=== PATIENT | female | born 1955 | race Caucasian/White ===

== ENCOUNTER 2022-10-17 10:20 | Outpatient (OUT) | payer MEDICARE, MEDICAID, SELFPAY ==
[2022-10-17 10:58] LABS: Basophils Absolute Auto 0.1 10^3/uL (0.0-0.1); Basophils Percent Auto 0.7 % (0.2-2.0); Eosinophils Absolute Auto 0.1 10^3/uL (0.0-0.7); Eosinophils Percent Auto 0.7 % (0.9-7.0); Hematocrit 41.6 % (36.0-48.0); Hemoglobin 14.1 g/dL (12.0-16.0); Immature Granulocytes Abs Auto 0.26 10^3/uL (0.00-0.03); Immature Granulocytes Pct Auto 1.6 % (0.0-0.5); Lymphocytes Absolute Auto 2.1 10^3/uL (1.2-3.8); Mean Corpuscular HGB Conc 33.9 g/dL (29.9-35.2); Mean Corpuscular Hemoglobin 31.6 pg (26.7-34.0); Mean Corpuscular Volume 93.3 fL (81.0-99.0); Mean Platelet Volume 8.7 fL (9.5-13.5); Monocytes Absolute Auto 1.4 10^3/uL (0.3-0.8); Monocytes Percent Auto 8.3 % (1.7-12.0); Neutrophils Absolute Auto 12.5 10^3/uL (1.4-6.5); Neutrophils Percent Auto 75.7 % (43.0-75.0); Platelet Count 430 10^3/uL (150-450); Red Blood Count 4.46 10^6/uL (4.20-5.40); Red Cell Distribution Width 14.4 % (11.0-15.0); White Blood Count 16.5 10^3/uL (4.0-11.0)
[2022-10-17 11:29] LABS: Partial Thromboplastin Time 25.1 sec (22.3-36.2); Prothrombin Time 9.6 sec (9.0-11.6)
[2022-10-17 11:49] LABS: INR <0.93
== END 2022-10-17 10:21 | disposition home or self-care (01) ==
PROVIDERS: PCP Family Medicine; Visit Provider Family Medicine
DX: R23.8 Other skin changes (principal)
CPT/HCPCS: 36415; 85002; 85025; 85610; 85730

== ENCOUNTER 2022-12-31 14:10 | Outpatient (OUT) | payer MEDICARE, MEDICAID, SELFPAY ==
--- NOTE | 2022-12-31 14:58 | CA_ITS ---
Patient Name: DAVION HUMPHREYS MR#: [id number] : 1955 Exam Date: 12/31/2022 Ordering Doctor: DR Ajith Miller . ECHOCARDIOGRAM REPORT PROCEDURE: CA ECHO DOPPLER COMPLETE INDICATIONS: Localized edema COMPARISON: None. DESCRIPTION: COMPLETE ECHOCARDIOGRAM Real-time transthoracic echocardiography with 2D, M-mode, spectral and color flow Doppler performed. QUALITY: Technical quality was good. LEFT VENTRICLE: Normal chamber size. Moderate concentric left ventricular hypertrophy (septum 1.9 cm, posterior wall 1.5 cm). Global left ventricular systolic function is normal. LV EF: Estimated left ventricular ejection fraction is 65-70% DIASTOLIC: Normal diastolic dysfunction. ATRIAL SEPTUM: LEFT ATRIUM: Normal chamber size. RIGHT ATRIUM: Normal chamber size. RIGHT VENTRICLE: Normal chamber size. Normal right ventricular systolic function. TRICUSPID VALVE: Normal mobility and thickness. No stenosis with trivial regurgitation. No evidence of pulmonary hypertension. Unable to assess right-sided pressures due to lack of measurable tricuspid regurgitation. MITRAL VALVE: Normal mobility and thickness. No evidence of mitral valve stenosis. Mild mitral annular calcification. Trivial mitral regurgitation. AORTIC VALVE: Normal trileaflet appearance. No visible sclerosis. Normal leaflet mobility. No evidence of aortic valve stenosis. No aortic regurgitation. AORTIC ROOT: Normal diameter and appearance. PULMONIC VALVE: Normal thickness and mobility. No stenosis. Trivial regurgitation. PERICARDIUM: No evidence of pericardial effusion. IVC: Collapses with inspirations. Normal size. PLEURA: CONCLUSION: 1. Moderate concentric left ventricular hypertrophy (septum 1.9 cm, posterior wall 1.5 cm) with normal systolic function. LVEF is estimated at 65 to 70%. 2. Normal right ventricular size and systolic function. 3. Normal diastolic function. 4. No significant valvular dysfunction. 5. Unable to assess right-sided pressures due to lack of measurable tricuspid regurgitation. Adult Echocardiography Procedure Report Left Ventricle LVEDD (3.7 - 5.6 cm): 4.60 cm LVESD (2.2 - 4.0 cm): 3.08 cm LVIVS thickness (0.6 - 1.2 cm): 1.88 cm LVPW thickness (0.5 - 1.0 cm): 1.55 cm e': 0.10 m/s E - e': 7.58 LVOT Max Gradient: 4.77 mm[Hg] LVOT Area (cm2): 1.09 m/s Peak Velocity (LVOT): 1.09 m/s Mean Velocity (LVOT): 0.73 m/s LVOT Diameter 2.29 cm Left Ventricular Ejection Fraction: 65-70 % Left Atrium LA Volume Index (2D A2C): 33.04 ml/m2 Left Atrium Systolic Dimension: 3.79 cm Mitral Valve MV E to A Ratio: 0.69, 0.70, 0.70 Mitral Valve A-Wave Peak Velocity: 1.05 m/s Mitral Valve E-Wave Peak Velocity: 0.73 m/s Right Ventricle RV Internal Diastolic Dimension: 3.11 cm Aorta AO Root Diam: 3.34 cm Ascending Ao Diam: 3.41 cm Aortic Valve AoV Area (Peak Rolly): 2.84 cm2, 2.84 cm2 AoV Area (VTI): 3.52 cm2, 3.52 cm2 Peak Velocity(Antegrade Flow): 1.59 m/s Peak Gradient(Antegrade Flow): 10.09 mm[Hg] Mean Velocity(Antegrade Flow): 1.02 m/s Mean Gradient(Antegrade Flow): 4.81 mm[Hg] Velocity Time Integral: 30.02 cm Tricuspid Valve Peak Velocity (Regurgitant Flow): 1.77 m/s, 1.34 m/s Pulmonic Valve Peak Velocity: 0.93 m/s Peak Gradient: 3.30 mm[Hg], 3.64 mm[Hg] Right Atrium Right Atrium Systolic Pressure: 24.12 ml, 24.12 ml Dictated by: Andrey Nguyen M.D. on 12/31/2022 at 16:18 Approved by: Andrey Nguyen M.D. on 12/31/2022 at 16:25
== END 2022-12-31 14:11 | disposition home or self-care (01) ==
LOC: CARD 14:10
PROVIDERS: PCP Family Medicine; Visit Provider Family Medicine
DX: R60.0 Localized edema (principal)
CPT/HCPCS: 93306

== ENCOUNTER 2023-01-16 13:05 | Outpatient (OUT) | payer MEDICARE, MEDICAID, SELFPAY ==
--- NOTE | 2023-01-16 13:07 | VEIN_ITS ---
Patient Name: DAVION HUMPHREYS MR#: [id number] : 1955 Exam Date: 01/16/2023 Ordering Doctor: DR WADE YU M.D. RADIOLOGY REPORT PROCEDURE: VC EXT VENOUS REFLUX BENJAMIN LMTD COMPARISON: None. 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 The study includes evaluation of the great saphenous vein (GSV), anterior accessory saphenous vein (AASV) and small saphenous vein (SSV). Patient scanned in reverse Trendelenburg and standing. FINDINGS: RIGHT LOWER EXTREMITY: Saphenofemoral Junction Reflux: Yes 6.2mm 1.1 sec GSV: Diam (mm) Reflux/ Time (sec) Proximal Thigh 6.7 Yes 1.2 Mid Thigh 5.0 Yes 0.9 Distal Thigh 4.8 Yes 1.3 Prox Calf 2.2 Yes 0.5 Mid Calf 2.3 Saphenopopliteal Junction Reflux: 4.0mm No SSV: Proximal Calf 3.3 Yes 0.7 Mid Calf 2.4 No AASV: Not present Proximal Thigh Mid Thigh Distal Thigh Thrombi: No acute or chronic thrombus visualized Compressibility: Normal Flow: Normal Preforator: Dist/med calf 2.7mm with 0s reflux. Tech Note: Incompetent GSV. Patent varicose vein dist/med calf 3.2mm with 0s reflux. Patent varicose vein prox/med calf 2.6mm with 0.6s reflux. Patent varicose vein mid/med thigh 4.8mm with 1.9s reflux. 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 Tech Note: Incompetent GSV. Patent varicose vein mid/med calf 2.8mm with 1.5s reflux. CONCLUSION: 1. 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 Consider consultation for endovenous ablation. Dictated by: Levi Alvarez M.D. on 01/17/2023 at 14:15 Approved by: Levi Alvarez M.D. on 01/17/2023 at 14:19
== END 2023-01-16 13:06 | disposition home or self-care (01) ==
LOC: VC 13:05
PROVIDERS: PCP Family Medicine; Visit Provider Radiology Diagnostic Radiology
DX: R60.0 Localized edema (principal); I83.813 Varicose veins of bilateral lower extremities with pain
CPT/HCPCS: 93970

== ENCOUNTER 2023-02-08 14:34 | Emergency (ER) | payer MEDICARE, MEDICAID, SELFPAY ==
--- OUTSIDE RECORDS SUMMARY | 2023-02-08 14:40 | XMS_ITS | CCD ---
Author Name Unknown Address [address] [place] [address] Organization [facility] Care Team Providers Care Phlebotomy Manager Name Role Phone Adán Miller Primary Care Physician [phone] Eula Tyler Unavailable Eula Tyler Primary Care Provider [phone] DAI ., DR MCCAIN Primary Care Unavailable HOY ., DR MCCAIN Admitting Unavailable HOY ., DR MCCAIN Attending Unavailable HOY ., DR MCCAIN Consulting Unavailable [facility]ANNA Consulting Unavailable HOY ., DR MCCAIN Primary Care Unavailable HOY ., DR MCCAIN Admitting Unavailable HOY ., DR MCCAIN Attending Unavailable HOY ., DR MCCAIN Consulting Unavailable HOY ., DR MCCAIN Consulting Unavailable HOY ., DR MCCAIN Primary Care Unavailable HOY ., DR MCCAIN Admitting Unavailable HOY ., DR MCCAIN Attending Unavailable HOONAH, DR WADE Lozada Consulting Unavailable HOY ., DR MCCAIN Consulting Unavailable HOY ., DR MCCAIN Primary Care Unavailable HOY ., DR MCCAIN Admitting Unavailable HOY ., DR MCCAIN Attending Unavailable YESENIA, DR SOFIE Shepherd Consulting Unavailable Eula Tyler Unavailable Eula Tyler Primary Care Provider Eula Vital Unavailable [phone] Eula Vital Primary Care Provider Adán Miller MD Primary Care Provider [phone] EULA TYLER Primary Care Unavailable MODEL, JOHN Referring Unavailable EULA TYLER Primary Care Unavailable MODEL, JOHN Referring Unavailable MODEL, JOHN Attending Unavailable EULA TYLER Referring Unavailable EULA TYLER Primary Care Unavailable ADÁN MILLER Primary Care Unavailable MODEL, JOHN Attending Unavailable ADÁN MILLER Primary Care Unavailable MODEL, JOHN Referring Unavailable EULA TYLER Primary Care Unavailable EULA TYLER Primary Care Unavailable MODEL, JOHN Referring Unavailable MODEL, JOHN Attending Unavailable MODEL, JOHN Referring Unavailable EULA TYLER Primary Care Unavailable PAULYANNA Attending Unavailable EULA TYLER Primary Care Unavailable MD Gerald Pham Admitting Unavailable Adán Miller Referring Unavailable LateshaarGerald Attending Unavailable LateshaarFelicery Admitting Unavailable Adán Miller Referring Unavailable Lateshaar, Gerald Attending Unavailable Barry Pickard Attending Unavailable Barry Pickard Referring Unavailable MD Barry Pickard Admitting Unavailable Zumbar, Gerald Referring Unavailable Zumbar, Gerald Admitting Unavailable Zumbar, Gerald Attending Unavailable Zumbar, Gerald Referring Unavailable Zumbar, Gerald Admitting Unavailable Zjesusar, Gerald Attending Unavailable Allergies Allergy Classification Reported Allergen(s) Allergy Type Date of Onset Reaction(s) Facility (2 sources) Codeine; Translations: [CODEINE] Drug Allergy 06-27-2022 [facility] Repository (8 sources) Codeine Drug Allergy 06-27-2022 GI Upset [facility] Medications Current Medications Medication Drug Class(es) Dates Sig (Normalized) Sig (Original) acetaminophen 325 mg / HYDROcodone bitartrate 5 mg oral tablet (17 sources) Opioid Agonist Start: 03-03-2019 take 1 tablet by mouth three times daily acetaminophen-hyd rocodone 325 mg-5 mg oral tablet 1 tab(s), Oral, TID, Refill(s) 0 Start Date: 03/03/19 Status: Ordered take 1 tablet by estehr th every eight hours as needed HYDROcodone-acetaminophen (NORCO) 5-325 mg per tablet Take 1 tablet by mouth every 8 hours as needed for pain. prn 0 Active Comment on above: Take 1 tablet by esther th every 8 hours as needed for pain. prn ascorbic acid 500 mg oral tablet (6 sources) Vitamin C Start: 1 take 500 mg by mouth once daily at bedtime Vitamin C 500 mg, Oral, Once a day (at bedtime), Refills(s) 0 Start Date: 11/30/20 Status: Ordered aspirin 81 mg delayed release oral tablet (6 sources) Platelet Aggregation Inhibitor, Nonsteroidal Anti-inflammatory Drug Start: 1 take 1 tablet by mouth once daily aspirin 81 mg Oral EC Tab 81 mg = 1 tab(s), Oral, Daily, Refills(s) 0 Start Date: 11/30/20 Status: Ordered Centrum Silver (6 sources) Start: 1 take 1 tablet by mouth once daily Centrum Silver 1 tab(s), Oral, Daily, Refill(s) 0 Start Date: 11/30/20 Status: Ordered Cymbalta 60 mg Cap-DR (4 sources) Start: 0 take 2 capsules by mouth once daily at bedtime Cymbalta 60 mg Cap-DR 120 mg, Oral, Once a day (at bedtime) Start Date: 03/03/19 Status: Ordered docusate sodium 100 mg oral capsule (15 sources) Start: 2 take 1 capsule by mouth twice daily as needed for constipation docusate sodium 100 mg Cap 100 mg = 1 cap(s), Oral, BID, PRN for constipation, # 20 cap(s), Refills(s) 0 Start Date: 11/20/21 Status: Ordered End: 01-22-2023 Docusate Sodium 100 mg tab T marvin by mouth. 0 01/22/2023 Discontinued Comment on above: Take by mouth. folic acid 1 mg oral tablet (10 sources) Start: 3 take 1 tablet by mouth once daily folic acid 1 mg Tab TAKE 1 TABLET BY MOUTH EVERY DAY FOR 30 DAYS Start Date: 01/20/23 Status: Ordered Comment on above: Take 1 tablet by [facility] once daily. losartan potassium 100 mg oral tablet (17 sources) Angiotensin 2 Receptor Clif Start: 0 take 1 tablet by mouth once daily losartan 100 mg Tab 100 mg = 1 tab(s), Oral, Daily Start Date: 03/03/19 Status: Ordered Comment on above: Take 100 mg by mouth once daily. methotrexate 2.5 mg oral tablet (12 sources) Folate Analog Metabolic Inhibitor Start: 3 take 4 tablets by mouth every week methotrexate 2.5 mg Tab TAKE 4 TABLETS BY MOUTH ONCE WEEKLY Start Date: 01/20/23 Status: Ordered Start: 09-25-2022 End: 12-12-2022 take 6 tablets by mouth every week methotrexate 2.5 mg tablet TAKE 6 TABLETS BY MOUTH ONE TIME A WEEK 72 tablet 1 12/12/2022 Active Start: 06-26-2022 End: 09-25-2022 take 4 tablets by mouth every week methotrexate 2.5 mg tablet Take 4 tablets by mouth one time a week. 20 tablet 2 06/26/2022 09/25/2022 Discontinued Comment on above: Take 4 tablets by mo uth one time a week. Take 6 tablets by mo uth one time a week. TAKE 6 TABLETS BY MO UTH ONE TIME A WEEK oxybutynin chloride 5 mg oral tablet (20 sources) Cholinergic Muscarinic Antagonist Start: 11-15-2021 take 1 tablet by mouth twice daily Oxytrol 5 mg Tab TAKE 1 TABLET BY MOUTH TWICE A DAY Start Date: 11/15/21 Status: Ordered take 1 tablet by esther once daily oxybutynin ER (DITROPAN XL) 10 mg 24 hr tablet Take 10 mg by mouth once daily. 0 Active End: 01-22-2023 take 1 tablet by mouth once daily oxybutynin (DITROPAN) 5 mg tablet Take 5 mg by mouth once daily. 0 01/22/2023 Discontinued take 1 tablet by esther three times daily oxybutynin (DITROPAN) 5 mg tablet Take 5 mg by mouth three times daily. 0 Active Comment on above: Take 5 mg by mouth t hree times daily. Take 10 mg by mouth once daily. Take 5 mg by mouth o nce daily. predniSONE 10 mg oral tablet (11 sources) Start: 01-20-2023 take 1 tablet by mouth once daily predniSONE 10 mg Tab TAKE 1 TABLET BY MOUTH EVERY DAY Start Date: 01/20/23 Status: Ordered Start: 12-19-2022 take 2 tablets by mo uth once daily predniSONE (DELTASONE) 5 mg tablet Take 2 tablets by mouth once daily. 180 tablet 0 12/19/2022 Active Start: 09-25-2022 take 1 tablet by esther once daily predniSONE (DELTASONE) 5 mg tablet Take 1 tablet by mouth once daily. 90 tablet 0 09/25/2022 Active Start: 09-17-2022 End: 09-25-2022 take 1 tablet by mouth once daily predniSONE (DELTASONE) 10 mg tablet Indications: Connective tissue disease (HCC) TAKE 1 TABLET BY MOUTH EVERY DAY 30 tablet 0 09/17/2022 09/25/2022 Discontinued Start: 06-26-2022 take 1 tablet by esther th once daily predniSONE (DELTASONE) 10 mg tablet Take 1 tablet by mouth once daily. 30 tablet 2 06/26/2022 Active Comment on above: Take 1 tablet by esther th once daily. TAKE 1 TABLET BY ESTHER TH EVERY DAY Take 2 tablets by mo [facility] once daily. tiZANidine 4 mg oral tablet (15 sources) Central alpha-2 Adrenergic Agonist Start: 01-23-2022 take 2 tablets by mouth once daily at bedtime tiZANidine 4 mg Tab TAKE 2 TABLETS BY MOUTH EVERY DAY AT BEDTIME Start Date: 01/23/22 Status: Ordered take 2 capsules by m out every eight hours as needed tiZANidine HCl (ZANAFLEX) 4 mg capsule Take 8 mg by mouth three times daily as needed. 0 Active Comment on above: Take 8 mg by mouth t hree times daily as needed. Vitamin D3 (6 sources) Start: 11-30-2020 take 125 ug by mouth once daily at bedtime Vitamin D3 125 mcg, Oral, Once a day (at bedtime), Refills(s) 0 Start Date: 11/30/20 Status: Ordered Zinc (6 sources) Start: 11-30-2020 take 50 mg by mouth once daily Zinc 50 mg, Oral, Daily, Refills(s) 0 Start Date: 11/30/20 Status: Ordered Completed/Discontinued Medications Medication Drug Class(es) Dates Sig (Normalized) Sig (Original) celecoxib 100 mg oral capsule (10 sources) Nonsteroidal Anti-inflammatory Drug End: 01-22-2023 take 1 capsule by mouth once daily celecoxib (CELEBREX) 100 mg capsule Take 100 mg by mouth once daily. 0 01/22/2023 Discontinued take 1 capsule by mouth twice da joe celecoxib (CELEBREX) 100 mg capsule Take 100 mg by mouth twice daily. 0 Active Comment on above: Take 100 mg by mouth twice daily. Take 100 mg by mouth once daily. DULoxetine 60 mg delayed release oral capsule (10 sources) Serotonin and Norepinephrine Reuptake Inhibitor Start : 03-03 End: 01-22 take 2 capsules by mouth once daily DULoxetine (CYMBALTA) 60 mg capsule 2 capsules Orally Once a day 0 03/03/2019 01/22/2023 Discontinued Comment on above: 2 capsules Orally On ce a day hydroxychloroquine sulfate 200 mg oral tablet (1 source) Antimalarial, Antirheumatic Agent Start : 01-22 take 1 tablet by mouth twice daily hydrOXYchloroQUINE (PLAQUENIL) 200 mg tablet Take 1 tablet by mouth two times a day. 60 tablet 2 01/22/2023 Active Comment on above: Take 1 tablet by esther th two times a day. ketoconazole 20 mg/ml topical cream (9 sources) Azole Antifungal Start : 06-27 End: 11-07 ketoconazole (NIZORAL) 2 % cream APPLY TO AFFECTED AREA TWICE DAILY FOR SKIN FOLDS 60 g 3 11/07/2022 Active Comment on above: Apply to affected ar ea twice daily. For skin folds APPLY TO AFFECTED AR EA TWICE DAILY FOR SKIN FOLDS triamcinolone acetonide 0.92366 mg/mg topical ointment (8 sources) Corticosteroid Start : 06-27 triamcinolone (KENALOG) 0.025 % ointment Apply to affected area twice daily. For psoriasis 80 g 3 06/27/2022 Active Comment on above: Apply to affected ar ea twice daily. For psoriasis Problems Active Problems Problem Classification Problem Date Documented Date Episodic/Chronic Deficiency and other anemia (1 source) Anemia, unspecified; Translations: [ANEMIA UNSPECIFIED] Onset: 04-30-2022 Episodic Diabetes mellitus without complication (1 source) Other abnormal glucose; Translations: [OTHER ABNORMAL GLUCOSE] Onset: 04-30-2022 Episodic Disorders of lipid metabolism (8 sources) Hyperlipidemia; Translations: [Hyperlipidemia, unspecified] Onset: 04-30-2022 03-03-2019 Chronic Essential hypertension (8 sources) Hypertensive disorder; Translations: [Essential (primary) hypertension] Onset: 04-30-2022 03-03-2019 Chronic Genitourinary symptoms and ill-defined conditions (4 sources) Personal history of other diseases of urinary system; Translations: [PERSONAL HX OTH DZ URINARY SYSTEM] Onset: 05-14-2022 Episodic Osteoarthritis (1 source) Arthritis; Translations: [Unspecified osteoarthritis, unspecified site] Chronic Other acquired deformities (1 source) Other forms of scoliosis, thoracolumbar region; Translations: [OTH FORMS SCOLIOSIS THORACOLUMBAR] Onset: 04-04-2022 Chronic Other aftercare (4 sources) Patient encounter status; Translations: [Encounter for therapeutic drug level monitoring] Episodic Other connective tissue disease (7 sources) Ganglion cyst of right wrist 03-03-2019 Episodic Other connective tissue disease (1 source) Swelling of hand; Translations: [Other specified soft tissue disorders] Episodic Other connective tissue disease (1 source) Pain in left arm; Translations: [PAIN IN LEFT ARM] Onset: 06-26-2022 Episodic Other connective tissue disease (1 source) Pain in right arm; Translations: [PAIN IN RIGHT ARM] Onset: 06-26-2022 Episodic Other connective tissue disease (1 source) H/O: osteoarthritis 06-26-2022 Episodic Other inflammatory condition of skin (2 sources) Psoriasis; Translations: [Psoriasis, unspecified] Chronic Other inflammatory condition of skin (1 source) Psoriasis, unspecified; Translations: [Psoriasis] Onset: 06-27-2022 Chronic Other inflammatory condition of skin (1 source) Intertrigo; Translations: [Erythema intertrigo] Episodic Other non-traumatic joint disorders (4 sources) Pain in unspecified joint; Translations: [PAIN IN UNSPECIFIED JOINT] Onset: 03-29-2022 Episodic Other nutritional; endocrine; and metabolic disorders (7 sources) Obesity 11-30-2020 Chronic Other nutritional; endocrine; and metabolic disorders (1 source) Obesity, unspecified; Translations: [OBESITY UNSPECIFIED] Onset: 04-30-2022 Chronic Other screening for suspected conditions (not mental disorders or infectious disease) (1 source) Encounter for screening for malignant neoplasm of rectum; Translations: [ENC SCREEN MALIG NEOPLASM RECTUM] Onset: 04-30-2022 Episodic Residual codes; unclassified (5 sources) Localized edema; Translations: [LOCALIZED EDEMA] Onset: 04-04-2022 Episodic Rheumatoid arthritis and related disease (4 sources) Seropositive rheumatoid arthritis; Translations: [Rheumatoid arthritis with rheumatoid factor, unspecified] Onset: 09-25-2022 09-25-2022 Chronic Substance-related disorders (7 sources) Smoker 11-30-2020 Chronic Past or Other Problems Problem Classification Problem Date Documented Da te Episodic/Chronic Other aftercare (1 source) Encounter for therapeutic drug level monitoring; Translations: [Medication monitoring encounter] Onset: 09-25-2022 Episodic Other connective tissue disease (1 source) Other specified soft tissue disorders; Translations: [Bilateral hand swelling] Onset: 06-24-2022 Episodic Other inflammatory condition of skin (1 source) Erythema intertrigo; Translations: [Intertrigo] Onset: 06-27-2022 Episodic Results Test Name Value Interpretation Reference Range Facility Operative Reporton 3 Operative Report Patient: SHELLY HUMPHREYS Age: 67 years Sex: Female : 1955 Associated Diagnoses: None Author: Barry Pickard MD Procedure Procedure: Transforaminal Epidural Steroid Injections with Fluoroscopic Guidance at Bilateral L5/S1 Diagnosis: Lumbar Foraminal Stenosis Anesthesia: local The patient was identified in the pre-op area. The procedure, including risks benefits and alternatives was discussed with the patient. The patient agreed to proceed. Informed consent was obtained and the site(s) marked. The patient was brought to the procedure room and placed in the prone position with padding under the abdomen to reduce lumbar lordosis. Time out was performed. The back was prepped and draped in sterile fashion with Chloraprep. Skin and subcutaneous tissues were anesthetized with 6 mL of Lidocaine 2% through a 25G needle. 22G spinal needles were advanced under fluoroscopic guidance through the bilateral L5/S1 foramina into the epidural space. Isovue 0.5mL was injected under live fluoroscopy at each level which demonstrated appropriate epidural spread without vascular uptake. After confirmation of negative aspiration, a total of 1mL of 2% PF lidocaine, 1mL of PF normal saline, and 10mg of PF dexamethasone (10mg/1mL) were injected in equally divided doses through the needles. The needles were removed and a bandage applied. The patient was brought to the recovery area in stable condition and then monitored for an appropriate period of time. The patient was discharged home in good condition with post-procedure instructions. No apparent complications. Epidural injection procedure Physical Exam: vital signs Vital Signs 01/20/2023 13:43 EST Heart Rate Monitored 76 bpm Systolic Blood Pressure 159 mmHg HI Diastolic Blood Pressure 94 mmHg HI SpO2 98 % 01/20/2023 13:35 EST Heart Rate Monitored 87 bpm SpO2 98 % 01/20/2023 13:35 EST Systolic Blood Pressure 140 mmHg HI Diastolic Blood Pressure 77 mmHg Mean Arterial Pressure, Monitered 98 mmHg 01/20/2023 13:33 EST Respiratory Rate 14 br/min . 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 Unable to work Under stress because of that F/u RA Mild skin psoriasis Prednisone 10 mg/d MTX 6 tabs/week Folic acid Since MOR: She is off Celebrex and Cymbalta Bruising and brain fog improved 90% better with prednisone and mtx Ready to start prednisone taper-hasn't done it yet, was advised last time Would like HCQ addition Not open to biologics No problems with mtx Still has LE edema Will need vein surgery Still lots of fatigue Am stiffness less than 60 min Saw derm-min psoriasis and intertrigo Component Latest Ref Rng AND Units 06/24/2022 08/06/2022 CCP Antibody IgG Qualitative Negative Strong Positive (A) CCP Antibody, IgG <20 Units 78 (H) WSR 0 - 20 mm/hr 21 (H) 18 CRP <0.9 mg/dL 0.5 Rheumatoid Factor <16 IU/mL <10 BABATUNDE Scr Qual Negative Negative CK 42 - 196 U/L 37 (L) Uric Acid 2.5 - 6.6 mg/dL 4.4 Lab 02/08 Hep panel 08/09 Cxr 08/09 Sed Rate, Westergren Date Value Ref Range Status 01/17/2023 12 0 - 20 mm/hr Final 09/25/2022 15 0 - 20 mm/hr Final 08/06/2022 18 0 - 20 mm/hr Final 06/24/2022 21 (H) 0 - 20 mm/hr Final Previous notes: 2 mo ago she developed left index finger followed by right wrist. She had XR showing osteoarthritis. Dr Miller her PCP from [facility] in [place] prescribed prednisone 40 mg/d x 5. Reduced the swelling. Then she had another attack in B hands and she was put on 60 mg/d of prednisone x 5 d and she is on the last day now. She is ok today She developed psoriasis in the past year. She is concerned about PsA Smoker 1 ppd x 40 years No FH of psoriasis and IA FH-pancreatic cancer, colon ca, CAD, DM Outside record- MRI LS and LS sp xr Left hand xr ok Cbc cmp tsh done Current Outpatient Medications Medication Sig predniSONE (DELTASONE) 5 mg tablet Take 2 tablets by mouth once daily. methotrexate 2.5 mg tablet TAKE 6 TABLETS BY MOUTH ONE TIME A WEEK ketoconazole (NIZORAL) 2 % cream APPLY TO AFFECTED AREA TWICE DAILY FOR SKIN FOLDS triamcinolone (KENALOG) 0.025 % ointment Apply to affected area twice daily. For psoriasis folic acid 1 mg tablet Take 1 tablet by mouth once daily. losartan (COZAAR) 100 mg tablet Take 100 mg by mouth once daily. oxybutynin ER (DITROPAN XL) 10 mg 24 hr tablet Take 10 mg by mouth once daily. tiZANidine HCl (ZANAFLEX) 4 mg capsule Take 8 mg by mouth three times daily as needed. HYDROcodone-acetamino phen (NORCO) 5-325 mg per tablet Take 1 tablet by mouth every 8 hours as needed for pain. prn No current facility-administered medications for this visit. ALLERGIES Allergen Reactions Codeine GI Upset Answers submitted by the patient for this visit: Review of Systems Rheumatology (Submitted on 01/15/2023) Fever : No Recent unintentional weight change: No Eye pain: No Eye redness: No Vision Disturbance: No Eye Dryness: No Nosebleeds: No Sores in your mouth: No Trouble Swallowing: No Dry Mouth: No Chest pain: No Leg Swelling: Yes A cough: No Shortness of breath: No Pain with breathing: No Heartburn: No Abdominal pain: No Diarrhea: No Black tarry stools: No Blood in urine: No Pain or burning with urination: No Joint pain or stiffness: Yes Muscle weakness: Yes Muscle aches: Yes Joint swelling: Yes Morning Stiffness in Joints: Yes A rash: No Skin Color Changes: No Hair Loss: No Nail Changes: No Headaches: No Numbness: No Memory Loss: No Swollen Glands: No RAPID 3: DISEASE ACTIVITY: RAPID-3 Weighed Score 06/23/2022 09/23/2022 01/15/2023 RAPID 3 Weighed Score 4.61 (High Severity (HS)) 4.17 (High Severity (HS)) 4.44 (High Severity (HS)) Weighed Score Levels: 0 - 1: Near Remission 1.3 - 2.0: Low Severity 2.3 - 4.0: Moderate Severity 4.3 - 10.0: High Severity PHYSICAL EXAMINATION: General appearance: cushingoid Skin: many bruises and excoriations improved Neck: supple, FROM Lungs: Lungs clear to auscultation. No wheezing, rhonchi, rales Heart: RRR without murmur, Extremities: 1+ edema Musculoskeletal: no synovitis Impression (M05.9) Seropositive rheumatoid arthritis (HCC) (primary encounter diagnosis) Comment: +CCP, neg RF Improved on mtx/prednisone Plan: Continue MTX to 6 tabs/week Decrease prednisone 5 mg/dx 2 weeks, the 2.5 mg/d x 2 weeks Continue folic acid Add HCQ 200 mg bid Discussed medication dosage, usage, goals of therapy, and side effects. (Worsening psoriasis, skin psoriasis, headaches) (Z51.81) Medication monitoring encounter Comment: MTX HCQ Plan Had labs -- q 3 mo See ophthalmology (more content not included)... Normal [facility] Consent for Procedure/Surger yon 01-20-2023 Consent for Procedure/Surgery [id number]# 1.00TIFF Normal [facility] Consent for Treatmenton Consent for Treatment [id number]#1 .00TIFF [facility] Discharge Instructionson Discharge Instructions [id number]# 1.00TIFF Normal [facility] IntraOperative Documentson 1 03-23-2022 IntraOperative Documents [id number]# 1.00TIFF Normal [facility] Main OR Intraoperative Recor don 01-20-2023 Main OR Intraoperative Record IntraOp Document Type FTPM Summary Primary Physician: Barry Pickard MD Finalized Date/Time: 01/20/23 13:46:44 Pt. Name: SHELLY HUMPHREYS/Sex: 1955 Female Med Rec #: [id number] Physician: Barry Pickard MD Financial #: [id number] Pt. Type: P Room/Bed: / Admit/Disch: 01/20/23 13:21:57 - Institution: Case Times FTPM Entry 1 Patient Times In Room 01/20/23 13:40:00 Out Room 01/20/23 13:46:00 Procedure Times Start 01/20/23 13:43:00 Stop 01/20/23 13:45:00 Anesthesia Times Last Modified By: Padmini Morejon RN 01/20/23 13:46:05 Case Attendance FTPM Entry 1 Entry 2 Entry 3 Case Attendee Neeraj HUDSON, Barry Morejon RN, Padmini Hernandez RN, Addis Ana Role Performed Surgeon - Primary Phlebotomy Coordinator - Primary Scrub - Primary Time In 01/20/23 13:40:00 01/20/23 13:40:00 01/20/23 13:40:00 Time Out 01/20/23 13:46:00 01/20/23 13:46:00 01/20/23 13:46:00 Procedure TRANSFORAMINAL EPIDURAL TRANSFORAMINAL EPIDURAL TRANSFORAMINAL EPIDURAL STEROID STEROID STEROID INJECTIO(Bilateral) INJECTIO(Bilateral) INJECTIO(Bilateral) Comments Last Modified By: Jean-Pierre ROSE, Padmini Morejon RN, Padmini Morejon RN, Padmini Waters 01/20/23 13:46:06 01/20/23 13:46:06 01/20/23 13:46:06 Entry 4 Case Attendee Jessy FIGUEROA(R)Shannon Role Performed Ghost Writer Time In 01/20/23 13:40:00 Time Out 01/20/23 13:46:00 Procedure TRANSFORAMINAL EPIDURAL STEROID INJECTIO(Bilateral) Comments Last Modified By: Padmini Morejon RN 01/20/23 13:46:06 Perioperative Protocols FTPM Pre-Care Text: Implements protective measures prior to operative or invasive procedure, confirms identity before the operative or invasive procedure, verifies operative procedure, surgical site, and laterality Entry 1 Procedure(s) TRANSFORAMINAL EPIDURAL Patient Identity Birthday, ID Band STEROID Verified (select at Check, Patient INJECTIO(Bilateral) least 2): Participation Consents / H and P HandP, Surgery/Procedure Operative Site Present Verified Consent Marking Verified Surgical Site Yes Laterality Verified Yes Verified Procedure Verified Yes Correct Patient Yes Position Verified Availability Equipment, Medication, Prep Dry Yes Verified (If X-ray Applicable) PreOp Antibiotic No Time Out Padmini Morejon RN, Given Participants Mary ROSE, Neeraj Padilla MD, Joshua D, Christman RT(R)Shannon Time Out Complete 01/20/23 13:40:00 Outcomes Met? Yes Last Modified By: Padmini Morejon RN 01/20/23 13:41:45 Post-Care Text: The patient is free from signs and symptoms of injury caused by extraneous objects Allergy Information FTPM Pre-Care Text: Verifies allergies Entry 1 Allergies Reviewed? Yes Allergies Reviewed Self/Patient With Outcomes Met? Yes Last Modified By: Padmini Morejon RN 01/20/23 13:40:13 Post-Care Text: The patient received appropriate medication(s) safely administered during the perioperative period Surgical Procedures FTPM Entry 1 Procedure Description Procedure TRANSFORAMINAL EPIDURAL Modifiers Bilateral STEROID INJECTION Surgeon Description L5 TFESI Primary Procedure Yes Primary Surgeon Barry Pickard MD Start 01/20/23 13:43:00 Stop 01/20/23 13:45:00 Anesthesia Type None Surgical Service Pain Management Wound Class 1 - Clean Last Modified By: Padmini Morejon RN 01/20/23 13:46:08 General Case Data FTPM Pre-Care Text: Classifies surgical wound, implements aseptic technique, initiates traffic control Entry 1 Case Information OR Pain Proc Room Case Level Level 2 Wound Class 1 - Clean Specialty Pain Management Preop Diagnosis M48.07 Postop Same As Preop Yes Postop Diagnosis M48.07 Outcomes Met? Yes Last Modified By: Padmini Morejon RN 01/20/23 13:41:58 Post-Care Text: The patient is free from signs and symptoms of infection Skin Assessment (Pre Procedure) FTPM Pre-Care Text: Implements protective measures to prevent skin/ tissue injury due to thermal or mechanical sources Evaluates for signs and symptoms of physical injury to skin and tissue Entry 1 Skin Integrity Intact, Basco, Warm, and Skin Abnormality No Dry Outcomes Met? Yes Last Modified By: Padmini Morejon RN 01/20/23 13:40:20 Post-Care Text: The patient is free from signs and symptoms of injury caused by extraneous objects Patient Positioning FTPM Pre-Care Text: Identifies physical alterations that require additional precautions for procedure-specific positioning, verifies presence of prosthetics or corrective devices, positions the patient, evaluates the patient for signs and symptoms of injury as a result of positioning Entry 1 Procedure TRANSFORAMINAL EPIDURAL Body Position Prone STEROID INJECTIO(Bilateral) Feet Uncrossed? Yes Left Arm Position Resting at Side Right Arm Position Resting at Side Left Leg Position Extended Right Leg Position Extended Positioning Device Pillow Under Head Large, Safety Strap, (more content not included)... Normal [facility] Main OR Preoperative Recordo n 01-20-2023 Main OR Preoperative Record Holding Area Document Type FTPM Summary Primary Physician: Barry Pickard MD Finalized Date/Time: 01/20/23 13:38:50 Pt. Name: SHELLY HUMPHREYS/Sex: 1955 Female Med Rec #: [id number] Physician: Barry Pickard MD Financial #: [id number] Pt. Type: P Room/Bed: / Admit/Disch: 01/20/23 13:21:57 - Institution: Case Times Holding FTPM Pre-Care Text: Verifies consent for planned procedure, identifies individual values and wishes concerning care, includes family members in perioperative teaching Secures patient's records' belongings, and valuables, maintains patient's dignity and privacy, and maintains patient confidentiality Entry 1 In Holding 01/20/23 13:27:00 Outcomes Met? Yes Last Modified By: Suzette Ferrer RN 01/20/23 13:27:26 Post-Care Text: The patient participates in decisions affecting his or her perioperative plan of care The patient's right to privacy is maintained Surgery Checklist FTPM Entry 1 Patient Birthday, ID Band Procedure History and Physical, Identification: Check, Patient Verification: Surgical Consent, With Participation Patient NPO after Midnight: n/a Date/Time: 01/20/23 10:00:00 Results Reviewed coffee and crackers Personal Items: Dentures, Jewelry Comments: Personal Items 2 necklaces, 2 rings Complaints of Pain: Yes Comment: Pain Comment: 06/26 to lower legs and Operative Site Yes back Marking: Marked By: operative site marked Location: bilateral L5 by Dr. Pickard Availability X-Ray Verified: Does Patient Smoke Yes If Yes to Smoking. 1 PACK DAILY Cigars or Cigarettes. How much per day? Patient states Yes Comment - Adult Josafat -brother postop adult Supervision supervision available Case Cancelled in No Holding Area see comments below for reason Last Modified By: Suzette Ferrer RN 01/20/23 13:29:40 Finalized By: Suzette Ferrer RN Document Signatures Signed By: Suzette Ferrer RN 01/20/23 13:38 Normal [facility] CBC W Auto Differential pane l (Bld)on 01-17-2023 Basophils (Bld) [#/Vol] 0.12 10*3/uL High <0.11 [facility] Comment on above: Order Comment: Speci men Type: BLOOD SPECIMENOrdering Facility: [facility] Address: [address] [place] [address] Performed By: #### 5 7021-8 ####[facility] LABCLIA [id number] [place] [address] Basophils/100 WBC (Bld) 0.8 % Normal [facility] Comment on above: Order Comment: Speci men Type: BLOOD SPECIMENOrdering Facility: [facility] Address: [address] [place] [address] Performed By: #### 5 7021-8 ####[facility] LABCLIA [id number] [place] [address] Differential cell count method Nom (Bld) Auto Normal [facility] Comment on above: Order Comment: Speci men Type: BLOOD SPECIMENOrdering Facility: [facility] Address: [address] [place] [address] Performed By: #### 5 7021-8 ####[facility] LABCLIA [id number] [place] [address] Eosinophils (Bld) [#/Vol] 0.17 10*3/uL Normal <0.46 [facility] Comment on above: Order Comment: Speci men Type: BLOOD SPECIMENOrdering Facility: [facility] Address: [address] [place] [address] Performed By: #### 5 7021-8 ####[facility] LABIA [id number] [place] [address] Eosinophils/100 WBC (Bld) 1.1 % Normal [facility] Comment on above: Order Comment: Speci men Type: BLOOD SPECIMENOrdering Facility: [facility] Address: [address] [place] [address] Performed By: #### 5 7021-8 ####[facility] LABCLIA [id number] [place] [address] Erythrocyte distribution width (RBC) [Ratio] 13.2 % Normal 11.5-15.0 [facility] Comment on above: Order Comment: Speci men Type: BLOOD SPECIMENOrdering Facility: [facility] Address: [address] [place] [address] Performed By: #### 5 7021-8 ####[facility] LABIA [id number] [place] [address] Hematocrit (Bld) [Volume fraction] 44.1 % Normal 36.0-46.0 [facility] Comment on above: Order Comment: Speci men Type: BLOOD SPECIMENOrdering Facility: [facility] Address: [address] [place] [address] Performed By: #### 5 7021-8 ####[facility] LABCLIA [id number] [place] [address] Hemoglobin (Bld) [Mass/Vol] 14.4 g/dL Normal 11.5-15.5 [facility] Comment on above: Order Comment: Speci men Type: BLOOD SPECIMENOrdering Facility: [facility] Address: [address] [place] [address] Performed By: #### 5 7021-8 ####[facility] LABCLIA [id number] [place] [address] Immature granulocytes (Bld) [#/Vol] 0.12 10*3/uL High <0.10 [facility] Comment on above: Order Comment: Speci men Type: BLOOD SPECIMENOrdering Facility: [facility] Address: [address] [place] [address] Performed By: #### 5 7021-8 ####[facility] LABCLIA [id number] [place] [address] Immature granulocytes/100 WBC (Bld) 0.8 % Normal [facility] Comment on above: Order Comment: Speci men Type: BLOOD SPECIMENOrdering Facility: [facility] Address: [address] [place] [address] Performed By: #### 5 7021-8 ####[facility] LABCLIA [id number] [place] [address] Lymphocytes (Bld) [#/Vol] 2.38 10*3/uL Normal 1.00-4.00 [facility] Comment on above: Order Comment: Speci men Type: BLOOD SPECIMENOrdering Facility: [facility] Address: [address] [place] [address] Performed By: #### 5 7021-8 ####[facility] LABCLIA [id number] [place] [address] Lymphocytes/100 WBC (Bld) 15.3 % Normal [facility] Comment on above: Order Comment: Speci men Type: BLOOD SPECIMENOrdering Facility: [facility] Address: [address] [place] [address] Performed By: #### 5 7021-8 ####[facility] LABCLIA [id number] [place] [address] MCH (RBC) [Entitic mass] 31.4 pg Normal 26.0-34.0 [facility] Comment on above: Order Comment: Speci men Type: BLOOD SPECIMENOrdering Facility: [facility] Address: [address] [place] [address] Performed By: #### 5 7021-8 ####[facility] LABCLIA [id number] [place] [address] MCHC (RBC) [Mass/Vol] 32.7 g/dL Normal 30.5-36.0 [facility] Comment on above: Order Comment: Speci men Type: BLOOD SPECIMENOrdering Facility: [facility] Address: [address] [place] [address] Performed By: #### 5 7021-8 ####[facility] LABCLIA [id number] [place] [address] MCV (RBC) [Entitic vol] 96.3 fL Normal 80.0-100.0 [facility] Comment on above: Order Comment: Speci men Type: BLOOD SPECIMENOrdering Facility: [facility] Address: [address] [place] [address] Performed By: #### 5 7021-8 ####[facility] LABCLIA [id number] [place] [address] Monocytes (Bld) [#/Vol] 1.19 10*3/uL High <0.87 [facility] Comment on above: Order Comment: Speci men Type: BLOOD SPECIMENOrdering Facility: [facility] Address: [address] [place] [address] Performed By: #### 5 7021-8 ####[facility] LABCLIA [id number] [place] [address] Monocytes/100 WBC (Bld) 7.7 % Normal [facility] Comment on above: Order Comment: Speci men Type: BLOOD SPECIMENOrdering Facility: [facility] Address: [address] [place] [address] Performed By: #### 5 7021-8 ####[facility] LABCLIA [id number] [place] [address] Neutrophils (Bld) [#/Vol] 11.55 10*3/uL High 1.45-7.50 [facility] Comment on above: Order Comment: Speci men Type: BLOOD SPECIMENOrdering Facility: [facility] Address: [address] [place] [address] Performed By: #### 5 7021-8 ####[facility] LABIA [id number] [place] [address] Neutrophils/100 WBC (Bld) 74.3 % Normal [facility] Comment on above: Order Comment: Speci men Type: BLOOD SPECIMENOrdering Facility: [facility] Address: [address] [place] [address] Performed By: #### 5 7021-8 ####[facility] LABCLIA [id number] [place] [address] Nucleated RBC (Bld) [#/Vol] 10*3/uL Normal <0.01 [facility] Comment on above: Order Comment: Speci men Type: BLOOD SPECIMENOrdering Facility: [facility] Address: [address] [place] [address] Performed By: #### 5 7021-8 ####[facility] LABIA [id number] [place] [address] Nucleated RBC/100 WBC (Bld) [Ratio] 0.0 /100 WBC Normal [facility] Comment on above: Order Comment: Speci men Type: BLOOD SPECIMENOrdering Facility: [facility] Address: [address] [place] [address] Performed By: #### 5 7021-8 ####[facility] LABCLIA [id number] [place] [address] Platelet mean volume (Bld) [Entitic vol] 8.8 fL Low 9.0-12.7 [facility] Comment on above: Order Comment: Speci men Type: BLOOD SPECIMENOrdering Facility: [facility] Address: [address] [place] [address] Performed By: #### 5 7021-8 ####[facility] LABCLIA [id number] [place] [address] Platelets (Bld) [#/Vol] 413 10*3/uL High 150-400 [facility] Comment on above: Order Comment: Speci men Type: BLOOD SPECIMENOrdering Facility: [facility] Address: [address] [place] [address] Performed By: #### 5 7021-8 ####[facility] LABCLIA [id number] [place] [address] RBC (Bld) [#/Vol] 4.58 10*6/uL Normal 3.90-5.20 [facility] Comment on above: Order Comment: Speci men Type: BLOOD SPECIMENOrdering Facility: [facility] Address: [address] [place] [address] Performed By: #### 5 7021-8 ####[facility] LABCLIA [id number] [place] [address] WBC (Bld) [#/Vol] 15.53 10*3/uL High 3.70-11.00 [facility] Comment on above: Order Comment: Speci men Type: BLOOD SPECIMENOrdering Facility: [facility] Address: [address] [place] [address] Performed By: #### 5 7021-8 ####[facility] LABCLIA [id number] [place] [address] Comprehensive metabolic 2000 panelon 01-17-2023 Albumin [Mass/Vol] 4.5 g/dL Normal 3.9-4.9 [facility] Comment on above: Order Comment: Speci men Type: BLOOD SPECIMENOrdering Facility: [facility] Address: [address] [place] [address] Performed By: #### 2 4323-8 ####[facility] LABCLIA [id number] [place] [address] ALP [Catalytic activity/Vol] 75 U/L Normal 34-123 [facility] Comment on above: Order Comment: Speci men Type: BLOOD SPECIMENOrdering Facility: [facility] Address: [address] [place] [address] Performed By: #### 2 4323-8 ####[facility] LABCLIA [id number] [place] [address] ALT [Catalytic activity/Vol] 12 U/L Normal 7-38 [facility] Comment on above: Order Comment: Speci men Type: BLOOD SPECIMENOrdering Facility: [facility] Address: [address] [place] [address] Performed By: #### 2 4323-8 ####[facility] LABCLIA [id number] [place] [address] Anion gap [Moles/Vol] 9 mmol/L Normal 9-18 [facility] Comment on above: Order Comment: Speci men Type: BLOOD SPECIMENOrdering Facility: [facility] Address: [address] [place] [address] Performed By: #### 2 4323-8 ####[facility] LABCLIA [id number] [place] [address] AST [Catalytic activity/Vol] 17 U/L Normal 13-35 [facility] Comment on above: Order Comment: Speci men Type: BLOOD SPECIMENOrdering Facility: [facility] Address: [address] [place] [address] Performed By: #### 2 4323-8 ####[facility] LABCLIA [id number] [place] [address] Bilirubin [Mass/Vol] 0.4 mg/dL Normal 0.2-1.3 [facility] Comment on above: Order Comment: Speci men Type: BLOOD SPECIMENOrdering Facility: [facility] Address: [address] [place] [address] Performed By: #### 2 4323-8 ####[facility] LABCLIA [id number] [place] [address] Calcium [Mass/Vol] 9.6 mg/dL Normal 8.5-10.2 [facility] Comment on above: Order Comment: Speci men Type: BLOOD SPECIMENOrdering Facility: [facility] Address: [address] [place] [address] Performed By: #### 2 4323-8 ####[facility] LABCLIA [id number] [place] [address] Chloride [Moles/Vol] 101 mmol/L Normal 97-105 [facility] Comment on above: Order Comment: Speci men Type: BLOOD SPECIMENOrdering Facility: [facility] Address: [address] [place] [address] Performed By: #### 2 4323-8 ####[facility] LABCLIA [id number] [place] [address] CO2 [Moles/Vol] 28 mmol/L Normal 22-30 [facility] Comment on above: Order Comment: Speci men Type: BLOOD SPECIMENOrdering Facility: [facility] Address: [address] [place] [address] Performed By: #### 2 4323-8 ####[facility] LABCLIA [id number] [place] [address] Creatinine [Mass/Vol] 0.67 mg/dL Normal 0.58-0.96 [facility] Comment on above: Order Comment: Speci men Type: BLOOD SPECIMENOrdering Facility: [facility] Address: [address] [place], [place] [address] Performed By: #### 2 4323-8 ####[facility] LABCLIA [id number] [place] [address] Creatinine and Glomerular filtration rate.predicted panel (S/P/Bld) 96 mL/min/1.73m??? Normal >=60 [facility] Comment on above: Order Comment: Tam purvis Type: BLOOD SPECIMENOrdering Facility: [facility] Address: [address] [place] [address] Result Comment: Carmen mated Glomerular Filtration Rate (eGFR) is calculated using the 2020 CKD-EPI creatinine equation. This equation utilizes serum creatinine, sex, and age as parameters. The creatinine assay has traceable calibration to isotope dilution-mass spectrometry. Refer to KDIGO guidelines for clinical interpretation. In patients with unstable renal function, e.g. those with acute kidney injury, the eGFR may not accurately reflect actual GFR. Performed By: #### 2 4323-8 ####[facility] LABIA [id number] [place] [address] Glucose [Mass/Vol] 104 mg/dL High 74-99 [facility] Comment on above: Order Comment: Tam purvis Type: BLOOD SPECIMENOrdering Facility: [facility] Address: [address] [place] [address] Result Comment: The [place] Diabetes Association (ADA) provides guidance for cutoff values for fasting glucose and random glucose. The ADA defines fasting as no caloric intake for at least 8 hours. Fasting plasma glucose results between 100 to 125 mg/dL indicate increased risk for diabetes (prediabetes). Fasting plasma glucose results greater than or equal to 126 mg/dL meet the criteria for diagnosis of diabetes. In the absence of unequivocal hyperglycemia, results should be confirmed by repeat testing. In a patient with classic symptoms of hyperglycemia or hyperglycemic crisis, random plasma glucose results greater than or equal to 200 mg/dL meet the criteria for diagnosis of diabetes. Reference: Standards of Medical Care in Diabetes 2016, [place] [employer] Association. Diabetes Care. 2016.39(Suppl 1). Performed By: #### 2 4323-8 ####[facility] LABCLIA [id number] [place] [address] Potassium [Moles/Vol] 4.1 mmol/L Normal 3.7-5.1 [facility] Comment on above: Order Comment: Speci men Type: BLOOD SPECIMENOrdering Facility: [facility] Address: [address] [place] [address] Performed By: #### 2 4323-8 ####[facility] LABCLIA [id number] [place] [address] Protein [Mass/Vol] 6.9 g/dL Normal 6.3-8.0 [facility] Comment on above: Order Comment: Speci men Type: BLOOD SPECIMENOrdering Facility: [facility] Address: [address] [place] [address] Performed By: #### 2 4323-8 ####[facility] LABCLIA [id number] [place] [address] Sodium [Moles/Vol] 138 mmol/L Normal 136-144 [facility] Comment on above: Order Comment: Speci men Type: BLOOD SPECIMENOrdering Facility: [facility] Address: [address] [place] [address] Performed By: #### 2 4323-8 ####[facility] LABCLIA [id number] [place] [address] Urea nitrogen [Mass/Vol] 11 mg/dL Normal 7-21 [facility] Comment on above: Order Comment: Speci men Type: BLOOD SPECIMENOrdering Facility: [facility] Address: [address] [place] [address] Performed By: #### 2 4323-8 ####[facility] LABIA [id number] [place] [address] ESR Westergren method (Bld) [Velocity]on 01-17-2023 ESR (Bld) [Velocity] 12 mm/h Normal 0-20 [facility] Comment on above: Order Comment: Speci men Type: BLOOD SPECIMENOrdering Facility: [facility] Address: [address] [place], [place] [address], [place] [address] Performed By: #### 4 537-7 ####[facility] LABCLIA [id number] YESSENIACarol DIAS [id number] [id number] [place] Patient Correspondenceon Patient Correspondence [id number] .00TIFF Normal [facility] Workers' Comp Officeon 01-02 Workers' Comp Office [id number]#5 .00TIFF Normal [facility] CNPNon 11-08-2022 CNPN Telephone (DERMMN) SHELLY WILSON ([id number]) 1955 F Date Time Provider Department 11/08/22 YANNA BRASHER DERMNASH During your visit today, we recorded the following information about you: Hallie Stallings 11/08/2022 11:14 AM Signed Patient called in to let Dr. Brasher that the triamcinolone (KENALOG) 0.025 % ointment does not work. Patient wants to know if she can be prescribed something else. ketoconazole (NIZORAL) 2 % cream is working well for the patient. Yanna Brasher MD 11/10/2022 2:00 PM Signed Virtual visit for psoriasis please. Christina Pereira 11/11/2022 2:43 PM Signed Patient is scheduling a virtual visit with Dr. Brasher. Allergies As of Date: 11/08/2022 Noted Allergy Reaction CODEINE 06/27/2022 8 - GI Upset Date Reviewed: 09/25/2022 Reviewed by: Yasmin Abdul Ma - Fully Assessed Reason for Visit: Patient Question [6907] Prescriptions as of 11/11/2022 - ketoconazole (NIZORAL) 2 % cream APPLY TO AFFECTED AREA TWICE DAILY FOR SKIN FOLDS - methotrexate 2.5 mg tablet Take 6 tablets by mouth one time a week. - predniSONE (DELTASONE) 5 mg tablet Take 1 tablet by mouth once daily. - DULoxetine (CYMBALTA) 60 mg capsule 2 capsules Orally Once a day - triamcinolone (KENALOG) 0.025 % ointment Apply to affected area twice daily. For psoriasis - folic acid 1 mg tablet Take 1 tablet by mouth once daily. - oxybutynin (DITROPAN) 5 mg tablet Take 5 mg by mouth once daily. - losartan (COZAAR) 100 mg tablet Take 100 mg by mouth once daily. - celecoxib (CELEBREX) 100 mg capsule Take 100 mg by mouth once daily. - oxybutynin ER (DITROPAN XL) 10 mg 24 hr tablet Take 10 mg by mouth once daily. - tiZANidine HCl (ZANAFLEX) 4 mg capsule Take 8 mg by mouth three times daily as needed. - Docusate Sodium 100 mg tab Take by mouth. - HYDROcodone-acetamino phen (NORCO) 5-325 mg per tablet Take 1 tablet by mouth every 8 hours as needed for pain. prn Problem List As Of Date: 11/08/2022 (None) Encounter Status:Closed by HALLIE STALLINGS on 11/08/22 [facility] Wilian 10-28-2022 TRACYN Telephone (DARNELL) SHELLY WILSON ([id number]) 1955 F Date Time Provider Department 10/28/22 JOHN LIZ During your visit today, we recorded the following information about you: YasmineNoa 10/28/2022 3:39 PM Signed Last time patient was in the office, there was concern about her bruising. She was told to get blood work done by her PCP and was given some medication to help it. She said it was called Omnicef and it was 600 mg for 10 days. When she picked up her her Celebrex, she was told that Celebrex along with Prednisone and Cymbalta can cause bruising. Patient also wanted to update that her WBC went from 21 to 16. Lucinda Coates RN 10/29/2022 11:55 AM Addendum I tried to call Shelly today to discuss, left her a VM to give us a call back. ROSE Mixon Jeanette, RN 10/29/2022 1:38 PM Signed Patient called back and I spoke with her. She stopped taking the Celebrex last week, (still taking Prednisone and Cymbalta). Bruising is significantly improving since she's been off the Celebrex. Feet are starting to swell again since she's changed the Prednisone dose to 5 mg/day alternating 10/day. Will forward to provider. John Liz MD 10/29/2022 1:49 PM Signed She can try going back tp prednisone 10 mg/d. Glad her bruising is better. MTX higher dose may take longer to wpork MD Aminata Sandoval Jeanette, RN 10/29/2022 2:14 PM Signed I called her back and gave her the information. She verbalized understanding and will try going back to 10 mg/day Prednisone. Allergies As of Date: 10/28/2022 Noted Allergy Reaction CODEINE 06/27/2022 8 - GI Upset Date Reviewed: 09/25/2022 Reviewed by: Yasmin Abdul Ma - Fully Assessed Reason for Visit: Patient Update [1234] Cmt: Bruising Prescriptions as of 10/29/2022 - methotrexate 2.5 mg tablet Take 6 tablets by mouth one time a week. - predniSONE (DELTASONE) 5 mg tablet Take 1 tablet by mouth once daily. - DULoxetine (CYMBALTA) 60 mg capsule 2 capsules Orally Once a day - ketoconazole (NIZORAL) 2 % cream Apply to affected area twice daily. For skin folds - triamcinolone (KENALOG) 0.025 % ointment Apply to affected area twice daily. For psoriasis - folic acid 1 mg tablet Take 1 tablet by mouth once daily. - oxybutynin (DITROPAN) 5 mg tablet Take 5 mg by mouth once daily. - losartan (COZAAR) 100 mg tablet Take 100 mg by mouth once daily. - celecoxib (CELEBREX) 100 mg capsule Take 100 mg by mouth once daily. - oxybutynin ER (DITROPAN XL) 10 mg 24 hr tablet Take 10 mg by mouth once daily. - tiZANidine HCl (ZANAFLEX) 4 mg capsule Take 8 mg by mouth three times daily as needed. - Docusate Sodium 100 mg tab Take by mouth. - HYDROcodone-acetamino phen (NORCO) 5-325 mg per tablet Take 1 tablet by mouth every 8 hours as needed for pain. prn Problem List As Of Date: 10/28/2022 (None) Encounter Status:Closed by LUCINDA COAETS on 10/29/22 [facility] SHELLY WIL[facility] ([id number]) 1955 F Date Time Provider Department 10/01/22 JOHN LIZ During your visit today, we recorded the following information about you: Liana Lynn 10/01/2022 4:14 PM Signed Pt called to let dr. Liz know since she changed how she takes her medications her feet and ankles are swelling Please call pt [phone] John Liz MD 10/02/2022 10:53 AM Signed Is she talking about steroid taper? Is she on 5 mg/d? She can try 5 mg and 10 mg every other day alternating. Higher dose of MTX will take few weeks to kick in. MD Kulwant Sandoval Sarah 10/02/2022 1:24 PM Signed Lmtcb Karyn Koenig 10/02/2022 1:57 PM Signed Left message to call office. Karyn Koenig 10/02/2022 3:26 PM Signed Spoke with patient via phone. She is going to try 5 mg and 10 mg every other day alternating. I did tell her that the higher dose of MTX will take few weeks to kick in. She verbalizes understanding. She will call us back if there is no improvement. Allergies As of Date: 10/01/2022 Noted Allergy Reaction CODEINE 06/27/2022 8 - GI Upset Date Reviewed: 09/25/2022 Reviewed by: Yasmin Abdul Ma - Fully Assessed Reason for Visit: Medication Problem [65] Prescriptions as of 10/02/2022 - methotrexate 2.5 mg tablet Take 6 tablets by mouth one time a week. - predniSONE (DELTASONE) 5 mg tablet Take 1 tablet by mouth once daily. - DULoxetine (CYMBALTA) 60 mg capsule 2 capsules Orally Once a day - ketoconazole (NIZORAL) 2 % cream Apply to affected area twice daily. For skin folds - triamcinolone (KENALOG) 0.025 % ointment Apply to affected area twice daily. For psoriasis - folic acid 1 mg tablet Take 1 tablet by mouth once daily. - oxybutynin (DITROPAN) 5 mg tablet Take 5 mg by mouth once daily. - losartan (COZAAR) 100 mg tablet Take 100 mg by mouth once daily. - celecoxib (CELEBREX) 100 mg capsule Take 100 mg by mouth once daily. - oxybutynin ER (DITROPAN XL) 10 mg 24 hr tablet Take 10 mg by mouth once daily. - tiZANidine HCl (ZANAFLEX) 4 mg capsule Take 8 mg by mouth three times daily as needed. - Docusate Sodium 100 mg tab Take by mouth. - HYDROcodone-acetamino phen (NORCO) 5-325 mg per tablet Take 1 tablet by mouth every 8 hours as needed for pain. prn Problem List As Of Date: 10/01/2022 (None) Encounter Status:Closed by KARYN KOENIG on 10/02/22 Normal [facility] CBC W Auto Differential pane l (Bld)on 09-25-2022 Basophils (Bld) [#/Vol] 0.08 10*3/uL <0.11 k/uL [facility] Basophils/100 WBC (Bld) 0.4 % [facility] Differential cell count method Nom (Bld) Auto [facility] Eosinophils (Bld) [#/Vol] <0.46 k/uL [facility] Eosinophils/100 WBC (Bld) 0.1 % [facility] Erythrocyte distribution width (RBC) [Ratio] 14.6 % 11.5 - 15.0 % [facility] Hematocrit (Bld) [Volume fraction] 46.6 % High 36.0 - 46.0 % [facility] Hemoglobin (Bld) [Mass/Vol] 15.4 g/dL 11.5 - 15.5 g/dL [facility] Immature granulocytes (Bld) [#/Vol] 0.23 10*3/uL High <0.10 k/uL [facility] Immature granulocytes/100 WBC (Bld) 1.2 % [facility] Lymphocytes (Bld) [#/Vol] 1.81 10*3/uL 1.00 - 4.00 k/uL [facility] Lymphocytes/100 WBC (Bld) 9.3 % [facility] MCH (RBC) [Entitic mass] 30.8 pg 26.0 - 34.0 pg [facility] MCHC (RBC) [Mass/Vol] 33.0 g/dL 30.5 - 36.0 g/dL [facility] MCV (RBC) [Entitic vol] 93.2 fL 80.0 - 100.0 fL [facility] Monocytes (Bld) [#/Vol] 1.05 10*3/uL High <0.87 k/uL [facility] Monocytes/100 WBC (Bld) 5.4 % [facility] Neutrophils (Bld) [#/Vol] 16.19 10*3/uL High 1.45 - 7.50 k/uL [facility] Neutrophils/100 WBC (Bld) 83.6 % [facility] Nucleated RBC (Bld) [#/Vol] <0.01 k/uL [facility] Nucleated RBC/100 WBC (Bld) [Ratio] 0.0 /100 WBC [facility] Platelet mean volume (Bld) [Entitic vol] 9.4 fL 9.0 - 12.7 fL [facility] Platelets (Bld) [#/Vol] 454 10*3/uL High 150 - 400 k/uL [facility] RBC (Bld) [#/Vol] 5.00 10*6/uL 3.90 - 5.2 0 m/uL [facility] WBC (Bld) [#/Vol] 19.38 10*3/uL High 3.70 - 11 .00 k/uL [facility] Basophils (Bld) [#/Vol] 0.08 10*3/uL Normal <0.11 [facility] Comment on above: Order Comment: Speci men Type: BLOOD SPECIMENOrdering Facility: [facility] Address: [address] [place] [address] Performed By: #### 5 7021-8, 4536-7 ####[facility] [id number] [place] [address] [place] Basophils/100 WBC (Bld) 0.4 % Normal [facility] Comment on above: Order Comment: Speci men Type: BLOOD SPECIMENOrdering Facility: [facility] Address: [address] [place] [address] Performed By: #### 5 7021-8, 7 ####[facility] [id number] [place] [address] [place] Differential cell count method Nom (Bld) Auto Normal [facility] Comment on above: Order Comment: Speci men Type: BLOOD SPECIMENOrdering Facility: [facility] Address: [address] [place] [address] Performed By: #### 5 7021-8, 4536-7 ####[facility] [id number] [place] [address] [place] Eosinophils (Bld) [#/Vol] 10*3/uL Normal <0.46 [facility] Comment on above: Order Comment: Speci men Type: BLOOD SPECIMENOrdering Facility: [facility] Address: [address] [place], [place] [address] Performed By: #### 5 7021-8, 4536-7 ####[facility] [id number] [place] [address] [place] Eosinophils/100 WBC (Bld) 0.1 % Normal [facility] Comment on above: Order Comment: Speci men Type: BLOOD SPECIMENOrdering Facility: [facility] Address: [address] [place] [address] Performed By: #### 5 7021-8, 4536-7 ####[facility] [id number] [place] [address] [place] Erythrocyte distribution width (RBC) [Ratio] 14.6 % Normal 11.5-15.0 [facility] Comment on above: Order Comment: Speci men Type: BLOOD SPECIMENOrdering Facility: [facility] Address: [address] [place] [address] Performed By: #### 5 7021-8, 4536-7 ####[facility] [id number] [place] [address] [place] Hematocrit (Bld) [Volume fraction] 46.6 % High 36.0-46.0 [facility] Comment on above: Order Comment: Speci men Type: BLOOD SPECIMENOrdering Facility: [facility] Address: [address] [place] [address] Performed By: #### 5 7021-8, 7 ####[facility] [id number] [place] [address] [place] Hemoglobin (Bld) [Mass/Vol] 15.4 g/dL Normal 11.5-15.5 [facility] Comment on above: Order Comment: Speci men Type: BLOOD SPECIMENOrdering Facility: [facility] Address: [address] [place], [place] [address] Performed By: #### 5 7021-8, 4536-7 ####[facility] [id number] [place] [address] [place] Immature granulocytes (Bld) [#/Vol] 0.23 10*3/uL High <0.10 [facility] Comment on above: Order Comment: Speci men Type: BLOOD SPECIMENOrdering Facility: [facility] Address: [address] [address] Performed By: #### 5 7021-8, 4536-7 ####[facility] [id number] [address] [place] [facility] Immature granulocytes/100 WBC (Bld) 1.2 % Normal [facility] Comment on above: Order Comment: Speci men Type: BLOOD SPECIMENOrdering Facility: [facility] Address: [address] [address] Performed By: #### 5 7021-8, 4536-7 ####[facility] [id number] [place] [address] [place] Lymphocytes (Bld) [#/Vol] 1.81 10*3/uL Normal 1.00-4.00 [facility] Comment on above: Order Comment: Speci men Type: BLOOD SPECIMENOrdering Facility: [facility] Address: [address] Performed By: #### 5 7021-8, 7 ####[facility] [id number] [address] [place] Lymphocytes/100 WBC (Bld) 9.3 % Normal [facility] Comment on above: Order Comment: Speci men Type: BLOOD SPECIMENOrdering Facility: [facility] Address: [address] Performed By: #### 5 7021-8, 4536-7 ####[facility] [id number] [place] [address] [place] MCH (RBC) [Entitic mass] 30.8 pg Normal 26.0-34.0 [facility] Comment on above: Order Comment: Speci men Type: BLOOD SPECIMENOrdering Facility: [facility] Address: [address] [place], [place] [address] Performed By: #### 5 7021-8, 7 ####[facility] [id number] [place] [address] [place] MCHC (RBC) [Mass/Vol] 33.0 g/dL Normal 30.5-36.0 [facility] Comment on above: Order Comment: Speci men Type: BLOOD SPECIMENOrdering Facility: [facility] Address: [address] [place] [address] Performed By: #### 5 7021-8, 4536-08 ####[facility] [id number] [place] [address] [place] MCV (RBC) [Entitic vol] 93.2 fL Normal 80.0-100.0 [facility] Comment on above: Order Comment: Speci men Type: BLOOD SPECIMENOrdering Facility: [facility] Address: [address] [place] [address] Performed By: #### 5 7021-8, 4536-08 ####[facility] [id number] [place] [address] [place] Monocytes (Bld) [#/Vol] 1.05 10*3/uL High <0.87 [facility] Comment on above: Order Comment: Speci men Type: BLOOD SPECIMENOrdering Facility: [facility] Address: [address] [place] [address] Performed By: #### 5 7021-8, 4536-08 ####[facility] [id number] [place] [address] [place] Monocytes/100 WBC (Bld) 5.4 % Normal [facility] Comment on above: Order Comment: Speci men Type: BLOOD SPECIMENOrdering Facility: [facility] Address: [address] [place], [place] [address] Performed By: #### 5 7021-8, 4536-08 ####[facility] [id number] [place] [address] [place] Neutrophils (Bld) [#/Vol] 16.19 10*3/uL High 1.45-7.50 [facility] Comment on above: Order Comment: Speci men Type: BLOOD SPECIMENOrdering Facility: [facility] Address: [address] [place] [address] Performed By: #### 5 7021-8, 4536-7 ####[facility] [id number] [place] [address] [place] Neutrophils/100 WBC (Bld) 83.6 % Normal [facility] Comment on above: Order Comment: Speci men Type: BLOOD SPECIMENOrdering Facility: [facility] Address: [address] [place] [address] Performed By: #### 5 7021-8, 4536-7 ####[facility] [id number] [place] [address] [place] Nucleated RBC (Bld) [#/Vol] 10*3/uL Normal <0.01 [facility] Comment on above: Order Comment: Speci men Type: BLOOD SPECIMENOrdering Facility: [facility] Address: [address] [place] [address] Performed By: #### 5 7021-8, 4536-7 ####[facility] [id number] [place] [address] [place] Nucleated RBC/100 WBC (Bld) [Ratio] 0.0 /100 WBC Normal [facility] Comment on above: Order Comment: Speci men Type: BLOOD SPECIMENOrdering Facility: [facility] Address: [address] [place], [place] [address] Performed By: #### 5 7021-8, 4536-7 ####[facility] [id number] [place] [address] [place] Platelet mean volume (Bld) [Entitic vol] 9.4 fL Normal 9.0-12.7 [facility] Comment on above: Order Comment: Speci men Type: BLOOD SPECIMENOrdering Facility: [facility] Address: [address] [place] [address] Performed By: #### 5 7021-8, 7-7 ####[facility] [id number] [place] [address] [place] Platelets (Bld) [#/Vol] 454 10*3/uL High 150-400 [facility] Comment on above: Order Comment: Speci men Type: BLOOD SPECIMENOrdering Facility: [facility] Address: [address] [place], [place] [address] Performed By: #### 5 7021-8, 4536-7 ####[facility] [id number] [place] [address] [place] RBC (Bld) [#/Vol] 5.00 10*6/uL Normal 3.90-5.20 [facility] Comment on above: Order Comment: Speci men Type: BLOOD SPECIMENOrdering Facility: [facility] Address: [address] [place], [place] [address] Performed By: #### 5 7021-8, 4536-7 ####[facility] [id number] [place] [address] [place] WBC (Bld) [#/Vol] 19.38 10*3/uL High 3.70-11.00 [facility] Comment on above: Order Comment: Speci men Type: BLOOD SPECIMENOrdering Facility: [facility] Address: [address] [place] [address] Performed By: #### 5 7021-8, 4536-7 ####[facility] [id number] [place] [id number] [place] CNOVon 09-25-2022 CNOV Office Visit ([facility] ) SHELLY WILSON ([id number]) 1955 F Date Time Provider Department 09/25/22 1:00 PM JOHN LIZ During your visit today, we recorded the following information about you: John Liz MD 09/25/2022 1:19 PM Signed 66 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 Unable to work Under stress because of that F/u RA Mild skin psoriasis Prednisone 10 mg/d MTX 4 tabs/week Folic acid Since MOR: 80% better with prednisone and low dose mtx Swelling is much better Has skin bruises Lots of fatigue Fingers lock Am stiffness less than 30 min No problems with mtx Saw derm-min psoriasis and intertrigo Component Latest Ref Rng AND Units 06/24/2022 08/06/2022 CCP Antibody IgG Qualitative Negative Strong Positive (A) CCP Antibody, IgG <20 Units 78 (H) WSR 0 - 20 mm/hr 21 (H) 18 CRP <0.9 mg/dL 0.5 Rheumatoid Factor <16 IU/mL <10 BABATUNDE Scr Qual Negative Negative CK 42 - 196 U/L 37 (L) Uric Acid 2.5 - 6.6 mg/dL 4.4 Lab 08/09 Hep panel 08/09 Cxr 08/09 Previous notes: 2 mo ago she developed left index finger followed by right wrist. She had XR showing osteoarthritis. Dr Miller her PCP from [facility] in [place] prescribed prednisone 40 mg/d x 5. Reduced the swelling. Then she had another attack in B hands and she was put on 60 mg/d of prednisone x 5 d and she is on the last day now. She is ok today She developed psoriasis in the past year. She is concerned about PsA Smoker 1 ppd x 40 years No FH of psoriasis and IA FH-pancreatic cancer, colon ca, CAD, DM Outside record- MRI LS and LS sp xr Left hand xr ok Cbc cmp tsh done Current Outpatient Medications Medication Sig predniSONE (DELTASONE) 10 mg tablet TAKE 1 TABLET BY MOUTH EVERY DAY DULoxetine (CYMBALTA) 60 mg capsule 2 capsules Orally Once a day ketoconazole (NIZORAL) 2 % cream Apply to affected area twice daily. For skin folds triamcinolone (KENALOG) 0.025 % ointment Apply to affected area twice daily. For psoriasis methotrexate 2.5 mg tablet Take 4 tablets by mouth one time a week. folic acid 1 mg tablet Take 1 tablet by mouth once daily. oxybutynin (DITROPAN) 5 mg tablet Take 5 mg by mouth once daily. losartan (COZAAR) 100 mg tablet Take 100 mg by mouth once daily. celecoxib (CELEBREX) 100 mg capsule Take 100 mg by mouth once daily. oxybutynin ER (DITROPAN XL) 10 mg 24 hr tablet Take 10 mg by mouth once daily. tiZANidine HCl (ZANAFLEX) 4 mg capsule Take 8 mg by mouth three times daily as needed. Docusate Sodium 100 mg tab Take by mouth. HYDROcodone-acetamino phen (NORCO) 5-325 mg per tablet Take 1 tablet by mouth every 8 hours as needed for pain. prn No current facility-administered medications for this visit. ALLERGIES Allergen Reactions Codeine GI Upset Answers submitted by the patient for this visit: Review of Systems Rheumatology (Submitted on 09/23/2022) Fever : No Recent Unintentional Weight Change: No Eye Pain: No Eye Redness: No Vision Disturbance: No Eye Dryness: No Nose Bleeds: No Sores in your Mouth: No Trouble Swallowing: No Dry Mouth: No Chest Pain: No Leg Swelling: No A Cough: No Shortness of Breath: No Pain with Breathing: No Heartburn: No Abdominal Pain: No Diarrhea: No Black Tarry Stools: No Blood in Urine: No Pain or Burning with Urination: No Joint Pain or Stiffness: Yes Muscle Weakness: Yes Muscle Aches: Yes Joint Swelling: No Morning Stiffness in Joints: Yes A Rash: No Skin Color Changes: No Hair Loss: No Nail Changes: No Headaches: No Numbness: Yes Memory Loss: No Swollen Glands: No RAPID 3: DISEASE ACTIVITY: RAPID-3 Weighed Score 06/23/2022 09/23/2022 RAPID 3 Weighed Score 4.61 (High Severity (HS)) 4.17 (High Severity (HS)) Weighed Score Levels: 0 - 1: Near Remission 1.3 - 2.0: Low Severity 2.3 - 4.0: Moderate Severity 4.3 - 10.0: High Severity PHYSICAL EXAMINATION: General appearance: cushingoid Skin: many bruises and excoriations Neck: supple, FROM Lungs: Lungs clear to auscultation. No wheezing, rhonchi, rales Heart: RRR without murmur, Abdomen: Abdomen soft, non-tender. Extremities: no edema Musculoskeletal: no synovitis Impression (M05.9) Seropositive rheumatoid arthritis (HCC) (primary encounter diagnosis) Comment: +CCP, neg RF Improved on mtx/prednisone Plan: CBC + DIFF, COMP METABOLIC PANEL, SED RATE WESTERGREN Labs Increase MTX to 6 tabs/week Decrease prednisone 5 mg/d and taper as tolerated Continue folic acid Refills (Z51.81) Medication monitoring encounter Comment: MTX Plan: CBC + DIFF, COMP METABOLIC PANEL, SED RATE WESTERGREN Rv 3 mo John Liz MD Referring Provider: JOHN LIZ [[id number]] Allergies As of Date: 09/25/2022 Noted Allergy Reaction CODEINE 06/27/2022 8 - GI Upset Date Reviewed: 09/25/2022 Reviewed by: Chantell Minaya (more content not included)... Normal [facility] Comprehensive metabolic 2000 panelon 09-25-2022 Albumin [Mass/Vol] 4.2 g/dL Normal 3.9-4.9 [facility] Comment on above: Order Comment: Speci yaniv Type: BLOOD SPECIMENOrdering Facility: [facility] Address: [address] [place] [address] Performed By: #### 2 4323-8 ####[facility] [id number] [place] [address] [place] ALP [Catalytic activity/Vol] 72 U/L Normal 34-123 [facility] Comment on above: Order Comment: Speci yaniv Type: BLOOD SPECIMENOrdering Facility: [facility] Address: [address] [place] [address] Performed By: #### 2 4323-8 ####[facility] [id number] [place] [address] [place] ALT [Catalytic activity/Vol] 28 U/L Normal 7-38 [facility] Comment on above: Order Comment: Speci men Type: BLOOD SPECIMENOrdering Facility: [facility] Address: [address] [place] [address] Performed By: #### 2 4323-8 ####[facility] [id number] [place] [address] [place] Anion gap [Moles/Vol] 12 mmol/L Normal 9-18 [facility] Comment on above: Order Comment: Speci men Type: BLOOD SPECIMENOrdering Facility: [facility] Address: [address] [place] [address] Performed By: #### 2 4323-8 ####[facility] [id number] [place] [address] [place] AST [Catalytic activity/Vol] 24 U/L Normal 13-35 [facility] Comment on above: Order Comment: Speci men Type: BLOOD SPECIMENOrdering Facility: [facility] Address: [address] [place] [address] Performed By: #### 2 4323-8 ####[facility] [id number] [place] [address] [place] Bilirubin [Mass/Vol] 0.4 mg/dL Normal 0.2-1.3 [facility] Comment on above: Order Comment: Speci men Type: BLOOD SPECIMENOrdering Facility: [facility] Address: [address] [place], [place] [address] Performed By: #### 2 4323-8 ####[facility] [id number] [place] [address] [place] Calcium [Mass/Vol] 9.9 mg/dL Normal 8.5-10.2 [facility] Comment on above: Order Comment: Speci men Type: BLOOD SPECIMENOrdering Facility: [facility] Address: [address] [address] Performed By: #### 2 4323-8 ####[facility] [id number] [place] [address] [place] Chloride [Moles/Vol] 102 mmol/L Normal 97-105 [facility] Comment on above: Order Comment: Speci men Type: BLOOD SPECIMENOrdering Facility: [facility] Address: [address] [place] [address] Performed By: #### 2 4323-8 ####[facility] [id number] [place] [address] [place] CO2 [Moles/Vol] 26 mmol/L Normal 22-30 [facility] Comment on above: Order Comment: Speci men Type: BLOOD SPECIMENOrdering Facility: [facility] Address: [address] [place] [address] Performed By: #### 2 4323-8 ####[facility] [id number] [place] [address] [place] Creatinine [Mass/Vol] 0.62 mg/dL Normal 0.58-0.96 [facility] Comment on above: Order Comment: Speci men Type: BLOOD SPECIMENOrdering Facility: [facility] Address: [address] [place] [address] Performed By: #### 2 4323-8 ####[facility] [id number] [place] [address] [place] ESTIMATED GLOMERULAR FILTRATION RATE 98 mL/min/1.73m??? Normal >=60 [facility] Comment on above: Order Comment: Speci men Type: BLOOD SPECIMENOrdering Facility: [facility] Address: [address] [place] [address] Result Comment: Carmen mated Glomerular Filtration Rate (eGFR) is calculated using the 2020 CKD-EPI creatinine equation. This equation utilizes serum creatinine, sex, and age as parameters. The creatinine assay has traceable calibration to isotope dilution-mass spectrometry. Refer to KDIGO guidelines for clinical interpretation. In patients with unstable renal function, e.g. those with acute kidney injury, the eGFR may not accurately reflect actual GFR. Performed By: #### 2 4323-8 ####[facility] [id number] [place] [address] [place] Glucose [Mass/Vol] 101 mg/dL High 74-99 [facility] Comment on above: Order Comment: Speci men Type: BLOOD SPECIMENOrdering Facility: [facility] Address: [address] [id number] Result Comment: The [place] Diabetes Association (ADA) provides guidance for cutoff values for fasting glucose and random glucose. The ADA defines fasting as no caloric intake for at least 8 hours. Fasting plasma glucose results between 100 to 125 mg/dL indicate increased risk for diabetes (prediabetes). Fasting plasma glucose results greater than or equal to 126 mg/dL meet the criteria for diagnosis of diabetes. In the absence of unequivocal hyperglycemia, results should be confirmed by repeat testing. In a patient with classic symptoms of hyperglycemia or hyperglycemic crisis, random plasma glucose results greater than or equal to 200 mg/dL meet the criteria for diagnosis of diabetes. Reference: Standards of Medical Care in Diabetes 2016, [place] [employer]. Diabetes Care. 2016.39(Suppl 1). Performed By: #### 2 4323-8 ####[facility] [id number] [place] [id number] [place] Potassium [Moles/Vol] 4.6 mmol/L Normal 3.7-5.1 [facility] Comment on above: Order Comment: Speci men Type: BLOOD SPECIMENOrdering Facility: [facility] Address: [address], [place] [id number] Performed By: #### 2 4323-8 ####[facility] LABCLIA [id number] [address] [address] [place] Protein [Mass/Vol] 6.8 g/dL Normal 6.3-8.0 [facility] Comment on above: Order Comment: Speci men Type: BLOOD SPECIMENOrdering Facility: [facility] Address: [address] [address] Performed By: #### 2 4323-8 ####[facility] LABIA [id number] [place] [address] [place] Sodium [Moles/Vol] 140 mmol/L Normal 136-144 [facility] Comment on above: Order Comment: Speci men Type: BLOOD SPECIMENOrdering Facility: [facility] Address: [address] [place] [address] Performed By: #### 2 4323-8 ####[facility] [id number] [address] [place] Urea nitrogen [Mass/Vol] 15 mg/dL Normal 7-21 [facility] Comment on above: Order Comment: Speci men Type: BLOOD SPECIMENOrdering Facility: [facility] Address: [address] [place] [address] Performed By: #### 2 4323-8 ####[facility] [id number] [place] [address] [place] ESR Westergren method (Bld) [Velocity]on 09-25-2022 ESR (Bld) [Velocity] 15 mm/h Normal 0-20 [facility] Comment on above: Order Comment: Speci men Type: BLOOD SPECIMENOrdering Facility: [facility] Address: [address] [place] [address] Performed By: #### 5 7021-8, 4537-7 ####[facility] [id number] [place] [address] [place] CBC W Auto Differential pane l (Bld)on 08-06-2022 Basophils (Bld) [#/Vol] 0.11 10*3/uL High <0.11 [facility] Comment on above: Order Comment: Speci men Type: BLOOD SPECIMENOrdering Facility: [facility] Address: [address] [address] Performed By: #### 5 7021-8 ####[facility] LABCLIA [id number] [place] [address] Basophils/100 WBC (Bld) 0.6 % Normal [facility] Comment on above: Order Comment: Speci men Type: BLOOD SPECIMENOrdering Facility: [facility] Address: [address] [place] [address] Performed By: #### 5 7021-8 ####[facility] LABCLIA [id number] [place] [address] Differential cell count method Nom (Bld) Auto Normal [facility] Comment on above: Order Comment: Speci men Type: BLOOD SPECIMENOrdering Facility: [facility] Address: [address] [place] [address] Performed By: #### 5 7021-8 ####[facility] LABCLIA [id number] [place] [address] Eosinophils (Bld) [#/Vol] 0.09 10*3/uL Normal <0.46 [facility] Comment on above: Order Comment: Speci men Type: BLOOD SPECIMENOrdering Facility: [facility] Address: [address] [place] [address] Performed By: #### 5 7021-8 ####[facility] LABCLIA [id number] [place] [address] Eosinophils/100 WBC (Bld) 0.5 % Normal [facility] Comment on above: Order Comment: Speci men Type: BLOOD SPECIMENOrdering Facility: [facility] Address: [address] [place] [address] Performed By: #### 5 7021-8 ####[facility] LABCLIA [id number] [place] [address] Erythrocyte distribution width (RBC) [Ratio] 13.5 % Normal 11.5-15.0 [facility] Comment on above: Order Comment: Speci men Type: BLOOD SPECIMENOrdering Facility: [facility] Address: [address] [address] Performed By: #### 5 7021-8 ####[facility] LABCLIA [id number] [place] [address] Hematocrit (Bld) [Volume fraction] 43.1 % Normal 36.0-46.0 [facility] Comment on above: Order Comment: Speci men Type: BLOOD SPECIMENOrdering Facility: [facility] Address: [address] [address] Performed By: #### 5 7021-8 ####[facility] LABCLIA [id number] [place] [address] Hemoglobin (Bld) [Mass/Vol] 14.2 g/dL Normal 11.5-15.5 [facility] Comment on above: Order Comment: Speci men Type: BLOOD SPECIMENOrdering Facility: [facility] Address: [address] [address] Performed By: #### 5 7021-8 ####[facility] LABCLIA [id number] [place] [address] Immature granulocytes (Bld) [#/Vol] 0.20 10*3/uL High <0.10 [facility] Comment on above: Order Comment: Speci men Type: BLOOD SPECIMENOrdering Facility: [facility] Address: [address] [address] Performed By: #### 5 7021-8 ####[facility] LABCLIA [id number] [place] [address] Immature granulocytes/100 WBC (Bld) 1.1 % Normal [facility] Comment on above: Order Comment: Speci men Type: BLOOD SPECIMENOrdering Facility: [facility] Address: [address] [address] Performed By: #### 5 7021-8 ####[facility] LABCLIA [id number] [place] [address] Lymphocytes (Bld) [#/Vol] 2.21 10*3/uL Normal 1.00-4.00 [facility] Comment on above: Order Comment: Speci men Type: BLOOD SPECIMENOrdering Facility: [facility] Address: [address] [place] [address] Performed By: #### 5 7021-8 ####[facility] LABCLIA [id number] [place] [address] Lymphocytes/100 WBC (Bld) 12.5 % Normal [facility] Comment on above: Order Comment: Speci men Type: BLOOD SPECIMENOrdering Facility: [facility] Address: [address] [place] [address] Performed By: #### 5 7021-8 ####[facility] LABCLIA [id number] [place] [address] MCH (RBC) [Entitic mass] 29.7 pg Normal 26.0-34.0 [facility] Comment on above: Order Comment: Speci men Type: BLOOD SPECIMENOrdering Facility: [facility] Address: [address] [place] [address] Performed By: #### 5 7021-8 ####[facility] LABCLIA [id number] [place] [address] MCHC (RBC) [Mass/Vol] 32.9 g/dL Normal 30.5-36.0 [facility] Comment on above: Order Comment: Speci men Type: BLOOD SPECIMENOrdering Facility: [facility] Address: [address] [place] [address] Performed By: #### 5 7021-8 ####[facility] LABCLIA [id number] [place] [address] MCV (RBC) [Entitic vol] 90.2 fL Normal 80.0-100.0 [facility] Comment on above: Order Comment: Speci men Type: BLOOD SPECIMENOrdering Facility: [facility] Address: [address] [address] Performed By: #### 5 7021-8 ####[facility] LABCLIA [id number] [place] [address] Monocytes (Bld) [#/Vol] 1.36 10*3/uL High <0.87 [facility] Comment on above: Order Comment: Speci men Type: BLOOD SPECIMENOrdering Facility: [facility] Address: [address] [place] [address] Performed By: #### 5 7021-8 ####[facility] LABCLIA [id number] [place] [address] Monocytes/100 WBC (Bld) 7.7 % Normal [facility] Comment on above: Order Comment: Speci men Type: BLOOD SPECIMENOrdering Facility: [facility] Address: [address] [address] Performed By: #### 5 7021-8 ####[facility] LABCLIA [id number] [place] [address] Neutrophils (Bld) [#/Vol] 13.72 10*3/uL High 1.45-7.50 [facility] Comment on above: Order Comment: Speci men Type: BLOOD SPECIMENOrdering Facility: [facility] Address: [address] [place] [address] Performed By: #### 5 7021-8 ####[facility] LABCLIA [id number] [place] [address] Neutrophils/100 WBC (Bld) 77.6 % Normal [facility] Comment on above: Order Comment: Speci men Type: BLOOD SPECIMENOrdering Facility: [facility] Address: [address] [place] [address] Performed By: #### 5 7021-8 ####[facility] LABCLIA [id number] [place] [address] Nucleated RBC (Bld) [#/Vol] 10*3/uL Normal <0.01 [facility] Comment on above: Order Comment: Speci men Type: BLOOD SPECIMENOrdering Facility: [facility] Address: [address] [place] [address] Performed By: #### 5 7021-8 ####[facility] LABCLIA [id number] [place] [address] Nucleated RBC/100 WBC (Bld) [Ratio] 0.0 /100 WBC Normal [facility] Comment on above: Order Comment: Speci men Type: BLOOD SPECIMENOrdering Facility: [facility] Address: [address] [place] [address] Performed By: #### 5 7021-8 ####[facility] LABIA [id number] [place] [address] Platelet mean volume (Bld) [Entitic vol] 8.3 fL Low 9.0-12.7 [facility] Comment on above: Order Comment: Speci men Type: BLOOD SPECIMENOrdering Facility: [facility] Address: [address] [place] [address] Performed By: #### 5 7021-8 ####[facility] LABIA [id number] [place] [address] Platelets (Bld) [#/Vol] 431 10*3/uL High 150-400 [facility] Comment on above: Order Comment: Speci men Type: BLOOD SPECIMENOrdering Facility: [facility] Address: [address] [place] [address] Performed By: #### 5 7021-8 ####[facility] LABIA [id number] [place] [address] RBC (Bld) [#/Vol] 4.78 10*6/uL Normal 3.90-5.20 [facility] Comment on above: Order Comment: Speci men Type: BLOOD SPECIMENOrdering Facility: [facility] Address: [address] [place] [address] Performed By: #### 5 7021-8 ####[facility] LABCLIA [id number] [place] [address] WBC (Bld) [#/Vol] 17.69 10*3/uL High 3.70-11.00 [facility] Comment on above: Order Comment: Speci men Type: BLOOD SPECIMENOrdering Facility: [facility] Address: [address] [place] [address] Performed By: #### 5 7021-8 ####[facility] LABCLIA [id number] [place] [address] Comprehensive metabolic 2000 panelon 08-06-2022 Albumin [Mass/Vol] 4.0 g/dL Normal 3.9-4.9 [facility] Comment on above: Order Comment: Speci men Type: BLOOD SPECIMENOrdering Facility: [facility] Address: [address] [place] [address] Performed By: #### 2 4323-8 ####[facility] LABCLIA [id number] [place] [address] ALP [Catalytic activity/Vol] 68 U/L Normal 34-123 [facility] Comment on above: Order Comment: Speci men Type: BLOOD SPECIMENOrdering Facility: [facility] Address: [address] [place] [address] Performed By: #### 2 4323-8 ####[facility] LABCLIA [id number] [place] [address] ALT [Catalytic activity/Vol] 16 U/L Normal 7-38 [facility] Comment on above: Order Comment: Speci men Type: BLOOD SPECIMENOrdering Facility: [facility] Address: [address] [place] [address] Performed By: #### 2 4323-8 ####[facility] LABCLIA [id number] [place] [address] Anion gap [Moles/Vol] 7 mmol/L Low 9-18 [facility] Comment on above: Order Comment: Speci men Type: BLOOD SPECIMENOrdering Facility: [facility] Address: [address] [place] [address] Performed By: #### 2 4323-8 ####[facility] LABCLIA [id number] [place] [address] AST [Catalytic activity/Vol] 16 U/L Normal 13-35 [facility] Comment on above: Order Comment: Speci men Type: BLOOD SPECIMENOrdering Facility: [facility] Address: [address] [place] [address] Performed By: #### 2 4323-8 ####[facility] LABCLIA [id number] [place] [address] Bilirubin [Mass/Vol] 0.4 mg/dL Normal 0.2-1.3 [facility] Comment on above: Order Comment: Speci men Type: BLOOD SPECIMENOrdering Facility: [facility] Address: [address] [place] [address] Performed By: #### 2 4323-8 ####[facility] LABCLIA [id number] [place] [address] Calcium [Mass/Vol] 9.8 mg/dL Normal 8.5-10.2 [facility] Comment on above: Order Comment: Speci men Type: BLOOD SPECIMENOrdering Facility: [facility] Address: [address] [place] [address] Performed By: #### 2 4323-8 ####[facility] LABCLIA [id number] [place] [address] Chloride [Moles/Vol] 102 mmol/L Normal 97-105 [facility] Comment on above: Order Comment: Speci men Type: BLOOD SPECIMENOrdering Facility: [facility] Address: [address] [address] Performed By: #### 2 4323-8 ####[facility] LABCLIA [id number] [place] [address] CO2 [Moles/Vol] 28 mmol/L Normal 22-30 [facility] Comment on above: Order Comment: Speci men Type: BLOOD SPECIMENOrdering Facility: [facility] Address: [address] [place] [address] Performed By: #### 2 4323-8 ####[facility] LABCLIA [id number] [place] [address] Creatinine [Mass/Vol] 0.66 mg/dL Normal 0.58-0.96 [facility] Comment on above: Order Comment: Speci men Type: BLOOD SPECIMENOrdering Facility: [facility] Address: [address] [place] [address] Performed By: #### 2 4323-8 ####[facility] LABCLIA [id number] [place] [address] ESTIMATED GLOMERULAR FILTRATION RATE 97 mL/min/1.73m??? Normal >=60 [facility] Comment on above: Order Comment: Speci men Type: BLOOD SPECIMENOrdering Facility: [facility] Address: [address] [place] [address] Result Comment: Carmen mated Glomerular Filtration Rate (eGFR) is calculated using the 2020 CKD-EPI creatinine equation. This equation utilizes serum creatinine, sex, and age as parameters. The creatinine assay has traceable calibration to isotope dilution-mass spectrometry. Refer to KDIGO guidelines for clinical interpretation. In patients with unstable renal function, e.g. those with acute kidney injury, the eGFR may not accurately reflect actual GFR. Performed By: #### 2 4323-8 ####[facility] LABCLIA [id number] [place] [address] Glucose [Mass/Vol] 118 mg/dL High 74-99 [facility] Comment on above: Order Comment: Speci men Type: BLOOD SPECIMENOrdering Facility: [facility] Address: [address] [address] Result Comment: The [place] Diabetes Association (ADA) provides guidance for cutoff values for fasting glucose and random glucose. The ADA defines fasting as no caloric intake for at least 8 hours. Fasting plasma glucose results between 100 to 125 mg/dL indicate increased risk for diabetes (prediabetes). Fasting plasma glucose results greater than or equal to 126 mg/dL meet the criteria for diagnosis of diabetes. In the absence of unequivocal hyperglycemia, results should be confirmed by repeat testing. In a patient with classic symptoms of hyperglycemia or hyperglycemic crisis, random plasma glucose results greater than or equal to 200 mg/dL meet the criteria for diagnosis of diabetes. Reference: Standards of Medical Care in Diabetes 2016, [place] [employer] Association. Diabetes Care. 2016.39(Suppl 1). Performed By: #### 2 4323-8 ####[facility] LABCLIA [id number] [place] [address] Potassium [Moles/Vol] 4.3 mmol/L Normal 3.7-5.1 [facility] Comment on above: Order Comment: Speci [facility] Type: BLOOD SPECIMENOrdering Facility: [facility] Address: [address] [place] [address] Performed By: #### 2 4323-8 ####[facility] LABCLIA [id number] [place] [address] Protein [Mass/Vol] 6.6 g/dL Normal 6.3-8.0 [facility] Comment on above: Order Comment: Speci men Type: BLOOD SPECIMENOrdering Facility: [facility] Address: [address] [address] Performed By: #### 2 4323-8 ####[facility] LABCLIA [id number] [place] [address] Sodium [Moles/Vol] 137 mmol/L Normal 136-144 [facility] Comment on above: Order Comment: Speci men Type: BLOOD SPECIMENOrdering Facility: [facility] Address: [address] [place], [place] [address] Performed By: #### 2 4323-8 ####[facility] LABCLIA [id number] [place] [address] Urea nitrogen [Mass/Vol] 16 mg/dL Normal 7-21 [facility] Comment on above: Order Comment: Speci men Type: BLOOD SPECIMENOrdering Facility: [facility] Address: [address] [place] [address] Performed By: #### 2 4323-8 ####[facility] LABCLIA [id number] [place] [address] ESR Westergren method (Bld) [Velocity]on 08-06-2022 ESR (Bld) [Velocity] 18 mm/h Normal 0-20 [facility] Comment on above: Order Comment: Speci men Type: BLOOD SPECIMENOrdering Facility: [facility] Address: [address] [place] [address] Performed By: #### 4 537-7 ####[facility] LABIA [id number] [place] [address] [place] HBV core Ab Ser Qlon 023 HBV core Ab Ql (S) Negative Normal Negative [facility] Comment on above: Order Comment: Speci men Type: BLOOD SPECIMENOrdering Facility: [facility] Address: [address] [place] [address] Result Comment: No e vidence of current or past infection with Hepatitis B virus. Should recent infection be suspected, repeat testing may be considered 3-4 weeks after this draw. Performed By: #### 1 6933-4, 5195-3, 51984-6 ####[facility] LABIA [id number] [place] [address] [place] HBV surface Ab Ql (S)on 07-19 HBV surface Ab Qn (S) <8.00 Low >=12.00 [facility] Comment on above: Order Comment: Speci men Type: BLOOD SPECIMENOrdering Facility: [facility] Address: [address] [place] [address] Performed By: #### 1 6933-4, 5194-3, 33151-5 ####[facility] LABCLIA [id number] [address] HBV surface Ab Ser Qlon 07-19 HBV surface Ab Ql (S) Negative Abnormal Positive [facility] Comment on above: Order Comment: Speci men Type: BLOOD SPECIMENOrdering Facility: [facility] Address: [address] [place] [address] Result Comment: No e vidence of antibodies to Hepatitis B surface antigen. Performed By: #### 1 6933-4, 5194-3, 27598-8 ####[facility] LABCLIA [id number] [address] HBV surface Ag Ser Qlon 07-19 HBV surface Ag Ql (S) Negative Normal Negative [facility] Comment on above: Order Comment: Speci men Type: BLOOD SPECIMENOrdering Facility: [facility] Address: [address] [place] [address] Performed By: #### 1 6933-4, 3, ####[facility] LABCLIA [id number] [address] HCV Ab Ser Qlon 08-06-2022 HCV Ab Ql (S) Negative Normal Negative [facility] Comment on above: Order Comment: Speci men Type: BLOOD SPECIMENOrdering Facility: [facility] Address: [address] [place] [address] Result Comment: The result suggests no evidence of active infection with Hepatitis C virus. Should recent infection be suspected, repeat testing may be considered 4-6 weeks after this draw. Performed By: #### 1 6128-1 ####[facility] LABCLIA [id number] [address] Workers' Comp Officeon 07-26 Workers' Comp Office [phone] [id number]# 1.00CD:[address] [facility] CNOVon 06-27-2022 CNOV Office Visit (DERMMN ) SHELLY WILSON ([id number]) 1955 F Date Time Provider Department 06/27/22 10:45 AM YANNA BRASHER DERMMN During your visit today, we recorded the following information about you: Yanna Brasher MD 06/27/2022 9:37 PM Signed New patient Consultation requested by Dr. Liz for an opinion regarding psoriasis. My final recommendations will be communicated back to the requesting physician by way of shared Medical record or letter to requesting physician via US mail. CC: rash HPI: Shelly Андрейnicolette 66 year old female here for rash. She had irritation under the breasts and had a biopsy and used a cream that made the skin raw and she stopped. No memory of the name or diagnosis. She uses A and D ointment. She now has round scaly spots on the arms and thighs and buttocks. Modest level of itch. She was just diagnosed with RA on Friday by Dr. Liz. She was given MTX 10mg and prednisone. 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 celecoxib (CELEBREX) 100 mg capsule Take 100 mg by mouth once daily. methotrexate 2.5 mg tablet Take 4 tablets by mouth one time a week. folic acid 1 mg tablet Take 1 tablet by mouth once daily. predniSONE (DELTASONE) 10 mg tablet Take 1 tablet by mouth once daily. losartan (COZAAR) 100 mg tablet Take 100 mg by mouth once daily. oxybutynin ER (DITROPAN XL) 10 mg 24 hr tablet Take 10 mg by mouth once daily. tiZANidine HCl (ZANAFLEX) 4 mg capsule Take 8 mg by mouth three times daily as needed. Docusate Sodium 100 mg tab Take by mouth. HYDROcodone-acetamino phen (NORCO) 5-325 mg per tablet Take 1 tablet by mouth every 8 hours as needed for pain. prn PE: Gen: Well appearing female in NAD Neuro: Alert, pleasant, cooperative Tae skin type: II Examination of scalp, face, neck, chest, abdomen, back, bilateral upper and lower extremities including nails was significant for: -waxy forbes stuck on papules on the chest - blanching red papule on the chest Right hip with a well defined red plaque, gluteal cleft with a well defined red plaque Inframammary folds and abdominal fold with red plaques Normal nails Component Latest Ref Rng AND Units 06/24/2022 WBC 3.70 - 11.00 k/uL 21.36 (H) RBC 3.90 - 5.20 m/uL 4.69 Hemoglobin 11.5 - 15.5 g/dL 14.5 Hematocrit 36.0 - 46.0 % 42.2 MCV 80.0 - 100.0 fL 90.0 MCH 26.0 - 34.0 pg 30.9 MCHC 30.5 - 36.0 g/dL 34.4 RDW-CV 11.5 - 15.0 % 12.4 Platelet Count 150 - 400 k/uL 465 (H) MPV 9.0 - 12.7 fL 8.6 (L) NRBC /100 WBC 0.0 Absolute nRBC <0.01 k/uL <0.01 Neut% % 70.0 Abs Neut (ANC) 1.45 - 7.50 k/uL 14.95 (H) Lymph% % 21.0 Abs Lymph 1.00 - 4.00 k/uL 4.49 (H) Obion% % 7.0 Abs Obion <0.87 k/uL 1.50 (H) Eosin% % 0.0 Abs Eosin <0.46 k/uL 0.00 Baso% % 1.0 Abs Baso <0.11 k/uL 0.21 (H) Myelo% % 1.0 Left Shift Present Platelet Estimate Increased Red Cell Morph Reviewed: unremarkable Polychromasia Slight DTYPE Manual Protein, Total 6.3 - 8.0 g/dL 6.8 Albumin 3.9 - 4.9 g/dL 4.0 Calcium 8.5 - 10.2 mg/dL 9.8 Bilirubin, Total 0.2 - 1.3 mg/dL 0.3 Alkaline Phosphatase 34 - 123 U/L 75 AST 13 - 35 U/L 15 ALT 7 - 38 U/L 21 Glucose 74 - 99 mg/dL 62 (L) BUN 7 - 21 mg/dL 17 Creatinine 0.58 - 0.96 mg/dL 0.71 Sodium 136 - 144 mmol/L 138 Potassium 3.7 - 5.1 mmol/L 4.2 Chloride 97 - 105 mmol/L 100 CO2 22 - 30 mmol/L 25 Anion Gap 9 - 18 mmol/L 13 eGFR >=60 mL/min/1.73mA? 94 Albumin 3.43 - 5.41 g/dL 3.51 Alpha 1 Globulin 0.18 - 0.43 g/dL 0.36 Alpha 2 Globulin 0.42 - 0.98 g/dL 1.04 (H) Beta Globulin 0.61 - 1.17 g/dL 0.88 Gamma Globulin 0.53 - 1.51 g/dL 0.71 Interpretation (Prot Electro) No definitive M protein is identified on protein electrophoresis. No definitive M protein is identified on protein electrophoresis. M-Protein Location M-Protein Concentration <=0.00 g/dL 0.00 SPE Staff Review Reviewed by Dr. Joshua Benitez MD CCP Antibody IgG Qualitative Negative Strong Positive (A) CCP Antibody, IgG <20 Units 78 (H) WSR 0 - 20 mm/hr 21 (H) CRP <0.9 mg/dL 0.5 Rheumatoid Factor <16 IU/mL <10 BABATUNDE by EIA, Qual Negative Negative CK 42 - 196 U/L 37 (L) A/P: Shelly Wilson is a 66 year old female with joint pain who was recently diagnosed with rheumatoid arthritis and started on prednisone and methotrexate. She has a few small, focal skin lesions consistent with psoriasis vulgaris, BSA 1% on the hip and gluteal cleft. I feel the rash in the folds under the breasts and abdominal pannus is more consistent with intertrigo associated with obesity. - start triamcinolone 0.025% cream BID - - start ketoconazole 2% to the skin folds (more content not included)... Normal [facility] Consultation Noteon 06-28-19 Consultation Note Chief complaint: Low back and leg pain History of present illness: This is a 66-year-old female here for a chief complaint of low back and leg pain. The patient rates the pain as a 4 out of 10 sitting but up to an 8-9 out of 10 with standing or walking. She reports the pain will start in the lower back and radiate down both legs to the feet. The right side is worse but both are bothersome. She denies new neurologic symptoms or issues with bladder or bowel control. She got the MRI we had ordered and is here to go over the results. The patient's past medical, surgical, and social history along with medications and allergies were reviewed. Review of systems was done on 10 systems Physical examination: General: Pleasant white female in no acute distress. Patient appears well-nourished. Vital signs stable Head exam: Head is normocephalic and external ears are normal Neck exam: No tenderness Cardiovascular exam: No signs of poor perfusion and no peripheral edema Respiratory exam: Breathing is unlabored and there is no wheezing present Abdomen exam: Abdomen soft and nondistended Back exam: No tenderness Musculoskeletal exam: Strength 5 out of 5. Muscle tone is normal. Positive straight leg raise bilaterally. Neurologic exam: Sensation intact. Reflexes diminished but symmetric. Psych exam: Affect is appropriate. Alert and oriented Skin exam: No lesions Assessment: The patient's diagnosis is lumbosacral stenosis at L5-S1. We reviewed the patient's imaging. Her x-ray and MRI were notable for multilevel degenerative disc disease and spondylosis but most significantly she has a disc herniation at L5-S1 resulting in neuroforaminal stenosis bilaterally Oswestry disability index score was 42% OARRS report was reviewed and was appropriate Plan: I addressed options with her. Her symptoms are in the distribution of the left and right L5 nerve roots which correlates with her MRI. We will proceed with a bilateral L5 transforaminal epidural steroid injection under fluoroscopy at her next visit since she has not benefited from therapy. She has also been evaluated by spine surgery for this previously and surgery was not recommended. We discussed the potential risks and benefits of this plan and the patient was in agreement to proceed. I will see the patient for follow-up 4 weeks after the procedure for repeat evaluation. 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 Please let her know that her labs show RA. Her best rx would be starting methotrexate. Does she want to do a quick virtual visit to discuss SE/risks and benefits. She can read about it as well and we can send her info to decide alternatively. The following side effects are possible immunosuppression and susceptibility to infection, low CBC counts, nausea, mouth sores, alopecia, liver toxicity, pulmonary toxicity, teratogenic potential and need for control, low risk of hematologic malignancy. Patient understands a need to regular blood tests monitoring (q 6 weeks initially and if stable q 3 mo). Patient understands that he or she needs to abstain form drinking alcohol while on MTX. She is off prednisone now. Are her hands swollen? MD Karyn Sandoval 06/26/2022 2:48 PM Signed Spoke with patient via phone. Explained results and methotrexate. Discussed possible SE/risks/benefits with patient. She agrees to try it. I will send her information in the mail. She said please send Rx to [facility] in [place], [place] on [address] [facility] [address]. She also notes that her hands are stiff and swollen again. She stopped prednisone Friday (she is out of pills) and the stiffness and swelling came back this morning. Also - she made an appointment to see Derm at [facility]. Her appointment is tomorrow 06/27. John Liz MD 06/26/2022 3:03 PM Signed I sent MTX 4 tabs/week and folic acid. I sent prednisone 10 mg/d to start as bridge therapy. Can she get labs in 6 weeks? If ok and sje tolerates mtx we may need to increase mtx after. Orders Placed This Encounter CBC + DIFF Standing Status: Future Standing Expiration Date: 06/27/2023 COMP METABOLIC PANEL Standing Status: Future Standing Expiration Date: 06/27/2023 SED RATE WESTERGREN Standing Status: Future Standing Expiration Date: 06/27/2023 Hepatitis Remote Panel Standing Status: Future Standing Expiration Date: 08/26/2022 methotrexate 2.5 mg tablet Sig: Take 4 tablets by mouth one time a week. Dispense: 20 tablet Refill: 2 folic acid 1 mg tablet Sig: Take 1 tablet by mouth once daily. Dispense: 90 tablet Refill: 3 predniSONE (DELTASONE) 10 mg tablet Sig: Take 1 tablet by mouth once daily. Dispense: 30 tablet Refill: 2 MD Karyn Sandoval 06/26/2022 3:36 PM Signed I spoke with the patient and explained the message below from Dr. Liz. She verbalizes understanding of all topics dicussed. Allergies As of Date: 06/26/2022 (Not on File) Date Reviewed: 06/24/2022 Reviewed by: Yasmin Abdul Ma - Fully Assessed Reason for Visit: Results [95] Primary Visit Diagnosis:Inflammator y arthritis [M19.90] Other Visit Diagnosis:Medication monitoring encounter [Z51.81] Order(s):methotrexate 2.5 mg tabletTake 4 tablets by mouth one time a week.Disp: 20 tabletRfl: 2 folic acid 1 mg tabletTake 1 tablet by mouth once daily.Disp: 90 tabletRfl: 3 predniSONE (DELTASONE) 10 mg tabletTake 1 tablet by mouth once daily.Disp: 30 tabletRfl: 2 CBC + DIFF [SQCBCDIF] Order #: [id number] FUTURE COMP METABOLIC PANEL [SQCMP] Order #: [id number] FUTURE SED RATE WESTERGREN [SQWSR] Order #: [id number] FUTURE HEP REMOTE PANEL BL [SQHREMOP] Order #: [id number] FUTURE Prescriptions as of 06/26/2022 - methotrexate 2.5 mg tablet Take 4 tablets by mouth one time a week. - folic acid 1 mg tablet Take 1 tablet by mouth once daily. - predniSONE (DELTASONE) 10 mg tablet Take 1 tablet by mouth once daily. - oxybutynin (DITROPAN) 5 mg tablet Take 5 mg by mouth three times daily. - losartan (COZAAR) 100 mg tablet Take 100 mg by mouth once daily. - celecoxib (CELEBREX) 100 mg capsule Take 100 mg by mouth twice daily. - oxybutynin ER (DITROPAN XL) 10 mg 24 hr tablet Take 10 mg by mouth once daily. - tiZANidine HCl (ZANAFLEX) 4 mg capsule Take 8 mg by mouth three times daily as needed. - Docusate Sodium 100 mg tab Take by mouth. - HYDROcodone-acetamino phen (NORCO) 5-325 mg per tablet Take 1 tablet by mouth every 8 hours as needed for pain. prn Problem List As Of Date: 06/26/2022 (None) Prescriptions ordered this encounter Disp Refills Start End METHOTREXATE SODIUM 2.5 MG TABLET 20 t* 2 06/26/2022 Route: ORAL Sig: Take 4 tablets by mouth one time a week. FOLIC ACID 1 MG TABLET 90 t* 3 06/26/2022 Route: ORAL Sig: Take 1 tablet by mouth once daily. PREDNISONE 10 MG TABLET 30 t* 2 06/26/2022 Route: ORAL Sig: Take 1 tablet by mouth once daily. Encounter Number: [id number] (more content not included)... Normal [facility] Consent for Treatmenton 06-17 Consent for Treatment [id number]# 1.00CD:127 Normal [facility] Office/Clinic Note-Physician on 06-26-2022 Office/Clinic Note-Physician [id number]#1 .00CD:127 Normal [facility] Patient Correspondenceon Patient Correspondence [id number]#1 .00CD:127 Normal [facility] Patient Correspondence [id number]#1 .00CD:127 Normal [facility] Patient History Officeon Patient History Office [id number]#1 .00CD:127 Normal [facility] ESR Westergren method (Bld) [Velocity]on 06-25-2022 ESR (Bld) [Velocity] 21 mm/h High 0 - 20 mm/hr [facility] CBC W Auto Differential pane l (Bld)on 06-24-2022 Basophils (Bld) [#/Vol] 0.21 10*3/uL High <0.11 [facility] Comment on above: Order Comment: Speci men Type: BLOOD SPECIMENOrdering Facility: [facility] Address: [address] [place] [address] Performed By: #### 4 537-7, 88765-5 ####[facility] [id number] [place] [address] [place] Basophils/100 WBC (Bld) 1.0 % Normal [facility] Comment on above: Order Comment: Speci men Type: BLOOD SPECIMENOrdering Facility: [facility] Address: [address] [place] [address] Performed By: #### 4 537-7, 16891-1 ####[facility] [id number] [place] [address] [place] Differential cell count method Nom (Bld) Manual Normal [facility] Comment on above: Order Comment: Speci men Type: BLOOD SPECIMENOrdering Facility: [facility] Address: [address] [place] [address] Performed By: #### 4 537-7, 12545-0 ####[facility] [id number] [place] [address] [place] Eosinophils (Bld) [#/Vol] 0.00 10*3/uL Normal <0.46 [facility] Comment on above: Order Comment: Speci men Type: BLOOD SPECIMENOrdering Facility: [facility] Address: [address] [address] Performed By: #### 4 537-7, 56977-2 ####[facility] [id number] [place] [address] [place] Eosinophils/100 WBC (Bld) 0.0 % Normal [facility] Comment on above: Order Comment: Speci men Type: BLOOD SPECIMENOrdering Facility: [facility] Address: [address] [address] Performed By: #### 4 537-7, 03820-1 ####[facility] [id number] [place] [address] [place] Erythrocyte distribution width (RBC) [Ratio] 12.4 % Normal 11.5-15.0 [facility] Comment on above: Order Comment: Speci men Type: BLOOD SPECIMENOrdering Facility: [facility] Address: [address] [place], [place] [address] Performed By: #### 4 537-7, 51932-4 ####[facility] [id number] [address] [place] Hematocrit (Bld) [Volume fraction] 42.2 % Normal 36.0-46.0 [facility] Comment on above: Order Comment: Speci men Type: BLOOD SPECIMENOrdering Facility: [facility] Address: [address] Performed By: #### 4 537-7, 00395-2 ####[facility] [id number] [place] [address] [place] Hemoglobin (Bld) [Mass/Vol] 14.5 g/dL Normal 11.5-15.5 [facility] Comment on above: Order Comment: Speci men Type: BLOOD SPECIMENOrdering Facility: [facility] Address: [address] [place] [address] Performed By: #### 4 537-7, 27736-5 ####[facility] [id number] [place] [address] [place] Lymphocytes (Bld) [#/Vol] 4.49 10*3/uL High 1.00-4.00 [facility] Comment on above: Order Comment: Speci men Type: BLOOD SPECIMENOrdering Facility: [facility] Address: [address] [place], [place] [address] Performed By: #### 4 537-7, 40352-3 ####[facility] [id number] [address] [place] Lymphocytes/100 WBC (Bld) 21.0 % Normal [facility] Comment on above: Order Comment: Speci men Type: BLOOD SPECIMENOrdering Facility: [facility] Address: [address] [place], [place] [address] Performed By: #### 4 537-7, 56775-4 ####[facility] [id number] [place] [address] [place] MCH (RBC) [Entitic mass] 30.9 pg Normal 26.0-34.0 [facility] Comment on above: Order Comment: Speci men Type: BLOOD SPECIMENOrdering Facility: [facility] Address: [address] [place], [place] [address] Performed By: #### 4 537-7, 87592-5 ####[facility] [id number] [place] [address] [place] MCHC (RBC) [Mass/Vol] 34.4 g/dL Normal 30.5-36.0 [facility] Comment on above: Order Comment: Speci men Type: BLOOD SPECIMENOrdering Facility: [facility] Address: [address] [place], [place] [address] Performed By: #### 4 537-7, 02324-8 ####[facility] [id number] [place] [address] [place] MCV (RBC) [Entitic vol] 90.0 fL Normal 80.0-100.0 [facility] Comment on above: Order Comment: Speci men Type: BLOOD SPECIMENOrdering Facility: [facility] Address: [address] [place] [address] Performed By: #### 4 537-7, 81188-5 ####[facility] [id number] [place] [address] [place] Monocytes (Bld) [#/Vol] 1.50 10*3/uL High <0.87 [facility] Comment on above: Order Comment: Speci men Type: BLOOD SPECIMENOrdering Facility: [facility] Address: [address] [place] [address] Performed By: #### 4 537-7, 84890-5 ####[facility] [id number] [place] [address] [place] Monocytes/100 WBC (Bld) 7.0 % Normal [facility] Comment on above: Order Comment: Speci men Type: BLOOD SPECIMENOrdering Facility: [facility] Address: [address] [place] [address] Performed By: #### 4 537-7, 51252-9 ####[facility] [id number] [place] [address] [place] MYELO% 1.0 % Normal [facility] Comment on above: Order Comment: Speci men Type: BLOOD SPECIMENOrdering Facility: [facility] Address: [address] [place], [place] [address] Performed By: #### 4 537-7, 63470-6 ####[facility] [id number] [place] [address] [place] Neutrophils (Bld) [#/Vol] 14.95 10*3/uL High 1.45-7.50 [facility] Comment on above: Order Comment: Speci men Type: BLOOD SPECIMENOrdering Facility: [facility] Address: [address] [place], [place] [address] Performed By: #### 4 537-7, 05488-6 ####[facility] [id number] [place] [address] [place] Neutrophils/100 WBC (Bld) 70.0 % Normal [facility] Comment on above: Order Comment: Speci men Type: BLOOD SPECIMENOrdering Facility: [facility] Address: [address] [place], [place] [address] Performed By: #### 4 537-7, 44246-3 ####[facility] [id number] [place] [address] [place] Nucleated RBC (Bld) [#/Vol] 10*3/uL Normal <0.01 [facility] Comment on above: Order Comment: Speci men Type: BLOOD SPECIMENOrdering Facility: [facility] Address: [address] [place], [place] [address] Performed By: #### 4 537-7, 64446-6 ####[facility] [id number] [place] [address] [place] Nucleated RBC/100 WBC (Bld) [Ratio] 0.0 /100 WBC Normal [facility] Comment on above: Order Comment: Speci men Type: BLOOD SPECIMENOrdering Facility: [facility] Address: [address] [place], [place] [address] Performed By: #### 4 537-7, 98674-6 ####[facility] [id number] [place] [address] [place] Platelet mean volume (Bld) [Entitic vol] 8.6 fL Low 9.0-12.7 [facility] Comment on above: Order Comment: Speci men Type: BLOOD SPECIMENOrdering Facility: [facility] Address: [address] [address] Performed By: #### 4 537-7, 16098-6 ####[facility] [id number] [place] [address] [place] Platelets (Bld) [#/Vol] 465 10*3/uL High 150-400 [facility] Comment on above: Order Comment: Speci men Type: BLOOD SPECIMENOrdering Facility: [facility] Address: [address] [place] [address] Performed By: #### 4 537-7, 51571-8 ####[facility] [id number] [place] [address] [place] Platelets Estimate (Bld) [#/Vol] Increased Normal [facility] Comment on above: Order Comment: Speci men Type: BLOOD SPECIMENOrdering Facility: [facility] Address: [address] [place], [place] [address] Performed By: #### 4 537-7, 37542-3 ####[facility] [id number] [place] [address] [place] Polychromasia LM Ql (Bld) Slight Normal [facility] Comment on above: Order Comment: Speci men Type: BLOOD SPECIMENOrdering Facility: [facility] Address: [address] [place], [place] [address] Performed By: #### 4 537-7, 50791-3 ####[facility] [id number] [place] [address] [place] RBC (Bld) [#/Vol] 4.69 10*6/uL Normal 3.90-5.20 [facility] Comment on above: Order Comment: Speci men Type: BLOOD SPECIMENOrdering Facility: [facility] Address: [address] [place], [place] [address] Performed By: #### 4 537-7, 34629-2 ####[facility] [id number] [place] [address] [place] RED CELL MORPH Reviewed: unremarkable Normal [facility] Comment on above: Order Comment: Speci men Type: BLOOD SPECIMENOrdering Facility: [facility] Address: [address] [place] [address] Performed By: #### 4 537-7, 99756-8 ####[facility] [id number] [place] [address] [place] WBC (Bld) [#/Vol] 21.36 10*3/uL High 3.70-11.00 [facility] Comment on above: Order Comment: Speci men Type: BLOOD SPECIMENOrdering Facility: [facility] Address: [address] [place] [address] Performed By: #### 4 537-7, 43365-8 ####[facility] [id number] [place] [address] [place] WBC Left Shift Ql (Bld) Present Normal [facility] Comment on above: Order Comment: Speci men Type: BLOOD SPECIMENOrdering Facility: [facility] Address: [address] [place] [address] Performed By: #### 4 537-7, 38644-7 ####[facility] [id number] [place] [address] [place] CK SerPl-cCncon 06-24-2022 CK [Catalytic activity/Vol] 37 U/L Low 42-196 [facility] Comment on above: Order Comment: Speci men Type: BLOOD SPECIMENOrdering Facility: [facility] Address: [address] [place] [address] Performed By: #### 2 4323-8, 88281-7, 3084-1, 2157-6 ####[facility] [id number] [address] [address] [place] CNOVon 06-24-2022 CNOV Office Visit (DARNELL ) SHELLY WILSON ([id number]) 1955 F Date Time Provider Department 06/24/22 2:00 PM JOHN LIZ During your visit today, we recorded the following information about you: Temperature Weight 98.5 degrees 93.4 kg John Liz MD 06/24/2022 2:50 PM Signed Rheumatology CONSULTATION Date of Service: 06/24/2022 Consultation requested by BOYD Bee for an opinion regarding hand swelling. 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 She had XR showing osteoarthritis. Dr Miller her PCP from [facility] in [place] prescribed prednisone 40 mg/d x 5. Reduced the swelling. Then she had another attack in B hands and she was put on 60 mg/d of prednisone x 5 d and she is on the last day now. She is ok today She developed psoriasis in the past year. She is concerned about PsA Smoker 1 ppd x 40 years No FH of psoriasis and IA FH-pancreatic cancer, colon ca, CAD, DM Outside record- MRI LS and LS sp xr Left hand xr ok Cbc cmp tsh done Patient reports No Raynauds, No photosensitivity, No oral sores, No sicca syndrome, No alopecia, No eye inflammation, Yes psoriasis, No inflammatory bowel disease PAST MEDICAL HISTORY Diagnosis Date Back pain Essential hypertension Psoriasis PAST SURGICAL HISTORY Procedure Laterality Date DANDC, DIAG AND/OR THERAPEUTIC REMOVAL GALLBLADDER TONSILLECTOMY AND ADENOIDECTOMY no appendectomy There is no problem list on file for this patient. SH Tobacco 1ppd x 40 yrs Nurse No family history on file. Current Outpatient Medications Medication Sig oxybutynin (DITROPAN) 5 mg tablet Take 5 mg by mouth three times daily. losartan (COZAAR) 100 mg tablet Take 100 mg by mouth once daily. celecoxib (CELEBREX) 100 mg capsule Take 100 mg by mouth twice daily. oxybutynin ER (DITROPAN XL) 10 mg 24 hr tablet Take 10 mg by mouth once daily. tiZANidine HCl (ZANAFLEX) 4 mg capsule Take 8 mg by mouth three times daily as needed. Docusate Sodium 100 mg tab Take by mouth. HYDROcodone-acetamino phen (NORCO) 5-325 mg per tablet Take 1 tablet by mouth every 8 hours as needed for pain. prn No current facility-administered medications for this visit. ALLERGIES Not on File Answers submitted by the patient for this visit: Review of Systems Rheumatology (Submitted on 06/23/2022) Fever : No Recent Unintentional Weight Change: No Eye Pain: No Eye Redness: No Vision Disturbance: No Eye Dryness: No Nose Bleeds: No Sores in your Mouth: No Trouble Swallowing: No Dry Mouth: No Chest Pain: No Leg Swelling: Yes A Cough: No Shortness of Breath: No Pain with Breathing: No Heartburn: No Abdominal Pain: No Diarrhea: No Black Tarry Stools: No Blood in Urine: No Pain or Burning with Urination: No Joint Pain or Stiffness: Yes Muscle Weakness: Yes Muscle Aches: Yes Joint Swelling: Yes Morning Stiffness in Joints: Yes A Rash: Yes Do you have sun sensitive rashes?: No Skin Color Changes: Yes Hair Loss: No Nail Changes: Yes Headaches: No Numbness: Yes Memory Loss: No Swollen Glands: No RAPID 3: DISEASE ACTIVITY: RAPID-3 Weighed Score 06/23/2022 RAPID 3 Weighed Score 4.61 (High Severity (HS)) Weighed Score Levels: 0 - 1: Near Remission 1.3 - 2.0: Low Severity 2.3 - 4.0: Moderate Severity 4.3 - 10.0: High Severity PHYSICAL EXAMINATION: Temp (Src) 98.5 (Left Tympanic) Wt 206 lb (93.4kg) General appearance: Well appearing, alert, in no acute distress Skin: few bruises and excoriations Neck: supple, FROM Back: mild pain to palpation in the LS spine midline. kyphoscoliosis Lungs: Lungs clear to auscultation. No wheezing, rhonchi, rales Heart: RRR without murmur, Abdomen: Abdomen soft, non-tender. No masses, organomegaly Extremities: no edema Musculoskeletal: no synovitis Neuro: Gait normal. Reflexes normal and symmetric. Sensation grossly intact. Impression (M79.89) Bilateral hand swelling (primary encounter diagnosis) Comment: assess for IA-RA, PsA, crystal disease Plan: XR HAND/WRIST SURVEY ARTHRITIS 1V PA BILATERAL, XR FOOT GENERAL 3V AP/LAT/OBL BILATERAL, XR CHEST 2V FRONTAL/LAT, SED RATE WESTERGREN, C-REACTIVE PROTEIN (CRP), RHEUMATOID FACTOR BL, CCP ANTIBODY IGG, BABATUNDE PANEL BLOOD SCRN, CBC + DIFF, COMP METABOLIC PANEL, CK CREATINE KINASE, URIC ACID BLOOD, SPEP Finishing prednisone today Will advise on further rx after labs and xr (L40.9) Psoriasis Comment: exam is not very c/w psoriasis as lesions present more on inverse areas Plan: CONSULT TO DERMATOLOGY Rv 3 (more content not included)... Normal [facility] CRP SerPl-mCncon 06-24-2022 CRP [Mass/Vol] 0.5 mg/dL Normal <0.9 [facility] Comment on above: Order Comment: Speci men Type: BLOOD SPECIMENOrdering Facility: [facility] Address: [address] [place] [address] Performed By: #### 1 988-5, 2885-2 ####[facility] [id number] [place] [address] [place] Comprehensive metabolic 2000 panelon 06-24-2022 Albumin [Mass/Vol] 4.0 g/dL Normal 3.9-4.9 [facility] Comment on above: Order Comment: Speci men Type: BLOOD SPECIMENOrdering Facility: [facility] Address: [address] [place] [address] Performed By: #### 2 4323-8, 31267-8, 3084-1, 2157-6 ####[facility] [id number] [place] [address] [place] ALP [Catalytic activity/Vol] 75 U/L Normal 34-123 [facility] Comment on above: Order Comment: Speci men Type: BLOOD SPECIMENOrdering Facility: [facility] Address: [address] [place] [address] Performed By: #### 2 4323-8, 03410-0, 3084-1, 2156-6 ####[facility] [id number] [address] [place] ALT [Catalytic activity/Vol] 21 U/L Normal 7-38 [facility] Comment on above: Order Comment: Speci men Type: BLOOD SPECIMENOrdering Facility: [facility] Address: [address] [place] [address] Performed By: #### 2 4323-8, 26971-8, 3084-1, 2156-07 ####[facility] [id number] [place] [address] [place] Anion gap [Moles/Vol] 13 mmol/L Normal 9-18 [facility] Comment on above: Order Comment: Speci men Type: BLOOD SPECIMENOrdering Facility: [facility] Address: [address] [place] [address] Performed By: #### 2 4323-8, 04954-1, 3084-1, 2156-07 ####[facility] [id number] [address] [place] AST [Catalytic activity/Vol] 15 U/L Normal 13-35 [facility] Comment on above: Order Comment: Speci men Type: BLOOD SPECIMENOrdering Facility: [facility] Address: [address] [place], [place] [address] Performed By: #### 2 4323-8, 49232-8, 3084-1, 2156-6 ####[facility] [id number] [place] [id number] [place] Bilirubin [Mass/Vol] 0.3 mg/dL Normal 0.2-1.3 [facility] Comment on above: Order Comment: Speci men Type: BLOOD SPECIMENOrdering Facility: [facility] Address: [address] [place] [address] Performed By: #### 2 4323-8, 28841-6, 3084-1, 2156-6 ####[facility] [id number] [place] [address] [place] Calcium [Mass/Vol] 9.8 mg/dL Normal 8.5-10.2 [facility] Comment on above: Order Comment: Speci men Type: BLOOD SPECIMENOrdering Facility: [facility] Address: [address] [place] [address] Performed By: #### 2 4323-8, 22765-6, 308-1, 2156-07 ####[facility] [id number] [place] [address] [place] Chloride [Moles/Vol] 100 mmol/L Normal 97-105 [facility] Comment on above: Order Comment: Speci men Type: BLOOD SPECIMENOrdering Facility: [facility] Address: [address] [place], [place] [address] Performed By: #### 2 4323-8, 99933-2, 308-1, 2156-07 ####[facility] [id number] [place] [address] [place] CO2 [Moles/Vol] 25 mmol/L Normal 22-30 [facility] Comment on above: Order Comment: Speci men Type: BLOOD SPECIMENOrdering Facility: [facility] Address: [address] [place], [place] [address] Performed By: #### 2 4323-8, 63775-6, 3084-1, 2156-6 ####[facility] [id number] OF [facility] Creatinine [Mass/Vol] 0.71 mg/dL Normal 0.58-0.96 [facility] Comment on above: Order Comment: Tam purvis Type: BLOOD SPECIMENOrdering Facility: [facility] Address: [address] [id number] Performed By: #### 2 4323-8, 77379-9, 3084-1, 2156-6 ####[facility] [id number] [address] ESTIMATED GLOMERULAR FILTRATION RATE 94 mL/min/1.73m??? Normal >=60 [facility] Comment on above: Order Comment: Tam purvis Type: BLOOD SPECIMENOrdering Facility: [facility] Address: [address] [address] Result Comment: Carmen mated Glomerular Filtration Rate (eGFR) is calculated using the 2020 CKD-EPI creatinine equation. This equation utilizes serum creatinine, sex, and age as parameters. The creatinine assay has traceable calibration to isotope dilution-mass spectrometry. Refer to KDIGO guidelines for clinical interpretation. In patients with unstable renal function, e.g. those with acute kidney injury, the eGFR may not accurately reflect actual GFR. Performed By: #### 2 4323-8, 58325-6, 3084-1, 6 ####[facility] [id number] [address] [place] Glucose [Mass/Vol] 62 mg/dL Low 74-99 [facility] Comment on above: Order Comment: Tam purvis Type: BLOOD SPECIMENOrdering Facility: [facility] Address: [address] [place] [address] Result Comment: The [place] Diabetes Association (ADA) provides guidance for cutoff values for fasting glucose and random glucose. The ADA defines fasting as no caloric intake for at least 8 hours. Fasting plasma glucose results between 100 to 125 mg/dL indicate increased risk for diabetes (prediabetes). Fasting plasma glucose results greater than or equal to 126 mg/dL meet the criteria for diagnosis of diabetes. In the absence of unequivocal hyperglycemia, results should be confirmed by repeat testing. In a patient with classic symptoms of hyperglycemia or hyperglycemic crisis, random plasma glucose results greater than or equal to 200 mg/dL meet the criteria for diagnosis of diabetes. Reference: Standards of Medical Care in Diabetes 2016, [place] [employer] Association. Diabetes Care. 2016.39(Suppl 1). Performed By: #### 2 4323-8, 31582-6, 3084-1, 2156-6 ####[facility] [id number] [place] [address] [place] Potassium [Moles/Vol] 4.2 mmol/L Normal 3.7-5.1 [facility] Comment on above: Order Comment: Tam purvis Type: BLOOD SPECIMENOrdering Facility: [facility] Address: [address] [place] [address] Performed By: #### 2 4323-8, 50959-2, 3083-, 2156-07 ####[facility] [id number] [place] [address] [place] Protein [Mass/Vol] 6.8 g/dL Normal 6.3-8.0 [facility] Comment on above: Order Comment: Tam purvis Type: BLOOD SPECIMENOrdering Facility: [facility] Address: [address] [place] [address] Performed By: #### 2 4323-8, 37639-0, 3083-, 2156-07 ####[facility] [id number] [place] [address] [place] Sodium [Moles/Vol] 138 mmol/L Normal 136-144 [facility] Comment on above: Order Comment: Tam purvis Type: BLOOD SPECIMENOrdering Facility: [facility] Address: [address] [place] [address] Performed By: #### 2 4323-8, 14809-8, 308-1, 2156-07 ####[facility] [id number] [place] [address] [place] Urea nitrogen [Mass/Vol] 17 mg/dL Normal 7-21 [facility] Comment on above: Order Comment: Speci men Type: BLOOD SPECIMENOrdering Facility: [facility] Address: [address] [place] [address] Performed By: #### 2 4323-8, 26047-8, 3084-1, 2157-6 ####[facility] [id number] [place] [address] [place] Cyclic citrullinated peptide IgG Qnon 06-24-2022 CCP ANTIBODY IGG QUALITATIVE Positive Abnormal Negative [facility] Comment on above: Order Comment: Speci men Type: BLOOD SPECIMENOrdering Facility: [facility] Address: [address] [place] [address] Performed By: #### 4 7383-5, 87960-5 ####[facility] [id number] [place] [address] [place] ESR Westergren method (Bld) [Velocity]on 06-24-2022 ESR (Bld) [Velocity] 21 mm/h High 0-20 [facility] Comment on above: Order Comment: Speci men Type: BLOOD SPECIMENOrdering Facility: [facility] Address: [address] [place] [address] Performed By: #### 4 537-7, 14920-8 ####[facility] [id number] [place] [address] [place] No Panel Informationon 06-24 [facility] Nuclear Ab IA Ql (S)on 06-24 BABATUNDE BY EIA, QUAL Negative Normal Negative [facility] Comment on above: Order Comment: Speci men Type: BLOOD SPECIMENOrdering Facility: [facility] Address: [address] [place] [address] Result Comment: The qualitative antinuclear antibody screen test performed using enzyme immunoassay including the following antigens: dsDNA, histones, SS-A, SS-B, Sm, Sm/ASSOCIATE PROFESSOR OF AUTOMATION, Scl-70, Elham-1, and centromeric antigens. Performed By: #### 4 7383-5, 52384-7 ####[facility] [id number] [place] [address] [place] PROTEIN ELECTROPHORESIS SERU M (P)on 06-24-2022 Albumin [Mass/Vol] 3.51 g/dL Normal 3.43-5.41 [facility] Comment on above: Order Comment: Speci men Type: BLOOD SPECIMENOrdering Facility: [facility] Address: [address] [place] [address] Performed By: #### L [id number] ####[facility] [id number] [place] [address] [place] Alpha 1 globulin Elph [Mass/Vol] 0.36 g/dL Normal 0.18-0.43 [facility] Comment on above: Order Comment: Speci men Type: BLOOD SPECIMENOrdering Facility: [facility] Address: [address] [address] Performed By: #### L [id number] ####[facility] [id number] [address] [place] Alpha 2 globulin Elph [Mass/Vol] 1.04 g/dL High 0.42-0.98 [facility] Comment on above: Order Comment: Speci men Type: BLOOD SPECIMENOrdering Facility: [facility] Address: [address] [place] [address] Performed By: #### L [id number] ####[facility] [id number] [place] [address] [place] Beta globulin Elph [Mass/Vol] 0.88 g/dL Normal 0.61-1.17 [facility] Comment on above: Order Comment: Speci men Type: BLOOD SPECIMENOrdering Facility: [facility] Address: [address] [place] [address] Performed By: #### L [id number] ####[facility] [id number] [address] Gamma globulin Elph [Mass/Vol] 0.71 g/dL Normal 0.53-1.51 [facility] Comment on above: Order Comment: Speci men Type: BLOOD SPECIMENOrdering Facility: [facility] Address: [address] [place] [address] Performed By: #### L [id number] ####[facility] [id number] [address] M-PROTEIN LOCATION Normal [facility] Comment on above: Order Comment: Speci men Type: BLOOD SPECIMENOrdering Facility: [facility] Address: [address] [place] [address] Result Comment: Not Applicable. Performed By: #### L [id number] ####[facility] [id number] [address] Protein Fractions [Interp] No definitive M protein is identified on protein electrophoresis. Normal No definitive M protein is identified on protein electrophoresi s. [facility] Comment on above: Order Comment: Speci men Type: BLOOD SPECIMENOrdering Facility: [facility] Address: [address] [place] [address] Performed By: #### L [id number] ####[facility] [id number] [address] Protein.monoclonal Elph [Mass/Vol] 0.00 g/dL Normal <=0.00 [facility] Comment on above: Order Comment: Speci men Type: BLOOD SPECIMENOrdering Facility: [facility] Address: [address] [place] [address] Performed By: #### L [id number] ####[facility] [id number] [address] OF [facility] SPE STAFF REVIEW Reviewed by Dr. Jacob Benitez MD [facility] Comment on above: Order Comment: Speci men Type: BLOOD SPECIMENOrdering Facility: [facility] Address: [address] [place] [address] Performed By: #### L [id number] ####[facility] [id number] [address] [place] Prot SerPl-mCncon 06-24-2022 Protein [Mass/Vol] 6.5 g/dL Normal 6.3-8.0 [facility] Comment on above: Order Comment: Speci men Type: BLOOD SPECIMENOrdering Facility: [facility] Address: [address] [place] [address] Performed By: #### 1 988-5, 2885-2 ####[facility] [id number] [address] Rheumatoid fact SerPl-aCncon 06-24-2022 Rheumatoid factor Qn [IU]/mL Normal <16 [facility] Comment on above: Order Comment: Speci men Type: BLOOD SPECIMENOrdering Facility: [facility] Address: [address] [place] [address] Performed By: #### 2 4323-8, 73462-3, 3084-1, 2156-6 ####[facility] [id number] [address] [place] Urate SerPl-mCncon Urate [Mass/Vol] 4.4 mg/dL Normal 2.5-6.6 [facility] Comment on above: Order Comment: Speci men Type: BLOOD SPECIMENOrdering Facility: [facility] Address: [address] [place], [place] [address] Performed By: #### 2 4323-8, 06301-8, 3084-1, 2156-6 ####[facility] [id number] [place] [id number] [address] [place] [facility] XR CHEST 2V FRONTAL/LATon XR CHEST 2V FRONTAL/LAT * * *Final Report* * * DATE OF EXAM: Jun 24 2022 3:26PM CCX 5291 - XR CHEST 2V FRONTAL/LAT / PROCEDURE REASON: Bilateral hand swelling * * * * Physician Interpretation * * * * EXAMINATION: CHEST RADIOGRAPH (2 VIEW FRONTAL and LATERAL) CLINICAL HISTORY: Bilateral hand swelling MQ: XC2_6 EXAM DATE/TIME: 06/24/2022 3:26 PM COMPARISON: No relevant prior studies available. RESULT: Lines, tubes, and devices: None. Lungs and pleura: No consolidation. No lung mass. No pleural effusion. No pneumothorax. Cardiomediastinal silhouette: Normal cardiomediastinal silhouette. Bones and soft tissues: Exaggerated thoracic kyphosis with degenerative changes. IMPRESSION: Independent Living Advisor: REAN Transcribe Date/Time: Jun 27 2022 2:09P Dictated by : LEE HIGGINS MD This examination was interpreted and the report reviewed and electronically signed by: LEE HIGGINS MD on Jun 27 2022 2:10PM EST [id number] N Normal [facility] XR FOOT 3V AP/LAT/OBL BILon 06-24-2022 XR FOOT 3V AP/LAT/OBL BENJAMIN * * *Final Report* * * DATE OF EXAM: Jun 24 2022 3:26PM CCX 5555 - XR FOOT 3V AP/LAT/OBL BENJAMIN / PROCEDURE REASON: Bilateral hand swelling * * * * Physician Interpretation * * * * HISTORY: Bilateral hand swelling . TECHNIQUE: XR FOOT 3V AP/LAT/OBL BENJAMIN Laterality: BILATERAL Number of different views (projections): 3 sindy ach COMPARISON: None available. RESULT: There is no acute fracture or dislocation. There is no evidence of erosions. There are bilateral posterior and plantar calcaneal enthesophytes. There is degenerative arthritis throughout the bilateral feet. There is no soft tissue swelling. No other significant abnormality. --- IMPRESSION: Degenerative arthritis. No evidence of erosions. Independent Living Advisor: [facility] Transcribe Date/Time: Jun 24 2022 3:36P Dictated by : REA MILLER MD This examination was interpreted and the report reviewed and electronically signed by: REA MILLER MD on Jun 24 2022 3:37PM EST [id number] Normal [facility] XR HAND/WRIST SURVEY 1V PA B ILon 06-24-2022 XR HAND/WRIST SURVEY 1V PA BENJAMIN * * *Final Report* * * DATE OF EXAM: Jun 24 2022 3:26PM CCX 5349 - XR HAND/WRIST SURVEY 1V PA BENJAMIN / PROCEDURE REASON: Bilateral hand swelling * * * * Physician Interpretation * * * * HISTORY: Bilateral hand swelling . TECHNIQUE: XR HAND/WRIST SURVEY 1V PA BENJAMIN Laterality: BILATERAL Number of different views (projections): 1 of each COMPARISON: None available. RESULT: There is no acute fracture or dislocation. There is no evidence of erosions. There is degenerative arthritis throughout the bilateral wrists and hands. There is no soft tissue swelling. No other significant abnormality. --- IMPRESSION: Degenerative arthritis. No evidence of erosions. Independent Living Advisor: [facility] Transcribe Date/Time: Jun 24 2022 3:34P Dictated by : REA MILLER MD This examination was interpreted and the report reviewed and electronically signed by: REA MILLER MD on Jun 24 2022 3:36PM EST [id number] N Normal [facility] cCP IgG SerPl-aCncon 023 Cyclic citrullinated peptide IgG Qn 78 Units High <20 [facility] Comment on above: Order Comment: Speci men Type: BLOOD SPECIMENOrdering Facility: [facility] Address: [address] [id number] Performed By: #### 4 7383-5, 36317-4 ####[facility] [id number] [address] [place] US VENOUS DOPPLER BENJAMIN Leonard 06-19-2022 US VENOUS DOPPLER BENJAMIN ARM EXAMINATION: US VENOUS DOPPLER BENJAMIN ARM HISTORY: Edema of the upper extremity COMPARISON: No relevant comparison available. TECHNIQUE: Grayscale, color and Doppler ultrasound FINDINGS: Region: Bilateral arms Thrombus: None Flow: Normal Augmentation: Normal Compressibility: Normal IMPRESSION: No deep or superficial vein thrombus identified in the arms *Exam performed in accordance with AIUM practice guidelines- Peripheral venous ultrasound, May 13, 2009. Electronically authenticated by: WADE YU Date: 2022-06-19 20:02 Normal [facility] Coding Summary.on 06-05-2022 Coding Summary. CD:[id number] W w+PGhlYWQ+LW8SWJFtT23 ijPGsdB3iD2ZUJZxOHcuc WNCDUYzMNmKxcyGxKV3cr XNjZXJu IC8+NT2gXIRgKhtieUKru 5L4ySQ4E61cde8uIZtmfY M2UOGdStMnynxkg9bagFj 6IDcuNmluOyBt IXLgqW55MIC2oO71Oy59m ABluSZvc3aumZf2HkZfEU EnTTK3ePdeJJzue7WhIUK eA11fwZFfo3X3 RJTsdAuvgZIyZyYaaTI9z W7rOEetqrpjq9xjkrwxZz s8re09hIAps6H6vUK6Q9B oxvX8UDSdbOUa LnlowDWIlD5gxcfhl7tdt zkvDiSfDTYfQDm6BJl4ZA DquPrtWkWfXA80JXI3QWC lkeFsG2OgNDYi hLbaGzJ1f6G8Iq0CR5WHZ zhjB0YPLZSMTQrotCP+PC 59ml06S4DvUrdqOwx5DAW cMEB8lXA5yR6c FMJmGRlfy2E5dZN3J2Twl dMxti1pi3tiOOFfAUzzM8 7upBCut3R2CHJpgZS7PRM mjKvbKbRnbR35 Oyc+IXOmtKzkj4PpEvexm 8sth8petOy2DkubJLWiwi FfkOcwENO4q1JvWq2zXQG ocZV1yKV0dM6b ChUwFaG7DLdsD553PyWcq IPlQmbuN20aE2HiyIY+PH UwTit0HYEihSkwPD9jV8Z hZGRpbmctbGVm sCneUP0zKYTlbnssTIFrx F1aPXRsI5z0DpTcYjY0WH qnZ4AxQINekyxtAr25dL8 lGaNnRpZ8XZrv L0DcxyC7MJUtfZUdRFiuH XO7C15lo6C9IXQgVVObIV E9sYM3cN0uyPxgtuutvSU mdDsgdmVydGlj WWsvNMsvB395WWPchDifM kNvZGluZyBEYXRlOiAgMD QvMTkvMjAyMzwvdGQ+PHR xSRX2uOluCKPd yQEqCAxySy2pjCyufUhiT K3rZMSmkzzyOCIjoY6eUK OedVJvfRswPK0oJOUwcpw lq090OmFtJCZ8 DZEupPZhU8YieM8mDrBuH KQgEFRhY0FpzHSxPTdrG8 03FAhyGrC7TCZcumMiD9K sLWFsaWduOiB0 r8T8Lz2Rr8ZbmlkrL6Zdy PBdPjRnRhwzEDa4V5HbKg wvdHI+AM03NJEuRD43DTn 9SQC6yZfyDZxc GHXzL7RmvG1sCgGmFIBcD GRkOyc+PHRhYmxlIHdpZH RoPScxMDAlJyBzdHlsZT0 cGk5cWHXnNEXk lMcvxIWtEmPpc1grKGLeM UyvNJ5zkZluR3ItwSZ4NO Mmz5a2Bw36Y02tP4GbwZO +UGUwxGI3mRV0 cV8gGkGdRkP8RLeiT702I nTweWNxKedre9eet7abeN a8IjJ8YMTzhbKjmJjaNIM 0l5UdDi50J80w IHdpZHRoPSIxNSUiIHZhb Jsjcv5snN1wNj0+PGNvbC D2dZL0mV7xXoHfNnV6IPr rK778XfHnqSQt Mbjhu8ghy9mlgEg5LfGeB NTzprWrmTftJTD8k9LoPn 56H1DmaFrxb1ClYqq2mt3 2zYQjn8F5bGX5 Q4HgOUAwhrqloOKjaFxxO I0yEUKkujmjZPCobV8aMG UrA7v3RpOxEiY0GXxuZ6J ojwZ8JYCjhEDq HSDitLZGiA3ygmgtv5enm crbPaUhHISaCQa5KFe3MW KanFbgUkTkAMZ3UqQ9XSI 5wRZguR0ryIgw oxxhvL4xJqv+NAS2hGGgu VPWPD6oVmldnTD+PHRkIH Y6nDsjIKquXVLbtU8dFIN jA1q6LxWbJxH0 DRijJ1EqrpM4YFZspJTtV ZLcgMBOrH0wznany3yitg wrJoYvOFZwSEg2GJh2EFT saWduOiBsZWZ0 EiA3KNL1mGGveJ1lbPkxw bxvjG3pRjj+QmlydGggRG O2EBp7L0VhKic6GEIsjXf fTV0xmKPoBYlx Rr9kbGrkhPolGD4sBNOnr nlfu838TzFdy0enXRHoxK QwERcpDAD1V41lc0G3GSB pWSQwXBB1gGK9 qP7cuMoexbxpeAFczXnmr dJgxCgkSUstKQjcM995FJ YrlZzbUhBxTXl9V5AbPlc 8FPFkmDovTM9m nWUdMIbzIq4owBikaHstT D0cOGOxdukpd407CdHer8 qdHAMrzEAyRRlgHXT4H31 rc3E6KAMtYOZd VJS3xBG7kI5zhHonwyaee GVmdDsgdmVydGljYWwtYW suY455MZSlrJqoCoGvpGe 8E0BoJlg9CSDj eIxbYH0cbQKmNSvgVy0gx AuzzSyfWO7zKVRldfsin8 32WiMcv4qzXSKrdTYgYBb dCAH9C29yh8A7 EBPzOTQeNCV1kUK8sG7wh GlnbjogbGVmdDsgdmVydG zsZDguSBfvJ514WLFwcGd nPlBhdGllbnQg BIdsACx5F7FdTgzigAF+P C27LMGbWP94rCNzwALwt6 mlnCo1BnWcNOLyPJV3gQd mYAsql7VgKGJq A03diLIxd1D8TSCmvVvjt ZSrOkAcdPU4sQ3rRZvevv moa3crejfyEoqdc1axeg1 8hJ39T00rSXff ZHRoPSIzMCUiIHZhbGlnb n9tvV3qMn7+KAEstQX4iG Y1tT8yNVBfHfU5EThqA76 9InRvcCIvPjxj z5rex7bytNf9JwE5LFTrz uTxhPmlYMY0w3IgQk41U1 9sIHdpZHRoPSIyMCUiIHZ xaPexce0eaN1w Ii8+XKApdNX6aPF0fI0cZ pKfEoR5URhwG433NfOxoM WoZwaxT30qA4UrkHU+PHR bRim9ZHNlnAsy WM7igYVvYZxyGs9eMZK5E qShIqPxSQtbW0UpFSLkom smlebbcFB4PZQeXPHivK9 4Lq2voHiwFOWq kOGNmO8burmfu7fxbcrgT kLjMOQvCPe9PCi3JXHthR vbQkQuQTV2AcD8GTP9wGK ikN0ydWzzeoxh tW7sI8EiYFUiicizUa45m O5sGwDjEsC2DVuwSfu+Qk zoC4ZEWarsVx4FQl1xTMc vdGQ+PHRkIHN0 aAwwDVapEHQovI8vVHHvD 1z8MhLaFzC3DIbxF0ByNF IsiywaHe79hX3vMmEoKjR 9VAnwH6AntgX5 OFZkbSAgNGvbKBW7Q00hu 7S6MVWlYZFeQPQ7qQY3jN 1hbGlnbjogbGVmdDsgdmV ydGljYWwtYWxp Z633OURzuPntPoI8NgVqQ gY1BDJ4O6JqWos6PQBrnX bcPB7mpDHoHFplHr9tsNl fdXppOR7yVBMb lhvbLXJfgQ1cHLUwbPCyv BhyKX2tSUHakpbqs372El FzTBF9JAEjyTAbB6XlnI3 yOiAjMDAwMDAw H2WayVMjCVgpU584GFvuF vM4MSEnpoOqG9LcSHSkuT otPvS3u6H0Ha20VyKGXJQ yczwvdGQ+PHRk WEO3uCwrTCruRBKbjV9aL LJpG7t0VeVmPkR0IEabW7 MaSKMljwwlTr27vU2tKdN lYpD2BExqD2Sr ehP7YDOpwDQyLZvkLLG9Y 88un3N0HMPgLIVpTJE2xA N3pI7joQvmwortiSDvmTa gdmVydGljYWwt BQgpN324PHLxdIbhIcXjv WFsZTwvdGQ+HQHpVGU5sQ xfMIplAKKxoN0nMVIiJ2f 3TyMfZyU0LLay S4EtAORbyhlgFo88rD1yR uBnLiU9TEoiC8IdtuA0MZ EvePStGLjdVSR8C95gi1A 6RCBbTYIdMXR4 wHQ1qR2ctRrbkndxcKYlz DsgdmVydGljYWwtYWxpZ2 75ECPdhAktVk47zQLkzCv akjS0O4BpZtry dHI+FG42NILgNH85gCMle KUxj3bhtIj8XjEiQQXdGY X0pNorYCwnx0CwURHmU82 lwGQmr4L7QYCf hOrwtILnMaGxcUC1vN8fI Sgatrmrf8ecrqshHreni9 driy52oF67B29zCZwmRWU oPSIzMCUiIHZh hNcdqp3ntM6aFg0+PGNvb LY5cSS2tZ2zHmJtEtL8SZ vkS212LpWnkJUiMscro5e qw6tyyPc1CuAd JLFttkVbtPzkYIP2h7MhI f34G20fIWhnFFTrVVXkIT GiNALaaArwhn3qlT6jQq5 +WM7dj0kkuq12 lU12qLI+MVLtLVH2yWhhB EtmIMEetB7vJLmyBlV9UY BwClDimA27hHTqYVkdOl2 ciEexgByzHZ1t DYFevuava117SxGta7dvE GIltVUlZDzfIFX2Z11rg4 V3JBZkJYDoHII2kCB9rQ8 hbGlnbjogbGVm dDsgdmVydGljYWwtYWxpZ 968KNGjgKlwDfPytYIyH9 xcdkBUQD3sDhqvuUT+PHR aDSF5cPshFFag LOLtaQ1cLLJaT3j9NlBnR dM9KZubM1DimkV4HIYsgR KfWGGdpZTJtB7ijlsqv8t vcjogIzAwMDAw BCo8KMf1TEMnvWqaTnJkT IO6SdG6VZH4nHHdgE6kkN birwktxV7yUnc+RklOOjw vdGQ+PHRkIHN0 xTsqORgeMKVldG6wUDOfO 8q8JsWoFwU9XFsaC8Erob O5FXAxeVLoOALtzGOEhV5 vmatag7ddiomk ZiGsTTWqBHa9DMd4FLOol IipWbCzUXN5JiI9AMH1nZ EvbS0iuAlquaoffC7lBbd +TVJOOjwvdGQ+ XSGiDAQ1uEyxZEfpEXMqr T6jTZJlS5s9KeNyZjF0KN oeF7MqpqV0AVJtiDLvJGU laZLOqR9unpyu r4ilgqcyMsXtIFYfLOy8W Ny6MXLimUrtVxUaJTT6Jb P5SXM5pIZwuL7irMydcrf gkN0wOuf+UGF5 NME7EZ30AI89E7HiWotpg GFibGU+PHRhYmxlIHdpZH RoPScxMDAlJyBzdHlsZT0 fKz1bLJZwXQDz bGxhcHNl (more content not included)... Normal [facility] MRI Spine Lumbar w/o Contras ton 05-31-2022 MRI Spine Lumbar w/o Contrast Exam Date/Time: 05/30/2022 17:53 EDT Reason for Exam: M48.07 Spinal stenosis, lumbosacral region Report IMPRESSION: Multilevel degenerative changes lumbar spine, similar to prior MRI. EXAMINATION: MRI Spine Lumbar w/o Contrast HISTORY: M48.07 Spinal stenosis, lumbosacral region history of fall/injury 2 years ago. Continued back pain with radiculopathy in the right leg. History of scoliosis. Denies prior lumbar surgery or prior fracture. TECHNIQUE: Routine lumbosacral spine MR protocol without gadolinium. Contrast: None. COMPARISON: MRI 09/13/2020. Radiographs 05/30/2022. RESULT: Counting reference: Lumbosacral junction. For the purposes of this report, L5-S1 is considered the last well-formed disc space. Alignment: Moderate S-shaped scoliosis with convex to the right in the lower lumbar spine, grossly similar to prior. Grade 1 retrolisthesis of L1 on L2. Bone marrow signal/fracture: No evidence for recent fracture. No pathologic marrow infiltration. Endplate degenerative signal. Conus: The conus is within normal limits of signal intensity and morphology. Paraspinal soft tissues: Unremarkable. Lower thoracic spine: Visualized lower thoracic canal and foramina are without significant narrowing. T12-L1: No significant canal or foraminal narrowing. L1-L2: Broad-based disc bulge, asymmetric to the right. Endplate osteophytes. Facet degenerative changes. Moderate to severe right foraminal narrowing without significant canal or left foraminal narrowing. L2-L3: Broad-based disc bulge. Endplate osteophytes. Facet degenerative changes. Ligament hypertrophy. Moderate canal narrowing with moderate bilateral foraminal narrowing. Report L3-L4: Broad-based disc bulge. Endplate osteophytes. Facet degenerative changes. Ligamentous hypertrophy. Moderate canal narrowing. Moderate to severe left foraminal narrowing. Mild right foraminal narrowing. L4-L5: Broad-based disc bulge. Endplate osteophytes. Facet degenerative changes. Ligamentous hypertrophy. Moderate left foraminal narrowing and mild canal narrowing without significant right foraminal narrowing. L5-S1: Disc bulge. Endplate osteophytes. Facet degenerative changes. Moderate to severe right foraminal narrowing, mild left foraminal narrowing without significant canal narrowing. 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 Ordering Provider: Gerald Pham FINAL REPORT Dictated: 05/31/2022 2:25 pm Luis Fernando Lora MD Signed (Electronic Signature): 05/31/2022 2:25 pm Signed by: Luis Fernando Lora MD Transcribed by: HERMINIO Technologist: FAYE Technical Comments None Normal [facility] XR Spine Lumbosacral Minimum 4 Viewson 05-31-2022 XR Spine Lumbosacral Minimum 4 Views Exam Date/Time: 05/30/2022 17:00 EDT Reason for Exam: M48.07 Spinal stenosis, lumbosacral region Report IMPRESSION: SCOLIOSIS AND DEGENERATIVE CHANGES OF THE LUMBAR SPINE. EXAMINATION: XR Spine Lumbosacral Minimum 4 Views TECHNIQUE: AP, lateral, bilateral oblique views of the lumbar spine and AP and lateral coned down view of the lumbosacral junction HISTORY: Spinal stenosis of the lumbosacral region. Low back pain. COMPARISONS: Lumbar spine MRI performed the same date. FINDINGS: S-shaped scoliotic curvature of the lumbar spine. Lumbar vertebral body heights are maintained. Srjt-ln-ptytweye intervertebral disc height loss throughout the lumbar spine. Multilevel degenerative endplate changes with spurring. Facet arthropathy throughout the lumbar spine. No spondylolysis or spondylolisthesis. Mild degenerative changes of the sacroiliac joints. Atherosclerotic ossification of the abdominal aorta. Ordering Provider: Gerald Pham FINAL REPORT Dictated: 05/31/2022 4:24 pm Ganesh Eric DO Signed (Electronic Signature): 05/31/2022 4:24 pm Signed by: Ganesh Eric DO Transcribed by: HERMINIO Technologist: MARIA DEL ROSARIO Technical Comments Radiation Dose: Ka,r in mGy = na DAP = na [facility] Consent for Treatmenton 05-18 Consent for Treatment [id number]#1 .00CD:127 [facility] RAD - MRI Screening Formon 0 05-30-2022 RAD - MRI Screening Form [id number]# 1.00CD:127 [facility] Physician Orderon 05-23-2022 Physician Order [id number]#1 .00CD:127 [facility] Physician Order [id number]# 1.00CD:127 [facility] Physician Order [id number]# 1.00CD:127 [facility] Workers' Comp Officeon 05-23 Workers' Comp Office [id number]# 2.00CD:127 [facility] Coding Summary.on 05-14-2022 Coding Summary. CD:[id number] W w+PGhlYWQ+EL4YSMVjH88 ijBMsxK9oQ9TIQXgDQyaw GNGQVBvKGxJcjnUsXG2ea XNjZXJu IC8+PE5pTGAcMwbwwCDyg 4S3rJA3J34ulz0bCExpyO D1UHQfMyAkrajnv3btbSf 6IDcuNmluOyBt BDZtbG62IBM0gX90Jo16y BTxfPAun4fabIn6GkWoCH RzHBX0qZmoTDmrn5CyCMX bA89sbNQch8F2 GJLywWoefBDxClIhuYZ1m O0qFDgljzjkf0gydxraGu r4oa27zHVsk6L8iSL9A9L wmhX1OQYrnRMe SwzhrHJAwA4jdfklr7ywp bmwNkKdBMYjPWx1NXw0ON HevRpoMrLfAX32EFH3KLT jxaUcI5UgOIKj oTdrDsU0v6E0Ah6PV6WAN egtZ8LQGGHEIJengTD+PC 40fm33B4IyFxawBla3MKZ dCOO0lTF2yX7b VOVuMSyqh4R2kKO0E3Dub jCezr3ll6jeRDNjZAdbX4 9qcFIcm5N7DYUviJT6CTM ipXsxKgQpuS47 Oyc+ZNPimFkqd6DvYsgjs 7grw0qbeOv5TnxdQCMyik BbjGmoGOJ3n3MzWs9qKLD nfFR2sKJ4yC1w QpIwGqE3OQomE955WgCzm HCeFtatW63rN0XdaFA+PH BfSfv9STAcrRunTS0wX0V hZGRpbmctbGVm iJszSD7oLDTtlpseIQZpl P5qSUEyL5c1ViDeBmK6AZ ttB7PySVQtmggiNx56yX0 eHkHuAcS7IVii Q5JtbsK3QJLvnLMfRMikT PO2E68em1G5RSLoSNBnFU Z3iLR7oW2brNnhuurjrQI mdDsgdmVydGlj EXiuYJvvH633DDQscQesN kNvZGluZyBEYXRlOiAgMD MvMjgvMjAyMzwvdGQ+PHR yJVU2hPzpAKJt kGUeQQssRn3otZeynMepO C0uEEXrsqooOPGlzC4gOZ VovRRetCogUG8tKWEpabe fy281IzTqHMM1 DOQvjLJaV7YgeU9nMzXaS MCcQVBfK9RyoEDqQYyrK1 95JMokEcT4SZSdkxNsC7K sLWFsaWduOiB0 d0H2Bc2Fc3BuidjwP7Fkt TCqWgVqRbaoTHq1P2LeOo wvdHI+SP43ZPLdYX47NFb 0AWE9oAckVVxs PBIeG3AdbB9mZtGfEPShP GRkOyc+PHRhYmxlIHdpZH RoPScxMDAlJyBzdHlsZT0 bDe9lSFDwEQTp kBhydVHaGfLvv1zmAUGfJ MzlTY1ayPudK7IrqCQ7RF Hjl3r6Oi84U29jN3XixWF +VDCuyRX7mMX0 uJ3gIlQqUeU7NQrkG424U qTatOHuKeucf2gxd2fwlT q2NuD4MLJhvpZyeZmhYEM 2m1PaKp23U47t IHdpZHRoPSIxNSUiIHZhb Efcvx2bxT2gPt4+PGNvbC M2zXL6aY9gAbFeRqI1DZg qS129OzYgfYWo Dmyer6enr7dfwBd7RgTpF FBsqnJokUrjZLM8f7GrFq 30I4SzgUzej6LmFco3wj5 9wEOtc2O4wWI5 O7FpOGThaedsjFRzmHojP H4sOFRnhnxnTZLheP4hIY NlQ5w7BsShIsC7CDdsF7D qakS5GZQcyREw HUMomTGYkD1diqaxe0zrt tqaKuJyACEhSJf1CBf9HB SdbMioSdKgYOI4MqQ5BNX 5aHAqpC0tvBgs zqqueT4dGgb+ZGO0wDSkt FLUCP4pYwihmRY+PHRkIH X6xAxeSLyjUWKjcO1fKEY oH9j9LjZxGaF5 FYvrF5RnjbB1CKNpxWDiP IXdnLJDxW4potuya5tqyh rtCtLaRAXgIKf4TOo4WSQ saWduOiBsZWZ0 GnL1IZM4jZNhrH6idWdwg gkphE1bBeb+QmlydGggRG B2ONe6E3FfSbr2JFBpoYb yHU9qxLBeCEvc Tr2nrNwrmJixJH3zYIGxh hydb927VvFsx5lxRWSlwO GlQVwuXGJ8X88it6U4MHI mREClFEM7fWX8 dT2aaCmnwcqrxELdxFyox iXfbMpkTTsvJFtjL470AO AwtOtpArSjDSa4Z0RqOxi 7EVIkoOruNV7w rIDuXUnzOi8jlJhqiGvwX A9rUFDqnfoln518OvWcm3 zcVZHrgUMcPXpyPZP2Y76 at0J7LDZdOSOc LPB1eOI0sN0umEpithxpd GVmdDsgdmVydGljYWwtYW ayZ502MIVsePdqZqTffWm 9L7RdRdf4RAMp vAlsNY2zfQKjYRkeLf7wn GrblUlmFH6zRGBguamex0 44LpUzr1meOJUvgSOyWBu rULJ9T19xi6S0 KECjVWXlNQY3yVY5yC8qd GlnbjogbGVmdDsgdmVydG dvOVgiDYtqK811ZMDmrSw nPlBhdGllbnQg GJbwUMr2Z7EnPutuzIJ+P E87CSObOE80gGLgdAYgn1 enmQr6YzIvWAMuSHJ8rFf fQLvss2IdLIYf K71buWDkv2B2PDLybDwve NKjApKlsLH3tP0uQYnsuz pay9utlunaExjxq5mpbp3 7bL10Q27oUBeb ZHRoPSIzMCUiIHZhbGlnb q2waN5jXm5+IBSktLB8oW Z5bP0gEXGrSlJ0JNonC24 9InRvcCIvPjxj e3flw2eplQo2InU6SUIpf xCjcWdkEYE5k8GrYp11O1 9sIHdpZHRoPSIyMCUiIHZ qwCktdn8toN3n Ii8+NQBngSG7tOA7iM0oH uUxSfU5ZDuxI342FdGmcJ AwCmgmQ95fX2GvxQD+PHR iEqv8TLUipRzx MH6szONqERnrTv8tLLH2A lZlBdEeAFxlK3VxVJZvhr ocmuysxZD9ZXNpFBNodG7 8As8ouRtfKIWv jWYUeX8rszudc5aqvxxwG wJfPZPcBZk5ROf9BHQigP ghFcGwJIA4YtV5KAN8yWV wrS9oxEeqmtvz zN3wO7KnSRXvxekpTs93p E3cMxYuYiZ5RQzyLej+Qk zcX9PYLbvpGm0LAz4bCMq vdGQ+PHRkIHN0 vVptUEkyOHGgbD8iKBMaV 4g8MoQyDdS8XCpgH3LqNR JgagmmUh60eU4zYyTcSkD 8HZrbB3PhztI7 UIYziKOfLGrqHCJ5R85xl 4B2ZTVrWVGnWCV0lKF1hE 1hbGlnbjogbGVmdDsgdmV ydGljYWwtYWxp E082HIArmMibTeE3InJcH iK4NRZ9Q9NuNbl7UGLozV xgMV7xoVRjNUvcRf4zyZp nfHpkDZ0gNGOm ehttBAUnvI6bEYZflHNsi AhmAR5jEDAchcxky797Rl NvQGI3WIMlnZFhI3RgpT5 yOiAjMDAwMDAw R5KzwIHtELpsB840XFhaC nE6TVTudbBbT0IoAOJsvH eiCsK0r8O1Jw29BnPWOSH yczwvdGQ+PHRk NUA6gVbyRAbdIYOdsV7aD AAoA8w5JoUrOuO6GFphY4 CuHHQjkubjWq13dP2rYoH vHuN4DCyfT0Sq oiO5HXGhxETnLMdlJTN6N 51nh6C1RBLnAEQfIBI4oB M8wV6rlLengsaoaSOlfUw gdmVydGljYWwt RRvxB549INZypVgpGvIzw WFsZTwvdGQ+GQXpQMR9vM ndIBzmCNCyoK7eBCGjH9p 8MrKqSqW8QOjt D4ShGLYnrcztCe01rN0yW kYuQzP7BIudD6FbjnE5YQ AtfLDiWAtgPIK9H41gd1R 4RCQkIRBcRZF1 jQY3yS4mvMikjuxopAAja DsgdmVydGljYWwtYWxpZ2 09FFIivGkwJwMlnZ8wRBM uYWdlbWVudDwv dGQ+SU67pj47M5GrDuqoJ mm7QKNzSOP6uQR2qT6qVE MhYQwss3E7dWY5O0DchoG vzm4li0icWUCn RPwkP16uhLBla2V2SCMah RZ1UMLkgIezBfAcjJ04Du c+GLBkfAtos7ImKutwd5u nx9limBz9HxPt YGSfkzXwyDafKMS8d2XjN f00A19qPVchFZPlWWQtVA DyNKUjmHmveo2rrF4uTb3 +JUAidBW9gWV7 wS8aGyBuSfM3ZBcfE473C iHkdIDvWwzec1jpx2ybiY t9XsHgTJEpzvKsfWspJWC 3u9IdOp46N6Ey fMslz9JyYyz8vz67cYZly 5O2oLG2S6RkTWZdvttliN XewClhTL2rCBXbetqlTUB sqK6zKGNxJ5z1 SaVkQsQ2TUzdL0HiynN3T ZPrkKJtFIBppYQKkH4vmy hel3zucadgCqWiTYFzLCd 9ALu0CQJjgUbw FnUuZMN4OlM0KNP9fGXub J5arQeltzyptQ7oPcx+UG d6m4gllVHqFS6taZT2YL1 2GZ45eVUcb4I4 fMP5P2FcKOOdtzgfcyubn VM2JQWpJHSowZ72Jy0eiR gaTa1uLZIqQEK7CYVbkJA fQ0AreK6yViGr GHFhLPAhC7ZkqTZjOOajL 184BEuvAzG9JFWzgbSeN8 CeSIXbmZpwRjG0v7P8He4 CYC87ER54HT31 rERyt1K7eBK4B3EbMFTzj lqnvahbqUA3GHHsAZHrzL 47El5ntEcnBz8rGBIkGPM 8FEPbjKPnN9Zd jI9kReTxUIJlVBWpO4Lul BBuBFnoI678KPomIbC3GQ EmacYwD5XfKBHhgIeoHrL 5r7C7Wu2FMq40 MI31KH32qGNdo5H5nTD0X 0OaZZUdfbzturfgjCC4CU InFXIkdH88Um1jaStaIu3 kNIWeZHE4OSEu bXVxY8IdfC6xRuMlMMMfM FLcU9YnnIUiBHamF752OM olQeA3CDQdxkWlR8UxTNA vyLwvNvS1h6B9 Ia9AOIdesvo3R2OnMrsil HI+YR84OYHpTG23gWStqK Tse4nclFy4SuRlGSQkKAR 8lZdlGGwkt8Ji SDHnS03e (more content not included)... Normal [facility] US KIDNEYSon 05-14-2022 US KIDNEYS EXAMINATION: US KIDNEYS HISTORY: H/O: urinary disease ; microscopic hematuria COMPARISON: No relevant comparison available. TECHNIQUE: Ultrasound examination was performed of the kidneys and urinary bladder. FINDINGS: RIGHT KIDNEY: No evidence of pelvocaliectasis, mass, or calculi. Normal renal cortical parenchymal echogenicity. Color Doppler demonstrates blood flow within the kidney. No significant cortical thinning. Kidney: 10.4 x 6.3 x 6.2 cm LEFT KIDNEY: Contains a nonobstructing 4 mm stone within inferior pole. No evidence of pelvocaliectasis or mass. Normal renal cortical parenchymal echogenicity. Color Doppler demonstrates blood flow within the kidney. Mild cortical thickening, 1.1 cm; likely age related. Kidney: 10.1 x 5.4 x 6.4 cm BLADDER: No visible wall thickening, mass, or calculi. IMPRESSION: 1. Nonobstructing left nephrolithiasis. 2. Otherwise unremarkable kidneys. Electronically authenticated by: SOFIE PATTERSON Date: 2022-05-14 14:20 Normal [facility] Consent for Treatmenton 04-18 Consent for Treatment [id number]# 1.00CD:127 Normal [facility] Legal Correspondence Officeo n 05-09-2022 Legal Correspondence Office [id number]# 1.00CD:127 Normal [facility] Office/Clinic Note-Physician on 05-09-2022 Office/Clinic Note-Physician [id number]# 1.00CD:127 Normal [facility] Patient Correspondenceon Patient Correspondence [id number]# 1.00CD:127 Normal [facility] Patient Correspondence [id number]# 1.00CD:127 Normal [facility] Patient Correspondence [id number]# 1.00CD:[address] [facility] Patient History Officeon Patient History Office [id number]# 1.00CD:[address] [facility] INSULINon 04-26-2022 Insulin 25.3 uIU/mL Critically high 2.6-24.[address] [facility] Comment on above: Performed By: #### I NSULIN ####[facility] [address] [address]Dr. Marion Bullard CBC AUTO DIFFon 04-25-2022 BASO # 0.1 103/ul Normal 0.0-0.1 [facility] Comment on above: Performed By: #### C BC #### [facility] [address] [address] [address] Marion Bullard Basophils/100 WBC (Bld) 0.6 % Normal 0.2-2.0 [facility] Comment on above: Performed By: #### C BC #### [facility] [address] [address] [address] Marion Bullard EO # 0.2 103/ul Normal 0.0-0.7 [facility] Comment on above: Performed By: #### C BC #### [facility] [address] [address] [address] Marion Bullard Eosinophils/100 WBC (Bld) 1.1 % Normal 0.9-7.0 [facility] Comment on above: Performed By: #### C BC #### [facility] [address] [address] [address] Marion Bullard Erythrocyte distribution width (RBC) [Ratio] 12.7 % Normal 11.0-15.0 [facility] Comment on above: Performed By: #### C BC #### [facility] [address] [address] [address] Marion Bullard Hematocrit (Bld) [Volume fraction] 43.8 % Normal 36.0-48.0 [facility] Comment on above: Performed By: #### C BC #### [facility] [address] [place] [address] Dr. Marion Bullard Hemoglobin (Bld) [Mass/Vol] 14.6 g/dL Normal 12.0-16.0 [facility] Comment on above: Performed By: #### C BC #### [facility] [address] [place] [address] Dr. Marion Bullard IG # 0.11 10e3/ul Critically high 0.00-0.[address] [facility] Comment on above: Performed By: #### C BC #### [facility] [address] [place] [address] Dr. Marion Bullard IG % 0.7 % Critically high 0.0-0.5 [facility] Comment on above: Performed By: #### C BC #### [facility] [address] [place] [address] Dr. Marion Bullard LYMPH # 3.1 103/ul Normal 1.2-3.8 [facility] Comment on above: Performed By: #### C BC #### [facility] [address] [place] [address] Dr. Marion Bullard Lymphocytes/100 WBC (Bld) 19.4 % Critically low 20.5-60.0 [facility] Comment on above: Performed By: #### C BC #### [facility] [address] [place] [address] Dr. Marion Bullard MANUAL DIFF REQ NO Normal [facility] Comment on above: Performed By: #### C BC #### [facility] [address] [place] [address] Dr. Marion Bullard MCH (RBC) [Entitic mass] 29.9 pg Normal 26.7-34.0 [facility] Comment on above: Performed By: #### C BC #### [facility] [address] [place] [address] Dr. Marion Bullard MCHC (RBC) [Mass/Vol] 33.3 g/dL Normal 29.9-35.2 [facility] Comment on above: Performed By: #### C BC #### [facility] [address] [address] [address] Marion Bullard MCV (RBC) [Entitic vol] 89.8 fL Normal 81.0-99.0 [facility] Comment on above: Performed By: #### C BC #### [facility] [address] [address] [address] Marion Bullard MONO # 1.3 103/ul Critically high 0.3-0.8 [facility] Comment on above: Performed By: #### C BC #### [facility] [address] [address] [address] Marion Bullard Monocytes/100 WBC (Bld) 8.1 % Normal 1.7-12.0 [facility] Comment on above: Performed By: #### C BC #### [facility] [address] [address] [address] Marion Bullard NEUT # 11.3 103/ul Critically high 1.4-6.[address] [facility] Comment on above: Performed By: #### C BC #### [facility] [address] [address] [address] Marion Bullard Neutrophils/100 WBC (Bld) 70.1 % Normal 43.0-75.0 [facility] Comment on above: Performed By: #### C BC #### [facility] [address] [place] [address] Dr. Marion Bullard Platelet mean volume (Bld) [Entitic vol] 8.5 fL Critically low 9.5-13.5 [facility] Comment on above: Performed By: #### C BC #### [facility] [address] [address] [address] Marion Bullard PLT 488 103/ul Critically high 150-450 [facility] Comment on above: Performed By: #### C BC #### [facility] [address] [address] [address] Marion Bullard RBC 4.88 106/ul Normal 4.20-5.40 [facility] Comment on above: Performed By: #### C BC #### [facility] [address] [address] [address] Marion Bullard WBC 16.1 103/ul Critically high 4.0-11.[address] [facility] Comment on above: Performed By: #### C BC #### [facility] [address] [address] [address] Marion Bullard FREE THYROXINE INDEX T7on FTI 2.69 Normal 1.30-4.50 [facility] Comment on above: Performed By: #### L IPID, CMP, T7, TSH ####[facility] [address] [id number]. Marion Bullard T3U 34.0 % Normal 30.0-39.0 [facility] Comment on above: Performed By: #### L IPID, CMP, T7, TSH ####[facility] [address] [id number] Bullard T4 [Mass/Vol] 7.90 ug/dL Normal 4.80-13.90 [facility] Comment on above: Performed By: #### L IPID, CMP, T7, TSH ####[facility] [address] [address]DrSolitario Bullard GLYCOHEMOGLOBIN A1Con 2022 ADA RECOMMENDATION SEE BELOW Normal [facility] Comment on above: Result Comment: ADA RECOMMENDED LIMIT 4.0 - 6.0 ADA THERAPEUTIC TARGET < 7.0 ACTION SUGGESTED > 7.0 Performed By: #### A 1C ####[facility] [address] [address]DrSolitario Bullard Glucose [Mass/Vol] 120 mg/dL Normal [facility] Comment on above: Performed By: #### A 1C ####[facility] [address] [address]DrSolitario Bullard HbA1c (Bld) [Mass fraction] 5.8 % Normal 4.5-6.2 [facility] Comment on above: Performed By: #### A 1C ####[facility] [address] [address]DrSolitario Bullard IRONon 04-25-2022 Iron [Mass/Vol] 94.0 ug/dL Normal 50.0-170.0 [facility] Comment on above: Performed By: #### I NANCY #### [facility] [address] [address] [address] Marion Bullard LIPID PROFILEon 04-25-2022 CHOL-HDL RATIO NORM SEE BELOW Normal [facility] Comment on above: Result Comment: 3.3 - 4.4 LOW RISK 4.4 - 7.1 AVERAGE RISK 7.1 - 11.0 MODERATE RISK >11.0 HIGH RISK Performed By: #### L IPID, CMP, T7, TSH #### [facility] [address] [address] [address] Marion Bullard Cholesterol [Mass/Vol] 193 mg/dL Normal <=200 [facility] Comment on above: Performed By: #### L IPID, CMP, T7, TSH #### [facility] [address] [address] [address] Marion Bullard Cholesterol in HDL [Mass/Vol] 49 mg/dL Normal 40-60 [facility] Comment on above: Performed By: #### L IPID, CMP, T7, TSH #### [facility] [address] [place] [address] Dr. Marion Bullard Cholesterol in LDL [Mass/Vol] 122.4 mg/dL Normal [facility] Comment on above: Performed By: #### L IPID, CMP, T7, TSH #### [facility] [address] [address] [address] Marion Bullard Cholesterol.total/Cho lesterol in HDL [Mass ratio] 3.9 {ratio} Normal [facility] Comment on above: Performed By: #### L IPID, CMP, T7, TSH #### [facility] [address] [place] [address] Dr. Marion Bullard HDL NORMAL > or = 60 mg/dl - LO W CARDIOVASCULAR RISK <40 mg/dl - HIGH CARDIOVASCULAR RISK Normal [facility] Comment on above: Performed By: #### L IPID, CMP, T7, TSH #### [facility] [address] [place] [address] Dr. Marion Bullard LDL CALC NORMAL SEE BELOW Normal [facility] Comment on above: Result Comment: <100 mg/dl OPTIMAL 100 - 129 mg/dl NEAR OR ABOVE OPTIMAL 130 - 159 mg/dl BORDERLINE HIGH 160 - 189 mg/dl HIGH >190 mg/dl VERY HIGH Performed By: #### L IPID, CMP, T7, TSH #### [facility] [address] [address] [address] Marion Bullard Triglyceride [Mass/Vol] 108 mg/dL Normal <=150 [facility] Comment on above: Performed By: #### L IPID, CMP, T7, TSH #### [facility] [address] [address] [address] Marion Bullard VLDL CALC 21.6 mg/dL Normal [facility] Comment on above: Performed By: #### L IPID, CMP, T7, TSH #### [facility] [address] [address] [address] Marion Bullard PROF 14(COMP METB)on 023 Albumin [Mass/Vol] 3.4 g/dL Normal 3.4-5.0 [facility] Comment on above: Performed By: #### L IPID, CMP, T7, TSH #### [facility] [address] [address] [address] Marion Bullard Albumin/Globulin [Mass ratio] 0.9 {ratio} Normal [facility] Comment on above: Performed By: #### L IPID, CMP, T7, TSH #### [facility] [address] [address] [address] Marion Bullard ALP [Catalytic activity/Vol] 93 U/L Normal 46-116 [facility] Comment on above: Performed By: #### L IPID, CMP, T7, TSH #### [facility] [address] [address] [address] Marion Bullard ALT [Catalytic activity/Vol] 26 U/L Normal 14-59 [facility] Comment on above: Performed By: #### L IPID, CMP, T7, TSH #### [facility] [address] [address] [address] Marion Bullard Anion gap [Moles/Vol] 12.7 mmol/L Normal Th [facility] Comment on above: Performed By: #### L IPID, CMP, T7, TSH #### [facility] [address] [address] [address] Marion Bullard AST [Catalytic activity/Vol] 21 U/L Normal 15-37 [facility] Comment on above: Performed By: #### L IPID, CMP, T7, TSH #### [facility] [address] [address] [address] Marion Bullard Bilirubin [Mass/Vol] 0.5 mg/dL Normal 0.2-1.0 [facility] Comment on above: Performed By: #### L IPID, CMP, T7, TSH #### [facility] [address] [address] [address] Marion Bullard Calcium [Mass/Vol] 9.1 mg/dL Normal 8.5-10.1 [facility] Comment on above: Performed By: #### L IPID, CMP, T7, TSH #### [facility] [address] [address] [address] Marion Bullard Chloride [Moles/Vol] 104 mmol/L Normal 98-107 [facility] Comment on above: Performed By: #### L IPID, CMP, T7, TSH #### [facility] [address] [address] [address] Marion Bullard CO2 [Moles/Vol] 29.2 mmol/L Normal 21.0-32.[address] [facility] Comment on above: Performed By: #### L IPID, CMP, T7, TSH #### [facility] [address] [address] [address] Marion Bullard Creatinine [Mass/Vol] 0.68 mg/dL Normal 0.55-1.02 [facility] Comment on above: Performed By: #### L IPID, CMP, T7, TSH #### [facility] [address] [address] [address] Marion Bullard EGFR-AF GEORGIAN >60 Normal >=[address] [facility] Comment on above: Performed By: #### L IPID, CMP, T7, TSH #### [facility] [address] [address] [address] Marion Bullard EGFR-NON AF GEORGIAN >60 Normal >=60 [facility] Comment on above: Performed By: #### L IPID, CMP, T7, TSH #### [facility] [address] [address] [address] Marion Bullard Globulin (S) [Mass/Vol] 3.9 g/dL Normal [facility] Comment on above: Performed By: #### L IPID, CMP, T7, TSH #### [facility] [address] [address] [address] Marion Bullard Glucose [Mass/Vol] 103 mg/dL Normal 74-106 [facility] Comment on above: Performed By: #### L IPID, CMP, T7, TSH #### [facility] [address] [place] [address] Dr. Marion Bullard Potassium [Moles/Vol] 3.9 mmol/L Normal 3.5-5.1 [facility] Comment on above: Performed By: #### L IPID, CMP, T7, TSH #### [facility] [address] [address] [address] Marion Bullard Protein [Mass/Vol] 7.3 g/dL Normal 6.4-8.2 [facility] Comment on above: Performed By: #### L IPID, CMP, T7, TSH #### [facility] [address] [address] [address] Marion Bullard Sodium [Moles/Vol] 142 mmol/L Normal 136-145 [facility] Comment on above: Performed By: #### L IPID, CMP, T7, TSH #### [facility] [address] [address] [address] Marion Bullard Urea nitrogen [Mass/Vol] 13.0 mg/dL Normal 7.0-18.0 [facility] Comment on above: Performed By: #### L IPID, CMP, T7, TSH #### [facility] [address] [place] [address] Dr. Marion Bullard Urea nitrogen/Creatinine [Mass ratio] 19.1 mg/mg Normal [facility] Comment on above: Performed By: #### L IPID, CMP, T7, TSH #### [facility] [address] [place] [address] Dr. Marion Bullard PROTIMEon 04-25-2022 INR Coag (PPP) [Relative time] 0.95 {INR} Normal [facility] Comment on above: Performed By: #### P TT, PT #### [facility] [address] [place] [address] Dr. Marion Bullard INR GUIDELINES SEE BELOW Normal [facility] Comment on above: Result Comment: YARELI RED INR: 2.0 - 3.0 CONDITIONS NOT LISTED BELOW 2.5 - 3.5 FOR PROSTHETIC HEART VALVE REPLACEMENT 2.5 - 3.5 RECURRENT THROMBOSIS Performed By: #### P TT, PT #### [facility] [address] [place] [address] Dr. Marion Bullard PT Coag (PPP) [Time] 10.1 s Normal 9.0-11.6 [facility] Comment on above: Performed By: #### P TT, PT #### [facility] [address] [place] [address] Dr. Marion Bullard PTTon 04-25-2022 aPTT Coag (Bld) [Time] 27.3 s Normal 22.3-36.2 [facility] Comment on above: Performed By: #### P TT, PT #### [facility] [address] [place] [address] Dr. Marion Bullard TSHon 04-25-2022 TSH 3.782 uIU/mL Critically high 0.358-3.740 [facility] Comment on above: Performed By: #### L IPID, CMP, T7, TSH #### [facility] [address] [place] [address] Dr. Marion Bullard XR HAND LT MIN 3Von 03-29-19 23 XR HAND LT MIN 3V EXAM: XR HAND LT MIN 3V HISTORY: Joint pain COMPARISON: None. TECHNIQUE: 3 views of left hand were obtained. FINDINGS: There is no evidence of an acute fracture. There are degenerative changes present with moderate narrowing at the first carpometacarpal joint accompanied by osteophytes. There is also moderate narrowing of the first metacarpophalangeal and interphalangeal joint of the thumb accompanied by osteophytes and soft tissue calcifications at the interphalangeal joint. There is mild narrowing of the proximal interphalangeal joints throughout the hand. There is mild to moderate narrowing of the distal interphalangeal joint accompanied by osteophytes. These degenerative changes are more prominent in the second digit distally. Diffuse osteopenia is noted. Some soft tissue swelling about the second digit proximally is noted. IMPRESSION: No apparent acute fracture or dislocation. Degenerative changes are seen throughout the wrist and hand, as described. Diffuse osteopenia is noted. Soft tissue swelling of the index finger is noted. Direct comparison with a previous study would be helpful in determining the chronicity of these findings. Electronically authenticated by: JANNA SON Date: 2022-03-29 16:06 Normal [facility] Coding Summary.on 03-21-2022 Coding Summary. CD:[id number] G h0bWw+PGhlYWQ+VU0JBFF bT03vzKXsjR1FE6pLDD2T PUVSNGWNQN9HFA4prSE7C NasM0VeszXi HlyzcNWiZA57RSh4JKQ6h XurTXxdyN0mnPInC7z6Ug PfPD25vD00ACeqMITnWeE 3LjZpbjsgbWFy B1zsEsCfwUQsPce+PHRhY mxlIHdpZHRoPScxMDAlJy DgoYhvNU7cCy0xKKXhWJV vbGxhcHNlOiBj o2rtSPJxTZofNS5wzEytJ 6AhlWR2XIBqc8y7Pj52bE I+AWViVGC5kMrfEBmot11 5IhTti4deHPJ2 cYMxYSahDJW9V16rg0Q4X ADdXFLvQPB1pHE5pG5hcF vcdbfzN8JfmLVeGaL6CLP 3gZOkvB4foTfq sydejF3oIwp+C37OCX8RZ RSLKB6QHde0K2PjYfyvcZ I+JW50YRMrFP29aZQpuAE qv6dkzCc0NhZk CXHnTHR9zTexEErms7WdI SCrJ81fiWGfh9P9XJDelW jsoECsVbQdxRI6tP6bRHj oqgfhi7fbzpwa Yurwp3nqoi36yA53M43kX PeyPPBfUSV3BCXaDKFgtE gals6suX1aQt1+CSbdo8u iu2oweBt4FeBb MKSlteVaaNmfYPW8j7GtV f82P7CvrWdnz3PrPkg0dk 85vMUpr5N1pIG9CHemOJD xtY6vAQwtXxS2 KZExRvJveF38lUBhFWpkP l3lgFkjkSzuSS9fAIEedx gxEQRfpN5tNJRgdMEirVp sWC3wWXCjwtjc e165ZsMjABY8EWGbdNIsX 8OigT2uPdCaLASqWNWeC3 XgnVQoKFxdL251CXnhJwA 5PITunzAgL0Ty TJHcaBxqTuV4g6K3Xx0Il 2PdjatfNWI3THkvVUDdTf QcAuQxGbC8H3YtGao3GVI sjTsrGK0aV7Lu TGNjmcbdwjklqXB4LPOqE JUkyU79xJTzVXmpWh6dp6 B5v736OSSkJWYiqE76Lz3 udDogMTBwdCBU uE8ligtyv3ypuorfLkPbA FOwZKc5ESy2LXPmgRkhOw UsOUN2EwE7RVP5xBErgW2 ucLctafhpvX8s Oyc+X86qwS7iJHM2HEO0p jrsRVVnipVeJP90BS96B6 RyPjwvdGFibGU+PGRpdiB jwWwvBC9kRoUv o0iux5FvXVioK6CjVGTvV VerLcq1HMNkJYE1uGM5vM 4aBFIrHJmqk8X5zOH9M5E ovoHkqu0zz4zy DXYzZRgfL55hdYFzp5V8E XBqbUH5MTWbiUglSzZqoY 93Oyc+WSOfgUelu6OsHxq mm2brk0lumAv1 HmSzTVVqzbPloPogGXQ9k 1ArXc51A73jSEvyDHNhVR LoMHExUPEdlSejcv5udM6 wIi8+PGNvbCB3 oCM2gA8sYPKlFyO2WQkrB 408SbIykVGsWvvzt4wjh9 iyvFk8ZgSrQRPkgwHjoHg eYGQ6q4HqDb84 L21uVLuxUBVhKMXsTZMhA KYajPahpr2akD6rVa7+PC 7yt6voms11jR28xZU+PHR lZER8qNtzEHxj SPSazF2sCVdaDbP6YCSmZ wAhkK26dAOfBFrsUq1hbR ffuSacZW0eGITctbwuk01 8FfEss7tzEHBv bPAaTDdkFEL5Z15ay0R7X QNuNBQkATC0gZQ9lE4baM lnbjogbGVmdDsgdmVydGl dJRksWFfyI912 IHRvcDsnPlBhdGllbnQgT kKlDLj7A3LnYdz2OSJozD kqFM9avJUsQMlsHa8kvVn zdFwtIK8oJJEu jqaut993LjHyb3huREJks QCmPZlhGLY4I16py5N9ZU HyULRtLPB0bDF8eM5xtOt nbjogbGVmdDsg yvVpsOdcIMrvLBqeS425E HRvcDsnPkJpcnRoIERhdG U1GQ59FG22cSEyt6N8tLT 3N3BpGEYdyzvy ejnsxAD5ADAcMUHzoU07T d8glNabHd2yANHfRWB5SY EclXEmZ0ViaM2gDcYdGDJ uMYQsX9LzdEAc FDetN262WBnqLoI1MQYzh lEaF0PbVQWevTykCaY5r2 U0He2ZG4S6DL63SA88rUU jh1Z1pUI8T4Al IZZzfkyevxyjvFZ7EHXgP LYqcZ49Cx7lrXlrJt0aRK RnHYI9LTMvlOQrM3LujD1 yOiAjMDAwMDAw Z5YomAAmIMsgQ908BNaeM cB3EBHowbMvV5OgDVCtpL yfBlR0p6O3Jd0CBHc3UF6 3BQ43fVGge1T1 hBX4U2UhCMClschteiehq BX8ZGNwOMCvbC16Qp5wsD fvNe9wHOPzZOR7HIRlaVO kY4BsmW1qHdZn SJCoQCEnE7ThlSPjPIkeK 565JJciQvG1PUMvatYaQ7 DcRRWvpCxuOxZ6q9X6Ye5 SJRMrKG83TQT1 qPU7PK13ZH57D0PxFcwau GFibGU+PHRhYmxlIHdpZH RoPScxMDAlJyBzdHlsZT0 kYu9eRHNbDSUz gUovrZKeQxQml8mnVEMlS EmmAL2unPdzY3OsvIC0DO Pae1o6Ln25O04cT1UudET +PRVdmUO8nCL0 iZ5iVpDlNbC2VMivU188N qOgmXPzYpbph7dai9wflK l9PqS5QCMnblFcqLlaWBF 9o7KyMl79H60t IHdpZHRoPSIxNSUiIHZhb Tcomp8ytS6rSm3+PGNvbC L9tAW9zQ9nVoRuNyL8DQz aN608BgZejAFw Opfba2jxn6euoZv4JqOdQ AMzjlLakTzyUWF2i9OtEp 37R8BaeMlmh1RbQqh7aa8 3yETog0Z6xSM9 B2CpIVLbmihazRAbsMwbI N8sRPPczfwdAYKobI1nSC KvH0q1PpWnKzF3BUhfH2D lzdL1CHDgpXMn MJukLZF6R05ic1G1IJLqR DOfEPU5iIL2wD4gtDcdqr ogbGVmdDsgdmVydGljYWw yJLjiX027WOJt qFarTMLkeI4jJLGvqXNpp ZcaWQ5sHRGhjnyaTeJUBa 2FWSbnNVxMBV7FTV54Q2T pRym8FXHzpAaf FA1laSYzERgpUn2liTgeq SnpTR1qDTAyseohCSLtqS 3fZIXifJJobCzfKR2sHQX nskkeg745HoUa YMU3XOVnrIHtJ7VqzY0pX wSeVYRsUVCfD0DslSUvVU hlD846OSfzSnL1YNVtghW aY3ZbVECjqVnt PrA2o7E2Mn2jZG9rMi5sO NN6CJ02IU81vVUhj3N2nI O0M2GnWQAudnmixbkrpCP 6NHReEXAkcX77 iYLrDJkgOu2ta4J6h907U MBfAAXqlY85Jn3leZnnSR DycQWOkE8foqzbw2dpfwg gIzAwMDAwMDt0 VIk6UUVycPlxLvGaERN8K qZ7CKF7nNPaoI6ocXblal ainI3uBih+NjYgWWVhcnM 7C8IkAbg4UYQf nAqbTI3neAOtYLtyJj2ft ErzxQtfIQ1nXVUbhyijIU GsaF5wOEEldVZjzDonRM0 aNCXnycgys793 SbKfLTJ1EEOtjHSaW4Vdc G8tLmUzDWBsRHMyO0FedQ SrGVbiM106DJprXsL6QKV uoaPuZ8JvNHYk oNouDdS9i8O7Yz9CDE1dg TN1A7WiFtq7LRQarXktTV 1xvMCoPMxlVr1pnAebyTk aRG5nHIIedkrr YPTgeW5wHZJwcGAxrJpqN H2tYVAcrgzhi718NkXiPO U4BAJyeRObK5KjeQ0tRmY lDLEeVJIpR8Pz bKSeHKjuV176PXtdHdT7N YForqIlM3FrATJbbNfiEn L4i3P8Ke7WPXztRG5dezI nIB9sltN7D6Py PjwvdHI+DM79QWLuLU63v UFetXAvz5flqSo0CjLlCV ElRZM7cFvwVSuva0KaHZJ aO47lxDXjy3D7 NCAuvIxntTMlElOvuYF2v K2tVZfcsupki3ljwwooKk mwq3ncyl66tA94L67zUBc pZHRoPSIzMCUi MEWspWsewh0skQ4yJz9+P JXwxDH0mQZ0fH6cXmGgAf W5HLcqD422TnHnmJYxVyx is1aem3oalXr1 TtZrJTOdyxXpyUboMOS7o 0TaPg69Y65zQGkuKPPrKI HePFCjHFMyqQnmrd5mwM6 wIi8+RC3gt5ro jd00iW66tHP+LURgXXJ3v RmjDObrAUJznJ6pKTbnWs D9MTUaTdTjvK82hQClGKi wUb7kpRurcEth LV8bJEIomrslv120KgAqt 0xiPKBpxVHaJMdvBKS0U6 5of5R4BZDeJPDiTGE9iWH 7vJ3bvEabwpsz bGVmdDsgdmVydGljYWwtY LsiP490USJwgAzeRhChhD ZoC9kvquYVFJ7eAataaUU +YFAyMUU6wApl UGxoHYZdiE2wXVEtK8c0J cVbKnC8ZAacT3QeojF5PT NjbXHhXEBykKGLfN9uomr wg8mkmraxYlBc LJHmQMl0SCe7NYOtiDlbZ kFrDAU2RfV4SBR3sCBxfQ 4cxVidhhyerC4wOal+Rkl OOjwvdGQ+PHRk TCS7eLwfBLavUWPedA6qS QDnL1l0OaBrGgM7NFndD9 YrgnM2ODXjvQYeHRKwzCX ClF5uscnuj9iw tsrlMrQwHACfJGr2KQz3P ABptUroSmIiGSK2KbQ1NB Q6uOEtoJ2roWlmxkerxL9 wOyc+TVJOOjwv dGQ+VSToURC8tKitLSulF QNyhQ0tNMMyG8w4VhTtEk F5ADemY4UygnZ5XCYnyTK mBCBdaSGLnD9s mqvcu8ggzmiuDsKbNAMqC Et9UVo5NXAkiHumTcXnDH B2GaF3OGP1xQIccI6tvQm kpotfcG4pKvi+ HHS3EUZ1QF43YY34D4ZiJ jwvdGFibGU+PHRhYmxlIH dpZHRoPScxMDAlJyBzdHl bSY6dBa6xPNAl LWNv (more content not included)... [facility] Consent for Procedure/Surger yon 03-20-2022 Consent for Procedure/Surgery [id number]#1 .00CD:127 [facility] Consent for Treatmenton Consent for Treatment [id number]# 1.00CD:127 [facility] Discharge Instructionson Discharge Instructions [id number]#1 .00CD:127 [facility] IntraOperative Documentson 0 03-20-2022 IntraOperative Documents [id number]#1 .00CD:127 Normal [facility] IntraOperative Documents [id number]#1 .00CD:127 Normal [facility] Main OR Intraoperative Recor don 03-20-2022 Main OR Intraoperative Record IntraOp Document Type FTPM Summary Primary Physician: Gerald Pham MD Finalized Date/Time: 03/20/22 13:43:47 Pt. Name: AKOSUADARÍOSHELLY/Sex: 1955 Female Med Rec #: [id number] Physician: Gerald Pham MD Financial #: [id number] Pt. Type: P Room/Bed: / Admit/Disch: 03/20/22 13:08:39 - Institution: Case Times FTPM Entry 1 Patient Times In Room 03/20/22 13:34:00 Out Room 03/20/22 13:43:00 Procedure Times Start 03/20/22 13:37:00 Stop 03/20/22 13:42:00 Anesthesia Times Last Modified By: Addis Hernandez RN 03/20/22 13:43:40 Case Attendance FTPM Entry 1 Entry 2 Entry 3 Case Attendee Ankit HUDSON, Gerald Meyer RN, Ananya Moore RN Role Performed Surgeon - Primary Phlebotomy Coordinator - Primary Scrub - Primary Time In 03/20/22 13:34:00 03/20/22 13:34:00 03/20/22 13:34:00 Time Out 03/20/22 13:43:00 03/20/22 13:43:00 03/20/22 13:43:00 Procedure LUMBAR EPIDURAL STEROID LUMBAR EPIDURAL STEROID LUMBAR EPIDURAL STEROID INJECTION(.) INJECTION(.) INJECTION(.) Comments Last Modified By: Mary ROSE, Addis Hernandez RN, Addis Malone RN 03/20/22 13:43:41 03/20/22 13:43:41 03/20/22 13:43:41 Entry 4 Entry 5 Case Attendee Mary ROSE, Ronak Rodriguez Role Performed Staff - Other Ghost Writer Time In 03/20/22 13:34:00 03/20/22 13:34:00 Time Out 03/20/22 13:43:00 03/20/22 13:43:00 Procedure LUMBAR EPIDURAL STEROID LUMBAR EPIDURAL STEROID INJECTION(.) INJECTION(.) Comments Last Modified By: Addis Hernandez RN, RN, Madison A 03/20/22 13:43:41 03/20/22 13:43:41 Perioperative Protocols FTPM Pre-Care Text: Implements protective measures prior to operative or invasive procedure, confirms identity before the operative or invasive procedure, verifies operative procedure, surgical site, and laterality Entry 1 Procedure(s) LUMBAR EPIDURAL STEROID Patient Identity Birthday, ID Band INJECTION(.) Verified (select at Check, Patient least 2): Participation Consents / H and P HandP, Surgery/Procedure Operative Site Present Verified Consent Marking Verified Surgical Site Yes Laterality Verified Yes Verified Procedure Verified Yes Correct Patient Yes Position Verified Availability Equipment, Medication, Prep Dry Yes Verified (If X-ray Applicable) PreOp Antibiotic No Time Out Betsy ROSE, Diane Alva, Given Participants Williams ROSE, Ankit Hare MD, Zachary, Pritchard RN, Jason Padilla Bryce Time Out Complete 03/20/22 13:35:00 Outcomes Met? Yes Last Modified By: Addis Hernandez RN 03/20/22 13:35:12 Post-Care Text: The patient is free from signs and symptoms of injury caused by extraneous objects Allergy Information FTPM Pre-Care Text: Verifies allergies Entry 1 Allergies Reviewed? Yes Allergies Reviewed Self/Patient With Outcomes Met? Yes Last Modified By: Addis Hernandez RN 03/20/22 13:31:05 Post-Care Text: The patient received appropriate medication(s) safely administered during the perioperative period Surgical Procedures FTPM Entry 1 Procedure Description Procedure LUMBAR EPIDURAL STEROID Modifiers . INJECTION Surgeon Description L5-S1 SANJAY Primary Procedure Yes Primary Surgeon Gerald Pham MD Start 03/20/22 13:37:00 Stop 03/20/22 13:42:00 Anesthesia Type None Surgical Service Pain Management Wound Class 1 - Clean Last Modified By: Addis Hernandez RN 03/20/22 13:43:44 General Case Data FTPM Pre-Care Text: Classifies surgical wound, implements aseptic technique, initiates traffic control Entry 1 Case Information OR Pain Proc Room Case Level Level 2 Wound Class 1 - Clean Specialty Pain Management Preop Diagnosis M48.07 Postop Same As Preop Yes Postop Diagnosis M48.07 Outcomes Met? Yes Last Modified By: Addis Hernandez RN 03/20/22 13:35:48 Post-Care Text: The patient is free from signs and symptoms of infection Skin Assessment (Pre Procedure) FTPM Pre-Care Text: Implements protective measures to prevent skin/ tissue injury due to thermal or mechanical sources Evaluates for signs and symptoms of physical injury to skin and tissue Entry 1 Skin Integrity Intact, Basco, Warm, and Skin Abnormality No Dry Outcomes Met? Yes Last Modified By: Addis Hernandez RN 03/20/22 13:31:15 Post-Care Text: The patient is free from signs and symptoms of injury caused by extraneous objects Patient Positioning FTPM Pre-Care Text: Identifies physical alterations that require additional precautions for procedure-specific positioning, verifies presence of prosthetics or corrective devices, positions the patient, evaluates the patient for signs and symptoms of injury as a result of positioning Entry 1 Procedure LUMBAR EPIDURAL STEROID Body Position Prone INJECTION(.) Feet Uncrossed? Yes Left Arm Position Resting at Side Right Arm Position Resting at Side Left Leg Position Extended Right Leg Position Extended Posit (more content not included)... Normal [facility] Main OR Preoperative Recordo n 03-20-2022 Main OR Preoperative Record Holding Area Document Type FTPM Summary Primary Physician: Gerald Pham MD Finalized Date/Time: 03/20/22 13:30:04 Pt. Name: SHELLY HUMPHREYS/Sex: 1955 Female Med Rec #: [id number] Physician: Gerald Pham MD Financial #: [id number] Pt. Type: P Room/Bed: / Admit/Disch: 03/20/22 13:08:39 - Institution: Case Times Holding FTPM Pre-Care Text: Verifies consent for planned procedure, identifies individual values and wishes concerning care, includes family members in perioperative teaching Secures patient's records' belongings, and valuables, maintains patient's dignity and privacy, and maintains patient confidentiality Entry 1 In Holding 03/20/22 13:28:00 Outcomes Met? Yes Last Modified By: Brittnee Blackburn RN 03/20/22 13:28:20 Post-Care Text: The patient participates in decisions affecting his or her perioperative plan of care The patient's right to privacy is maintained Surgery Checklist FTPM Entry 1 Patient Birthday, ID Band Procedure History and Physical, Identification: Check, Patient Verification: Surgical Consent, With Participation Patient NPO after Midnight: No Date/Time: 03/20/22 13:28:00 Results Reviewed 1230 cup of coffee Personal Items: Dentures, Jewelry Comments: Personal Items Pt. wearing a necklace Complaints of Pain: Yes Comment: and upper dentures. Pain Comment: 05/27 RLE and LBP Operative Site Yes Marking: Marked By: Dr. Pham Location: L5-S1 Availability Equipment, X-Ray Verified: Does Patient Smoke Yes If Yes to Smoking. 1 PPD cigarettes Cigars or Cigarettes. How much per day? Patient states No Case Cancelled in No postop adult Holding Area see supervision comments below for available reason Last Modified By: Brittnee Blackburn RN 03/20/22 13:30:02 Finalized By: Brittnee Blackburn RN Document Signatures Signed By: Brittnee Blackburn RN 03/20/22 13:30 Normal [facility] Operative Reporton Operative Report SURGERY DATE: 03/20/2022 PREOPERATIVE DIAGNOSIS: Lumbosacral stenosis POSTOPERATIVE DIAGNOSIS: Lumbosacral stenosis OPERATION: Interlaminar lumbar epidural steroid injection under fluoroscopic guidance at the L5-S1 interspace SOLUTION: 2 mL of lidocaine 2%, 5 mL Normal Saline, and 1 mL of Kenalog 40 mg, 8 mL total; contrast was 2 mg Isovue, local anesthetic was 5 mL of lidocaine 1% ANESTHESIA: Local COMPLICATIONS: None PROCEDURE: After informed consent was obtained the patient was brought to the Operating Room and placed in the prone position. The area in question was prepped and draped in sterile fashion. An AP fluoroscopic view of the lumbosacral spine was obtained and after a local anesthetic as administered into the skin a 17 gauge Tuohy needle was inserted perpendicular to the skin and advanced toward the L5-S1 interspace under intermittent fluoroscopic guidance. The epidural space was identified via loss of resistance to air. Proper needle position was confirmed via AP and lateral fluoroscopy. Contrast was administered under live fluoroscopy in both views and demonstrated appropriate epidural uptake and the absence of any intravascular or intrathecal spread. The local anesthetic steroid solution was injected incrementally. The needle was removed. Bleeding was nil. The patient tolerated the procedure well and was transferred to the Recovery Room in good condition. Gerald Pham M.D. lr Dictated: 03/20/2022 [id number] Transcribed: 03/20/2022 [facility] Comment on above: Result Comment: Elec tronically Signed By: Ankit HUDSON, Gerald\.br\Date and Time Signed: 03/20/22 16:39 EST Patient Correspondenceon Patient Correspondence [id number]#1 .00CD:127 Normal [facility] Workers' Comp Officeon 02-21 Workers' Comp Office [id number]# 2.00CD:127 Normal [facility] Vital Signs Date Time Vital Sign Value Performing Clinician Facility 01-20-2023 13:49-0500 Heart rate 81 /min Barry Neeraj [facility] 01-20-2023 13:49-0500 SaO2% (BldA) [Mass fraction] 98 % Barry Neeraj [facility] 01-20-2023 13:49-0500 Diastolic blood pressure 84 mm[Hg] Barry Neeraj [facility] 01-20-2023 13:49-0500 Mean blood pressure 109 mm[Hg] Barry Neeraj [facility] 01-20-2023 13:49-0500 Systolic blood pressure 160 mm[Hg] Barry Neeraj [facility] 01-20-2023 13:49-0500 Respiratory rate 16 /min Barryyayo Lawner [facility] 01-20-2023 13:43-0500 Diastolic blood pressure 94 mm[Hg] Barry Neeraj [facility] 01-20-2023 13:43-0500 Heart rate 76 /min Barry Neeraj [facility] 01-20-2023 13:43-0500 SaO2% (BldA) [Mass fraction] 98 % Barry Neeraj [facility] 01-20-2023 13:43-0500 Systolic blood pressure 159 mm[Hg] Barry Neeraj [facility] 01-20-2023 13:35-0500 Heart rate 87 /min Barry Neeraj [facility] 01-20-2023 13:35-0500 SaO2% (BldA) [Mass fraction] 98 % Barry Neeraj [facility] 01-20-2023 13:35-0500 Diastolic blood pressure 77 mm[Hg] Barry Neeraj [facility] 01-20-2023 13:35-0500 Mean blood pressure 98 mm[Hg] Barry Neeraj [facility] 01-20-2023 13:35-0500 Systolic blood pressure 140 mm[Hg] Barry Neeraj [facility] 01-20-2023 13:33-0500 Respiratory rate 14 /min Barry Neeraj [facility] 06-24-2022 13:44-0400 Body temperature 98.49 [degF] John Liz MD Work Phone: [facility] 06-24-2022 13:44-0400 Body weight 93.44 kg John Liz MD Work Phone: [facility] 05-09-2022 14:51-0400 Diastolic blood pressure 79 mm[Hg] Gerald Zumbar [facility] 05-09-2022 14:51-0400 Heart rate 90 /min Gerald Zumbar [facility] 05-09-2022 14:51-0400 Mean blood pressure 94 mm[Hg] Gerald Zumbar [facility] 05-09-2022 14:51-0400 Respiratory rate 16 /min Gerald Zumbar [facility] 05-09-2022 14:51-0400 Systolic blood pressure 125 mm[Hg] Gerald Zumbar [facility] 03-20-2022 13:46-0500 Diastolic blood pressure 65 mm[Hg] Gerald Zumbar [facility] 03-20-2022 13:46-0500 Heart rate 89 /min Gerald Zumbar [facility] 03-20-2022 13:46-0500 Mean blood pressure 85 mm[Hg] Gerald Zumbar [facility] 03-20-2022 13:46-0500 Systolic blood pressure 124 mm[Hg] Gerald Zumbar [facility] 03-20-2022 13:37-0500 Diastolic blood pressure 107 mm[Hg] Gerald Zumbar [facility] 03-20-2022 13:37-0500 Heart rate 80 /min Gerald Zumbar [facility] 03-20-2022 13:37-0500 Respiratory rate 14 /min Gerald Zumbar [facility] 03-20-2022 13:37-0500 SaO2% (BldA) [Mass fraction] 98 % Gerald Zumbar [facility] 03-20-2022 13:37-0500 Systolic blood pressure 144 mm[Hg] Gerald Zumbar [facility] 03-20-2022 13:23-0500 Heart rate 82 /min Gerald Zumbar [facility] 03-20-2022 13:23-0500 SaO2% (BldA) [Mass fraction] 96 % Gerald Zumbar [facility] 03-20-2022 13:23-0500 Diastolic blood pressure 85 mm[Hg] Gerald Zumbar [facility] 03-20-2022 13:23-0500 Mean blood pressure 107 mm[Hg] Gerald Zumbar [facility] 03-20-2022 13:23-0500 Systolic blood pressure 149 mm[Hg] Gerald Zumbar [facility] 03-20-2022 13:23-0500 Body temperature 98.06 [degF] Gerald Zumbar [facility] 03-20-2022 13:22-0500 Respiratory rate 12 /min Gerald Zumbar [facility] 01-23-2022 09:24-0500 Diastolic blood pressure 81 mm[Hg] Gerald Zumbar [facility] 01-23-2022 09:24-0500 Heart rate 81 /min Gerald Zumbar [facility] 01-23-2022 09:24-0500 Mean blood pressure 100 mm[Hg] Gerald Zumbar [facility] 01-23-2022 09:24-0500 Respiratory rate 12 /min Gerald Zumbar [facility] 01-23-2022 09:24-0500 Systolic blood pressure 137 mm[Hg] Gerald Zumbar [facility] 11-20-2021 07:59-0400 Diastolic blood pressure 94 mm[Hg] Cezar Coe [facility] 11-20-2021 07:59-0400 Heart rate 76 /min Cezar Coe [facility] 11-20-2021 07:59-0400 Mean blood pressure 115 mm[Hg] Cezar Coe [facility] 11-20-2021 07:59-0400 Systolic blood pressure 158 mm[Hg] Cezar Coe [facility] 11-15-2021 14:24-0400 Diastolic blood pressure 89 mm[Hg] Gerald Zumbar [facility] 11-15-2021 14:24-0400 Heart rate 83 /min Gerald Zumbar [facility] 11-15-2021 14:24-0400 Mean blood pressure 108 mm[Hg] Gerald Zumbar [facility] 11-15-2021 14:24-0400 Respiratory rate 12 /min Gerald Zumbar [facility] 11-15-2021 14:24-0400 Systolic blood pressure 145 mm[Hg] Gerald Zumbar [facility] Encounters Encounter Date Encounter Type Care Provider Facility Start: 01-22-2023 End: 01-22-2023 ambulatory [facility] Facility:[facility] Start: 01-22-2023 End: 01-22-2023 Patient encounter procedure John Liz MD Work Phone: Rheumatology Comment on above: Seropositive rheumat oid arthritis (HCC) (Primary Dx); Medication monitoring encounter Start: 01-20-2023 End: 01-21-2023 ambulatory Barry Pickard Facility:[facility] Start: 01-20-2023 End: 01-20-2023 Pain Management Barry Pickard [facility] Start: 01-17-2023 End: 01-17-2023 ambulatory ADÁN MILLER Facility:[facility] Start: 12-12-2022 Refill John Liz MD Work Phone: Rheumatology Comment on above: Refill Request Start: 11-08-2022 Telephone encounter Yanna De Santiago ala, MD Work Phone: Dermatology Comment on above: Patient Question Start: 11-06-2022 Refill Yanna Brasher MD Work Phone: Dermatology Comment on above: Refill Request Start: 10-28-2022 Telephone encounter John Liz MD Work Phone: Rheumatology Comment on above: Patient Update (Brui sing) Start: 10-01-2022 Telephone encounter John Liz MD Work Phone: Rheumatology Comment on above: Medication Problem Start: 09-25-2022 End: 09-25-2022 ambulatory JOHN MODEL Facility:[facility] Start: 09-25-2022 End: 09-25-2022 Patient encounter procedure John Liz MD Work Phone: Rheumatology Comment on above: Seropositive rheumat oid arthritis (HCC) (Primary Dx); Medication monitoring encounter Start: 08-06-2022 End: 08-06-2022 ambulatory JOHN Facility:[facility] Start: 06-27-2022 End: 06-28-2022 ambulatory YANNA BRASHER Facility:[facility] Start: 06-27-2022 End: 06-27-2022 Patient encounter procedure Yanna Brasher MD Work Phone: Dermatology Comment on above: Psoriasis (Primary D x); Intertrigo Start: 06-26-2022 Telephone encounter John Liz MD Work Phone: Rheumatology Comment on above: Results Start: 06-26-2022 End: 06-27-2022 ambulatory MD Gerald Pham Facility:[facility] Start: 06-24-2022 End: 06-24-2022 ambulatory EULA TYLER Facility:[facility] Start: 06-24-2022 End: 06-24-2022 Patient encounter procedure John Liz MD Work Phone: Rheumatology Comment on above: Bilateral hand swell ing (Primary Dx); Psoriasis Start: 06-19-2022 End: 06-20-[address] ADÁN MILLER . Facility: Start: 05-30-2022 End: 05-31-2022 ambulatory Gerald Pham Facility:[facility] Start: 05-30-2022 End: 05-30-2022 Patient encounter procedure Gerald Pham [facility] Start: 05-14-2022 End: 05-15-[address] ADÁN MILLER . Facility: Start: 05-09-2022 End: 05-10-2022 ambulatory Gerald Pham Facility:[facility] Start: 05-09-2022 End: 05-09-2022 Pain Management Gerald Pham [facility] Start: 04-25-2022 End: 04-26-[address] ADÁN MILLER . Facility: Start: 03-29-2022 End: 03-30-[address] ADÁN MILLER . Facility: Start: 03-20-2022 End: 03-21-2022 ambulatory Gerald Pham Facility:[facility] Start: 03-20-2022 End: 03-20-2022 Pain Management Gerald Pham [facility] Start: 01-23-2022 End: 01-23-2022 Pain Management Gerald Zumbcathleen [facility] Start: 11-20-2021 End: 11-20-2021 Patient encounter procedure Cezar Coe [facility] Start: 11-15-2021 End: 11-15-2021 Pain Management Gerald Pham [facility] Procedures Date Procedure Procedure Detail Performing Clinician Start: 05-09-2022 Epidural injection o f thoracic spine using fluoroscopic guidance Gerald Pham Comment on above: L5-S1 SANJAY- no relief Start: 01-17-2021 Injection of nerve r oot of lumbar spine using fluoroscopic guidance Gerald Pham Comment on above: Right L4 & L5 TFESI- 90-100% relief. 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 (disorder) Gerald Pham Dilation and curetta ge of uterus Gerald Pham Plan of Treatment Date Care Activity Detail Author Start: 12-20-2028 Urine microalbumin profile DTaP,Tdap,Td Vaccine (2 - Td or Tdap) [facility] Start: 01-17-2026 Diabetes Screening Diabetes Screenin [facility] Start: 09-25-2025 DIABETES SCREEN DIABETES SCREEN [facility] Start: 09-25-2025 Diabetes Screening Diabetes Screenin g [facility] Start: 08-06-2025 DIABETES SCREEN DIABETES SCREEN [facility] Start: 06-24-2025 DIABETES SCREEN DIABETES SCREEN [facility] Start: 04-23-2023 End: 01-23-2024 CBC W Auto Differential panel - Blood CBC + DIFF Lab Routine Seropositive rheumatoid arthritis (HCC) Medication monitoring encounter Expected: 04/23/2023, Expires: 01/23/2024 [facility] Work Phone: Comment on above: Expected: 04/23/2023 , Expires: 01/23/2024 Start: 04-23-2023 End: 01-23-2024 Comprehensive metabolic 2000 panel - Serum or Plasma COMP METABOLIC PANEL Lab Routine Seropositive rheumatoid arthritis (HCC) Medication monitoring encounter Expected: 04/23/2023, Expires: 01/23/2024 [facility] Work Phone: Comment on above: Expected: 04/23/2023 , Expires: 01/23/2024 Start: 04-23-2023 End: 01-23-2024 Erythrocyte sedimentation rate SED RATE WESTERGREN Lab Routine Seropositive rheumatoid arthritis (HCC) Medication monitoring encounter Expected: 04/23/2023, Expires: 01/23/2024 [facility] Work Phone: Comment on above: Expected: 04/23/2023 , Expires: 01/23/2024 Start: 12-12-2022 End: 12-13-2023 CBC W Auto Differential panel - Blood CBC + DIFF Lab Routine Seropositive rheumatoid arthritis (HCC) Medication monitoring encounter Expected: 12/12/2022, Expires: 12/13/2023 [facility] Work Phone: Comment on above: Expected: 12/12/2022 , Expires: 12/13/2023 Start: 12-12-2022 End: 12-13-2023 Comprehensive metabolic 2000 panel - Serum or Plasma COMP METABOLIC PANEL Lab Routine Seropositive rheumatoid arthritis (HCC) Medication monitoring encounter Expected: 12/12/2022, Expires: 12/13/2023 [facility] Work Phone: Comment on above: Expected: 12/12/2022 , Expires: 12/13/2023 Start: 12-12-2022 End: 12-13-2023 Erythrocyte sedimentation rate SED RATE WESTERGREN Lab Routine Seropositive rheumatoid arthritis (HCC) Medication monitoring encounter Expected: 12/12/2022, Expires: 12/13/2023 [facility] Work Phone: Comment on above: Expected: 12/12/2022 , Expires: 12/13/2023 Start: 10-18-2022 Influenza vaccination [facility] Start: 09-25-2022 End: 09-26-2023 Comprehensive metabolic 2000 panel - Serum or Plasma [facility] Work Phone: Comment on above: Expected: 09/25/2022 , Expires: 09/26/2023 Start: 09-25-2022 End: 09-26-2023 Erythrocyte sedimentation rate [facility] Work Phone: Comment on above: Expected: 09/25/2022 , Expires: 09/26/2023 Start: 06-26-2022 End: 06-27-2023 CBC W Auto Differential panel - Blood CBC + DIFF Lab Routine Inflammatory arthritis Medication monitoring encounter Expected: 06/26/2022, Expires: 06/27/2023 [facility] Work Phone: Comment on above: Expected: 06/26/2022 , Expires: 06/27/2023 Start: 06-26-2022 End: 08-26-2022 Chronic hepatitis differentiation between hepatitis B and C virus panel - Serum or Plasma HEP REMOTE PANEL BL Lab Routine Inflammatory arthritis Medication monitoring encounter Expected: 06/26/2022, Expires: 08/26/2022 [facility] Work Phone: Comment on above: Expected: 06/26/2022 , Expires: 08/26/2022 Start: 06-26-2022 End: 06-27-2023 Comprehensive metabolic 2000 panel - Serum or Plasma COMP METABOLIC PANEL Lab Routine Inflammatory arthritis Medication monitoring encounter Expected: 06/26/2022, Expires: 06/27/2023 [facility] Work Phone: Comment on above: Expected: 06/26/2022 , Expires: 06/27/2023 Start: 06-26-2022 End: 06-27-2023 Erythrocyte sedimentation rate SED RATE WESTERGREN Lab Routine Inflammatory arthritis Medication monitoring encounter Expected: 06/26/2022, Expires: 06/27/2023 [facility] Work Phone: Comment on above: Expected: 06/26/2022 , Expires: 06/27/2023 Start: 06-24-2022 End: 06-25-2023 C reactive protein [Mass/volume] in Serum or Plasma [facility] Work Phone: Comment on above: Expected: 06/24/2022 , Expires: 06/25/2023 Start: 06-24-2022 End: 08-24-2022 Comprehensive metabolic 2000 panel - Serum or Plasma [facility] Work Phone: Comment on above: Expected: 06/24/2022 , Expires: 08/24/2022 Start: 06-24-2022 End: 08-24-2022 Creatine kinase [Enzymatic activity/volume] in Serum or Plasma [facility] Work Phone: Comment on above: Expected: 06/24/2022 , Expires: 08/24/2022 Start: 06-24-2022 End: 06-25-2023 Cyclic citrullinated peptide IgG Ab [Units/volume] in Serum or Plasma [facility] Work Phone: Comment on above: Expected: 06/24/2022 , Expires: 06/25/2023 Start: 06-24-2022 End: 06-25-2023 Nuclear Ab [Presence] in Serum by Immunoassay [facility] Work Phone: Comment on above: Expected: 06/24/2022 , Expires: 06/25/2023 Start: 06-24-2022 End: 08-24-2022 PROTEIN ELECTROPHORESIS SERUM W/INTERP [facility] Work Phone: Comment on above: Expected: 06/24/2022 , Expires: 08/24/2022 Start: 06-24-2022 End: 06-25-2023 Rheumatoid factor [Units/volume] in Serum or Plasma [facility] Work Phone: Comment on above: Expected: 06/24/2022 , Expires: 06/25/2023 Start: 06-24-2022 End: 08-24-2022 Urate [Mass/volume] in Serum or Plasma [facility] Work Phone: Comment on above: Expected: 06/24/2022 , Expires: 08/24/2022 Start: 02-17-2022 ADVANCE DIRECTIVE DISCUSSION ADVANCE DIRECTIVE DISCUSSION [facility] Start: 02-17-2022 DEPRESSION ASSESSMENT DEPRESSION ASS ESSMENT [facility] Start: 09-28-2020 BONE DENSITY BONE DENSITY [facility] Start: 09-28-2020 Bone Density Screening Bone Density Screening [facility] Start: 09-28-2020 PNEUMOCOCCAL: 65+ (1 - PCV) PNEUMOCOCCAL: 65+ (1 - PCV) [facility] Start: 02-28-2017 Pneumococcal Vaccine : 65+ (2 - PCV) Pneumococcal Vaccine: 65+ (2 - PCV) [facility] Start: 2015 RSV Vaccine (1 - 1-d ose 60+ series) RSV Vaccine (1 - 1-dose 60+ series) [facility] Start: 09-28-2005 SHINGRIX VACCINE (1 of 2) BA GRIX VACCINE (1 of 2) [facility] Start: 09-28-2000 COLOGUARD (FIT-DNA) COLOGUARD (FIT-D NA) [facility] Start: 09-28-2000 Colonoscopy COLONOSCOPY [facility] Start: 09-28-2000 COLORECTAL CANCER SCREENING COLORECTAL CANCER SCREENING [facility] Start: 09-28-[address] COLONOGRAPHY [facility] Start: 09-28-2000 DIABETES SCREEN DIABETES SCREEN [facility] Start: 09-28-2000 FECAL OCCULT BLOOD FECAL OCCULT BLOO D [facility] Start: 09-28-2000 Lipid 1996 panel - S west or Plasma Lipid Screening [facility] Start: 09-28-2000 LIPID SCREEN LIPID SCREEN [facility] Start: 09-28-2000 SIGMOIDOSCOPY SIGMOIDOSCOPY [facility] Start: 1995 Mammography [facility] Start: 09-28-1974 SHINGRIX VACCINE (1 of 2) BA GRIX VACCINE (1 of 2) [facility] Start: 09-28-1974 Urine microalbumin profile [facility] Start: 09-28-1973 HEPATITIS C SCREENING HEPATITIS C SC REENING [facility] Start: 09-28-1961 Pneumococcal Vaccine : 65+ (1 - PCV) Pneumococcal Vaccine: 65+ (1 - PCV) [facility] Start: 09-28-1961 PNEUMOCOCCAL: 65+ (1 - PCV) PNEUMOCOCCAL: 65+ (1 - PCV) [facility] Start: 09-28-1960 COVID-19 VACCINE (#1) COVID-19 VACCI NE (#1) [facility] Start: 03-31-1956 COVID-19 VACCINE (#1) COVID-19 VACCI NE (#1) [facility] CBC W Auto Different ial panel - Blood CBC + DIFF Lab Routine Bilateral hand swelling 06/24/2022 3:03 PM EDT [facility] Work Phone: End: 07-24-2023 Radiologic exam chest 2 views XR CHEST 2V FRONTAL/LAT Radiology Routine Bilateral hand swelling 1 Occurrences starting 06/24/2022 until 07/24/2023 [facility] Work Phone: Comment on above: 1 Occurrences starti ng 06/24/2022 until 07/24/2023 Radiologic exam ches t 2 views XR CHEST 2V FRONTAL/LAT Radiology Routine Bilateral hand swelling 06/24/2022 3:26 PM EDT [facility] Work Phone: [facility] [place] Immunizations Immunization Date Immunization Notes Care Provider Froeign sampson 12-20-2018 influenza virus vaccine, unspecified formulation John Liz MD Work Phone: [facility] 12-18-2018 influenza virus vaccine, live, attenuated, for intranasal use Gerald Zallie [facility] [place] Payers Date Payer Category Payer Worker's Compensation [id number] 2022 Worker's Compensation [id number] 2021 [place] [id number] 2021-Present [phone] [address] [place] [address] Medicaid [id number] 1959 Medicaid [id number] 1959 Medicare [id number] 1955 Unknown [id number] 3 1955 Unknown [id number] 3 1955 Unknown [id number] 3 1955 Unknown [id number] 3 1955 Unknown [id number] 7 1955 Unknown [id number] 7 1955 Unknown [id number] 7 1955 Unknown [id number] 7 1955 Unknown [id number] 7 Social History Date Type Detail Facility Start: 02-15-2021 Tobacco smoking status Heavy t obacco smoker (finding) [facility] Start: 06-23-2022 End: 06-24-2022 Sex Assigned At Female [facility] Tobacco smoking stat [facility] Tobacco smoking consumption unknown [facility] Work Phone: Start: 1955 Sex Assigned At Female [facility] Start: 06-23-2022 End: 06-24-2022 History of Social function [facility] Adult Depression Screening Assessment 2 [facility] Start: 06-23-2022 Gender identity Identifies as female gender (finding) [facility] Start: 06-23-2022 Sexual orientation Heterosexual (criselda rascon) [facility] Functional Status Date Assessment Result Facility 01-20-2023 Functional Status N/A [facility] 05-09-2022 Functional Status N/A [facility] 03-20-2022 Functional Status N/A [facility] 01-23-2022 Functional Status N/A [facility] 11-20-2021 Functional Status N/A [facility] 11-15-2021 Functional Status N/A [facility] Clinical Notes 03-20-2022 to 01-22-2023 John Liz MD - 01/22/2023 2:11 PM ESTTelephone Encounter - John Liz MD - 12/12/2022 9:17 AM EDTTelephone Encounter - Katy Blum - 12/12/2022 8:42 AM Pam Liz MD - 06/24/2022 2:06 PM EDT Note Date & Type Note Facility 01-22-2023 Note HNO ID: [id number] Author: John Liz MD Service: ? 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 work Under stress because of that F/u RA Mild skin psoriasis Prednisone 10 mg/d MTX 6 tabs/week Folic acid Since MOR: She is off Celebrex and Cymbalta Bruising and brain fog improved 90% better with prednisone and mtx Ready to start prednisone taper-hasn't done it yet, was advised last time Would like HCQ addition Not open to biologics No problems with mtx Still has LE edema Will need vein surgery Still lots of fatigue Am stiffness less than 60 min Saw derm-min psoriasis and intertrigo Component Latest Ref Rng AND Units 06/24/2022 08/06/2022 CCP Antibody IgG Qualitative Negative Strong Positive (A) CCP Antibody, IgG <20 Units 78 (H) WSR 0 - 20 mm/hr 21 (H) 18 CRP <0.9 mg/dL 0.5 Rheumatoid Factor <16 IU/mL <10 BABATUNDE Scr Qual Negative Negative CK 42 - 196 U/L 37 (L) Uric Acid 2.5 - 6.6 mg/dL 4.4 Lab 02/08 Hep panel 08/09 Cxr 08/09 Sed Rate, Westergren Date Value Ref Range Status 01/17/2023 12 0 - 20 mm/hr Final 09/25/2022 15 0 - 20 mm/hr Final 08/06/2022 18 0 - 20 mm/hr Final 06/24/2022 21 (H) 0 - 20 mm/hr Final Previous notes: 2 mo ago she developed left index finger followed by right wrist. She had XR showing osteoarthritis. Dr Miller her PCP from [facility] in [place] prescribed prednisone 40 mg/d x 5. Reduced the swelling. Then she had another attack in B hands and she was put on 60 mg/d of prednisone x 5 d and she is on the last day now. She is ok today She developed psoriasis in the past year. She is concerned about PsA Smoker 1 ppd x 40 years No FH of psoriasis and IA FH-pancreatic cancer, colon ca, CAD, DM Outside record- MRI LS and LS sp xr Left hand xr ok Cbc cmp tsh done Current Outpatient Medications Medication Sig predniSONE (DELTASONE) 5 mg tablet Take 2 tablets by mouth once daily. methotrexate 2.5 mg tablet TAKE 6 TABLETS BY MOUTH ONE TIME A WEEK ketoconazole (NIZORAL) 2 % cream APPLY TO AFFECTED AREA TWICE DAILY FOR SKIN FOLDS triamcinolone (KENALOG) 0.025 % ointment Apply to affected area twice daily. For psoriasis folic acid 1 mg tablet Take 1 tablet by mouth once daily. losartan (COZAAR) 100 mg tablet Take 100 mg by mouth once daily. oxybutynin ER (DITROPAN XL) 10 mg 24 hr tablet Take 10 mg by mouth once daily. tiZANidine HCl (ZANAFLEX) 4 mg capsule Take 8 mg by mouth three times daily as needed. HYDROcodone-acetaminophen (NORCO) 5-325 mg per tablet Take 1 tablet by mouth every 8 hours as needed for pain. prn No current facility-administered medications for this visit. ALLERGIES Allergen Reactions Codeine GI Upset Answers submitted by the patient for this visit: Review of Systems Rheumatology (Submitted on 01/15/2023) Fever : No Recent unintentional weight change: No Eye pain: No Eye redness: No Vision Disturbance: No Eye Dryness: No Nosebleeds: No Sores in your mouth: No Trouble Swallowing: No Dry Mouth: No Chest pain: No Leg Swelling: Yes A cough: No Shortness of breath: No Pain with breathing: No Heartburn: No Abdominal pain: No Diarrhea: No Black tarry stools: No Blood in urine: No Pain or burning with urination: No Joint pain or stiffness: Yes Muscle weakness: Yes Muscle aches: Yes Joint swelling: Yes Morning Stiffness in Joints: Yes A rash: No Skin Color Changes: No Hair Loss: No Nail Changes: No Headaches: No Numbness: No Memory Loss: No Swollen Glands: No RAPID 3: DISEASE ACTIVITY: RAPID-3 Weighed Score 06/23/2022 09/23/2022 01/15/2023 RAPID 3 Weighed Score 4.61 (High Severity (HS)) 4.17 (High Severity (HS)) 4.44 (High Severity (HS)) Weighed Score Levels: 0 - 1: Near Remission 1.3 - 2.0: Low Severity 2.3 - 4.0: Moderate Severity 4.3 - 10.0: High Severity PHYSICAL EXAMINATION: General appearance: cushingoid Skin: many bruises and excoriations improved Neck: supple, FROM Lungs: Lungs clear to auscultation. No wheezing, rhonchi, rales Heart: RRR without murmur, Extremities: 1+ edema Musculoskeletal: no synovitis Impression (M05.9) Seropositive rheumatoid arthritis (HCC) (primary encounter diagnosis) Comment: +CCP, neg RF Improved on mtx/prednisone Plan: Continue MTX to 6 tabs/week Decrease prednisone 5 mg/dx 2 weeks, the 2.5 mg/d x 2 weeks Continue folic acid Add HCQ 200 mg bid Discussed medication dosage, usage, goals of therapy, and side effects. (Worsening psoriasis, skin psoriasis, headaches) (Z51.81) Medication monitoring encounter Comment: MTX HCQ Plan Had labs -- q 3 mo See ophthalmology Orders Placed This Encounter CBC + DIFF Standing Status: Future Standing Expiration Date: 01/23/2024 COMP METABOLIC PANEL Standing Status: Future Standing Expiration Da (more content not included)... 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 Under stress because of that F/u RA Mild skin psoriasis Prednisone 10 mg/d MTX 6 tabs/week Folic acid Since MOR: She is off Celebrex and Cymbalta Bruising and brain fog improved 90% better with prednisone and mtx Ready to start prednisone taper-hasn't done it yet, was advised last time Would like HCQ addition Not open to biologics No problems with mtx Still has LE edema Will need vein surgery Still lots of fatigue Am stiffness less than 60 min Saw derm-min psoriasis and intertrigo Component Latest Ref Rng & Units 06/24/2022 08/06/2022 CCP Antibody IgG Qualitative Negative Strong Positive (A) CCP Antibody, IgG <20 Units 78 (H) WSR 0 - 20 mm/hr 21 (H) 18 CRP <0.9 mg/dL 0.5 Rheumatoid Factor <16 IU/mL <10 BABATUNDE Scr Qual Negative Negative CK 42 - 196 U/L 37 (L) Uric Acid 2.5 - 6.6 mg/dL 4.4 Lab 02/08 Hep panel 08/09 Cxr 08/09 Sed Rate, Westergren Date Value Ref Range Status 01/17/2023 12 0 - 20 mm/hr Final 09/25/2022 15 0 - 20 mm/hr Final 08/06/2022 18 0 - 20 mm/hr Final 06/24/2022 21 (H) 0 - 20 mm/hr Final Previous notes: 2 mo ago she developed left index finger followed by right wrist. She had XR showing osteoarthritis. Dr Miller her PCP from [facility] in [place] prescribed prednisone 40 mg/d x 5. Reduced the swelling. Then she had another attack in B hands and she was put on 60 mg/d of prednisone x 5 d and she is on the last day now. She is ok today She developed psoriasis in the past year. She is concerned about PsA Smoker 1 ppd x 40 years No FH of psoriasis and IA FH-pancreatic cancer, colon ca, CAD, DM Outside record- MRI LS and LS sp xr Left hand xr ok Cbc cmp tsh done Current Outpatient Medications Medication Sig predniSONE (DELTASONE) 5 mg tablet Take 2 tablets by mouth once daily. methotrexate 2.5 mg tablet TAKE 6 TABLETS BY MOUTH ONE TIME A WEEK ketoconazole (NIZORAL) 2 % cream APPLY TO AFFECTED AREA TWICE DAILY FOR SKIN FOLDS triamcinolone (KENALOG) 0.025 % ointment Apply to affected area twice daily. For psoriasis folic acid 1 mg tablet Take 1 tablet by mouth once daily. losartan (COZAAR) 100 mg tablet Take 100 mg by mouth once daily. oxybutynin ER (DITROPAN XL) 10 mg 24 hr tablet Take 10 mg by mouth once daily. tiZANidine HCl (ZANAFLEX) 4 mg capsule Take 8 mg by mouth three times daily as needed. HYDROcodone-acetaminophen (NORCO) 5-325 mg per tablet Take 1 tablet by mouth every 8 hours as needed for pain. prn No current facility-administered medications for this visit. ALLERGIES Allergen Reactions Codeine GI Upset Answers submitted by the patient for this visit: Review of Systems Rheumatology (Submitted on 01/15/2023) Fever : No Recent unintentional weight change: No Eye pain: No Eye redness: No Vision Disturbance: No Eye Dryness: No Nosebleeds: No Sores in your mouth: No Trouble Swallowing: No Dry Mouth: No Chest pain: No Leg Swelling: Yes A cough: No Shortness of breath: No Pain with breathing: No Heartburn: No Abdominal pain: No Diarrhea: No Black tarry stools: No Blood in urine: No Pain or burning with urination: No Joint pain or stiffness: Yes Muscle weakness: Yes Muscle aches: Yes Joint swelling: Yes Morning Stiffness in Joints: Yes A rash: No Skin Color Changes: No Hair Loss: No Nail Changes: No Headaches: No Numbness: No Memory Loss: No Swollen Glands: No RAPID 3: DISEASE ACTIVITY: RAPID-3 Weighed Score 06/23/2022 09/23/2022 01/15/2023 RAPID 3 Weighed Score 4.61 (High Severity (HS)) 4.17 (High Severity (HS)) 4.44 (High Severity (HS)) Weighed Score Levels: 0 - 1: Near Remission 1.3 - 2.0: Low Severity 2.3 - 4.0: Moderate Severity 4.3 - 10.0: High Severity PHYSICAL EXAMINATION: General appearance: cushingoid Skin: many bruises and excoriations improved Neck: supple, FROM Lungs: Lungs clear to auscultation. No wheezing, rhonchi, rales Heart: RRR without murmur, Extremities: 1+ edema Musculoskeletal: no synovitis Impression (M05.9) Seropositive rheumatoid arthritis (HCC) (primary encounter diagnosis) Comment: +CCP, neg RF Improved on mtx/prednisone Plan: Continue MTX to 6 tabs/week Decrease prednisone 5 mg/dx 2 weeks, the 2.5 mg/d x 2 weeks Continue folic acid Add HCQ 200 mg bid Discussed medication dosage, usage, goals of therapy, and side effects. (Worsening psoriasis, skin psoriasis, headaches) (Z51.81) Medication monitoring encounter Comment: MTX HCQ Plan Had labs -- q 3 mo See ophthalmology Orders Placed This Encounter CBC + DIFF Standing Status: Future Standing Expiration Date: 01/23/2024 COMP METABOLIC PANEL Standing Status: Future Standing Expiration Date: 01/23/2024 SED RATE WESTERGREN Standing Status: Future Standing Expiration Date: 01/23/2024 Rv 3 mo John Liz MD documented in this encounter [facility] 01-20-2023 Note [id number] [facility] 12-12-2022 Miscellaneous Notes Orders Placed This Encounter CBC + DIFF Standing Status: Future Standing Expiration Date: 12/13/2023 COMP METABOLIC PANEL Standing Status: Future Standing Expiration Date: 12/13/2023 SED RATE WESTERGREN Standing Status: Future Standing Expiration Date: 12/13/2023 methotrexate 2.5 mg tablet Sig: TAKE 6 TABLETS BY MOUTH ONE TIME A WEEK Dispense: 72 tablet Refill: 1 Most recent Rheumatology visit: 09/25/2022 (with John Liz) May need labs Appt 01/22/2023 Recent Office Visits - This Specialty 09/25/2022 Seropositive rheumatoid arthritis (HCC) Rheumatology John Liz MD 06/24/2022 Bilateral hand swelling Rheumatology John Liz MD Upcoming Rheumatology Appointments - Next 365 Days Visit Type Date Time Department [facility] 01/22/2023 1:40 PM [facility] CBC: CBC Latest Ref Rng & Units 08/06/2022 09/25/2022 WBC 3.70 - 11.00 k/uL 17.69(H) 19.38(H) HEMOGLOBIN 11.5 - 15.5 g/dL 14.2 15.4 HEMATOCRIT 36.0 - 46.0 % 43.1 46.6(H) PLATELETS 150 - 400 k/uL 431(H) 454(H) ABS NEUT (ANC) 1.45 - 7.50 k/uL 13.72(H) 16.19(H) ABS LYMPH 1.00 - 4.00 k/uL 2.21 1.81 Vitamin D: None on file in the last 6 months LFT: CMP Latest Ref Rng & Units 08/06/2022 09/25/2022 SODIUM 136 - 144 mmol/L 137 140 POTASSIUM 3.7 - 5.1 mmol/L 4.3 4.6 CHLORIDE 97 - 105 mmol/L 102 102 CO2 22 - 30 mmol/L 28 26 GLUCOSE 74 - 99 mg/dL 118(H) 101(H) BUN 7 - 21 mg/dL 16 15 CREATININE 0.58 - 0.96 mg/dL 0.66 0.62 CALCIUM, TOTAL 8.5 - 10.2 mg/dL 9.8 9.9 AST 13 - 35 U/L 16 24 ALT 7 - 38 U/L 16 28 ALKALINE PHOSPHATASE 34 - 123 U/L 68 72 Hepatic Function: Creatinine: Creatinine Latest Ref Rng & Units 08/06/2022 09/25/2022 CREAT 0.58 - 0.96 mg/dL 0.66 0.62 ESR/CRP: ESR, WSR Latest Ref Rng & Units 08/06/2022 09/25/2022 WSR 0 - 20 mm/hr 18 15 CRP Latest Ref Rng & Units 06/24/2022 CRP <0.9 mg/dL 0.5 Uric Acid: Uric Acid Latest Ref Rng & Units 06/24/2022 URIC ACID 2.5 - 6.6 mg/dL 4.4 Open Standing (Multiple Instance) Lab Orders None Open Future (Single Instance) Lab Orders None documented in this encounter [facility] 11-08-2022 Miscellaneous Notes Patient called in to let Dr. Brasher that the triamcinolone (KENALOG) 0.025 % ointment does not work. Patient wants to know if she can be prescribed something else. ketoconazole (NIZORAL) 2 % cream is working well for the patient. documented in this encounter [facility] 11-07-2022 Miscellaneous Notes Patient last seen 06/2022 RX Ketoconazole Please approve prescription and any additional refills and e-script to designated pharmacy. Thank you, Doreen William documented in this encounter [facility] 10-29-2022 Miscellaneous Notes I called her back and gave her the information. She verbalized understanding and will try going back to 10 mg/day Prednisone. She can try going back tp prednisone 10 mg/d. Glad her bruising is better. MTX higher dose may take longer to wpork John Liz MD Patient called back and I spoke with her. She stopped taking the Celebrex last week, (still taking Prednisone and Cymbalta). Bruising is significantly improving since she's been off the Celebrex. Feet are starting to swell again since she's changed the Prednisone dose to 5 mg/day alternating 10/day. Will forward to provider. I tried to call Shelly today to discuss, left her a VM to give us a call back. Lucinda MONGE, ROSE Last time patient was in the office, there was concern about her bruising. She was told to get blood work done by her PCP and was given some medication to help it. She said it was called Omnicef and it was 600 mg for 10 days. When she picked up her her Celebrex, she was told that Celebrex along with Prednisone and Cymbalta can cause bruising. Patient also wanted to update that her WBC went from 21 to 16. documented in this encounter [facility] 10-02-2022 Miscellaneous Notes Spoke with patient via phone. She is going to try 5 mg and 10 mg every other day alternating. I did tell her that the higher dose of MTX will take few weeks to kick in. She verbalizes understanding. She will call us back if there is no improvement. Left message to call office. Lmtcb Is she talking about steroid taper? Is she on 5 mg/d? She can try 5 mg and 10 mg every other day alternating. Higher dose of MTX will take few weeks to kick in. John Liz MD Pt called to let dr. Liz know since she changed how she takes her medications her feet and ankles are swelling Please call pt [phone] documented in this encounter [facility] 09-25-2022 Note HNO ID: [id number] Author: Jhon Liz MD Service: ? 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 Under stress because of that F/u RA Mild skin psoriasis Prednisone 10 mg/d MTX 4 tabs/week Folic acid Since MOR: 80% better with prednisone and low dose mtx Swelling is much better Has skin bruises Lots of fatigue Fingers lock Am stiffness less than 30 min No problems with mtx Saw derm-min psoriasis and intertrigo Component Latest Ref Rng AND Units 06/24/2022 08/06/2022 CCP Antibody IgG Qualitative Negative Strong Positive (A) CCP Antibody, IgG <20 Units 78 (H) WSR 0 - 20 mm/hr 21 (H) 18 CRP <0.9 mg/dL 0.5 Rheumatoid Factor <16 IU/mL <10 BABATUNDE Scr Qual Negative Negative CK 42 - 196 U/L 37 (L) Uric Acid 2.5 - 6.6 mg/dL 4.4 Lab 08/09 Hep panel 08/09 Cxr 08/09 Previous notes: 2 mo ago she developed left index finger followed by right wrist. She had XR showing osteoarthritis. Dr Miller her PCP from [facility] in [place] prescribed prednisone 40 mg/d x 5. Reduced the swelling. Then she had another attack in B hands and she was put on 60 mg/d of prednisone x 5 d and she is on the last day now. She is ok today She developed psoriasis in the past year. She is concerned about PsA Smoker 1 ppd x 40 years No FH of psoriasis and IA FH-pancreatic cancer, colon ca, CAD, DM Outside record- MRI LS and LS sp xr Left hand xr ok Cbc cmp tsh done Current Outpatient Medications Medication Sig predniSONE (DELTASONE) 10 mg tablet TAKE 1 TABLET BY MOUTH EVERY DAY DULoxetine (CYMBALTA) 60 mg capsule 2 capsules Orally Once a day ketoconazole (NIZORAL) 2 % cream Apply to affected area twice daily. For skin folds triamcinolone (KENALOG) 0.025 % ointment Apply to affected area twice daily. For psoriasis methotrexate 2.5 mg tablet Take 4 tablets by mouth one time a week. folic acid 1 mg tablet Take 1 tablet by mouth once daily. oxybutynin (DITROPAN) 5 mg tablet Take 5 mg by mouth once daily. losartan (COZAAR) 100 mg tablet Take 100 mg by mouth once daily. celecoxib (CELEBREX) 100 mg capsule Take 100 mg by mouth once daily. oxybutynin ER (DITROPAN XL) 10 mg 24 hr tablet Take 10 mg by mouth once daily. tiZANidine HCl (ZANAFLEX) 4 mg capsule Take 8 mg by mouth three times daily as needed. Docusate Sodium 100 mg tab Take by mouth. HYDROcodone-acetaminophen (NORCO) 5-325 mg per tablet Take 1 tablet by mouth every 8 hours as needed for pain. prn No current facility-administered medications for this visit. ALLERGIES Allergen Reactions Codeine GI Upset Answers submitted by the patient for this visit: Review of Systems Rheumatology (Submitted on 09/23/2022) Fever : No Recent Unintentional Weight Change: No Eye Pain: No Eye Redness: No Vision Disturbance: No Eye Dryness: No Nose Bleeds: No Sores in your Mouth: No Trouble Swallowing: No Dry Mouth: No Chest Pain: No Leg Swelling: No A Cough: No Shortness of Breath: No Pain with Breathing: No Heartburn: No Abdominal Pain: No Diarrhea: No Black Tarry Stools: No Blood in Urine: No Pain or Burning with Urination: No Joint Pain or Stiffness: Yes Muscle Weakness: Yes Muscle Aches: Yes Joint Swelling: No Morning Stiffness in Joints: Yes A Rash: No Skin Color Changes: No Hair Loss: No Nail Changes: No Headaches: No Numbness: Yes Memory Loss: No Swollen Glands: No RAPID 3: DISEASE ACTIVITY: RAPID-3 Weighed Score 06/23/2022 09/23/2022 RAPID 3 Weighed Score 4.61 (High Severity (HS)) 4.17 (High Severity (HS)) Weighed Score Levels: 0 - 1: Near Remission 1.3 - 2.0: Low Severity 2.3 - 4.0: Moderate Severity 4.3 - 10.0: High Severity PHYSICAL EXAMINATION: General appearance: cushingoid Skin: many bruises and excoriations Neck: supple, FROM Lungs: Lungs clear to auscultation. No wheezing, rhonchi, rales Heart: RRR without murmur, Abdomen: Abdomen soft, non-tender. 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 Under stress because of that F/u RA Mild skin psoriasis Prednisone 10 mg/d MTX 4 tabs/week Folic acid Since MOR: 80% better with prednisone and low dose mtx Swelling is much better Has skin bruises Lots of fatigue Fingers lock Am stiffness less than 30 min No problems with mtx Saw derm-min psoriasis and intertrigo Component Latest Ref Rng & Units 06/24/2022 08/06/2022 CCP Antibody IgG Qualitative Negative Strong Positive (A) CCP Antibody, IgG <20 Units 78 (H) WSR 0 - 20 mm/hr 21 (H) 18 CRP <0.9 mg/dL 0.5 Rheumatoid Factor <16 IU/mL <10 BABATUNDE Scr Qual Negative Negative CK 42 - 196 U/L 37 (L) Uric Acid 2.5 - 6.6 mg/dL 4.4 Lab 08/09 Hep panel 08/09 Cxr 08/09 Previous notes: 2 mo ago she developed left index finger followed by right wrist. She had XR showing osteoarthritis. Dr Miller her PCP from [facility] in [place] prescribed prednisone 40 mg/d x 5. Reduced the swelling. Then she had another attack in B hands and she was put on 60 mg/d of prednisone x 5 d and she is on the last day now. She is ok today She developed psoriasis in the past year. She is concerned about PsA Smoker 1 ppd x 40 years No FH of psoriasis and IA FH-pancreatic cancer, colon ca, CAD, DM Outside record- MRI LS and LS sp xr Left hand xr ok Cbc cmp tsh done Current Outpatient Medications Medication Sig predniSONE (DELTASONE) 10 mg tablet TAKE 1 TABLET BY MOUTH EVERY DAY DULoxetine (CYMBALTA) 60 mg capsule 2 capsules Orally Once a day ketoconazole (NIZORAL) 2 % cream Apply to affected area twice daily. For skin folds triamcinolone (KENALOG) 0.025 % ointment Apply to affected area twice daily. For psoriasis methotrexate 2.5 mg tablet Take 4 tablets by mouth one time a week. folic acid 1 mg tablet Take 1 tablet by mouth once daily. oxybutynin (DITROPAN) 5 mg tablet Take 5 mg by mouth once daily. losartan (COZAAR) 100 mg tablet Take 100 mg by mouth once daily. celecoxib (CELEBREX) 100 mg capsule Take 100 mg by mouth once daily. oxybutynin ER (DITROPAN XL) 10 mg 24 hr tablet Take 10 mg by mouth once daily. tiZANidine HCl (ZANAFLEX) 4 mg capsule Take 8 mg by mouth three times daily as needed. Docusate Sodium 100 mg tab Take by mouth. HYDROcodone-acetaminophen (NORCO) 5-325 mg per tablet Take 1 tablet by mouth every 8 hours as needed for pain. prn No current facility-administered medications for this visit. ALLERGIES Allergen Reactions Codeine GI Upset Answers submitted by the patient for this visit: Review of Systems Rheumatology (Submitted on 09/23/2022) Fever : No Recent Unintentional Weight Change: No Eye Pain: No Eye Redness: No Vision Disturbance: No Eye Dryness: No Nose Bleeds: No Sores in your Mouth: No Trouble Swallowing: No Dry Mouth: No Chest Pain: No Leg Swelling: No A Cough: No Shortness of Breath: No Pain with Breathing: No Heartburn: No Abdominal Pain: No Diarrhea: No Black Tarry Stools: No Blood in Urine: No Pain or Burning with Urination: No Joint Pain or Stiffness: Yes Muscle Weakness: Yes Muscle Aches: Yes Joint Swelling: No Morning Stiffness in Joints: Yes A Rash: No Skin Color Changes: No Hair Loss: No Nail Changes: No Headaches: No Numbness: Yes Memory Loss: No Swollen Glands: No RAPID 3: DISEASE ACTIVITY: RAPID-3 Weighed Score 06/23/2022 09/23/2022 RAPID 3 Weighed Score 4.61 (High Severity (HS)) 4.17 (High Severity (HS)) Weighed Score Levels: 0 - 1: Near Remission 1.3 - 2.0: Low Severity 2.3 - 4.0: Moderate Severity 4.3 - 10.0: High Severity PHYSICAL EXAMINATION: General appearance: cushingoid Skin: many bruises and excoriations Neck: supple, FROM Lungs: Lungs clear to auscultation. No wheezing, rhonchi, rales Heart: RRR without murmur, Abdomen: Abdomen soft, non-tender. Extremities: no edema Musculoskeletal: no synovitis Impression (M05.9) Seropositive rheumatoid arthritis (HCC) (primary encounter diagnosis) Comment: +CCP, neg RF Improved on mtx/prednisone Plan: CBC + DIFF, COMP METABOLIC PANEL, SED RATE WESTERGREN Labs Increase MTX to 6 tabs/week Decrease prednisone 5 mg/d and taper as tolerated Continue folic acid Refills (Z51.81) Medication monitoring encounter Comment: MTX Plan: CBC + DIFF, COMP METABOLIC PANEL, SED RATE WESTERGREN Rv 3 mo John Liz MD documented in this encounter [facility] 06-27-2022 Note HNO ID: [id number] Author: Yanna Brasher MD Service: ? Author Type: Physician Type: Progress Notes Filed: 06/27/2022 9:37 PM Note Text: New patient Consultation requested by Dr. Liz for an opinion regarding psoriasis. My final recommendations will be communicated back to the requesting physician by way of shared Medical record or letter to requesting physician via [place] mail. CC: rash HPI: Shelly Wilson 66 year old female here for rash. She had irritation under the breasts and had a biopsy and used a cream that made the skin raw and she stopped. No memory of the name or diagnosis. She uses A and D ointment. She now has round scaly spots on the arms and thighs and buttocks. Modest level of itch. She was just diagnosed with RA on Friday by Dr. Liz. She was given MTX 10mg and prednisone. 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 celecoxib (CELEBREX) 100 mg capsule Take 100 mg by mouth once daily. methotrexate 2.5 mg tablet Take 4 tablets by mouth one time a week. folic acid 1 mg tablet Take 1 tablet by mouth once daily. predniSONE (DELTASONE) 10 mg tablet Take 1 tablet by mouth once daily. losartan (COZAAR) 100 mg tablet Take 100 mg by mouth once daily. oxybutynin ER (DITROPAN XL) 10 mg 24 hr tablet Take 10 mg by mouth once daily. tiZANidine HCl (ZANAFLEX) 4 mg capsule Take 8 mg by mouth three times daily as needed. Docusate Sodium 100 mg tab Take by mouth. HYDROcodone-acetaminophen (NORCO) 5-325 mg per tablet Take 1 tablet by mouth every 8 hours as needed for pain. prn PE: Gen: Well appearing female in NAD Neuro: Alert, pleasant, cooperative Tae skin type: II Examination of scalp, face, neck, chest, abdomen, back, bilateral upper and lower extremities including nails was significant for: -waxy forbes stuck on papules on the chest - blanching red papule on the chest Right hip with a well defined red plaque, gluteal cleft with a well defined red plaque Inframammary folds and abdominal fold with red plaques Normal nails Component Latest Ref Rng AND Units 06/24/2022 WBC 3.70 - 11.00 k/uL 21.36 (H) RBC 3.90 - 5.20 m/uL 4.69 Hemoglobin 11.5 - 15.5 g/dL 14.5 Hematocrit 36.0 - 46.0 % 42.2 MCV 80.0 - 100.0 fL 90.0 MCH 26.0 - 34.0 pg 30.9 MCHC 30.5 - 36.0 g/dL 34.4 RDW-CV 11.5 - 15.0 % 12.4 Platelet Count 150 - 400 k/uL 465 (H) MPV 9.0 - 12.7 fL 8.6 (L) NRBC /100 WBC 0.0 Absolute nRBC <0.01 k/uL <0.01 Neut% % 70.0 Abs Neut (ANC) 1.45 - 7.50 k/uL 14.95 (H) Lymph% % 21.0 Abs Lymph 1.00 - 4.00 k/uL 4.49 (H) Obion% % 7.0 Abs Obion <0.87 k/uL 1.50 (H) Eosin% % 0.0 Abs Eosin <0.46 k/uL 0.00 Baso% % 1.0 Abs Baso <0.11 k/uL 0.21 (H) Myelo% % 1.0 Left Shift Present Platelet Estimate Increased Red Cell Morph Reviewed: unremarkable Polychromasia Slight DTYPE Manual Protein, Total 6.3 - 8.0 g/dL 6.8 Albumin 3.9 - 4.9 g/dL 4.0 Calcium 8.5 - 10.2 mg/dL 9.8 Bilirubin, Total 0.2 - 1.3 mg/dL 0.3 Alkaline Phosphatase 34 - 123 U/L 75 AST 13 - 35 U/L 15 ALT 7 - 38 U/L 21 Glucose 74 - 99 mg/dL 62 (L) BUN 7 - 21 mg/dL 17 Creatinine 0.58 - 0.96 mg/dL 0.71 Sodium 136 - 144 mmol/L 138 Potassium 3.7 - 5.1 mmol/L 4.2 Chloride 97 - 105 mmol/L 100 CO2 22 - 30 mmol/L 25 Anion Gap 9 - 18 mmol/L 13 eGFR >=60 mL/min/1.73mA? 94 Albumin 3.43 - 5.41 g/dL 3.51 Alpha 1 Globulin 0.18 - 0.43 g/dL 0.36 Alpha 2 Globulin 0.42 - 0.98 g/dL 1.04 (H) Beta Globulin 0.61 - 1.17 g/dL 0.88 Gamma Globulin 0.53 - 1.51 g/dL 0.71 Interpretation (Prot Electro) No definitive M protein is identified on protein electrophoresis. No definitive M protein is identified on protein electrophoresis. M-Protein Location M-Protein Concentration <=0.00 g/dL 0.00 SPE Staff Review Reviewed by Dr. Joshua Benitez MD CCP Antibody IgG Qualitative Negative Strong Positive (A) CCP Antibody, IgG <20 Units 78 (H) WSR 0 - 20 mm/hr 21 (H) CRP <0.9 mg/dL 0.5 Rheumatoid Factor <16 IU/mL <10 BABATUNDE by EIA, Qual Negative Negative CK 42 - 196 U/L 37 (L) A/P: Shelly Wilson is a 66 year old female with joint pain who was recently diagnosed with rheumatoid arthritis and started on prednisone and methotrexate. She has a few small, focal skin lesions consistent with psoriasis vulgaris, BSA 1% on the hip and gluteal cleft. I feel the rash in the folds under the breasts and abdominal pannus is more consistent with intertrigo associated with obesity. - start triamcinolone 0.025% cream BID M-F - start ketoconazole 2% to the skin folds BID and keep area clean and dry avoid chafing with use of OTC miconazole powder. Will inform Dr. Liz of these impressions, no changes to systemic rheumatologic management sugges (more content not included)... [facility] 06-27-2022 History of Presen t illness Narrative New patient Consultation requested by Dr. Liz for an opinion regarding psoriasis. My final recommendations will be communicated back to the requesting physician by way of shared Medical record or letter to requesting physician via [place] mail. CC: rash HPI: Shelly Wilson 66 year old female here for rash. She had irritation under the breasts and had a biopsy and used a cream that made the skin raw and she stopped. No memory of the name or diagnosis. She uses A and D ointment. She now has round scaly spots on the arms and thighs and buttocks. Modest level of itch. She was just diagnosed with RA on Friday by Dr. Liz. She was given MTX 10mg and prednisone. 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 celecoxib (CELEBREX) 100 mg capsule Take 100 mg by mouth once daily. methotrexate 2.5 mg tablet Take 4 tablets by mouth one time a week. folic acid 1 mg tablet Take 1 tablet by mouth once daily. predniSONE (DELTASONE) 10 mg tablet Take 1 tablet by mouth once daily. losartan (COZAAR) 100 mg tablet Take 100 mg by mouth once daily. oxybutynin ER (DITROPAN XL) 10 mg 24 hr tablet Take 10 mg by mouth once daily. tiZANidine HCl (ZANAFLEX) 4 mg capsule Take 8 mg by mouth three times daily as needed. Docusate Sodium 100 mg tab Take by mouth. HYDROcodone-acetaminophen (NORCO) 5-325 mg per tablet Take 1 tablet by mouth every 8 hours as needed for pain. prn PE: Gen: Well appearing female in NAD Neuro: Alert, pleasant, cooperative Tae skin type: II Examination of scalp, face, neck, chest, abdomen, back, bilateral upper and lower extremities including nails was significant for: -waxy forbes stuck on papules on the chest - blanching red papule on the chest Right hip with a well defined red plaque, gluteal cleft with a well defined red plaque Inframammary folds and abdominal fold with red plaques Normal nails Component Latest Ref Rng & Units 06/24/2022 WBC 3.70 - 11.00 k/uL 21.36 (H) RBC 3.90 - 5.20 m/uL 4.69 Hemoglobin 11.5 - 15.5 g/dL 14.5 Hematocrit 36.0 - 46.0 % 42.2 MCV 80.0 - 100.0 fL 90.0 MCH 26.0 - 34.0 pg 30.9 MCHC 30.5 - 36.0 g/dL 34.4 RDW-CV 11.5 - 15.0 % 12.4 Platelet Count 150 - 400 k/uL 465 (H) MPV 9.0 - 12.7 fL 8.6 (L) NRBC /100 WBC 0.0 Absolute nRBC <0.01 k/uL <0.01 Neut% % 70.0 Abs Neut (ANC) 1.45 - 7.50 k/uL 14.95 (H) Lymph% % 21.0 Abs Lymph 1.00 - 4.00 k/uL 4.49 (H) Obion% % 7.0 Abs Obion <0.87 k/uL 1.50 (H) Eosin% % 0.0 Abs Eosin <0.46 k/uL 0.00 Baso% % 1.0 Abs Baso <0.11 k/uL 0.21 (H) Myelo% % 1.0 Left Shift Present Platelet Estimate Increased Red Cell Morph Reviewed: unremarkable Polychromasia Slight DTYPE Manual Protein, Total 6.3 - 8.0 g/dL 6.8 Albumin 3.9 - 4.9 g/dL 4.0 Calcium 8.5 - 10.2 mg/dL 9.8 Bilirubin, Total 0.2 - 1.3 mg/dL 0.3 Alkaline Phosphatase 34 - 123 U/L 75 AST 13 - 35 U/L 15 ALT 7 - 38 U/L 21 Glucose 74 - 99 mg/dL 62 (L) BUN 7 - 21 mg/dL 17 Creatinine 0.58 - 0.96 mg/dL 0.71 Sodium 136 - 144 mmol/L 138 Potassium 3.7 - 5.1 mmol/L 4.2 Chloride 97 - 105 mmol/L 100 CO2 22 - 30 mmol/L 25 Anion Gap 9 - 18 mmol/L 13 eGFR >=60 mL/min/1.73m 94 Albumin 3.43 - 5.41 g/dL 3.51 Alpha 1 Globulin 0.18 - 0.43 g/dL 0.36 Alpha 2 Globulin 0.42 - 0.98 g/dL 1.04 (H) Beta Globulin 0.61 - 1.17 g/dL 0.88 Gamma Globulin 0.53 - 1.51 g/dL 0.71 Interpretation (Prot Electro) No definitive M protein is identified on protein electrophoresis. No definitive M protein is identified on protein electrophoresis. M-Protein Location M-Protein Concentration <=0.00 g/dL 0.00 SPE Staff Review Reviewed by Dr. Joshua Benitez MD CCP Antibody IgG Qualitative Negative Strong Positive (A) CCP Antibody, IgG <20 Units 78 (H) WSR 0 - 20 mm/hr 21 (H) CRP <0.9 mg/dL 0.5 Rheumatoid Factor <16 IU/mL <10 BABATUNDE by EIA, Qual Negative Negative CK 42 - 196 U/L 37 (L) A/P: Shelly Wilson is a 66 year old female with joint pain who was recently diagnosed with rheumatoid arthritis and started on prednisone and methotrexate. She has a few small, focal skin lesions consistent with psoriasis vulgaris, BSA 1% on the hip and gluteal cleft. I feel the rash in the folds under the breasts and abdominal pannus is more consistent with intertrigo associated with obesity. - start triamcinolone 0.025% cream BID M-F - start ketoconazole 2% to the skin folds BID and keep area clean and dry avoid chafing with use of OTC miconazole powder. Will inform Dr. Liz of these impressions, no changes to systemic rheumatologic management suggested Patient deferred skin biopsy today. She was encouraged to have the outside records sent in for review, especially the skin biopsy 2. Multiple benign lesions, skin cancer screening exam, family history of BCC - reassurance that seborrheic keratoses and venous franklin are benign - sun protection encouraged RTC prn or sooner if something concerning arises. Yanna Brasher MD documented in this encounter [facility] 06-26-2022 Miscellaneous Notes I spoke with the patient and explained the message below from Dr. Liz. She verbalizes understanding of all topics dicussed. I sent MTX 4 tabs/week and folic acid. I sent prednisone 10 mg/d to start as bridge therapy. Can she get labs in 6 weeks? If ok and sje tolerates mtx we may need to increase mtx after. Orders Placed This Encounter CBC + DIFF Standing Status: Future Standing Expiration Date: 06/27/2023 COMP METABOLIC PANEL Standing Status: Future Standing Expiration Date: 06/27/2023 SED RATE WESTERGREN Standing Status: Future Standing Expiration Date: 06/27/2023 Hepatitis Remote Panel Standing Status: Future Standing Expiration Date: 08/26/2022 methotrexate 2.5 mg tablet Sig: Take 4 tablets by mouth one time a week. Dispense: 20 tablet Refill: 2 folic acid 1 mg tablet Sig: Take 1 tablet by mouth once daily. Dispense: 90 tablet Refill: 3 predniSONE (DELTASONE) 10 mg tablet Sig: Take 1 tablet by mouth once daily. Dispense: 30 tablet Refill: 2 John Liz MD Spoke with patient via phone. Explained results and methotrexate. Discussed possible SE/risks/benefits with patient. She agrees to try it. I will send her information in the mail. She said please send Rx to [facility] pharmacy in [place], [place] on [address]. She also notes that her hands are stiff and swollen again. She stopped prednisone Friday (she is out of pills) and the stiffness and swelling came back this morning. Also - she made an appointment to see Derm at [facility]. Her appointment is tomorrow 06/27. 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 Please let her know that her labs show RA. Her best rx would be starting methotrexate. Does she want to do a quick virtual visit to discuss SE/risks and benefits. She can read about it as well and we can send her info to decide alternatively. The following side effects are possible immunosuppression and susceptibility to infection, low CBC counts, nausea, mouth sores, alopecia, liver toxicity, pulmonary toxicity, teratogenic potential and need for control, low risk of hematologic malignancy. Patient understands a need to regular blood tests monitoring (q 6 weeks initially and if stable q 3 mo). Patient understands that he or she needs to abstain form drinking alcohol while on MTX. She is off prednisone now. Are her hands swollen? John Liz MD documented in this encounter [facility] 06-24-2022 Note HNO ID: [id number] Author: John Liz MD Service: ? Author Type: Physician Type: Progress Notes Filed: 06/24/2022 2:50 PM Note Text: Rheumatology CONSULTATION Date of Service: 06/24/2022 Consultation requested by BOYD Bee for an opinion regarding hand swelling. 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 She had XR showing osteoarthritis. Dr Miller her PCP from [facility] in [place] prescribed prednisone 40 mg/d x 5. Reduced the swelling. Then she had another attack in B hands and she was put on 60 mg/d of prednisone x 5 d and she is on the last day now. She is ok today She developed psoriasis in the past year. She is concerned about PsA Smoker 1 ppd x 40 years No FH of psoriasis and IA FH-pancreatic cancer, colon ca, CAD, DM Outside record- MRI LS and LS sp xr Left hand xr ok Cbc cmp tsh done Patient reports No Raynauds, No photosensitivity, No oral sores, No sicca syndrome, No alopecia, No eye inflammation, Yes psoriasis, No inflammatory bowel disease PAST MEDICAL HISTORY Diagnosis Date Back pain Essential hypertension Psoriasis PAST SURGICAL HISTORY Procedure Laterality Date DANDC, DIAG AND/OR THERAPEUTIC REMOVAL GALLBLADDER TONSILLECTOMY AND ADENOIDECTOMY no appendectomy There is no problem list on file for this patient. SH Tobacco 1ppd x 40 yrs Nurse No family history on file. Current Outpatient Medications Medication Sig oxybutynin (DITROPAN) 5 mg tablet Take 5 mg by mouth three times daily. losartan (COZAAR) 100 mg tablet Take 100 mg by mouth once daily. celecoxib (CELEBREX) 100 mg capsule Take 100 mg by mouth twice daily. oxybutynin ER (DITROPAN XL) 10 mg 24 hr tablet Take 10 mg by mouth once daily. tiZANidine HCl (ZANAFLEX) 4 mg capsule Take 8 mg by mouth three times daily as needed. Docusate Sodium 100 mg tab Take by mouth. HYDROcodone-acetaminophen (NORCO) 5-325 mg per tablet Take 1 tablet by mouth every 8 hours as needed for pain. prn No current facility-administered medications for this visit. ALLERGIES Not on File Answers submitted by the patient for this visit: Review of Systems Rheumatology (Submitted on 06/23/2022) Fever : No Recent Unintentional Weight Change: No Eye Pain: No Eye Redness: No Vision Disturbance: No Eye Dryness: No Nose Bleeds: No Sores in your Mouth: No Trouble Swallowing: No Dry Mouth: No Chest Pain: No Leg Swelling: Yes A Cough: No Shortness of Breath: No Pain with Breathing: No Heartburn: No Abdominal Pain: No Diarrhea: No Black Tarry Stools: No Blood in Urine: No Pain or Burning with Urination: No Joint Pain or Stiffness: Yes Muscle Weakness: Yes Muscle Aches: Yes Joint Swelling: Yes Morning Stiffness in Joints: Yes A Rash: Yes Do you have sun sensitive rashes?: No Skin Color Changes: Yes Hair Loss: No Nail Changes: Yes Headaches: No Numbness: Yes Memory Loss: No Swollen Glands: No RAPID 3: DISEASE ACTIVITY: RAPID-3 Weighed Score 06/23/2022 RAPID 3 Weighed Score 4.61 (High Severity (HS)) Weighed Score Levels: 0 - 1: Near Remission 1.3 - 2.0: Low Severity 2.3 - 4.0: Moderate Severity 4.3 - 10.0: High Severity PHYSICAL EXAMINATION: Temp (Src) 98.5 (Left Tympanic) Wt 206 lb (93.4kg) General appearance: Well appearing, alert, in no acute distress Skin: few bruises and excoriations Neck: supple, FROM Back: mild pain to palpation in the LS spine midline. kyphoscoliosis Lungs: Lungs clear to auscultation. No wheezing, rhonchi, rales Heart: RRR without murmur, Abdomen: Abdomen soft, non-tender. No masses, organomegaly Extremities: no edema Musculoskeletal: no synovitis Neuro: Gait normal. Reflexes normal and symmetric. Sensation grossly intact. Impression (M79.89) Bilateral hand swelling (primary encounter diagnosis) Comment: assess for IA-RA, PsA, crystal disease Plan: XR HAND/WRIST SURVEY ARTHRITIS 1V PA BILATERAL, XR FOOT GENERAL 3V AP/LAT/OBL BILATERAL, XR CHEST 2V FRONTAL/LAT, SED RATE WESTERGREN, C-REACTIVE PROTEIN (CRP), RHEUMATOID FACTOR BL, CCP ANTIBODY IGG, BABATUNDE PANEL BLOOD SCRN, CBC + DIFF, COMP METABOLIC PANEL, CK CREATINE KINASE, URIC ACID BLOOD, SPEP Finishing prednisone today Will advise on further rx after labs and xr (L40.9) Psoriasis Comment: exam is not very c/w psoriasis as lesions present more on inverse areas Plan: CONSULT TO DERMATOLOGY Rv 3 mo I spent a total of 55 minutes on the date of the service which included preparing to see the patient, [id number] patient care, completing clinical documentation, obtaining and/or reviewing separately obtained (more content not included)... [facility] 06-24-2022 History of Presen t illness Narrative Images from the original note were not included. Rheumatology CONSULTATION Date of Service: 06/24/2022 Consultation requested by BOYD Bee for an opinion regarding hand swelling. 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 She had XR showing osteoarthritis. Dr Miller her PCP from [facility] in [place] prescribed prednisone 40 mg/d x 5. Reduced the swelling. Then she had another attack in B hands and she was put on 60 mg/d of prednisone x 5 d and she is on the last day now. She is ok today She developed psoriasis in the past year. She is concerned about PsA Smoker 1 ppd x 40 years No FH of psoriasis and IA FH-pancreatic cancer, colon ca, CAD, DM Outside record- MRI LS and LS sp xr Left hand xr ok Cbc cmp tsh done Patient reports No Raynauds, No photosensitivity, No oral sores, No sicca syndrome, No alopecia, No eye inflammation, Yes psoriasis, No inflammatory bowel disease PAST MEDICAL HISTORY Diagnosis Date Back pain Essential hypertension Psoriasis PAST SURGICAL HISTORY Procedure Laterality Date D&C, DIAG AND/OR THERAPEUTIC REMOVAL GALLBLADDER TONSILLECTOMY & ADENOIDECTOMY <AGE 12 no appendectomy There is no problem list on file for this patient. SH Tobacco 1ppd x 40 yrs Nurse No family history on file. Current Outpatient Medications Medication Sig oxybutynin (DITROPAN) 5 mg tablet Take 5 mg by mouth three times daily. losartan (COZAAR) 100 mg tablet Take 100 mg by mouth once daily. celecoxib (CELEBREX) 100 mg capsule Take 100 mg by mouth twice daily. oxybutynin ER (DITROPAN XL) 10 mg 24 hr tablet Take 10 mg by mouth once daily. tiZANidine HCl (ZANAFLEX) 4 mg capsule Take 8 mg by mouth three times daily as needed. Docusate Sodium 100 mg tab Take by mouth. HYDROcodone-acetaminophen (NORCO) 5-325 mg per tablet Take 1 tablet by mouth every 8 hours as needed for pain. prn No current facility-administered medications for this visit. ALLERGIES Not on File Answers submitted by the patient for this visit: Review of Systems Rheumatology (Submitted on 06/23/2022) Fever : No Recent Unintentional Weight Change: No Eye Pain: No Eye Redness: No Vision Disturbance: No Eye Dryness: No Nose Bleeds: No Sores in your Mouth: No Trouble Swallowing: No Dry Mouth: No Chest Pain: No Leg Swelling: Yes A Cough: No Shortness of Breath: No Pain with Breathing: No Heartburn: No Abdominal Pain: No Diarrhea: No Black Tarry Stools: No Blood in Urine: No Pain or Burning with Urination: No Joint Pain or Stiffness: Yes Muscle Weakness: Yes Muscle Aches: Yes Joint Swelling: Yes Morning Stiffness in Joints: Yes A Rash: Yes Do you have sun sensitive rashes?: No Skin Color Changes: Yes Hair Loss: No Nail Changes: Yes Headaches: No Numbness: Yes Memory Loss: No Swollen Glands: No RAPID 3: DISEASE ACTIVITY: RAPID-3 Weighed Score 06/23/2022 RAPID 3 Weighed Score 4.61 (High Severity (HS)) Weighed Score Levels: 0 - 1: Near Remission 1.3 - 2.0: Low Severity 2.3 - 4.0: Moderate Severity 4.3 - 10.0: High Severity PHYSICAL EXAMINATION: Temp (Src) 98.5 (Left Tympanic) Wt 206 lb (93.4kg) General appearance: Well appearing, alert, in no acute distress Skin: few bruises and excoriations Neck: supple, FROM Back: mild pain to palpation in the LS spine midline. kyphoscoliosis Lungs: Lungs clear to auscultation. No wheezing, rhonchi, rales Heart: RRR without murmur, Abdomen: Abdomen soft, non-tender. No masses, organomegaly Extremities: no edema Musculoskeletal: no synovitis Neuro: Gait normal. Reflexes normal and symmetric. Sensation grossly intact. Impression (M79.89) Bilateral hand swelling (primary encounter diagnosis) Comment: assess for IA-RA, PsA, crystal disease Plan: XR HAND/WRIST SURVEY ARTHRITIS 1V PA BILATERAL, XR FOOT GENERAL 3V AP/LAT/OBL BILATERAL, XR CHEST 2V FRONTAL/LAT, SED RATE WESTERGREN, C-REACTIVE PROTEIN (CRP), RHEUMATOID FACTOR BL, CCP ANTIBODY IGG, BABATUNDE PANEL BLOOD SCRN, CBC + DIFF, COMP METABOLIC PANEL, CK CREATINE KINASE, URIC ACID BLOOD, SPEP Finishing prednisone today Will advise on further rx after labs and xr (L40.9) Psoriasis Comment: exam is not very c/w psoriasis as lesions present more on inverse areas Plan: CONSULT TO DERMATOLOGY Rv 3 mo I spent a total of 55 minutes on the date of the service which included preparing to see the patient, [id number] patient care, completing clinical documentation, obtaining and/or reviewing separately obtained history, performing a medically appropriate examination, counseling and educating the patient/family/caregiver, and ordering medications, tests, or procedures. documented in this encounter [facility] 05-11-2022 Note HOSPITAL REGULATIONS : All Positive and Important Negative Findings Shall Be Recorded Date of Consultation: 05/09/2022 Attending Physician: Adán Miller M.D. Consulting Physician: Gerald Pham M.D. CHIEF COMPLAINT: Low back and leg pain. HISTORY OF PRESENT ILLNESS: This is a 66 year old female seen for a chief complaint of low back and leg pain. She rates her symptoms as a 5/10 and describes it as a sharp sensation. She states it goes down both legs into the tops of both feet. The right is the worst but the left has become more bothersome recently. At her last visit she underwent a L5-S1 epidural steroid injection. She reports some relief but not as much as after the first injection. She reports that the pain is severe and limits her function. She would still like to hold off on back surgery if she can help it. She denies new neurologic symptoms or issues with bladder or bowel control. PAST MEDICAL, PSYCHOSOCIAL, FAMILY HISTORY, ALONG WITH MEDICATIONS AND ALLERGIES is available and was reviewed. PHYSICAL EXAMINATION: General: She is a pleasant white female. Vital signs: Vital signs including blood pressure, heart rate and respirations are stable. Head: Head is normocephalic and external ears are normal. Neck: Neck is supple with no lesions. Cardiovascular: No signs of poor perfusion. No peripheral edema. Lungs: Breathing is unlabored. There is no wheezing present. Abdomen: Abdomen is soft and non-distended. Back: There is no lumbar tenderness. Musculoskeletal: Strength is 5/5. Muscle tone is normal. She has a positive straight leg raise bilaterally. Neurologic: Sensation is intact throughout. Her reflexes are diminished but symmetric. Psychiatric: Affect is appropriate and she is alert and oriented. ASSESSMENT:This is a 66 year old female seen for a chief complaint of low back and bilateral leg pain. Her diagnosis is spinal stenosis of the lumbosacral region. I reviewed her magnetic resonance imaging from two years ago which showed severe right-sided stenosis at the L4-5 foramen. I reviewed an [place] [employer] [facility] report on her which was benign. Her COLLETTE was 30. PLAN: I addressed options with her and since she is now having left-sided symptoms which are also attributable to the L5 nerve root and she has not had imaging in 2 years we will obtain a new lumbar magnetic resonance imaging to evaluate for worsening stenosis at the L5-S1 level. Since she did not get nearly as much benefit from an interlaminar injection we could consider a bilateral L5 transforaminal injection, however, before we decide on that I think the new imaging is necessary and if it has gotten a lot more severe we may need to have her re-consult with Spine Surgery. I went over the pros and cons of this plan and she was in agreement with it. She will continue with the exercises as well as her pain medications in the interim and I will see her for follow up after the magnetic resonance imaging for a repeat evaluation. Over 30 minutes was spent caring for the patient in total. Gerald Pham M.D. lr Dictated: 05/09/2022 [id number] Transcribed: 05/10/2022 cc:Adán Miller M.D. [facility] Comment on above: Result Comment: Elec tronically Signed By: Ankit HUDSON, Gerald\.br\Date and Time Signed: 05/11/22 18:51 EDT 03-20-2022 Note [id number]:127 [facility] Evaluation + Plan note Future Appointments Appointment Date:11/20/2021 08:00:00 AM Scheduled Provider:Cezar Coe MD Location:[facility] Appointment Type:Spine - Worker's Comp New (FT) [facility] Evaluation + Plan note Future Appointments Appointment Date:05/09/2022 02:30:00 PM Scheduled Provider:Gerald Pham MD Location:[facility] [place] Appointment Type:Pain Management - Follow Up (FT) [facility] Evaluation + Plan note Future Appointments Appointment Date:06/26/2022 11:15:00 AM Scheduled Provider:Gerald Pham MD Location:[facility] [place] Appointment Type:Pain Management - Workmans Comp Follow U [facility] Evaluation + Plan note Future Appointments Appointment Date:02/21/2023 03:15:00 PM Scheduled Provider:Nyasia Helton PA-C Location:[facility] [place] Appointment Type:Pain Management - Follow Up () [facility] Evaluation note Diagnosis Bilateral hand swelling- Primary Psoriasis Other psoriasis documented in this encounter [facility] note* Diagnosis 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 Medication monitoring encounter Encounter for therapeutic drug monitoring documented in this encounter [facility] note* Diagnosis Psoriasis- Primary Other psoriasis Intertrigo Other specified erythematous condition documented in this encounter [facility] note* Diagnosis Seropositive rheumatoid arthritis (HCC)- Primary Rheumatoid arthritis Medication monitoring encounter Encounter for therapeutic drug monitoring documented in this encounter [facility] note* Diagnosis Seropositive rheumatoid arthritis (HCC)- Primary Rheumatoid arthritis Medication monitoring encounter Encounter for therapeutic drug monitoring [facility] N[facility] No data available for this section [facility] No data available for this section [facility] No data available for this section [facility] Reason for Referral Specialty Diagnoses / Procedures Referred By Contac t Referred To Contact Dermatology Diagnoses Psoriasis Procedures CONSULT TO DERMATOLOGY OFFICE/OUTPATIENT NEW HIGH MDM 60-74 MINUTES John Liz MD [address] [place] [address] Referral ID Status Reason Start Date Expiration Date Visits Requested Visits Authorized [id number] Authorized PCP Requested Referral 06/24/2022 06/24/2023 1 1 Specialty Diagnoses / Procedures Referred By Contac t Referred To Contact XR IMAGING Diagnoses Bilateral hand swelling Procedures XR FOOT GENERAL 3V AP/LAT/OBL BILATERAL RADEX FOOT COMPLETE MINIMUM 3 VIEWS John Liz MD [address] [place] [address] Xr Imaging Referral ID Status Reason Start Date Expiration Date V isits Requested Visits Authorized [id number] Closed Auto-Generate d Referral 06/24/2022 07/24/2023 1 1 Specialty Diagnoses / Procedures Referred By Contac t Referred To Contact XR IMAGING Diagnoses Bilateral hand swelling Procedures XR HAND/WRIST SURVEY ARTHRITIS 1V PA BILATERAL JOINT SURVEY SINGLE VIEW 2 OR MORE JOINTS John Liz MD [address] [place] [address] Xr Imaging Referral ID Status Reason Start Date Expiration Date V isits Requested Visits Authorized [id number] Closed Auto-Generate d Referral 06/24/2022 07/24/2023 1 1 Summary Purpose Family History No Family History Records Found No data available for this section No Family History Records FoundNo Family History Records Found Advance Directives No Advanced Directives Records FoundNo Advanced Directives Records FoundNo Advanced Directives Records Found Additional Source Comments Care Team (unrecognized sect ion and content) Phlebotomy Manager Relationship Specialty Start Date End Date Eula Tyler [address] [facility] [address] [place] [address] PCP - General Family Medicine 06/21/22 Eula Tyler [address] [place] [address] Referring Family Medicine 06/21/22 Phlebotomy Manager Relationship Specialty Start Date End Date Eula Tyler [address] [place] [address] PCP - General Family Medicine 06/21/22 Eula Tyler [address] [place] [address] Referring Family Medicine 06/21/22 Phlebotomy Manager Relationship Specialty Start Date End Date Eula Tyler [address] [place] [address] PCP - General Family Medicine 06/21/22 Eula Tyler [address] [place] [address] Referring Family Medicine 06/21/22 Phlebotomy Manager Relationship Specialty Start Date End Date Eula Tyler [address] [place] [address] PCP - General Family Medicine 06/21/22 Eula Tyler [address] [place] [address] Referring Family Medicine 06/21/22 Phlebotomy Manager Relationship Specialty Start Date End Date Eula Tyler [address] [place] [address] PCP - General Family Medicine 06/21/22 Eula Tyler [address] [place] [address] Referring Family Medicine 06/21/22 Phlebotomy Manager Relationship Specialty Start Date End Date Eula Tyler PA [address] [place] [address] PCP - General Family Medicine 06/21/22 Eula Tyler PA [address] [place] [address] Referring Family Medicine 06/21/22 Phlebotomy Manager Relationship Specialty Start Date End Date Eula Tyler PA [address] [place] [address] PCP - General Family Medicine 06/21/22 Eula Tyler PA [address] [place] [address] Referring Family Medicine 06/21/22 Phlebotomy Manager Relationship Specialty Start Date End Date Eula Tyler PA [address] [place] [address] PCP - General Family Medicine 06/21/22 Eula Tyler PA [address] [place] [address] Referring Family Medicine 06/21/22 Phlebotomy Manager Relationship Specialty Start Date End Date Eula Tyler PA [address] [place] [address] PCP - General Family Medicine 06/21/22 Eula Tyler PA [address] [place] [address] Referring Family Medicine 06/21/22 Phlebotomy Manager Relationship Specialty Start Date End Date Adán Miller MD [address] [place] [address] PCP - General Family Medicine 01/17/23 Eula Tyler PA [address] [address] [place] [address] Referring Family Medicine 06/21/22 Source Comments (unrecognize d section and content) In the event this informatio n is protected by the Federal Confidentiality of Alcohol and Drug Abuse Patient Records regulations: The Federal rules restrict any use of the information to criminally investigate or prosecute any alcohol or drug abuse patient.[facility] the event this information is protected by the Federal Confidentiality of Alcohol and Drug Abuse Patient Records regulations: The Federal rules restrict any use of the information to criminally investigate or prosecute any alcohol or drug abuse patient.[facility] the event this information is protected by the Federal Confidentiality of Alcohol and Drug Abuse Patient Records regulations: The Federal rules restrict any use of the information to criminally investigate or prosecute any alcohol or drug abuse patient.[facility] the event this information is protected by the Federal Confidentiality of Alcohol and Drug Abuse Patient Records regulations: The Federal rules restrict any use of the information to criminally investigate or prosecute any alcohol or drug abuse patient.[facility] the event this information is protected by the Federal Confidentiality of Alcohol and Drug Abuse Patient Records regulations: The Federal rules restrict any use of the information to criminally investigate or prosecute any alcohol or drug abuse patient.[facility] the event this information is protected by the Federal Confidentiality of Alcohol and Drug Abuse Patient Records regulations: The Federal rules restrict any use of the information to criminally investigate or prosecute any alcohol or drug abuse patient.[facility] the event this information is protected by the Federal Confidentiality of Alcohol and Drug Abuse Patient Records regulations: The Federal rules restrict any use of the information to criminally investigate or prosecute any alcohol or drug abuse patient.[facility] the event this information is protected by the Federal Confidentiality of Alcohol and Drug Abuse Patient Records regulations: The Federal rules restrict any use of the information to criminally investigate or prosecute any alcohol or drug abuse patient.[facility] the event this information is protected by the Federal Confidentiality of Alcohol and Drug Abuse Patient Records regulations: The Federal rules restrict any use of the information to criminally investigate or prosecute any alcohol or drug abuse patient.[facility] the event this information is protected by the Federal Confidentiality of Alcohol and Drug Abuse Patient Records regulations: The Federal rules restrict any use of the information to criminally investigate or prosecute any alcohol or drug abuse patient.[facility] Reason for Visit (unrecogniz ed section and content) Reason Comments New Patient Reason Comments Results Reason Comments Full Body Skin Check Psoriasis/ blisters sparatic on the body Reason Comments Established Patient Reason Comments Medication Problem Reason Comments Patient Update Bruising Reason Comments Refill Request Reason Comments Patient Question INFORMATION SOURCE (unrecogn ized section and content) DATE CREATED AUTHOR 06/27/2022 Yue Ch[facility] DATE CREATED AUTHOR AUTHOR'S ORGANIZ ATION 01/25/2023 [facility] DATE CREATED AUTHOR AUTHOR'S ORGANIZ ATION 01/30/2023 [facility] FOR RECORDS PERTAINING TO PATIENTS WHO ARE OR HAVE BEEN ENROLLED IN A CHEMICAL DEPENDENCY/SUBSTANCEABUSE PROGRAM, SOME INFORMATION MAY BE OMITTED. This clinical summary was aggregated from multiple sources. Caution should be exercised in using it in the provision of clinical care. This summary normalizes information from multiple sources, and as a consequence, information in this document may materially change the coding, format and clinical context of patient data. In addition, data may be omitted in some cases. CLINICAL DECISIONS SHOULD BE BASED ON THE PRIMARY CLINICAL RECORDS. [facility]. provides no warranty or guarantee of the accuracy or completeness of information in this document.
[2023-02-08 14:43] VITALS: BP 138/84; PULSE 95; RESP 22; TEMP 36.7; O2SAT 97; BMI 39.3
[2023-02-08 14:52] VITALS: O2SAT 97
--- NOTE | 2023-02-08 14:59 | ED.URI1 ---
HPI - URI/Sore Throat General Chief Complaint: Upper Respiratory Infection Stated Complaint: urti Time Seen by Provider: 02/08/23 14:45 Source: patient Limitations: no limitations History of Present Illness HPI Narrative: 76-year-old female presents for upper respiratory infection symptoms. She's had a cough but no fever and she wants to get on an antibiotic because she is going to be around family members and they want her seen. They also want her treated. No hemoptysis or vomiting or complaints of chest pain. Related Data Home Medications Medication Instructions Recorded Confirmed hydrocodone 5 mg-acetaminophen 325 1 tab PO Q8H PRN pain 02/08/23 02/08/23 mg tablet hydroxychloroquine 200 mg tablet 200 mg PO BID 02/08/23 02/08/23 losartan 100 mg tablet 100 mg PO DAILY 02/08/23 02/08/23 methotrexate sodium 2.5 mg tablet 15 mg PO .weekly 02/08/23 02/08/23 oxybutynin chloride 5 mg tablet 5 mg PO Q12H 02/08/23 02/08/23 prednisone 5 mg tablet 5 mg PO DAILY 02/08/23 02/08/23 tizanidine 4 mg tablet 8 mg PO .qhs 02/08/23 02/08/23 Previous Rx's Medication Instructions Recorded doxycycline hyclate 100 mg capsule 100 mg PO BID 10 days #20 caps 02/08/23 Allergies Allergy/AdvReac Type Severity Reaction Status Date / Time No Known Drug Allergies Allergy Verified 02/08/23 14:43 Review of Systems ROS Narrative A ten point review of systems is negative except as noted above. PFSH PFSH Social History Smoking status: Current every day smoker Exam Narrative Exam Narrative: Nurses note and vital signs reviewed and patient is not hypoxic. General: The patient appears well and in no apparent distress. Patient is resting comfortably on cart. Skin: Warm, dry, no pallor noted. There is no rash noted. Head: Normocephalic, atraumatic Eye: Normal conjunctiva, no drainage Ears, Nose, Mouth, and Throat: oral mucosa is moist. Nares patent. Cardiovascular: Regular Rate and Rhythm Respiratory: Patient is in no distress, no accessory muscle use, lungs are clear to auscultation, no wheezing, rales or rhonchi Back: non-tender GI: soft and nontender Musculoskeletal: The patient has no evidence of calf tenderness, no pitting edema, symmetrical pulses noted bilaterally Neurological: A&O, normal speech Psychiatric: Cooperative Constitutional Vital Signs, click to edit/add: Last Vital Signs Temp 98.1 F 02/08/23 14:43 Pulse 95 H 02/08/23 14:43 Resp 22 02/08/23 14:43 BP 138/84 02/08/23 14:43 Pulse Ox 97 02/08/23 14:52 O2 Del Method Room Air 02/08/23 14:52 Course Vital Signs Vital signs: Vital Signs Temperature 98.1 F 02/08/23 14:43 Pulse Rate 95 H 02/08/23 14:43 Respiratory Rate 22 02/08/23 14:43 Blood Pressure 138/84 02/08/23 14:43 Pulse Oximetry 97 02/08/23 14:43 Oxygen Delivery Method Room Air 02/08/23 14:43 Temperature 98.1 F 02/08/23 14:43 Pulse Rate 95 H 02/08/23 14:43 Respiratory Rate 22 02/08/23 14:43 Blood Pressure 138/84 02/08/23 14:43 Pulse Oximetry 97 02/08/23 14:52 Oxygen Delivery Method Room Air 02/08/23 14:52 MDM - URI/Sore Throat MDM Narrative Medical decision making narrative: she was offered a Covid test but refuses because she doesn't believe and Covid. She was offered an influenza test but doesn't want one. She just wants an antibiotic. advised that she could still be contagious to her family members. Differential Diagnosis Differential diagnosis: Likely upper respiratory infection, influenza and other (Covid) Discharge Plan Discharge Chief Complaint: Upper Respiratory Infection Clinical Impression: Upper respiratory infection Patient Disposition: Home, Self-Care Time of Disposition Decision: 14:58 Condition: Good Mode of Transportation: Private Vehicle Prescriptions / Home Meds: New doxycycline hyclate 100 mg capsule 100 mg PO BID 10 Days Qty: 20 0RF No Action hydrocodone-acetaminophen 5-325 mg tablet 1 tab PO Q8H PRN (Reason: pain) hydroxychloroquine 200 mg tablet 200 mg PO BID losartan 100 mg tablet 100 mg PO DAILY methotrexate sodium 2.5 mg tablet 15 mg PO .weekly oxybutynin chloride 5 mg tablet 5 mg PO Q12H tizanidine 4 mg tablet 8 mg PO .qhs prednisone 5 mg tablet 5 mg PO DAILY Instructions: Upper Respiratory Infection (ED) Stand Alone Forms: Portal Instructions Referrals: Ajith Miller MD [Primary Care Provider] - 1 week
== END 2023-02-08 15:06 | disposition home or self-care (01) ==
PROVIDERS: Emergency Provider Emergency Medicine; PCP Family Medicine
DX: J06.9 Acute upper respiratory infection, unspecified (principal); Z79.899 Other long term (current) drug therapy; F17.210 Nicotine dependence, cigarettes, uncomplicated
CPT/HCPCS: 99283

== ENCOUNTER 2023-02-13 14:29 | Outpatient (OUT) | payer MEDICARE, MEDICAID, SELFPAY ==
--- NOTE | 2023-02-13 14:31 | VEIN_ITS ---
Patient Name: DAVION HUMPHREYS MR#: [id number] : 1955 Exam Date: 02/13/2023 Ordering Doctor: DR Ajith Miller . RADIOLOGY REPORT PROCEDURE: [facility] - OFFICE VISIT INITIAL COMPARISON: None. PROGRESS NOTES: [age] year old female who presents with a 1 year history of bilateral lower extremity pain, swelling, muscle cramping, aching. The patient's lower extremity symptoms are symmetric bilaterally. There has been a progression of symptoms over past year. This increases with prolonged leg dependency. The patient describes an improvement with rest, elevation, support stockings, and [id number] medication. The patient denies any signs and symptoms to suggest arterial ischemia. The patient describes a family history diabetes, hypertension, varicose veins. The patient has drinking and smoking history of current smoker; no alcohol consumption. Patient has a past medical history significant for varicose veins, hypertension, rheumatoid arthritis. The patient denies a history of deep venous thrombus or pulmonary embolus. See separate history and physical for medication list. No prior treatment for varicose or spider veins. Current long-term use of compression stockings. After review of nurse notes, history and physical exam I discussed at length the pathophysiology of venous hypertension and possible treatments, therapies and strategies available. We discussed at length the importance of elevating the lower extremities above the level of the heart, increased physical activity and compression stocking use. Ultrasound venous reflux study performed on January 16, 2023 was discussed at length with the patient. The report demonstrates abnormal reflux within the right and left great saphenous veins with only mild abnormal dilation of the proximal segment bilaterally. Abnormal reflux is seen within the small saphenous vein bilaterally and the left anterior accessory saphenous vein but vein diameters remain within normal limits. PHYSICAL EXAM: The right leg demonstrates a few varicosities, several spider veins, no ulceration, moderate edema, no significant skin discoloration. The left leg demonstrates a few varicosities, several spider veins, no ulceration, moderate edema, no significant skin discoloration. Both thighs, legs and feet were symmetrically warm to the touch. Good posterior tibial and dorsalis pedis pulses were present bilaterally. VEIN/[facility] IMPRESSION: 1. Bilateral lower extremity venous insufficiency but only mild abnormal dilation 2. Bilateral lower extremity varicose veins 3. Moderate bilateral lower extremity subcutaneous edema 4. No flow significant arterial disease 5. CEAP: C3, EC, , [place] PLAN: 1. Continued use of compression stockings 2. Elevated legs and increased physical activity symptomatic relief 3. Endovenous laser ablation of proximal segments of the right and left great saphenous veins followed by microfoam chemical ablation of remainder of right and left great saphenous veins and incompetent branch saphenous varicosities. This may help with patient's ongoing pain and edema, but given the patient's mild vein disease this is not urgent. Patient will follow-up with the vein center when she is ready for treatment. Nurse notes, history and physical were reviewed and confirmed, see attached forms. The nurse was present throughout the physical exam and consultation Dictated by: Levi Alvarez M.D. on 02/13/2023 at 15:18 Approved by: Levi Alvarez M.D. on 02/13/2023 at 15:28
--- OUTSIDE RECORDS SUMMARY | 2023-02-13 14:32 | XMS_ITS | CCD ---
Author Name Unknown Address [address] [place] [address] Organization [facility] Care Team Providers Care 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 Name Role Phone Adán Miller Primary Care Physician [phone] Eula Tyler Unavailable Eula Tyler Primary Care Provider DAI ., DR MCCAIN Primary Care Unavailable HOY ., DR MCCAIN Admitting Unavailable HOY ., DR MCCAIN Attending Unavailable HOY ., DR MCCAIN Consulting Unavailable [facility] JANNA Consulting Unavailable HOY ., DR MCCAIN Primary Care Unavailable HOY ., DR MCCAIN Admitting Unavailable HOY ., DR MCCAIN Attending Unavailable HOY ., DR MCCAIN Consulting Unavailable HOY ., DR MCCAIN Consulting Unavailable HOY ., DR MCCAIN Primary Care Unavailable HOY ., DR MCCAIN Admitting Unavailable HOY ., DR MCCAIN Attending Unavailable PINEY VIEW, DR WADE Lozada Consulting Unavailable HOY ., DR MCCAIN Consulting Unavailable HOY ., DR MCCAIN Primary Care Unavailable HOY ., DR MCCAIN Admitting Unavailable HOY ., DR MCCAIN Attending Unavailable YESENIA, DR SOFIE Shepherd Consulting Unavailable Eula Tyler Unavailable Eula Tyler Primary Care Provider Eula Vital Unavailable Eula Vital Primary Care Provider Adán Miller MD Primary Care Provider [phone] EULA TYLER Primary Care Unavailable MODEL, JOHN Referring Unavailable EULA TYLER Primary Care Unavailable MODEL, JOHN Referring Unavailable MODEL, JOHN Attending Unavailable EULA TYLER Referring Unavailable EULA TYLER Primary Care Unavailable ADÁN MILLER Primary Care Unavailable MODEL, JONH Attending Unavailable ADÁN MILLER Primary Care Unavailable [...] Codeine; Translations: [CODEINE] Drug Allergy 06-27-2022 [facility] Repository (8 sources) Codeine Drug Allergy 06-27-2022 GI Upset [facility] Medications Current Medications Medication Drug Class(es) Dates Sig (Normalized) Sig (Original) acetaminophen 325 mg / HYDROcodone bitartrate 5 mg oral tablet (17 sources) Opioid Agonist Start: 03-03-2019 take 1 tablet by mouth three times daily acetaminophen-hyd rocodone 325 mg-5 mg oral tablet 1 tab(s), Oral, TID, Refill(s) 0 Start Date: 03/03/19 Status: Ordered take 1 tablet by esther th every eight hours as needed HYDROcodone-acetaminophen [...] Comment on above: Take [address] [facility] once daily. losartan potassium 100 mg oral [...] EVERY DAY Take 2 tablets by [facility] once daily. tiZANidine 4 mg oral tablet [...] take 1 capsule by mouth twice da jeo celecoxib (CELEBREX) 100 mg capsule Take 100 [...] TWICE DAILY FOR SKIN FOLDS triamcinolone acetonide 0.86134 mg/mg topical ointment (8 sources) Corticosteroid Start [...] Correction: Diagnosis: spinal stenosis, lumbosacral region Normal [facility] Comment on above: Result Comment: Elec tronically Signed By: Neeraj HUDSON, Barry Means.br\Date and Time Signed: 01/28/23 12:16 EST CNOVon 01-22-2023 CNOV Office Visit (DARNELL ) SHELLY WILSON ([id number]) 1955 F Date Time Provider Department 01/22/23 [...] showing osteoarthritis. Dr Miller her PCP from [facility] in [place] prescribed prednisone 40 mg/d x 5. Reduced [...] See ophthalmology (more content not included)... Normal [facility] Consent for Procedure/Surger yon 01-20-2023 Consent for Procedure/Surgery [id number]# 1.00TIFF Normal [facility] Consent for Treatmenton Consent for Treatment [id number]#1 .00TIFF [facility] Discharge Instructionson Discharge Instructions [id number]# 1.00TIFF Normal [facility] IntraOperative Documentson 1 03-23-2022 IntraOperative Documents [id number]# 1.00TIFF Normal [facility] Main OR Intraoperative Recor don 01-20-2023 Main OR Intraoperative Record IntraOp Document Type FTPM Summary Primary Physician: Barry Pickard MD Finalized Date/Time: 01/20/23 13:46:44 Pt. Name: SHELLY HUMPHREYS/Sex: 1955 Female Med Rec #: [id number] Physician: Barry Pickard MD Financial #: [id number] Pt. Type: P Room/Bed: / Admit/Disch: 01/20/23 [...] Addis Ana Role Performed Surgeon - Primary Bicycle I Assembler - Primary Scrub - Primary Time In 01/20/23 13:40:00 01/20/23 13:40:00 01/20/23 13:40:00 Time Out 01/20/23 13:46:00 01/20/23 13:46:00 01/20/23 13:46:00 Procedure TRANSFORAMINAL EPIDURAL TRANSFORAMINAL EPIDURAL TRANSFORAMINAL EPIDURAL STEROID STEROID STEROID INJECTIO(Bilateral) INJECTIO(Bilateral) INJECTIO(Bilateral) Comments Last Modified By: Jean-Pierre ROSE, Padmini Morejon RN, Padmini Morejon RN, Padmini Waters 01/20/23 13:46:06 01/20/23 13:46:06 01/20/23 13:46:06 Entry 4 Case Attendee Jessy FIGUEROA(R)Shannon Role Performed X Ray Equipment Mechanic Time In 01/20/23 13:40:00 Time Out 01/20/23 [...] and tissue Entry 1 Skin Integrity Intact, [place], Warm, and Skin Abnormality No Dry Outcomes [...] Safety Strap, (more content not included)... Normal [facility] Main OR Preoperative Recordo n 01-20-2023 Main OR Preoperative Record Holding Area Document Type FTPM Summary Primary Physician: Barry Pickard MD Finalized Date/Time: 01/20/23 13:38:50 Pt. Name: SHELLY HUMPHREYS/Sex: 1955 Female Med Rec #: [id number] Physician: Barry Pickard MD Financial #: [id number] Pt. Type: P Room/Bed: / Admit/Disch: 01/20/23 [...] By: Suzette Ferrer RN 01/20/23 13:38 Normal [facility] CBC W Auto Differential pane l (Bld)on 01-17-2023 Basophils (Bld) [#/Vol] 0.12 10*3/uL High <0.11 [facility] Comment on above: Order Comment: Speci men Type: BLOOD SPECIMENOrdering Facility: [facility] Address: [address] [place] [address] Performed By: #### 5 7021-8 ####[facility] LABCLIA [id number] [place] [address] Basophils/100 WBC (Bld) 0.8 % Normal [facility] Comment on above: Order Comment: Speci men Type: BLOOD SPECIMENOrdering Facility: [facility] Address: [address] [place] [address] Performed By: #### 5 7021-8 ####[facility] LABCLIA [id number] [place] [address] Differential cell count method Nom (Bld) Auto Normal [facility] Comment on above: Order Comment: Speci men Type: BLOOD SPECIMENOrdering Facility: [facility] Address: [address] [place] [address] Performed By: #### 5 7021-8 ####[facility] LABCLIA [id number] [place] [address] Eosinophils (Bld) [#/Vol] 0.17 10*3/uL Normal <0.46 [facility] Comment on above: Order Comment: Speci men Type: BLOOD SPECIMENOrdering Facility: [facility] Address: [address] [place] [address] Performed By: #### 5 7021-8 ####[facility] LABIA [id number] [place] [address] Eosinophils/100 WBC (Bld) 1.1 % Normal [facility] Comment on above: Order Comment: Speci men Type: BLOOD SPECIMENOrdering Facility: [facility] Address: [address] [place] [address] Performed By: #### 5 7021-8 ####[facility] LABCLIA [id number] [place] [address] Erythrocyte distribution width (RBC) [Ratio] 13.2 % Normal 11.5-15.0 [facility] Comment on above: Order Comment: Speci men Type: BLOOD SPECIMENOrdering Facility: [facility] Address: [address] [place] [address] Performed By: #### 5 7021-8 ####[facility] LABIA [id number] [place] [address] Hematocrit (Bld) [Volume fraction] 44.1 % Normal 36.0-46.0 [facility] Comment on above: Order Comment: Speci men Type: BLOOD SPECIMENOrdering Facility: [facility] Address: [address] [place] [address] Performed By: #### 5 7021-8 ####[facility] LABCLIA [id number] [place] [address] Hemoglobin (Bld) [Mass/Vol] 14.4 g/dL Normal 11.5-15.5 [facility] Comment on above: Order Comment: Speci men Type: BLOOD SPECIMENOrdering Facility: [facility] Address: [address] [place] [address] Performed By: #### 5 7021-8 ####[facility] LABCLIA [id number] [place] [address] Immature granulocytes (Bld) [#/Vol] 0.12 10*3/uL High <0.10 [facility] Comment on above: Order Comment: Speci men Type: BLOOD SPECIMENOrdering Facility: [facility] Address: [address] [place] [address] Performed By: #### 5 7021-8 ####[facility] LABCLIA [id number] [place] [address] Immature granulocytes/100 WBC (Bld) 0.8 % Normal [facility] Comment on above: Order Comment: Speci men Type: BLOOD SPECIMENOrdering Facility: [facility] Address: [address] [place] [address] Performed By: #### 5 7021-8 ####[facility] LABCLIA [id number] [place] [address] Lymphocytes (Bld) [#/Vol] 2.38 10*3/uL Normal 1.00-4.00 [facility] Comment on above: Order Comment: Speci men Type: BLOOD SPECIMENOrdering Facility: [facility] Address: [address] [place] [address] Performed By: #### 5 7021-8 ####[facility] LABCLIA [id number] [place] [address] Lymphocytes/100 WBC (Bld) 15.3 % Normal [facility] Comment on above: Order Comment: Speci men Type: BLOOD SPECIMENOrdering Facility: [facility] Address: [address] [place] [address] Performed By: #### 5 7021-8 ####[facility] LABCLIA [id number] [place] [address] MCH (RBC) [Entitic mass] 31.4 pg Normal 26.0-34.0 [facility] Comment on above: Order Comment: Speci men Type: BLOOD SPECIMENOrdering Facility: [facility] Address: [address] [place] [address] Performed By: #### 5 7021-8 ####[facility] LABCLIA [id number] [place] [address] MCHC (RBC) [Mass/Vol] 32.7 g/dL Normal 30.5-36.0 [facility] Comment on above: Order Comment: Speci men Type: BLOOD SPECIMENOrdering Facility: [facility] Address: [address] [place] [address] Performed By: #### 5 7021-8 ####[facility] LABCLIA [id number] [place] [address] MCV (RBC) [Entitic vol] 96.3 fL Normal 80.0-100.0 [facility] Comment on above: Order Comment: Speci men Type: BLOOD SPECIMENOrdering Facility: [facility] Address: [address] [place] [address] Performed By: #### 5 7021-8 ####[facility] LABCLIA [id number] [place] [address] Monocytes (Bld) [#/Vol] 1.19 10*3/uL High <0.87 [facility] Comment on above: Order Comment: Speci men Type: BLOOD SPECIMENOrdering Facility: [facility] Address: [address] [place] [address] Performed By: #### 5 7021-8 ####[facility] LABCLIA [id number] [place] [address] Monocytes/100 WBC (Bld) 7.7 % Normal [facility] Comment on above: Order Comment: Speci men Type: BLOOD SPECIMENOrdering Facility: [facility] Address: [address] [place] [address] Performed By: #### 5 7021-8 ####[facility] LABCLIA [id number] [place] [address] Neutrophils (Bld) [#/Vol] 11.55 10*3/uL High 1.45-7.50 [facility] Comment on above: Order Comment: Speci men Type: BLOOD SPECIMENOrdering Facility: [facility] Address: [address] [place] [address] Performed By: #### 5 7021-8 ####[facility] LABIA [id number] [place] [address] Neutrophils/100 WBC (Bld) 74.3 % Normal [facility] Comment on above: Order Comment: Speci men Type: BLOOD SPECIMENOrdering Facility: [facility] Address: [address] [place] [address] Performed By: #### 5 7021-8 ####[facility] LABCLIA [id number] [place] [address] Nucleated RBC (Bld) [#/Vol] 10*3/uL Normal <0.01 [facility] Comment on above: Order Comment: Speci men Type: BLOOD SPECIMENOrdering Facility: [facility] Address: [address] [place] [address] Performed By: #### 5 7021-8 ####[facility] LABIA [id number] [place] [address] Nucleated RBC/100 WBC (Bld) [Ratio] 0.0 /100 WBC Normal [facility] Comment on above: Order Comment: Speci men Type: BLOOD SPECIMENOrdering Facility: [facility] Address: [address] [place] [address] Performed By: #### 5 7021-8 ####[facility] LABCLIA [id number] [place] [address] Platelet mean volume (Bld) [Entitic vol] 8.8 fL Low 9.0-12.7 [facility] Comment on above: Order Comment: Speci men Type: BLOOD SPECIMENOrdering Facility: [facility] Address: [address] [place] [address] Performed By: #### 5 7021-8 ####[facility] LABCLIA [id number] [place] [address] Platelets (Bld) [#/Vol] 413 10*3/uL High 150-400 [facility] Comment on above: Order Comment: Speci men Type: BLOOD SPECIMENOrdering Facility: [facility] Address: [address] [place] [address] Performed By: #### 5 7021-8 ####[facility] LABCLIA [id number] [place] [address] RBC (Bld) [#/Vol] 4.58 10*6/uL Normal 3.90-5.20 [facility] Comment on above: Order Comment: Speci men Type: BLOOD SPECIMENOrdering Facility: [facility] Address: [address] [place] [address] Performed By: #### 5 7021-8 ####[facility] LABCLIA [id number] [place] [address] WBC (Bld) [#/Vol] 15.53 10*3/uL High 3.70-11.00 [facility] Comment on above: Order Comment: Speci men Type: BLOOD SPECIMENOrdering Facility: [facility] Address: [address] [place] [address] Performed By: #### 5 7021-8 ####[facility] LABCLIA [id number] [place] [address] Comprehensive metabolic 2000 panelon 01-17-2023 Albumin [Mass/Vol] 4.5 g/dL Normal 3.9-4.9 [facility] Comment on above: Order Comment: Speci men Type: BLOOD SPECIMENOrdering Facility: [facility] Address: [address] [place] [address] Performed By: #### 2 4323-8 ####[facility] LABCLIA [id number] [place] [address] ALP [Catalytic activity/Vol] 75 U/L Normal 34-123 [facility] Comment on above: Order Comment: Speci men Type: BLOOD SPECIMENOrdering Facility: [facility] Address: [address] [place] [address] Performed By: #### 2 4323-8 ####[facility] LABCLIA [id number] [place] [address] ALT [Catalytic activity/Vol] 12 U/L Normal 7-38 [facility] Comment on above: Order Comment: Speci men Type: BLOOD SPECIMENOrdering Facility: [facility] Address: [address] [place] [address] Performed By: #### 2 4323-8 ####[facility] LABCLIA [id number] [place] [address] Anion gap [Moles/Vol] 9 mmol/L Normal 9-18 [facility] Comment on above: Order Comment: Speci men Type: BLOOD SPECIMENOrdering Facility: [facility] Address: [address] [place] [address] Performed By: #### 2 4323-8 ####[facility] LABCLIA [id number] [place] [address] AST [Catalytic activity/Vol] 17 U/L Normal 13-35 [facility] Comment on above: Order Comment: Speci men Type: BLOOD SPECIMENOrdering Facility: [facility] Address: [address] [place] [address] Performed By: #### 2 4323-8 ####[facility] LABCLIA [id number] [place] [address] Bilirubin [Mass/Vol] 0.4 mg/dL Normal 0.2-1.3 [facility] Comment on above: Order Comment: Speci men Type: BLOOD SPECIMENOrdering Facility: [facility] Address: [address] [place] [address] Performed By: #### 2 4323-8 ####[facility] LABCLIA [id number] [place] [address] Calcium [Mass/Vol] 9.6 mg/dL Normal 8.5-10.2 [facility] Comment on above: Order Comment: Speci men Type: BLOOD SPECIMENOrdering Facility: [facility] Address: [address] [place] [address] Performed By: #### 2 4323-8 ####[facility] LABCLIA [id number] [place] [address] Chloride [Moles/Vol] 101 mmol/L Normal 97-105 [facility] Comment on above: Order Comment: Speci men Type: BLOOD SPECIMENOrdering Facility: [facility] Address: [address] [place] [address] Performed By: #### 2 4323-8 ####[facility] LABCLIA [id number] [place] [address] CO2 [Moles/Vol] 28 mmol/L Normal 22-30 [facility] Comment on above: Order Comment: Speci men Type: BLOOD SPECIMENOrdering Facility: [facility] Address: [address] [place] [address] Performed By: #### 2 4323-8 ####[facility] LABCLIA [id number] [place] [address] Creatinine [Mass/Vol] 0.67 mg/dL Normal 0.58-0.96 [facility] Comment on above: Order Comment: Speci men Type: BLOOD SPECIMENOrdering Facility: [facility] Address: [address] [place], [place] [address] Performed By: #### 2 4323-8 ####[facility] LABCLIA [id number] [place] [address] Creatinine and Glomerular filtration rate.predicted panel (S/P/Bld) 96 mL/min/1.73m??? Normal >=60 [facility] Comment on above: Order Comment: Tam purvis Type: BLOOD SPECIMENOrdering Facility: [facility] Address: [address] [place] [address] Result Comment: Carmen mated Glomerular Filtration Rate [...] actual GFR. Performed By: #### 2 4323-8 ####[facility] LABIA [id number] [place] [address] Glucose [Mass/Vol] 104 mg/dL High 74-99 [facility] Comment on above: Order Comment: Tam purvis Type: BLOOD SPECIMENOrdering Facility: [facility] Address: [address] [place] [address] Result Comment: The [place] [employer] (ADA) provides guidance for cutoff [...] Standards of Medical Care in Diabetes 2016, [place] [employer]. Diabetes Care. 2016.39(Suppl 1). Performed By: #### 2 4323-8 ####[facility] LABCLIA [id number] [place] [address] Potassium [Moles/Vol] 4.1 mmol/L Normal 3.7-5.1 [facility] Comment on above: Order Comment: Speci men Type: BLOOD SPECIMENOrdering Facility: [facility] Address: [address] [place] [address] Performed By: #### 2 4323-8 ####[facility] LABCLIA [id number] [place] [address] Protein [Mass/Vol] 6.9 g/dL Normal 6.3-8.0 [facility] Comment on above: Order Comment: Speci men Type: BLOOD SPECIMENOrdering Facility: [facility] Address: [address] [place] [address] Performed By: #### 2 4323-8 ####[facility] LABCLIA [id number] [place] [address] Sodium [Moles/Vol] 138 mmol/L Normal 136-144 [facility] Comment on above: Order Comment: Speci men Type: BLOOD SPECIMENOrdering Facility: [facility] Address: [address] [place] [address] Performed By: #### 2 4323-8 ####[facility] LABCLIA [id number] [place] [address] Urea nitrogen [Mass/Vol] 11 mg/dL Normal 7-21 [facility] Comment on above: Order Comment: Speci men Type: BLOOD SPECIMENOrdering Facility: [facility] Address: [address] [place] [address] Performed By: #### 2 4323-8 ####[facility] LABIA [id number] [place] [address] ESR Westergren method (Bld) [Velocity]on 01-17-2023 ESR (Bld) [Velocity] 12 mm/h Normal 0-20 [facility] Comment on above: Order Comment: Speci men Type: BLOOD SPECIMENOrdering Facility: [facility] Address: [address] [place], [place] [address] [address] Performed By: #### 4 537-7 ####[facility] LABCLIA [id number] YESSENIACarol DIAS [id number] [id number] [place] Patient Correspondenceon Patient Correspondence [id number] .00TIFF Normal [facility] Workers' Comp Officeon 01-02 Workers' Comp Office [id number]#5 .00TIFF Normal [facility] CNPNon 11-08-2022 CNPN Telephone (DERMMN) SHELLY WILSON ([id number]) 1955 F Date Time Provider Department 11/08/22 [...] Fully Assessed Reason for Visit: Patient Question [1417] Prescriptions as of 11/11/2022 - ketoconazole (NIZORAL) [...] Encounter Status:Closed by HALLIE STALLINGS on 11/08/22 [facility] 10-28-2022 [facility]AC[facility] Telephone (DARNELL) SHELLY WILSON ([id number]) 1955 F Date Time Provider Department 10/28/22 [...] Date: 10/28/2022 (None) Encounter Status:Closed by LUCINDA COATES on 10/29/22 [facility] SHE[facility] WIL[facility] ([id number]) 1955 F Date Time Provider Department 10/01/22 JOHN LIZ During your visit today, we recorded the following information about you: Liana Lynn 10/01/2022 4:14 PM Signed Pt called to let dr. Liz know since she changed how she takes her medications her feet and ankles are swelling Please call pt [phone] John Liz MD 10/02/2022 10:53 AM Signed [...] Status:Closed by KARYN KOENIG on 10/02/22 Normal [facility] CBC W Auto Differential pane l (Bld)on 09-25-2022 Basophils (Bld) [#/Vol] 0.08 10*3/uL <0.11 k/uL [facility] Basophils/100 WBC (Bld) 0.4 % [facility] Differential cell count method Nom (Bld) Auto [facility] Eosinophils (Bld) [#/Vol] <0.46 k/uL [facility] Eosinophils/100 WBC (Bld) 0.1 % [facility] Erythrocyte distribution width (RBC) [Ratio] 14.6 % 11.5 - 15.0 % [facility] Hematocrit (Bld) [Volume fraction] 46.6 % High 36.0 - 46.0 % [facility] Hemoglobin (Bld) [Mass/Vol] 15.4 g/dL 11.5 - 15.5 g/dL [facility] Immature granulocytes (Bld) [#/Vol] 0.23 10*3/uL High <0.10 k/uL [facility] Immature granulocytes/100 WBC (Bld) 1.2 % [facility] Lymphocytes (Bld) [#/Vol] 1.81 10*3/uL 1.00 - 4.00 k/uL [facility] Lymphocytes/100 WBC (Bld) 9.3 % [facility] MCH (RBC) [Entitic mass] 30.8 pg 26.0 - 34.0 pg [facility] MCHC (RBC) [Mass/Vol] 33.0 g/dL 30.5 - 36.0 g/dL [facility] MCV (RBC) [Entitic vol] 93.2 fL 80.0 - 100.0 fL [facility] Monocytes (Bld) [#/Vol] 1.05 10*3/uL High <0.87 k/uL [facility] Monocytes/100 WBC (Bld) 5.4 % [facility] Neutrophils (Bld) [#/Vol] 16.19 10*3/uL High 1.45 - 7.50 k/uL [facility] Neutrophils/100 WBC (Bld) 83.6 % [facility] Nucleated RBC (Bld) [#/Vol] <0.01 k/uL [facility] Nucleated RBC/100 WBC (Bld) [Ratio] 0.0 /100 WBC [facility] [facility] Platelet mean volume (Bld) [Entitic vol] 9.4 fL 9.0 - 12.7 fL [facility] Platelets (Bld) [#/Vol] 454 10*3/uL High 150 - 400 k/uL [facility] RBC (Bld) [#/Vol] 5.00 10*6/uL 3.90 - 5.2 0 m/uL [facility] WBC (Bld) [#/Vol] 19.38 10*3/uL High 3.70 - 11 .00 k/uL [facility] Basophils (Bld) [#/Vol] 0.08 10*3/uL Normal <0.11 [facility] Comment on above: Order Comment: Speci men Type: BLOOD SPECIMENOrdering Facility: [facility] Address: [address] [place] [address] Performed By: #### 5 7021-8, 4536-7 ####[facility] LABCLIA [id number] [place] [address] [place] Basophils/100 WBC (Bld) 0.4 % Normal [facility] Comment on above: Order Comment: Speci men Type: BLOOD SPECIMENOrdering Facility: [facility] Address: [address] [place] [address] Performed By: #### 5 7021-8, 7 ####[facility] LABCLIA [id number] [place] [address] [place] Differential cell count method Nom (Bld) Auto Normal [facility] Comment on above: Order Comment: Speci men Type: BLOOD SPECIMENOrdering Facility: [facility] Address: [address] [place] [address] Performed By: #### 5 7021-8, 4536-7 ####[facility] LABCLIA [id number] [place] [address] [place] Eosinophils (Bld) [#/Vol] 10*3/uL Normal <0.46 [facility] Comment on above: Order Comment: Speci men Type: BLOOD SPECIMENOrdering Facility: [facility] Address: [address] [place], [place] [address] Performed By: #### 5 7021-8, 4536-7 ####[facility] LABCLIA [id number] [place] [address] [place] Eosinophils/100 WBC (Bld) 0.1 % Normal [facility] Comment on above: Order Comment: Speci men Type: BLOOD SPECIMENOrdering Facility: [facility] Address: [address] [place] [address] Performed By: #### 5 7021-8, 4536-7 ####[facility] LABCLIA [id number] [place] [address] [place] Erythrocyte distribution width (RBC) [Ratio] 14.6 % Normal 11.5-15.0 [facility] Comment on above: Order Comment: Speci men Type: BLOOD SPECIMENOrdering Facility: [facility] Address: [address] [place] [address] Performed By: #### 5 7021-8, 4536-7 ####[facility] LABCLIA [id number] [place] [address] [place] Hematocrit (Bld) [Volume fraction] 46.6 % High 36.0-46.0 [facility] Comment on above: Order Comment: Speci men Type: BLOOD SPECIMENOrdering Facility: [facility] Address: [address] [place] [address] Performed By: #### 5 7021-8, 7 ####[facility] LABIA [id number] [place] [address] [place] Hemoglobin (Bld) [Mass/Vol] 15.4 g/dL Normal 11.5-15.5 [facility] Comment on above: Order Comment: Speci men Type: BLOOD SPECIMENOrdering Facility: [facility] Address: [address] [place], [place] [address] Performed By: #### 5 7021-8, 4536-7 ####[facility] LABCLIA [id number] [place] [address] [place] Immature granulocytes (Bld) [#/Vol] 0.23 10*3/uL High <0.10 [facility] Comment on above: Order Comment: Speci men Type: BLOOD SPECIMENOrdering Facility: [facility] Address: [address] [address] Performed By: #### 5 7021-8, 4536-7 ####[facility] LABCLIA [id number] [address] [place] [facility] Immature granulocytes/100 WBC (Bld) 1.2 % Normal [facility] Comment on above: Order Comment: Speci men Type: BLOOD SPECIMENOrdering Facility: [facility] Address: [address] [address] Performed By: #### 5 7021-8, 4536-7 ####[facility] LABCLIA [id number] [place] [address] [place] Lymphocytes (Bld) [#/Vol] 1.81 10*3/uL Normal 1.00-4.00 [facility] Comment on above: Order Comment: Speci men Type: BLOOD SPECIMENOrdering Facility: [facility] Address: [address] Performed By: #### 5 7021-8, 7 ####[facility] LABCLIA [id number] [address] [place] Lymphocytes/100 WBC (Bld) 9.3 % Normal [facility] Comment on above: Order Comment: Speci men Type: BLOOD SPECIMENOrdering Facility: [facility] Address: [address] Performed By: #### 5 7021-8, 4536-7 ####[facility] LABCLIA [id number] [place] [address] [place] MCH (RBC) [Entitic mass] 30.8 pg Normal 26.0-34.0 [facility] Comment on above: Order Comment: Speci men Type: BLOOD SPECIMENOrdering Facility: [facility] Address: [address] [place] [address] Performed By: #### 5 7021-8, 7 ####[facility] LABCLIA [id number] [place] [address] [place] MCHC (RBC) [Mass/Vol] 33.0 g/dL Normal 30.5-36.0 [facility] Comment on above: Order Comment: Speci men Type: BLOOD SPECIMENOrdering Facility: [facility] Address: [address] [place] [address] Performed By: #### 5 7021-8, 4536-08 ####[facility] LABCLIA [id number] [place] [address] [place] MCV (RBC) [Entitic vol] 93.2 fL Normal 80.0-100.0 [facility] Comment on above: Order Comment: Speci men Type: BLOOD SPECIMENOrdering Facility: [facility] Address: [address] [place] [address] Performed By: #### 5 7021-8, 4536-08 ####[facility] LABCLIA [id number] [place] [address] [place] Monocytes (Bld) [#/Vol] 1.05 10*3/uL High <0.87 [facility] Comment on above: Order Comment: Speci men Type: BLOOD SPECIMENOrdering Facility: [facility] Address: [address] [place] [address] Performed By: #### 5 7021-8, 4536-08 ####[facility] LABCLIA [id number] [place] [address] [place] Monocytes/100 WBC (Bld) 5.4 % Normal [facility] Comment on above: Order Comment: Speci men Type: BLOOD SPECIMENOrdering Facility: [facility] Address: [address] [place], [place] [address] Performed By: #### 5 7021-8, 4536-08 ####[facility] LABCLIA [id number] [place] [address] [place] Neutrophils (Bld) [#/Vol] 16.19 10*3/uL High 1.45-7.50 [facility] Comment on above: Order Comment: Speci men Type: BLOOD SPECIMENOrdering Facility: [facility] Address: [address] [place] [address] Performed By: #### 5 7021-8, 4536-7 ####[facility] LABIA [id number] [place] [address] [place] Neutrophils/100 WBC (Bld) 83.6 % Normal [facility] Comment on above: Order Comment: Speci men Type: BLOOD SPECIMENOrdering Facility: [facility] Address: [address] [place] [address] Performed By: #### 5 7021-8, 4536-7 ####[facility] LABIA [id number] [place] [address] [place] Nucleated RBC (Bld) [#/Vol] 10*3/uL Normal <0.01 [facility] Comment on above: Order Comment: Speci men Type: BLOOD SPECIMENOrdering Facility: [facility] Address: [address] [place] [address] Performed By: #### 5 7021-8, 4536-7 ####[facility] LABIA [id number] [place] [address] [place] Nucleated RBC/100 WBC (Bld) [Ratio] 0.0 /100 WBC Normal [facility] Comment on above: Order Comment: Speci men Type: BLOOD SPECIMENOrdering Facility: [facility] Address: [address] [place], [place] [address] Performed By: #### 5 7021-8, 4536-7 ####[facility] LABIA [id number] [place] [address] [place] Platelet mean volume (Bld) [Entitic vol] 9.4 fL Normal 9.0-12.7 [facility] Comment on above: Order Comment: Speci men Type: BLOOD SPECIMENOrdering Facility: [facility] Address: [address] [place] [address] Performed By: #### 5 7021-8, 7-7 ####[facility] LABCLIA [id number] [place] [address] [place] Platelets (Bld) [#/Vol] 454 10*3/uL High 150-400 [facility] Comment on above: Order Comment: Speci men Type: BLOOD SPECIMENOrdering Facility: [facility] Address: [address] [place], [place] [address] Performed By: #### 5 7021-8, 4536-7 ####[facility] LABCLIA [id number] [place] [address] [place] RBC (Bld) [#/Vol] 5.00 10*6/uL Normal 3.90-5.20 [facility] Comment on above: Order Comment: Speci men Type: BLOOD SPECIMENOrdering Facility: [facility] Address: [address] [place], [place] [address] Performed By: #### 5 7021-8, 4536-7 ####[facility] LABCLIA [id number] [place] [address] [place] WBC (Bld) [#/Vol] 19.38 10*3/uL High 3.70-11.00 [facility] Comment on above: Order Comment: Speci men Type: BLOOD SPECIMENOrdering Facility: [facility] Address: [address] [place] [address] Performed By: #### 5 7021-8, 4536-7 ####[facility] LABCLIA [id number] [place] [id number] [place] CNOVon 09-25-2022 CNOV Office Visit ([facility] ) SHELLY WILSON ([id number]) 1955 F Date Time Provider Department 09/25/22 [...] showing osteoarthritis. Dr Miller her PCP from [facility] in [place] prescribed prednisone 40 mg/d x 5. Reduced [...] John Liz MD Referring Provider: JOHN LIZ [[id number]] Allergies As of Date: 09/25/2022 Noted Allergy Reaction CODEINE 06/27/2022 8 - GI Upset Date Reviewed: 09/25/2022 Reviewed by: Chantell Minaya (more content not included)... Normal [facility] Comprehensive metabolic 2000 panelon 09-25-2022 Albumin [Mass/Vol] 4.2 g/dL Normal 3.9-4.9 [facility] Comment on above: Order Comment: Speci yaniv Type: BLOOD SPECIMENOrdering Facility: [facility] Address: [address] [place] [address] Performed By: #### 2 4323-8 ####[facility] LABCLIA [id number] [place] [address] [place] ALP [Catalytic activity/Vol] 72 U/L Normal 34-123 [facility] Comment on above: Order Comment: Speci yaniv Type: BLOOD SPECIMENOrdering Facility: [facility] Address: [address] [place] [address] Performed By: #### 2 4323-8 ####[facility] LABCLIA [id number] [place] [address] [place] ALT [Catalytic activity/Vol] 28 U/L Normal 7-38 [facility] Comment on above: Order Comment: Speci men Type: BLOOD SPECIMENOrdering Facility: [facility] Address: [address] [place] [address] Performed By: #### 2 4323-8 ####[facility] LABCLIA [id number] [place] [address] [place] Anion gap [Moles/Vol] 12 mmol/L Normal 9-18 [facility] Comment on above: Order Comment: Speci men Type: BLOOD SPECIMENOrdering Facility: [facility] Address: [address] [place] [address] Performed By: #### 2 4323-8 ####[facility] LABCLIA [id number] [place] [address] [place] AST [Catalytic activity/Vol] 24 U/L Normal 13-35 [facility] Comment on above: Order Comment: Speci men Type: BLOOD SPECIMENOrdering Facility: [facility] Address: [address] [place] [address] Performed By: #### 2 4323-8 ####[facility] LABCLIA [id number] [place] [address] [place] Bilirubin [Mass/Vol] 0.4 mg/dL Normal 0.2-1.3 [facility] Comment on above: Order Comment: Speci men Type: BLOOD SPECIMENOrdering Facility: [facility] Address: [address] [place] [address] Performed By: #### 2 4323-8 ####[facility] LABCLIA [id number] [place] [address] [place] Calcium [Mass/Vol] 9.9 mg/dL Normal 8.5-10.2 [facility] Comment on above: Order Comment: Speci men Type: BLOOD SPECIMENOrdering Facility: [facility] Address: [address] [address] Performed By: #### 2 4323-8 ####[facility] LABCLIA [id number] [place] [address] [place] Chloride [Moles/Vol] 102 mmol/L Normal 97-105 [facility] Comment on above: Order Comment: Speci men Type: BLOOD SPECIMENOrdering Facility: [facility] Address: [address] [place] [address] Performed By: #### 2 4323-8 ####[facility] LABCLIA [id number] [place] [address] [place] CO2 [Moles/Vol] 26 mmol/L Normal 22-30 [facility] Comment on above: Order Comment: Speci men Type: BLOOD SPECIMENOrdering Facility: [facility] Address: [address] [place] [address] Performed By: #### 2 4323-8 ####[facility] LABCLIA [id number] [place] [address] [place] Creatinine [Mass/Vol] 0.62 mg/dL Normal 0.58-0.96 [facility] Comment on above: Order Comment: Speci men Type: BLOOD SPECIMENOrdering Facility: [facility] Address: [address] [place] [address] Performed By: #### 2 4323-8 ####[facility] LABCLIA [id number] [place] [address] [place] ESTIMATED GLOMERULAR FILTRATION RATE 98 mL/min/1.73m??? Normal >=60 [facility] Comment on above: Order Comment: Speci men Type: BLOOD SPECIMENOrdering Facility: [facility] Address: [address] [place] [address] Result Comment: Carmen mated Glomerular Filtration Rate [...] actual GFR. Performed By: #### 2 4323-8 ####[facility] LABCLIA [id number] [place] [address] [place] Glucose [Mass/Vol] 101 mg/dL High 74-99 [facility] Comment on above: Order Comment: Speci men Type: BLOOD SPECIMENOrdering Facility: [facility] Address: [address] [id number] Result Comment: The [place] [employer] (ADA) provides guidance for cutoff [...] Standards of Medical Care in Diabetes 2016, [place] [employer]. Diabetes Care. 2016.39(Suppl 1). Performed By: #### 2 4323-8 ####[facility] LABCLIA [id number] [place] [id number] [place] Potassium [Moles/Vol] 4.6 mmol/L Normal 3.7-5.1 [facility] Comment on above: Order Comment: Speci men Type: BLOOD SPECIMENOrdering Facility: [facility] Address: [address] [place] [address] Performed By: #### 2 4323-8 ####[facility] LABCLIA [id number] [address] [address] [place] Protein [Mass/Vol] 6.8 g/dL Normal 6.3-8.0 [facility] Comment on above: Order Comment: Speci men Type: BLOOD SPECIMENOrdering Facility: [facility] Address: [address] [address] Performed By: #### 2 4323-8 ####[facility] LABIA [id number] [place] [address] [place] Sodium [Moles/Vol] 140 mmol/L Normal 136-144 [facility] Comment on above: Order Comment: Speci men Type: BLOOD SPECIMENOrdering Facility: [facility] Address: [address] [place] [address] Performed By: #### 2 4323-8 ####[facility] [id number] [address] [place] Urea nitrogen [Mass/Vol] 15 mg/dL Normal 7-21 [facility] Comment on above: Order Comment: Speci men Type: BLOOD SPECIMENOrdering Facility: [facility] Address: [address] [place] [address] Performed By: #### 2 4323-8 ####[facility] [id number] [place] [address] [place] ESR Westergren method (Bld) [Velocity]on 09-25-2022 ESR (Bld) [Velocity] 15 mm/h Normal 0-20 [facility] Comment on above: Order Comment: Speci men Type: BLOOD SPECIMENOrdering Facility: [facility] Address: [address] [place] [address] Performed By: #### 5 7021-8, 4537-7 ####[facility] [id number] [place] [address] [place] CBC W Auto Differential pane l (Bld)on 08-06-2022 Basophils (Bld) [#/Vol] 0.11 10*3/uL High <0.11 [facility] Comment on above: Order Comment: Speci men Type: BLOOD SPECIMENOrdering Facility: [facility] Address: [address] [address] Performed By: #### 5 7021-8 ####[facility] LABCLIA [id number] [place] [address] Basophils/100 WBC (Bld) 0.6 % Normal [facility] Comment on above: Order Comment: Speci men Type: BLOOD SPECIMENOrdering Facility: [facility] Address: [address] [place] [address] Performed By: #### 5 7021-8 ####[facility] LABCLIA [id number] [place] [address] Differential cell count method Nom (Bld) Auto Normal [facility] Comment on above: Order Comment: Speci men Type: BLOOD SPECIMENOrdering Facility: [facility] Address: [address] [place] [address] Performed By: #### 5 7021-8 ####[facility] LABCLIA [id number] [place] [address] Eosinophils (Bld) [#/Vol] 0.09 10*3/uL Normal <0.46 [facility] Comment on above: Order Comment: Speci men Type: BLOOD SPECIMENOrdering Facility: [facility] Address: [address] [place] [address] Performed By: #### 5 7021-8 ####[facility] LABCLIA [id number] [place] [address] Eosinophils/100 WBC (Bld) 0.5 % Normal [facility] Comment on above: Order Comment: Speci men Type: BLOOD SPECIMENOrdering Facility: [facility] Address: [address] [place] [address] Performed By: #### 5 7021-8 ####[facility] LABCLIA [id number] [place] [address] Erythrocyte distribution width (RBC) [Ratio] 13.5 % Normal 11.5-15.0 [facility] Comment on above: Order Comment: Speci men Type: BLOOD SPECIMENOrdering Facility: [facility] Address: [address] [address] Performed By: #### 5 7021-8 ####[facility] LABCLIA [id number] [place] [address] Hematocrit (Bld) [Volume fraction] 43.1 % Normal 36.0-46.0 [facility] Comment on above: Order Comment: Speci men Type: BLOOD SPECIMENOrdering Facility: [facility] Address: [address] [address] Performed By: #### 5 7021-8 ####[facility] LABCLIA [id number] [place] [address] Hemoglobin (Bld) [Mass/Vol] 14.2 g/dL Normal 11.5-15.5 [facility] Comment on above: Order Comment: Speci men Type: BLOOD SPECIMENOrdering Facility: [facility] Address: [address] [address] Performed By: #### 5 7021-8 ####[facility] LABCLIA [id number] [place] [address] Immature granulocytes (Bld) [#/Vol] 0.20 10*3/uL High <0.10 [facility] Comment on above: Order Comment: Speci men Type: BLOOD SPECIMENOrdering Facility: [facility] Address: [address] [address] Performed By: #### 5 7021-8 ####[facility] LABCLIA [id number] [place] [address] Immature granulocytes/100 WBC (Bld) 1.1 % Normal [facility] Comment on above: Order Comment: Speci men Type: BLOOD SPECIMENOrdering Facility: [facility] Address: [address] [address] Performed By: #### 5 7021-8 ####[facility] LABCLIA [id number] [place] [address] Lymphocytes (Bld) [#/Vol] 2.21 10*3/uL Normal 1.00-4.00 [facility] Comment on above: Order Comment: Speci men Type: BLOOD SPECIMENOrdering Facility: [facility] Address: [address] [place] [address] Performed By: #### 5 7021-8 ####[facility] LABCLIA [id number] [place] [address] Lymphocytes/100 WBC (Bld) 12.5 % Normal [facility] Comment on above: Order Comment: Speci men Type: BLOOD SPECIMENOrdering Facility: [facility] Address: [address] [place] [address] Performed By: #### 5 7021-8 ####[facility] LABCLIA [id number] [place] [address] MCH (RBC) [Entitic mass] 29.7 pg Normal 26.0-34.0 [facility] Comment on above: Order Comment: Speci men Type: BLOOD SPECIMENOrdering Facility: [facility] Address: [address] [place] [address] Performed By: #### 5 7021-8 ####[facility] LABCLIA [id number] [place] [address] MCHC (RBC) [Mass/Vol] 32.9 g/dL Normal 30.5-36.0 [facility] Comment on above: Order Comment: Speci men Type: BLOOD SPECIMENOrdering Facility: [facility] Address: [address] [place] [address] Performed By: #### 5 7021-8 ####[facility] LABCLIA [id number] [place] [address] MCV (RBC) [Entitic vol] 90.2 fL Normal 80.0-100.0 [facility] Comment on above: Order Comment: Speci men Type: BLOOD SPECIMENOrdering Facility: [facility] Address: [address] [address] Performed By: #### 5 7021-8 ####[facility] LABCLIA [id number] [place] [address] Monocytes (Bld) [#/Vol] 1.36 10*3/uL High <0.87 [facility] Comment on above: Order Comment: Speci men Type: BLOOD SPECIMENOrdering Facility: [facility] Address: [address] [place] [address] Performed By: #### 5 7021-8 ####[facility] LABCLIA [id number] [place] [address] Monocytes/100 WBC (Bld) 7.7 % Normal [facility] Comment on above: Order Comment: Speci men Type: BLOOD SPECIMENOrdering Facility: [facility] Address: [address] [address] Performed By: #### 5 7021-8 ####[facility] LABCLIA [id number] [place] [address] Neutrophils (Bld) [#/Vol] 13.72 10*3/uL High 1.45-7.50 [facility] Comment on above: Order Comment: Speci men Type: BLOOD SPECIMENOrdering Facility: [facility] Address: [address] [place] [address] Performed By: #### 5 7021-8 ####[facility] LABCLIA [id number] [place] [address] Neutrophils/100 WBC (Bld) 77.6 % Normal [facility] Comment on above: Order Comment: Speci men Type: BLOOD SPECIMENOrdering Facility: [facility] Address: [address] [place] [address] Performed By: #### 5 7021-8 ####[facility] LABCLIA [id number] [place] [address] Nucleated RBC (Bld) [#/Vol] 10*3/uL Normal <0.01 [facility] Comment on above: Order Comment: Speci men Type: BLOOD SPECIMENOrdering Facility: [facility] Address: [address] [place] [address] Performed By: #### 5 7021-8 ####[facility] LABCLIA [id number] [place] [address] Nucleated RBC/100 WBC (Bld) [Ratio] 0.0 /100 WBC Normal [facility] Comment on above: Order Comment: Speci men Type: BLOOD SPECIMENOrdering Facility: [facility] Address: [address] [place] [address] Performed By: #### 5 7021-8 ####[facility] LABIA [id number] [place] [address] Platelet mean volume (Bld) [Entitic vol] 8.3 fL Low 9.0-12.7 [facility] Comment on above: Order Comment: Speci men Type: BLOOD SPECIMENOrdering Facility: [facility] Address: [address] [place] [address] Performed By: #### 5 7021-8 ####[facility] LABIA [id number] [place] [address] Platelets (Bld) [#/Vol] 431 10*3/uL High 150-400 [facility] Comment on above: Order Comment: Speci men Type: BLOOD SPECIMENOrdering Facility: [facility] Address: [address] [place] [address] Performed By: #### 5 7021-8 ####[facility] LABIA [id number] [place] [address] RBC (Bld) [#/Vol] 4.78 10*6/uL Normal 3.90-5.20 [facility] Comment on above: Order Comment: Speci men Type: BLOOD SPECIMENOrdering Facility: [facility] Address: [address] [place] [address] Performed By: #### 5 7021-8 ####[facility] LABCLIA [id number] [place] [address] WBC (Bld) [#/Vol] 17.69 10*3/uL High 3.70-11.00 [facility] Comment on above: Order Comment: Speci men Type: BLOOD SPECIMENOrdering Facility: [facility] Address: [address] [place] [address] Performed By: #### 5 7021-8 ####[facility] LABCLIA [id number] [place] [address] Comprehensive metabolic 2000 panelon 08-06-2022 Albumin [Mass/Vol] 4.0 g/dL Normal 3.9-4.9 [facility] Comment on above: Order Comment: Speci men Type: BLOOD SPECIMENOrdering Facility: [facility] Address: [address] [place] [address] Performed By: #### 2 4323-8 ####[facility] LABCLIA [id number] [place] [address] ALP [Catalytic activity/Vol] 68 U/L Normal 34-123 [facility] Comment on above: Order Comment: Speci men Type: BLOOD SPECIMENOrdering Facility: [facility] Address: [address] [place] [address] Performed By: #### 2 4323-8 ####[facility] LABCLIA [id number] [place] [address] ALT [Catalytic activity/Vol] 16 U/L Normal 7-38 [facility] Comment on above: Order Comment: Speci men Type: BLOOD SPECIMENOrdering Facility: [facility] Address: [address] [place] [address] Performed By: #### 2 4323-8 ####[facility] LABCLIA [id number] [place] [address] Anion gap [Moles/Vol] 7 mmol/L Low 9-18 [facility] Comment on above: Order Comment: Speci men Type: BLOOD SPECIMENOrdering Facility: [facility] Address: [address] [place] [address] Performed By: #### 2 4323-8 ####[facility] LABCLIA [id number] [place] [address] AST [Catalytic activity/Vol] 16 U/L Normal 13-35 [facility] Comment on above: Order Comment: Speci men Type: BLOOD SPECIMENOrdering Facility: [facility] Address: [address] [place] [address] Performed By: #### 2 4323-8 ####[facility] LABCLIA [id number] [place] [address] Bilirubin [Mass/Vol] 0.4 mg/dL Normal 0.2-1.3 [facility] Comment on above: Order Comment: Speci men Type: BLOOD SPECIMENOrdering Facility: [facility] Address: [address] [place] [address] Performed By: #### 2 4323-8 ####[facility] LABCLIA [id number] [place] [address] Calcium [Mass/Vol] 9.8 mg/dL Normal 8.5-10.2 [facility] Comment on above: Order Comment: Speci men Type: BLOOD SPECIMENOrdering Facility: [facility] Address: [address] [place] [address] Performed By: #### 2 4323-8 ####[facility] LABCLIA [id number] [place] [address] Chloride [Moles/Vol] 102 mmol/L Normal 97-105 [facility] Comment on above: Order Comment: Speci men Type: BLOOD SPECIMENOrdering Facility: [facility] Address: [address] [address] Performed By: #### 2 4323-8 ####[facility] LABCLIA [id number] [place] [address] CO2 [Moles/Vol] 28 mmol/L Normal 22-30 [facility] Comment on above: Order Comment: Speci men Type: BLOOD SPECIMENOrdering Facility: [facility] Address: [address] [place] [address] Performed By: #### 2 4323-8 ####[facility] LABCLIA [id number] [place] [address] Creatinine [Mass/Vol] 0.66 mg/dL Normal 0.58-0.96 [facility] Comment on above: Order Comment: Speci men Type: BLOOD SPECIMENOrdering Facility: [facility] Address: [address] [place] [address] Performed By: #### 2 4323-8 ####[facility] LABCLIA [id number] [place] [address] ESTIMATED GLOMERULAR FILTRATION RATE 97 mL/min/1.73m??? Normal >=60 [facility] Comment on above: Order Comment: Speci men Type: BLOOD SPECIMENOrdering Facility: [facility] Address: [address] [place] [address] Result Comment: Carmen mated Glomerular Filtration Rate [...] actual GFR. Performed By: #### 2 4323-8 ####[facility] LABCLIA [id number] [place] [address] Glucose [Mass/Vol] 118 mg/dL High 74-99 [facility] Comment on above: Order Comment: Speci men Type: BLOOD SPECIMENOrdering Facility: [facility] Address: [address] [address] Result Comment: The [place] [employer] (ADA) provides guidance for cutoff [...] Standards of Medical Care in Diabetes 2016, [place] [employer]. Diabetes Care. 2016.39(Suppl 1). Performed By: #### 2 4323-8 ####[facility] LABCLIA [id number] [place] [address] Potassium [Moles/Vol] 4.3 mmol/L Normal 3.7-5.1 [facility] Comment on above: Order Comment: Speci [facility] Type: BLOOD SPECIMENOrdering Facility: [facility] Address: [address] [place] [address] Performed By: #### 2 4323-8 ####[facility] LABCLIA [id number] [place] [address] Protein [Mass/Vol] 6.6 g/dL Normal 6.3-8.0 [facility] Comment on above: Order Comment: Speci men Type: BLOOD SPECIMENOrdering Facility: [facility] Address: [address] [address] Performed By: #### 2 4323-8 ####[facility] LABCLIA [id number] [place] [address] Sodium [Moles/Vol] 137 mmol/L Normal 136-144 [facility] Comment on above: Order Comment: Speci men Type: BLOOD SPECIMENOrdering Facility: [facility] Address: [address] [place], [place] [address] Performed By: #### 2 4323-8 ####[facility] LABCLIA [id number] [place] [address] Urea nitrogen [Mass/Vol] 16 mg/dL Normal 7-21 [facility] Comment on above: Order Comment: Speci men Type: BLOOD SPECIMENOrdering Facility: [facility] Address: [address] [place] [address] Performed By: #### 2 4323-8 ####[facility] LABCLIA [id number] [place] [address] ESR Westergren method (Bld) [Velocity]on 08-06-2022 ESR (Bld) [Velocity] 18 mm/h Normal 0-20 [facility] Comment on above: Order Comment: Speci men Type: BLOOD SPECIMENOrdering Facility: [facility] Address: [address] [place] [address] Performed By: #### 4 537-7 ####[facility] LABIA [id number] [place] [address] [place] HBV core Ab Ser Qlon 023 HBV core Ab Ql (S) Negative Normal Negative [facility] Comment on above: Order Comment: Speci men Type: BLOOD SPECIMENOrdering Facility: [facility] Address: [address] [place] [address] Result Comment: No e vidence of current or past infection with Hepatitis B virus. Should recent infection be suspected, repeat testing may be considered 3-4 weeks after this draw. Performed By: #### 1 6933-4, 5195-3, 37857-7 ####[facility] LABIA [id number] [place] [address] [place] HBV surface Ab Ql (S)on 07-19 HBV surface Ab Qn (S) <8.00 Low >=12.00 [facility] Comment on above: Order Comment: Speci men Type: BLOOD SPECIMENOrdering Facility: [facility] Address: [address] [place] [address] Performed By: #### 1 6933-4, 5194-3, 97448-2 ####[facility] LABCLIA [id number] [address] HBV surface Ab Ser Qlon 07-19 HBV surface Ab Ql (S) Negative Abnormal Positive [facility] Comment on above: Order Comment: Speci men Type: BLOOD SPECIMENOrdering Facility: [facility] Address: [address] [place] [address] Result Comment: No e vidence of antibodies to Hepatitis B surface antigen. Performed By: #### 1 6933-4, 5194-3, 99982-3 ####[facility] LABCLIA [id number] [address] HBV surface Ag Ser Qlon 07-19 HBV surface Ag Ql (S) Negative Normal Negative [facility] Comment on above: Order Comment: Speci men Type: BLOOD SPECIMENOrdering Facility: [facility] Address: [address] [place] [address] Performed By: #### 1 6933-4, 3, ####[facility] LABCLIA [id number] [address] HCV Ab Ser Qlon 08-06-2022 HCV Ab Ql (S) Negative Normal Negative [facility] Comment on above: Order Comment: Speci men Type: BLOOD SPECIMENOrdering Facility: [facility] Address: [address] [place] [address] Result Comment: The result suggests no evidence of active infection with Hepatitis C virus. Should recent infection be suspected, repeat testing may be considered 4-6 weeks after this draw. Performed By: #### 1 6128-1 ####[facility] LABCLIA [id number] [address] Workers' Comp Officeon 07-26 Workers' Comp Office [id number]# 1.00CD:127 [facility] CNOVon 06-27-2022 CNOV Office Visit (DERMMN ) SHELLY WILSON ([id number]) 1955 F Date Time Provider Department 06/27/22 [...] Lymph 1.00 - 4.00 k/uL 4.49 (H) Pettis% % 7.0 Abs Pettis <0.87 k/uL 1.50 (H) Eosin% % 0.0 [...] skin folds (more content not included)... Normal [facility] Consultation Noteon 06-28-19 Consultation Note Chief complaint: [...] after the procedure for repeat evaluation. 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 She said please send Rx to [facility] in [place], [place] on [address] [facility]. She also notes that her hands are stiff and swollen again. She stopped prednisone Friday (she is out of pills) and the stiffness and swelling came back this morning. Also - she made an appointment to see Derm at [facility]. Her appointment is tomorrow 06/27. John [...] 2 CBC + DIFF [SQCBCDIF] Order #: [id number] FUTURE COMP METABOLIC PANEL [SQCMP] Order #: [id number] FUTURE SED RATE WESTERGREN [SQWSR] Order #: [id number] FUTURE HEP REMOTE PANEL BL [SQHREMOP] Order #: [id number] FUTURE Prescriptions as of 06/26/2022 - methotrexate [...] Number: 76 (more content not included)... Normal [facility] Consent for Treatmenton 06-17 Consent for Treatment [id number]# 1.00CD:127 Normal [facility] Office/Clinic Note-Physician on 06-26-2022 Office/Clinic Note-Physician [id number]#1 .00CD:127 Normal [facility] Patient Correspondenceon Patient Correspondence [id number]#1 .00CD:127 Normal [facility] Patient Correspondence [id number]#1 .00CD:127 Normal [facility] Patient History Officeon Patient History Office [id number]#1 .00CD:127 Normal [facility] ESR Westergren method (Bld) [Velocity]on 06-25-2022 ESR (Bld) [Velocity] 21 mm/h High 0 - 20 mm/hr [facility] CBC W Auto Differential pane l (Bld)on 06-24-2022 Basophils (Bld) [#/Vol] 0.21 10*3/uL High <0.11 [facility] Comment on above: Order Comment: Speci men Type: BLOOD SPECIMENOrdering Facility: [facility] Address: [address] [place] [address] Performed By: #### 4 537-7, 39091-4 ####[facility] LABCLIA [id number] [place] [address] [place] Basophils/100 WBC (Bld) 1.0 % Normal [facility] Comment on above: Order Comment: Speci men Type: BLOOD SPECIMENOrdering Facility: [facility] Address: [address] [place] [address] Performed By: #### 4 537-7, 54814-5 ####[facility] LABCLIA [id number] [place] [address] [place] Differential cell count method Nom (Bld) Manual Normal [facility] Comment on above: Order Comment: Speci men Type: BLOOD SPECIMENOrdering Facility: [facility] Address: [address] [place] [address] Performed By: #### 4 537-7, 30237-6 ####[facility] LABCLIA [id number] [place] [address] [place] Eosinophils (Bld) [#/Vol] 0.00 10*3/uL Normal <0.46 [facility] Comment on above: Order Comment: Speci men Type: BLOOD SPECIMENOrdering Facility: [facility] Address: [address] [address] Performed By: #### 4 537-7, 97998-7 ####[facility] LABCLIA [id number] [place] [address] [place] Eosinophils/100 WBC (Bld) 0.0 % Normal [facility] Comment on above: Order Comment: Speci men Type: BLOOD SPECIMENOrdering Facility: [facility] Address: [address] [address] Performed By: #### 4 537-7, 50289-1 ####[facility] LABIA [id number] [place] [address] [place] Erythrocyte distribution width (RBC) [Ratio] 12.4 % Normal 11.5-15.0 [facility] Comment on above: Order Comment: Speci men Type: BLOOD SPECIMENOrdering Facility: [facility] Address: [address] [place], [place] [address] Performed By: #### 4 537-7, 22499-1 ####[facility] LABIA [id number] [address] [place] Hematocrit (Bld) [Volume fraction] 42.2 % Normal 36.0-46.0 [facility] Comment on above: Order Comment: Speci men Type: BLOOD SPECIMENOrdering Facility: [facility] Address: [address] Performed By: #### 4 537-7, 99450-6 ####[facility] LABIA [id number] [place] [address] [place] Hemoglobin (Bld) [Mass/Vol] 14.5 g/dL Normal 11.5-15.5 [facility] Comment on above: Order Comment: Speci men Type: BLOOD SPECIMENOrdering Facility: [facility] Address: [address] [place] [address] Performed By: #### 4 537-7, 82515-7 ####[facility] LABCLIA [id number] [place] [address] [place] Lymphocytes (Bld) [#/Vol] 4.49 10*3/uL High 1.00-4.00 [facility] Comment on above: Order Comment: Speci men Type: BLOOD SPECIMENOrdering Facility: [facility] Address: [address] [place], [place] [address] Performed By: #### 4 537-7, 23697-5 ####[facility] LABCLIA [id number] [address] [place] Lymphocytes/100 WBC (Bld) 21.0 % Normal [facility] Comment on above: Order Comment: Speci men Type: BLOOD SPECIMENOrdering Facility: [facility] Address: [address] [place], [place] [address] Performed By: #### 4 537-7, 05664-2 ####[facility] LABCLIA [id number] [place] [address] [place] MCH (RBC) [Entitic mass] 30.9 pg Normal 26.0-34.0 [facility] Comment on above: Order Comment: Speci men Type: BLOOD SPECIMENOrdering Facility: [facility] Address: [address] [place], [place] [address] Performed By: #### 4 537-7, 35116-3 ####[facility] LABCLIA [id number] [place] [address] [place] MCHC (RBC) [Mass/Vol] 34.4 g/dL Normal 30.5-36.0 [facility] Comment on above: Order Comment: Speci men Type: BLOOD SPECIMENOrdering Facility: [facility] Address: [address] [place] [address] Performed By: #### 4 537-7, 69705-9 ####[facility] LABCLIA [id number] [place] [address] [place] MCV (RBC) [Entitic vol] 90.0 fL Normal 80.0-100.0 [facility] Comment on above: Order Comment: Speci men Type: BLOOD SPECIMENOrdering Facility: [facility] Address: [address] [place] [address] Performed By: #### 4 537-7, 91500-0 ####[facility] LABIA [id number] [place] [address] [place] Monocytes (Bld) [#/Vol] 1.50 10*3/uL High <0.87 [facility] Comment on above: Order Comment: Speci men Type: BLOOD SPECIMENOrdering Facility: [facility] Address: [address] [place] [address] Performed By: #### 4 537-7, 57629-7 ####[facility] LABIA [id number] [place] [address] [place] Monocytes/100 WBC (Bld) 7.0 % Normal [facility] Comment on above: Order Comment: Speci men Type: BLOOD SPECIMENOrdering Facility: [facility] Address: [address] [place] [address] Performed By: #### 4 537-7, 32119-1 ####[facility] LABIA [id number] [place] [address] [place] MYELO% 1.0 % Normal [facility] Comment on above: Order Comment: Speci men Type: BLOOD SPECIMENOrdering Facility: [facility] Address: [address] [place] [address] Performed By: #### 4 537-7, 28436-1 ####[facility] LABIA [id number] [place] [address] [place] Neutrophils (Bld) [#/Vol] 14.95 10*3/uL High 1.45-7.50 [facility] Comment on above: Order Comment: Speci men Type: BLOOD SPECIMENOrdering Facility: [facility] Address: [address] [place] [address] Performed By: #### 4 537-7, 02803-5 ####[facility] LABCLIA [id number] [place] [address] [place] Neutrophils/100 WBC (Bld) 70.0 % Normal [facility] Comment on above: Order Comment: Speci men Type: BLOOD SPECIMENOrdering Facility: [facility] Address: [address] [place] [address] Performed By: #### 4 537-7, 21789-6 ####[facility] LABCLIA [id number] [place] [address] [place] Nucleated RBC (Bld) [#/Vol] 10*3/uL Normal <0.01 [facility] Comment on above: Order Comment: Speci men Type: BLOOD SPECIMENOrdering Facility: [facility] Address: [address] [place] [address] Performed By: #### 4 537-7, 16252-6 ####[facility] LABIA [id number] [place] [address] [place] Nucleated RBC/100 WBC (Bld) [Ratio] 0.0 /100 WBC Normal [facility] Comment on above: Order Comment: Speci men Type: BLOOD SPECIMENOrdering Facility: [facility] Address: [address] [place] [address] Performed By: #### 4 537-7, 04068-9 ####[facility] LABCLIA [id number] [place] [address] [place] Platelet mean volume (Bld) [Entitic vol] 8.6 fL Low 9.0-12.7 [facility] Comment on above: Order Comment: Speci men Type: BLOOD SPECIMENOrdering Facility: [facility] Address: [address] [address] Performed By: #### 4 537-7, 70296-9 ####[facility] LABCLIA [id number] [place] [address] [place] Platelets (Bld) [#/Vol] 465 10*3/uL High 150-400 [facility] Comment on above: Order Comment: Speci men Type: BLOOD SPECIMENOrdering Facility: [facility] Address: [address] [place] [address] Performed By: #### 4 537-7, 07251-6 ####[facility] LABCLIA [id number] [place] [address] [place] Platelets Estimate (Bld) [#/Vol] Increased Normal [facility] Comment on above: Order Comment: Speci men Type: BLOOD SPECIMENOrdering Facility: [facility] Address: [address] [place] [address] Performed By: #### 4 537-7, 31834-8 ####[facility] LABCLIA [id number] [place] [address] [place] Polychromasia LM Ql (Bld) Slight Normal [facility] Comment on above: Order Comment: Speci men Type: BLOOD SPECIMENOrdering Facility: [facility] Address: [address] [place], [place] [address] Performed By: #### 4 537-7, 22225-9 ####[facility] LABCLIA [id number] [place] [address] [place] RBC (Bld) [#/Vol] 4.69 10*6/uL Normal 3.90-5.20 [facility] Comment on above: Order Comment: Speci men Type: BLOOD SPECIMENOrdering Facility: [facility] Address: [address] [place], [place] [address] Performed By: #### 4 537-7, 45946-1 ####[facility] LABCLIA [id number] [place] [address] [place] RED CELL MORPH Reviewed: unremarkable Normal [facility] Comment on above: Order Comment: Speci men Type: BLOOD SPECIMENOrdering Facility: [facility] Address: [address] [place] [place] [address] Performed By: #### 4 537-7, 43582-2 ####[facility] LABCLIA [id number] [place] [address] [place] WBC (Bld) [#/Vol] 21.36 10*3/uL High 3.70-11.00 [facility] Comment on above: Order Comment: Speci men Type: BLOOD SPECIMENOrdering Facility: [facility] Address: [address] [place] [address] Performed By: #### 4 537-7, 28776-2 ####[facility] LABCLIA [id number] [place] [address] [place] WBC Left Shift Ql (Bld) Present Normal [facility] Comment on above: Order Comment: Speci men Type: BLOOD SPECIMENOrdering Facility: [facility] Address: [address] [place] [address] Performed By: #### 4 537-7, 27114-2 ####[facility] LABCLIA [id number] [place] [address] [place] CK SerPl-cCncon 06-24-2022 CK [Catalytic activity/Vol] 37 U/L Low 42-196 [facility] Comment on above: Order Comment: Speci men Type: BLOOD SPECIMENOrdering Facility: [facility] Address: [address] [place] [address] Performed By: #### 2 4323-8, 94576-2, 3084-1, 2157-6 ####[facility] LABCLIA [id number] [address] [address] [place] CNOVon 06-24-2022 CNOV Office Visit (DARNELL ) SHELLY WILSON ([id number]) 1955 F Date Time Provider Department 06/24/22 [...] showing osteoarthritis. Dr Miller her PCP from [facility] in [place] prescribed prednisone 40 mg/d x 5. Reduced [...] Rv 3 (more content not included)... Normal [facility] CRP SerPl-mCncon 06-24-2022 CRP [Mass/Vol] 0.5 mg/dL Normal <0.9 [facility] Comment on above: Order Comment: Speci men Type: BLOOD SPECIMENOrdering Facility: [facility] Address: [address] [place] [address] Performed By: #### 1 988-5, 2885-2 ####[facility] LABCLIA [id number] [place] [address] [place] Comprehensive metabolic 2000 panelon 06-24-2022 Albumin [Mass/Vol] 4.0 g/dL Normal 3.9-4.9 [facility] Comment on above: Order Comment: Speci men Type: BLOOD SPECIMENOrdering Facility: [facility] Address: [address] [place] [address] Performed By: #### 2 4323-8, 85972-6, 3084-1, 2157-6 ####[facility] LABCLIA [id number] [place] [address] [place] ALP [Catalytic activity/Vol] 75 U/L Normal 34-123 [facility] Comment on above: Order Comment: Speci men Type: BLOOD SPECIMENOrdering Facility: [facility] Address: [address] [place] [address] Performed By: #### 2 4323-8, 22808-6, 3084-1, 2156-6 ####[facility] LABCLIA [id number] [address] [place] ALT [Catalytic activity/Vol] 21 U/L Normal 7-38 [facility] Comment on above: Order Comment: Speci men Type: BLOOD SPECIMENOrdering Facility: [facility] Address: [address] [place] [address] Performed By: #### 2 4323-8, 68138-0, 3084-1, 2156-07 ####[facility] LABCLIA [id number] [place] [address] [place] Anion gap [Moles/Vol] 13 mmol/L Normal 9-18 [facility] Comment on above: Order Comment: Speci men Type: BLOOD SPECIMENOrdering Facility: [facility] Address: [address] [place] [address] Performed By: #### 2 4323-8, 78149-6, 3084-1, 2156-07 ####[facility] LABCLIA [id number] [address] [place] AST [Catalytic activity/Vol] 15 U/L Normal 13-35 [facility] Comment on above: Order Comment: Speci men Type: BLOOD SPECIMENOrdering Facility: [facility] Address: [address] [place], [place] [address] Performed By: #### 2 4323-8, 12397-1, 3084-1, 2156-6 ####[facility] LABCLIA [id number] [place] [id number] [place] Bilirubin [Mass/Vol] 0.3 mg/dL Normal 0.2-1.3 [facility] Comment on above: Order Comment: Speci men Type: BLOOD SPECIMENOrdering Facility: [facility] Address: [address] [place] [address] Performed By: #### 2 4323-8, 48499-2, 3084-1, 2156-6 ####[facility] LABCLIA [id number] [place] [address] [place] Calcium [Mass/Vol] 9.8 mg/dL Normal 8.5-10.2 [facility] Comment on above: Order Comment: Speci men Type: BLOOD SPECIMENOrdering Facility: [facility] Address: [address] [place] [address] Performed By: #### 2 4323-8, 58394-2, 308-1, 2156-07 ####[facility] LABCLIA [id number] [place] [address] [place] Chloride [Moles/Vol] 100 mmol/L Normal 97-105 [facility] Comment on above: Order Comment: Speci men Type: BLOOD SPECIMENOrdering Facility: [facility] Address: [address] [place], [place] [address] Performed By: #### 2 4323-8, 64894-2, 308-1, 2156-07 ####[facility] LABCLIA [id number] [place] [address] [place] CO2 [Moles/Vol] 25 mmol/L Normal 22-30 [facility] Comment on above: Order Comment: Speci men Type: BLOOD SPECIMENOrdering Facility: [facility] Address: [address] [place], [place] [address] Performed By: #### 2 4323-8, 86062-6, 3084-1, 2156-6 ####[facility] LABCLIA [id number] [address] OF [facility] Creatinine [Mass/Vol] 0.71 mg/dL Normal 0.58-0.96 [facility] Comment on above: Order Comment: Tam purvis Type: BLOOD SPECIMENOrdering Facility: [facility] Address: [address] [id number] Performed By: #### 2 4323-8, 13677-9, 3084-1, 2156-6 ####[facility] LABIA [id number] [address] ESTIMATED GLOMERULAR FILTRATION RATE 94 mL/min/1.73m??? Normal >=60 [facility] Comment on above: Order Comment: Tam purvis Type: BLOOD SPECIMENOrdering Facility: [facility] Address: [address] [address] Result Comment: Carmen mated Glomerular Filtration Rate [...] actual GFR. Performed By: #### 2 4323-8, 78165-8, 3084-1, 6 ####[facility] LABIA [id number] [address] [place] Glucose [Mass/Vol] 62 mg/dL Low 74-99 [facility] Comment on above: Order Comment: Tam purvis Type: BLOOD SPECIMENOrdering Facility: [facility] Address: [address] [address] Result Comment: The [place] [employer] (ADA) provides guidance for cutoff [...] Standards of Medical Care in Diabetes 2016, [place] [employer]. Diabetes Care. 2016.39(Suppl 1). Performed By: #### 2 4323-8, 92366-2, 3084-1, 2156-6 ####[facility] LABCLIA [id number] [place] [address] [place] Potassium [Moles/Vol] 4.2 mmol/L Normal 3.7-5.1 [facility] Comment on above: Order Comment: Tam purvis Type: BLOOD SPECIMENOrdering Facility: [facility] Address: [address] [place] [address] Performed By: #### 2 4323-8, 87303-5, 3083-, 2156-07 ####[facility] LABIA [id number] [place] [address] [place] Protein [Mass/Vol] 6.8 g/dL Normal 6.3-8.0 [facility] Comment on above: Order Comment: Tam purvis Type: BLOOD SPECIMENOrdering Facility: [facility] Address: [address] [place] [address] Performed By: #### 2 4323-8, 24783-6, 3083-, 2156-07 ####[facility] LABCLIA [id number] [place] [address] [place] Sodium [Moles/Vol] 138 mmol/L Normal 136-144 [facility] Comment on above: Order Comment: Tam purvis Type: BLOOD SPECIMENOrdering Facility: [facility] Address: [address] [place] [address] Performed By: #### 2 4323-8, 81066-6, 308-1, 2156-07 ####[facility] LABCLIA [id number] [place] [address] [place] Urea nitrogen [Mass/Vol] 17 mg/dL Normal 7-21 [facility] Comment on above: Order Comment: Speci men Type: BLOOD SPECIMENOrdering Facility: [facility] Address: [address] [place] [address] Performed By: #### 2 4323-8, 09849-0, 3084-1, 2157-6 ####[facility] LABIA [id number] [place] [address] [place] Cyclic citrullinated peptide IgG Qnon 06-24-2022 CCP ANTIBODY IGG QUALITATIVE Positive Abnormal Negative [facility] Comment on above: Order Comment: Speci men Type: BLOOD SPECIMENOrdering Facility: [facility] Address: [address] [place] [address] Performed By: #### 4 7383-5, 07911-7 ####[facility] LABIA [id number] [place] [address] [place] ESR Westergren method (Bld) [Velocity]on 06-24-2022 ESR (Bld) [Velocity] 21 mm/h High 0-20 [facility] Comment on above: Order Comment: Speci men Type: BLOOD SPECIMENOrdering Facility: [facility] Address: [address] [place] [address] Performed By: #### 4 537-7, 51104-6 ####[facility] [id number] [place] [address] [place] No Panel Informationon 06-24 [facility] Nuclear Ab IA Ql (S)on 06-24 BABATUNDE BY EIA, QUAL Negative Normal Negative [facility] Comment on above: Order Comment: Speci men Type: BLOOD SPECIMENOrdering Facility: [facility] Address: [address] [place] [address] Result Comment: The qualitative antinuclear antibody screen test performed using enzyme immunoassay including the following antigens: dsDNA, histones, SS-A, SS-B, Sm, Sm/SAUSAGE MAKER, Scl-70, Elham-1, and centromeric antigens. Performed By: #### 4 7383-5, 20560-5 ####[facility] LABIA [id number] [place] [address] [place] PROTEIN ELECTROPHORESIS SERU M (P)on 06-24-2022 Albumin [Mass/Vol] 3.51 g/dL Normal 3.43-5.41 [facility] Comment on above: Order Comment: Speci men Type: BLOOD SPECIMENOrdering Facility: [facility] Address: [address] [place] [address] Performed By: #### L [id number] ####[facility] [id number] [place] [address] [place] Alpha 1 globulin Elph [Mass/Vol] 0.36 g/dL Normal 0.18-0.43 [facility] Comment on above: Order Comment: Speci men Type: BLOOD SPECIMENOrdering Facility: [facility] Address: [address] [address] Performed By: #### L [id number] ####[facility] [id number] [address] [place] Alpha 2 globulin Elph [Mass/Vol] 1.04 g/dL High 0.42-0.98 [facility] Comment on above: Order Comment: Speci men Type: BLOOD SPECIMENOrdering Facility: [facility] Address: [address] [address] Performed By: #### L [id number] ####[facility] LABIA [id number] [place] [address] [place] Beta globulin Elph [Mass/Vol] 0.88 g/dL Normal 0.61-1.17 [facility] Comment on above: Order Comment: Speci men Type: BLOOD SPECIMENOrdering Facility: [facility] Address: [address] [address] Performed By: #### L [id number] ####[facility] LABCLIA [id number] [address] Gamma globulin Elph [Mass/Vol] 0.71 g/dL Normal 0.53-1.51 [facility] Comment on above: Order Comment: Speci men Type: BLOOD SPECIMENOrdering Facility: [facility] Address: [address] [place] [address] Performed By: #### L [id number] ####[facility] LABCLIA [id number] [address] M-PROTEIN LOCATION Normal [facility] Comment on above: Order Comment: Speci men Type: BLOOD SPECIMENOrdering Facility: [facility] Address: [address] [place] [address] Result Comment: Not Applicable. Performed By: #### L [id number] ####[facility] LABIA [id number] [address] Protein Fractions [Interp] No definitive M protein is identified on protein electrophoresis. Normal No definitive M protein is identified on protein electrophoresi s. [facility] Comment on above: Order Comment: Speci men Type: BLOOD SPECIMENOrdering Facility: [facility] Address: [address] [place] [address] Performed By: #### L [id number] ####[facility] LABIA [id number] [address] Protein.monoclonal Elph [Mass/Vol] 0.00 g/dL Normal <=0.00 [facility] Comment on above: Order Comment: Speci men Type: BLOOD SPECIMENOrdering Facility: [facility] Address: [address] [place] [address] Performed By: #### L [id number] ####[facility] LABIA [id number] [address] OF [facility] SPE STAFF REVIEW Reviewed by Dr. Jacob Benitez MD [facility] Comment on above: Order Comment: Speci men Type: BLOOD SPECIMENOrdering Facility: [facility] Address: [address] [place] [address] Performed By: #### L [id number] ####[facility] LABCLIA [id number] [address] [place] Prot SerPl-mCncon 06-24-2022 Protein [Mass/Vol] 6.5 g/dL Normal 6.3-8.0 [facility] Comment on above: Order Comment: Speci men Type: BLOOD SPECIMENOrdering Facility: [facility] Address: [address] [place] [address] Performed By: #### 1 988-5, 2885-2 ####[facility] LABCLIA [id number] [address] Rheumatoid fact SerPl-aCncon 06-24-2022 Rheumatoid factor Qn [IU]/mL Normal <16 [facility] Comment on above: Order Comment: Speci men Type: BLOOD SPECIMENOrdering Facility: [facility] Address: [address] [place] [address] Performed By: #### 2 4323-8, 45959-6, 3084-1, 2156-6 ####[facility] LABCLIA [id number] [address] [place] Urate SerPl-mCncon Urate [Mass/Vol] 4.4 mg/dL Normal 2.5-6.6 [facility] Comment on above: Order Comment: Speci men Type: BLOOD SPECIMENOrdering Facility: [facility] Address: [address] [place], [place] [address] Performed By: #### 2 4323-8, 90567-5, 3084-1, 2156-6 ####[facility] LABCLIA [id number] [address] [address], [place] [address] [place] [facility] XR CHEST 2V FRONTAL/LATon XR CHEST 2V [...] Exaggerated thoracic kyphosis with degenerative changes. IMPRESSION: Legal Analyst: RENA Transcribe Date/Time: Jun 27 2022 2:09P Dictated by : LEE HIGGINS MD This examination was interpreted and the report reviewed and electronically signed by: LEE HIGGINS MD on Jun 27 2022 2:10PM EST [id number] N Normal [facility] XR FOOT 3V AP/LAT/OBL BILon 06-24-2022 XR [...] IMPRESSION: Degenerative arthritis. No evidence of erosions. Legal Analyst: [facility] Transcribe Date/Time: Jun 24 2022 3:36P Dictated by : REA MILLER MD This examination was interpreted and the report reviewed and electronically signed by: REA MILLER MD on Jun 24 2022 3:37PM EST [id number] N Normal [facility] XR HAND/WRIST SURVEY 1V PA B ILon [...] IMPRESSION: Degenerative arthritis. No evidence of erosions. Legal Analyst: [facility] Transcribe Date/Time: Jun 24 2022 3:34P Dictated by : REA MILLER MD This examination was interpreted and the report reviewed and electronically signed by: REA MILLER MD on Jun 24 2022 3:36PM EST [id number] N Normal [facility] cCP IgG SerPl-aCncon 023 Cyclic citrullinated peptide IgG Qn 78 Units High <20 [facility] Comment on above: Order Comment: Speci men Type: BLOOD SPECIMENOrdering Facility: [facility] Address: [address] [id number] Performed By: #### 4 7383-5, 94593-9 ####[facility] LABCLIA [id number] [address] [place] VEN[employer] DOPPLER BENJAMIN Leonard [...] by: WADE YU Date: 2022-06-19 20:02 Normal [facility] Coding Summary.on 06-05-2022 Coding Summary. CD:[id number] W w+PGhlYWQ+ZZ7DWXPoZ94 agAEyzP4rY3ZNPJyPZmcr WUHFRGvKElUvqwWaVA4sx XNjZXJu IC8+SK4tTERxTsxolRWqa 5A3bOB1T04ujx1xVZlrpM L9COGwAxRwjgduj0byzAi 6IDcuNmluOyBt DSZusU64NVC8vW85Zz00c BDjrQBun8coiAc3MfOgUA DnGEN1vEuyHXior8AtZEN hA24skYXac0M7 GOZceLgtoDIyFjCggOO2l C6tXBloegonn6oriyerTd p5va37tHXmb1Z5aCB2H3Y txbU4RJIckGGb ZkbfrKIScL2nmfybv7gzu aieTwDqCJRcMTo3JPr5VS BhwCluGqHlQW78OQR4MPW qolPqV0QvWHEs lRhvFdX7q0Q2Ra1EJ3CNT vcqF5UFUHJWTKafxXF+PC 06ok78S6AsYqslEeq2EHL aGPU0vBM1kE6s AYZnBUuza6E0jCM8U1Wtq xHtad3ti2aaTPQdUNltQ0 5kpOBsn2Y4KNIjaSU9HLR hqFgjFbWiaY48 Oyc+WAOzrBoir5NpOmojn 9vkl8otiEh3VnqnXETtee HngBohWYJ0b4UmNn5fFDW wpNT4hLN0dX6k SrRiRkD6XWnsI871NgEwo BUyArwhR93nY4IymAY+PH AxCfq8TLRobJyjSZ6bI0T hZGRpbmctbGVm rUvrXG1uIGWslvauRNBkt M0bMILlL9l2EdBoJxJ0IT upX5YjINRargvhJq37qG3 mNdZaAzN0RUaq C6LhbsN1GGCisZNtNCnkW TZ1E17ac6J0VCBlXYOeAK U4mGC6qH2khQtobalrfIM mdDsgdmVydGlj FTbiRGntG843IVEuoZjdS kNvZGluZyBEYXRlOiAgMD QvMTkvMjAyMzwvdGQ+PHR kSBQ9hVrrEJXh aXLeTPxuHr3kkMvqaNksS U9sWCIsvdctOOIqpJ2xLJ CkrGQajCkeOW4yADSavfq ku949FnQhITF5 EBNunJEhC2BllT0sVsBlN VVdRAHgG2ApjDNaWJqdG2 81RTpuFzX4WMHiufRuE1A sLWFsaWduOiB0 s5T9Sv8Lo2UpdxhiN7Mzr OWoJmEbVzkjBZo7D3YpEn wvdHI+TK01TYTaUC93ZNq 0GLY5tPkcMRli RGVwE1MjnO0vOoOkOGXzE GRkOyc+PHRhYmxlIHdpZH RoPScxMDAlJyBzdHlsZT0 kQq4cVYIrYDUn iRwqjYKwCdPyx7xkVEIkX SeuFT6kpRnqR4PcpKL9CF Gmd9h9Ii94K25iC9ZakYK +FTAqpAO2tAU3 mW7rUvWzCrL1MEllN392T oKehBRdEmluy2afg9fwcB s5SyB0GPBwmbXvlQkdDZV 8s3WtDs09W03t IHdpZHRoPSIxNSUiIHZhb Wgpzp5nyM9vSr3+PGNvbC O1aRX5xI1pMjBuKiQ4HLg bX934PpXfcXNr Jrlst3qqj9fdgNj7JnYxJ ILxpeRszInfBAE3u0AbGy 97A1UvnRcmt1DdHnc3us1 1uLWwm9I6jKV2 D1FuCPWfrmqyiALjsEbmE X7kRUZceqofGGZlkH6jYW UoV3p6YlDdJbK5ZOwkR9T iznB4BUEqqIVq LHAbkATLzH9eilxae9zod vgsFrKsLZVaFWx8LWz8TP JhwXguKpByCLH5TyA2XRJ 5nXTwkG8ufWcy rynxnI7xMuq+PXI9bQJvh WEKCX1yIbyliPP+PHRkIH N2yTubOMijEFDwjZ3yJHV pD4q9QrZqVjH6 VUysU8IrjhW3NKKucSWwI MFnfNNUbB1vikgsj2bqli htTbWlDSBsSKt5EWt8KIN saWduOiBsZWZ0 ToH3QSA6aENwxM0klGoov atjyR3bFsm+QmlydGggRG V9OYo4D8VcBjd7SPAlcTd rZG9diVIjUTeu Vl3jlWkzlZfrWA2lMCOev ixsg771QkNvp9wgZTXoeL NsSBkoPZF5Q96ac9O4NPW iZMEvAON2mYP5 bD4doReyurxugANniRpwn zKgsQbvZAghVTntB897AQ BaiOmhNfKcKYl7U6NhQia 4KXBacKlcII5y hACcGWdrKg2bmMgovPwaF N5iZNKdgkiyj418GkJfb6 zxDTVhcNXfXUtwNDT3I18 fa9B9NONsWWWe ICO3nHD7xL8lrUovhxbiz GVmdDsgdmVydGljYWwtYW uhK429PKEmzChpUaDjbMa 7I6YjBxk6GJRx xTxnEX0xgMMxRUxkQn8yi BasnWytPN8dGCMgzckyp5 17QqZca5woARKziIYxYHy dLJZ0B44bd6K3 KCNwAUXoHXH1eVY0oK7sd GlnbjogbGVmdDsgdmVydG xoHNoiEJdtG665BOMibXq nPlBhdGllbnQg GLlmXSo7S4XqXcmebAW+P N45QBZuYM49fCVjrXZha3 dxlRl2OzAqHDQxKBB7vGt kATrcs0CrQBZl O90etGStu1A1XUZulGueo JFeYjZvvWL4fZ1pFCkkti kzm4ffzplqPndpk8aqsq9 3rR07W03eVEop ZHRoPSIzMCUiIHZhbGlnb d1kvU1fWc4+IYVmsGW2fS M1kW8tAEJfRaL9RGydV62 9InRvcCIvPjxj w5nal8mesMf1MfX1RUPss tLcpScgBPM7b5RbBa88G8 9sIHdpZHRoPSIyMCUiIHZ xkSjcdb3hdA9f Ii8+JOBxwJL7tJZ4qC9xA dFpCcF6YDhjG654YtTzmA LuGraqF62xK7UjqNL+PHR jXog4DDSlxDcf ZZ9yiKEePYhcWp2fFDK8H rKnPuEaTJsyW7VrEZAnrv hzorqyzQU8UJCyFSEbmW2 2Gi2nnDhqFGDt hURYjW7hoxick4ezmehzV nDwUMYcQHq4JEu5LOCenG kqQlPlMOJ2OnR6UVW2oHO fwB2jxKoxrtuu wX1vY8OtYJZmxgfsSx47w Y4kJgUkRxR2ZSgiUgt+Qk qcM4CRDiagFy4SFo9sYSr vdGQ+PHRkIHN0 rOmqLVupPTIhyU1fOUEjP 7a4LtRuKaR3TQweC7TqHM AajhbsJd74mI0fTwLkDsF 5SPnwO9EbkvT4 BNDtwESgVGrlXUL5S82dq 0C3KIXyLAVxLTH2pAP3gN 1hbGlnbjogbGVmdDsgdmV ydGljYWwtYWxp L446CCMnaWvhPsA0PsXpY rS1XYC8Y0JjCgb4SGJulI svQP1puPGtCQveJo3vcXn fcJseNH8nZJAn tebqVTYtfP7eOCOcaQKsx UjvTK9mTXNmrxtss519Qu DrXFJ7ZLWxxRTsF7UboF3 yOiAjMDAwMDAw Y1XdfPVaWGofR743QXlmJ tV2WCUfswTlT1KrOILjxN jkHkY8a1L9Jy66IxDXVIR yczwvdGQ+PHRk LRE1gTacBSawUZVytF2mT LKlG8k7PxShTmF6ASczA7 VfNWEkqcbhQq26qJ0cLnH wIuX4HMzcT7Ut mrE4GFGkvGLaVJsuGEX1G 64zr9I8QVBeGTYgYMM5tK Q1cA3ixTiaysestTThbKs gdmVydGljYWwt NEkxF403WNJiwIcuXoQwa WFsZTwvdGQ+KXMrMFB0aX yrIWfgJDCnzU9eTOQtZ0x 1HgAsHdX6ZHux E3QpGFTdztssRi58bZ4lQ vYmUsR9QAujJ6JqaaE2SG ZtuARjQTxmIJQ9M50zp7G 7TUSdMQNeJZP4 sRJ4cK9agRcnayhecFOgr DsgdmVydGljYWwtYWxpZ2 12WSWgyNsuCt27pXGutZc pjdV6U0PcQqhf dHI+IN58IQTdGD86sCOqt ZTap7fvzVu7NwKfQZLjUN Y2vRxdJHunp3NwWLPdK86 coMVuo7U7GGPd iRmauSVwInAtfKC7bA8yP Umhoxpgm1dvgpchKrznx5 nzjr46kI86W14oFDpqIYR oPSIzMCUiIHZh mVkfrr8ikB4lXb7+PGNvb UN4vOT7wX6rUdAhTqT5TK jrW521FbSitUMfHudju4z mj5gtnGi9WmKk EPEnuyHsbWmbBEB6n8OmG u65V51hCIgrTDApCTEkLJ VnJKZeeFitfo5rpQ9nYr2 +XK1vw6falk75 xO79yXI+QXCsMRG9sNjpZ PxuERWciJ5lTZvsDrZ0YR PmPoIvyE46mXFoSLdqUr7 buKjbdCifKX0y RBZbtkubw885LhNej9yyK ATyvGEmUFgzWPF6M48fe5 F0BNPbCUBmXDO0nHI6tP2 hbGlnbjogbGVm dDsgdmVydGljYWwtYWxpZ 221ODAfhAwdYyVywBQzD5 nfgwCXST3pVhslyBB+PHR pZYM3oJueJSsu GELgoE2aVHYiV6e8PsTtD tQ8UQbqQ2BlziF0HXOknQ GzVTBvdJOHsY0wjwkhe4l vcjogIzAwMDAw WFj7IRy7HLDtbUpfRdPgC CQ0EmC5OLB6fYKykC4mqB fgicitaR2jExo+RklOOjw vdGQ+PHRkIHN0 qAirZKloRNOznH0uHYSmL 5t5CzXpHhV2CYhrS7Dusn V5EUVhfYGfOCPunAIRbE9 ujqeta4scxjzt YmYmNTDbWDp0JMo6DEMyn AgsZpJkSRA4AbG1IHI7dU SagX0mrIrsddtwhR6vYxr +TVJOOjwvdGQ+ VQBlQZL8mTafRCitHAYmh A8uEWMhU4k2UcFxBhX4HF vdT6MkbfB2FCDhbMXdSCL yjBUBzP3qkpbh g0yjczhhVhOrHXEzOZg4J Nc7AEZvoLbiJoUdDYD6Ng W4QPF9cJGppU6ilWaaamz doG9dQbx+UGF5 IWC3FR05ID50J1CtCtjwa GFibGU+PHRhYmxlIHdpZH RoPScxMDAlJyBzdHlsZT0 yYw9rSHNwUBKl bGxhcHNl (more content not included)... Normal [facility] MRI Spine Lumbar w/o Contras ton [...] HERMINIO Technologist: FAYE Technical Comments None Normal [facility] XR Spine Lumbosacral Minimum 4 Viewson [...] spine. Lumbar vertebral body heights are maintained. Dbto-el-hodgwngo intervertebral disc height loss throughout the lumbar [...] in mGy = na DAP = na [facility] Consent for Treatmenton 05-18 Consent for Treatment [id number]#1 .00CD:127 [facility] RAD - MRI Screening Formon 0 05-30-2022 RAD - MRI Screening Form [id number]# 1.00CD:127 [facility] Physician Orderon 05-23-2022 Physician Order [id number]#1 .00CD:127 [facility] Physician Order [id number]# 1.00CD:127 [facility] Physician Order [id number]# 1.00CD:127 [facility] Workers' Comp Officeon 05-23 Workers' Comp Office [id number]# 2.00CD:127 [facility] Coding Summary.on 05-14-2022 Coding Summary. CD:[id number] W w+PGhlYWQ+QC9ZTPOpX18 wsLBjrN5nI2DAQRjSJonf YQPXHMsITaTetjOyET6lq XNjZXJu IC8+NC8tGQPiVbzumFYhj 1D5pWU9B55ujm1hRMnbtR Q7KXSxNfJjnayyv1zmsUj 6IDcuNmluOyBt PGCbgE94AUX8eI60Jy43q EMxlCYgg1ldiLh1LxQwIX RvROL3sQfcOCwkl2VhLTW eI49tiGKzr5A7 TBJyxVmlsSPnXwWiqHD6w T5yIJyhxujfw3ehuhzxXv l4hn31nCIxg9O1qJM0E7T vnjF8NBFcuRAk AoeduDJItK9rwjoqw1dcf yylQaHoLIWcHUi2LIq6EC GikRjeBxWgQZ73BJC9EFJ fjcDoX1FtLDRk pUqcFvT0e7J1Mr6VU0RKD wzgR5ICINRSQZlkhPO+PC 09fg54N3NoFvalYyr1QTB nIZG2iLA3yP2j JWEsZReds2M1kXR9W6Cgj iGdmk1bo2hnAYHzKNbxW0 4vgHMie3M0HXReuGV9ELN afNmmQlEgjW61 Oyc+WKEiuNscn2XaSijlm 9jgq8uojUq9TzdeYXXcey AkxTkvFKJ0g2EaAr5gZGY ubHX9pDH9qG8g VgOsNqE4MYmtB703LdAbv SUjKhprP67tK8HpxEC+PH GlChc6MIVvvNtfBE0wM9V hZGRpbmctbGVm cNwpLY3oNJFaettzMVGug M9gLOCmC8f4DjQwZfY0AB oqB6TlKAVejhcvAh30mV6 yKrMfUsX5EZjt P5EkbnH1OSKqmSTvQAbqT ME2A37ji6G8QGDrUFJuHN R8aTZ3qP0zbRhhqmkzkTG mdDsgdmVydGlj OVpkXKrtZ118OYArbGepJ kNvZGluZyBEYXRlOiAgMD MvMjgvMjAyMzwvdGQ+PHR mRNB0yTshZXJl jMFpFHalXm8qsUofzPynH Q7pBSOclxldSTJkrB4wYA XydDCebRblHV0bHCQqptk hu048VnCbOUQ2 DXTimLBnT9NigK6eKuRlE MRgESLrL9GdyUMzUNprA3 16VAavElU5FANhriPqD8N sLWFsaWduOiB0 k6T0Sl2Da3PvknqgB0Baa PHdNeUiXwyhGLf2A4JlIt wvdHI+KE35UXRjJE82SBf 1WSY0fQtuLAyh UDArJ6HgtJ7cLxKdKORsD GRkOyc+PHRhYmxlIHdpZH RoPScxMDAlJyBzdHlsZT0 oDk1fSKSoERGy eGlzsUUzDyBiy1utFDBcT ZepSR4eaCtnL0AetCB9KL Xxx0e4Sc74W78dP8CziEZ +EPIvwYM3dAT6 zO0bTiEbXmZ4HUacU941C nEdhNPuQychz4jsu0ngoO c9PrS0GRPiigRwnUucLUR 9j2HkZf50H76u IHdpZHRoPSIxNSUiIHZhb Fdwzg9xjM5lIn0+PGNvbC Z4tOB1lZ5rWjClGvN6GTq iR927DxUohVHh Ridwl5unc4qxwCw0QsReK QHmzpYwbMlvLYQ1m5WvDl 64K9TgdCedv2RvWwk3eg0 6lLNdt3V5dUT0 K9AjXBWttfdrdJJdrZxlJ W4yXKTbmdjgSTSapI1zKB IqF5e3RlMfKfU7MKjzN6R kswC4WUTvuJUl NTYtsJLDgX1mycile0iyg tuxKcYfWQEpXFo9RQv4IG DixIrpGnSaOVJ0VsY4PTT 8qXQusJ8qqFux ggitoQ5nEro+QKA1dJFvi GEOHU4kFythjYM+PHRkIH E7rDurJZinQBUthR9yGHE cB8s1NmMuHvL2 TVlbH5YijeR2NZMenXEuL MWxjWYLlU1xevflu2plgv ktOeNlOWNtMJz8NLk4PXR saWduOiBsZWZ0 HdG3JUU2vEDooH9idIfwu vghiA1aAer+QmlydGggRG V4AZr4P4EmQsu7ZBZgfCr fXA8hpQVoYZoa Yv8skTtzcIpqQD9pMFQup bbor995SeTul8kfMHZksB CqXQibPQG7R50zo1A6ZKZ nLXOzWAM7jSM1 mC6gmRxvlslrqZRotGtex vArzImnOPmeDIjlZ977PB FxvXbdRdOfLVe1W3DsOhy 5BARibMhsMG9s pNCyXTcfPg7bjKzcgZoaU N4aKYReiyiei052JbOwo1 oqDGLghHEjGCyxRDV4J26 qj1I4MHShOINr VBH9fWV4bH4krMakjaawz GVmdDsgdmVydGljYWwtYW osA743WWOizCfhVfInuTp 8Y9ItUgc7OAZw eSwwCW6mqCJhJVeoSy3ge SkxkPluAD6kTJSdezsmh7 69HzYxs3jaMMMakKMnSLz fBXQ5Q31fe9A4 YHAnBLSsYJJ8oIZ7wW7ho GlnbjogbGVmdDsgdmVydG wwBAnlVVthQ093EJHfqGf nPlBhdGllbnQg MPcvBPm1K8IaRfpfjZF+P D43DUIuOD42jKCksWSre1 npcDt7ScUsSSTnTQZ8bGd lZUspl8LwEBFg N09zkKNht0S3RGTjkWgcq KEjSvDivTY5xB5yIOrqjk ykq2gyhtbaNcrkk9wmqz2 9wB12S66nFXhm ZHRoPSIzMCUiIHZhbGlnb x2ehR7oUk4+TSSpaDJ7oH D1wS2nLWAfUvO8JZfyW42 9InRvcCIvPjxj t9nkw1cclMc9FeW0ZPSai cOihVqnGAS3m0JsYv79X0 9sIHdpZHRoPSIyMCUiIHZ cfEpzku9epK7v Ii8+XZTdgGV2qOJ5lI6tA eZjXtR8ELncQ723PbTfaD DwCteaB63oU2MiiPJ+PHR uDvo5BFAcwIri WT9wrHNxLAyfVz6nMAM9A tIrJeKlWTadI8WfXBHxnp cpvcmkkFT1AFYjWYKokE3 5De9esQpmTRXx lNIPtH4zuliwq1msbmuvZ pDpOZEdUEz8QEe5YTTumB qrHvWvFBC2UiU3XAZ2mPP dhS1szAsyzimk sV9nC7OvGDQzmgtiGl97r W5kRdXzViG6KMweLev+Qk pxV4UKJpnhTj4QZn2kFJg vdGQ+PHRkIHN0 dLcpBRqtZEGorO7sZWIfC 5d3OqRoIkC0LSskY3GxTJ GmkdgpLb52bD6cJyMsYyU 5BCzgO1KditX7 IYYeuFFtUNmeIUO0G05zh 6F6UBEnKAGiEYW1iPX3aB 1hbGlnbjogbGVmdDsgdmV ydGljYWwtYWxp R623ZPReiMrkRrD8JgYoI cQ8FKL4Q0NzPnk0SDCnsB tfPQ0pbVGeWDevXr1vvNg pmPttJQ3oWRPr qsylFLPbqP7nSNUoeAIhf MnjWY8bGDMbvcoud035Pm WsVUT3BZYcnDBwL4CljN1 yOiAjMDAwMDAw X5QxqWVpYClsF415EMjgJ eP3KYFpxcDcC0ZgFJBnlJ wiRyP1g0Q9Nj91DuZBDUL yczwvdGQ+PHRk HRZ9sVigOCagEULouD3nL CKxG5e8DbLgPkX4MInyK1 EmCFZsafkfTg08uW6uEfU hWgP0MDzfW3Um yhJ1RWJnmILzDIbzGNF5P 56ks9U4RNHiHVBrUSK7kV P5nO1osWqtutoplGUjwCy gdmVydGljYWwt TGndK999IMRxhAlxKvAqf WFsZTwvdGQ+WHToEAW0pW thJIddNOFjcV4fCWKjP6j 1UuPfDwU9SNuc J8RdQMDudpdvIk34lH0rP iZkAqY6HQivK1SlrnN0ED BvfKKpNOlwQAD2I61rq4L 0RJOeCRShTHA0 hJE1cW2bzZeybhcupOXem DsgdmVydGljYWwtYWxpZ2 17QCJyfSinLzByeH9tFPS uYWdlbWVudDwv dGQ+WM91dt26P4PdLrzaU ys3LBNuXCN2tQN7uA0hTC GwOEldm3K8cGG9H3QqyeA dwr6pw8vvGEMf UFcxH46dpGGsb0S1PTMrr UB9FVOggPpoRpQkvT54Wh c+BIQucBfua8RsXeyvy2u yh0bjtVv8FmRy JRXrvsAtkFwbGEC9b2RpD n26H30mOHvlYJVvNCSaCJ JdOURteGwgih8txX5mZc3 +VEHefSD7mFK0 cP5uGuAqWqE4NJniY813P lOwdFEhVnmbt8lzv3pfxX p9WxQpZRCntuQwvMbdFZC 8t8XpPn92I8Sd pIpoo5RnGsx7iw91tTVzz 1V0pUU8K4VcAMZbtgjanW DqfKthQI7mKFBckwxrWHX ocE6rVJIaW6x4 RaAwHuD9KVzuI4CvyeN6K KQgkLCxCQOsuPEUwR1zkt qos7qxgxeyChGsUBBySGp 0QRs7TRRwfPzr RqNjONR0TpS4IZB0kGZrq T7hjEayaglsoU2eJwe+UG d1r5qrnIUpOW7rzHA8NF7 8ZR95cVQle6Q3 fJB4Z8RsMSUadqwrscrfk NB9UAMgCPExzH88At8sdQ liIq1nIOClPJV2YSUukQW qG3NpwL9lVaCo DYWpVAYnR0HzoPLqWLlnD 401QTupBwA5GTGfwcStW9 PzHWJgoVfbKxM6j6U8Lt3 JOF87VN90IN34 zYKkr6R6tVV1G5GcMTNfq nftrplstKI2BWBtVNRfeA 76Ha0wxFdtFn8kIPQvIJP 1PNJnxVHvN7Nt uO6zPxViJNUqJYZwX1Ejb ZGdXAymK535QIgtWcK3TR SjntBqZ3BvHDBqaFhwQjN 2f0L6Pi9QLg61 HT13EA96aSOqc5X1uVA8C 5ZiXSNtziumxetswCD6XV OkSFAykF96Ax7goLukRd9 lQBNsLBD4RYUg zOQdR3VdrA0dZoOxDGCiV BOzO6AulWMpFCkvI029UE mjWhJ8EAKeglArQ5QdKLU kaRtlZtM4g0H7 Rw8PXHvxrxo5H6OaRbgou HI+UB37TXDvEQ52yPMkuL Rjs7nzrLc2UpOxSKScJPB 4lDanJAwpl8Eg EBRrU46a (more content not included)... Normal [facility] US KIDNEYSon 05-14-2022 US KIDNEYS EXAMINATION: [...] by: SOFIE PATTERSON Date: 2022-05-14 14:20 Normal [facility] Consent for Treatmenton 04-18 Consent for Treatment [id number]# 1.00CD:127 Normal [facility] Legal Correspondence Officeo n 05-09-2022 Legal Correspondence Office [id number]# 1.00CD:127 Normal [facility] Office/Clinic Note-Physician on 05-09-2022 Office/Clinic Note-Physician [id number]# 1.00CD:127 Normal [facility] Patient Correspondenceon Patient Correspondence [id number]# 1.00CD:127 Normal [facility] Patient Correspondence [id number]# 1.00CD:127 Normal [facility] Patient Correspondence [id number]# 1.00CD:127 Normal [facility] Patient History Officeon Patient History Office [id number]# 1.00CD:127 Normal [facility] INSULINon 04-26-2022 Insulin 25.3 uIU/mL Critically high 2.6-24.[address] [facility] Comment on above: Performed By: #### I NSULIN ####[facility] [address] [place] [address]Dr. Marion Bullard CBC AUTO DIFFon 04-25-2022 BASO # 0.1 103/ul Normal 0.0-0.1 [facility] Comment on above: Performed By: #### C BC #### [facility] [address] [address] [address] Marion Bullard Basophils/100 WBC (Bld) 0.6 % Normal 0.2-2.0 [facility] Comment on above: Performed By: #### C BC #### [facility] [address] [address] [address] Marion Bullard EO # 0.2 103/ul Normal 0.0-0.7 [facility] Comment on above: Performed By: #### C BC #### [facility] [address] [address] [address] Marion Bullard Eosinophils/100 WBC (Bld) 1.1 % Normal 0.9-7.0 [facility] Comment on above: Performed By: #### C BC #### [facility] [address] [address] [address] Marion Bullard Erythrocyte distribution width (RBC) [Ratio] 12.7 % Normal 11.0-15.0 [facility] Comment on above: Performed By: #### C BC #### [facility] [address] [address] [address] Marion Bullard Hematocrit (Bld) [Volume fraction] 43.8 % Normal 36.0-48.0 [facility] Comment on above: Performed By: #### C BC #### [facility] [address] [place] [address] Dr. Marion Bullard Hemoglobin (Bld) [Mass/Vol] 14.6 g/dL Normal 12.0-16.0 [facility] Comment on above: Performed By: #### C BC #### [facility] [address] [place] [address] Dr. Marion Bullard IG # 0.11 10e3/ul Critically high 0.00-0.03 [facility] Comment on above: Performed By: #### C BC #### [facility] [address] [place] [address] Dr. Marion Bullard IG % 0.7 % Critically high 0.0-0.5 [facility] Comment on above: Performed By: #### C BC #### [facility] [address] [place] [address] Dr. Marion Bullard LYMPH # 3.1 103/ul Normal 1.2-3.8 [facility] Comment on above: Performed By: #### C BC #### [facility] [address] [place] [address] Dr. Marion Bullard Lymphocytes/100 WBC (Bld) 19.4 % Critically low 20.5-60.0 [facility] Comment on above: Performed By: #### C BC #### [facility] [address] [place] [address] Dr. Marion Bullard MANUAL DIFF REQ NO Normal [facility] Comment on above: Performed By: #### C BC #### [facility] [address] [place] [address] Dr. Marion Bullard MCH (RBC) [Entitic mass] 29.9 pg Normal 26.7-34.0 [facility] Comment on above: Performed By: #### C BC #### [facility] [address] [place] [address] Dr. Marion Bullard MCHC (RBC) [Mass/Vol] 33.3 g/dL Normal 29.9-35.2 [facility] Comment on above: Performed By: #### C BC #### [facility] [address] [address] [address] Marion Bullard MCV (RBC) [Entitic vol] 89.8 fL Normal 81.0-99.0 [facility] Comment on above: Performed By: #### C BC #### [facility] [address] [address] [address] Marion Bullard MONO # 1.3 103/ul Critically high 0.3-0.8 [facility] Comment on above: Performed By: #### C BC #### [facility] [address] [address] [address] Marion Bullard Monocytes/100 WBC (Bld) 8.1 % Normal 1.7-12.0 [facility] Comment on above: Performed By: #### C BC #### [facility] [address] [address] [address] Marion Bullard NEUT # 11.3 103/ul Critically high 1.4-6.[address] [facility] Comment on above: Performed By: #### C BC #### [facility] [address] [address] [address] Marion Bullard Neutrophils/100 WBC (Bld) 70.1 % Normal 43.0-75.0 [facility] Comment on above: Performed By: #### C BC #### [facility] [address] [place] [address] Dr. Marion Bullard Platelet mean volume (Bld) [Entitic vol] 8.5 fL Critically low 9.5-13.5 [facility] Comment on above: Performed By: #### C BC #### [facility] [address] [address] [address] Marion Bullard PLT 488 103/ul Critically high 150-450 [facility] Comment on above: Performed By: #### C BC #### [facility] [address] [address] [address] Marion Bullard RBC 4.88 106/ul Normal 4.20-5.40 [facility] Comment on above: Performed By: #### C BC #### [facility] [address] [address] [address] Marion Bullard WBC 16.1 103/ul Critically high 4.0-11.0 [facility] Comment on above: Performed By: #### C BC #### [facility] [address] [address] [address] Marion Bullard FREE THYROXINE INDEX T7on FTI 2.69 Normal 1.30-4.50 [facility] Comment on above: Performed By: #### L IPID, CMP, T7, TSH ####[facility] [address] [place] [id number]. Marion Bullard T3U 34.0 % Normal 30.0-39.0 [facility] Comment on above: Performed By: #### L IPID, CMP, T7, TSH ####[facility] [address] [place] [id number] Bullard T4 [Mass/Vol] 7.90 ug/dL Normal 4.80-13.90 [facility] Comment on above: Performed By: #### L IPID, CMP, T7, TSH ####[facility] [address] [place] [address]DrSolitario Bullard GLYCOHEMOGLOBIN A1Con 2022 ADA RECOMMENDATION SEE BELOW Normal [facility] Comment on above: Result Comment: ADA RECOMMENDED LIMIT 4.0 - 6.0 ADA THERAPEUTIC TARGET < 7.0 ACTION SUGGESTED > 7.0 Performed By: #### A 1C ####[facility] [address] [place] [address]DrSolitario Bullard Glucose [Mass/Vol] 120 mg/dL Normal [facility] Comment on above: Performed By: #### A 1C ####[facility] [address] [place] [address]DrSolitario Bullard HbA1c (Bld) [Mass fraction] 5.8 % Normal 4.5-6.2 [facility] Comment on above: Performed By: #### A 1C ####[facility] [address] [place] [address]DrSolitario Bullard IRONon 04-25-2022 Iron [Mass/Vol] 94.0 ug/dL Normal 50.0-170.0 [facility] Comment on above: Performed By: #### I NANCY #### [facility] [address] [address] [address] Marion Bullard LIPID PROFILEon 04-25-2022 CHOL-HDL RATIO NORM SEE BELOW Normal [facility] Comment on above: Result Comment: 3.3 - 4.4 LOW RISK 4.4 - 7.1 AVERAGE RISK 7.1 - 11.0 MODERATE RISK >11.0 HIGH RISK Performed By: #### L IPID, CMP, T7, TSH #### [facility] [address] [address] [address] Marion Bullard Cholesterol [Mass/Vol] 193 mg/dL Normal <=200 [facility] Comment on above: Performed By: #### L IPID, CMP, T7, TSH #### [facility] [address] [address] [address] Marion Bullard Cholesterol in HDL [Mass/Vol] 49 mg/dL Normal 40-60 [facility] Comment on above: Performed By: #### L IPID, CMP, T7, TSH #### [facility] [address] [place] [address] Dr. Marion Bullard Cholesterol in LDL [Mass/Vol] 122.4 mg/dL Normal [facility] Comment on above: Performed By: #### L IPID, CMP, T7, TSH #### [facility] [address] [address] [address] Marion Bullard Cholesterol.total/Cho lesterol in HDL [Mass ratio] 3.9 {ratio} Normal [facility] Comment on above: Performed By: #### L IPID, CMP, T7, TSH #### [facility] [address] [place] [address] Dr. Marion Bullard HDL NORMAL > or = 60 mg/dl - LO W CARDIOVASCULAR RISK <40 mg/dl - HIGH CARDIOVASCULAR RISK Normal [facility] Comment on above: Performed By: #### L IPID, CMP, T7, TSH #### [facility] [address] [place] [address] Dr. Marion Bullard LDL CALC NORMAL SEE BELOW Normal [facility] Comment on above: Result Comment: <100 mg/dl OPTIMAL 100 - 129 mg/dl NEAR OR ABOVE OPTIMAL 130 - 159 mg/dl BORDERLINE HIGH 160 - 189 mg/dl HIGH >190 mg/dl VERY HIGH Performed By: #### L IPID, CMP, T7, TSH #### [facility] [address] [address] [address] Marion Bullard Triglyceride [Mass/Vol] 108 mg/dL Normal <=150 [facility] Comment on above: Performed By: #### L IPID, CMP, T7, TSH #### [facility] [address] [address] [address] Marion Bullard VLDL CALC 21.6 mg/dL Normal [facility] Comment on above: Performed By: #### L IPID, CMP, T7, TSH #### [facility] [address] [address] [address] Marion Bullard PROF 14(COMP METB)on 023 Albumin [Mass/Vol] 3.4 g/dL Normal 3.4-5.0 [facility] Comment on above: Performed By: #### L IPID, CMP, T7, TSH #### [facility] [address] [address] [address] Marion Bullard Albumin/Globulin [Mass ratio] 0.9 {ratio} Normal [facility] Comment on above: Performed By: #### L IPID, CMP, T7, TSH #### [facility] [address] [address] [address] Marion Bullard ALP [Catalytic activity/Vol] 93 U/L Normal 46-116 [facility] Comment on above: Performed By: #### L IPID, CMP, T7, TSH #### [facility] [address] [address] [address] Marion Bullard ALT [Catalytic activity/Vol] 26 U/L Normal 14-59 [facility] Comment on above: Performed By: #### L IPID, CMP, T7, TSH #### [facility] [address] [address] [address] Marion Bullard Anion gap [Moles/Vol] 12.7 mmol/L Normal [facility] Comment on above: Performed By: #### L IPID, CMP, T7, TSH #### [facility] [address] [address] [address] Marion Bullard AST [Catalytic activity/Vol] 21 U/L Normal 15-37 [facility] Comment on above: Performed By: #### L IPID, CMP, T7, TSH #### [facility] [address] [address] [address] Marion Bullard Bilirubin [Mass/Vol] 0.5 mg/dL Normal 0.2-1.0 [facility] Comment on above: Performed By: #### L IPID, CMP, T7, TSH #### [facility] [address] [address] [address] Marion Bullard Calcium [Mass/Vol] 9.1 mg/dL Normal 8.5-10.1 [facility] Comment on above: Performed By: #### L IPID, CMP, T7, TSH #### [facility] [address] [address] [address] Marion Bullard Chloride [Moles/Vol] 104 mmol/L Normal 98-107 [facility] Comment on above: Performed By: #### L IPID, CMP, T7, TSH #### [facility] [address] [address] [address] Marion Bullard CO2 [Moles/Vol] 29.2 mmol/L Normal 21.0-32.[address] [facility] Comment on above: Performed By: #### L IPID, CMP, T7, TSH #### [facility] [address] [address] [address] Marion Bullard Creatinine [Mass/Vol] 0.68 mg/dL Normal 0.55-1.02 [facility] Comment on above: Performed By: #### L IPID, CMP, T7, TSH #### [facility] [address] [address] [address] Marion Bullard EGFR-AF PRYDEINIG >60 Normal >=60 [facility] Comment on above: Performed By: #### L IPID, CMP, T7, TSH #### [facility] [address] [address] [address] Marion Bullard EGFR-NON AF PRYDEINIG >60 Normal >=60 [facility] Comment on above: Performed By: #### L IPID, CMP, T7, TSH #### [facility] [address] [address] [address] Marion Bullard Globulin (S) [Mass/Vol] 3.9 g/dL Normal [facility] Comment on above: Performed By: #### L IPID, CMP, T7, TSH #### [facility] [address] [address] [address] Marion Bullard Glucose [Mass/Vol] 103 mg/dL Normal 74-106 [facility] Comment on above: Performed By: #### L IPID, CMP, T7, TSH #### [facility] [address] [place] [address] Dr. Marion Bullard Potassium [Moles/Vol] 3.9 mmol/L Normal 3.5-5.1 [facility] Comment on above: Performed By: #### L IPID, CMP, T7, TSH #### [facility] [address] [address] [address] Marion Bullard Protein [Mass/Vol] 7.3 g/dL Normal 6.4-8.2 [facility] Comment on above: Performed By: #### L IPID, CMP, T7, TSH #### [facility] [address] [address] [address] Marion Bullard Sodium [Moles/Vol] 142 mmol/L Normal 136-145 [facility] Comment on above: Performed By: #### L IPID, CMP, T7, TSH #### [facility] [address] [address] [address] Marion Bullard Urea nitrogen [Mass/Vol] 13.0 mg/dL Normal 7.0-18.0 [facility] Comment on above: Performed By: #### L IPID, CMP, T7, TSH #### [facility] [address] [place] [address] Dr. Marion Bullard Urea nitrogen/Creatinine [Mass ratio] 19.1 mg/mg Normal [facility] Comment on above: Performed By: #### L IPID, CMP, T7, TSH #### [facility] [address] [place] [address] Dr. Marion Bullard PROTIMEon 04-25-2022 INR Coag (PPP) [Relative time] 0.95 {INR} Normal [facility] Comment on above: Performed By: #### P TT, PT #### [facility] [address] [place] [address] Dr. Marion Bullard INR GUIDELINES SEE BELOW Normal [facility] Comment on above: Result Comment: YARELI RED INR: 2.0 - 3.0 CONDITIONS NOT LISTED BELOW 2.5 - 3.5 FOR PROSTHETIC HEART VALVE REPLACEMENT 2.5 - 3.5 RECURRENT THROMBOSIS Performed By: #### P TT, PT #### [facility] [address] [place] [address] Dr. Marion Bullard PT Coag (PPP) [Time] 10.1 s Normal 9.0-11.6 [facility] Comment on above: Performed By: #### P TT, PT #### [facility] [address] [place] [address] Dr. Marion Bullard PTTon 04-25-2022 aPTT Coag (Bld) [Time] 27.3 s Normal 22.3-36.2 [facility] Comment on above: Performed By: #### P TT, PT #### [facility] [address] [place] [address] Dr. Marion Bullard TSHon 04-25-2022 TSH 3.782 uIU/mL Critically high 0.358-3.740 [facility] Comment on above: Performed By: #### L IPID, CMP, T7, TSH #### [facility] [address] [place] [address] Dr. Marion Bullard XR HAND LT MIN [...] JANNA SON Date: 2022-03-29 16:06 Normal [facility] Coding Summary.on 03-21-2022 Coding Summary. CD:[id number] G h0bWw+PGhlYWQ+QI8TBIU zP66xfYOgfS6JC7sVVG5R TAYQGRGMBF5OHI5tdBT9A LxeP7VosnRh GqeahXVfCA02KCm7GDJ1n BcdKAtdeA7atSFuM8m0Mu GkGI52hG33OIsqRFRtGqR 3LjZpbjsgbWFy U1syOsSeqCWrYem+PHRhY mxlIHdpZHRoPScxMDAlJy DewUgnMC1mLc6qVACbODO vbGxhcHNlOiBj v9edDZMhHNmxIP5axQwmA 0FklSS4FGHtb0p7Cq64vS I+BJZhTDI6qBymDIfan31 4DjRmo7xbEDF1 aRAzYGpiLCU4M57pn2O6K SYnDAAaADD4mHY9hM9vzL ggirbdQ7AkgHTaWjL5BZQ 5gESnzE6xjApr jfqfoW4uQnj+U36XZZ1VA GVWTK8QOde3A8FxMhqbrZ I+UA14GJRtXU72sJUzwGT ka1uabPn7IhNv FTCqGIJ3bMmoQNdyf7EfB BBhW53dxRYjl9Y1KBZytB ivmYBaLsDliIS9kS8nWJv meuglj9cdekrp Gcsqs9spaq16xR83Q35iR ThaPZOdDIW7VDIgSXFluI frru0jaF7pKb3+USwdd5r zg5hawDy1JdLb HZSwqwAjqGmeAAO3l1ZzG q66C3NwbLjhs7SfNky3er 26wFTev7W8lKT6TGraWIF oqF9xYBskByE8 CMVmJuEtcA29zLLrRVvtB i9szZvjeNltNN4xJCSwvk odKMYcyJ1lSAGijGSnpKz wTY2nTCVgotyr t318SkAbHGC2CILfuAUyO 8JjcA3jGhHzVQNpMWVgB9 FlzGXrAYzaJ217NFmlYqO 1MWLcwqMxU1Wu WPEqyFlbWbP0q5U5Wj3Yy 2FduxvvZSQ4UFkjQDClKl IlTvAtTcJ5A0XnLlt2WRS weBtdKO8dJ6Ng HOXttzcbgvbchWC7CYPlM TAcsG09tWTlUFlcYs3ne1 G1c539NDEhBUJhbJ92Ow1 udDogMTBwdCBU qS9mpuwyl2gwqaruSiGiE TAaVXs7UYa2HYBzbEudZl KlDBI6WkY2CBN8sWLlyV2 bvHbxjyfdpC9h Oyc+W53rwW0iUQJ0MOQ3z aiuODObypWeLQ67RU96F6 RyPjwvdGFibGU+PGRpdiB ngHbvKI8iRyQl j9gub3GpEBzzS7NiINUjN QfyAls6MOZaAJL3mGF2rU 3zABBwQNrcu0G6jSF2J6Q xluRqnk9xi2xb SGSjQTztA67ypXIez0Z1A VGmhUQ1NRArgGthJdVwdW 93Oyc+WEGuaOssv7AzYik ep1zid7fiqHh0 WbIkBBHblkKpiGesPNI9k 3XxEv48S35tOZnwEIAvDN VpSGByZEHvpPcuxs8oiP6 wIi8+PGNvbCB3 tNS4vE0lMRPhVcY2XRtoG 581SlEbtCCkBkelg6xyx1 dsiVh1QpPfGOFaefTyrLt zYGX8p6PnZv05 C88gIEmuATNvEFXeFYOdB QBumJazaw2fgA5sCu2+PC 7aj9nfxi88mH96qXE+PHR aIMS9qSddGQia EEVnsT3oUOapHsW6SGBmS fFcrM45qEZlAYmoYl4lbZ fvlKapQA0kQXEoltgxs46 3SaCra8wiYUNo vJRiGNnpRQH3K33gy5M0R XHkMXIeECE9cBE2iE7tjJ lnbjogbGVmdDsgdmVydGl oEIhbMRgwR418 IHRvcDsnPlBhdGllbnQgT hCtKVa2E6HsSnh4NDEcpV muVN0rzOGpEGydDw6jbLn fcIbuJA0xFZNb nqdel912LgGat9hyBKJsf ENnPHjnENK4E95sy6J4DF DdKJXiAGQ8cYM6iQ7qcJr nbjogbGVmdDsg dtXevIrkZGikOZrwA476Y HRvcDsnPkJpcnRoIERhdG P5ZO60BO23pKHdp2T6nJJ 8T9LzTOHeobrd jehftBU8CRBlAHKtwG98M m0dpEgmKi8iTGEdHLL4YF DwhIHsG6BqkK7aQoAkKKI yCYOiW2XprSWr ISjdC526MRmtGvT2XIXvl gRlP4FmZLVpvIzaYaU2y5 A3Zh6ED3Q3AQ11GA62jSH xq0N1sDO2E0Ew LVNbeddgenhpgIF3DZLoG PXyrU68Jk2arLdzMs3lOT OaOZT6PTTibGUsH0WmtS6 yOiAjMDAwMDAw T7KitSZmPAjbY267ZJyrZ uX6CKFkwaKuK1UpGGPpaF inYoU0c1Q6Fm4PWMv5FR5 5WK33tYIxh6I7 wZT2X6XoVTZzcuyspoqzl SU4LCWhONUbuO33Wd8ytI avDm6eDXXyAZZ2HDLdsFI qC1TnmD2uVqNp XNAlASRxU0OyvCSbBGeuS 595NCxdQgZ5BXMwnsNsG7 NvFPWlgDbxKiA4w6M4Qj2 RPXYmDM96MBZ2 pFL5WJ88IN35N3DhZizyr GFibGU+PHRhYmxlIHdpZH RoPScxMDAlJyBzdHlsZT0 vPn9cBGQlJCBu eRtvmDJhRhQgt7cjCMNnV MpgEX3sbZobC6KqlPA1RU Orc2c7Dt89O95xD1XzvTW +OSGcfSB9tJX7 mJ1gClTwAeV9ZDirS599G iEzaLSbPbibf2uir7rslO v7WkX3YHDqylAftRepMJY 4y7BaIr12R37l IHdpZHRoPSIxNSUiIHZhb Gjerw9pvO7lYc7+PGNvbC D0zGY1lP7uJwXrOwE7NMs fX409RsUnkORd Qqzgs4war8einMc8MyDfJ DCqldUriHmyHLZ9w1LzTk 61L7VfbDcti8UgDtr7sr7 3yFWoi4M8mTI9 R4AaVNKznorvjMNeyNwrI W9jAMReohpyIZGlsC0uUB TaV6w6SlUrIxS1YZirI9B nmgD3YWIyqFUg XTdjAFZ2I70lt4L9PZHlC VCiLWZ0dQK8yJ1osBbyex ogbGVmdDsgdmVydGljYWw fPOzrG175DXYw dDkuAWUryP8aYZOxsONya QjcTT7gUKOadydoInMLHi 3VOBjoFAwUTL5TML90R0N lInj3QSSvzJbz JN4rdBYiYWodZz8ovBllw KtyNO9rKTQyxrbmVUWcpE 7aPAPdqZZejQpaMW9sPPY ixkihl713KuYq RJI9MZWouZWxV2VwrW7qW mIjRLKvVYIqC8WqtEOvUD egQ031CEqfLjV7YDNqeuW jB6YrRLKyeQmh BmC4e4H8Sa2jQQ5aTb4qH KR3OS49LM99fXTbf4K8cD R9Q2ReIOGludcdkmthkZL 8WFMtCOCjjV30 iOOsDNtcUv6uy0Z5h431E TUcFETweR61Zy3wcCkcNL LvfVDDkA9bhrpdm5onosy gIzAwMDAwMDt0 NPi5ANYmdUqmNoGsKWT9W rA6DGY4zKXxlA8shIeyhk gmxB3bYpi+NjYgWWVhcnM 9Z4RvUzb2HNLu iHghBH1yjJQsDZyvRx6at BpmwFxfRB1wQTIifxvmID OunM3aJXBqyPKgwQpdWT8 yMJOcteqxm632 McEfILA4CFMdmHXlF0Iev U2vNiDzTTLyPSPoY2VskZ RsBBzqO405ETvqOwN5UNO rgiLdD6YfQNMp aKnvQoW7o1V0Eo3HVB1mv PC9A3WwBon8EMXoiSaaHM 0xjZEbQUfaYi2ahSrdbWr nWK3hMQTxklnp JHWwbW4dDHFttBTwoGniV Q8yTIKitxabq644DvKtEX Y1APKlmRChI6WghM2fUtX ePYQpPTXjW2Ds bMVfYVllP546LRvmDaQ4W PPonkJjU5EyAMBavNdhDu V9m2K8Qg8PPSamZN9nyzH uCL3wxrM9L9Qz PjwvdHI+XX97SZHpFK32j YWtqBUsp8ofxSb5DrKhXB WeQZA5gIevTSwhh0FlZMD nE38ujDUia9P0 CQIzuRtqdKGpIhOukYZ9h D5uUDevbydez9bsxetfRj vdv2lmlm56mL47Q32rLDd pZHRoPSIzMCUi PUEefIsxno6qxZ8tTr2+P TDdvUI3tQJ6nB6zKqCyPk E9KVmwG544CmMtpQJnBuu fk2fzn0ettYm2 UhEgKUHzfoJivHrhPXQ0c 3SmVx32P62zISglYWQoAN NkYTArSDWrsEskpl3dmM8 wIi8+AE7zn2zk kc37zG94wAN+YNYeTBH9v BapBTnjDHGcgB3tQRfnNc Z6NBMvRqPtjZ57lMBqIJt kIa0hfLwriJpk XS0rDKHwnzrex238YyYor 9goVEAllQUkPSzgBRG6B9 3gj6F5VUBfADOpJJN6yFH 7hC9mvMorkgye bGVmdDsgdmVydGljYWwtY BvqZ399WWGhkIcjPeZaeQ WsC0bfgvYMPO7kUmdnwJR +MDBoGRK6yLpk EZpbFQZmhS1zHNMgL7p9A rVxVhG6HXbiQ7JytdB2HR LgxINnVWXbzSPAaO5ekxj ek0bhhwerKdJg ZHUrBBi5UDd8EIPdhWghO qCgFEY7VhJ5UBY0vAQnpD 4zwOiercjskS3mCys+Rkl OOjwvdGQ+PHRk CIR4yNlbYIqiUJPucV2jM OTlB9e5PeAxCqS1AIcxK1 BxhrW7SEOdkOTrPQWulZV TwE0dhgsuj9dm mlbtNrTvMDGuQNm1XVo5E SQtnSygUcDrXJP4AaT5RV X4pZGydB1ycJykynnktW6 wOyc+TVJOOjwv dGQ+BFIrAON7cPhzIRbjZ BHwxX5cAJMvB4y7XoNaIt D3GIdnF1VupnP5MMGmwJA rDTYrvFCPpU8a gctsq7rqhqvdFbJaTJGoV Cu5NRn9QTHrxNiyEjQpNC F5XaD2KBF7eHYyaX0dlPi guqxruS2uNxz+ IMW6BSQ1QW54HO16D6ClM jwvdGFibGU+PHRhYmxlIH dpZHRoPScxMDAlJyBzdHl kCJ4sEz0zAMDt LWNv (more content not included)... [facility] Consent for Procedure/Surger yon 03-20-2022 Consent for Procedure/Surgery [id number]#1 .00CD:127 [facility] Consent for Treatmenton Consent for Treatment [id number]# 1.00CD:127 [facility] Discharge Instructionson Discharge Instructions [id number]#1 .00CD:127 [facility] IntraOperative Documentson 0 03-20-2022 IntraOperative Documents [id number]#1 .00CD:127 Normal [facility] IntraOperative Documents [id number] .00CD:127 Normal [facility] Main OR Intraoperative Recor don 03-20-2022 Main OR Intraoperative Record IntraOp Document Type FTPM Summary Primary Physician: Gerald Pham MD Finalized Date/Time: 03/20/22 13:43:47 Pt. Name: AKOSUADARÍOSHELYL/Sex: 1955 Female Med Rec #: [id number] Physician: Gerald Pham MD Financial #: [id number] Pt. Type: P Room/Bed: / Admit/Disch: 03/20/22 [...] Moore RN Role Performed Surgeon - Primary Bicycle I Assembler - Primary Scrub - Primary Time In [...] Ronak Rodriguez Role Performed Staff - Other X Ray Equipment Mechanic Time In 03/20/22 13:34:00 03/20/22 13:34:00 Time [...] Outcomes Met? Yes Last Modified By: Addis Hrenandez RN 03/20/22 13:31:05 Post-Care Text: The patient [...] and tissue Entry 1 Skin Integrity Intact, [place], Warm, and Skin Abnormality No Dry Outcomes [...] Extended Posit (more content not included)... [facility] Main OR Preoperative Recordo n 03-20-2022 Main OR Preoperative Record Holding Area Document Type FTPM Summary Primary Physician: Gerald Pham MD Finalized Date/Time: 03/20/22 13:30:04 Pt. Name: SHELLY HUMPHREYS/Sex: 1955 Female Med Rec #: [id number] Physician: Gerald Pham MD Financial #: [id number] Pt. Type: P Room/Bed: / Admit/Disch: 03/20/22 [...] By: Brittnee Blackburn RN 03/20/22 13:30 Normal [facility] Operative Reporton Operative Report SURGERY DATE: [...] condition. Gerald Pham M.D. lr Dictated: 03/20/2022 [id number] Transcribed: 03/20/2022 [facility] Comment on above: Result Comment: Elec tronically Signed By: Ankit HUDSON, Gerald\.br\Date and Time Signed: 03/20/22 16:39 EST Patient Correspondenceon Patient Correspondence [id number] .00CD:127 [facility] Workers' Comp Officeon 02-21 Workers' Comp Office [id number]# 2.00CD:127 Normal [facility] Vital Signs Date Time Vital Sign Value Performing Clinician Facility 01-20-2023 13:49-0500 Heart rate 81 /min Barry Neeraj [facility] 01-20-2023 13:49-0500 SaO2% (BldA) [Mass fraction] 98 % Barry Neeraj [facility] 01-20-2023 13:49-0500 Diastolic blood pressure 84 mm[Hg] Barry Neeraj [facility] 01-20-2023 13:49-0500 Mean blood pressure 109 mm[Hg] Barry Neeraj [facility] 01-20-2023 13:49-0500 Systolic blood pressure 160 mm[Hg] Barry Neeraj [facility] 01-20-2023 13:49-0500 Respiratory rate 16 /min Barryyayo Lawner [facility] 01-20-2023 13:43-0500 Diastolic blood pressure 94 mm[Hg] Barry Neeraj [facility] 01-20-2023 13:43-0500 Heart rate 76 /min Barry Neeraj [facility] 01-20-2023 13:43-0500 SaO2% (BldA) [Mass fraction] 98 % Barry Neeraj [facility] 01-20-2023 13:43-0500 Systolic blood pressure 159 mm[Hg] Barry Neeraj [facility] 01-20-2023 13:35-0500 Heart rate 87 /min Barry Neeraj [facility] 01-20-2023 13:35-0500 SaO2% (BldA) [Mass fraction] 98 % Barry Neeraj [facility] 01-20-2023 13:35-0500 Diastolic blood pressure 77 mm[Hg] Barry Neeraj [facility] 01-20-2023 13:35-0500 Mean blood pressure 98 mm[Hg] Barry Neeraj [facility] 01-20-2023 13:35-0500 Systolic blood pressure 140 mm[Hg] Barry Neeraj [facility] 01-20-2023 13:33-0500 Respiratory rate 14 /min Barry Neeraj [facility] 06-24-2022 13:44-0400 Body temperature 98.49 [degF] John Liz MD Work Phone: [facility] 06-24-2022 13:44-0400 Body weight 93.44 kg John Liz MD Work Phone: [facility] 05-09-2022 14:51-0400 Diastolic blood pressure 79 mm[Hg] Gerald Zumbar [facility] 05-09-2022 14:51-0400 Heart rate 90 /min Gerald Zumbar [facility] 05-09-2022 14:51-0400 Mean blood pressure 94 mm[Hg] Gerald Zumbar [facility] 05-09-2022 14:51-0400 Respiratory rate 16 /min Gerald Zumbar [facility] 05-09-2022 14:51-0400 Systolic blood pressure 125 mm[Hg] Gerald Zumbar [facility] 03-20-2022 13:46-0500 Diastolic blood pressure 65 mm[Hg] Gerald Zumbar [facility] 03-20-2022 13:46-0500 Heart rate 89 /min Gerald Zumbar [facility] 03-20-2022 13:46-0500 Mean blood pressure 85 mm[Hg] Gerald Zumbar [facility] 03-20-2022 13:46-0500 Systolic blood pressure 124 mm[Hg] Gerald Zumbar [facility] 03-20-2022 13:37-0500 Diastolic blood pressure 107 mm[Hg] Gerald Zumbar [facility] 03-20-2022 13:37-0500 Heart rate 80 /min Gerald Zumbar [facility] 03-20-2022 13:37-0500 Respiratory rate 14 /min Gerald Zumbar [facility] 03-20-2022 13:37-0500 SaO2% (BldA) [Mass fraction] 98 % Gerald Zumbar [facility] 03-20-2022 13:37-0500 Systolic blood pressure 144 mm[Hg] Gerald Zumbar [facility] 03-20-2022 13:23-0500 Heart rate 82 /min Gerald Zumbar [facility] 03-20-2022 13:23-0500 SaO2% (BldA) [Mass fraction] 96 % Gerald Zumbar [facility] 03-20-2022 13:23-0500 Diastolic blood pressure 85 mm[Hg] Gerald Zumbar [facility] 03-20-2022 13:23-0500 Mean blood pressure 107 mm[Hg] Gerald Zumbar [facility] 03-20-2022 13:23-0500 Systolic blood pressure 149 mm[Hg] Gerald Zumbar [facility] 03-20-2022 13:23-0500 Body temperature 98.06 [degF] Gerald Zumbar [facility] 03-20-2022 13:22-0500 Respiratory rate 12 /min Gerald Zumbar [facility] 01-23-2022 09:24-0500 Diastolic blood pressure 81 mm[Hg] Gerald Zumbar [facility] 01-23-2022 09:24-0500 Heart rate 81 /min Gerald Zumbar [facility] 01-23-2022 09:24-0500 Mean blood pressure 100 mm[Hg] Gerald Zumbar [facility] 01-23-2022 09:24-0500 Respiratory rate 12 /min Gerald Zumbar [facility] 01-23-2022 09:24-0500 Systolic blood pressure 137 mm[Hg] Gerald Zumbar [facility] 11-20-2021 07:59-0400 Diastolic blood pressure 94 mm[Hg] Cezar Coe [facility] 11-20-2021 07:59-0400 Heart rate 76 /min Cezar Coe [facility] 11-20-2021 07:59-0400 Mean blood pressure 115 mm[Hg] Cezar Coe [facility] 11-20-2021 07:59-0400 Systolic blood pressure 158 mm[Hg] Cezar Coe [facility] 11-15-2021 14:24-0400 Diastolic blood pressure 89 mm[Hg] Gerald Zumbar [facility] 11-15-2021 14:24-0400 Heart rate 83 /min Gerald Zumbar [facility] 11-15-2021 14:24-0400 Mean blood pressure 108 mm[Hg] Gerald Zumbar [facility] 11-15-2021 14:24-0400 Respiratory rate 12 /min Gerald Zumbar [facility] 11-15-2021 14:24-0400 Systolic blood pressure 145 mm[Hg] Gerald Zumbar [facility] Encounters Encounter Date Encounter Type Care Provider Facility Start: 01-22-2023 End: 01-22-[address] [facility] Facility:[facility] Start: 01-22-2023 End: 01-22-2023 Patient encounter procedure John Liz MD Work Phone: Rheumatology Comment on above: Seropositive rheumat oid arthritis (HCC) (Primary Dx); Medication monitoring encounter Start: 01-20-2023 End: 01-21-2023 ambulatory Barry Pickard Facility:[facility] Start: 01-20-2023 End: 01-20-2023 Pain Management Barry Pickard [facility] Start: 01-17-2023 End: 01-17-2023 ambulatory ADÁN MILLER Facility:[facility] Start: 12-12-2022 Refill John Liz MD [...] Start: 09-25-2022 End: 09-25-2022 ambulatory JOHN MODEL Facility:[facility] Start: 09-25-2022 End: 09-25-2022 Patient encounter procedure John Liz MD Work Phone: Rheumatology Comment on above: Seropositive rheumat oid arthritis (HCC) (Primary Dx); Medication monitoring encounter Start: 08-06-2022 End: 08-06-2022 ambulatory JOHN Facility:[facility] Start: 06-27-2022 End: 06-28-2022 ambulatory YANNA BRASHER Facility:[facility] Start: 06-27-2022 End: 06-27-2022 Patient encounter procedure Yanna Brasher MD Work Phone: Dermatology Comment on above: Psoriasis (Primary D x); Intertrigo Start: 06-26-2022 Telephone encounter John Liz MD Work Phone: Rheumatology Comment on above: Results Start: 06-26-2022 End: 06-27-2022 ambulatory MD Gerald Pham Facility:[facility] Start: 06-24-2022 End: 06-24-2022 ambulatory EULA TYLER Facility:[facility] Start: 06-24-2022 End: 06-24-2022 Patient encounter procedure John Liz MD Work Phone: Rheumatology Comment on above: Bilateral hand swell ing (Primary Dx); Psoriasis Start: 06-19-2022 End: 06-20-[address] ADÁN MILLER . Facility: Start: 05-30-2022 End: 05-31-2022 ambulatory Gerald Pham Facility:[facility] Start: 05-30-2022 End: 05-30-2022 Patient encounter procedure Gerald Pham [facility] Start: 05-14-2022 End: 05-15-[address] ADÁN MILLER . Facility: Start: 05-09-2022 End: 05-10-2022 ambulatory Gerald Pham Facility:[facility] Start: 05-09-2022 End: 05-09-2022 Pain Management Gerald Pham [facility] Start: 04-25-2022 End: 04-26-[address] ADÁN MILLER . Facility: Start: 03-29-2022 End: 03-30-[address] ADÁN MILLER . Facility: Start: 03-20-2022 End: 03-21-2022 ambulatory Gerald Pham Facility:[facility] Start: 03-20-2022 End: 03-20-2022 Pain Management Gerald Pham [facility] Start: 01-23-2022 End: 01-23-2022 Pain Management Gerald Zumbcathleen [facility] Start: 11-20-2021 End: 11-20-2021 Patient encounter procedure Cezar Coe [facility] Start: 11-15-2021 End: 11-15-2021 Pain Management Gerald Pham [facility] Procedures Date Procedure Procedure Detail Performing [...] DTaP,Tdap,Td Vaccine (2 - Td or Tdap) [facility] Start: 01-17-2026 Diabetes Screening Diabetes Screenin [facility] Start: 09-25-2025 DIABETES SCREEN DIABETES SCREEN [facility] Start: 09-25-2025 Diabetes Screening Diabetes Screenin g [facility] Start: 08-06-2025 DIABETES SCREEN DIABETES SCREEN [facility] Start: 06-24-2025 DIABETES SCREEN DIABETES SCREEN [facility] Start: 04-23-2023 End: 01-23-2024 CBC W Auto Differential panel - Blood CBC + DIFF Lab Routine Seropositive rheumatoid arthritis (HCC) Medication monitoring encounter Expected: 04/23/2023, Expires: 01/23/2024 [facility] Work Phone: Comment on above: Expected: 04/23/2023 , Expires: 01/23/2024 Start: 04-23-2023 End: 01-23-2024 Comprehensive metabolic 2000 panel - Serum or Plasma COMP METABOLIC PANEL Lab Routine Seropositive rheumatoid arthritis (HCC) Medication monitoring encounter Expected: 04/23/2023, Expires: 01/23/2024 [facility] Work Phone: Comment on above: Expected: 04/23/2023 , Expires: 01/23/2024 Start: 04-23-2023 End: 01-23-2024 Erythrocyte sedimentation rate SED RATE WESTERGREN Lab Routine Seropositive rheumatoid arthritis (HCC) Medication monitoring encounter Expected: 04/23/2023, Expires: 01/23/2024 [facility] Work Phone: Comment on above: Expected: 04/23/2023 , Expires: 01/23/2024 Start: 12-12-2022 End: 12-13-2023 CBC W Auto Differential panel - Blood CBC + DIFF Lab Routine Seropositive rheumatoid arthritis (HCC) Medication monitoring encounter Expected: 12/12/2022, Expires: 12/13/2023 [facility] Work Phone: Comment on above: Expected: 12/12/2022 , Expires: 12/13/2023 Start: 12-12-2022 End: 12-13-2023 Comprehensive metabolic 2000 panel - Serum or Plasma COMP METABOLIC PANEL Lab Routine Seropositive rheumatoid arthritis (HCC) Medication monitoring encounter Expected: 12/12/2022, Expires: 12/13/2023 [facility] Work Phone: Comment on above: Expected: 12/12/2022 , Expires: 12/13/2023 Start: 12-12-2022 End: 12-13-2023 Erythrocyte sedimentation rate SED RATE WESTERGREN Lab Routine Seropositive rheumatoid arthritis (HCC) Medication monitoring encounter Expected: 12/12/2022, Expires: 12/13/2023 [facility] Work Phone: Comment on above: Expected: 12/12/2022 , Expires: 12/13/2023 Start: 10-18-2022 Influenza vaccination [facility] Start: 09-25-2022 End: 09-26-2023 Comprehensive metabolic 2000 panel - Serum or Plasma [facility] Work Phone: Comment on above: Expected: 09/25/2022 , Expires: 09/26/2023 Start: 09-25-2022 End: 09-26-2023 Erythrocyte sedimentation rate [facility] Work Phone: Comment on above: Expected: 09/25/2022 , Expires: 09/26/2023 Start: 06-26-2022 End: 06-27-2023 CBC W Auto Differential panel - Blood CBC + DIFF Lab Routine Inflammatory arthritis Medication monitoring encounter Expected: 06/26/2022, Expires: 06/27/2023 [facility] Work Phone: Comment on above: Expected: 06/26/2022 , Expires: 06/27/2023 Start: 06-26-2022 End: 08-26-2022 Chronic hepatitis differentiation between hepatitis B and C virus panel - Serum or Plasma HEP REMOTE PANEL BL Lab Routine Inflammatory arthritis Medication monitoring encounter Expected: 06/26/2022, Expires: 08/26/2022 [facility] Work Phone: Comment on above: Expected: 06/26/2022 , Expires: 08/26/2022 Start: 06-26-2022 End: 06-27-2023 Comprehensive metabolic 2000 panel - Serum or Plasma COMP METABOLIC PANEL Lab Routine Inflammatory arthritis Medication monitoring encounter Expected: 06/26/2022, Expires: 06/27/2023 [facility] Work Phone: Comment on above: Expected: 06/26/2022 , Expires: 06/27/2023 Start: 06-26-2022 End: 06-27-2023 Erythrocyte sedimentation rate SED RATE WESTERGREN Lab Routine Inflammatory arthritis Medication monitoring encounter Expected: 06/26/2022, Expires: 06/27/2023 [facility] Work Phone: Comment on above: Expected: 06/26/2022 , Expires: 06/27/2023 Start: 06-24-2022 End: 06-25-2023 C reactive protein [Mass/volume] in Serum or Plasma [facility] Work Phone: Comment on above: Expected: 06/24/2022 , Expires: 06/25/2023 Start: 06-24-2022 End: 08-24-2022 Comprehensive metabolic 2000 panel - Serum or Plasma [facility] Work Phone: Comment on above: Expected: 06/24/2022 , Expires: 08/24/2022 Start: 06-24-2022 End: 08-24-2022 Creatine kinase [Enzymatic activity/volume] in Serum or Plasma [facility] Work Phone: Comment on above: Expected: 06/24/2022 , Expires: 08/24/2022 Start: 06-24-2022 End: 06-25-2023 Cyclic citrullinated peptide IgG Ab [Units/volume] in Serum or Plasma [facility] Work Phone: Comment on above: Expected: 06/24/2022 , Expires: 06/25/2023 Start: 06-24-2022 End: 06-25-2023 Nuclear Ab [Presence] in Serum by Immunoassay [facility] Work Phone: Comment on above: Expected: 06/24/2022 , Expires: 06/25/2023 Start: 06-24-2022 End: 08-24-2022 PROTEIN ELECTROPHORESIS SERUM W/INTERP [facility] Work Phone: Comment on above: Expected: 06/24/2022 , Expires: 08/24/2022 Start: 06-24-2022 End: 06-25-2023 Rheumatoid factor [Units/volume] in Serum or Plasma [facility] Work Phone: Comment on above: Expected: 06/24/2022 , Expires: 06/25/2023 Start: 06-24-2022 End: 08-24-2022 Urate [Mass/volume] in Serum or Plasma [facility] Work Phone: Comment on above: Expected: 06/24/2022 , Expires: 08/24/2022 Start: 02-17-2022 ADVANCE DIRECTIVE DISCUSSION ADVANCE DIRECTIVE DISCUSSION [facility] Start: 02-17-2022 DEPRESSION ASSESSMENT DEPRESSION ASS ESSMENT [facility] Start: 09-28-2020 BONE DENSITY BONE DENSITY [facility] Start: 09-28-2020 Bone Density Screening Bone Density Screening [facility] Start: 09-28-2020 PNEUMOCOCCAL: 65+ (1 - PCV) PNEUMOCOCCAL: 65+ (1 - PCV) [facility] Start: 02-28-2017 Pneumococcal Vaccine : 65+ (2 - PCV) Pneumococcal Vaccine: 65+ (2 - PCV) [facility] Start: 2015 RSV Vaccine (1 - 1-d ose 60+ series) RSV Vaccine (1 - 1-dose 60+ series) [facility] Start: 09-28-2005 SHINGRIX VACCINE (1 of 2) BA GRIX VACCINE (1 of 2) [facility] Start: 09-28-2000 COLOGUARD (FIT-DNA) COLOGUARD (FIT-D NA) [facility] Start: 09-28-2000 Colonoscopy COLONOSCOPY [facility] Start: 09-28-2000 COLORECTAL CANCER SCREENING COLORECTAL CANCER SCREENING [facility] Start: 09-28-[address] COLONOGRAPHY [facility] Start: 09-28-2000 DIABETES SCREEN DIABETES SCREEN [facility] Start: 09-28-2000 FECAL OCCULT BLOOD FECAL OCCULT BLOO D [facility] Start: 09-28-2000 Lipid 1996 panel - S west or Plasma Lipid Screening [facility] Start: 09-28-2000 LIPID SCREEN LIPID SCREEN [facility] Start: 09-28-2000 SIGMOIDOSCOPY SIGMOIDOSCOPY [facility] Start: 1995 Mammography [facility] Start: 09-28-1974 SHINGRIX VACCINE (1 of 2) BA GRIX VACCINE (1 of 2) [facility] Start: 09-28-1974 Urine microalbumin profile [facility] Start: 09-28-1973 HEPATITIS C SCREENING HEPATITIS C SC REENING [facility] Start: 09-28-1961 Pneumococcal Vaccine : 65+ (1 - PCV) Pneumococcal Vaccine: 65+ (1 - PCV) [facility] Start: 09-28-1961 PNEUMOCOCCAL: 65+ (1 - PCV) PNEUMOCOCCAL: 65+ (1 - PCV) [facility] Start: 09-28-1960 COVID-19 VACCINE (#1) COVID-19 VACCI NE (#1) [facility] Start: 03-31-1956 COVID-19 VACCINE (#1) COVID-19 VACCI NE (#1) [facility] CBC W Auto Different ial panel - Blood CBC + DIFF Lab Routine Bilateral hand swelling 06/24/2022 3:03 PM EDT [facility] Work Phone: End: 07-24-2023 Radiologic exam chest 2 views XR CHEST 2V FRONTAL/LAT Radiology Routine Bilateral hand swelling 1 Occurrences starting 06/24/2022 until 07/24/2023 [facility] Work Phone: Comment on above: 1 Occurrences starti ng 06/24/2022 until 07/24/2023 Radiologic exam ches t 2 views XR CHEST 2V FRONTAL/LAT Radiology Routine Bilateral hand swelling 06/24/2022 3:26 PM EDT [facility] Work Phone: [facility] Immunizations Immunization Date Immunization Notes Care Provider Foreign sampson 12-20-2018 influenza virus vaccine, unspecified formulation John Liz MD Work Phone: [facility] 12-18-2018 influenza virus vaccine, live, attenuated, for intranasal use Gerald Zallie [facility] [place] Payers Date Payer Category Payer Worker's Compensation [id number] 2022 Worker's Compensation [id number] 2021 Medicaid [place] [id number] 2021-Present [phone] [address] [place] [address] Medicaid [id number] 1959 Medicaid [id number] 1959 Medicare [id number] 1955 Unknown [id number] 3 1955 Unknown [id number] 3 1955 Unknown [id number] 3 1955 Unknown [id number] 3 1955 Unknown [id number] 7 1955 Unknown [id number] 7 1955 Unknown [id number] 7 1955 Unknown [id number] 7 1955 Unknown [id number] 7 Social History Date Type Detail Facility Start: 02-15-2021 Tobacco smoking status Heavy t obacco smoker (finding) [facility] Start: 06-23-2022 End: 06-24-2022 Sex Assigned At Female [facility] Tobacco smoking stat [facility] Tobacco smoking consumption unknown [facility] Work Phone: Start: 1955 Sex Assigned At Female [facility] Start: 06-23-2022 End: 06-24-2022 History of Social function [facility] Adult Depression Screening Assessment 2 [facility] Start: 06-23-2022 Gender identity Identifies as female gender (finding) [facility] Start: 06-23-2022 Sexual orientation Heterosexual (criselda rascon) [facility] Functional Status Date Assessment Result Facility 01-20-2023 Functional Status N/A [facility] 05-09-2022 Functional Status N/A [facility] 03-20-2022 Functional Status N/A [facility] 01-23-2022 Functional Status N/A [facility] 11-20-2021 Functional Status N/A [facility] 11-15-2021 Functional Status N/A [facility] Clinical Notes 03-20-2022 to 01-22-2023 John Liz MD - 01/22/2023 2:11 PM ESTTelephone Encounter - John Liz MD - 12/12/2022 9:17 AM EDTTelephone Encounter - Katy Blum - 12/12/2022 8:42 AM Pam Liz MD - 06/24/2022 2:06 PM EDT Note Date & Type Note Facility 01-22-2023 Note HNO ID: [id number] Author: John Liz MD Service: ? Author [...] showing osteoarthritis. Dr Miller her PCP from [facility] in [place] prescribed prednisone 40 mg/d x 5. Reduced [...] Standing Expiration Da (more content not included)... [facility] 01-22-2023 History of Presen t illness Narrative [...] showing osteoarthritis. Dr Miller her PCP from [facility] in [place] prescribed prednisone 40 mg/d x 5. Reduced [...] John Liz MD documented in this encounter [facility] 01-20-2023 Note [id number] [facility] 12-12-2022 Miscellaneous Notes Orders Placed This [...] Days Visit Type Date Time Department [facility] 01/22/2023 1:40 PM [facility] CBC: CBC Latest Ref Rng & [...] Lab Orders None documented in this encounter [facility] 11-08-2022 Miscellaneous Notes Patient called in to let Dr. Brasher that the triamcinolone (KENALOG) 0.025 % ointment does not work. Patient wants to know if she can be prescribed something else. ketoconazole (NIZORAL) 2 % cream is working well for the patient. documented in this encounter [facility] 11-07-2022 Miscellaneous Notes Patient last seen 06/2022 RX Ketoconazole Please approve prescription and any additional refills and e-script to designated pharmacy. Thank you, Doreen William documented in this encounter [facility] 10-29-2022 Miscellaneous Notes I called her [...] 21 to 16. documented in this encounter [facility] 10-02-2022 Miscellaneous Notes Spoke with patient [...] and ankles are swelling Please call pt [phone] documented in this encounter [facility] 09-25-2022 Note HNO ID: [id number] Author: John Liz MD Service: ? Author [...] showing osteoarthritis. Dr Miller her PCP from [facility] in [place] prescribed prednisone 40 mg/d x 5. Reduced [...] WESTERGREN Rv 3 mo John Liz MD [facility] 09-25-2022 History of Presen t illness Narrative [...] showing osteoarthritis. Dr Miller her PCP from [facility] in [place] prescribed prednisone 40 mg/d x 5. Reduced [...] John Liz MD documented in this encounter [facility] 06-27-2022 Note HNO ID: [id number] Author: Yanna Brasher MD Service: ? Author [...] Lymph 1.00 - 4.00 k/uL 4.49 (H) Pettis% % 7.0 Abs Pettis <0.87 k/uL 1.50 (H) Eosin% % 0.0 [...] rheumatologic management sugges (more content not included)... [facility] 06-27-2022 History of Presen t illness Narrative [...] Lymph 1.00 - 4.00 k/uL 4.49 (H) Pettis% % 7.0 Abs Pettis <0.87 k/uL 1.50 (H) Eosin% % 0.0 [...] Yanna Brasher MD documented in this encounter [facility] 06-26-2022 Miscellaneous Notes I spoke with [...] mail. She said please send Rx to [facility] pharmacy in [place], [place] on [address]. She also notes that her hands are stiff and swollen again. She stopped prednisone Friday (she is out of pills) and the stiffness and swelling came back this morning. Also - she made an appointment to see Derm at [facility]. Her appointment is tomorrow 06/27. 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 Author [...] showing osteoarthritis. Dr Miller her PCP from [facility] in [place] prescribed prednisone 40 mg/d x 5. Reduced [...] which included preparing to see the patient, [id number] patient care, completing clinical documentation, obtaining and/or reviewing separately obtained (more content not included)... [facility] 06-24-2022 History of Presen t illness Narrative [...] showing osteoarthritis. Dr Miller her PCP from [facility] in [place] prescribed prednisone 40 mg/d x 5. Reduced [...] which included preparing to see the patient, [id number] patient care, completing clinical documentation, obtaining and/or reviewing separately obtained history, performing a medically appropriate examination, counseling and educating the patient/family/caregiver, and ordering medications, tests, or procedures. documented in this encounter [facility] 05-11-2022 Note HOSPITAL REGULATIONS : All [...] at the L4-5 foramen. I reviewed an [place] [employer] report on her which [...] total. Gerald Pham M.D. lr Dictated: 05/09/2022 [id number] Transcribed: 05/10/2022 cc:Adán Miller M.D. [facility] Comment on above: Result Comment: Elec tronically Signed By: Ankit HUDSON, Gerald\.br\Date and Time Signed: 05/11/22 18:51 EDT 03-20-2022 Note [id number]:127 [facility] Evaluation + Plan note Future Appointments Appointment Date:11/20/2021 08:00:00 AM Scheduled Provider:Cezar Coe MD Location:[facility] Appointment Type:Spine - Worker's Comp New ([facility]) [facility] Evaluation + Plan note Future Appointments Appointment Date:05/09/2022 02:30:00 PM Scheduled Provider:Gerald Pham MD Location:[facility] [place] Appointment Type:Pain Management - Follow Up ([facility]) [facility] Evaluation + Plan note Future Appointments Appointment Date:06/26/2022 11:15:00 AM Scheduled Provider:Gerald Pham MD Location:[facility] [place] Appointment Type:Pain Management - Workmans Comp Follow U [facility] Evaluation + Plan note Future Appointments Appointment Date:02/21/2023 03:15:00 PM Scheduled Provider:Nyasia Helton PA-C Location:[facility] [place] Appointment Type:Pain Management - Follow Up () [facility] Evaluation note Diagnosis Bilateral hand swelling- Primary Psoriasis Other psoriasis documented in this encounter [facility] note* Diagnosis 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 Medication monitoring encounter Encounter for therapeutic drug monitoring documented in this encounter [facility] note* Diagnosis Psoriasis- Primary Other psoriasis Intertrigo Other specified erythematous condition documented in this encounter [facility] note* Diagnosis Seropositive rheumatoid arthritis (HCC)- Primary Rheumatoid arthritis Medication monitoring encounter Encounter for therapeutic drug monitoring documented in this encounter [facility] note* Diagnosis Seropositive rheumatoid arthritis (HCC)- Primary Rheumatoid arthritis Medication monitoring encounter Encounter for therapeutic drug monitoring [facility] No data available for this [facility] No data available for this section [facility] No data available for this section [facility] Reason for Referral Specialty Diagnoses / Procedures Referred By Contac t Referred To Contact Dermatology Diagnoses Psoriasis Procedures CONSULT TO DERMATOLOGY OFFICE/OUTPATIENT NEW HIGH MDM 60-74 MINUTES John Liz MD [address] [place] [address] Referral ID Status Reason Start Date Expiration Date Visits Requested Visits Authorized [id number] Authorized PCP Requested Referral 06/24/2022 06/24/2023 1 1 Specialty Diagnoses / Procedures Referred By Contac t Referred To Contact XR IMAGING Diagnoses Bilateral hand swelling Procedures XR FOOT GENERAL 3V AP/LAT/OBL BILATERAL RADEX FOOT COMPLETE MINIMUM 3 VIEWS John Liz MD [address] [place] [address] Xr Imaging Referral ID Status Reason Start Date Expiration Date V isits Requested Visits Authorized [id number] Closed Auto-Generate d Referral 06/24/2022 07/24/2023 1 1 Specialty Diagnoses / Procedures Referred By Contac t Referred To Contact XR IMAGING Diagnoses Bilateral hand swelling Procedures XR HAND/WRIST SURVEY ARTHRITIS 1V PA BILATERAL JOINT SURVEY SINGLE VIEW 2 OR MORE JOINTS John Liz MD [address] [place] [address] Xr Imaging Referral ID Status Reason Start Date Expiration Date V isits Requested Visits Authorized [id number] Closed Auto-Generate d Referral 06/24/2022 07/24/2023 1 1 Summary Purpose Family History No Family History Records Found No data available for this section No Family History Records FoundNo Family History Records Found Advance Directives No Advanced Directives Records FoundNo Advanced Directives Records FoundNo Advanced Directives Records Found Additional Source Comments Care Team (unrecognized sect ion and content) 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 Relationship Specialty Start Date End Date Eula Tyler [address] [facility] [address] [place] [address] PCP - General Family Medicine 06/21/22 Eula Tyler [address] [place] [address] Referring Family Medicine 06/21/22 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 Relationship Specialty Start Date End Date Eula Tyler [address] [place] [address] PCP - General Family Medicine 06/21/22 Eula Tyler [address] [place] [address] Referring Family Medicine 06/21/22 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 Relationship Specialty Start Date End Date Eula Tyler [address] [place] [address] PCP - General Family Medicine 06/21/22 Eula Tyler [address] [place] [address] Referring Family Medicine 06/21/22 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 Relationship Specialty Start Date End Date Eula Tyler [address] [place] [address] PCP - General Family Medicine 06/21/22 Eula Tyler [address] [place] [address] Referring Family Medicine 06/21/22 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 Relationship Specialty Start Date End Date Eula Tyler [address] [place] [address] PCP - General Family Medicine 06/21/22 Eula Tyler [address] [place] [address] Referring Family Medicine 06/21/22 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 Relationship Specialty Start Date End Date Eula Tyler PA [address] [place] [address] PCP - General Family Medicine 06/21/22 Eula Tyler PA [address] [place] [address] Referring Family Medicine 06/21/22 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 Relationship Specialty Start Date End Date Eula Tyler PA [address] [place] [address] PCP - General Family Medicine 06/21/22 Eula Tyler PA [address] [place] [address] Referring Family Medicine 06/21/22 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 Relationship Specialty Start Date End Date Eula Tyler PA [address] [place] [address] PCP - General Family Medicine 06/21/22 Eula Tyler PA [address] [place] [address] Referring Family Medicine 06/21/22 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 Relationship Specialty Start Date End Date Eula Tyler PA [address] [place] [address] PCP - General Family Medicine 06/21/22 Eula Tyler PA [address] [place] [address] Referring Family Medicine 06/21/22 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 Relationship Specialty Start Date End Date Adán Miller MD [address] [place] [address] PCP - General Family Medicine 01/17/23 Eula Tyler PA [address] [address] [place] [address] Referring Family Medicine 06/21/22 Source Comments (unrecognize d section and content) In the event this informatio n is protected by the Federal Confidentiality of Alcohol and Drug Abuse Patient Records regulations: The Federal rules restrict any use of the information to criminally investigate or prosecute any alcohol or drug abuse patient.[facility] the event this information is protected by the Federal Confidentiality of Alcohol and Drug Abuse Patient Records regulations: The Federal rules restrict any use of the information to criminally investigate or prosecute any alcohol or drug abuse patient.[facility] the event this information is protected by the Federal Confidentiality of Alcohol and Drug Abuse Patient Records regulations: The Federal rules restrict any use of the information to criminally investigate or prosecute any alcohol or drug abuse patient.[facility] the event this information is protected by the Federal Confidentiality of Alcohol and Drug Abuse Patient Records regulations: The Federal rules restrict any use of the information to criminally investigate or prosecute any alcohol or drug abuse patient.[facility] the event this information is protected by the Federal Confidentiality of Alcohol and Drug Abuse Patient Records regulations: The Federal rules restrict any use of the information to criminally investigate or prosecute any alcohol or drug abuse patient.[facility] the event this information is protected by the Federal Confidentiality of Alcohol and Drug Abuse Patient Records regulations: The Federal rules restrict any use of the information to criminally investigate or prosecute any alcohol or drug abuse patient.[facility] the event this information is protected by the Federal Confidentiality of Alcohol and Drug Abuse Patient Records regulations: The Federal rules restrict any use of the information to criminally investigate or prosecute any alcohol or drug abuse patient.[facility] the event this information is protected by the Federal Confidentiality of Alcohol and Drug Abuse Patient Records regulations: The Federal rules restrict any use of the information to criminally investigate or prosecute any alcohol or drug abuse patient.[facility] the event this information is protected by the Federal Confidentiality of Alcohol and Drug Abuse Patient Records regulations: The Federal rules restrict any use of the information to criminally investigate or prosecute any alcohol or drug abuse patient.[facility] the event this information is protected by the Federal Confidentiality of Alcohol and Drug Abuse Patient Records regulations: The Federal rules restrict any use of the information to criminally investigate or prosecute any alcohol or drug abuse patient.[facility] Reason for Visit (unrecogniz ed section and content) Reason Comments New Patient Reason Comments Results Reason Comments Full Body Skin Check Psoriasis/ blisters sparatic on the body Reason Comments Established Patient Reason Comments Medication Problem Reason Comments Patient Update Bruising Reason Comments Refill Request Reason Comments Patient Question INFORMATION SOURCE (unrecogn ized section and content) DATE CREATED AUTHOR 06/27/2022 Yue Chung [facility] DATE CREATED AUTHOR AUTHOR'S ORGANIZ ATION 01/25/2023 [facility] DATE CREATED AUTHOR AUTHOR'S ORGANIZ ATION 01/30/2023 [facility] FOR RECORDS PERTAINING TO PATIENTS WHO ARE [...] BE BASED ON THE PRIMARY CLINICAL RECORDS. [facility]. provides no warranty or guarantee of the accuracy or completeness of information in this document.
== END 2023-02-13 14:30 | disposition home or self-care (01) ==
LOC: VC 14:29
PROVIDERS: PCP Family Medicine; Visit Provider Family Medicine
DX: I83.813 Varicose veins of bilateral lower extremities with pain (principal)
CPT/HCPCS: G0463

== ENCOUNTER 2023-03-12 10:09 | Outpatient (OUT) | payer MEDICARE, MEDICAID, SELFPAY ==
--- NOTE | 2023-03-12 10:13 | VEIN_ITS ---
[address] [address] Patient Name: DAVION HUMPHREYS MRN: [id number] date: 1955 Sex: F Assigned Patient Location: Current Patient Location: Accession/Order Number: [id number] Exam Date: 03/12/2023 10:15 Report Date: 03/12/2023 11:22 At the request of: WADE YU Procedure: VC Endovenous Ablation 1VeinRT EXAMINATION: VC Endovenous Ablation 1Vein right great saphenous vein HISTORY: Pain due to varicose veins of bilateral legs I83.813 COMPARISON: No relevant comparison available. TECHNIQUE: The risks and benefits of the procedure had been previously discussed, and were rediscussed at length. Informed written consent was obtained. Shelley Hein and Itz Cheng assisted. Time out procedure was performed. The right lower extremity was prepared and draped in the usual sterile fashion to allow knee flexion in the sterile field. Duplex ultrasound probe was draped in a sterile cover, sterile transmission gel was used. Venous mapping was performed with the areas of dilation and large tributaries marked. The total length was 36 cm from the entry upper calf to 3 cm below the saphenofemoral junction. The vein beneath the entry point was not amenable to laser ablation. The diameter of the greater saphenous vein ranged from 5-7 mm. A 30 gauge needle and 1% buffered lidocaine was used to anesthetize the entry site. A 4 mm incision was made with a scalpel and the saphenous vein was entered percutaneously under direct ultrasound guidance with a micropuncture set, a single stick was successful in gaining access. A micro-guide wire was inserted and the needle removed. A micro-set including a dilator was inserted over the microwire and the needle and dilator were removed. A 0.018 guide wire was inserted through the micro-set and threaded through the saphenous vein to the saphenofemoral junction. The dilator was removed and an introducer sheath was inserted over the wire until the end of the sheath entered the saphenofemoral junction. The dilator and wire were removed and the 600 micron fiber was introduced and placed and positioned so that it extended beyond the sheath and was 3 cm peripheral to the saphenofemoral femoral junction. Final position of the fiber was determined by ultrasound guidance and duplex imaging. Tumescent anesthetic was delivered by ultrasound guidance. 225 cc of fluid was delivered along the entire course of the saphenous vein. The solution consisted of 1000 cc of normal saline with 40 mL of 1% lidocaine and 20 mL of sodium bicarbonate. A final positioning check was made. The energy source was turned on by means of the foot pedal and the fiber and sheath were withdrawn. The total number of Joules delivered was 1727. The laser was active for 216 seconds under continuous pulse, average laser use of 8 J. Laser start time 11:04 AM 03/12/2023 . Laser stop time 11:08 AM 03/12/2023 . A duplex ultrasound revealed compressibility and flow at the saphenofemoral junction immediately after the procedure. Hemostasis at the access site was achieved. The skin incision of the saphenous vein was closed with a 4 x 4. A compression stocking was applied. Postop instructions were given. A follow up appointment was recommended and scheduled. The patient tolerated the procedure well and was discharged in good condition . VEIN/VC Endovenous Ablation 1VeinRT IMPRESSION: Technically successful endovenous laser ablation of the right great saphenous vein Electronically authenticated by: WADE YU Date: 03/12/2023 11:22
--- OUTSIDE RECORDS SUMMARY | 2023-03-12 10:13 | XMS_ITS | CCD ---
Author Name Unknown Address [address] [place] [address] Organization [facility] Care Team Providers Care [facility]z Miner Name Role Phone Adán Lala Primary Care Physician [phone] Eula Tyler Unavailable Eula Tyler Primary Care Provider [phone] DAI Jerez, DR MCCAIN Primary Care Unavailable HOY ., DR MCCAIN Admitting Unavailable HOY ., DR MCCAIN Attending Unavailable HOY ., DR MCCAIN Consulting Unavailable JANNA SON Consulting Unavailable HOY ., DR MCCAIN Primary Care Unavailable HOY ., DR MCCAIN Admitting Unavailable HOY ., DR MCCAIN Attending Unavailable HOY ., DR MCCAIN Consulting Unavailable HOY ., DR MCCAIN Consulting Unavailable HOY ., DR MCCAIN Primary Care Unavailable HOY ., DR MCCAIN Admitting Unavailable HOY ., DR MCCAIN Attending Unavailable BOWLER, DR WADE Lozada Consulting Unavailable HOY ., DR MCCAIN Consulting Unavailable HOY ., DR MCCAIN Primary Care Unavailable HOY ., DR MCCAIN Admitting Unavailable HOY ., DR MCCAIN Attending Unavailable YESENIA, DR SOFIE Shepherd Consulting Unavailable Eula Tyler Unavailable Eula Tyler Primary Care Provider [phone] Eula Vital Unavailable Eula Vital Primary Care Provider Adán Lala MD Primary Care Provider [phone] Felice Phamry Admitting Unavailable Zumbar Gerald Attending Unavailable Ankit Gerald Referring Unavailable Gerald Pham Admitting Unavailable Adán Lala Referring Unavailable Conchitaumbar, Gerald Attending Unavailable Zumbar, MD Gerald Admitting Unavailable Dai Adán Referring Unavailable Gerald Pham Attending Unavailable Nyasia Helton Attending Unavailable JOSE ANTONIO Helton Admitting Unavailabl e Dai Adán Referring Unavailable Barry Pickard Attending Unavailable Barry Pickard Referring Unavailable MD Barry Pickard Admitting Unavailable ZumbGerald connolly Admitting Unavailable Gerald Pham Attending Unavailable Gerald Pham Referring Unavailable MODEL, JOHN Referring Unavailable TYLER, EULA J Primary Care Unavailable UNWALA, YANNA Attending Unavailable TYLER, EULA J Primary Care Unavailable MODEL, JOHN Referring Unavailable TYLER, EULA J Primary Care Unavailable MODEL, JOHN Referring Unavailable TYLER, EULA J Primary Care Unavailable MODEL, JOHN Attending Unavailable TYLER, EULA J Referring Unavailable TYLER, EULA J Primary Care Unavailable HODana, ADÁN M Primary Care Unavailable UNWALA, YANNA Attending Unavailable HODana, ADÁN M Primary Care Unavailable MODEL, JOHN Attending Unavailable HOANNETTE CortezLAS M Primary Care Unavailable MODEL, JOHN Referring Unavailable TYLER, EULA J Primary Care Unavailable MODEL, JOHN Referring Unavailable MODEL, JOHN Attending Unavailable TYLER, EULA J Primary Care Unavailable Allergies Allergy Classification Reported Allergen(s) Allergy Type Date of Onset Reaction(s) Facility (2 sources) Codeine; Translations: [CODEINE] Drug Allergy 06-27-2022 [facility] Repository (8 sources) Codeine Drug Allergy 06-27-2022 GI Upset [facility] Medications Current Medications Medication Drug Class(es) Dates Sig (Normalized) Sig (Original) acetaminophen 325 mg / HYDROcodone bitartrate 5 mg oral tablet (18 sources) Opioid Agonist Start: 03-03-2019 take 1 [...] mouth. folic acid 1 mg oral tablet (11 sources) Start: 2022 take 1 tablet by mouth once daily folic acid 1 mg Tab TAKE 1 TABLET BY MOUTH EVERY DAY FOR 30 DAYS Start Date: 01/20/23 Status: Ordered Comment on above: Take 1 tablet by esther th once daily. hydroxychloroquine sulfate 200 mg oral tablet (2 sources) Antimalarial, Antirheumatic Agent Start: 2023 take 1 tablet by mouth twice daily hydroxychloroquine 200 mg Tab TAKE 1 TABLET BY MOUTH TWICE A DAY Start Date: 02/21/23 Status: Ordered Start: 01-22-2023 take 1 tablet by esther th twice daily hydrOXYchloroQUINE (PLAQUENIL) 200 mg tablet Take 1 tablet by mouth two times a day. 60 tablet 2 01/22/2023 Active Comment on above: Take 1 tablet by esther two times a day. losartan potassium 100 mg oral tablet (18 sources) Angiotensin 2 Receptor Clif Start: 02-21-2023 take 1 tablet by mouth once daily losartan 100 mg Tab TAKE 1 TABLET BY MOUTH EVERY DAY Start Date: 02/21/23 Status: Ordered Start: 03-03-2019 take 1 tablet by mouth once da joe losartan 100 mg Tab 100 mg = 1 tab(s), Oral, Daily Start Date: 03/03/19 Status: Ordered Comment on above: Take 100 mg by mouth once daily. methotrexate 2.5 mg oral tablet (13 sources) Folate Analog Metabolic Inhibitor Start: take 6 tablets by mouth every week methotrexate 2.5 mg Tab TAKE 6 TABLETS BY MOUTH ONE TIME A WEEK Start Date: 02/21/23 Status: Ordered Start: 01-20-2023 take 4 tablets by mo ut every week methotrexate 2.5 mg Tab TAKE [...] 01/22/2023 Discontinued take 1 tablet by esther th three times daily oxybutynin (DITROPAN) 5 mg tablet Take 5 mg by mouth three times daily. 0 Active Comment on above: Take 5 mg by mouth t hree times daily. Take 10 mg by mouth once daily. Take 5 mg by mouth o nce daily. predniSONE 10 mg oral tablet (12 sources) Start: 01-20-2023 take 1 tablet by mouth once daily predniSONE 10 mg Tab TAKE 1 TABLET BY MOUTH EVERY DAY Start Date: 01/20/23 Status: Ordered Start: 12-19-2022 take 2 tablets by mo [facility] once daily predniSONE (DELTASONE) 5 mg tablet [...] Start: 06-26-2022 take 1 tablet by esther once daily predniSONE (DELTASONE) 10 mg tablet Take 1 tablet by mouth once daily. 30 tablet 2 06/26/2022 Active Comment on above: Take 1 tablet by esther once daily. TAKE 1 TABLET BY ESTHER EVERY DAY Take 2 tablets by [facility] once daily. pregabalin 50 mg oral capsule (1 source) Start: 02-21-2023 End: 03-23-2023 take 1 capsule by mouth twice daily pregabalin 50 mg Cap 50 mg = 1 cap(s), Oral, BID, X 30 day(s), # 60 cap(s), Refills(s) 0, Pharmacy: [facility]/pharmacy #[id number], 158, cm, 02/21/23 15:08:00 EST, Height/Length Dosing, 99.3, kg, 02/21/23 15:08:00 EST, Weight Dosing Start Date: 02/21/23 Stop Date: 03/23/23 Status: Ordered tiZANidine 4 mg oral tablet (16 sources) Central alpha-2 Adrenergic Agonist Start: 01-23-2022 take 2 tablets by mouth once daily at bedtime tiZANidine 4 mg Tab TAKE 2 TABLETS BY MOUTH EVERY DAY AT BEDTIME Start Date: 01/23/22 Status: Ordered take 2 capsules by m outh every eight hours as needed tiZANidine HCl [...] (10 sources) Serotonin and Norepinephrine Reuptake Inhibitor Start: 020 End: 023 take 2 capsules by mouth once daily DULoxetine (CYMBALTA) 60 mg capsule 2 capsules Orally Once a day 0 03/03/2019 01/22/2023 Discontinued Comment on above: 2 capsules Orally On ce a day ketoconazole 20 mg/ml topical cream (9 sources) Azole Antifungal Start: 023 End: 023 ketoconazole (NIZORAL) 2 % cream APPLY TO AFFECTED AREA TWICE DAILY FOR SKIN FOLDS 60 g 3 11/07/2022 Active Comment on above: Apply to affected ar ea twice daily. For skin folds APPLY TO AFFECTED AR EA TWICE DAILY FOR SKIN FOLDS triamcinolone acetonide 0.84628 mg/mg topical ointment (8 sources) Corticosteroid Start: 023 triamcinolone (KENALOG) 0.025 % ointment Apply to [...] Onset: 04-30-2022 Episodic Disorders of lipid metabolism (9 sources) Hyperlipidemia; Translations: [Hyperlipidemia, unspecified] Onset: 04-30-2022 03-03-2019 Chronic Essential hypertension (9 sources) Hypertensive disorder; Translations: [Essential (primary) hypertension] [...] level monitoring] Episodic Other connective tissue disease (8 sources) Ganglion cyst of right wrist 03-03-2019 [...] Onset: 06-26-2022 Episodic Other connective tissue disease (2 sources) H/O: osteoarthritis 06-26-2022 Episodic Other inflammatory condition [...] Episodic Other nutritional; endocrine; and metabolic disorders (8 sources) Obesity 11-30-2020 Chronic Other nutritional; endocrine; [...] unspecified] Onset: 09-25-2022 09-25-2022 Chronic Substance-related disorders (8 sources) Smoker 11-30-2020 Chronic Past or Other [...] Test Name Value Interpretation Reference Range Facility [facility] 03-10-2023 CNOV Office Visit (DERMMN ) SHELLY WILSON ([id number]) 1955 F Date Time Provider Department 03/10/23 11:00 AM YANNA MILLER DERMMN During your visit today, we recorded the following information about you: Yanna Miller MD 03/10/2023 1:55 PM Signed Established patient Last Seen: Sameera 07/09 CC: psoriasis HPI: Shelly Wilson 67 year old female here for follow up. Prior treatment of intertrigo with triamcinolone, ketoconazole, A AND D ointment Flares : continuous Location : posterior legs, buttocks, facial skin is dry, scalp is starting to flare as well Symptoms : dry, flaky, itchy, at times painful Current treatment : triamcinolone, ketoconazole - trying to use often but tube runs out quickly Prior treatment : Triamcinolone 2) Intertrigo- improved Joint pain in the wrist, hands. Recently tapered off prednisone. Relevant past medical history : Rheumatoid Arthritis on plaquenil, MTX (6 pills per week) hydrOXYchloroQUINE (PLAQUENIL) 200 mg tablet Take 1 tablet by mouth two times a day. predniSONE (DELTASONE) 5 mg tablet Take 2 [...] by mouth three times daily as needed. HYDROcodone-acetaminop hen (NORCO) 5-325 mg per tablet Take 1 tablet by mouth every 8 hours as needed for pain. prn PE: Gen: Well appearing female in NAD Neuro: Alert, pleasant, cooperative Tae skin type: II Erythematous plaques with micaceous scale on the intergluteal cleft, buttocks, dorsal hands [place] macerated plaques on the abdominal pannus A/P: Shelly Wilson is a 66 year old female with rheumatoid arthritis on HCQ AND methotrexate. Psoriasis vulgaris , BSA2% Some evidence of skin thinning and ecchymoses today. Recommend steroid-sparing topical. - start vtama cream to be applied to affected areas once daily. Okay to apply to the face and buttocks - noted that Plaquenil may worsen psoriasis In reserve: Otezla, discussed risks including GI upset, weight loss, depression (denies history of psychiatric disease/suicide attempt) 2. Intertrigo, improved - associated with obesity - continue ketoconazole 2% to the skin folds BID and keep area clean and dry avoid chafing with use of OTC miconazole powder. Risks/benefits/alterna tives to all procedures and treatments were discussed RTC 2-3 months or sooner if something concerning arises. Resident: Papito Arango MD Dermatology, PGY- 2 I was physically present during the critical/sims portions of this encounter and during all procedures, and agree with the above evaluation, assessment, and treatment plan. I reviewed the patient's chart and discussed care with the patient, Resident, and the other physicians involved. There were no procedures performed during this patient's visit. The resident's note was annotated by me as needed to reflect my direct input. Yanna Miller MD Dermatology Staff Papito Arango MD 03/10/2023 11:54 AM Addendum Psoriasis vulgaris , BSA2% Some evidence of skin thinning and ecchymoses today. Recommend steroid-sparing topical. - start vtama cream to be applied to affected areas once daily. Okay to apply to the face and buttocks 2. Intertrigo, improved - continue ketoconazole 2% to the skin folds BID and keep area clean and dry avoid chafing with use of OTC miconazole powder. Follow up in 2 months virtually Allergies As of Date: 03/10/2023 Noted Allergy Reaction CODEINE 06/27/2022 8 - GI Upset Date Reviewed: 03/10/2023 Reviewed by: Mariah Rebolledo RN - Fully Assessed Reason for Visit: Psoriasis [591] Primary Visit Diagnosis:Psoriasis [L40.9] Other Visit Diagnosis:Intertrigo [L30.4] Order(s):tapinarof (VTAMA) 1 % creamApply to affected area once daily.Disp: 60 gRfl: 4 Prescriptions as of 03/10/2023 - tapinarof (VTAMA) 1 % cream Apply to affected area once daily. - hydrOXYchloroQUINE (PLAQUENIL) 200 mg tablet Take 1 tablet by mouth two times a day. - methotrexate 2.5 mg tablet TAKE 6 TABLETS BY MOUTH ONE TIME A WEEK - ketoconazole (NIZORAL) 2 % cream APPLY TO AFFECTED AREA TWICE DAILY FOR SKIN FOLDS - triamcinolone (KENALOG) 0.025 % ointment Apply to affected area twice daily. For psoriasis - folic acid 1 mg tablet Take 1 tablet by mouth once daily. - losartan (COZAAR) 100 mg tablet Take 100 mg by mouth once daily. - oxybutynin ER (DITROPAN XL) 10 mg 24 hr tablet Take 10 mg by mouth once (more content not included)... Normal [facility] Consent for Treatmenton Consent for Treatment [id number]#1. 00TIFF Normal [facility] Consultation Noteon 02-21-19 Consultation Note Patient: SHELLY HUMPHREYS Age: 67 years Sex: Female : 1955 Associated Diagnoses: None Author: Nyasia Helton PA-C Subjective Chief complaint 02/21/2023 15:11 EST low back pain (Modified) 02/21/2023 15:06 EST Date\Time Correction . Patient is a 67-year-old female. She presents today for follow-up after undergoing a bilateral L5-S1 transforaminal epidural steroid injection. This was done on 01/20/2023 and gave her 85% relief but only for 2 weeks. She states that the 3 injection she has had have either not worked or not work long-term and at this time, she does not want to do any other injections. She just does not feel that it is worth it. She has the lower back pain with bilateral leg pain that she rates a 4/10. She has Ayr given to her by her PCP. She wonders if there is anything else that she can use or do to try to get relief. She is difficulty performing certain maneuvers or doing certain things because the pain. It affects her ambulatory status or her quality of life. Health Status Allergies: Allergic Reactions (Selected) No Known Allergies, Allergies (1) Active Reaction No Known Allergies None Documented Current medications: (Selected) Prescriptions Prescribed pregabalin 50 mg Cap: 50 mg = 1 cap(s), Oral, BID, X 30 day(s), # 60 cap(s), Refills(s) 0, Pharmacy: [facility]/pharmacy #[id number], 158, cm, 02/21/23 15:08:00 EST, Height/Length Dosing, 99.3, kg, 02/21/23 15:08:00 EST, Weight Dosing Documented Medications Documented Oxytrol 5 mg Tab: TAKE 1 TABLET BY MOUTH TWICE A DAY acetaminophen-hydrocod one 325 mg-5 mg oral tablet: 1 tab(s), Oral, TID, Refill(s) 0 folic acid 1 mg Tab: TAKE 1 TABLET BY MOUTH EVERY DAY FOR 30 DAYS hydroxychloroquine 200 mg Tab: TAKE 1 TABLET BY MOUTH TWICE A DAY losartan 100 mg Tab: TAKE 1 TABLET BY MOUTH EVERY DAY methotrexate 2.5 mg Tab: TAKE 6 TABLETS BY MOUTH ONE TIME A WEEK predniSONE 10 mg Tab: TAKE 1 TABLET BY MOUTH EVERY DAY tiZANidine 4 mg Tab: TAKE 2 TABLETS BY MOUTH EVERY DAY AT BEDTIME Problem list: All Problems Hyperlipidemia / SNOMED CT 21388672 / Confirmed Hypertension / SNOMED CT 4842011740 / Confirmed Obesity / SNOMED CT 6538026951 / Confirmed Smoker / SNOMED CT 909476777 / Confirmed History of osteoarthritis / SNOMED CT 884879644 / Confirmed Resolved: Ganglion cyst of right wrist / SNOMED CT 567096579180265 Objective Measurements from flowsheet : Measurements 02/21/2023 15:11 EST Height/Length Measured 158 cm (Modified) BSA Measured 2.09 m2 (Modified) Body Mass Index Measured 39.78 kg/m2 (Modified) Weight Measured 99.3 kg (Modified) 02/21/2023 15:06 EST Height/Length Measured Date\Time Correction Height/Length Dosing 158.0 cm Weight Dosing 99.3 kg BSA Measured Date\Time Correction Body Mass Index Measured Date\Time Correction Weight Measured Date\Time Correction Vital Signs (last 24 hrs) Last Charted Weight 99.3 kg (FEB 21 15:11) BMI 39.78 (FEB 21 15:11) General: Alert and oriented, No acute distress. Overweight Eye: Normal conjunctiva. HENT: Normocephalic, Normal hearing. Cardiovascular: No edema. Musculoskeletal Normal range of motion. Normal strength. 5/5 lower extremity strength Integumentary: Warm, Dry, [place]. Injection site well-healed Neurologic: Alert, Oriented. Psychiatric: Cooperative, Appropriate mood & affect. Impression and Plan Patient is a 67-year-old female with a past medical history significant for a [facility] claim. The approved diagnosis codes are lumbosacral spinal stenosis?M48.07 And strain of unspecified muscles in the right thigh?S76.911A. She is lower back pain with bilateral leg pain that she rates a 4/10 that unfortunate, has not been improved with previous injections and her most recent transforaminal epidural steroid injection also did not give her any long-term relief. We once again reviewed her MRI and discussed options. At this time, patient does not want to have any more injections. She is going to continue on Ayr given to her by her PCP. She is going to start Lyrica 50 mg twice daily. Potential side effects were discussed. How to use the medication was discussed. OARRS was reviewed. COLLETTE score: 46%. Follow-up in 1 month. [facility] Comment on above: Result Comment: Elec tronically Signed By: Sunitha BRADY, Nyasia\.br\Date and Time Signed: 02/21/23 15:28 EST Legal Correspondence Officeo n 02-21-2023 Legal Correspondence Office [id number]#1.0 0TIFF [facility] Office/Clinic Note-Physician on 02-21-2023 Office/Clinic Note-Physician [id number]#1.0 0TIFF [facility] Patient Correspondenceon Patient Correspondence [id number]#1.0 0TIFF [facility] Patient Correspondence [id number]#1.0 0TIFF [facility] Patient Correspondence [id number]#1.0 0TIFF Normal [facility] Patient Correspondence [id number]#1.0 0TIFF Normal [facility] Patient History Officeon Patient History Office [id number]#1.0 0TIFF Normal [facility] Operative Reporton 3 Operative Report Patient: SHELLY HUMPHREYS Age: 67 years Sex: Female : 1955 Associated Diagnoses: None Author: Neeraj HUDSON, Barry Medina Procedure Procedure: Transforaminal Epidural Steroid Injections with [...] Correction: Diagnosis: spinal stenosis, lumbosacral region Normal [facility] Comment on above: Result Comment: Elec tronically Signed By: Neeraj HUDSON, Barry Medina\.br\Date and Time Signed: 01/28/23 12:16 EST CNOVon 01-22-2023 CNOV Office Visit (EDLIAUIN ) SHELLY WILSON ([id number]) 1955 F Date Time Provider Department 01/22/23 [...] Hep panel 08/09 Cxr 08/09 Sed Rate, Jose Date Value Ref Range Status 01/17/2023 12 0 - 20 mm/hr Final 09/25/2022 15 0 - 20 mm/hr Final 08/06/2022 18 0 - 20 mm/hr Final 06/24/2022 21 (H) 0 - 20 mm/hr Final Previous notes: 2 mo ago she developed left index finger followed by right wrist. She had XR showing osteoarthritis. Dr Lala her PCP from [facility] in [place] prescribed prednisone 40 mg/d x 5. Reduced [...] by mouth three times daily as needed. HYDROcodone-acetaminop hen (NORCO) 5-325 mg per tablet Take 1 [...] See ophthalmology (more content not included)... Normal [facility] Consent for Procedure/Surger yon 01-20-2023 Consent for Procedure/Surgery [id number]#1. 00TIFF Normal [facility] Consent for Treatmenton Consent for Treatment [id number]#1.0 0TIFF Normal [facility] Discharge Instructionson Discharge Instructions [id number]#1. 00TIFF Normal [facility] IntraOperative Documentson 1 03-23-2022 IntraOperative Documents [id number]#1. 00TIFF Normal [facility] Main OR Intraoperative Recor don 01-20-2023 Main OR Intraoperative Record IntraOp Document Type FTPM Summary Primary Physician: Barry Pickard MD Finalized Date/Time: 01/20/23 13:46:44 Pt. Name: SHELLY HUMPHREYS/Sex: 1955 Female Med Rec #: [id number] Physician: Barry Pickard MD Financial #: [id number] Pt. Type: P Room/Bed: / Admit/Disch: 01/20/23 13:21:57 - Institution: Case Times FTPM Entry 1 Patient Times In Room 01/20/23 13:40:00 Out Room 01/20/23 13:46:00 Procedure Times Start 01/20/23 13:43:00 Stop 01/20/23 13:45:00 Anesthesia Times Last Modified By: Jean-Pierre ROSE, Padmini Waters 01/20/23 13:46:05 Case Attendance FTPM Entry 1 Entry 2 Entry 3 Case Attendee Barry Pickard MD, RN, Padmini Hernandez RN, [facility] Role Performed Surgeon - Primary Inside Sales Lead - Primary Scrub - Primary Time In 01/20/23 13:40:00 01/20/23 13:40:00 01/20/23 13:40:00 Time Out 01/20/23 13:46:00 01/20/23 13:46:00 01/20/23 13:46:00 Procedure TRANSFORAMINAL EPIDURAL TRANSFORAMINAL EPIDURAL TRANSFORAMINAL EPIDURAL STEROID STEROID STEROID INJECTIO(Bilateral) INJECTIO(Bilateral) INJECTIO(Bilateral) Comments Last Modified By: Jean-Pierre ROSE, Padmini Morejon RN, Padmini Morejon RN, Padmini Waters 01/20/23 13:46:06 01/20/23 13:46:06 01/20/23 13:46:06 Entry 4 Case Attendee Shannon Christian (R) Role Performed Aerial Installer Time In 01/20/23 13:40:00 Time Out 01/20/23 [...] Given Participants Mary ROSE, Neeraj Padilla MD, Jessy Aaron(Shannon Mccann Time Out Complete 01/20/23 13:40:00 Outcomes Met? [...] and tissue Entry 1 Skin Integrity Intact, [place], Warm, and Skin Abnormality No Dry Outcomes [...] Safety Strap, (more content not included)... Normal [facility] Main OR Preoperative Recordo n 01-20-2023 Main OR Preoperative Record Holding Area Document Type FTPM Summary Primary Physician: Barry Pickard MD Finalized Date/Time: 01/20/23 13:38:50 Pt. Name: SHELLY HUMPHREYS/Sex: 1955 Female Med Rec #: [id number] Physician: Barry Pickard MD Financial #: [id number] Pt. Type: P Room/Bed: / Admit/Disch: 01/20/23 [...] By: Suzette Ferrer RN 01/20/23 13:38 Normal [facility] CBC W Auto Differential pane l (Bld)on 01-17-2023 Basophils (Bld) [#/Vol] 0.12 10*3/uL High <0.11 [facility] Comment on above: Order Comment: Speci men Type: BLOOD SPECIMENOrdering Facility: [facility] Address: [address] [place] [address] Performed By: #### 5 7021-8 ####[facility] LABCLIA [id number] [place] [address] Basophils/100 WBC (Bld) 0.8 % Normal [facility] Comment on above: Order Comment: Speci men Type: BLOOD SPECIMENOrdering Facility: [facility] Address: [address] [place] [address] Performed By: #### 5 7021-8 ####[facility] LABCLIA [id number] [place] [address] Differential cell count method Nom (Bld) Auto Normal [facility] Comment on above: Order Comment: Speci men Type: BLOOD SPECIMENOrdering Facility: [facility] Address: [address] [place] [address] Performed By: #### 5 7021-8 ####[facility] LABCLIA [id number] [place] [address] Eosinophils (Bld) [#/Vol] 0.17 10*3/uL Normal <0.46 [facility] Comment on above: Order Comment: Speci men Type: BLOOD SPECIMENOrdering Facility: [facility] Address: [address] [place] [address] Performed By: #### 5 7021-8 ####[facility] LABCLIA [id number] [place] [address] Eosinophils/100 WBC (Bld) 1.1 % Normal [facility] Comment on above: Order Comment: Speci men Type: BLOOD SPECIMENOrdering Facility: [facility] Address: [address] [place] [address] Performed By: #### 5 7021-8 ####[facility] LABCLIA [id number] [place] [address] Erythrocyte distribution width (RBC) [Ratio] 13.2 % Normal 11.5-15.0 [facility] Comment on above: Order Comment: Speci men Type: BLOOD SPECIMENOrdering Facility: [facility] Address: [address] [place] [address] Performed By: #### 5 7021-8 ####[facility] LABCLIA [id number] [place] [address] Hematocrit (Bld) [Volume fraction] 44.1 % Normal 36.0-46.0 [facility] [facility] Comment on above: Order Comment: Speci men Type: BLOOD SPECIMENOrdering Facility: [facility] [place] Address: [address] [place] [address] Performed By: #### 5 7021-8 ####[facility] LABCLIA [id number] [place] [address] Hemoglobin (Bld) [Mass/Vol] 14.4 g/dL Normal 11.5-15.5 [facility] Comment on above: Order Comment: Speci men Type: BLOOD SPECIMENOrdering Facility: [facility] [place] Address: [address] [place] [address] Performed By: #### 5 7021-8 ####[facility] LABCLIA [id number] [place] [address] Immature granulocytes (Bld) [#/Vol] 0.12 10*3/uL High <0.10 [facility] Comment on above: Order Comment: Speci men Type: BLOOD SPECIMENOrdering Facility: [facility] [place] Address: [address] [place] [address] Performed By: #### 5 7021-8 ####[facility] LABCLIA [id number] [place] [address] Immature granulocytes/100 WBC (Bld) 0.8 % Normal [facility] Comment on above: Order Comment: Speci men Type: BLOOD SPECIMENOrdering Facility: [facility] [place] Address: [address] [place] [address] Performed By: #### 5 7021-8 ####[facility] LABCLIA [id number] [place] [address] Lymphocytes (Bld) [#/Vol] 2.38 10*3/uL Normal 1.00-4.00 [facility] Comment on above: Order Comment: Speci men Type: BLOOD SPECIMENOrdering Facility: [facility] [place] Address: [address] [place] [address] Performed By: #### 5 7021-8 ####[facility] LABCLIA [id number] [place] [address] Lymphocytes/100 WBC (Bld) 15.3 % Normal [facility] Comment on above: Order Comment: Speci men Type: BLOOD SPECIMENOrdering Facility: [facility] [place] Address: [address] [place] [address] Performed By: #### 5 7021-8 ####[facility] LABCLIA [id number] [place] [address] MCH (RBC) [Entitic mass] 31.4 pg Normal 26.0-34.0 [facility] Comment on above: Order Comment: Speci men Type: BLOOD SPECIMENOrdering Facility: [facility] [place] Address: [address] [place] [address] Performed By: #### 5 7021-8 ####[facility] LABCLIA [id number] [place] [address] MCHC (RBC) [Mass/Vol] 32.7 g/dL Normal 30.5-36.0 [facility] Comment on above: Order Comment: Speci men Type: BLOOD SPECIMENOrdering Facility: [facility] [place] Address: [address] [place] [address] Performed By: #### 5 7021-8 ####[facility] LABCLIA [id number] [place] [address] MCV (RBC) [Entitic vol] 96.3 fL Normal 80.0-100.0 [facility] Comment on above: Order Comment: Speci men Type: BLOOD SPECIMENOrdering Facility: [facility] [place] Address: [address] [place] [address] Performed By: #### 5 7021-8 ####[facility] LABCLIA [id number] [place] [address] Monocytes (Bld) [#/Vol] 1.19 10*3/uL High <0.87 [facility] Comment on above: Order Comment: Speci men Type: BLOOD SPECIMENOrdering Facility: [facility] [place] Address: [address] [place] [address] Performed By: #### 5 7021-8 ####[facility] LABCLIA [id number] [place] [address] Monocytes/100 WBC (Bld) 7.7 % Normal [facility] Comment on above: Order Comment: Speci men Type: BLOOD SPECIMENOrdering Facility: [facility] [place] Address: [address] [place] [address] Performed By: #### 5 7021-8 ####[facility] LABCLIA [id number] [place] [address] Neutrophils (Bld) [#/Vol] 11.55 10*3/uL High 1.45-7.50 [facility] Comment on above: Order Comment: Speci men Type: BLOOD SPECIMENOrdering Facility: [facility] [place] Address: [address] [place] [address] Performed By: #### 5 7021-8 ####[facility] LABCLIA [id number] [place] [address] Neutrophils/100 WBC (Bld) 74.3 % Normal [facility] Comment on above: Order Comment: Speci men Type: BLOOD SPECIMENOrdering Facility: [facility] [place] Address: [address] [place] [address] Performed By: #### 5 7021-8 ####[facility] LABCLIA [id number] [place] [address] Nucleated RBC (Bld) [#/Vol] 10*3/uL Normal <0.01 [facility] Comment on above: Order Comment: Speci men Type: BLOOD SPECIMENOrdering Facility: [facility] [place] Address: [address] [place] [address] Performed By: #### 5 7021-8 ####[facility] LABCLIA [id number] [place] [address] Nucleated RBC/100 WBC (Bld) [Ratio] 0.0 /100 WBC Normal [facility] Comment on above: Order Comment: Speci men Type: BLOOD SPECIMENOrdering Facility: [facility] [place] Address: [address] [place] [address] Performed By: #### 5 7021-8 ####[facility] LABCLIA [id number] [place] [address] Platelet mean volume (Bld) [Entitic vol] 8.8 fL Low 9.0-12.7 [facility] Comment on above: Order Comment: Speci men Type: BLOOD SPECIMENOrdering Facility: [facility] [place] Address: [address] [place] [address] Performed By: #### 5 7021-8 ####[facility] LABCLIA [id number] [place] [address] Platelets (Bld) [#/Vol] 413 10*3/uL High 150-400 [facility] Comment on above: Order Comment: Speci men Type: BLOOD SPECIMENOrdering Facility: [facility] [place] Address: [address] [place] [address] Performed By: #### 5 7021-8 ####[facility] LABCLIA [id number] [place] [address] RBC (Bld) [#/Vol] 4.58 10*6/uL Normal 3.90-5.20 [facility] Comment on above: Order Comment: Speci men Type: BLOOD SPECIMENOrdering Facility: [facility] [place] Address: [address] [place] [address] Performed By: #### 5 7021-8 ####[facility] LABCLIA [id number] [place] [address] WBC (Bld) [#/Vol] 15.53 10*3/uL High 3.70-11.00 [facility] Comment on above: Order Comment: Speci men Type: BLOOD SPECIMENOrdering Facility: [facility] [place] Address: [address] [place] [address] Performed By: #### 5 7021-8 ####[facility] LABCLIA [id number] [place] [address] Comprehensive metabolic 2000 panelon 01-17-2023 Albumin [Mass/Vol] 4.5 g/dL Normal 3.9-4.9 [facility] Comment on above: Order Comment: Speci men Type: BLOOD SPECIMENOrdering Facility: [facility] [place] Address: [address] [place] [address] Performed By: #### 2 4323-8 ####[facility] LABCLIA [id number] [place] [address] ALP [Catalytic activity/Vol] 75 U/L Normal 34-123 [facility] Comment on above: Order Comment: Speci men Type: BLOOD SPECIMENOrdering Facility: [facility] [place] Address: [address] [place] [address] Performed By: #### 2 4323-8 ####[facility] LABCLIA [id number] [place] [address] ALT [Catalytic activity/Vol] 12 U/L Normal 7-38 [facility] Comment on above: Order Comment: Speci men Type: BLOOD SPECIMENOrdering Facility: [facility] [place] Address: [address] [place] [address] Performed By: #### 2 4323-8 ####[facility] LABCLIA [id number] [place] [address] Anion gap [Moles/Vol] 9 mmol/L Normal 9-18 [facility] Comment on above: Order Comment: Speci men Type: BLOOD SPECIMENOrdering Facility: [facility] [place] Address: [address] [place] [address] Performed By: #### 2 4323-8 ####[facility] LABCLIA [id number] [place] [address] AST [Catalytic activity/Vol] 17 U/L Normal 13-35 [facility] Comment on above: Order Comment: Speci men Type: BLOOD SPECIMENOrdering Facility: [facility] [place] Address: [address] [place] [address] Performed By: #### 2 4323-8 ####[facility] LABCLIA [id number] [place] [address] Bilirubin [Mass/Vol] 0.4 mg/dL Normal 0.2-1.3 [facility] Comment on above: Order Comment: Speci men Type: BLOOD SPECIMENOrdering Facility: [facility] [place] Address: [address] [place] [address] Performed By: #### 2 4323-8 ####[facility] LABCLIA [id number] [place] [address] Calcium [Mass/Vol] 9.6 mg/dL Normal 8.5-10.2 [facility] Comment on above: Order Comment: Speci men Type: BLOOD SPECIMENOrdering Facility: [facility] [place] Address: [address] [place] [address] Performed By: #### 2 4323-8 ####[facility] LABCLIA [id number] [place] [address] Chloride [Moles/Vol] 101 mmol/L Normal 97-105 [facility] Comment on above: Order Comment: Speci men Type: BLOOD SPECIMENOrdering Facility: [facility] [place] Address: [address] [place] [address] Performed By: #### 2 4323-8 ####[facility] LABCLIA [id number] [place] [address] CO2 [Moles/Vol] 28 mmol/L Normal 22-30 [facility] Comment on above: Order Comment: Speci men Type: BLOOD SPECIMENOrdering Facility: [facility] [place] Address: [address] [place] [address] Performed By: #### 2 4323-8 ####[facility] LABCLIA [id number] [place] [address] Creatinine [Mass/Vol] 0.67 mg/dL Normal 0.58-0.96 [facility] Comment on above: Order Comment: Tam purvis Type: BLOOD SPECIMENOrdering Facility: [facility] [place] Address: [address] [place] [address] Performed By: #### 2 4323-8 ####[facility] LABCLIA [id number] [place] [address] Creatinine and Glomerular filtration rate.predicted panel (S/P/Bld) 96 mL/min/1.73m??? Normal >=60 [facility] Comment on above: Order Comment: Speci men Type: BLOOD SPECIMENOrdering Facility: [facility] [place] Address: [address] [place] [address] Result Comment: Carmen mated Glomerular Filtration Rate [...] actual GFR. Performed By: #### 2 4323-8 ####[facility] LABCLIA [id number] [place] [address] Glucose [Mass/Vol] 104 mg/dL High 74-99 [facility] Comment on above: Order Comment: Tam yaniv Type: BLOOD SPECIMENOrdering Facility: [facility] [place] Address: [address] [place] [address] Result Comment: The [place] Diabetes Association (ADA) provides guidance for cutoff [...] Standards of Medical Care in Diabetes 2016, [place] [employer]. Diabetes Care. 2016.39(Suppl 1). Performed By: #### 2 4323-8 ####[facility] LABCLIA [id number] [place] [address] Potassium [Moles/Vol] 4.1 mmol/L Normal 3.7-5.1 [facility] Comment on above: Order Comment: Speci men Type: BLOOD SPECIMENOrdering Facility: [facility] [place] Address: [address] [place] [address] Performed By: #### 2 4323-8 ####[facility] LABCLIA [id number] [place] [address] Protein [Mass/Vol] 6.9 g/dL Normal 6.3-8.0 [facility] Comment on above: Order Comment: Speci men Type: BLOOD SPECIMENOrdering Facility: [facility] [place] Address: [address] [place] [address] Performed By: #### 2 4323-8 ####[facility] LABCLIA [id number] [place] [address] Sodium [Moles/Vol] 138 mmol/L Normal 136-144 [facility] Comment on above: Order Comment: Speci men Type: BLOOD SPECIMENOrdering Facility: [facility] [place] Address: [address] [place] [address] Performed By: #### 2 4323-8 ####[facility] LABCLIA [id number] [place] [address] Urea nitrogen [Mass/Vol] 11 mg/dL Normal 7-21 [facility] Comment on above: Order Comment: Speci men Type: BLOOD SPECIMENOrdering Facility: [facility] [place] Address: [address] [place] [address] Performed By: #### 2 4323-8 ####[facility] LABCLIA [id number] [place] [address] ESR Westergren method (Bld) [Velocity]on 01-17-2023 ESR (Bld) [Velocity] 12 mm/h Normal 0-20 [facility] Comment on above: Order Comment: Speci men Type: BLOOD SPECIMENOrdering Facility: [facility] [place] Address: [address] [place] [address] Performed By: #### 4 537-7 ####[facility] LABCLIA [id number] [address] [id number] [address] [place] Patient Correspondenceon Patient Correspondence [id number]#1.0 0TIFF Normal [facility] Workers' Comp Officeon 01-02 Workers' Comp Office [id number]#5.0 0TIFF Normal [facility] CNPNon 11-08-2022 CNPN Telephone (DERMMN) SHELLY WILSON ([id number]) 1955 F Date Time Provider Department 11/08/22 YANNA MILLER DERMNASH During your visit today, we recorded the following information about you: Hallie Stallings 11/08/2022 11:14 AM Signed Patient called in to let Dr. Miller that the triamcinolone (KENALOG) 0.025 % ointment does not work. Patient wants to know if she can be prescribed something else. ketoconazole (NIZORAL) 2 % cream is working well for the patient. Yanna Miller MD 11/10/2022 2:00 PM Signed Virtual visit for psoriasis please. Christina Pereira 11/11/2022 2:43 PM Signed Patient is scheduling a virtual visit with Dr. Miller. Allergies As of Date: 11/08/2022 Noted Allergy Reaction CODEINE 06/27/2022 8 - GI Upset Date Reviewed: 09/25/2022 Reviewed by: Yasmin Abdul Ma - Fully Assessed Reason for Visit: Patient Question [1477] Prescriptions as of 11/11/2022 - ketoconazole (NIZORAL) [...] 100 mg tab Take by mouth. - HYDROcodone-acetaminop hen (NORCO) 5-325 mg per tablet Take 1 tablet by mouth every 8 hours as needed for pain. prn Problem List As Of Date: 11/08/2022 (None) Encounter Status:Closed by HALLIE STALLINGS on 11/08/22 [facility] Wilian 10-28-2022 TRACYN Telephone (DARNELL) SHELLY WILSON ([id number]) 1955 F Date Time Provider Department 10/28/22 JOHN LIZ During your visit today, we recorded the following information about you: Noa Underwood 10/28/2022 3:39 PM Signed Last time patient [...] WBC went from 21 to 16. Lucinda Agarwal RN 10/29/2022 11:55 AM Addendum I tried to call Shelly today to discuss, left her a VM to give us a call back. Lucinda MONGE, Lucinda Forbes RN 10/29/2022 1:38 PM Signed Patient called [...] 100 mg tab Take by mouth. - HYDROcodone-acetaminop hen (NORCO) 5-325 mg per tablet Take 1 tablet by mouth every 8 hours as needed for pain. prn Problem List As Of Date: 10/28/2022 (None) Encounter Status:Closed by LUCINDA AGARWAL [facility]/29/22 [facility] SHELLY WIL[facility] ([id number]) 1955 F Date Time Provider Department 10/01/22 JOHN LIZ During your visit today, we recorded the following information about you: Liana Lynn 10/01/2022 4:14 PM Signed Pt called to let dr. Liz know since she changed how she takes her medications her feet and ankles are swelling Please call pt [phone] John Liz MD 10/02/2022 10:53 AM Signed Is she talking about steroid taper? Is she on 5 mg/d? She can try 5 mg and 10 mg every other day alternating. Higher dose of MTX will take few weeks to kick in. MD Kulwant Sandoval Sarah 10/02/2022 1:24 PM [facility] 10/02/2022 1:57 PM Signed Left message to [...] 100 mg tab Take by mouth. - HYDROcodone-acetaminop hen (NORCO) 5-325 mg per tablet Take 1 tablet by mouth every 8 hours as needed for pain. prn Problem List As Of Date: 10/01/2022 (None) Encounter Status:Closed by KARYN KOENIG on 10/02/22 Normal [facility] CBC W Auto Differential pane l (Bld)on 09-25-2022 Basophils (Bld) [#/Vol] 0.08 10*3/uL <0.11 k/uL [facility] Basophils/100 WBC (Bld) 0.4 % [facility] Differential cell count method Nom (Bld) Auto [facility] Eosinophils (Bld) [#/Vol] <0.46 k/uL [facility] Eosinophils/100 WBC (Bld) 0.1 % [facility] Erythrocyte distribution width (RBC) [Ratio] 14.6 % 11.5 - 15.0 % [facility] Hematocrit (Bld) [Volume fraction] 46.6 % High 36.0 - 46.0 % [facility] Hemoglobin (Bld) [Mass/Vol] 15.4 g/dL 11.5 - 15.5 g/dL [facility] Immature granulocytes (Bld) [#/Vol] 0.23 10*3/uL High <0.10 k/uL [facility] Immature granulocytes/100 WBC (Bld) 1.2 % [facility] Lymphocytes (Bld) [#/Vol] 1.81 10*3/uL 1.00 - 4.00 k/uL [facility] Lymphocytes/100 WBC (Bld) 9.3 % [facility] MCH (RBC) [Entitic mass] 30.8 pg 26.0 - 34.0 pg [facility] MCHC (RBC) [Mass/Vol] 33.0 g/dL 30.5 - 36.0 g/dL [facility] MCV (RBC) [Entitic vol] 93.2 fL 80.0 - 100.0 fL [facility] Monocytes (Bld) [#/Vol] 1.05 10*3/uL High <0.87 k/uL [facility] Monocytes/100 WBC (Bld) 5.4 % [facility] Neutrophils (Bld) [#/Vol] 16.19 10*3/uL High 1.45 - 7.50 k/uL [facility] Neutrophils/100 WBC (Bld) 83.6 % [facility] Nucleated RBC (Bld) [#/Vol] <0.01 k/uL [facility] Nucleated RBC/100 WBC (Bld) [Ratio] 0.0 /100 WBC [facility] Platelet mean volume (Bld) [Entitic vol] 9.4 fL 9.0 - 12.7 fL [facility] Platelets (Bld) [#/Vol] 454 10*3/uL High 150 - 400 k/uL [facility] RBC (Bld) [#/Vol] 5.00 10*6/uL 3.90 - 5.2 0 m/uL [facility] WBC (Bld) [#/Vol] 19.38 10*3/uL High 3.70 - 11 .00 k/uL [facility] Basophils (Bld) [#/Vol] 0.08 10*3/uL Normal <0.11 [facility] Comment on above: Order Comment: Speci men Type: BLOOD SPECIMENOrdering Facility: [facility] [place] Address: [address] [place] [address] Performed By: #### 5 7021-8, 4537-7 ####[facility] LABCLIA [id number] [place] [address] [place] Basophils/100 WBC (Bld) 0.4 % Normal [facility] Comment on above: Order Comment: Speci men Type: BLOOD SPECIMENOrdering Facility: [facility] [place] Address: [address] [place] [address] Performed By: #### 5 7021-8, 4537-7 ####[facility] LABCLIA [id number] [place] [address] [place] Differential cell count method Nom (Bld) Auto Normal [facility] Comment on above: Order Comment: Speci men Type: BLOOD SPECIMENOrdering Facility: [facility] [place] Address: [address] [place], [place] [address] Performed By: #### 5 7021-8, 4537-7 ####[facility] LABCLIA [id number] [place] [address] [place] Eosinophils (Bld) [#/Vol] 10*3/uL Normal <0.46 [facility] Comment on above: Order Comment: Speci men Type: BLOOD SPECIMENOrdering Facility: [facility] [place] Address: [address] [place] [address] Performed By: #### 5 7021-8, 4537-7 ####[facility] LABCLIA [id number] [place] [address] [place] Eosinophils/100 WBC (Bld) 0.1 % Normal [facility] Comment on above: Order Comment: Speci men Type: BLOOD SPECIMENOrdering Facility: [facility] [place] Address: [address] [place] [address] Performed By: #### 5 7021-8, 7-7 ####[facility] LABCLIA [id number] [place] [address] [place] Erythrocyte distribution width (RBC) [Ratio] 14.6 % Normal 11.5-15.0 [facility] Comment on above: Order Comment: Speci men Type: BLOOD SPECIMENOrdering Facility: [facility] [place] Address: [address] [place] [address] Performed By: #### 5 7021-8, 4536-7 ####[facility] LABIA [id number] [place] [address] [place] Hematocrit (Bld) [Volume fraction] 46.6 % High 36.0-46.0 [facility] Comment on above: Order Comment: Speci men Type: BLOOD SPECIMENOrdering Facility: [facility] [place] Address: [address] [place] [address] Performed By: #### 5 7021-8, 7-7 ####[facility] LABIA [id number] [place] [address] [place] Hemoglobin (Bld) [Mass/Vol] 15.4 g/dL Normal 11.5-15.5 [facility] Comment on above: Order Comment: Speci men Type: BLOOD SPECIMENOrdering Facility: [facility] [place] Address: [address] [place], [place] [address] Performed By: #### 5 7021-8, 7-7 ####[facility] LABIA [id number] [place] [address] [place] Immature granulocytes (Bld) [#/Vol] 0.23 10*3/uL High <0.10 [facility] Comment on above: Order Comment: Speci men Type: BLOOD SPECIMENOrdering Facility: [facility] [place] Address: [address] [place], [place] [address] Performed By: #### 5 7021-8, 4536-7 ####[facility] LABCLIA [id number] [place] [address] [place] Immature granulocytes/100 WBC (Bld) 1.2 % Normal [facility] Comment on above: Order Comment: Speci men Type: BLOOD SPECIMENOrdering Facility: [facility] [place] Address: [address] [place], [place] [address] Performed By: #### 5 7021-8, 4536-7 ####[facility] LABCLIA [id number] [place] [address] [place] Lymphocytes (Bld) [#/Vol] 1.81 10*3/uL Normal 1.00-4.00 [facility] Comment on above: Order Comment: Speci men Type: BLOOD SPECIMENOrdering Facility: [facility] [place] Address: [address] [place], [place] [address] Performed By: #### 5 7021-8, 4536-7 ####[facility] LABCLIA [id number] [place] [address] [place] Lymphocytes/100 WBC (Bld) 9.3 % Normal [facility] Comment on above: Order Comment: Speci men Type: BLOOD SPECIMENOrdering Facility: [facility] Address: [address] [place], [place] [address] Performed By: #### 5 7021-8, 4536-7 ####[facility] LABCLIA [id number] [place] [address] [place] MCH (RBC) [Entitic mass] 30.8 pg Normal 26.0-34.0 [facility] Comment on above: Order Comment: Speci men Type: BLOOD SPECIMENOrdering Facility: [facility] [place] Address: [address] [address] Performed By: #### 5 7021-8, 453-7 ####[facility] LABCLIA [id number] [place] [address] [place] MCHC (RBC) [Mass/Vol] 33.0 g/dL Normal 30.5-36.0 [facility] Comment on above: Order Comment: Speci men Type: BLOOD SPECIMENOrdering Facility: [facility] [place] Address: [address] [place] [address] Performed By: #### 5 7021-8, 453-7 ####[facility] LABCLIA [id number] [place] [address] [place] MCV (RBC) [Entitic vol] 93.2 fL Normal 80.0-100.0 [facility] Comment on above: Order Comment: Speci men Type: BLOOD SPECIMENOrdering Facility: [facility] [place] Address: [address] [place] [address] Performed By: #### 5 7021-8, 4536-7 ####[facility] LABIA [id number] [place] [address] [place] Monocytes (Bld) [#/Vol] 1.05 10*3/uL High <0.87 [facility] Comment on above: Order Comment: Speci men Type: BLOOD SPECIMENOrdering Facility: [facility] [place] Address: [address] [place], [place] [address] Performed By: #### 5 7021-8, 7-7 ####[facility] LABCLIA [id number] [address] [place] Monocytes/100 WBC (Bld) 5.4 % Normal [facility] Comment on above: Order Comment: Speci men Type: BLOOD SPECIMENOrdering Facility: [facility] [place] Address: [address] [place], [place] [address] Performed By: #### 5 7021-8, 4536-7 ####[facility] LABCLIA [id number] [place] [address] [place] Neutrophils (Bld) [#/Vol] 16.19 10*3/uL High 1.45-7.50 [facility] Comment on above: Order Comment: Speci men Type: BLOOD SPECIMENOrdering Facility: [facility] [place] Address: [address] Performed By: #### 5 7021-8, 4536-7 ####[facility] LABCLIA [id number] [place] [address] [place] Neutrophils/100 WBC (Bld) 83.6 % Normal [facility] Comment on above: Order Comment: Speci men Type: BLOOD SPECIMENOrdering Facility: [facility] [place] Address: [address] [place], [place] [address] Performed By: #### 5 7021-8, 7 ####[facility] LABCLIA [id number] [place] [address] [place] Nucleated RBC (Bld) [#/Vol] 10*3/uL Normal <0.01 [facility] Comment on above: Order Comment: Speci men Type: BLOOD SPECIMENOrdering Facility: [facility] [place] Address: [address] [place] [address] Performed By: #### 5 7021-8, 7 ####[facility] LABCLIA [id number] [place] [address] [place] Nucleated RBC/100 WBC (Bld) [Ratio] 0.0 /100 WBC Normal [facility] Comment on above: Order Comment: Speci men Type: BLOOD SPECIMENOrdering Facility: [facility] [place] Address: [address] [place], [place] [address] Performed By: #### 5 7021-8, 4536-7 ####[facility] LABCLIA [id number] [place] [address] [place] Platelet mean volume (Bld) [Entitic vol] 9.4 fL Normal 9.0-12.7 [facility] Comment on above: Order Comment: Speci men Type: BLOOD SPECIMENOrdering Facility: [facility] [place] Address: [address] [place] [address] Performed By: #### 5 7021-8, 4537-7 ####[facility] LABCLIA [id number] [place] [address] [place] Platelets (Bld) [#/Vol] 454 10*3/uL High 150-400 [facility] Comment on above: Order Comment: Speci men Type: BLOOD SPECIMENOrdering Facility: [facility] [place] Address: [address] [place] [address] Performed By: #### 5 7021-8, 4537-7 ####[facility] LABCLIA [id number] [place] [address] [place] RBC (Bld) [#/Vol] 5.00 10*6/uL Normal 3.90-5.20 [facility] Comment on above: Order Comment: Speci men Type: BLOOD SPECIMENOrdering Facility: [facility] [place] Address: [address] [place], [place] [address] Performed By: #### 5 7021-8, 4537-7 ####[facility] LABCLIA [id number] [place] [address] [place] WBC (Bld) [#/Vol] 19.38 10*3/uL High 3.70-11.00 [facility] Comment on above: Order Comment: Speci men Type: BLOOD SPECIMENOrdering Facility: [facility] [place] Address: [address] [place], [place] [address] Performed By: #### 5 7021-8, 4537-7 ####[facility] LABCLIA [id number] [facility] [id number] [address] [place] [facility] CNOVon 09-25-2022 CNOV Office Visit (DARNELL ) SHELLY WILSON ([id number]) 1955 F Date Time Provider Department 09/25/22 [...] wrist. She had XR showing osteoarthritis. Dr Lala her PCP from [facility] in [place] prescribed prednisone 40 mg/d x 5. Reduced [...] Sodium 100 mg tab Take by mouth. HYDROcodone-acetaminop hen (NORCO) 5-325 mg per tablet Take 1 [...] John Liz MD Referring Provider: JOHN LIZ [[id number]] Allergies As of Date: 09/25/2022 Noted Allergy Reaction CODEINE 06/27/2022 8 - GI Upset Date Reviewed: 09/25/2022 Reviewed by: Chantell Minaya (more content not included)... Normal [facility] Comprehensive metabolic 2000 panelon 09-25-2022 Albumin [Mass/Vol] 4.2 g/dL Normal 3.9-4.9 [facility] Comment on above: Order Comment: Tam purvis Type: BLOOD SPECIMENOrdering Facility: [facility] Address: [address] [address] Performed By: #### 2 4323-8 ####[facility] LABCLIA [id number] [address] [place] ALP [Catalytic activity/Vol] 72 U/L Normal 34-123 [facility] Comment on above: Order Comment: Tam purvis Type: BLOOD SPECIMENOrdering Facility: [facility] Address: [address] [address] Performed By: #### 2 4323-8 ####[facility] LABCLIA [id number] [place] [address] [place] ALT [Catalytic activity/Vol] 28 U/L Normal 7-38 [facility] Comment on above: Order Comment: Speci men Type: BLOOD SPECIMENOrdering Facility: [facility] Address: [address] [place], [place] [address] Performed By: #### 2 4323-8 ####[facility] LABCLIA [id number] [place] [address] [place] Anion gap [Moles/Vol] 12 mmol/L Normal 9-18 [facility] Comment on above: Order Comment: Speci men Type: BLOOD SPECIMENOrdering Facility: [facility] Address: [address] [place] [address] Performed By: #### 2 4323-8 ####[facility] LABCLIA [id number] [place] [address] [place] AST [Catalytic activity/Vol] 24 U/L Normal 13-35 [facility] Comment on above: Order Comment: Speci men Type: BLOOD SPECIMENOrdering Facility: [facility] Address: [address] [place], [place] [address] Performed By: #### 2 4323-8 ####[facility] LABCLIA [id number] [place] [address] [place] Bilirubin [Mass/Vol] 0.4 mg/dL Normal 0.2-1.3 [facility] Comment on above: Order Comment: Speci men Type: BLOOD SPECIMENOrdering Facility: [facility] Address: [address] Performed By: #### 2 4323-8 ####[facility] LABCLIA [id number] [place] [address] [place] Calcium [Mass/Vol] 9.9 mg/dL Normal 8.5-10.2 [facility] Comment on above: Order Comment: Speci men Type: BLOOD SPECIMENOrdering Facility: [facility] [place] Address: [address] Performed By: #### 2 4323-8 ####[facility] LABCLIA [id number] [place] [address] [place] Chloride [Moles/Vol] 102 mmol/L Normal 97-105 [facility] Comment on above: Order Comment: Speci men Type: BLOOD SPECIMENOrdering Facility: [facility] [place] Address: [address] Performed By: #### 2 4323-8 ####[facility] LABCLIA [id number] [place] [address] [place] CO2 [Moles/Vol] 26 mmol/L Normal 22-30 [facility] Comment on above: Order Comment: Speci men Type: BLOOD SPECIMENOrdering Facility: [facility] Address: [address] Performed By: #### 2 4323-8 ####[facility] LABCLIA [id number] [place] [address] [place] Creatinine [Mass/Vol] 0.62 mg/dL Normal 0.58-0.96 [facility] Comment on above: Order Comment: Speci men Type: BLOOD SPECIMENOrdering Facility: [facility] [place] Address: [address] Performed By: #### 2 4323-8 ####[facility] LABCLIA [id number] [place] [address] [place] ESTIMATED GLOMERULAR FILTRATION RATE 98 mL/min/1.73m??? Normal >=60 [facility] Comment on above: Order Comment: Speci men Type: BLOOD SPECIMENOrdering Facility: [facility] [place] Address: [address] Result Comment: Carmen mated Glomerular Filtration Rate [...] actual GFR. Performed By: #### 2 4323-8 ####[facility] LABIA [id number] [place] [address] [place] Glucose [Mass/Vol] 101 mg/dL High 74-99 [facility] Comment on above: Order Comment: Tam purvis Type: BLOOD SPECIMENOrdering Facility: [facility] [place] Address: [address] [id number] Result Comment: The [place] Diabetes Association (ADA) provides guidance for cutoff [...] Standards of Medical Care in Diabetes 2016, [place] [employer]. Diabetes Care. 2016.39(Suppl 1). Performed By: #### 2 4323-8 ####[facility] LABIA [id number] [place] [id number] [place] Potassium [Moles/Vol] 4.6 mmol/L Normal 3.7-5.1 [facility] Comment on above: Order Comment: Tam purvis Type: BLOOD SPECIMENOrdering Facility: [facility] Address: [address] [place] [address] Performed By: #### 2 4323-8 ####[facility] LABIA [id number] [address] [address] [place] Protein [Mass/Vol] 6.8 g/dL Normal 6.3-8.0 [facility] Comment on above: Order Comment: Speci men Type: BLOOD SPECIMENOrdering Facility: [facility] Address: [address] [address] Performed By: #### 2 4323-8 ####[facility] LABCLIA [id number] [place] [address] [place] Sodium [Moles/Vol] 140 mmol/L Normal 136-144 [facility] Comment on above: Order Comment: Speci men Type: BLOOD SPECIMENOrdering Facility: [facility] [place] Address: [address] [place] [address] Performed By: #### 2 4323-8 ####[facility] LABCLIA [id number] [place] [address] [place] Urea nitrogen [Mass/Vol] 15 mg/dL Normal 7-21 [facility] Comment on above: Order Comment: Speci men Type: BLOOD SPECIMENOrdering Facility: [facility] [place] Address: [address] [place] [address] Performed By: #### 2 4323-8 ####[facility] LABCLIA [id number] [place] [address] [place] ESR Westergren method (Bld) [Velocity]on 09-25-2022 ESR (Bld) [Velocity] 15 mm/h Normal 0-20 [facility] Comment on above: Order Comment: Speci men Type: BLOOD SPECIMENOrdering Facility: [facility] Address: [address] [place] [address] Performed By: #### 5 7021-8, 4537-7 ####[facility] LABCLIA [id number] [place] [address] [place] CBC W Auto Differential pane l (Bld)on 08-06-2022 Basophils (Bld) [#/Vol] 0.11 10*3/uL High <0.11 [facility] Comment on above: Order Comment: Speci men Type: BLOOD SPECIMENOrdering Facility: [facility] [place] Address: [address] [address] Performed By: #### 5 7021-8 ####[facility] LABCLIA [id number] [place] [address] Basophils/100 WBC (Bld) 0.6 % Normal [facility] Comment on above: Order Comment: Speci men Type: BLOOD SPECIMENOrdering Facility: [facility] [place] Address: [address] [address] Performed By: #### 5 7021-8 ####[facility] LABCLIA [id number] [place] [address] Differential cell count method Nom (Bld) Auto Normal [facility] Comment on above: Order Comment: Speci men Type: BLOOD SPECIMENOrdering Facility: [facility] [place] Address: [address] [address] Performed By: #### 5 7021-8 ####[facility] LABCLIA [id number] [place] [address] Eosinophils (Bld) [#/Vol] 0.09 10*3/uL Normal <0.46 [facility] Comment on above: Order Comment: Speci men Type: BLOOD SPECIMENOrdering Facility: [facility] [place] Address: [address] [address] Performed By: #### 5 7021-8 ####[facility] LABCLIA [id number] [place] [address] Eosinophils/100 WBC (Bld) 0.5 % Normal [facility] Comment on above: Order Comment: Speci men Type: BLOOD SPECIMENOrdering Facility: [facility] Address: [address] [address] Performed By: #### 5 7021-8 ####[facility] LABCLIA [id number] [place] [address] Erythrocyte distribution width (RBC) [Ratio] 13.5 % Normal 11.5-15.0 [facility] Comment on above: Order Comment: Speci men Type: BLOOD SPECIMENOrdering Facility: [facility] Address: [address] [place] [address] Performed By: #### 5 7021-8 ####[facility] LABIA [id number] [place] [address] Hematocrit (Bld) [Volume fraction] 43.1 % Normal 36.0-46.0 [facility] Comment on above: Order Comment: Speci men Type: BLOOD SPECIMENOrdering Facility: [facility] Address: [address] [place] [address] Performed By: #### 5 7021-8 ####[facility] LABIA [id number] [place] [address] Hemoglobin (Bld) [Mass/Vol] 14.2 g/dL Normal 11.5-15.5 [facility] Comment on above: Order Comment: Speci men Type: BLOOD SPECIMENOrdering Facility: [facility] Address: [address] [place] [address] Performed By: #### 5 7021-8 ####[facility] LABIA [id number] [place] [address] Immature granulocytes (Bld) [#/Vol] 0.20 10*3/uL High <0.10 [facility] Comment on above: Order Comment: Speci men Type: BLOOD SPECIMENOrdering Facility: [facility] Address: [address] [place] [address] Performed By: #### 5 7021-8 ####[facility] LABIA [id number] [place] [address] Immature granulocytes/100 WBC (Bld) 1.1 % Normal [facility] Comment on above: Order Comment: Speci men Type: BLOOD SPECIMENOrdering Facility: [facility] Address: [address] [address] Performed By: #### 5 7021-8 ####[facility] LABCLIA [id number] [place] [address] Lymphocytes (Bld) [#/Vol] 2.21 10*3/uL Normal 1.00-4.00 [facility] Comment on above: Order Comment: Speci men Type: BLOOD SPECIMENOrdering Facility: [facility] Address: [address] [address] Performed By: #### 5 7021-8 ####[facility] LABCLIA [id number] [place] [address] Lymphocytes/100 WBC (Bld) 12.5 % Normal [facility] Comment on above: Order Comment: Speci men Type: BLOOD SPECIMENOrdering Facility: [facility] Address: [address] [place] [address] Performed By: #### 5 7021-8 ####[facility] LABCLIA [id number] [place] [address] MCH (RBC) [Entitic mass] 29.7 pg Normal 26.0-34.0 [facility] Comment on above: Order Comment: Speci men Type: BLOOD SPECIMENOrdering Facility: [facility] Address: [address] [place] [address] Performed By: #### 5 7021-8 ####[facility] LABCLIA [id number] [place] [address] MCHC (RBC) [Mass/Vol] 32.9 g/dL Normal 30.5-36.0 [facility] Comment on above: Order Comment: Speci men Type: BLOOD SPECIMENOrdering Facility: [facility] Address: [address] [place] [address] Performed By: #### 5 7021-8 ####[facility] LABCLIA [id number] [place] [address] MCV (RBC) [Entitic vol] 90.2 fL Normal 80.0-100.0 [facility] Comment on above: Order Comment: Speci men Type: BLOOD SPECIMENOrdering Facility: [facility] Address: [address] [place] [address] Performed By: #### 5 7021-8 ####[facility] LABCLIA [id number] [place] [address] Monocytes (Bld) [#/Vol] 1.36 10*3/uL High <0.87 [facility] Comment on above: Order Comment: Speci men Type: BLOOD SPECIMENOrdering Facility: [facility] Address: [address] [place] [address] Performed By: #### 5 7021-8 ####[facility] LABCLIA [id number] [place] [address] Monocytes/100 WBC (Bld) 7.7 % Normal [facility] Comment on above: Order Comment: Speci men Type: BLOOD SPECIMENOrdering Facility: [facility] [place] Address: [address] [place] [address] Performed By: #### 5 7021-8 ####[facility] LABCLIA [id number] [place] [address] Neutrophils (Bld) [#/Vol] 13.72 10*3/uL High 1.45-7.50 [facility] Comment on above: Order Comment: Speci men Type: BLOOD SPECIMENOrdering Facility: [facility] Address: [address] [place] [address] Performed By: #### 5 7021-8 ####[facility] LABCLIA [id number] [place] [address] Neutrophils/100 WBC (Bld) 77.6 % Normal [facility] Comment on above: Order Comment: Speci men Type: BLOOD SPECIMENOrdering Facility: [facility] Address: [address] [place] [address] Performed By: #### 5 7021-8 ####[facility] LABCLIA [id number] [place] [address] Nucleated RBC (Bld) [#/Vol] 10*3/uL Normal <0.01 [facility] Comment on above: Order Comment: Speci men Type: BLOOD SPECIMENOrdering Facility: [facility] Address: [address] [place] [address] Performed By: #### 5 7021-8 ####[facility] LABCLIA [id number] [place] [address] Nucleated RBC/100 WBC (Bld) [Ratio] 0.0 /100 WBC Normal [facility] Comment on above: Order Comment: Speci men Type: BLOOD SPECIMENOrdering Facility: [facility] Address: [address] [place] [address] Performed By: #### 5 7021-8 ####[facility] LABIA [id number] [place] [address] Platelet mean volume (Bld) [Entitic vol] 8.3 fL Low 9.0-12.7 [facility] Comment on above: Order Comment: Speci men Type: BLOOD SPECIMENOrdering Facility: [facility] Address: [address] [place] [address] Performed By: #### 5 7021-8 ####[facility] LABIA [id number] [place] [address] Platelets (Bld) [#/Vol] 431 10*3/uL High 150-400 [facility] Comment on above: Order Comment: Speci men Type: BLOOD SPECIMENOrdering Facility: [facility] Address: [address] [place] [address] Performed By: #### 5 7021-8 ####[facility] LABIA [id number] [place] [address] RBC (Bld) [#/Vol] 4.78 10*6/uL Normal 3.90-5.20 [facility] Comment on above: Order Comment: Speci men Type: BLOOD SPECIMENOrdering Facility: [facility] Address: [address] [place] [address] Performed By: #### 5 7021-8 ####[facility] LABCLIA [id number] [place] [address] WBC (Bld) [#/Vol] 17.69 10*3/uL High 3.70-11.00 [facility] Comment on above: Order Comment: Speci men Type: BLOOD SPECIMENOrdering Facility: [facility] Address: [address] [place] [address] Performed By: #### 5 7021-8 ####[facility] LABCLIA [id number] [place] [address] Comprehensive metabolic 2000 panelon 08-06-2022 Albumin [Mass/Vol] 4.0 g/dL Normal 3.9-4.9 [facility] Comment on above: Order Comment: Speci men Type: BLOOD SPECIMENOrdering Facility: [facility] Address: [address] [place] [address] Performed By: #### 2 4323-8 ####[facility] LABCLIA [id number] [place] [address] ALP [Catalytic activity/Vol] 68 U/L Normal 34-123 [facility] Comment on above: Order Comment: Speci men Type: BLOOD SPECIMENOrdering Facility: [facility] [place] Address: [address] [place] [address] Performed By: #### 2 4323-8 ####[facility] LABCLIA [id number] [place] [address] ALT [Catalytic activity/Vol] 16 U/L Normal 7-38 [facility] Comment on above: Order Comment: Speci men Type: BLOOD SPECIMENOrdering Facility: [facility] [place] Address: [address] [address] Performed By: #### 2 4323-8 ####[facility] LABCLIA [id number] [place] [address] Anion gap [Moles/Vol] 7 mmol/L Low 9-18 [facility] Comment on above: Order Comment: Speci men Type: BLOOD SPECIMENOrdering Facility: [facility] [place] Address: [address] [place] [address] Performed By: #### 2 4323-8 ####[facility] LABCLIA [id number] [place] [address] AST [Catalytic activity/Vol] 16 U/L Normal 13-35 [facility] Comment on above: Order Comment: Speci men Type: BLOOD SPECIMENOrdering Facility: [facility] [place] Address: [address] [place] [address] Performed By: #### 2 4323-8 ####[facility] LABCLIA [id number] [place] [address] Bilirubin [Mass/Vol] 0.4 mg/dL Normal 0.2-1.3 [facility] Comment on above: Order Comment: Speci men Type: BLOOD SPECIMENOrdering Facility: [facility] [place] Address: [address] [place] [address] Performed By: #### 2 4323-8 ####[facility] LABCLIA [id number] [place] [address] Calcium [Mass/Vol] 9.8 mg/dL Normal 8.5-10.2 [facility] Comment on above: Order Comment: Speci men Type: BLOOD SPECIMENOrdering Facility: [facility] [place] Address: [address] [place] [address] Performed By: #### 2 4323-8 ####[facility] LABCLIA [id number] [place] [address] Chloride [Moles/Vol] 102 mmol/L Normal 97-105 [facility] Comment on above: Order Comment: Speci men Type: BLOOD SPECIMENOrdering Facility: [facility] [place] Address: [address] [place] [address] Performed By: #### 2 4323-8 ####[facility] LABCLIA [id number] [place] [address] CO2 [Moles/Vol] 28 mmol/L Normal 22-30 [facility] Comment on above: Order Comment: Speci men Type: BLOOD SPECIMENOrdering Facility: [facility] [place] Address: [address] [place] [address] Performed By: #### 2 4323-8 ####[facility] LABCLIA [id number] [place] [address] Creatinine [Mass/Vol] 0.66 mg/dL Normal 0.58-0.96 [facility] Comment on above: Order Comment: Speci men Type: BLOOD SPECIMENOrdering Facility: [facility] [place] Address: [address] [place] [address] Performed By: #### 2 4323-8 ####[facility] LABCLIA [id number] [place] [address] ESTIMATED GLOMERULAR FILTRATION RATE 97 mL/min/1.73m??? Normal >=60 [facility] Comment on above: Order Comment: Speci men Type: BLOOD SPECIMENOrdering Facility: [facility] [place] Address: [address] [place] [address] Result Comment: Carmen mated Glomerular Filtration Rate [...] actual GFR. Performed By: #### 2 4323-8 ####[facility] LABCLIA [id number] [place] [address] Glucose [Mass/Vol] 118 mg/dL High 74-99 [facility] Comment on above: Order Comment: Speci men Type: BLOOD SPECIMENOrdering Facility: [facility] [place] Address: [address] [place] [address] Result Comment: The [place] Diabetes Association (ADA) provides guidance for cutoff [...] Standards of Medical Care in Diabetes 2016, [place] [employer]. Diabetes Care. 2016.39(Suppl 1). Performed By: #### 2 4323-8 ####[facility] LABCLIA [id number] [place] [address] Potassium [Moles/Vol] 4.3 mmol/L Normal 3.7-5.1 [facility] Comment on above: Order Comment: Speci men Type: BLOOD SPECIMENOrdering Facility: [facility] [place] Address: [address] [place] [address] Performed By: #### 2 4323-8 ####[facility] LABCLIA [id number] [place] [address] Protein [Mass/Vol] 6.6 g/dL Normal 6.3-8.0 [facility] Comment on above: Order Comment: Speci men Type: BLOOD SPECIMENOrdering Facility: [facility] [place] Address: [address] [place] [address] Performed By: #### 2 4323-8 ####[facility] LABCLIA [id number] [place] [address] Sodium [Moles/Vol] 137 mmol/L Normal 136-144 [facility] Comment on above: Order Comment: Speci men Type: BLOOD SPECIMENOrdering Facility: [facility] [place] Address: [address] [place] [address] Performed By: #### 2 4323-8 ####[facility] LABCLIA [id number] [place] [address] Urea nitrogen [Mass/Vol] 16 mg/dL Normal 7-21 [facility] Comment on above: Order Comment: Speci men Type: BLOOD SPECIMENOrdering Facility: [facility] [place] Address: [address] [place] [address] Performed By: #### 2 4323-8 ####[facility] LABCLIA [id number] [place] [address] ESR Westergren method (Bld) [Velocity]on 08-06-2022 ESR (Bld) [Velocity] 18 mm/h Normal 0-20 [facility] Comment on above: Order Comment: Speci men Type: BLOOD SPECIMENOrdering Facility: [facility] [place] Address: [address] [place] [address] Performed By: #### 4 537-7 ####[facility] LABIA [id number] [place] [address] [place] HBV core Ab Ser Qlon 023 HBV core Ab Ql (S) Negative Normal Negative [facility] Comment on above: Order Comment: Speci men Type: BLOOD SPECIMENOrdering Facility: [facility] [place] Address: [address] [place] [address] Result Comment: No e vidence of current or past infection with Hepatitis B virus. Should recent infection be suspected, repeat testing may be considered 3-4 weeks after this draw. Performed By: #### 1 6933-4, 5195-3, 17250-5 ####[facility] LABCLIA [id number] [place] [address] [place] HBV surface Ab Ql (S)on 07-19 HBV surface Ab Qn (S) <8.00 Low >=12.00 [facility] Comment on above: Order Comment: Speci men Type: BLOOD SPECIMENOrdering Facility: [facility] [place] Address: [address] [place] [address] Performed By: #### 1 6933-4, 5195-3, 25413-4 ####[facility] LABCLIA [id number] [address] [place] HBV surface Ab Ser Qlon 07-19 HBV surface Ab Ql (S) Negative Abnormal Positive [facility] Comment on above: Order Comment: Speci men Type: BLOOD SPECIMENOrdering Facility: [facility] [place] Address: [address] [place] [address] Result Comment: No e vidence of antibodies to Hepatitis B surface antigen. Performed By: #### 1 6933-4, 5-3, 14801-7 ####[facility] LABCLIA [id number] [address] [place] HBV surface Ag Ser Qlon 07-19 HBV surface Ag Ql (S) Negative Normal Negative [facility] Comment on above: Order Comment: Speci men Type: BLOOD SPECIMENOrdering Facility: [facility] [place] Address: [address] [place] [address] Performed By: #### 1 6933-4, 5-3, 67945-0 ####[facility] LABCLIA [id number] [address] HCV Ab Ser Qlon 08-06-2022 HCV Ab Ql (S) Negative Normal Negative [facility] Comment on above: Order Comment: Speci men Type: BLOOD SPECIMENOrdering Facility: [facility] [place] Address: [address] [place] [address] Result Comment: The result suggests no evidence of active infection with Hepatitis C virus. Should recent infection be suspected, repeat testing may be considered 4-6 weeks after this draw. Performed By: #### 1 6128-1 ####[facility] LABCLIA [id number] [address] [address] [place] Workers' Comp Officeon 07-26 Workers' Comp Office [id number]#1. 00CD:127 [facility] CNOVon 06-27-2022 CNOV Office Visit (DERMMN ) SHAHLAELHAM MyersSHELLY ([id number]) 1955 F Date Time Provider Department 06/27/22 10:45 AM YANNA MILLER DERMMN During your visit today, we recorded the following information about you: Yanna Miller MD 06/27/2022 9:37 PM Signed New patient Consultation requested by Dr. Liz for an opinion regarding psoriasis. My final recommendations will be communicated back to the requesting physician by way of shared Medical record or letter to requesting physician via [place] mail. CC: rash HPI: Shelly Shahlanita 66 year old female here for rash. [...] Sodium 100 mg tab Take by mouth. HYDROcodone-acetaminop hen (NORCO) 5-325 mg per tablet Take 1 [...] Lymph 1.00 - 4.00 k/uL 4.49 (H) [place]% % 7.0 Abs [place] <0.87 k/uL 1.50 (H) Eosin% % 0.0 [...] skin folds (more content not included)... Normal [facility] Consultation Noteon 06-28-19 Consultation Note Chief complaint: [...] after the procedure for repeat evaluation. 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 She said please send Rx to [facility] pharmacy in [place], [place] on [facility]. She also notes that her hands are stiff and swollen again. She stopped prednisone Friday (she is out of pills) and the stiffness and swelling came back this morning. Also - she made an appointment to see Derm at [facility]. Her appointment is tomorrow 06/27. John Liz [...] Reason for Visit: Results [95] Primary Visit Diagnosis:Inflammatory arthritis [M19.90] Other Visit Diagnosis:Medication monitoring encounter [Z51.81] Order(s):methotrexate 2.5 mg tabletTake 4 tablets by mouth one time a week.Disp: 20 tabletRfl: 2 folic acid 1 mg tabletTake 1 tablet by mouth once daily.Disp: 90 tabletRfl: 3 predniSONE (DELTASONE) 10 mg tabletTake 1 tablet by mouth once daily.Disp: 30 tabletRfl: 2 CBC + DIFF [SQCBCDIF] Order #: [id number] FUTURE COMP METABOLIC PANEL [SQCMP] Order #: [id number] FUTURE SED RATE WESTERGREN [SQWSR] Order #: [id number] FUTURE HEP REMOTE PANEL BL [SQHREMOP] Order #: [id number] FUTURE Prescriptions as of 06/26/2022 - methotrexate [...] 100 mg tab Take by mouth. - HYDROcodone-acetaminop hen (NORCO) 5-325 mg per tablet Take 1 [...] Number: 76 (more content not included)... Normal [facility] Consent for Treatmenton 06-17 Consent for Treatment [id number]#1. 00CD:127 Normal [facility] Office/Clinic Note-Physician on 06-26-2022 Office/Clinic Note-Physician [id number]#1.0 0CD:127 Normal [facility] Patient Correspondenceon Patient Correspondence [id number]#1.0 0CD:127 Normal [facility] Patient Correspondence [id number]#1.0 0CD:127 Normal [facility] Patient History Officeon Patient History Office [id number]#1.0 0CD:127 Normal [facility] ESR Westergren method (Bld) [Velocity]on 06-25-2022 ESR (Bld) [Velocity] 21 mm/h High 0 - 20 mm/hr [facility] CBC W Auto Differential pane l (Bld)on 06-24-2022 Basophils (Bld) [#/Vol] 0.21 10*3/uL High <0.11 [facility] Comment on above: Order Comment: Speci men Type: BLOOD SPECIMENOrdering Facility: [facility] [place] Address: [address] [place] [address] Performed By: #### 5 7021-8, 4537-7 ####[facility] LABIA [id number] [address] STATES OF [facility] Basophils/100 WBC (Bld) 1.0 % Normal [facility] Comment on above: Order Comment: Speci men Type: BLOOD SPECIMENOrdering Facility: [facility] [place] Address: [address] [place] [address] Performed By: #### 5 7021-8, 4537-7 ####[facility] LABCLIA [id number] [place] [address] [place] Differential cell count method Nom (Bld) Manual Normal [facility] Comment on above: Order Comment: Speci men Type: BLOOD SPECIMENOrdering Facility: [facility] [place] Address: [address] [place] [address] Performed By: #### 5 7021-8, 4537-7 ####[facility] LABCLIA [id number] [address] [place] Eosinophils (Bld) [#/Vol] 0.00 10*3/uL Normal <0.46 [facility] Comment on above: Order Comment: Speci men Type: BLOOD SPECIMENOrdering Facility: [facility] [place] Address: [address] [place], [place] [address] Performed By: #### 5 7021-8, 4536-7 ####[facility] LABCLIA [id number] [place] [address] [place] Eosinophils/100 WBC (Bld) 0.0 % Normal [facility] Comment on above: Order Comment: Speci men Type: BLOOD SPECIMENOrdering Facility: [facility] [place] Address: [address] [place], [place] [address] Performed By: #### 5 7021-8, 4536-7 ####[facility] LABCLIA [id number] [place] [address] [place] Erythrocyte distribution width (RBC) [Ratio] 12.4 % Normal 11.5-15.0 [facility] Comment on above: Order Comment: Speci men Type: BLOOD SPECIMENOrdering Facility: [facility] [place] Address: [address] [place], [place] [address] Performed By: #### 5 7021-8, 7 ####[facility] LABIA [id number] [address] [place] Hematocrit (Bld) [Volume fraction] 42.2 % Normal 36.0-46.0 [facility] Comment on above: Order Comment: Speci men Type: BLOOD SPECIMENOrdering Facility: [facility] [place] Address: [address] [place], [place] [address] Performed By: #### 5 7021-8, 7 ####[facility] LABCLIA [id number] [place] [address] [place] Hemoglobin (Bld) [Mass/Vol] 14.5 g/dL Normal 11.5-15.5 [facility] Comment on above: Order Comment: Speci men Type: BLOOD SPECIMENOrdering Facility: [facility] [place] Address: [address] [place] [address] Performed By: #### 5 7021-8, 4536-7 ####[facility] LABCLIA [id number] [place] [address] [place] Lymphocytes (Bld) [#/Vol] 4.49 10*3/uL High 1.00-4.00 [facility] Comment on above: Order Comment: Speci men Type: BLOOD SPECIMENOrdering Facility: [facility] [place] Address: [address] [place] [address] Performed By: #### 5 7021-8, 7 ####[facility] LABCLIA [id number] [address] [place] Lymphocytes/100 WBC (Bld) 21.0 % Normal [facility] Comment on above: Order Comment: Speci men Type: BLOOD SPECIMENOrdering Facility: [facility] [place] Address: [address] [place] [address] Performed By: #### 5 7021-8, 7 ####[facility] LABCLIA [id number] [place] [address] [place] MCH (RBC) [Entitic mass] 30.9 pg Normal 26.0-34.0 [facility] Comment on above: Order Comment: Speci men Type: BLOOD SPECIMENOrdering Facility: [facility] [place] Address: [address] [place], [place] [address] Performed By: #### 5 7021-8, 4536-7 ####[facility] LABCLIA [id number] [address] [place] MCHC (RBC) [Mass/Vol] 34.4 g/dL Normal 30.5-36.0 [facility] Comment on above: Order Comment: Speci men Type: BLOOD SPECIMENOrdering Facility: [facility] [place] Address: [address] [place] [address] Performed By: #### 5 7021-8, 7 ####[facility] LABCLIA [id number] [place] [address] [place] MCV (RBC) [Entitic vol] 90.0 fL Normal 80.0-100.0 [facility] Comment on above: Order Comment: Speci men Type: BLOOD SPECIMENOrdering Facility: [facility] [place] Address: [address] Performed By: #### 5 7021-8, 7 ####[facility] LABCLIA [id number] [place] [address] [place] Monocytes (Bld) [#/Vol] 1.50 10*3/uL High <0.87 [facility] Comment on above: Order Comment: Speci men Type: BLOOD SPECIMENOrdering Facility: [facility] [place] Address: [address] [place], [place] [address] Performed By: #### 5 7021-8, 4536-08 ####[facility] LABCLIA [id number] [address] [place] Monocytes/100 WBC (Bld) 7.0 % Normal [facility] Comment on above: Order Comment: Speci men Type: BLOOD SPECIMENOrdering Facility: [facility] Address: [address] [place] [address] Performed By: #### 5 7021-8, 4536-08 ####[facility] LABCLIA [id number] [place] [address] [place] MYELO% 1.0 % Normal [facility] Comment on above: Order Comment: Speci men Type: BLOOD SPECIMENOrdering Facility: [facility] [place] Address: [address] Performed By: #### 5 7021-8, 4536-08 ####[facility] LABCLIA [id number] [place] [address] [place] Neutrophils (Bld) [#/Vol] 14.95 10*3/uL High 1.45-7.50 [facility] Comment on above: Order Comment: Speci men Type: BLOOD SPECIMENOrdering Facility: [facility] [place] Address: [address] [place] [address] Performed By: #### 5 7021-8, 7-7 ####[facility] LABCLIA [id number] [place] [address] [place] Neutrophils/100 WBC (Bld) 70.0 % Normal [facility] Comment on above: Order Comment: Speci men Type: BLOOD SPECIMENOrdering Facility: [facility] [place] Address: [address] [place] [address] Performed By: #### 5 7021-8, 4536-7 ####[facility] LABCLIA [id number] [place] [address] [place] Nucleated RBC (Bld) [#/Vol] 10*3/uL Normal <0.01 [facility] Comment on above: Order Comment: Speci men Type: BLOOD SPECIMENOrdering Facility: [facility] [place] Address: [address] [place], [place] [address] Performed By: #### 5 7021-8, 7-7 ####[facility] LABIA [id number] [place] [address] [place] Nucleated RBC/100 WBC (Bld) [Ratio] 0.0 /100 WBC Normal [facility] Comment on above: Order Comment: Speci men Type: BLOOD SPECIMENOrdering Facility: [facility] [place] Address: [address] [place], [place] [address] Performed By: #### 5 7021-8, 7-7 ####[facility] LABIA [id number] [place] [address] [place] Platelet mean volume (Bld) [Entitic vol] 8.6 fL Low 9.0-12.7 [facility] Comment on above: Order Comment: Speci men Type: BLOOD SPECIMENOrdering Facility: [facility] [place] Address: [address] [place], [place] [address] Performed By: #### 5 7021-8, 4536-7 ####[facility] LABCLIA [id number] [place] [address] [place] Platelets (Bld) [#/Vol] 465 10*3/uL High 150-400 [facility] Comment on above: Order Comment: Speci men Type: BLOOD SPECIMENOrdering Facility: [facility] [place] Address: [address] [place] [address] Performed By: #### 5 7021-8, 4536-7 ####[facility] LABCLIA [id number] [place] [address] [place] Platelets Estimate (Bld) [#/Vol] Increased Normal [facility] Comment on above: Order Comment: Speci men Type: BLOOD SPECIMENOrdering Facility: [facility] Address: [address] [place], [place] [address] Performed By: #### 5 7021-8, 7 ####[facility] LABCLIA [id number] [place] [address] [place] Polychromasia LM Ql (Bld) Slight Normal [facility] Comment on above: Order Comment: Speci men Type: BLOOD SPECIMENOrdering Facility: [facility] Address: [address] [place], [place] [address] Performed By: #### 5 7021-8, 4536-7 ####[facility] LABCLIA [id number] [place] [address] [place] RBC (Bld) [#/Vol] 4.69 10*6/uL Normal 3.90-5.20 [facility] Comment on above: Order Comment: Speci men Type: BLOOD SPECIMENOrdering Facility: [facility] Address: [address] [place] [address] Performed By: #### 5 7021-8, 4537-7 ####[facility] LABCLIA [id number] [place] [address] [place] RED CELL MORPH Reviewed: unremarkable Normal [facility] Comment on above: Order Comment: Speci men Type: BLOOD SPECIMENOrdering Facility: [facility] Address: [address] [place] [address] Performed By: #### 5 7021-8, 7-7 ####[facility] LABIA [id number] [place] [address] [place] WBC (Bld) [#/Vol] 21.36 10*3/uL High 3.70-11.00 [facility] Comment on above: Order Comment: Speci men Type: BLOOD SPECIMENOrdering Facility: [facility] [place] Address: [address] [place] [address] Performed By: #### 5 7021-8, 7-7 ####[facility] LABCLIA [id number] [place] [address] [place] WBC Left Shift Ql (Bld) Present Normal [facility] Comment on above: Order Comment: Speci men Type: BLOOD SPECIMENOrdering Facility: [facility] [place] Address: [address] [place], [place] [address] Performed By: #### 5 7021-8, 4537-7 ####[facility] LABCLIA [id number] [place] [address] [place] CK SerPl-cCncon 06-24-2022 CK [Catalytic activity/Vol] 37 U/L Low 42-196 [facility] Comment on above: Order Comment: Speci men Type: BLOOD SPECIMENOrdering Facility: [facility] [place] Address: [address] [place], [place] [address] Performed By: #### 2 157-6, 18509-0, 58610-6, 3084-1 ####[facility] LABGOGO [id number] [address] [place] CNOVon 06-24-2022 CNOV Office Visit (RHEUIN ) SHELLY WILSON ([id number]) 1955 F Date Time Provider Department 06/24/22 [...] wrist. She had XR showing osteoarthritis. Dr Lala her PCP from [facility] in [place] prescribed prednisone 40 mg/d x 5. Reduced [...] Sodium 100 mg tab Take by mouth. HYDROcodone-acetaminop hen (NORCO) 5-325 mg per tablet Take 1 [...] Rv 3 (more content not included)... Normal [facility] CRP SerPl-mCncon 06-24-2022 CRP [Mass/Vol] 0.5 mg/dL Normal <0.9 [facility] Comment on above: Order Comment: Speci men Type: BLOOD SPECIMENOrdering Facility: [facility] [place] Address: [address] [place] [address] Performed By: #### 1 988-5, 2885-2 ####[facility] LABCLIA [id number] [place] [address] [place] Comprehensive metabolic 2000 panelon 06-24-2022 Albumin [Mass/Vol] 4.0 g/dL Normal 3.9-4.9 [facility] Comment on above: Order Comment: Speci men Type: BLOOD SPECIMENOrdering Facility: [facility] [place] Address: [address] [place] [address] Performed By: #### 2 157-6, 85061-9, 28475-4, 5642- ####[facility] LABCLIA [id number] [place] [address] [place] ALP [Catalytic activity/Vol] 75 U/L Normal 34-123 [facility] Comment on above: Order Comment: Speci men Type: BLOOD SPECIMENOrdering Facility: [facility] [place] Address: [address] [address] Performed By: #### 2 157-6, 43394-7, 84094-9, 3083- ####[facility] LABCLIA [id number] [place] [address] [place] ALT [Catalytic activity/Vol] 21 U/L Normal 7-38 [facility] Comment on above: Order Comment: Speci men Type: BLOOD SPECIMENOrdering Facility: [facility] [place] Address: [address] [place] [address] Performed By: #### 2 157-6, 81369-6, 27754-9, 3083- ####[facility] LABIA [id number] [place] [address] [place] Anion gap [Moles/Vol] 13 mmol/L Normal 9-18 [facility] Comment on above: Order Comment: Speci men Type: BLOOD SPECIMENOrdering Facility: [facility] [place] Address: [address] [address] Performed By: #### 2 157-6, 89170-8, 71271-4, 308- ####[facility] LABCLIA [id number] [place] [address] [place] AST [Catalytic activity/Vol] 15 U/L Normal 13-35 [facility] Comment on above: Order Comment: Speci men Type: BLOOD SPECIMENOrdering Facility: [facility] [place] Address: [address] [place] [address] Performed By: #### 2 157-6, 64786-0, 91393-5, 3084-1 ####[facility] LABCLIA [id number] [place] [id number] [place] Bilirubin [Mass/Vol] 0.3 mg/dL Normal 0.2-1.3 [facility] Comment on above: Order Comment: Speci men Type: BLOOD SPECIMENOrdering Facility: [facility] [place] Address: [address] [place] [address] Performed By: #### 2 157-6, 58435-5, 06299-2, 3084-1 ####[facility] LABCLIA [id number] [place] [address] [place] Calcium [Mass/Vol] 9.8 mg/dL Normal 8.5-10.2 [facility] Comment on above: Order Comment: Speci men Type: BLOOD SPECIMENOrdering Facility: [facility] [place] Address: [address] [place] [address] Performed By: #### 2 157-6, 71699-2, 13743-4, 3084-1 ####[facility] LABIA [id number] [place] [address] [place] Chloride [Moles/Vol] 100 mmol/L Normal 97-105 [facility] Comment on above: Order Comment: Speci men Type: BLOOD SPECIMENOrdering Facility: [facility] [place] Address: [address] [place], [place] [address] Performed By: #### 2 157-6, 27743-1, 22694-8, 3084-1 ####[facility] LABCLIA [id number] [place] [address] [place] CO2 [Moles/Vol] 25 mmol/L Normal 22-30 [facility] Comment on above: Order Comment: Speci men Type: BLOOD SPECIMENOrdering Facility: [facility] [place] Address: [address] [place] [address] Performed By: #### 2 157-6, 78831-5, 75783-8, 3084-1 ####[facility] LABCLIA [id number] [address] [place] Creatinine [Mass/Vol] 0.71 mg/dL Normal 0.58-0.96 [facility] Comment on above: Order Comment: Speci men Type: BLOOD SPECIMENOrdering Facility: [facility] [place] Address: [address] [address] Performed By: #### 2 157-6, 96421-7, 66061-0, 308- ####[facility] LABIA [id number] [place] [address] [place] ESTIMATED GLOMERULAR FILTRATION RATE 94 mL/min/1.73m??? Normal >=60 [facility] Comment on above: Order Comment: Speci men Type: BLOOD SPECIMENOrdering Facility: [facility] [place] Address: [address] [place] [address] Result Comment: Carmen mated Glomerular Filtration Rate [...] reflect actual GFR. Performed By: #### 2 157-6, 83634-1, 53772-9, 3084-1 ####[facility] LABIA [id number] [place] [id number] [place] Glucose [Mass/Vol] 62 mg/dL Low 74-99 [facility] Comment on above: Order Comment: Speci men Type: BLOOD SPECIMENOrdering Facility: [facility] [place] Address: [address] [address] Result Comment: The [place] Diabetes Association (ADA) provides guidance for cutoff [...] Standards of Medical Care in Diabetes 2016, [place] [employer]. Diabetes Care. 2016.39(Suppl 1). Performed By: #### 2 157-6, 15424-1, 55568-6, 3084-1 ####[facility] LABCLIA [id number] [place] [address] [place] Potassium [Moles/Vol] 4.2 mmol/L Normal 3.7-5.1 [facility] Comment on above: Order Comment: Speci men Type: BLOOD SPECIMENOrdering Facility: [facility] [place] Address: [address] [place] [address] Performed By: #### 2 157-6, 44337-8, 53572-6, 308-1 ####[facility] LABIA [id number] [place] [address] [place] Protein [Mass/Vol] 6.8 g/dL Normal 6.3-8.0 [facility] Comment on above: Order Comment: Roberti yaniv Type: BLOOD SPECIMENOrdering Facility: [facility] [place] Address: [address] [place] [address] Performed By: #### 2 157-6, 53238-3, 30278-7, 308-1 ####[facility] LABIA [id number] [place] [address] [place] Sodium [Moles/Vol] 138 mmol/L Normal 136-144 [facility] Comment on above: Order Comment: Speci men Type: BLOOD SPECIMENOrdering Facility: [facility] [place] Address: [address] [place] [address] Performed By: #### 2 157-6, 39309-0, 14429-5, 3084-1 ####[facility] LABCLIA [id number] [place] [address] [place] Urea nitrogen [Mass/Vol] 17 mg/dL Normal 7-21 [facility] Comment on above: Order Comment: Speci men Type: BLOOD SPECIMENOrdering Facility: [facility] [place] Address: [address] [place] [address] Performed By: #### 2 157-6, 74924-8, 82791-7, 3084-1 ####[facility] [id number] [place] [address] [place] Cyclic citrullinated peptide IgG Qnon 06-24-2022 CCP ANTIBODY IGG QUALITATIVE Positive Abnormal Negative [facility] Comment on above: Order Comment: Speci men Type: BLOOD SPECIMENOrdering Facility: [facility] [place] Address: [address] [place] [address] Performed By: #### 4 7383-5, 75691-3 ####[facility] [id number] [place] [address] [place] ESR Westergren method (Bld) [Velocity]on 06-24-2022 ESR (Bld) [Velocity] 21 mm/h High 0-20 [facility] Comment on above: Order Comment: Speci men Type: BLOOD SPECIMENOrdering Facility: [facility] [place] Address: [address] [place] [address] Performed By: #### 5 7021-8, 4537-7 ####[facility] [id number] [place] [address] [place] No Panel Informationon 06-24 [facility] Nuclear Ab IA Ql (S)on 06-24 BABATUNDE BY EIA, QUAL Negative Normal Negative [facility] Comment on above: Order Comment: Speci men Type: BLOOD SPECIMENOrdering Facility: [facility] [place] Address: [address] [place] [address] Result Comment: The qualitative antinuclear antibody screen test performed using enzyme immunoassay including the following antigens: dsDNA, histones, SS-A, SS-B, Sm, Sm/[employer]ENDER [employer]ER, Scl-70, Elham-1, and centromeric antigens. Performed By: #### 4 7383-5, 48295-9 ####[facility] LABIA [id number] [address] [place] PROTEIN ELECTROPHORESIS SERU M (P)on 06-24-2022 Albumin [Mass/Vol] 3.51 g/dL Normal 3.43-5.41 [facility] Comment on above: Order Comment: Speci men Type: BLOOD SPECIMENOrdering Facility: [facility] [place] Address: [address] [place] [address] Performed By: #### L [id number] ####[facility] [id number] [address] [place] Alpha 1 globulin Elph [Mass/Vol] 0.36 g/dL Normal 0.18-0.43 [facility] Comment on above: Order Comment: Speci men Type: BLOOD SPECIMENOrdering Facility: [facility] [place] Address: [address] [place] [address] Performed By: #### L [id number] ####[facility] [id number] [address] [place] Alpha 2 globulin Elph [Mass/Vol] 1.04 g/dL High 0.42-0.98 [facility] Comment on above: Order Comment: Speci men Type: BLOOD SPECIMENOrdering Facility: [facility] [place] Address: [address] [place] [address] Performed By: #### L [id number] ####[facility] LABIA [id number] [place] [address] [place] Beta globulin Elph [Mass/Vol] 0.88 g/dL Normal 0.61-1.17 [facility] Comment on above: Order Comment: Speci men Type: BLOOD SPECIMENOrdering Facility: [facility] [place] Address: [address] [address] Performed By: #### L [id number] ####[facility] LABIA [id number] [place] [address] [place] Gamma globulin Elph [Mass/Vol] 0.71 g/dL Normal 0.53-1.51 [facility] Comment on above: Order Comment: Speci men Type: BLOOD SPECIMENOrdering Facility: [facility] [place] Address: [address] [place] [address] Performed By: #### L [id number] ####[facility] LABIA [id number] [address] [place] M-PROTEIN LOCATION Normal [facility] Comment on above: Order Comment: Speci men Type: BLOOD SPECIMENOrdering Facility: [facility] [place] Address: [address] [place] [address] Result Comment: Not Applicable. Performed By: #### L [id number] ####[facility] LABIA [id number] [place] [address] [place] Protein Fractions [Interp] No definitive M protein is identified on protein electrophoresis. Normal No definitive M protein is identified on protein electrophoresi s. [facility] Comment on above: Order Comment: Speci men Type: BLOOD SPECIMENOrdering Facility: [facility] [place] Address: [address] [place] [address] Performed By: #### L [id number] ####[facility] LABIA [id number] [address] [place] Protein.monoclonal Elph [Mass/Vol] 0.00 g/dL Normal <=0.00 [facility] Comment on above: Order Comment: Speci men Type: BLOOD SPECIMENOrdering Facility: [facility] [place] Address: [address] [place] [address] Performed By: #### L [id number] ####[facility] LABCLIA [id number] [place] [address] [place] SPE STAFF REVIEW Reviewed by Dr. Jacob Benitez MD [facility] Comment on above: Order Comment: Speci men Type: BLOOD SPECIMENOrdering Facility: [facility] [place] Address: [address] [place] [address] Performed By: #### L [id number] ####[facility] LABCLIA [id number] [place] [address] [place] Prot SerPl-mCncon 06-24-2022 Protein [Mass/Vol] 6.5 g/dL Normal 6.3-8.0 [facility] Comment on above: Order Comment: Speci men Type: BLOOD SPECIMENOrdering Facility: [facility] [place] Address: [address] [place] [address] Performed By: #### 1 988-5, 2885-2 ####[facility] LABCLIA [id number] [address] [place] Rheumatoid fact SerPl-aCncon 06-24-2022 Rheumatoid factor Qn [IU]/mL Normal <16 [facility] Comment on above: Order Comment: Speci men Type: BLOOD SPECIMENOrdering Facility: [facility] [place] Address: [address] [place] [address] Performed By: #### 2 157-6, 14925-7, 15869-5, 3084-1 ####[facility] LABCLIA [id number] [place] [address] [place] Urate SerPl-mCncon Urate [Mass/Vol] 4.4 mg/dL Normal 2.5-6.6 [facility] Comment on above: Order Comment: Speci men Type: BLOOD SPECIMENOrdering Facility: [facility] [place] Address: [address] [place] [address] Performed By: #### 2 157-6, 07825-7, 90010-6, 3084-1 ####[facility] LABCLIA [id number] [place] [id number] [place] XR CHEST 2V FRONTAL/LATon XR CHEST 2V [...] Exaggerated thoracic kyphosis with degenerative changes. IMPRESSION: Manager Decision Support: RENA Transcribe Date/Time: Jun 27 2022 2:09P Dictated by : LEE HIGGINS MD This examination was interpreted and the report reviewed and electronically signed by: LEE IHGGINS MD on Jun 27 2022 2:10PM EST [id number] Normal [facility] XR FOOT 3V AP/LAT/OBL BILon 06-24-2022 XR [...] soft tissue swelling. No other significant abnormality. - IMPRESSION: Degenerative arthritis. No evidence of erosions. Manager Decision Support: RENA Transcribe Date/Time: Jun 24 2022 3:36P Dictated by : REA MILLER MD This examination was interpreted and the report reviewed and electronically signed by: REA MILLER MD on Jun 24 2022 3:37PM EST [id number] Normal [facility] XR HAND/WRIST SURVEY 1V PA B ILon [...] soft tissue swelling. No other significant abnormality. - IMPRESSION: Degenerative arthritis. No evidence of erosions. Manager Decision Support: [facility] Transcribe Date/Time: Jun 24 2022 3:34P Dictated by : REA MILLER MD This examination was interpreted and the report reviewed and electronically signed by: REA MILLER MD on Jun 24 2022 3:36PM EST [id number] Normal [facility] cCP IgG SerPl-aCncon 023 Cyclic citrullinated peptide IgG Qn 78 Units High <20 [facility] Comment on above: Order Comment: Speci men Type: BLOOD SPECIMENOrdering Facility: [facility] [place] Address: [address] [place] [id number] Performed By: #### 4 7383-5, 71598-0 ####[facility] LABCLIA [id number] [place] [id number] [place] US VENOUS DOPPLER BENJAMIN Leonard 06-19-2022 [...] by: WADE YU Date: 2022-06-19 20:02 Normal [facility] Coding Summary.on 06-05-2022 Coding Summary. CD:[id number] Ww +PGhlYWQ+QY6OSVWxD83kp BQisG0xJ7GLSUzGYulxOUF MINlJObCgmqXbFW8izFGeL XJu IC8+AL0oYZYiJhmhyKBac3 N9aPL9X59zxg6fUNmeiPP5 DIMzPrVkncods4ibnNa2MA cuNmluOyBt GAViaV70LWI8iA07Na79eL IbsMZnb1kzsJt8MtOeCMPs KDT1xUotTRniw0GzPQAtR0 9hnVGyt8G6 HQDihNhmmYJhMzXqeYL6oP 9oGKocvhouf2tymxbiNak5 gx55qFTzo1H5zEL4D3Mnyp L1ZFWgbKZr DrmduTRFhH1xvqrpm5kqzb yyEeUeUQQuPAl3VXy3HQHb qTbsQuAoDM41TLM1MINoty IjN4TfUWRn nOskUhJ3f1Y2Rj5GK6LUFt crH0OZGQRBDLrbnTD+PC90 ft53F3QdKyvrNfp6KSPjDC J7kBT2zC8l USQxSPszf7Q3xKB4U6Sntu Vath6oe5oiIJTbWKgjM01v oROdy8F9KCSroRG6HELjhQ jpYqDeiI23 Oyc+SGFmuJoxx8VeLfhlw8 rrc5snzQv4KkkxZUGwcmVz vZgvNVR1q9DzTu9dNTWiiC H1aGI4aZ4s HsNwHlZ1GBrhI346RkRhsL JvRdnzG77uC6QjsXI+PHRy Vgw1XEYilFcePN0zG2AiEN RpbmctbGVm fRduOE9qQLWbygscHTZlwS 4vZJWvS8f3VnRoJtI0MYwk V9HrHISeyxhbDi03oM1gGj VdMeP3AEnr P5BpvrW9EIRbdPWeTBwmHX D2B55zu6R7IDLrVLZnLST2 oAL1iE4dgWfrpooecSOdrA sgdmVydGlj BQynPVvoC177WYBiwMqoAe NvZGluZyBEYXRlOiAgMDQv MTkvMjAyMzwvdGQ+PHRkIH U2yXytGXAg zNKpANtwFi0ygHkyjUadQU 2fJPJzbnrmTJKtdW6aIMZo xSQoaRqqHM8cJZTyjhyya4 38EtWcXTE4 WLPlcSMqT3JlbW6nOcJmJA WfJGYkI1XvcIAvDJlfI682 LQkmOwU3YBQvbsPaH6UzID FsaWduOiB0 j1X6Ke9Uw7WfcjubX7IqgI ZgTqEsEzydJDl5I1QqIrhw dHI+YT23CUIoMT37LSp9YN G9fOouACfe UZEyQ4MwtR1vAhWuZCJaVU RkOyc+PHRhYmxlIHdpZHRo WIhpRAPfEkVysMucOK2aXf 9yZGVyLWNv nCggdTJmMnTmj6afNNCsNB blCQ6bnAknN4OrnXK0MEEa d0u1Iq50F70kV8MmqAN+PG SkvND5aZM7 zI5wOhRuVtG6UAozS703Ec EgjJAvNzgqy0uqw1zeoVu0 FfR7PSJhinMiiWanZWK1o5 JkDw29O28a IHdpZHRoPSIxNSUiIHZhbG wqqk6isS8rJs8+PGNvbCB3 mLF0tD6bOqIzRsF1HJtpK3 49InRvcCIv Dyjny6njh0xolDy7XmPkDF NbnqUquOldUEB0e4NrVu34 N8KfsWnaq3YnXeb2wy28vD Ebn1T7oEX0 P5LnTQFdxwhpwCMzyBucRF 3zGXTdcsyoSPHggB5cGERz H6q9OqFbEzU4APccA1Ipwa A4QRScmZFy BEJuzJTTkG7szszhb7lllj aoSuUeETMwGIl7CRp5VNJw lKjvUiAnODN8UyB4KPE4qR CskO8awMlh ikldsN2bTnk+KRX5fDJfpQ WJOF8rBgbutMA+PHRkIHN0 uKmlYBiqBHYyrS1jECFzH9 x8EiFzOxM9 TQpvD8CyxuS3XBUlgLVsXH HauTKHsT6tkabal2zpwnnt LpRhDAQsCYv0RXq0MRFdzF duOiBsZWZ0 OhD1NHT9cARboF3fdIfhlh fgbX4qOfs+QmlydGggRGF0 TJx1E0CsFsk4CGDilJroGB 0ncGFkZGlu Jj1ugSeeiHskVI6cOYCxvf pvn632VtZyr2ukZARkxKFu BDvfHAR8Q56xz5V6TEYxGD StWXI2aGB5 tU8kvDdtlbxoqRVlpDajiu GjkQgpTHkzIRgtD465IAQd cQouKuFoLXz7V6KoXmf6ES BrbSllZH8i lLMaYUmmQm9acHaqpKfkCH 2lTJVjguldx663AfIax4wd PITkpPDgNWujDFH7G40zg3 G4QNOmGZAy SFI7jLI4hN9gvIngeswexL VmdDsgdmVydGljYWwtYWxp B097VYQrwJveJjWtjJm8Z2 WaEkp6PTMt vNarSO2gvVOdGYwbJj8whO svbNzqZX1pQFFxduirs391 XjMct6rzHJRsgZXgNWkwIR R9Y60lt8U8 EKAwQVRlSKI0hNS1cH1iqP lnbjogbGVmdDsgdmVydGlj YDkeIBriJ518XVUskTmgQq BhdGllbnQg YIrnXMf6P5LmCcdpgNA+PC 62NAImAX89dIFddQKed8mh gYf0WkQbWNNuBWG1sGccDM pwb7SrJDLe B98wcAKek6C2TPOqwRrovN GgYyXriGX1eS1yDDglvecp k6wgvwmsUppde6wsli52hD 81J30dZLmj ZHRoPSIzMCUiIHZhbGlnbj 5gpO5cFj9+KTHizZV2dVB0 nC1lTLIfSrZ5MErkM753Co RvcCIvPjxj x8auc0tmuAq6PcM5OROkmd PxtRwoRKW1l0EbDm75H81h IHdpZHRoPSIyMCUiIHZhbG ldfz4vvN3q Ii8+JTKqoNX1nZN8vX5nYj MpEkS1RQgyD222CdRtcKYw TqbbW57zT8PcfSF+PHRyPj u6ECYxcQpu HP0wfGGzRXjyPt9pKHM4Ax SnUsKeMKdhX4XnCJGwiuhf hrpmlZL2VJWuEICroE83Sg 9udDogMTBw hYDUtM9mttkhj8aygtwoCw IgWMWeYKy5RCb8GOYwoXot YnSmUYH3QkH7YOV1gTUloE 1hbGlnbjog yA1wD9KbEFScexkrQe56eD 5nJvZkNiT4JKzoWbq+Qkla L0GZSdnuNt2AEc8yCQfdbA Q+PHRkIHN0 rSiyACuzFTJixE3pOSKpH8 y5LtOaFxL9VNppU7XtHPLv psncTt41cW1wGnEsKfW9FA swU4TwfeU7 YXLbhZPbIAglCYQ6R17av8 G5TRTxGOIxZQI0oVG1yT1m bGlnbjogbGVmdDsgdmVydG ljYWwtYWxp C354GZVxwBrcQxQ5RaIzGs O3WDY0W5MqFcw8YSIawIkr ZZ8naYOaMEfnZr4ulYqieU dzJT4hSAIa hurfARJgkY2bWAZvdSYhoH qbSG3dAXIvonltj017NfLv LDW3LNEqeMWmD0DpfG0xFe AjMDAwMDAw E6EhcHRdBUadY963IAgzSm W8ZBYlcdQvO8HcXATyoHpu AuG6c6U8Sh73HhGDSLToqu wvdGQ+PHRk ZIG3cOgkTItgOLFjgP2vPT DhQ6a1QvZsTfN3TGikL8Wa DDBuuxqeXr94dX2uTdEbXq T9ZVxfY5Zw xyH3URClpHCySNuaUQO2N6 8rn0N7VYZjJRWlGDR3rUU8 dW9zgKcohnexcAUhlKesda VydGljYWwt ADqqZ452IXAdeKarUuEhqD FsZTwvdGQ+XTPjQAG5lUtt TUjwFWCnmM0jZDZbD6h4El MeHtK1ISot H0QeLKIhuvycEb63wK1iGu YaNrU4HWirV5YlccB5TOWh aCFnYBogQTB7X08sv9U1TZ MwMDAwMDA7 pLK1lK7vpOqklihseMQjpF pwjkHodBnmXTpgINvcK383 FPIrkIzbRx86sVQgtLqypj U2Z1FyHgyr dHI+BF84DDUsSB76vMLfkQ Obc4vrjZf4EmQxVWPbWTV5 lQsvYLldq0AzZBDuX39syR Yeq0P3HVOl vTbvuWYjQzNiaQO1eV4pCB yircaih1epanqhXetsf5vg jc46wI67I51sBIvwOKBkIV IzMCUiIHZh qYrune2ieJ9lOv0+PGNvbC Q4uVI1cH5mPqEcZnE3ERjs W061DmRwvCJaSwczf5xhr3 wceEw8VmZb PRSxjrNoySueMVA6n4UaNn 75R49uPGsgOFCuHSIvOUYh GXXfkVzlil3ocT3tIn9+PC 6tb3nvxg41 lP95gLN+QGEnIBD1rPkeBB ohDJCziW8wJMoxGxU7SJHf VmWqlT16jXTsLSueBo5wnX osvIgxTG1o MEWwpclgy897OmGgi8keUF UmqOWvFPjjRMM7I70xg2R8 HREtGBOlSRF6hTQ2aO7vuL lnbjogbGVm dDsgdmVydGljYWwtYWxpZ2 61KGUcwUzkXxSvlUNkZ1kv twWHNU3tKdzxmGG+PHRkIH P6jLzrNSbs BRKafU0sAVMpE0b1SwGuHe X9LVcvH1QpblU8NRIszYIp XURifILTlE1swwxai3oyll ogIzAwMDAw THu8IKo8UDRowExtQvHpIJ K0EdU9WFY4gJLprI9peNfd ygwtuZ9gMdn+RklOOjwvdG Q+PHRkIHN0 sYoiOBzlDSVmyG0zZXDoS5 e6GrLlSvZ8WDeuM2ZtqvM1 ADPgcLMlYUJpeLCBoC2xtm vav7jgupfq PuHfWLWzBHj1CIi8JRYvpB vtIyWeUUQ8JgB0XJA8oIVs zY6ynFtqxxhpyR5lLhb+TV JOOjwvdGQ+ NOIaXYH1uWekDAzuPRTalR 8wIYPyU2r5PxUcPcS7ZNdm I6LnwjB3FMNbqBMuUKZzpS RPpI1abalu r0tkvsjdHsTmZWNqVSc8EA x1BSPgxHkvNfNnZLZ1TlF4 LRR1gUThxP6nhHfyofxexY 9wOyc+UGF5 VDY7YI20CD66M7EoApqcdY FibGU+PHRhYmxlIHdpZHRo XQhuEVDkEnQceXhuHQ4dVo 9yZGVyLWNv bGxhcHNl (more content not included)... Normal [facility] MRI Spine Lumbar w/o Contras ton [...] HERMINIO Technologist: FAYE Technical Comments None Normal [facility] XR Spine Lumbosacral Minimum 4 Viewson [...] spine. Lumbar vertebral body heights are maintained. Kgat-qj-gtllssno intervertebral disc height loss throughout the lumbar [...] MARIA DEL ROSARIO Technical Comments Radiation Dose: Kar in mGy = na DAP = na [facility] Consent for Treatmenton 05-18 Consent for Treatment [id number] [facility] RAD - MRI Screening Formon 0 05-30-2022 RAD - MRI Screening Form [id number]#1. 00CD:127 [facility] Physician Orderon 05-23-2022 Physician Order [id number]#1.0 0CD:127 [facility] Physician Order [id number]#1. 00CD:127 [facility] Physician Order [id number]#1. 00CD:127 [facility] Workers' Comp Officeon 05-23 Workers' Comp Office [id number] [facility] [id number]#2. 00CD:127 [facility] Coding Summary.on 05-14-2022 Coding Summary. CD:[id number] Ww +PGhlYWQ+LF6WMCElB78rq BFmkM2nT4LAVPuBAfaaEYH VNSzMWpHsdiJpDL9jbVWwG XJu IC8+VI3xKRIcFmvfwJDdk5 C9yUY8G41lrs1oPFnbzBZ6 FXHbElQfvrbdk0mjeTg8VD cuNmluOyBt NGHgjC96BKC5lR92Fp86nH LckBOjm8aecAl7PqQoUXCx CYN3tLsjJFxto0LvNCZlO4 2ldXCox9C3 AKWovItmeKNaTlEotOQ5vX 6vYQjxfbsxg2woralhNmo3 fk69yVRkk1O2lXF0P9Hvnm U6JSSjcTSo RcoujNUIcP1aocjnh7ewnf rqWmZeUPZuVBb2GUl3EEYv iLoqVoIqBZ04RYQ5NGAryr ReQ5KqKMFk yRgpCaI9v5V5Ci5MH7WJPt dmE3RUDLQGCXtabGH+PC90 eq16H4YrJxawTpl0JCOiCK W6lUQ7hK4n RODaTXgrs7S8mJU8F2Bdtq Acib0hn7svPWTgMNtqD80v gPKmq8J4FLRnbQM9REJyaE wsMiCvkT75 Oyc+XLQxjQyje2JjVghaw6 wsi7xogZv4ZqygDKIxlwZc fLakUZJ0n2TxBq1aHNYhaT F3fBS6dP1t YwYoEhY2ZGbvV126VjHbgR ZnMldnL28kX9HygLB+PHRy Asc1ZWEpdHrxJT5oK2XxGI RpbmctbGVm xUavAZ9xRTPaqwzqEPBdlC 8dMJMuX4q0VpHsXnC6SPfg R1WvQCPqrezjDn68jM5sAn YqVqW4OYyu B9ZfgwA1WYHevXGpODmwGA I6W35ft4N5IVSyUZGiDRG3 pRP6sI5syKsncbygoJTajM sgdmVydGlj IQhfEAsnD262HBYkvWziVz NvZGluZyBEYXRlOiAgMDMv MjgvMjAyMzwvdGQ+PHRkIH C7qNofGUFe aQRfMKqiPm0phIghoKegHA 8hAJIbwzxoETEouM0dGMRw nCDwbNhxGA6pDNUzzzdce9 15IqFaCXM1 FLTpxFAuJ7TrjH1dZaTpJL ZtLTXbT7ZewYQjWKfjP838 QYrvCmZ9UOAfdnNeN7IwPB FsaWduOiB0 j9T1Np3Er4XnfcuuA5NpwW UwAdSsOtvvHPj8I9WeYpwo dHI+RS20APMfZU29CMe2XZ U9jFlbPUxc SBBgC4HepH7dYuRhOMJwNE RkOyc+PHRhYmxlIHdpZHRo WZlpATPpZbTqiLdrYK8kXu 9yZGVyLWNv yAjewTJvXdRzk6nzTSFxSK uoWV3vdUviW1NnmOL9ONWj i9b6Cw95J12iW9TaxJN+PG FejPP9dUA7 lT3hZrIrAiV3NOojD449Ba DirXIiZslne3zuo5kmvIz5 UpA5QKVrugUnxDsdWSH3j1 OcZm65J60t IHdpZHRoPSIxNSUiIHZhbG sujr3zuF9aFd5+PGNvbCB3 fZO1xW4sBsByRxK2EXxcF9 49InRvcCIv Rgxjm2rsq6rtdPb9PsAzUH XolnCvwGrfGOR6x0YvIy93 R5UxaWoaz3HkZkl8xk94lF Hhf6M6vPE6 L0OzKUAgnajnyTSxhMhnFY 8gJZDdbdonTVTrkX0aUJLc B9e4ErGvJpR7XMhgV4Ljpj Y1LVPfwGGx TWKjwAHGaC2xkhmfe8nwsf zwLoEgCYFpKKm9MHi0PJDp bHarZwGoQXZ5ChX3TAS8yS FahH5cnYbw ymijvA0mQvl+PCJ3hAAyaU VFXE5iLeodsXK+PHRkIHN0 qNehHNljZPJllP9bZRMzL8 l9NkIxJqL0 SNjgD2TyrnW3KFCggMOeBN DrdXOUmO6cqalea8escfmp CcPjIBGaRXk1VZi1LIWcvA duOiBsZWZ0 XcE0GWL2oURglJ6tnVoyig csqS6qJav+QmlydGggRGF0 TGd6H2VwGic3VZGloTlsBC 0ncGFkZGlu Rw7jhGzohMcbQR5vQPLgzw kja720NeFsa2neDEJwoCHz NXqgXKX9J14gb0F7OQIiPD JbGGY2pMG3 fW7clGdqcwmwhKOdeFmmos FfrKnpLOekLLvxE098NUIw iVoeMaUtTLb2O8LfZuc8SC WzsDphWN0q vAQpDPudZi5ciUscnCzgLU 2yAUZnhcywi419HlExq9ea LDRevXTkFFptVLL2R50am4 S0ITUpPPPt WWM4lUM8gV7mdNkypizeuJ VmdDsgdmVydGljYWwtYWxp V324LJMhnYblFrYjbSa0D4 JxIfm9PJRr vWskBN5otVSqVNcjPv5pcN aitTfpFY4sTLRtkjjzy107 UwMkh2nkYYGpgYTfLXxeKR J6L41vi0T4 JNAyEALrDLZ1lIQ6dG8meV lnbjogbGVmdDsgdmVydGlj XUlaFIbmO944COYjdZmcJh BhdGllbnQg MTquSAw0C7BrZtzfcKV+PC 25EGQvJC64aJZiuHTps7nq sJf5HwFtGRPmJST4oVptKB bcm3TnECHm H33ozRInn3I3SFPboJqvjJ WaFhBwtOM5zN1bBWorffaf z6dmhvmeSbmoe3hcki45sY 44C56rXPjs ZHRoPSIzMCUiIHZhbGlnbj 9elL6jNv5+ZZBrrZS9bHT0 kO8gDVAfJqX3JWieK142Da RvcCIvPjxj y8sot5lykLk9IrA9ZONlfq ZmaGyqYRO9c4LdQr45W20k IHdpZHRoPSIyMCUiIHZhbG crmh5fmT0t Ii8+LXOcxCZ1hQS7yD3zKp PbWuT1IMpsL880PgOaaMYf KpkzS56kL6NzbSZ+PHRyPj h2MMEfrQkh ZM3yvEUaQOixCg4cMBV9El HjUqSrMGumW8GnQDWawnaz oowhqKF1PPQwUPCxpT78Ir 9udDogMTBw aIFNwC5arpfgv8wwxtlcMq TwUNPlMOv1HHg8IUAfwOuj UzFdJTB7MwH2XJJ2hEYtrX 1hbGlnbjog yM0vW2WbSTQvjfjnIm10yU 7kKfEbOvR9IXcwTyi+Qkla W8YYLlcpGt9GPw3hIFibbV Q+PHRkIHN0 qLbjQMozNCEmdM1fBWCuF9 z5GfLvXsZ1WLqfM5XdVQGl xxddLi47rG2pAdJnSzJ7VL itV9PhybM3 RQOfkYSfFJscGIX6G99na5 A5YIExPZDuQEV8hXQ7sN1f bGlnbjogbGVmdDsgdmVydG ljYWwtYWxp T128DPTdgKxhRcT3GjAgOl V1BAV4P8BwKkg6PJFlcPfo GU2ngCQkPHflNd6taJwqlL ghIT2vQQCv syczUDKppX4dCEEtsXQsvV gcXT2ySYHotbkzm390OyOt DOY4QBUakCZzT2AciX8tNu AjMDAwMDAw A0YvwZVvBLhaX350THmaEc U4HDAqbgTlW0RaAGCukYmr OrO0y2B2Fi54VoXHCNIdtz wvdGQ+PHRk TWF7yVayRVlgYJVooN6wLB GmF4e5FlHxYfP4NIfxL5Da JFNorbjtMv64mK0cZtCpOs S6JQngY7Gz iiS3KWSyjXVqVAomTNA9C6 2xq2X2EIMaIRDuTMV5rZH9 kY0obNvsfafsjCNftNjmav VydGljYWwt WJqpM778KXJjtKznZhSilW FsZTwvdGQ+SBXeUJA5lXsp WJemHJOkrM1vIYMaX9w8Ii KmVwB6IPhu Q0HwOKSensmgAw12mP3sZe BrEkY6MYeeJ8TentW6QRWy vIXsYUpuPMM7Z28oq6H5SD MwMDAwMDA7 wFH7yT7xyVhjtrvuoSFlwX qzbyHnjCyhEAuoKMygG943 YHIuoIbeAeRfvT0hOTBySQ dlbWVudDwv dGQ+BW96sw65I0DnOcglYf j5VNAkEPF7lLS2xE7eAFYn VSytn9M9iDV2Y3PpdsQbnz 8bf1poOJXy OBkbA89ssRYet2G7VFZtoK S1UCIgrRroCuIzzO61Lxp+ PNVerWevb1MyWuezz3myt3 oqnLs2LdZi POWtjgZmeYyuSIU5g4NaHs 63Y95jTZyvYQHcRMNbPHNx IUYfrAgfxi3qjH4uVn1+PG JuqKX0tEP5 uY0fXiYiDfV7TZqwF724Mk AdzTQuUdtiu9jel8vxeWf7 ZsExMOGqoxMybMbzEBA8j3 IiVf49B6Ex lVckk4TdCbf5zo06hYVus9 X3wSD3S8AaSUWyntdsyMJy qYecLE0qBEPvzrnkTSYzzD 2pPCBsV2o7 PxKpEeV2EYwcB8HddjO3WD DnxEEwKMSmsQWAmS6rkbnv m5tsycyzSiLrNOAgWAf0SH j1UBKjkUwd QqDnVCS7IeU8OVE7wDUuxI 6ioLqbqglkwJ2nTqy+UGh5 o9xpfQUgJZ5svLN0DE64TO 72hUBrt8L6 rKP3P8DpAKEbfelezxkmfP M6QQHsHNYxiO85Xg1awHpi Gg0jTEWuRYP5SIWplGDuF4 RlqV1vIpIj EEKgOXHxL7XkcMPsIWsiC9 73XZofDwD4KWMkoiQlS5Ye BQRqdBmxJsQ4q8M1Pt8IQM 60CJ13RJ02 cVNxh8W1vYM8I5QoUGNjur wjntzpsBJ5QSSuWJBteQ16 If2kwZvpDd0kFWWyCPX2LZ LflNQlW5Ov bC5vOgKrGFYaJNXwC4ZmeV VbHPpxW926KHwpLxT1OANg xiXxP0VvHHQyaEblOqU7u2 R1Le5SEk65 NX48EP25jFFka8K1kGG0O7 IrFWQoahocqcbwpNT1OUDw FBGanB42Yd6myCriQh7aEC EhJER1UEXu sEYuF4PtpL4aLuOzXSQqAY FrY4KmhQHlBUxfK617FEyf NwH4PZRjxtBgT2SnYGFrpU ecDhH7k0T5 Pc8ZOWphbpa2T8TkHzkveW I+AO11ZRAsGH44xCMqtFJc r7nnfJo1YySzWJBvWLU6rJ pgYLfsp4Mp XFHsC57x (more content not included)... Normal [facility] US KIDNEYSon 05-14-2022 US KIDNEYS EXAMINATION: [...] by: SOFIE PATTERSON Date: 2022-05-14 14:20 Normal [facility] Consent for Treatmenton 04-18 Consent for Treatment [id number]#1. 00CD:127 Normal [facility] Legal Correspondence Officeo n 05-09-2022 Legal Correspondence Office [id number]#1. 00CD:127 Normal [facility] Office/Clinic Note-Physician on 05-09-2022 Office/Clinic Note-Physician [id number]#1. 00CD:127 Normal [facility] Patient Correspondenceon Patient Correspondence [id number]#1. 00CD:127 Normal [facility] Patient Correspondence [id number]#1. 00CD:127 Normal [facility] Patient Correspondence [id number]#1. 00CD:127 Normal [facility] Patient History Officeon Patient History Office [id number]#1. 00CD:127 Normal [facility] INSULINon 04-26-2022 Insulin 25.3 uIU/mL Critically high 2.6-24.9 [facility] Comment on above: Performed By: #### I NSULIN ####[facility] [address] [address]Dr[address] Marion Bullard CBC AUTO DIFFon 04-25-2022 BASO # 0.1 103/ul Normal 0.0-0.1 [facility] Comment on above: Performed By: #### C BC #### [facility] Laboratory [address] [address] [address] Marion Bullard Basophils/100 WBC (Bld) 0.6 % Normal 0.2-2.0 [facility] Comment on above: Performed By: #### C BC #### [facility] Laboratory [address] [address] [address] Marion Bullard EO # 0.2 103/ul Normal 0.0-0.7 [facility] Comment on above: Performed By: #### C BC #### [facility] Laboratory [address] [address] [address] Marion Bullard Eosinophils/100 WBC (Bld) 1.1 % Normal 0.9-7.0 [facility] Comment on above: Performed By: #### C BC #### [facility] Laboratory [address] [address] [address] Marion Bullard Erythrocyte distribution width (RBC) [Ratio] 12.7 % Normal 11.0-15.0 [facility] Comment on above: Performed By: #### C BC #### [facility] Laboratory [address] [address] [address] Marion Bullard Hematocrit (Bld) [Volume fraction] 43.8 % Normal 36.0-48.0 [facility] Comment on above: Performed By: #### C BC #### [facility] Laboratory [address] [place] [address] Dr. Marion Bullard Hemoglobin (Bld) [Mass/Vol] 14.6 g/dL Normal 12.0-16.0 [facility] Comment on above: Performed By: #### C BC #### [facility] Laboratory [address] [place] [address] Dr. Marion Bullard IG # 0.11 10e3/ul Critically high 0.00-0.03 [facility] Comment on above: Performed By: #### C BC #### [facility] Laboratory [address] [place] [address] Dr. Marion Bullard IG % 0.7 % Critically high 0.0-0.5 [facility] Comment on above: Performed By: #### C BC #### [facility] Laboratory [address] [place] [address] Dr. Marion Bullard LYMPH # 3.1 103/ul Normal 1.2-3.8 [facility] Comment on above: Performed By: #### C BC #### [facility] Laboratory [address] [place] [address] Dr. Marion Bullard Lymphocytes/100 WBC (Bld) 19.4 % Critically low 20.5-60.0 [facility] Comment on above: Performed By: #### C BC #### [facility] Laboratory [address] [place] [address] Dr. Marion Bullard MANUAL DIFF REQ NO Normal [facility] Comment on above: Performed By: #### C BC #### [facility] Laboratory [address] [place] [address] Dr. Marion Bullard MCH (RBC) [Entitic mass] 29.9 pg Normal 26.7-34.0 [facility] Comment on above: Performed By: #### C BC #### [facility] Laboratory [address] [place] [address] Dr. Marion Bullard MCHC (RBC) [Mass/Vol] 33.3 g/dL Normal 29.9-35.2 [facility] Comment on above: Performed By: #### C BC #### [facility] Laboratory [address] [address] [address] Marion Bullard MCV (RBC) [Entitic vol] 89.8 fL Normal 81.0-99.0 [facility] Comment on above: Performed By: #### C BC #### [facility] Laboratory [address] [address] [address] Marion Bullard MONO # 1.3 103/ul Critically high 0.3-0.8 [facility] Comment on above: Performed By: #### C BC #### [facility] Laboratory [address] [address] [address] Marion Bullard Monocytes/100 WBC (Bld) 8.1 % Normal 1.7-12.0 [facility] Comment on above: Performed By: #### C BC #### [facility] Laboratory [address] [address] [address] Marion Bullard NEUT # 11.3 103/ul Critically high 1.4-6.5 [facility] Comment on above: Performed By: #### C BC #### [facility] Laboratory [address] [address] [address] Marion Bullard Neutrophils/100 WBC (Bld) 70.1 % Normal 43.0-75.0 [facility] Comment on above: Performed By: #### C BC #### [facility] Laboratory [address] [place] [address] Dr. Marion Bullard Platelet mean volume (Bld) [Entitic vol] 8.5 fL Critically low 9.5-13.5 [facility] Comment on above: Performed By: #### C BC #### [facility] Laboratory [address] [address] [address] Marion Bullard PLT 488 103/ul Critically high 150-450 [facility] Comment on above: Performed By: #### C BC #### [facility] Laboratory [address] [address] [address] Marion Bullard RBC 4.88 106/ul Normal 4.20-5.40 [facility] Comment on above: Performed By: #### C BC #### [facility] Laboratory [address] [address] [address] Marion Bullard WBC 16.1 103/ul Critically high 4.0-11.0 [facility] Comment on above: Performed By: #### C BC #### [facility] Laboratory [address] [address] [address] Marion Bullard FREE THYROXINE INDEX T7on FTI 2.69 Normal 1.30-4.50 [facility] Comment on above: Performed By: #### L IPID, CMP, T7, TSH ####[facility] [address] [id number] Marion Bullard T3U 34.0 % Normal 30.0-39.0 [facility] Comment on above: Performed By: #### L IPID, CMP, T7, TSH ####[facility] [address] [id number] Bullard T4 [Mass/Vol] 7.90 ug/dL Normal 4.80-13.[address] [facility] Comment on above: Performed By: #### L IPID, CMP, T7, TSH ####[facility] [address] [place] [address]DrSolitario Bullard GLYCOHEMOGLOBIN A1Con 2022 ADA RECOMMENDATION SEE BELOW Normal [facility] Comment on above: Result Comment: ADA RECOMMENDED LIMIT 4.0 - 6.0 ADA THERAPEUTIC TARGET < 7.0 ACTION SUGGESTED > 7.0 Performed By: #### A 1C ####[facility] [address] [place] [address]DrSolitario Bullard Glucose [Mass/Vol] 120 mg/dL Normal [facility] Comment on above: Performed By: #### A 1C ####[facility] [address] [address]DrSolitario Bullard HbA1c (Bld) [Mass fraction] 5.8 % Normal 4.5-6.2 [facility] Comment on above: Performed By: #### A 1C ####[facility] [address] [place] [address]DrSolitario Bullard IRONon 04-25-2022 Iron [Mass/Vol] 94.0 ug/dL Normal 50.0-170.0 [facility] Comment on above: Performed By: #### I NANCY #### [facility] Laboratory [address] [place] [address] Dr. Marion Bullard LIPID PROFILEon 04-25-2022 CHOL-HDL RATIO NORM SEE BELOW Normal [facility] Comment on above: Result Comment: 3.3 - 4.4 LOW RISK 4.4 - 7.1 AVERAGE RISK 7.1 - 11.0 MODERATE RISK >11.0 HIGH RISK Performed By: #### L IPID, CMP, T7, TSH #### [facility] Laboratory [address] [address] [address] Marion Bullard Cholesterol [Mass/Vol] 193 mg/dL Normal <=200 [facility] Comment on above: Performed By: #### L IPID, CMP, T7, TSH #### [facility] Laboratory [address] [address] [address] Marion Bullard Cholesterol in HDL [Mass/Vol] 49 mg/dL Normal 40-60 [facility] Comment on above: Performed By: #### L IPID, CMP, T7, TSH #### [facility] Laboratory [address] [place] [address] Dr. Marion Bullard Cholesterol in LDL [Mass/Vol] 122.4 mg/dL Normal [facility] Comment on above: Performed By: #### L IPID, CMP, T7, TSH #### [facility] Laboratory [address] [place] [address] Dr. Marion Bullard Cholesterol.total/Ch olesterol in HDL [Mass ratio] 3.9 {ratio} Normal [facility] Comment on above: Performed By: #### L IPID, CMP, T7, TSH #### [facility] Laboratory [address] [place] [address] Dr. Marion Bullard HDL NORMAL > or = 60 mg/dl - LO W CARDIOVASCULAR RISK <40 mg/dl - HIGH CARDIOVASCULAR RISK Normal [facility] Comment on above: Performed By: #### L IPID, CMP, T7, TSH #### [facility] Laboratory [address] [address] [address] Marion Bullard LDL CALC NORMAL SEE BELOW Normal [facility] Comment on above: Result Comment: <100 mg/dl OPTIMAL 100 - 129 mg/dl NEAR OR ABOVE OPTIMAL 130 - 159 mg/dl BORDERLINE HIGH 160 - 189 mg/dl HIGH >190 mg/dl VERY HIGH Performed By: #### L IPID, CMP, T7, TSH #### [facility] Laboratory [address] [address] [address] Marion Bullard Triglyceride [Mass/Vol] 108 mg/dL Normal <=150 [facility] Comment on above: Performed By: #### L IPID, CMP, T7, TSH #### [facility] Laboratory [address] [address] [address] Marion Bullard VLDL CALC 21.6 mg/dL Normal [facility] Comment on above: Performed By: #### L IPID, CMP, T7, TSH #### [facility] Laboratory [address] [address] [address] Marion Bullard PROF 14(COMP METB)on 023 Albumin [Mass/Vol] 3.4 g/dL Normal 3.4-5.0 [facility] Comment on above: Performed By: #### L IPID, CMP, T7, TSH #### [facility] Laboratory [address] [address] [address] Marion Bullard Albumin/Globulin [Mass ratio] 0.9 {ratio} Normal [facility] Comment on above: Performed By: #### L IPID, CMP, T7, TSH #### [facility] Laboratory [address] [address] [address] Marion Bullard ALP [Catalytic activity/Vol] 93 U/L Normal 46-116 [facility] Comment on above: Performed By: #### L IPID, CMP, T7, TSH #### [facility] Laboratory [address] [address] [address] Marion Bullard ALT [Catalytic activity/Vol] 26 U/L Normal 14-59 [facility] Comment on above: Performed By: #### L IPID, CMP, T7, TSH #### [facility] Laboratory [address] [address] [address] Marion Bullard Anion gap [Moles/Vol] 12.7 mmol/L Normal [facility] Comment on above: Performed By: #### L IPID, CMP, T7, TSH #### [facility] Laboratory [address] [address] [address] Marion Bullard AST [Catalytic activity/Vol] 21 U/L Normal 15-37 [facility] Comment on above: Performed By: #### L IPID, CMP, T7, TSH #### [facility] Laboratory [address] [address] [address] Marion Bullard Bilirubin [Mass/Vol] 0.5 mg/dL Normal 0.2-1.0 [facility] Comment on above: Performed By: #### L IPID, CMP, T7, TSH #### [facility] Laboratory [address] [address] [address] Marion Bullard Calcium [Mass/Vol] 9.1 mg/dL Normal 8.5-10.1 [facility] Comment on above: Performed By: #### L IPID, CMP, T7, TSH #### [facility] Laboratory [address] [address] [address] Marion Bullard Chloride [Moles/Vol] 104 mmol/L Normal 98-107 [facility] Comment on above: Performed By: #### L IPID, CMP, T7, TSH #### [facility] Laboratory [address] [address] [address] Marion Bullard CO2 [Moles/Vol] 29.2 mmol/L Normal 21.0-32.0 [facility] Comment on above: Performed By: #### L IPID, CMP, T7, TSH #### [facility] Laboratory [address] [address] [address] Marion Bullard Creatinine [Mass/Vol] 0.68 mg/dL Normal 0.55-1.02 [facility] Comment on above: Performed By: #### L IPID, CMP, T7, TSH #### [facility] Laboratory [address] [address] [address] Marion Bullard EGFR-AF [place]THER[place]ISH >60 Normal >=60 [facility] Comment on above: Performed By: #### L IPID, CMP, T7, TSH #### [facility] Laboratory [address] [address] [address] Marion Bullard EGFR-NON AF [place] >60 Normal >=60 [facility] Comment on above: Performed By: #### L IPID, CMP, T7, TSH #### [facility] Laboratory [address] [address] [address] Marion Bullard Globulin (S) [Mass/Vol] 3.9 g/dL Normal [facility] Comment on above: Performed By: #### L IPID, CMP, T7, TSH #### [facility] Laboratory [address] [address] [address] Marion Bullard Glucose [Mass/Vol] 103 mg/dL Normal 74-106 [facility] Comment on above: Performed By: #### L IPID, CMP, T7, TSH #### [facility] Laboratory [address] [address] [address] Marion Bullard Potassium [Moles/Vol] 3.9 mmol/L Normal 3.5-5.1 [facility] Comment on above: Performed By: #### L IPID, CMP, T7, TSH #### [facility] Laboratory [address] [address] [address] Marion Bullard Protein [Mass/Vol] 7.3 g/dL Normal 6.4-8.2 [facility] Comment on above: Performed By: #### L IPID, CMP, T7, TSH #### [facility] [place] [address] [address] [address] Marion Bullard Sodium [Moles/Vol] 142 mmol/L Normal 136-145 [facility] Comment on above: Performed By: #### L IPID, CMP, T7, TSH #### [facility] [address] [address] [address] Marion Bullard Urea nitrogen [Mass/Vol] 13.0 mg/dL Normal 7.0-18.0 [facility] Comment on above: Performed By: #### L IPID, CMP, T7, TSH #### [facility] [address] [place] [address] Dr. Marion Bullard Urea nitrogen/Creatinine [Mass ratio] 19.1 mg/mg Normal [facility] [place] Comment on above: Performed By: #### L IPID, CMP, T7, TSH #### [facility] [address] [place] [address] Dr. Marion Bullard PROTIMEon 04-25-2022 INR Coag (PPP) [Relative time] 0.95 {INR} Normal [facility] Comment on above: Performed By: #### P TT, PT #### [facility] [address] [place] [address] Dr. Marion Bullard INR GUIDELINES SEE BELOW Normal [facility] Comment on above: Result Comment: YARELI RED INR: 2.0 - 3.0 CONDITIONS NOT LISTED BELOW 2.5 - 3.5 FOR PROSTHETIC HEART VALVE REPLACEMENT 2.5 - 3.5 RECURRENT THROMBOSIS Performed By: #### P TT, PT #### [facility] [address] [place] [address] Dr. Marion Bullard PT Coag (PPP) [Time] 10.1 s Normal 9.0-11.6 [facility] Comment on above: Performed By: #### P TT, PT #### [facility] [address] [place] [address] Dr. Marion Bullard PTTon 04-25-2022 aPTT Coag (Bld) [Time] 27.3 s Normal 22.3-36.2 [facility] Comment on above: Performed By: #### P TT, PT #### [facility] [address] [place] [address] Dr. Marion Bullard TSHon 04-25-2022 TSH 3.782 uIU/mL Critically high 0.358-3.740 [facility] Comment on above: Performed By: #### L IPID, CMP, T7, TSH #### [facility] [address] [place] [address] Dr. Marion Bullard XR HAND LT MIN [...] JANNA SON Date: 2022-03-29 16:06 Normal [facility] Coding Summary.on 03-21-2022 Coding Summary. CD:[id number] Gh 0bWw+PGhlYWQ+EW1XWEAjY 53pdWGntT2TB5jYMK3AHVP BBGSQOS9HCH8cgZW4SGujT 2VybiAv ZtrepPFmBJ68CJu3WVE8tF wmXRlbnX2gcJJhV7p3KbYx LL63mB53FXbsSWJlAhW0Ei ZpbjsgbWFy E7rpRuMllDKvBzi+PHRhYm xlIHdpZHRoPScxMDAlJyBz uJqsMQ8lYt4vSPCiWPTmhG xhcHNlOiBj b2nmKMVnBKlxVF6vsRknA0 IafYE6YAHdp2m2Uv86dNM+ WMPeTND6lOoiWPmio544Iq Trc0tnYRA5 jXGrOKagJAQ7D16ns6B2OT VuRYZuOZU8rNJ5xD2cvFju mttnW1ShgIEzHlQ1CAH4xF FbzV1gcLjf pfxtjU0mOmc+S35BYY7YVD HSPP2JEfi3L5PhHsetwKF+ WH84CPIgZK39lULdhZMaw7 nawEe9FtSs ABDsZCV8bAraWAamn2AgCQ KtE69hfTEte9Q3VLUtrIkh dUCsAuYwmGT3fE5eBTlpxm viy2lbqjgn Nbhwc1quie53mH74Z54oBY buWEOjLTN4VGKhWENueZwn lp7ndX4lYz0+GWpfo6vux7 tmtQd0PzOm BQLgfrWxjAapYOT4h4AtCu 40S0DmqOncj5JrTlc2xi74 gWSor9A6iMK9WXwwVDFjtV 3pTUboKuE7 RLRgToGrxJ01qWYmEMyjAj 7vcHznqChvZO9aLWQjhmli AORglH4yXMNchFWfcWnsQA 4wNTBpbjtm f942OzLuOUV1GWWbwTQpE5 AtxM1xWpElTSOhELWcP2Ct zGQjKFbiL921PTxoWhY9JF KofyCoX0Hg AQDgjXyrUmO9y0P3Gp7Kr3 MpbtnzHPZ8XYtbYMXrNvSr DbEvHjW5M6MpOgh1TKDshY ddRK4jE6Da ATDphfgboecznMK5MSElUE DjdB33cJEbPFukJo3nj9I7 q762PKOrWYJjqV19Zo6ltA ogMTBwdCBU nZ7kgykig2ksjkgdDiDvGR YaPXi4YXu7KYSnvUusHdTv BPL8ZjQ8CJC6rKNlmX4lcD vkehpdaF5c Oyc+H92duE7kLQI7VEJ4vb tkAMIrseXxNU95BL67B2Kp PjwvdGFibGU+PGRpdiBzdH zxHS6rSfBq k1oeo4TwWVodF4LkHUVmBG hgGhd3NLCfSRH0bLV3oY1b VOUfWZkaz8Q2uDL4K0Dkmn Nlps5tl8aw QINhPMdcD57egJTyl1F8ZT VayKT5LUJgmLwjCsNtrE22 Oyc+ZDZqzHkoy2HnCirdn1 nkf1mgvAa3 OkWyMNAgvfJwqDydNUP8t1 IvSa31W84xDJunCPKeLAIn ZXOvOWTtvUxegv8neX0cDs 8+PGNvbCB3 mEP4eP2zMTYrLdH1MEfcU6 95NyZxpLGmNsrph7rmv2nt fEt6CxQqWXQhmpSjsWcmWF A9y2SgUl27 M83pJZtdXJOoMYDuLEIiNR FypMdzic7lhD8kDs3+PC9j w6vras92eI64cDE+PHRkIH E2qGipWUow CRQolF8rPBmxZiG3BXCiUt DxsX72iNSrCThcJd3gwGud gDorEN5bMGQraqego403Eo Ggw8ytWKTr fXMwSYjfDAM0P72yn8C2HJ KgNLMaEGI2tCU7xQ1cxAvo bjogbGVmdDsgdmVydGljYW mcBYvmS997 IHRvcDsnPlBhdGllbnQgTm XfDSd5H3WzOpt5HSGbnRyt GA7zgANcQFoiHt0ehGwvgN umCE0lXLZv mnswo792ZnRwv9gtNPKdxC EvPVezYHL5T50ts9Q7NUGw CHIbZDK1vHS8cQ7exMsxab ogbGVmdDsg ygNaqXeoSJamSXznS635EE RvcDsnPkJpcnRoIERhdGU6 DZ35RI40qOYza1H9lGK6Z3 BhZGRpbmct kqvsiJO6HSAoJULthX84Gb 6pfVocPu4tFIFnUII0JXYy hJXxI2AnyR7bQaUqZBDtTZ WnY8YrzPRs RCpeS319GTucIhX0HFGxej TiV1ZrWBAyjPuuOcP6u2S5 Ld9IW2J6OV61GH11kTWxh4 R7kTB5Z0Iq BALxcgcbgyorfAR6RTQoRL OcoG95Qb7akSmqYb7dOCQk QJP2CLWmyDCfV6ElvE2yKq AjMDAwMDAw T0PrmDBeWIxwU972ZCxwJw I4MCJhnvGvP8LgIUYcqRqr SjK6s2U9Ji8JSSy5WP14UI 07kQCym0L8 hJE1U0RcCSPkgaohewnjoR Z0QJHpDQRiqC38Ae8ydTwu Dw2aTYWsMGB2LORokUCjZ6 RhbE4fZnOx NGZnGFQwV0VesWXsQDbuY4 67DCudWtS9LWVaqnAaQ3Ww QQOneDgkCeI9x8Q1Kz0TVU XqSW37GNP6 qVK8HS39WC38K8AdQcxzaT FibGU+PHRhYmxlIHdpZHRo UCueZVCcWjNyiLtiCG6rRd 9yZGVyLWNv uJlpaZXhMjHob2wwZZGsZZ mtPB8xmRmvV2ArwYR0MTWd v9c5Uj43L31hO6WjaON+PG OtpGF5bCW3 zJ6oEdCbSgW2UFpzG053Ci GbzBQgIyoqu2qaq8yqoKn2 XsN9ACQtqyCipMsoYTW4f0 BpLz80P92j IHdpZHRoPSIxNSUiIHZhbG wskl0vsQ4xDp8+PGNvbCB3 hTB4dQ5xFtXpEoK6DDsxO3 49InRvcCIv Pbred5hyk0khmAm1MbXxSH MzgxIqlOfmLLH4t7NbLt96 W3EqiYdti1DbYsf3nn78mJ Kaq3O0bXE1 L9XbQVCtcerqpNGmuTczBD 3sCPKafpqvTVWxzJ6fYCTt O0s9PmLyZtG9VAmmJ4Parq T7BURhrXWy BYtxGZT4M45md8A9FHDbUA ItSQT3jZW1nN6fqYbbdwtt bGVmdDsgdmVydGljYWwtYW zkI931LGMv xDumANHsjJ6fXPAezYOrwP miYH5fXMWsxpvcHcIJKy1H XJmjLGgIBV2ARI04U0PiJe o2ARYnrTfj ZF0urAVgQGysAj9xkYiklR qeYQ5cYCGhyztjGJWedK7w IGFujMZvcAitSD8wJKBtdq rbn478OnMe CRR7RVJxzXDjX4QxmE7cCj YrUZCuQAVgP0FkfNCmFYch Z654RCyrAlP6GWIqvdVhT4 FsLWFsaWdu LuM1u4A5Ci0yZZ4fEr1lNP N1AL57QT16jZLdw8A8lVS7 E2DgKYHwrndtmpsjaLO3QG RiZWKrsZ89 cZYaJEnmWu5zr9Z3v044BV InXFOtwC07Nf0ldAsrZHAc kUFZhM8vgxapx4oxllbhLk AwMDAwMDt0 IMp7PVSnmVdiMdHdZYC0Ld Y9PPI3vPOpjG5wqQlcfbay oX6zVtm+YgZxSCXhowP5O3 ZqIix2YFYq qJkmZM4wuUBbIWpoWi8qbS dnpTpdBY6zYDWqbpvvXYNg gM6tFQRdeWTzsIomVR8mSD Uuuwzac445 ZxQlJWY5GMMplQDkK4EhcE 0hXzCpNIAtJEWsI5MreSPd JEjlQ908UUcbBsL1RIJrpv DeL7BjMZMo uJczTfV6b7C0Ij0ALW5saT R4W5UxBtr4UXRucRogCE0q nWRnRAvzHu4hyApetXjsRJ 4wNTBpbjtw TGMlrH5tIEVisBApxCijOU 0iUMRegtvjq978EiVyAZA1 BWPbhPIiT2NfbC0iXvKcTR GlFEYeQ6Te pPTcQEnwH828SLpnKiO5CZ XcrcXtR9RuMSOejRnzTnM6 t2Q4Ik5JFTeaFQ0cpjQkXQ 6zlcU4K3Yf PjwvdHI+KN79YYDzEE46wW UizZWyy2ahgVc3ZeMkOSNk QXX4rEomRPnlj4OuVNUpF2 1bbONvx2Q5 GGXcaXumeYVgZuXywJQ0iM 3aPWhjzsxxj2qafbsfAioj z1vkkd87eV08S35jIMtjXM RoPSIzMCUi JIVaeQadze2dyO0aBm3+PG OzcQJ5eDK8eX0lGpAjMqV7 FRhrD375DsNrnXOrIgkdr6 ecr9ssdBe1 GqUfLWSwhrVcaCjfEZG6z6 MiCd64A13bBEsrHGKgBCFt DEUgTCSgcMzkhh7jfI2qGi 8+GK8pm2lw ai35dC43yVN+KAOcUKL2xV xgGEmqYDYyaF9sDPwjWbC2 EFCkRoQodL94hGOqTVnjRb 1yaWdodDog XM9pDVRhfoqnh788LfLlb1 wvTSXqiJHuCVbrOGI1I63n d0C8BQIwVBRoIVZ4jUP5wT 1hbGlnbjog bGVmdDsgdmVydGljYWwtYW uxN675PYVxnAlcDgCktYNf I8xxmePICW2uJxgpjYA+PH OuBJY2yAax QXpsVQOdoI4dDQYgZ2x6Uw ZpBhM7FTtvH0JjwsI8DOPm vJLkBEAbyFMDdS6rghvhp8 xvcjogIzAw FCFpPYb1YMv0HGYezVwxIx PwRIA7CmQ5ERY5bCQlaI0k mDgovjljwX0yMmp+RklOOj wvdGQ+PHRk URU3lUyzFCxnSKUimM2dMP MtH2m0XdPqHqF4JOctJ8Cw wfH9NVTazIJwLMClbBRLxZ 3nbiakt6ni ugznAqRbPZPbPXl7LXz9DJ TwrOxcOlFiUZJ2YsP5NQD2 iMTjxG8wwWeleranrA9gZy c+TVJOOjwv dGQ+WHDbPAK1uLkwMMfmXM RckE4jCKTtF1t6OfMvFtK3 JXcjE6TglgM8WUUkeFFdVX HapWDLlI0r wyxwk0bortjtHjErCNXjZI m5WPx9RBDcsDfvJmJaPIJ0 FkH9TAX8sVYlzX9zeTxisl hwkW4dTrf+ BMY6HQH0YX99RP68P2GpJi wvdGFibGU+PHRhYmxlIHdp ZHRoPScxMDAlJyBzdHlsZT 3rIn3gIAKa LWNv (more content not included)... Normal [facility] Consent for Procedure/Surger yon 03-20-2022 Consent for Procedure/Surgery [id number] 0CD:127 [facility] Consent for Treatmenton Consent for Treatment [id number]#1. 00CD:127 [facility] Discharge Instructionson Discharge Instructions [id number]#1.0 0CD:127 [facility] IntraOperative Documentson 0 03-20-2022 IntraOperative Documents [id number]#1.0 0CD:127 Normal [facility] IntraOperative Documents [id number]#1.0 0CD:127 Normal [facility] Main OR Intraoperative Recor don 03-20-2022 Main OR Intraoperative Record IntraOp Document Type FTPM Summary Primary Physician: Gerald Pham MD Finalized Date/Time: 03/20/22 13:43:47 Pt. Name: SHELLY HUMPHREYS Rei Gamboa/Sex: 1955 Female Med Rec #: [id number] Physician: Gerald Pham MD Financial #: [id number] Pt. Type: P Room/Bed: / Admit/Disch: 03/20/22 [...] Moore RN Role Performed Surgeon - Primary Inside Sales Lead - Primary Scrub - Primary Time In [...] Ronak Rodriguez Role Performed Staff - Other Aerial Installer Time In 03/20/22 13:34:00 03/20/22 13:34:00 Time [...] Time Out Betsy ROSE, Diane Alva, Given Desi Kramer RN, Ankit Hare MD, Mary Duarte RN, Jason Padilla Bryce Time Out Complete [...] and tissue Entry 1 Skin Integrity Intact, [place], Warm, and Skin Abnormality No Dry Outcomes [...] Extended Posit (more content not included)... Normal [facility] Main OR Preoperative Recordo n 03-20-2022 Main OR Preoperative Record Holding Area Document Type FTPM Summary Primary Physician: Gerald Pham MD Finalized Date/Time: 03/20/22 13:30:04 Pt. Name: SHELLY HUMPHREYS/Sex: 1955 Female Med Rec #: [id number] Physician: Gerald Pham MD Financial #: [id number] Pt. Type: P Room/Bed: / Admit/Disch: 03/20/22 [...] By: Brittnee Blackburn RN 03/20/22 13:30 Normal [facility] Operative Reporton 3 Operative Report SURGERY DATE: 03/20/2022 PREOPERATIVE DIAGNOSIS: [...] condition. Gerald Pham M.D. lr Dictated: 03/20/2022 [id number] Transcribed: 03/20/2022 [facility] Comment on above: Result Comment: Elec tronically Signed By: Ankit HUDSON, Gerald\.br\Date and Time Signed: 03/20/22 16:39 EST Patient Correspondenceon Patient Correspondence [id number] 0CD:127 [facility] Vital Signs Date Time Vital Sign Value Performing Clinician Facility 02-21-2023 15:11-0500 Diastolic blood pressure 101 mm[Hg] Ny[facility] 02-21-2023 15:11-0500 Heart rate 74 /min [place] [employer] 02-21-2023 15:11-0500 Mean blood pressure 116 mm[Hg] Nyasia [employer] 02-21-2023 15:11-0500 Respiratory rate 18 /min Ny[facility] [employer] [facility] 02-21-2023 15:11-0500 Systolic blood pressure 147 mm[Hg] Nyasia [employer] [facility] 01-20-2023 13:49-0500 Heart rate 81 /min Barry Pickard [facility] 01-20-2023 13:49-0500 SaO2% (BldA) [Mass fraction] 98 % Barry Pickard [facility] 01-20-2023 13:49-0500 Diastolic blood pressure 84 mm[Hg] Barry Pickard [facility] 01-20-2023 13:49-0500 Mean blood pressure 109 mm[Hg] Barry Neeraj [facility] 01-20-2023 13:49-0500 Systolic blood pressure 160 mm[Hg] Barry Neeraj [facility] 01-20-2023 13:49-0500 Respiratory rate 16 /min Barry Neeraj [facility] 01-20-2023 13:43-0500 Diastolic blood pressure 94 mm[Hg] Barry Neeraj [facility] 01-20-2023 13:43-0500 Heart rate 76 /min Barry Neeraj [facility] 01-20-2023 13:43-0500 SaO2% (BldA) [Mass fraction] 98 % Barry Neeraj [facility] 01-20-2023 13:43-0500 Systolic blood pressure 159 mm[Hg] Barry Neeraj [facility] 01-20-2023 13:35-0500 Heart rate 87 /min Barry Neeraj [facility] 01-20-2023 13:35-0500 SaO2% (BldA) [Mass fraction] 98 % Barry Neeraj [facility] 01-20-2023 13:35-0500 Diastolic blood pressure 77 mm[Hg] Barry Neeraj [facility] 01-20-2023 13:35-0500 Mean blood pressure 98 mm[Hg] Barry Neeraj [facility] 01-20-2023 13:35-0500 Systolic blood pressure 140 mm[Hg] Barry Neeraj [facility] 01-20-2023 13:33-0500 Respiratory rate 14 /min Barry Pickard [facility] 06-24-2022 13:44-0400 Body temperature 98.49 [degF] John Liz MD Work Phone: [facility] 06-24-2022 13:44-0400 Body weight 93.44 kg John Liz MD Work Phone: [facility] 05-09-2022 14:51-0400 Diastolic blood pressure 79 mm[Hg] Gerald Zumbar [facility] 05-09-2022 14:51-0400 Heart rate 90 /min Gerald Zumbar [facility] 05-09-2022 14:51-0400 Mean blood pressure 94 mm[Hg] Gerald Zumbar [facility] 05-09-2022 14:51-0400 Respiratory rate 16 /min Gerald Zumbar [facility] 05-09-2022 14:51-0400 Systolic blood pressure 125 mm[Hg] Gerald Zumbar [facility] 03-20-2022 13:46-0500 Diastolic blood pressure 65 mm[Hg] Gerald Zumbar [facility] 03-20-2022 13:46-0500 Heart rate 89 /min Gerald Zumbar [facility] 03-20-2022 13:46-0500 Mean blood pressure 85 mm[Hg] Gerald Zumbar [facility] 03-20-2022 13:46-0500 Systolic blood pressure 124 mm[Hg] Gerald Zumbar [facility] 03-20-2022 13:37-0500 Diastolic blood pressure 107 mm[Hg] Gerald Zumbar [facility] 03-20-2022 13:37-0500 Heart rate 80 /min Gerald Zumbar [facility] 03-20-2022 13:37-0500 Respiratory rate 14 /min Gerald Zumbar [facility] 03-20-2022 13:37-0500 SaO2% (BldA) [Mass fraction] 98 % Gerald Zumbar [facility] 03-20-2022 13:37-0500 Systolic blood pressure 144 mm[Hg] Gerald Zumbar [facility] 03-20-2022 13:23-0500 Heart rate 82 /min Gerald Zumbar [facility] 03-20-2022 13:23-0500 SaO2% (BldA) [Mass fraction] 96 % Gerald Zumbar [facility] 03-20-2022 13:23-0500 Diastolic blood pressure 85 mm[Hg] Gerald Zumbar [facility] 03-20-2022 13:23-0500 Mean blood pressure 107 mm[Hg] Gerald Zumbar [facility] 03-20-2022 13:23-0500 Systolic blood pressure 149 mm[Hg] Gerald Zumbar [facility] 03-20-2022 13:23-0500 Body temperature 98.06 [degF] Gerald Zumbar [facility] 03-20-2022 13:22-0500 Respiratory rate 12 /min Gerald Zumbar [facility] 01-23-2022 09:24-0500 Diastolic blood pressure 81 mm[Hg] Gerald Zumbar [facility] 01-23-2022 09:24-0500 Heart rate 81 /min Gerald Zumbar [facility] 01-23-2022 09:24-0500 Mean blood pressure 100 mm[Hg] Gerald Zumbar [facility] 01-23-2022 09:24-0500 Respiratory rate 12 /min Gerald Zumbar [facility] 01-23-2022 09:24-0500 Systolic blood pressure 137 mm[Hg] Gerald Zumbar [facility] 11-20-2021 07:59-0400 Diastolic blood pressure 94 mm[Hg] Cezar Coe [facility] 11-20-2021 07:59-0400 Heart rate 76 /min Cezar Coe [facility] 11-20-2021 07:59-0400 Mean blood pressure 115 mm[Hg] Cezar Coe [facility] 11-20-2021 07:59-0400 Systolic blood pressure 158 mm[Hg] Cezar Coe [facility] 11-15-2021 14:24-0400 Diastolic blood pressure 89 mm[Hg] Gerald Zumbar [facility] 11-15-2021 14:24-0400 Heart rate 83 /min Gerald Zumbar [facility] 11-15-2021 14:24-0400 Mean blood pressure 108 mm[Hg] Gerald Zumbar [facility] 11-15-2021 14:24-0400 Respiratory rate 12 /min Gerald Zumbar [facility] 11-15-2021 14:24-0400 Systolic blood pressure 145 mm[Hg] Gerald Pham [facility] Encounters Encounter Date Encounter Type Care Provider Facility Start: 03-10-2023 End: 03-10-2023 ambulatory ADÁN Rei Dana Facility:[facility] Start: 02-21-2023 End: 02-22-2023 ambulatory Nyasia Helton Facility:[facility] Start: 02-21-2023 End: 02-21-2023 Pain Management Nyasiataras Helton [facility] Start: 01-22-2023 End: 01-22-2023 ambulatory [facility] Facility:[facility] Start: 01-22-2023 End: 01-22-2023 Patient encounter procedure John Liz MD Work Phone: Rheumatology Comment on above: Seropositive rheumat oid arthritis (HCC) (Primary Dx); Medication monitoring encounter Start: 01-20-2023 End: 01-21-2023 ambulatory Barry Pickard Facility:[facility] Start: 01-20-2023 End: 01-20-2023 Pain Management Barry Pickard [facility] Start: 01-17-2023 End: 01-17-2023 ambulatory [facility] Facility:[facility] Start: 12-12-2022 Refill John Liz MD Work Phone: Rheumatology Comment on above: Refill Request Start: 11-08-2022 Telephone encounter Yanna De Santiago ala, MD Work Phone: Dermatology Comment on above: Patient Question Start: 11-06-2022 Refill Yanna Miller MD Work Phone: Dermatology Comment on above: Refill Request Start: 10-28-2022 Telephone encounter John Liz MD Work Phone: Rheumatology Comment on above: Patient Update (Brui sing) Start: 10-01-2022 Telephone encounter John Liz MD Work Phone: Rheumatology Comment on above: Medication Problem Start: 09-25-2022 End: 09-25-2022 ambulatory JOHN MODEL Facility:[facility] Start: 09-25-2022 End: 09-25-2022 Patient encounter procedure John Liz MD Work Phone: Rheumatology Comment on above: Seropositive rheumat oid arthritis (HCC) (Primary Dx); Medication monitoring encounter Start: 08-06-2022 End: 08-06-2022 ambulatory JOHN LIZ Facility:[facility] Start: 06-27-2022 End: 06-28-2022 ambulatory YANNA MILLER Facility:[facility] Start: 06-27-2022 End: 06-27-2022 Patient encounter procedure Yanna Miller MD Work Phone: Dermatology Comment on above: Psoriasis (Primary D x); Intertrigo Start: 06-26-2022 Telephone encounter John Liz MD Work Phone: Rheumatology Comment on above: Results Start: 06-26-2022 End: 06-27-2022 ambulatory MD Gerald Pham Facility:[facility] Start: 06-24-2022 End: 06-24-2022 ambulatory JOHN [place] Facility:[facility] Start: 06-24-2022 End: 06-24-2022 Patient encounter procedure John Liz MD Work Phone: Rheumatology Comment on above: Bilateral hand swell ing (Primary Dx); Psoriasis Start: 06-19-2022 End: 06-20-[address] ADÁN LALA . Facility: Start: 05-30-2022 End: 05-31-2022 ambulatory Gerald Pham Facility:[facility] Start: 05-30-2022 End: 05-30-2022 Patient encounter procedure Gerald Pham [facility] Start: 05-14-2022 End: 05-15-[address] ADÁN LALA . Facility:[facility] Start: 05-09-2022 End: 05-10-2022 ambulatory Gerald Pham Facility:[facility] Start: 05-09-2022 End: 05-09-2022 Pain Management Gerald Zumbar [facility] Start: 04-25-2022 End: 04-26-[address] ADÁN LALA . Facility: Start: 03-29-2022 End: 03-30-[address] ADÁN LALA . Facility: Start: 03-20-2022 End: 03-21-2022 ambulatory Gerald Zumbar Facility:[facility] Start: 03-20-2022 End: 03-20-2022 Pain Management Gerald Zumbar [facility] Start: 01-23-2022 End: 01-23-2022 Pain Management Gerald Charltonar [facility] Start: 11-20-2021 End: 11-20-2021 Patient encounter procedure Cezar Coe [facility] Start: 11-15-2021 End: 11-15-2021 Pain Management Gerald Pham [facility] Procedures Date Procedure Procedure Detail Performing Clinician Start: 01-20-2023 Injection of nerve r oot of lumbar spine using fluoroscopic guidance Nyasia Helton Comment on above: 02/21/2023 15:13 SHARMIN Fisher RN, Janay Minaya 85% x2 weeks, now 0% Start: 05-09-2022 Epidural injection o f thoracic [...] Vaccine (2 - Td or Tdap) [facility] Start: 01-17-2026 [facility] Start: 09-25-2025 DIABETES SCREEN DIABETES SCREEN [facility] Start: 09-25-2025 [facility] Start: 08-06-2025 DIABETES SCREEN DIABETES SCREEN [facility] Start: 06-24-2025 DIABETES SCREEN DIABETES SCREEN [facility] Start: 04-23-2023 End: 01-23-2024 CBC W Auto Differential panel - Blood CBC + DIFF Lab Routine Seropositive rheumatoid arthritis (HCC) Medication monitoring encounter Expected: 04/23/2023, Expires: 01/23/2024 [facility] Work Phone: Comment on above: Expected: 04/23/2023 , Expires: 01/23/2024 Start: 04-23-2023 End: 01-23-2024 Comprehensive metabolic 2000 panel - Serum or Plasma COMP METABOLIC PANEL Lab Routine Seropositive rheumatoid arthritis (HCC) Medication monitoring encounter Expected: 04/23/2023, Expires: 01/23/2024 [facility] Work Phone: Comment on above: Expected: 04/23/2023 , Expires: 01/23/2024 Start: 04-23-2023 End: 01-23-2024 Erythrocyte sedimentation rate SED RATE WESTERGREN Lab Routine Seropositive rheumatoid arthritis (HCC) Medication monitoring encounter Expected: 04/23/2023, Expires: 01/23/2024 [facility] Work Phone: Comment on above: Expected: 04/23/2023 , Expires: 01/23/2024 Start: 12-12-2022 End: 12-13-2023 CBC W Auto Differential panel - Blood CBC + DIFF Lab Routine Seropositive rheumatoid arthritis (HCC) Medication monitoring encounter Expected: 12/12/2022, Expires: 12/13/2023 [facility] Work Phone: Comment on above: Expected: 12/12/2022 , Expires: 12/13/2023 Start: 12-12-2022 End: 12-13-2023 Comprehensive metabolic 2000 panel - Serum or Plasma COMP METABOLIC PANEL Lab Routine Seropositive rheumatoid arthritis (HCC) Medication monitoring encounter Expected: 12/12/2022, Expires: 12/13/2023 [facility] Work Phone: Comment on above: Expected: 12/12/2022 , Expires: 12/13/2023 Start: 12-12-2022 End: 12-13-2023 Erythrocyte sedimentation rate SED RATE WESTERGREN Lab Routine Seropositive rheumatoid arthritis (HCC) Medication monitoring encounter Expected: 12/12/2022, Expires: 12/13/2023 [facility] Work Phone: Comment on above: Expected: 12/12/2022 , Expires: 12/13/2023 Start: 10-18-2022 Influenza vaccination [facility] Start: 09-25-2022 End: 09-26-2023 Comprehensive metabolic 2000 panel - Serum or Plasma [facility] Work Phone: Comment on above: Expected: 09/25/2022 , Expires: 09/26/2023 Start: 09-25-2022 End: 09-26-2023 Erythrocyte sedimentation rate [facility] Work Phone: Comment on above: Expected: 09/25/2022 , Expires: 09/26/2023 Start: 06-26-2022 End: 06-27-2023 CBC W Auto Differential panel - Blood CBC + DIFF Lab Routine Inflammatory arthritis Medication monitoring encounter Expected: 06/26/2022, Expires: 06/27/2023 [facility] Work Phone: Comment on above: Expected: 06/26/2022 , Expires: 06/27/2023 Start: 06-26-2022 End: 08-26-2022 Chronic hepatitis differentiation between hepatitis B and C virus panel - Serum or Plasma HEP REMOTE PANEL BL Lab Routine Inflammatory arthritis Medication monitoring encounter Expected: 06/26/2022, Expires: 08/26/2022 [facility] Work Phone: Comment on above: Expected: 06/26/2022 , Expires: 08/26/2022 Start: 06-26-2022 End: 06-27-2023 Comprehensive metabolic 2000 panel - Serum or Plasma COMP METABOLIC PANEL Lab Routine Inflammatory arthritis Medication monitoring encounter Expected: 06/26/2022, Expires: 06/27/2023 [facility] Work Phone: Comment on above: Expected: 06/26/2022 , Expires: 06/27/2023 Start: 06-26-2022 End: 06-27-2023 Erythrocyte sedimentation rate SED RATE WESTERGREN Lab Routine Inflammatory arthritis Medication monitoring encounter Expected: 06/26/2022, Expires: 06/27/2023 [facility] Work Phone: Comment on above: Expected: 06/26/2022 , Expires: 06/27/2023 Start: 06-24-2022 End: 06-25-2023 C reactive protein [Mass/volume] in Serum or Plasma [facility] Work Phone: Comment on above: Expected: 06/24/2022 , Expires: 06/25/2023 Start: 06-24-2022 End: 08-24-2022 Comprehensive metabolic 2000 panel - Serum or Plasma [facility] Work Phone: Comment on above: Expected: 06/24/2022 , Expires: 08/24/2022 Start: 06-24-2022 End: 08-24-2022 Creatine kinase [Enzymatic activity/volume] in Serum or Plasma [facility] Work Phone: Comment on above: Expected: 06/24/2022 , Expires: 08/24/2022 Start: 06-24-2022 End: 06-25-2023 Cyclic citrullinated peptide IgG Ab [Units/volume] in Serum or Plasma [facility] Work Phone: Comment on above: Expected: 06/24/2022 , Expires: 06/25/2023 Start: 06-24-2022 End: 06-25-2023 Nuclear Ab [Presence] in Serum by Immunoassay [facility] Work Phone: Comment on above: Expected: 06/24/2022 , Expires: 06/25/2023 Start: 06-24-2022 End: 08-24-2022 PROTEIN ELECTROPHORESIS SERUM W/INTERP [facility] Work Phone: Comment on above: Expected: 06/24/2022 , Expires: 08/24/2022 Start: 06-24-2022 End: 06-25-2023 Rheumatoid factor [Units/volume] in Serum or Plasma [facility] Work Phone: Comment on above: Expected: 06/24/2022 , Expires: 06/25/2023 Start: 06-24-2022 End: 08-24-2022 Urate [Mass/volume] in Serum or Plasma [facility] Work Phone: Comment on above: Expected: 06/24/2022 , Expires: 08/24/2022 Start: 02-17-2022 ADVANCE DIRECTIVE DISCUSSION ADVANCE DIRECTIVE DISCUSSION [facility] Start: 02-17-2022 DEPRESSION ASSESSMENT DEPRESSION ASS ESSMENT [facility] Start: 09-28-2020 BONE DENSITY BONE DENSITY [facility] Start: 09-28-2020 Bone Density Screening Bone Density Screening [facility] Start: 09-28-2020 PNEUMOCOCCAL: 65+ (1 - PCV) PNEUMOCOCCAL: 65+ (1 - PCV) [facility] Start: 02-28-2017 Pneumococcal Vaccine : 65+ (2 - PCV) Pneumococcal Vaccine: 65+ (2 - PCV) [facility] Start: 2015 RSV Vaccine (1 - 1-d ose 60+ series) RSV Vaccine (1 - 1-dose 60+ series) [facility] Start: 09-28-2005 SHINGRIX VACCINE (1 of 2) BA GRIX VACCINE (1 of 2) [facility] Start: 09-28-2000 COLOGUARD (FIT-DNA) COLOGUARD (FIT-D NA) [facility] Start: 09-28-2000 Colonoscopy COLONOSCOPY [facility] Start: 09-28-2000 COLORECTAL CANCER SCREENING COLORECTAL CANCER SCREENING [facility] Start: 09-28-[address] COLONOGRAPHY [facility] Start: 09-28-2000 DIABETES SCREEN DIABETES SCREEN [facility] Start: 09-28-2000 FECAL OCCULT BLOOD FECAL OCCULT BLOO D [facility] Start: 09-28-2000 Lipid 1996 panel - S west or Plasma Lipid Screening [facility] Start: 09-28-2000 LIPID SCREEN LIPID SCREEN [facility] Start: 09-28-2000 SIGMOIDOSCOPY SIGMOIDOSCOPY [facility] Start: 1995 Mammography [facility] Start: 09-28-1974 SHINGRIX VACCINE (1 of 2) BA GRIX VACCINE (1 of 2) [facility] Start: 09-28-1974 Urine microalbumin profile [facility] Start: 09-28-1973 HEPATITIS C SCREENING HEPATITIS C SC REENING [facility] Start: 09-28-1961 Pneumococcal Vaccine : 65+ (1 - PCV) Pneumococcal Vaccine: 65+ (1 - PCV) [facility] Start: 09-28-1961 PNEUMOCOCCAL: 65+ (1 - PCV) PNEUMOCOCCAL: 65+ (1 - PCV) [facility] Start: 09-28-1960 COVID-19 VACCINE (#1) COVID-19 VACCI NE (#1) [facility] Start: 03-31-1956 COVID-19 VACCINE (#1) COVID-19 VACCI NE (#1) [facility] CBC W Auto Different ial panel - Blood CBC + DIFF Lab Routine Bilateral hand swelling 06/24/2022 3:03 PM EDT [facility] Work Phone: End: 07-24-2023 Radiologic exam chest 2 views XR CHEST 2V FRONTAL/LAT Radiology Routine Bilateral hand swelling 1 Occurrences starting 06/24/2022 until 07/24/2023 [facility] Work Phone: Comment on above: 1 Occurrences starti ng 06/24/2022 until 07/24/2023 Radiologic exam ches t 2 views XR CHEST 2V FRONTAL/LAT Radiology Routine Bilateral hand swelling 06/24/2022 3:26 PM EDT [facility] Work Phone: [facility] Immunizations Immunization Date Immunization Notes Care Provider Foreign caputo 12-20-2018 influenza virus vaccine, unspecified formulation John Liz MD Work Phone: [facility] 12-18-2018 influenza virus vaccine, live, attenuated, for intranasal use Gerald Pham [facility] [place] Payers Date Payer Category Payer Worker's Compensation 04 2022 Worker's Compensation 04 2021 Medicaid MEDICAID [facility] MEDICAID [id number] 2021-Present [phone] [address] [place] [address] Medicaid [id number] 1959 Medicaid [id number] 1959 Medicare [id number] 1955 Unknown [id number] 3 1955 Unknown [id number] 3 1955 Unknown [id number] 3 1955 Unknown [id number] 3 1955 Unknown [id number] 7 1955 Unknown [id number] 7 1955 Unknown [id number] 7 1955 Unknown [id number] 7 1955 Unknown [id number] 7 1955 Unknown [id number] 7 Social History Date Type Detail Facility Start: 02-15-2021 Tobacco smoking status Heavy t obacco smoker (finding) [facility] Start: 06-23-2022 End: 06-24-2022 Sex Assigned At Female [facility] Tobacco smoking stat [facility] Tobacco smoking consumption unknown [facility] Work Phone: Start: 1955 Sex Assigned At Female [facility] Start: 06-23-2022 End: 06-24-2022 History of Social function [facility] Adult Depression Screening Assessment 2 [facility] Start: 06-23-2022 Gender identity Identifies as female gender (finding) [facility] Start: 06-23-2022 Sexual orientation Heterosexual (fin ding) [facility] Functional Status Date Assessment Result Facility 02-21-2023 Functional Status N/A [facility] 01-20-2023 Functional Status N/A [facility] 05-09-2022 Functional Status N/A [facility] 03-20-2022 Functional Status N/A [facility] 01-23-2022 Functional Status N/A [facility] 11-20-2021 Functional Status N/A [facility] 11-15-2021 Functional Status N/A [facility] Clinical Notes 03-20-2022 to 03-10-2023 Note Date & Type Note Facility 03-10-2023 Note HNO ID: [id number] Author: YANNA MILLER MD Service: ? Author Type: Physician Type: Progress Notes Filed: 03/10/2023 13:55 Note Text: Established patient Last Seen: Sameera 07/09 CC: psoriasis HPI: Shelly Wilson 67 year old female here for follow up. Prior treatment of intertrigo with triamcinolone, ketoconazole, A AND D ointment Flares : continuous Location : posterior legs, buttocks, facial skin is dry, scalp is starting to flare as well Symptoms : dry, flaky, itchy, at times painful Current treatment : triamcinolone, ketoconazole - trying to use often but tube runs out quickly Prior treatment : Triamcinolone 2) Intertrigo- improved Joint pain in the wrist, hands. Recently tapered off prednisone. Relevant past medical history : Rheumatoid Arthritis on plaquenil, MTX (6 pills per week) hydrOXYchloroQUINE (PLAQUENIL) 200 mg tablet Take 1 tablet by mouth two times a day. predniSONE (DELTASONE) 5 mg tablet Take 2 [...] Alert, pleasant, cooperative Tae skin type: II Erythematous plaques with micaceous scale on the intergluteal cleft, buttocks, dorsal hands [place] macerated plaques on the abdominal pannus A/P: Shelly Wilson is a 66 year old female with rheumatoid arthritis on HCQ AND methotrexate. Psoriasis vulgaris , BSA2% Some evidence of skin thinning and ecchymoses today. Recommend steroid-sparing topical. - start vtama cream to be applied to affected areas once daily. Okay to apply to the face and buttocks - noted that Plaquenil may worsen psoriasis In reserve: Miranda, discussed risks including GI upset, weight loss, depression (denies history of psychiatric disease/suicide attempt) 2. Intertrigo, improved - associated with obesity - continue ketoconazole 2% to the skin folds BID and keep area clean and dry avoid chafing with use of OTC miconazole powder. Risks/benefits/alternatives to all procedures and treatments were discussed RTC 2-3 months or sooner if something concerning arises. Resident: Papito Arango MD Dermatology, PGY- 2 I was physically present during the critical/sims portions of this encounter and during all procedures, and agree with the above evaluation, assessment, and treatment plan. I reviewed the patient's chart and discussed care with the patient, Resident, and the other physicians involved. There were no procedures performed during this patient's visit. The resident's note was annotated by me as needed to reflect my direct input. Yanna Miller MD Dermatology Staff [facility] 02-21-2023 Evaluation + Plan note Extrac joshua from: Title:Pain Managment Follow up Author:Nyasia Miller Date:02/21/23 Impression and Plan Patient is a 67-year-old female with a past medical history significant for a [facility] claim. The approved diagnosis codes are lumbosacral spinal stenosis M48.07 And strain of unspecified muscles in the right thigh S76.911A. She is lower back pain with bilateral leg pain that she rates a 4/10 that unfortunate, has not been improved with previous injections and her most recent transforaminal epidural steroid injection also did not give her any long-term relief. We once again reviewed her MRI and discussed options. At this time, patient does not want to have any more injections. She is going to continue on Ayr given to her by her PCP. She is going to start Lyrica 50 mg twice daily. Potential side effects were discussed. How to use the medication was discussed. OARRS was reviewed. COLLETTE score: 46%. Follow-up in 1 month. Future Appointments Appointment Date:03/28/2023 02:15:00 PM Scheduled Provider:Nyasia Helton PA-C Location:[facility] Appointment Type:Pain Management - Workmans Comp Follow U [facility]12-06-2023 NoteHNO ID: [id number] Author: John Liz MD Service: ? Author [...] wrist. She had XR showing osteoarthritis. Dr Lala her PCP from [facility] in [place] prescribed prednisone 40 mg/d x 5. 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 She had XR showing osteoarthritis. Dr Lala her PCP from [facility] in [place] prescribed prednisone 40 mg/d x 5. Reduced the swelling. Then she had another attack in B hands and she was put on 60 mg/d of prednisone x 5 d and she is onthe last day now. She is ok today [...] mo John Liz MD documented in this encounterTri[facility]12-04-2023 Note [id number] [facility] 12-12-2022 Miscellaneous Notes* Telephone Encounter - John Liz MD - 12/12/2022 9:17 AM EDT Orders Placed This Encounter CBC + DIFF Standing Status: Future Standing Expiration Date: 12/13/2023 COMP METABOLIC PANEL Standing Status: Future Standing Expiration Date: 12/13/2023 SED RATE WESTERGREN Standing Status: Future Standing Expiration Date: 12/13/2023 methotrexate 2.5 mg tablet Sig: TAKE 6 TABLETS BY MOUTH ONE TIME A WEEK Dispense: 72 tablet Refill: 1 * Telephone Encounter - Katy Blum - 12/12/2022 8:42 AM EDT Most recent Rheumatology visit: 09/25/2022 (with John Liz) May need labs Appt 01/22/2023 Recent Office Visits - This Specialty 09/25/2022 Seropositive rheumatoid arthritis (HCC) Rheumatology John Liz MD 06/24/2022 Bilateral hand swelling Rheumatology John Liz MD Upcoming Rheumatology Appointments - Next 365 Days Visit Type Date Time Department FLAVIO EST [facility] 01/22/2023 1:40 PM [facility] CBC: CBC Latest Ref Rng & [...] Instance) Lab Orders None documented in this encounterTrihealth [facility]09-22-2023 Miscellaneous Notes* Telephone Encounter - Hallie Stallings - 11/08/2022 11:07 AM EDT Patient called in to let Dr. Miller that the triamcinolone (KENALOG) 0.025 % ointment does not work. Patient wants to know if she can be prescribed something else. ketoconazole (NIZORAL) 2 % cream is working well for the patient. documented in this encounterTrihealth [facility]09-21-2023 Miscellaneous Notes* Telephone Encounter - Doreen William - 11/07/2022 8:54 AM EDT Patient last seen 06/2022 RX Ketoconazole Please approve prescription and any additional refills and e-script to designated pharmacy. Thank you, Doreen William documented in this encounterTrihealth [facility]09-12-2023 Miscellaneous Notes* Telephone Encounter - Lucinda Agarwal RN - 10/29/2022 2:13 PM EDT I called her back and gave her the information. She verbalized understanding and will try going back to 10 mg/day Prednisone. * Telephone Encounter - John Liz MD - 10/29/2022 1:47 PM EDT She can try going back tp prednisone 10 mg/d. Glad her bruising is better. MTX higher dose may takelonger to wpork John Liz MD * Telephone Encounter - Lucinda Agarwal RN - 10/29/2022 1:33 PM EDT Patient called back and I spoke with her. She stopped taking the Celebrex last week, (still taking Prednisone and Cymbalta). Bruising is significantly improving since she's been off the Celebrex. Feet are starting to swell again since she's changed the Prednisone dose to 5 mg/day alternating 10/day. Will forward to provider. * Telephone Encounter - Lucinda Agarwal RN - 10/29/2022 11:53 AM EDT I tried to call Shelly today to discuss, left her a VM to give us a call back. Lucinda MONGE RN * Telephone Encounter - Noa Underwood - 10/28/2022 3:34 PM EDT Last time patient was in the office, [...] from 21 to 16. documented in this encounterTrihealth [facility]08-16-2023 Miscellaneous Notes* Telephone Encounter - Karyn Koenig - 10/02/2022 3:24 PM EDT Spoke with patient via phone. She is going to try 5 mg and 10 mg every other day alternating. I did tell her that the higher dose of MTX will take few weeks to kick in. She verbalizes understanding. She will call us back if there is no improvement. * Telephone Encounter - Karyn Koenig - 10/02/2022 1:57 PM EDT Left message to call office. * Telephone Encounter - Katy Blum - 10/02/2022 1:24 PM EDT Lmtcb * Telephone Encounter - John Liz MD - 10/02/2022 10:52 AM EDT Is she talking about steroid taper? Is she on 5 mg/d? She can try 5 mg and 10 mg every other day alternating. Higher dose of MTX will take few weeks to kick in. John Liz MD * Telephone Encounter - Liana Lynn - 10/01/2022 4:12 PM EDT Pt called to let dr. Liz know since she changed how she takes her medications her feet and anklesare swelling Please call pt [phone] documented in this encounterTrihealth [facility]08-09-2023 NoteHNO ID: [id number] Author: John Liz MD Service: ? Author [...] wrist. She had XR showing osteoarthritis. Dr Lala her PCP from [facility] in [place] prescribed prednisone 40 mg/d x 5. 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 She had XR showing osteoarthritis. Dr Lala her PCP from [facility] in [place] prescribed prednisone 40 mg/d x 5. Reduced the swelling. Then she had another attack in B hands and she was put on 60 mg/d of prednisone x 5 d and she is onthe last day now. She is ok today [...] mo John Liz MD documented in this encounterTrihealth [facility]05-11-2023 NoteHNO ID: [id number] Author: Yanna Miller MD Service: ? Author Type: Physician Type: [...] Lymph 1.00 - 4.00 k/uL 4.49 (H) Chariton% % 7.0 Abs Chariton <0.87 k/uL 1.50 (H) Eosin% % 0.0 [...] systemic rheumatologic management sugges (more content not included)...[facility]05-11-2023 History of Present illness Narrative* Yanna Miller MD - 06/27/2022 11:07 AM EDT New patient Consultation requested by Dr. Liz [...] Lymph 1.00 - 4.00 k/uL 4.49 (H) Chariton% % 7.0 Abs Char[place] <0.87 k/uL 1.50 (H) Eosin% % 0.0 [...] clean and dry avoid chafing with use ofOTC miconazole powder. Will inform Dr. Model of these impressions, no changes to systemic [...] or sooner if something concerning arises. Yanna Miller MD documented in this encounterTrihealth Good [facility]05-10-2023 Miscellaneous Notes* Telephone Encounter - Karyn Koenig - 06/26/2022 3:35 PM EDT I spoke with the patient and explained the message below from Dr. Liz. She verbalizes understanding of all topics dicussed. * Telephone Encounter - John Liz MD - 06/26/2022 3:02 PM EDT I sent MTX 4 tabs/week and folic [...] 30 tablet Refill: 2 John Liz MD * Telephone Encounter - Karyn Koenig - 06/26/2022 2:38 PM EDT Spoke with patient via phone. Explained results and methotrexate. Discussed possible SE/risks/benefits with patient. She agrees to try it. I will send her information in the mail. She said please send Rx to [facility] pharmacy in [place], [place] on [address]. She also notes that her hands are stiff and swollen again. She stopped prednisone Friday (she is out of pills) and the stiffness and swelling came back this morning. Also - she made an appointment to see Derm at [facility]. Her appointment is tomorrow 06/27. 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 Patient understands a need to regular blood tests monitoring (q 6 weeks initially and if stable q 3 mo). Patient understands that he or sheneeds to abstain form drinking alcohol while on MTX. She is off prednisone now. Are her hands swollen? John Liz MD documented in this encounterTrihealth Good [facility]05-08-2023 NoteHNO ID: [id number] Author: John Liz MD Service: ? Author [...] wrist. She had XR showing osteoarthritis. Dr Lala her PCP from [facility] in [place] prescribed prednisone 40 mg/d x 5. Reduced [...] which included preparing to see the patient, [id number] patient care, completing clinical documentation, obtaining and/or reviewing separately obtained (more content not included)...[facility]05-08-2023 History of Present illness Narrative* John Liz MD - 06/24/2022 2:06 PM EDT Images from the original note were not included. Rheumatology CONSULTATION Date of Service: 06/24/2022 Consultation requested by BOYD Bee for an opinion regarding hand swelling. 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 She had XR showing osteoarthritis. Dr Lala her PCP from [facility] in [place] prescribed prednisone 40 mg/d x 5. Reduced the swelling. Then she had another attack in B hands and she was put on 60 mg/d of prednisone x 5 d and she is onthe last day now. She is ok today [...] oral sores, No sicca syndrome, No alopecia, Noeye inflammation, Yes psoriasis, No inflammatory bowel disease [...] which included preparing to see the patient, [id number] patient care, completing clinical documentation, obtaining and/or reviewing separately obtained history, performing a medically appropriate examination, counseling and educating the pat ient/family/caregiver, and ordering medications, tests, or procedures. documented in this encounterTrihealth Good Samaritan Hospital03-25-2023 NoteHOSPITAL REGULATIONS: All Positive and Important Negative Findings Shall Be Recorded Date of Consultation: 05/09/2022 Attending Physician: Adán Lala M.D. Consulting Physician: Gerald Pham M.D. CHIEF COMPLAINT: Low back and leg pain. HISTORY OF PRESENT ILLNESS: This is a 66 year old female seen for a chief complaint of low back andleg pain. She rates her symptoms as a 5/10 and describes it as a sharp sensation. She states it goes down both legs into the tops of both feet. The right is the worst but the left has become more both ersome recently. At her last visit she underwent a L5-S1 epidural steroid injection. She reports some relief but not as much as after the first injection. She reports that the pain is severe and limits her function. She would still like to hold off on back surgery if she can help it. She denies newneurologic symptoms or issues with bladder or bowel [...] stenosis at the L4-5 foramen. I reviewed [employer] Automated Prescription Reporting System report on her which [...] the patient in total. Gerald Pham M.D. Dictated: 05/09/2022 [id number] Transcribed: 05/10/2022 cc:Adán Lala M.D.[facility] HospitalComment on above:Result Comment: Electronically Signed By: Ankit HUDSON, Gerald\.br\Date and Time Signed: 05/11/22 18:51 [id number] Note [id number]:127[facility] Evaluation + Plan note Future Appointments Appointment Date:11/20/2021 08:00:00 AM Scheduled Provider:Cezar Coe MD [facility] Type[facility] - Worker's Comp [facility] Future App[facility]ments Appointment Date:05/09/2022 02:30:00 PM Scheduled Provider:Gerald Pham MD Location:[facility] [place] Appointment Type:[facility] - [facility] Future Appointments Appointment Date:06/26/2022 11:15:00 AM Scheduled Provider:Gerald Pham MD Location:[facility] [place] Appointment Type:Pain Management - Workmans Comp [facility] Future Appointments Appointment Date:02/21/2023 03:15:00 PM Scheduled Provider:Nyasia Helton PA-C Location:[facility] [place] Appointment Type:Pain Management - Follow Up ([place]) [facility] note* Diagnosis Bilateral hand swelling- Primary Psoriasis Other psoriasis documented in this encounter [facility] note* Diagnosis 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 Medication monitoring encounter Encounter for therapeutic drug monitoring documented in this encounter [facility] note* Diagnosis Psoriasis- Primary Other psoriasis Intertrigo Other specified erythematous condition documented in this encounter [facility] note* Diagnosis Seropositive rheumatoid arthritis (HCC)- Primary Rheumatoid arthritis Medication monitoring encounter Encounter for therapeutic drug monitoring documented in this encounter [facility] note* Diagnosis Seropositive rheumatoid arthritis (HCC)- Primary Rheumatoid arthritis Medication monitoring encounter Encounter for therapeutic drug monitoring documented in this encounter [facility] course Narrative No data available for this section [facility] Dis[facility] instructions No data available for this section [facility] No data available for this section [facility] Reason for Referral Specialty Diagnoses / Procedures Referred By Juan Antonio black Referred To Contact Dermatology Diagnoses Psoriasis Procedures CONSULT TO DERMATOLOGY OFFICE/OUTPATIENT [facility] 60-74 MINUTES John Liz MD [address] [place] [address] Referral ID Status Reason Start Date Expiration Date Visits Requested Visits Authorized [id number] Authorized PCP Requested Referral 06/24/2022 06/24/2023 1 1 Specialty Diagnoses / Procedures Referred By Contac t Referred To Contact XR IMAGING Diagnoses Bilateral hand swelling Procedures XR FOOT GENERAL 3V AP/LAT/OBL BILATERAL RADEX FOOT COMPLETE MINIMUM 3 [place] [address] Xr Imaging Referral ID Status Reason Start Date Expiration Date V isits Requested Visits Authorized [id number] Closed Auto-Generate d Referral 06/24/2022 07/24/2023 1 1 Specialty Diagnoses / Procedures Referred By Contac t Referred To Contact XR IMAGING Diagnoses Bilateral hand swelling Procedures XR HAND/WRIST SURVEY ARTHRITIS 1V PA BILATERAL JOINT SURVEY SINGLE VIEW 2 OR MORE JOINTS John Liz MD [address] [id number] Xr Imaging Referral ID Status Reason Start Date Expiration Date V isits Requested Visits Authorized [id number] Closed Auto-Generate d Referral 06/24/2022 07/24/2023 1 1 Summary Purpose Family History No Family History Records Found No data available for this section No data available for this section No Family History Records FoundNo Family History Records Found Advance Directives No Advanced Directives Records FoundNo Advanced Directives Records FoundNo Advanced Directives Records Found Additional Source Comments Care Team (unrecognized sect ion and content) [employer] Relationship Specialty Start Date End Date Eula Tyler [address] [facility] [address] [place] [address] PCP - General Family Medicine 06/21/22 Eula Tyler [address] [facility] [address] [place] [address] Referring Family Medicine 06/21/22 [employer]z [employer]er Relationship Specialty Start Date End Date Eula Tyler [address] [facility] [address] [place] [address] PCP - General Family Medicine 06/21/22 Eula Tyler [address] [facility] [address] [place] [address] Referring Family Medicine 06/21/22 [employer]z [employer]er Relationship Specialty Start Date End Date Eula Tyler [address] [place] [address] [place] [address] PCP - General Family Medicine 06/21/22 Eula Tyler [address] [place] [address] [place] [address] Referring Family Medicine 06/21/22 [employer]z [employer]er Relationship Specialty Start Date End Date Eula Tyler [address] [place] [address] [place] [address] PCP - General Family Medicine 06/21/22 Eula Tyler [address] [facility] [address] [place] [address] Referring Family Medicine 06/21/22 [employer]er Relationship Specialty Start Date End Date Eula Tyler [address] [place] [address] [place] [address] PCP - General Family Medicine 06/21/22 Eula Tyler [address] [place] [address] [place] [address] Referring Family Medicine 06/21/22 [employer]er Relationship Specialty Start Date End Date Eula Tyler PA [address] [address] [place] [address] PCP - General Family Medicine 06/21/22 Eula Tyler PA [address] [place] [address] [place] [address] Referring Family Medicine 06/21/22 [employer]z [employer]er Relationship Specialty Start Date End Date Eula Tyler PA [address] [place] [address] [place] [address] PCP - General Family Medicine 06/21/22 Eula Tyler PA [address] [place] [address] [place] [address] Referring Family Medicine 06/21/22 [employer]z [employer]er Relationship Specialty Start Date End Date Eula Tyler PA [address] [address] [place] [address] PCP - General Family Medicine 06/21/22 Eula Tyler PA [address] [address] [place] [address] Referring Family Medicine 06/21/22 [employer]z [employer]er Relationship Specialty Start Date End Date Eula Tyler PA [address] [address] [place] [address] PCP - General Family Medicine 06/21/22 Eula Tyler PA [address] [place] [address] [place] [address] Referring Family Medicine 06/21/22 [employer]z [employer]er Relationship Specialty Start Date End Date Adán Lala MD [address] [place] [phone] PCP - General Family Medicine 01/17/23 Eula Tyler PA [address] [facility] [address] [place] [address] Referring Family Medicine 06/21/22 Source Comments (unrecognize d section and content) In the event this informatio n is protected by the Federal Confidentiality of Alcohol and Drug Abuse Patient Records regulations: The Federal rules restrict any use of the information to criminally investigate or prosecute any alcohol or drug abuse patient.[facility] the event this information is protected by the Federal Confidentiality of Alcohol and Drug Abuse Patient Records regulations: The Federal rules restrict any use of the information to criminally investigate or prosecute any alcohol or drug abuse patient.[facility] the event this information is protected by the Federal Confidentiality of Alcohol and Drug Abuse Patient Records regulations: The Federal rules restrict any use of the information to criminally investigate or prosecute any alcohol or drug abuse patient.[facility] the event this information is protected by the Federal Confidentiality of Alcohol and Drug Abuse Patient Records regulations: The Federal rules restrict any use of the information to criminally investigate or prosecute any alcohol or drug abuse patient.[facility] the event this information is protected by the Federal Confidentiality of Alcohol and Drug Abuse Patient Records regulations: The Federal rules restrict any use of the information to criminally investigate or prosecute any alcohol or drug abuse patient.[facility] the event this information is protected by the Federal Confidentiality of Alcohol and Drug Abuse Patient Records regulations: The Federal rules restrict any use of the information to criminally investigate or prosecute any alcohol or drug abuse patient.[facility] the event this information is protected by the Federal Confidentiality of Alcohol and Drug Abuse Patient Records regulations: The Federal rules restrict any use of the information to criminally investigate or prosecute any alcohol or drug abuse patient.[facility] the event this information is protected by the Federal Confidentiality of Alcohol and Drug Abuse Patient Records regulations: The Federal rules restrict any use of the information to criminally investigate or prosecute any alcohol or drug abuse patient.[facility] Hospital[facility] the event this information is protected by the Federal Confidentiality of Alcohol and Drug Abuse Patient Records regulations: The Federal rules restrict any use of the information to criminally investigate or prosecute any alcohol or drug abuse patient.[facility] Hospital[facility] the event this information is protected by the Federal Confidentiality of Alcohol and Drug Abuse Patient Records regulations: The Federal rules restrict any use of the information to criminally investigate or prosecute any alcohol or drug abuse patient.[facility] Reason for Visit (unrecogniz ed section and content) Reason Comments New Patient Reason Comments Results Reason Comments Full Body Skin Check Psoriasis/ blisters sparatic on the body Reason Comments Established Patient Reason Comments Medication Problem Reason Comments Patient Update Bruising Reason Comments Refill Request Reason Comments Patient Question INFORMATION SOURCE (unrecogn ized section and content) DATE CREATED AUTHOR 06/27/2022 [facility] DATE CREATED AUTHOR AUTHOR'S ORGANIZ ATION 02/22/2023 [facility] DATE CREATED AUTHOR AUTHOR'S ORGANIZ ATION 03/11/2023 [facility] FOR RECORDS PERTAINING TO PATIENTS WHO ARE [...] BE BASED ON THE PRIMARY CLINICAL RECORDS. [facility]. provides no warranty or guarantee of the accuracy or completeness of information in this document.
[2023-03-12] MEDS: 0.9 % SODIUM CHLORIDE 500 ML, LIDOCAINE HCL 20 ML, SODIUM BICARBONATE 10 MEQ INJ (10:46)
[2023-03-12] MEDS: LIDOCAINE HCL 1% 100 MG/10 ML MDV INJ (10:48)
== END 2023-03-12 10:10 | disposition home or self-care (01) ==
LOC: VC 10:09
PROVIDERS: PCP Radiology Diagnostic Radiology; Visit Provider Radiology Diagnostic Radiology
DX: I83.813 Varicose veins of bilateral lower extremities with pain (principal)
CPT/HCPCS: 36478

== ENCOUNTER 2023-03-17 13:37 | Outpatient (OUT) | payer MEDICARE, MEDICAID, SELFPAY ==
--- NOTE | 2023-03-17 13:41 | VEIN_ITS ---
Patient Name: DAVION HUMPHREYS MR#: [id number] : 1955 Exam Date: 03/17/2023 Ordering Doctor: DR JAMIR SPRAGUE M.D. RADIOLOGY REPORT PROCEDURE: [facility] FACILITY EST LMTD VEIN CENTER - OFFICE VISIT FOLLOW UP COMPARISON: None. PROGRESS NOTES: The patient reports no significant problems following intravenous laser ablation of the right great saphenous vein. The patient has worn her compression stocking. The patient did not require oral analgesics. The patient has tried exercise some. Physical exam demonstrates no bruising. The incision is sealed. No erythema or warmth. The thrombosed right great saphenous vein can be partially palpated. No active ulceration Review of the ultrasound performed the same day demonstrates occlusive thrombus extending throughout the treated right great saphenous vein with heat induced thrombus 1.8 cm from the saphenofemoral junction. No deep vein thrombus. The patient expressed a desire to proceed with treatment of incompetent left great saphenous vein. VEIN/ Facility EST LMTD IMPRESSION: 1. Successful ablation of the right great saphenous vein 2. Persistent incompetent left great saphenous vein. PLAN: Intravenous laser ablation left great saphenous vein Nurse notes, history and physical were reviewed and confirmed, see attached forms. The nurse was present throughout the physical exam and consultation Dictated by: Jamir Sprague MD on 03/17/2023 at 14:14 Approved by: Jamir Sprague MD on 03/17/2023 at 14:15
--- NOTE | 2023-03-17 13:41 | VEIN_ITS ---
Patient Name: DAVION HUMPHREYS MR#: [id number] : 1955 Exam Date: 03/17/2023 Ordering Doctor: DR JAMIR SPRAGUE M.D. RADIOLOGY REPORT PROCEDURE: VC EXT VENOUS RT LMTD COMPARISON: None. INDICATIONS: Phlebitis of superficial veins of right lower extremity I80.01 TECHNIQUE: Lower extremity gardner scale and Duplex Doppler evaluation of the deep venous system from the inguinal ligament through the calf veins. FINDINGS: REGION: Right lower extremity. THROMBI: Negative for DVT. Heat induced thrombus in right GSV 1.8 cm from SFJ and extends to medial knee. COMPRESSIBILITY: Non-compressible segments corresponding to thrombus FLOW: Areas of no flow corresponding to thrombus CONCLUSION: Post ablation occlusion of the right great saphenous vein with heat induced thrombus 1.8 cm from the saphenofemoral junction Dictated by: Jamir Sprague MD on 03/17/2023 at 14:02 Approved by: Jamir Sprague MD on 03/17/2023 at 14:04
--- OUTSIDE RECORDS SUMMARY | 2023-03-17 13:48 | XMS_ITS | CCD ---
Author Name Unknown Address [address] [place] [address] Organization [facility] Care Team Providers Care Hearing Health Technician Name Role Phone Adán Lala Primary Care Physician [phone] Eula Tyler Unavailable Eula Tyler Primary Care Provider DAI Jerez, DR MCCAIN Primary Care Unavailable [...] Unavailable HOY ., DR MCCAIN Attending Unavailable [place], DR WADE Lozada Consulting Unavailable HOY ., DR MCCAIN Consulting Unavailable HOY ., DR MCCAIN Primary Care Unavailable HOY ., DR MCCAIN Admitting Unavailable HOY ., DR MCCAIN Attending Unavailable YESENIA, DR SOFIE Shepherd Consulting Unavailable Eula Tyler Unavailable Eula Tyler Primary Care Provider [phone] Eula Vital Unavailable [phone] Eula Vital Primary Care Provider Adán Lala MD Primary Care Provider [phone] Felice Phamry Admitting Unavailable Zumbar Gerald Attending [...] Codeine; Translations: [CODEINE] Drug Allergy 06-27-2022 [facility] Repository (8 sources) Codeine Drug Allergy 06-27-2022 GI Upset [facility] Medications Current Medications Medication Drug Class(es) Dates [...] Start: 12-19-2022 take 2 tablets by mo [facility] once daily predniSONE (DELTASONE) 5 mg tablet [...] ESTHER EVERY DAY Take 2 tablets by [facility] once daily. pregabalin 50 mg oral capsule (1 source) Start: 02-21-2023 End: 03-23-2023 take 1 capsule by mouth twice daily pregabalin 50 mg Cap 50 mg = 1 cap(s), Oral, BID, X 30 day(s), # 60 cap(s), Refills(s) 0, Pharmacy: [facility]/pharmacy #[id number], 158, cm, 02/21/23 15:08:00 EST, Height/Length [...] TWICE DAILY FOR SKIN FOLDS triamcinolone acetonide 0.00448 mg/mg topical ointment (8 sources) Corticosteroid Start: [...] Test Name Value Interpretation Reference Range Facility [facility] 03-10-2023 CNOV Office Visit (DERMMN ) SHELLY WILSON ([id number]) 1955 F Date Time Provider Department 03/10/23 11:00 AM YANNA MILLER DERMMN During your visit today, we recorded the following information about you: Yanna Millre MD 03/10/2023 1:55 PM Signed Established patient [...] on the intergluteal cleft, buttocks, dorsal hands [place] macerated plaques on the abdominal pannus A/P: [...] mouth once (more content not included)... [facility] 03-10-2023 CNPN Telephone (DERMMN) SHELLY WILSON ([id number]) 1955 F Date Time Provider Department 03/10/23 YANNA MILLER During your visit today, we recorded the following information about you: Richi Blanc 03/10/2023 2:14 PM Signed I have sent PA form to [facility] for patients VTAMA. Sent electronically through [employer] DX used L40.9 Sims: [id number] Richi Blanc 03/10/2023 4:27 PM Signed Received DENIAL from insurance provider for coverage of patient's VTAMA prescription. Uploading document to chart. Reasoning: Patient would require one more medication trial from this list to qualify. Yanna Miller MD 03/11/2023 8:55 AM Signed Please write a letter of medical necessity explaining that the patient has intertriginous psoriasis and topical steroids would not be appropriate due to the risk of atrophy and tazarotene would not be appropriate due to the risk of irritation Hallie Alvarez 03/11/2023 10:59 AM Signed Patient called to see why her Vtama was not sent to the pharmacy. Advised patient, it needed a prior authorization and we are working on the appeal right now. Hallie Stallings 03/11/2023 1:46 PM Signed Faxed appeal with letter of necessity to [facility] @ [phone] Richi Blanc 03/13/2023 8:46 AM Signed Received APPROVAL for patient's VTAMA Document uploaded to chart. Dates reflect: 03/10/2023 until further notice Informing patient of approval through [employer]. Allergies As of Date: 03/10/2023 Noted Allergy Reaction CODEINE 06/27/2022 8 - GI Upset Date Reviewed: 03/10/2023 Reviewed by: Mariah Rebolledo RN - Fully Assessed Reason for Visit: Insurance Authorization [[id number]] Prescriptions as of 03/13/2023 - tapinarof (VTAMA) 1 % cream Apply [...] mouth three times daily as needed. - HYDROcodone-acetaminop hen (NORCO) 5-325 mg per tablet Take 1 tablet by mouth every 8 hours as needed for pain. prn Problem List As Of Date: 03/10/2023 (None) Encounter Status:Closed by HALLIE STALLINGS on 03/11/23 [facility] Consent for Treatmenton Consent for Treatment [id number]#1. 00TIFF Normal [facility] Consultation Noteon 01-05-20 24 Consultation Note Patient: SHELLY HUMPHREYS Age: 67 [...] that she rates a 4/10. She has [place] given to her by her PCP. She [...] day(s), # 60 cap(s), Refills(s) 0, Pharmacy: [facility]/pharmacy #[id number], 158, cm, 02/21/23 15:08:00 EST, Height/Length Dosing, [...] list: All Problems Hyperlipidemia / SNOMED CT 47684050 / Confirmed Hypertension / SNOMED CT 4227429023 / Confirmed Obesity / SNOMED CT 7946238964 / Confirmed Smoker / SNOMED CT 745100160 / Confirmed History of osteoarthritis / SNOMED CT 398466568 / Confirmed Resolved: Ganglion cyst of right wrist / SNOMED CT 645868599665351 Objective Measurements from flowsheet : Measurements 02/21/2023 [...] 5/5 lower extremity strength Integumentary: Warm, Dry, [place]. Injection site well-healed Neurologic: Alert, Oriented. Psychiatric: Cooperative, Appropriate mood & affect. Impression and Plan Patient is a 67-year-old female with a past medical history significant for a [employer] claim. The approved diagnosis codes are lumbosacral [...] injections. She is going to continue on [place] given to her by her PCP. She is going to start Lyrica 50 mg twice daily. Potential side effects were discussed. How to use the medication was discussed. OARRS was reviewed. COLLETTE score: 46%. Follow-up in 1 month. [facility] Comment on above: Result Comment: Elec tronically Signed By: Nyasia Helton PA-C\.br\Date and Time Signed: 02/21/23 15:28 EST Legal Correspondence Officeo n 02-21-2023 Legal Correspondence Office [id number]#1.0 0TIFF Normal [facility] Office/Clinic Note-Physician on 02-21-2023 Office/Clinic Note-Physician [id number]#1.0 0TIFF [facility] Patient Correspondenceon Patient Correspondence [id number]#1.0 0TIFF [facility] Patient Correspondence [id number]#1.0 0TIFF [facility] Patient Correspondence [id number]#1.0 0TIFF [facility] Patient Correspondence [id number]#1.0 0TIFF [facility] Patient History Officeon Patient History Office [id number]#1.0 0TIFF [facility] Operative Reporton 3 Operative Report Patient: [...] Correction: Diagnosis: spinal stenosis, lumbosacral region Normal [facility] Comment on above: Result Comment: Elec tronically Signed By: Neeraj HUDSON, Barry Means.br\Date and Time Signed: 01/28/23 12:16 EST QUIQUEOVon 01-22-2023 CNOV Office Visit (DARNELL ) SHELLY WILSON ([id number]) 1955 F Date Time Provider Department 01/22/23 [...] showing osteoarthritis. Dr Lala her PCP from [facility] in [place] prescribed prednisone 40 mg/d x 5. Reduced [...] See ophthalmology (more content not included)... [facility] Consent for Procedure/Surger yon 01-20-2023 Consent for Procedure/Surgery [id number]#1. 00TIFF [facility] Consent for Treatmenton - Consent for Treatment [id number]#1.0 0TIFF [facility] Discharge Instructionson Discharge Instructions [id number]#1. 00TIFF [facility] IntraOperative Documentson 1 03-23-2022 IntraOperative Documents [id number]#1. 00TIFF [facility] Main OR Intraoperative Recor don 01-20-2023 Main OR Intraoperative Record IntraOp Document Type FTPM Summary Primary Physician: Barry Pickard MD Finalized Date/Time: 01/20/23 13:46:44 Pt. Name: SHELLY HUMPHREYS/Sex: 1955 Female Med Rec #: [id number] Physician: Barry Pickard MD Financial #: [id number] Pt. Type: P Room/Bed: / Admit/Disch: 12/04/23 13:21:57 - Institution: Case Times FTPM Entry 1 Patient Times In Room 01/20/23 13:40:00 Out Room 01/20/23 13:46:00 Procedure Times Start 01/20/23 13:43:00 Stop 01/20/23 13:45:00 Anesthesia Times Last Modified By: Padmini Morejon RN 01/20/23 13:46:05 Case Attendance FTPM Entry 1 Entry 2 Entry 3 Case Attendee Neeraj HUDSON, Barry Morejon RN, Padmini Hernandez RN, Addis Perez Role Performed Surgeon - Primary Regional Owner Operator Truck Driver - Primary Scrub - Primary Time In 01/20/23 13:40:00 01/20/23 13:40:00 01/20/23 13:40:00 Time Out 01/20/23 13:46:00 01/20/23 13:46:00 01/20/23 13:46:00 Procedure TRANSFORAMINAL EPIDURAL TRANSFORAMINAL EPIDURAL TRANSFORAMINAL EPIDURAL STEROID STEROID STEROID INJECTIO(Bilateral) INJECTIO(Bilateral) INJECTIO(Bilateral) Comments Last Modified By: Jean-Pierre ROSE, Padmini Morejon RN, Padmini Jimenez RN 01/20/23 13:46:06 01/20/23 13:46:06 01/20/23 13:46:06 Entry 4 Case Attendee Shannon Christian (R) Role Performed Company Marker Time In 01/20/23 13:40:00 Time Out 01/20/23 [...] Padmini Morejon RN, Given Participants Mary ROSE, Addis Perez, Neeraj HUDSON, Jessy Aaron(R), Shannon Time Out Complete 01/20/23 13:40:00 Outcomes Met? [...] L5 TFESI Primary Procedure Yes Primary Surgeon Neeraj HUDSON, Barry Medina Start 01/20/23 13:43:00 Stop 01/20/23 13:45:00 Anesthesia [...] and tissue Entry 1 Skin Integrity Intact, [place], Warm, and Skin Abnormality No Dry Outcomes [...] Safety Strap, (more content not included)... Normal [facility] Main OR Preoperative Recordo n 01-20-2023 Main OR Preoperative Record Holding Area Document Type FTPM Summary Primary Physician: Barry Pickard MD Finalized Date/Time: 01/20/23 13:38:50 Pt. Name: SHELLIELouisSHELLY./Sex: 1955 Female Med Rec #: [id number] Physician: Barry Pickard MD Financial #: [id number] Pt. Type: P Room/Bed: / Admit/Disch: 01/20/23 [...] Complaints of Pain: Yes Comment: Pain Comment: 5/10 to lower legs and Operative Site Yes [...] By: Suzette Ferrer RN 01/20/23 13:38 Normal [facility] CBC W Auto Differential pane l (Bld)on 01-17-2023 Basophils (Bld) [#/Vol] 0.12 10*3/uL High <0.11 [facility] Comment on above: Order Comment: Speci men Type: BLOOD SPECIMENOrdering Facility: [facility] Address: [address] [place] [address] Performed By: #### 5 7021-8 ####[facility] LABCLIA [id number] [place] [address] Basophils/100 WBC (Bld) 0.8 % [facility] Comment on above: Order Comment: Speci men Type: BLOOD SPECIMENOrdering Facility: [facility] Address: [address] [place] [address] Performed By: #### 5 7021-8 ####[facility] LABCLIA [id number] [place] [address] Differential cell count method Nom (Bld) Auto [facility] Comment on above: Order Comment: Speci men Type: BLOOD SPECIMENOrdering Facility: [facility] Address: [address] [place] [address] Performed By: #### 5 7021-8 ####[facility] LABCLIA [id number] [place] [address] Eosinophils (Bld) [#/Vol] 0.17 10*3/uL Normal <0.46 [facility] Comment on above: Order Comment: Speci men Type: BLOOD SPECIMENOrdering Facility: [facility] Address: [address] [place] [address] Performed By: #### 5 7021-8 ####[facility] LABCLIA [id number] [place] [address] Eosinophils/100 WBC (Bld) 1.1 % [facility] Comment on above: Order Comment: Speci men Type: BLOOD SPECIMENOrdering Facility: [facility] Address: [address] [place] [address] Performed By: #### 5 7021-8 ####[facility] LABCLIA [id number] [place] [address] Erythrocyte distribution width (RBC) [Ratio] 13.2 % Normal 11.5-15.0 [facility] Comment on above: Order Comment: Speci men Type: BLOOD SPECIMENOrdering Facility: [facility] Address: [address] [place] [address] Performed By: #### 5 7021-8 ####[facility] LABCLIA [id number] [place] [address] Hematocrit (Bld) [Volume fraction] 44.1 % Normal 36.0-46.0 [facility] Comment on above: Order Comment: Speci men Type: BLOOD SPECIMENOrdering Facility: [facility] Address: [address] [place] [address] Performed By: #### 5 7021-8 ####[facility] LABCLIA [id number] [place] [address] Hemoglobin (Bld) [Mass/Vol] 14.4 g/dL Normal 11.5-15.5 [facility] Comment on above: Order Comment: Speci men Type: BLOOD SPECIMENOrdering Facility: [facility] Address: [address] [place] [address] Performed By: #### 5 7021-8 ####[facility] LABCLIA [id number] [place] [address] Immature granulocytes (Bld) [#/Vol] 0.12 10*3/uL High <0.10 [facility] Comment on above: Order Comment: Speci men Type: BLOOD SPECIMENOrdering Facility: [facility] Address: [address] [place] [address] Performed By: #### 5 7021-8 ####[facility] LABCLIA [id number] [place] [address] Immature granulocytes/100 WBC (Bld) 0.8 % [facility] Comment on above: Order Comment: Speci men Type: BLOOD SPECIMENOrdering Facility: [facility] Address: [address] [place] [address] Performed By: #### 5 7021-8 ####[facility] LABCLIA [id number] [place] [address] Lymphocytes (Bld) [#/Vol] 2.38 10*3/uL Normal 1.00-4.00 [facility] Comment on above: Order Comment: Speci men Type: BLOOD SPECIMENOrdering Facility: [facility] Address: [address] [place] [address] Performed By: #### 5 7021-8 ####[facility] LABCLIA [id number] [place] [address] Lymphocytes/100 WBC (Bld) 15.3 % Normal [facility] Comment on above: Order Comment: Speci men Type: BLOOD SPECIMENOrdering Facility: [facility] Address: [address] [place] [address] Performed By: #### 5 7021-8 ####[facility] LABCLIA [id number] [place] [address] MCH (RBC) [Entitic mass] 31.4 pg Normal 26.0-34.0 [facility] Comment on above: Order Comment: Speci men Type: BLOOD SPECIMENOrdering Facility: [facility] Address: [address] [place] [address] Performed By: #### 5 7021-8 ####[facility] LABCLIA [id number] [place] [address] MCHC (RBC) [Mass/Vol] 32.7 g/dL Normal 30.5-36.0 [facility] Comment on above: Order Comment: Speci men Type: BLOOD SPECIMENOrdering Facility: [facility] Address: [address] [place] [address] Performed By: #### 5 7021-8 ####[facility] LABCLIA [id number] [place] [address] MCV (RBC) [Entitic vol] 96.3 fL Normal 80.0-100.0 [facility] Comment on above: Order Comment: Speci men Type: BLOOD SPECIMENOrdering Facility: [facility] Address: [address] [place] [address] Performed By: #### 5 7021-8 ####[facility] LABCLIA [id number] [place] [address] Monocytes (Bld) [#/Vol] 1.19 10*3/uL High <0.87 [facility] Comment on above: Order Comment: Speci men Type: BLOOD SPECIMENOrdering Facility: [facility] Address: [address] [place] [address] Performed By: #### 5 7021-8 ####[facility] LABCLIA [id number] [place] [address] Monocytes/100 WBC (Bld) 7.7 % Normal [facility] Comment on above: Order Comment: Speci men Type: BLOOD SPECIMENOrdering Facility: [facility] Address: [address] [place] [address] Performed By: #### 5 7021-8 ####[facility] LABCLIA [id number] [place] [address] Neutrophils (Bld) [#/Vol] 11.55 10*3/uL High 1.45-7.50 [facility] Comment on above: Order Comment: Speci men Type: BLOOD SPECIMENOrdering Facility: [facility] Address: [address] [place] [address] Performed By: #### 5 7021-8 ####[facility] LABCLIA [id number] [place] [address] Neutrophils/100 WBC (Bld) 74.3 % Normal [facility] Comment on above: Order Comment: Speci men Type: BLOOD SPECIMENOrdering Facility: [facility] Address: [address] [place] [address] Performed By: #### 5 7021-8 ####[facility] LABCLIA [id number] [place] [address] Nucleated RBC (Bld) [#/Vol] 10*3/uL Normal <0.01 [facility] Comment on above: Order Comment: Speci men Type: BLOOD SPECIMENOrdering Facility: [facility] Address: [address] [place] [address] Performed By: #### 5 7021-8 ####[facility] LABCLIA [id number] [place] [address] Nucleated RBC/100 WBC (Bld) [Ratio] 0.0 /100 WBC Normal [facility] Comment on above: Order Comment: Speci men Type: BLOOD SPECIMENOrdering Facility: [facility] Address: [address] [place] [address] Performed By: #### 5 7021-8 ####[facility] LABCLIA [id number] [place] [address] Platelet mean volume (Bld) [Entitic vol] 8.8 fL Low 9.0-12.7 [facility] Comment on above: Order Comment: Speci men Type: BLOOD SPECIMENOrdering Facility: [facility] Address: [address] [place] [address] Performed By: #### 5 7021-8 ####[facility] LABCLIA [id number] [place] [address] Platelets (Bld) [#/Vol] 413 10*3/uL High 150-400 [facility] Comment on above: Order Comment: Speci men Type: BLOOD SPECIMENOrdering Facility: [facility] Address: [address] [place] [address] Performed By: #### 5 7021-8 ####[facility] LABCLIA [id number] [place] [address] RBC (Bld) [#/Vol] 4.58 10*6/uL Normal 3.90-5.20 [facility] Comment on above: Order Comment: Speci men Type: BLOOD SPECIMENOrdering Facility: [facility] Address: [address] [place] [address] Performed By: #### 5 7021-8 ####[facility] LABIA [id number] [place] [address] WBC (Bld) [#/Vol] 15.53 10*3/uL High 3.70-11.00 [facility] Comment on above: Order Comment: Speci men Type: BLOOD SPECIMENOrdering Facility: [facility] Address: [address] [place] [address] Performed By: #### 5 7021-8 ####[facility] LABIA [id number] [place] [address] Comprehensive metabolic 2000 panelon 01-17-2023 Albumin [Mass/Vol] 4.5 g/dL Normal 3.9-4.9 [facility] Comment on above: Order Comment: Speci men Type: BLOOD SPECIMENOrdering Facility: [facility] Address: [address] [place] [address] Performed By: #### 2 4323-8 ####[facility] LABCLIA [id number] [place] [address] ALP [Catalytic activity/Vol] 75 U/L Normal 34-123 [facility] Comment on above: Order Comment: Speci men Type: BLOOD SPECIMENOrdering Facility: [facility] Address: [address] [place] [address] Performed By: #### 2 4323-8 ####[facility] LABCLIA [id number] [place] [address] ALT [Catalytic activity/Vol] 12 U/L Normal 7-38 [facility] Comment on above: Order Comment: Speci men Type: BLOOD SPECIMENOrdering Facility: [facility] Address: [address] [place] [address] Performed By: #### 2 4323-8 ####[facility] LABCLIA [id number] [place] [address] Anion gap [Moles/Vol] 9 mmol/L Normal 9-18 [facility] Comment on above: Order Comment: Speci men Type: BLOOD SPECIMENOrdering Facility: [facility] Address: [address] [place] [address] Performed By: #### 2 4323-8 ####[facility] LABCLIA [id number] [place] [address] AST [Catalytic activity/Vol] 17 U/L Normal 13-35 [facility] Comment on above: Order Comment: Speci men Type: BLOOD SPECIMENOrdering Facility: [facility] Address: [address] [place] [address] Performed By: #### 2 4323-8 ####[facility] LABCLIA [id number] [place] [address] Bilirubin [Mass/Vol] 0.4 mg/dL Normal 0.2-1.3 [facility] Comment on above: Order Comment: Speci men Type: BLOOD SPECIMENOrdering Facility: [facility] Address: [address] [place] [address] Performed By: #### 2 4323-8 ####[facility] LABCLIA [id number] [place] [address] Calcium [Mass/Vol] 9.6 mg/dL Normal 8.5-10.2 [facility] Comment on above: Order Comment: Speci men Type: BLOOD SPECIMENOrdering Facility: [facility] Address: [address] [place] [address] Performed By: #### 2 4323-8 ####[facility] LABCLIA [id number] [place] [address] Chloride [Moles/Vol] 101 mmol/L Normal 97-105 [facility] Comment on above: Order Comment: Speci men Type: BLOOD SPECIMENOrdering Facility: [facility] Address: [address] [place] [address] Performed By: #### 2 4323-8 ####[facility] LABCLIA [id number] [place] [address] CO2 [Moles/Vol] 28 mmol/L Normal 22-30 [facility] Comment on above: Order Comment: Speci men Type: BLOOD SPECIMENOrdering Facility: [facility] Address: [address] [place] [address] Performed By: #### 2 4323-8 ####[facility] LABCLIA [id number] [place] [address] Creatinine [Mass/Vol] 0.67 mg/dL Normal 0.58-0.96 [facility] Comment on above: Order Comment: Speci men Type: BLOOD SPECIMENOrdering Facility: [facility] Address: [address] [place] [address] Performed By: #### 2 4323-8 ####[facility] LABCLIA [id number] [place] [address] Creatinine and Glomerular filtration rate.predicted panel (S/P/Bld) 96 mL/min/1.73m??? Normal >=60 [facility] Comment on above: Order Comment: Speci men Type: BLOOD SPECIMENOrdering Facility: [facility] Address: [address] [place] [address] Result Comment: Carmen mated Glomerular Filtration Rate [...] actual GFR. Performed By: #### 2 4323-8 ####[facility] LABCLIA [id number] [place] [address] Glucose [Mass/Vol] 104 mg/dL High 74-99 [facility] Comment on above: Order Comment: Speci men Type: BLOOD SPECIMENOrdering Facility: [facility] Address: [address] [place] [id number] Result Comment: The [place] [employer] (ADA) provides guidance for cutoff [...] Standards of Medical Care in Diabetes 2016, [place] [employer]. Diabetes Care. 2016.39(Suppl 1). Performed By: #### 2 4323-8 ####[facility] LABCLIA [id number] [place] [address] Potassium [Moles/Vol] 4.1 mmol/L Normal 3.7-5.1 [facility] Comment on above: Order Comment: Speci men Type: BLOOD SPECIMENOrdering Facility: [facility] Address: [address] [place] [address] Performed By: #### 2 4323-8 ####[facility] LABCLIA [id number] [place] [address] Protein [Mass/Vol] 6.9 g/dL Normal 6.3-8.0 [facility] Comment on above: Order Comment: Speci men Type: BLOOD SPECIMENOrdering Facility: [facility] Address: [address] [place] [address] Performed By: #### 2 4323-8 ####[facility] LABCLIA [id number] [place] [address] Sodium [Moles/Vol] 138 mmol/L Normal 136-144 [facility] Comment on above: Order Comment: Speci men Type: BLOOD SPECIMENOrdering Facility: [facility] Address: [address] [place] [address] Performed By: #### 2 4323-8 ####[facility] LABCLIA [id number] [place] [address] Urea nitrogen [Mass/Vol] 11 mg/dL Normal 7-21 [facility] Comment on above: Order Comment: Speci men Type: BLOOD SPECIMENOrdering Facility: [facility] Address: [address] [place] [address] Performed By: #### 2 4323-8 ####[facility] LABCLIA [id number] [place] [address] ESR Westergren method (Bld) [Velocity]on 01-17-2023 ESR (Bld) [Velocity] 12 mm/h Normal 0-20 [facility] Comment on above: Order Comment: Speci men Type: BLOOD SPECIMENOrdering Facility: [facility] Address: [address] [place] [address] Performed By: #### 4 537-7 ####[facility] LABCLIA [id number] [place] [address] [place] Patient Correspondenceon Patient Correspondence [id number]#1.0 0TIFF Normal [facility] Workers' Comp Officeon 01-02 Workers' Comp Office [id number]#5.0 0TIFF Normal [facility] CNPSammi 11-08-2022 CNPN Telephone (DERMMN) SHAHLASHELLY Myers ([id number]) 1955 F Date Time Provider Department 11/08/22 YANNA MILLER DERMMN During your visit today, [...] Fully Assessed Reason for Visit: Patient Question [3787] Prescriptions as of 11/11/2022 - ketoconazole (NIZORAL) [...] Encounter Status:Closed by HALLIE STALLINGS [facility] 11/08/22 [facility]N Tele[facility] (DARNELL) SHELLY WILSON ([id number]) 1955 F Date Time Provider Department 10/28/22 [...] Encounter Status:Closed by LUCINDA AGARWAL on 10/29/22 [facility] 10-01-2022 CNPN Telephone (DARNELL) SHAHLASHELLY Myers ([id number]) 1955 F Date Time Provider Department 10/01/22 JOHN LIZ During your visit today, we recorded the following information about you: Liana Lynn 10/01/2022 4:14 PM Signed Pt called to let dr. Liz know since she changed how she takes her medications her feet and ankles are swelling Please call pt [phone] John Liz MD 10/02/2022 10:53 AM Signed Is she talking about steroid taper? Is she on 5 mg/d? She can try 5 mg and 10 mg every other day alternating. Higher dose of MTX will take few weeks to kick in. MD Kulwant Sandoval [place] 10/02/2022 1:24 PM Signed Lmtcb Karyn Koenig [...] Status:Closed by KARYN KOENIG on 10/02/22 Normal [facility] CBC W Auto Differential pane l (Bld)on 09-25-2022 Basophils (Bld) [#/Vol] 0.08 10*3/uL <0.11 k/uL [facility] Basophils/100 WBC (Bld) 0.4 % [facility] Differential cell count method Nom (Bld) Auto [facility] Eosinophils (Bld) [#/Vol] <0.46 k/uL [facility] Eosinophils/100 WBC (Bld) 0.1 % [facility] Erythrocyte distribution width (RBC) [Ratio] 14.6 % 11.5 - 15.0 % [facility] Hematocrit (Bld) [Volume fraction] 46.6 % High 36.0 - 46.0 % [facility] Hemoglobin (Bld) [Mass/Vol] 15.4 g/dL 11.5 - 15.5 g/dL [facility] Immature granulocytes (Bld) [#/Vol] 0.23 10*3/uL High <0.10 k/uL [facility] Immature granulocytes/100 WBC (Bld) 1.2 % [facility] Lymphocytes (Bld) [#/Vol] 1.81 10*3/uL 1.00 - 4.00 k/uL [facility] Lymphocytes/100 WBC (Bld) 9.3 % [facility] MCH (RBC) [Entitic mass] 30.8 pg 26.0 - 34.0 pg [facility] MCHC (RBC) [Mass/Vol] 33.0 g/dL 30.5 - 36.0 g/dL [facility] MCV (RBC) [Entitic vol] 93.2 fL 80.0 - 100.0 fL [facility] Monocytes (Bld) [#/Vol] 1.05 10*3/uL High <0.87 k/uL [facility] Monocytes/100 WBC (Bld) 5.4 % [facility] Neutrophils (Bld) [#/Vol] 16.19 10*3/uL High 1.45 - 7.50 k/uL [facility] Neutrophils/100 WBC (Bld) 83.6 % [facility] Nucleated RBC (Bld) [#/Vol] <0.01 k/uL [facility] Nucleated RBC/100 WBC (Bld) [Ratio] 0.0 /100 WBC [facility] Platelet mean volume (Bld) [Entitic vol] 9.4 fL 9.0 - 12.7 fL [facility] Platelets (Bld) [#/Vol] 454 10*3/uL High 150 - 400 k/uL [facility] RBC (Bld) [#/Vol] 5.00 10*6/uL 3.90 - 5.2 0 m/uL [facility] WBC (Bld) [#/Vol] 19.38 10*3/uL High 3.70 - 11 .00 k/uL [facility] Basophils (Bld) [#/Vol] 0.08 10*3/uL Normal <0.11 [facility] Comment on above: Order Comment: Speci men Type: BLOOD SPECIMENOrdering Facility: [facility] Address: [address] [place], [place] [address] Performed By: #### 5 7021-8, 4537-7 ####[facility] LABCLIA [id number] [address] [place] Basophils/100 WBC (Bld) 0.4 % Normal [facility] Comment on above: Order Comment: Speci men Type: BLOOD SPECIMENOrdering Facility: [facility] Address: [address] Performed By: #### 5 7021-8, 4536-7 ####[facility] LABCLIA [id number] [place] [address] [place] Differential cell count method Nom (Bld) Auto Normal [facility] Comment on above: Order Comment: Speci men Type: BLOOD SPECIMENOrdering Facility: [facility] Address: [address] [address] Performed By: #### 5 7021-8, 7 ####[facility] LABCLIA [id number] [place] [address] [place] Eosinophils (Bld) [#/Vol] 10*3/uL Normal <0.46 [facility] Comment on above: Order Comment: Speci men Type: BLOOD SPECIMENOrdering Facility: [facility] Address: [address] Performed By: #### 5 7021-8, 7 ####[facility] LABCLIA [id number] [address] [place] Eosinophils/100 WBC (Bld) 0.1 % Normal [facility] Comment on above: Order Comment: Speci men Type: BLOOD SPECIMENOrdering Facility: [facility] Address: [address] Performed By: #### 5 7021-8, 7 ####[facility] LABCLIA [id number] [place] [address] [place] Erythrocyte distribution width (RBC) [Ratio] 14.6 % Normal 11.5-15.0 [facility] Comment on above: Order Comment: Speci men Type: BLOOD SPECIMENOrdering Facility: [facility] Address: [address] Performed By: #### 5 7021-8, 7 ####[facility] LABIA [id number] [place] [address] [place] Hematocrit (Bld) [Volume fraction] 46.6 % High 36.0-46.0 [facility] Comment on above: Order Comment: Speci men Type: BLOOD SPECIMENOrdering Facility: [facility] Address: [address] [place] [address] Performed By: #### 5 7021-8, 453-7 ####[facility] LABIA [id number] [place] [address] [place] Hemoglobin (Bld) [Mass/Vol] 15.4 g/dL Normal 11.5-15.5 [facility] Comment on above: Order Comment: Speci men Type: BLOOD SPECIMENOrdering Facility: [facility] Address: [address] [place] [address] Performed By: #### 5 7021-8, 453-7 ####[facility] LABIA [id number] [place] [address] [place] Immature granulocytes (Bld) [#/Vol] 0.23 10*3/uL High <0.10 [facility] Comment on above: Order Comment: Speci men Type: BLOOD SPECIMENOrdering Facility: [facility] Address: [address] [place], [place] [address] Performed By: #### 5 7021-8, 7 ####[facility] LABIA [id number] [place] [address] [place] Immature granulocytes/100 WBC (Bld) 1.2 % Normal [facility] Comment on above: Order Comment: Speci men Type: BLOOD SPECIMENOrdering Facility: [facility] Address: [address] [place], [place] [address] Performed By: #### 5 7021-8, 7-7 ####[facility] LABIA [id number] [place] [address] [place] Lymphocytes (Bld) [#/Vol] 1.81 10*3/uL Normal 1.00-4.00 [facility] Comment on above: Order Comment: Speci men Type: BLOOD SPECIMENOrdering Facility: [facility] Address: [address] [place] [address] Performed By: #### 5 7021-8, 4537-7 ####[facility] LABCLIA [id number] [address] [facility] Lymphocytes/100 WBC (Bld) 9.3 % Normal [facility] Comment on above: Order Comment: Speci men Type: BLOOD SPECIMENOrdering Facility: [facility] Address: [address] [place] [address] Performed By: #### 5 7021-8, 4537-7 ####[facility] LABCLIA [id number] [address] STATES OF [facility] MCH (RBC) [Entitic mass] 30.8 pg Normal 26.0-34.0 [facility] Comment on above: Order Comment: Speci men Type: BLOOD SPECIMENOrdering Facility: [facility] Address: [address] [place], [place] [address] Performed By: #### 5 7021-8, 4537-7 ####[facility] LABIA [id number] [place] [address] [place] MCHC (RBC) [Mass/Vol] 33.0 g/dL Normal 30.5-36.0 [facility] Comment on above: Order Comment: Speci men Type: BLOOD SPECIMENOrdering Facility: [facility] Address: [address] [place], [place] [address] Performed By: #### 5 7021-8, 4537-7 ####[facility] LABCLIA [id number] [address] [place] MCV (RBC) [Entitic vol] 93.2 fL Normal 80.0-100.0 [facility] Comment on above: Order Comment: Speci men Type: BLOOD SPECIMENOrdering Facility: [facility] Address: [address] [place], [place] [address] Performed By: #### 5 7021-8, 4536-7 ####[facility] LABCLIA [id number] [place] [address] [place] Monocytes (Bld) [#/Vol] 1.05 10*3/uL High <0.87 [facility] Comment on above: Order Comment: Speci men Type: BLOOD SPECIMENOrdering Facility: [facility] Address: [address] [place] [address] Performed By: #### 5 7021-8, 4536-7 ####[facility] LABCLIA [id number] [place] [address] [place] Monocytes/100 WBC (Bld) 5.4 % Normal [facility] Comment on above: Order Comment: Speci men Type: BLOOD SPECIMENOrdering Facility: [facility] Address: [address] [place], [place] [address] Performed By: #### 5 7021-8, 7 ####[facility] LABCLIA [id number] [place] [address] [place] Neutrophils (Bld) [#/Vol] 16.19 10*3/uL High 1.45-7.50 [facility] Comment on above: Order Comment: Speci men Type: BLOOD SPECIMENOrdering Facility: [facility] Address: [address] [place], [place] [address] Performed By: #### 5 7021-8, 4536-7 ####[facility] LABCLIA [id number] [place] [address] [place] Neutrophils/100 WBC (Bld) 83.6 % Normal [facility] Comment on above: Order Comment: Speci men Type: BLOOD SPECIMENOrdering Facility: [facility] Address: [address] Performed By: #### 5 7021-8, 4536-7 ####[facility] LABIA [id number] [place] [address] [place] Nucleated RBC (Bld) [#/Vol] 10*3/uL Normal <0.01 [facility] Comment on above: Order Comment: Speci men Type: BLOOD SPECIMENOrdering Facility: [facility] Address: [address] Performed By: #### 5 7021-8, 4536-7 ####[facility] LABIA [id number] [place] [address] [place] Nucleated RBC/100 WBC (Bld) [Ratio] 0.0 /100 WBC Normal [facility] Comment on above: Order Comment: Speci men Type: BLOOD SPECIMENOrdering Facility: [facility] Address: [address] [place], [place] [address] Performed By: #### 5 7021-8, 7 ####[facility] LABIA [id number] [place] [address] [place] Platelet mean volume (Bld) [Entitic vol] 9.4 fL Normal 9.0-12.7 [facility] Comment on above: Order Comment: Speci men Type: BLOOD SPECIMENOrdering Facility: [facility] Address: [address] [place] [address] Performed By: #### 5 7021-8, 7 ####[facility] LABIA [id number] [place] [address] [place] Platelets (Bld) [#/Vol] 454 10*3/uL High 150-400 [facility] Comment on above: Order Comment: Speci men Type: BLOOD SPECIMENOrdering Facility: [facility] Address: [address] [place], [place] [address] Performed By: #### 5 7021-8, 4537-7 ####[facility] LABCLIA [id number] [place] [address] [place] RBC (Bld) [#/Vol] 5.00 10*6/uL Normal 3.90-5.20 [facility] Comment on above: Order Comment: Speci men Type: BLOOD SPECIMENOrdering Facility: [facility] Address: [address] [place] [address] Performed By: #### 5 7021-8, 4537-7 ####[facility] LABCLIA [id number] [place] [address] [place] WBC (Bld) [#/Vol] 19.38 10*3/uL High 3.70-11.00 [facility] Comment on above: Order Comment: Speci men Type: BLOOD SPECIMENOrdering Facility: [facility] Address: [address] [place] [address] Performed By: #### 5 7021-8, 4537-7 ####[facility] LABCLIA [id number] [address] [place] CNOVon 09-25-2022 CNOV Office Visit (DARNELL ) SHELLY WILSON ([id number]) 1955 F Date Time Provider Department 09/25/22 [...] showing osteoarthritis. Dr Lala her PCP from [facility] in [place] prescribed prednisone 40 mg/d x 5. Reduced [...] John Liz MD Referring Provider: JOHN LIZ [[id number]] Allergies As of Date: 09/25/2022 Noted Allergy Reaction CODEINE 06/27/2022 8 - GI Upset Date Reviewed: 09/25/2022 Reviewed by: Chantell Minaya (more content not included)... Normal [facility] Comprehensive metabolic 2000 panelon 09-25-2022 Albumin [Mass/Vol] 4.2 g/dL Normal 3.9-4.9 [facility] Comment on above: Order Comment: Speci men Type: BLOOD SPECIMENOrdering Facility: [facility] Address: [address] [place] [address] Performed By: #### 2 4323-8 ####[facility] LABCLIA [id number] [place] [address] [place] ALP [Catalytic activity/Vol] 72 U/L Normal 34-123 [facility] Comment on above: Order Comment: Speci men Type: BLOOD SPECIMENOrdering Facility: [facility] Address: [address] [address] Performed By: #### 2 4323-8 ####[facility] LABCLIA [id number] [place] [address] [place] ALT [Catalytic activity/Vol] 28 U/L Normal 7-38 [facility] Comment on above: Order Comment: Speci men Type: BLOOD SPECIMENOrdering Facility: [facility] Address: [address] Performed By: #### 2 4323-8 ####[facility] LABCLIA [id number] [place] [address] [place] Anion gap [Moles/Vol] 12 mmol/L Normal 9-18 [facility] Comment on above: Order Comment: Speci men Type: BLOOD SPECIMENOrdering Facility: [facility] Address: [address] [address] Performed By: #### 2 4323-8 ####[facility] LABCLIA [id number] [place] [address] [place] AST [Catalytic activity/Vol] 24 U/L Normal 13-35 [facility] Comment on above: Order Comment: Speci men Type: BLOOD SPECIMENOrdering Facility: [facility] Address: [address] [place] [address] Performed By: #### 2 4323-8 ####[facility] LABCLIA [id number] [place] [address] [place] Bilirubin [Mass/Vol] 0.4 mg/dL Normal 0.2-1.3 [facility] Comment on above: Order Comment: Speci men Type: BLOOD SPECIMENOrdering Facility: [facility] Address: [address] [place] [address] Performed By: #### 2 4323-8 ####[facility] LABCLIA [id number] [place] [address] [place] Calcium [Mass/Vol] 9.9 mg/dL Normal 8.5-10.2 [facility] Comment on above: Order Comment: Speci men Type: BLOOD SPECIMENOrdering Facility: [facility] Address: [address] [place] [address] Performed By: #### 2 4323-8 ####[facility] LABCLIA [id number] [place] [address] [place] Chloride [Moles/Vol] 102 mmol/L Normal 97-105 [facility] Comment on above: Order Comment: Speci men Type: BLOOD SPECIMENOrdering Facility: [facility] Address: [address] [place], [place] [address] Performed By: #### 2 4323-8 ####[facility] LABCLIA [id number] [place] [address] [place] CO2 [Moles/Vol] 26 mmol/L Normal 22-30 [facility] Comment on above: Order Comment: Speci men Type: BLOOD SPECIMENOrdering Facility: [facility] Address: [address] [address] Performed By: #### 2 4323-8 ####[facility] LABCLIA [id number] [place] [address] [place] Creatinine [Mass/Vol] 0.62 mg/dL Normal 0.58-0.96 [facility] Comment on above: Order Comment: Speci men Type: BLOOD SPECIMENOrdering Facility: [facility] Address: [address] [address] Performed By: #### 2 4323-8 ####[facility] LABIA [id number] [place] [address] [place] ESTIMATED GLOMERULAR FILTRATION RATE 98 mL/min/1.73m??? Normal >=60 [facility] Comment on above: Order Comment: Speci men Type: BLOOD SPECIMENOrdering Facility: [facility] Address: [address] [place] [address] Result Comment: Carmen mated Glomerular Filtration Rate [...] actual GFR. Performed By: #### 2 4323-8 ####[facility] LABIA [id number] [place] [address] [place] Glucose [Mass/Vol] 101 mg/dL High 74-99 [facility] Comment on above: Order Comment: Speci men Type: BLOOD SPECIMENOrdering Facility: [facility] Address: [address] [place] [address] Result Comment: The [place] [employer] (ADA) provides guidance for cutoff [...] Standards of Medical Care in Diabetes 2016, [place] [employer]. Diabetes Care. 2016.39(Suppl 1). Performed By: #### 2 4323-8 ####[facility] LABCLIA [id number] [place] [address] [place] Potassium [Moles/Vol] 4.6 mmol/L Normal 3.7-5.1 [facility] Comment on above: Order Comment: Speci men Type: BLOOD SPECIMENOrdering Facility: [facility] Address: [address] [address] Performed By: #### 2 4323-8 ####[facility] LABIA [id number] [place] [address] [place] Protein [Mass/Vol] 6.8 g/dL Normal 6.3-8.0 [facility] Comment on above: Order Comment: Speci men Type: BLOOD SPECIMENOrdering Facility: [facility] Address: [address] [address] Performed By: #### 2 4323-8 ####[facility] LABCLIA [id number] [place] [address] [place] Sodium [Moles/Vol] 140 mmol/L Normal 136-144 [facility] Comment on above: Order Comment: Speci men Type: BLOOD SPECIMENOrdering Facility: [facility] Address: [address] Performed By: #### 2 4323-8 ####[facility] LABCLIA [id number] [address] Urea nitrogen [Mass/Vol] 15 mg/dL Normal 7-21 [facility] Comment on above: Order Comment: Speci men Type: BLOOD SPECIMENOrdering Facility: [facility] Address: [address] [place] [address] Performed By: #### 2 4323-8 ####[facility] LABCLIA [id number] [address] [place] ESR Westergren method (Bld) [Velocity]on 09-25-2022 ESR (Bld) [Velocity] 15 mm/h Normal 0-20 [facility] Comment on above: Order Comment: Speci men Type: BLOOD SPECIMENOrdering Facility: [facility] Address: [address] [place] [address] Performed By: #### 5 7021-8, 4537-7 ####[facility] LABCLIA [id number] [address] CBC W Auto Differential pane l (Bld)on 08-06-2022 Basophils (Bld) [#/Vol] 0.11 10*3/uL High <0.11 [facility] Comment on above: Order Comment: Speci men Type: BLOOD SPECIMENOrdering Facility: [facility] Address: [address] [place] [address] Performed By: #### 5 7021-8 ####[facility] LABCLIA [id number] [place] [address] Basophils/100 WBC (Bld) 0.6 % Normal [facility] Comment on above: Order Comment: Speci men Type: BLOOD SPECIMENOrdering Facility: [facility] Address: [address] [place] [address] Performed By: #### 5 7021-8 ####[facility] LABCLIA [id number] [place] [address] Differential cell count method Nom (Bld) Auto Normal [facility] Comment on above: Order Comment: Speci men Type: BLOOD SPECIMENOrdering Facility: [facility] Address: [address] [address] Performed By: #### 5 7021-8 ####[facility] LABCLIA [id number] [place] [address] Eosinophils (Bld) [#/Vol] 0.09 10*3/uL Normal <0.46 [facility] Comment on above: Order Comment: Speci men Type: BLOOD SPECIMENOrdering Facility: [facility] Address: [address] [address] Performed By: #### 5 7021-8 ####[facility] LABCLIA [id number] [place] [address] Eosinophils/100 WBC (Bld) 0.5 % Normal [facility] Comment on above: Order Comment: Speci men Type: BLOOD SPECIMENOrdering Facility: [facility] Address: [address] [place] [address] Performed By: #### 5 7021-8 ####[facility] LABCLIA [id number] [place] [address] Erythrocyte distribution width (RBC) [Ratio] 13.5 % Normal 11.5-15.0 [facility] Comment on above: Order Comment: Speci men Type: BLOOD SPECIMENOrdering Facility: [facility] Address: [address] [place] [address] Performed By: #### 5 7021-8 ####[facility] LABCLIA [id number] [place] [address] Hematocrit (Bld) [Volume fraction] 43.1 % Normal 36.0-46.0 [facility] Comment on above: Order Comment: Speci men Type: BLOOD SPECIMENOrdering Facility: [facility] Address: [address] [place] [address] Performed By: #### 5 7021-8 ####[facility] LABCLIA [id number] [place] [address] Hemoglobin (Bld) [Mass/Vol] 14.2 g/dL Normal 11.5-15.5 [facility] Comment on above: Order Comment: Speci men Type: BLOOD SPECIMENOrdering Facility: [facility] Address: [address] [place] [address] Performed By: #### 5 7021-8 ####[facility] LABCLIA [id number] [place] [address] Immature granulocytes (Bld) [#/Vol] 0.20 10*3/uL High <0.10 [facility] Comment on above: Order Comment: Speci men Type: BLOOD SPECIMENOrdering Facility: [facility] Address: [address] [place] [address] Performed By: #### 5 7021-8 ####[facility] LABIA [id number] [place] [address] Immature granulocytes/100 WBC (Bld) 1.1 % Normal [facility] Comment on above: Order Comment: Speci men Type: BLOOD SPECIMENOrdering Facility: [facility] Address: [address] [place] [address] Performed By: #### 5 7021-8 ####[facility] LABCLIA [id number] [place] [address] Lymphocytes (Bld) [#/Vol] 2.21 10*3/uL Normal 1.00-4.00 [facility] Comment on above: Order Comment: Speci men Type: BLOOD SPECIMENOrdering Facility: [facility] Address: [address] [place] [address] Performed By: #### 5 7021-8 ####[facility] LABCLIA [id number] [place] [address] Lymphocytes/100 WBC (Bld) 12.5 % Normal [facility] Comment on above: Order Comment: Speci men Type: BLOOD SPECIMENOrdering Facility: [facility] Address: [address] [address] Performed By: #### 5 7021-8 ####[facility] LABCLIA [id number] [place] [address] MCH (RBC) [Entitic mass] 29.7 pg Normal 26.0-34.0 [facility] Comment on above: Order Comment: Speci men Type: BLOOD SPECIMENOrdering Facility: [facility] Address: [address] [place] [address] Performed By: #### 5 7021-8 ####[facility] LABIA [id number] [place] [address] MCHC (RBC) [Mass/Vol] 32.9 g/dL Normal 30.5-36.0 [facility] Comment on above: Order Comment: Speci men Type: BLOOD SPECIMENOrdering Facility: [facility] Address: [address] [place] [address] Performed By: #### 5 7021-8 ####[facility] LABIA [id number] [place] [address] MCV (RBC) [Entitic vol] 90.2 fL Normal 80.0-100.0 [facility] Comment on above: Order Comment: Speci men Type: BLOOD SPECIMENOrdering Facility: [facility] Address: [address] [place] [address] Performed By: #### 5 7021-8 ####[facility] LABCLIA [id number] [place] [address] Monocytes (Bld) [#/Vol] 1.36 10*3/uL High <0.87 [facility] Comment on above: Order Comment: Speci men Type: BLOOD SPECIMENOrdering Facility: [facility] Address: [address] [place] [address] Performed By: #### 5 7021-8 ####[facility] LABCLIA [id number] [place] [address] Monocytes/100 WBC (Bld) 7.7 % Normal [facility] Comment on above: Order Comment: Speci men Type: BLOOD SPECIMENOrdering Facility: [facility] Address: [address] [place] [address] Performed By: #### 5 7021-8 ####[facility] LABCLIA [id number] [place] [address] Neutrophils (Bld) [#/Vol] 13.72 10*3/uL High 1.45-7.50 [facility] Comment on above: Order Comment: Speci men Type: BLOOD SPECIMENOrdering Facility: [facility] Address: [address] [place] [address] Performed By: #### 5 7021-8 ####[facility] LABCLIA [id number] [place] [address] Neutrophils/100 WBC (Bld) 77.6 % Normal [facility] Comment on above: Order Comment: Speci men Type: BLOOD SPECIMENOrdering Facility: [facility] Address: [address] [place] [address] Performed By: #### 5 7021-8 ####[facility] LABCLIA [id number] [place] [address] Nucleated RBC (Bld) [#/Vol] 10*3/uL Normal <0.01 [facility] Comment on above: Order Comment: Speci men Type: BLOOD SPECIMENOrdering Facility: [facility] Address: [address] [place] [address] Performed By: #### 5 7021-8 ####[facility] LABCLIA [id number] [place] [address] Nucleated RBC/100 WBC (Bld) [Ratio] 0.0 /100 WBC Normal [facility] Comment on above: Order Comment: Speci men Type: BLOOD SPECIMENOrdering Facility: [facility] Address: [address] [place] [address] Performed By: #### 5 7021-8 ####[facility] LABCLIA [id number] [place] [address] Platelet mean volume (Bld) [Entitic vol] 8.3 fL Low 9.0-12.7 [facility] Comment on above: Order Comment: Speci men Type: BLOOD SPECIMENOrdering Facility: [facility] Address: [address] [place] [address] Performed By: #### 5 7021-8 ####[facility] LABCLIA [id number] [place] [address] Platelets (Bld) [#/Vol] 431 10*3/uL High 150-400 [facility] Comment on above: Order Comment: Speci men Type: BLOOD SPECIMENOrdering Facility: [facility] Address: [address] [place] [address] Performed By: #### 5 7021-8 ####[facility] LABCLIA [id number] [place] [address] RBC (Bld) [#/Vol] 4.78 10*6/uL Normal 3.90-5.20 [facility] Comment on above: Order Comment: Speci men Type: BLOOD SPECIMENOrdering Facility: [facility] Address: [address] [place] [address] Performed By: #### 5 7021-8 ####[facility] LABCLIA [id number] [place] [address] WBC (Bld) [#/Vol] 17.69 10*3/uL High 3.70-11.00 [facility] Comment on above: Order Comment: Speci men Type: BLOOD SPECIMENOrdering Facility: [facility] Address: [address] [place] [address] Performed By: #### 5 7021-8 ####[facility] LABCLIA [id number] [place] [address] Comprehensive metabolic 2000 panelon 08-06-2022 Albumin [Mass/Vol] 4.0 g/dL Normal 3.9-4.9 [facility] Comment on above: Order Comment: Speci men Type: BLOOD SPECIMENOrdering Facility: [facility] Address: [address] [address] Performed By: #### 2 4323-8 ####[facility] LABCLIA [id number] [place] [address] ALP [Catalytic activity/Vol] 68 U/L Normal 34-123 [facility] Comment on above: Order Comment: Speci men Type: BLOOD SPECIMENOrdering Facility: [facility] Address: [address] [address] Performed By: #### 2 4323-8 ####[facility] LABCLIA [id number] [place] [address] ALT [Catalytic activity/Vol] 16 U/L Normal 7-38 [facility] Comment on above: Order Comment: Speci men Type: BLOOD SPECIMENOrdering Facility: [facility] Address: [address] [address] Performed By: #### 2 4323-8 ####[facility] LABCLIA [id number] [place] [address] Anion gap [Moles/Vol] 7 mmol/L Low 9-18 [facility] Comment on above: Order Comment: Speci men Type: BLOOD SPECIMENOrdering Facility: [facility] Address: [address] [address] Performed By: #### 2 4323-8 ####[facility] LABCLIA [id number] [place] [address] AST [Catalytic activity/Vol] 16 U/L Normal 13-35 [facility] Comment on above: Order Comment: Speci men Type: BLOOD SPECIMENOrdering Facility: [facility] Address: [address] [address] Performed By: #### 2 4323-8 ####[facility] LABCLIA [id number] [place] [address] Bilirubin [Mass/Vol] 0.4 mg/dL Normal 0.2-1.3 [facility] Comment on above: Order Comment: Speci men Type: BLOOD SPECIMENOrdering Facility: [facility] Address: [address] [address] Performed By: #### 2 4323-8 ####[facility] LABCLIA [id number] [place] [address] Calcium [Mass/Vol] 9.8 mg/dL Normal 8.5-10.2 [facility] Comment on above: Order Comment: Speci men Type: BLOOD SPECIMENOrdering Facility: [facility] Address: [address] [place] [address] Performed By: #### 2 4323-8 ####[facility] LABCLIA [id number] [place] [address] Chloride [Moles/Vol] 102 mmol/L Normal 97-105 [facility] Comment on above: Order Comment: Speci men Type: BLOOD SPECIMENOrdering Facility: [facility] Address: [address] [place] [address] Performed By: #### 2 4323-8 ####[facility] LABCLIA [id number] [place] [address] CO2 [Moles/Vol] 28 mmol/L Normal 22-30 [facility] Comment on above: Order Comment: Speci men Type: BLOOD SPECIMENOrdering Facility: [facility] Address: [address] [place] [address] Performed By: #### 2 4323-8 ####[facility] LABCLIA [id number] [place] [address] Creatinine [Mass/Vol] 0.66 mg/dL Normal 0.58-0.96 [facility] Comment on above: Order Comment: Speci men Type: BLOOD SPECIMENOrdering Facility: [facility] Address: [address] [place] [address] Performed By: #### 2 4323-8 ####[facility] LABCLIA [id number] [place] [address] ESTIMATED GLOMERULAR FILTRATION RATE 97 mL/min/1.73m??? Normal >=60 [facility] Comment on above: Order Comment: Robertsho purvis Type: BLOOD SPECIMENOrdering Facility: [facility] Address: [address] [place] [address] Result Comment: Carmen mated Glomerular Filtration Rate [...] actual GFR. Performed By: #### 2 4323-8 ####[facility] LABCLIA [id number] [place] [address] Glucose [Mass/Vol] 118 mg/dL High 74-99 [facility] Comment on above: Order Comment: Tam purvis Type: BLOOD SPECIMENOrdering Facility: [facility] Address: [address] [place] [address] Result Comment: The [place] [employer] (ADA) provides guidance for cutoff [...] Standards of Medical Care in Diabetes 2016, [place] [employer]. Diabetes Care. 2016.39(Suppl 1). Performed By: #### 2 4323-8 ####[facility] LABCLIA [id number] [place] [address] Potassium [Moles/Vol] 4.3 mmol/L Normal 3.7-5.1 [facility] Comment on above: Order Comment: Speci men Type: BLOOD SPECIMENOrdering Facility: [facility] Address: [address] [place] [address] Performed By: #### 2 4323-8 ####[facility] LABCLIA [id number] [place] [address] Protein [Mass/Vol] 6.6 g/dL Normal 6.3-8.0 [facility] Comment on above: Order Comment: Speci men Type: BLOOD SPECIMENOrdering Facility: [facility] Address: [address] [place] [address] Performed By: #### 2 4323-8 ####[facility] LABIA [id number] [place] [address] Sodium [Moles/Vol] 137 mmol/L Normal 136-144 [facility] Comment on above: Order Comment: Speci men Type: BLOOD SPECIMENOrdering Facility: [facility] Address: [address] [place] [address] Performed By: #### 2 4323-8 ####[facility] LABIA [id number] [place] [address] Urea nitrogen [Mass/Vol] 16 mg/dL Normal 7-21 [facility] Comment on above: Order Comment: Speci men Type: BLOOD SPECIMENOrdering Facility: [facility] Address: [address] [place] [address] Performed By: #### 2 4323-8 ####[facility] LABIA [id number] [place] [address] ESR Westergren method (Bld) [Velocity]on 08-06-2022 ESR (Bld) [Velocity] 18 mm/h Normal 0-20 [facility] Comment on above: Order Comment: Speci men Type: BLOOD SPECIMENOrdering Facility: [facility] Address: [address] [place] [address] Performed By: #### 4 537-7 ####[facility] LABCLIA [id number] [place] [address] [place] HBV core Ab Ser Qlon 023 HBV core Ab Ql (S) Negative Normal Negative [facility] Comment on above: Order Comment: Speci men Type: BLOOD SPECIMENOrdering Facility: [facility] Address: [address] [place] [address] Result Comment: No e vidence of current or past infection with Hepatitis B virus. Should recent infection be suspected, repeat testing may be considered 3-4 weeks after this draw. Performed By: #### 1 6933-4, 5195-3, 27302-9 ####[facility] LABCLIA [id number] [address] [facility] HBV surface Ab Ql (S)on 07-19 HBV surface Ab Qn (S) <8.00 Low >=12.00 [facility] Comment on above: Order Comment: Speci men Type: BLOOD SPECIMENOrdering Facility: [facility] Address: [address] [place] [address] Performed By: #### 1 6933-4, 5195-3, 32187-4 ####[facility] LABCLIA [id number] [address] [place] HBV surface Ab Ser Qlon 07-19 HBV surface Ab Ql (S) Negative Abnormal Positive [facility] Comment on above: Order Comment: Speci men Type: BLOOD SPECIMENOrdering Facility: [facility] Address: [address] [place] [address] Result Comment: No e vidence of antibodies to Hepatitis B surface antigen. Performed By: #### 1 6933-4, 5195-3, 26174-0 ####[facility] LABCLIA [id number] [address] [place] HBV surface Ag Ser Qlon 07-19 HBV surface Ag Ql (S) Negative Normal Negative [facility] Comment on above: Order Comment: Speci men Type: BLOOD SPECIMENOrdering Facility: [facility] Address: [address] [place] [address] Performed By: #### 1 6933-4, 5195-3, 48654-4 ####[facility] LABIA [id number] [address] [place] HCV Ab Ser Qlon 08-06-2022 HCV Ab Ql (S) Negative Normal Negative [facility] Comment on above: Order Comment: Speci men Type: BLOOD SPECIMENOrdering Facility: [facility] Address: [address] [place] [address] Result Comment: The result suggests no evidence of active infection with Hepatitis C virus. Should recent infection be suspected, repeat testing may be considered 4-6 weeks after this draw. Performed By: #### 1 6128-1 ####[facility] LABIA [id number] [address] [place] Workers' Comp Officeon 07-26 Workers' Comp Office [id number]#1. 00CD:127 Normal [facility] CNOVon 06-27-2022 CNOV Office Visit (DERMMN ) SHELLY WILSON ([id number]) 1955 F Date Time Provider Department 06/27/22 10:45 AM YANNA MILLER During your visit today, we recorded the [...] Lymph 1.00 - 4.00 k/uL 4.49 (H) [place]% % 7.0 Abs [place] <0.87 k/uL 1.50 (H) Eosin% % 0.0 [...] skin folds (more content not included)... Normal [facility] Consultation Noteon 06-28-19 Consultation Note Chief [...] after the procedure for repeat evaluation. 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 Are her hands swollen? MD Karyn Sandovali 06/26/2022 2:48 PM Signed Spoke with patient via phone. Explained results and methotrexate. Discussed possible SE/risks/benefits with patient. She agrees to try it. I will send her information in the mail. She said please send Rx to [facility] pharmacy in [place], [place] on [address] [facility]. She also notes that her hands are stiff and swollen again. She stopped prednisone Friday (she is out of pills) and the stiffness and swelling came back this morning. Also - she made an appointment to see Derm at [facility]. Her appointment is tomorrow 06/27. John [...] 2 CBC + DIFF [SQCBCDIF] Order #: [id number] FUTURE COMP METABOLIC PANEL [SQCMP] Order #: [id number] FUTURE SED RATE WESTERGREN [SQWSR] Order #: [id number] FUTURE HEP REMOTE PANEL BL [SQHREMOP] Order #: [id number] FUTURE Prescriptions as of 06/26/2022 - methotrexate [...] Number: 76 (more content not included)... Normal [facility] Consent for Treatmenton 06-17 Consent for Treatment [id number]#1. 00CD:127 Normal [facility] Office/Clinic Note-Physician on 06-26-2022 Office/Clinic Note-Physician [id number]#1.0 0CD:127 Normal [facility] Patient Correspondenceon Patient Correspondence [id number]#1.0 0CD:127 Normal [facility] Patient Correspondence [id number]#1.0 0CD:127 Normal [facility] Patient History Officeon Patient History Office [id number]#1.0 0CD:127 Normal [facility] ESR Westergren method (Bld) [Velocity]on 06-25-2022 ESR (Bld) [Velocity] 21 mm/h High 0 - 20 mm/hr [facility] CBC W Auto Differential pane l (Bld)on 06-24-2022 Basophils (Bld) [#/Vol] 0.21 10*3/uL High <0.11 [facility] Comment on above: Order Comment: Speci men Type: BLOOD SPECIMENOrdering Facility: [facility] Address: [address] [place], [place] [address] Performed By: #### 5 7021-8, 4536-7 ####[facility] LABCLIA [id number] [place] [address] [place] Basophils/100 WBC (Bld) 1.0 % Normal [facility] Comment on above: Order Comment: Speci men Type: BLOOD SPECIMENOrdering Facility: [facility] Address: [address] Performed By: #### 5 7021-8, 7 ####[facility] LABCLIA [id number] [place] [address] [place] Differential cell count method Nom (Bld) Manual Normal [facility] Comment on above: Order Comment: Speci men Type: BLOOD SPECIMENOrdering Facility: [facility] Address: [address] Performed By: #### 5 7021-8, 7 ####[facility] LABCLIA [id number] [place] [address] [place] Eosinophils (Bld) [#/Vol] 0.00 10*3/uL Normal <0.46 [facility] Comment on above: Order Comment: Speci men Type: BLOOD SPECIMENOrdering Facility: [facility] Address: [address] Performed By: #### 5 7021-8, 7 ####[facility] LABCLIA [id number] [place] [address] [place] Eosinophils/100 WBC (Bld) 0.0 % Normal [facility] Comment on above: Order Comment: Speci men Type: BLOOD SPECIMENOrdering Facility: [facility] Address: [address] Performed By: #### 5 7021-8, 4536-7 ####[facility] LABCLIA [id number] [place] [address] [place] Erythrocyte distribution width (RBC) [Ratio] 12.4 % Normal 11.5-15.0 [facility] Comment on above: Order Comment: Speci men Type: BLOOD SPECIMENOrdering Facility: [facility] Address: [address] [place] [address] Performed By: #### 5 7021-8, 4537-7 ####[facility] LABCLIA [id number] [place] [address] [place] Hematocrit (Bld) [Volume fraction] 42.2 % Normal 36.0-46.0 [facility] Comment on above: Order Comment: Speci men Type: BLOOD SPECIMENOrdering Facility: [facility] Address: [address] [place] [address] Performed By: #### 5 7021-8, 4537-7 ####[facility] LABCLIA [id number] [place] [address] [place] Hemoglobin (Bld) [Mass/Vol] 14.5 g/dL Normal 11.5-15.5 [facility] Comment on above: Order Comment: Speci men Type: BLOOD SPECIMENOrdering Facility: [facility] Address: [address] [place] [address] Performed By: #### 5 7021-8, 4537-7 ####[facility] LABCLIA [id number] [place] [address] [place] Lymphocytes (Bld) [#/Vol] 4.49 10*3/uL High 1.00-4.00 [facility] Comment on above: Order Comment: Speci men Type: BLOOD SPECIMENOrdering Facility: [facility] Address: [address] [place], [place] [address] Performed By: #### 5 7021-8, 4537-7 ####[facility] LABCLIA [id number] [place] [address] [place] Lymphocytes/100 WBC (Bld) 21.0 % Normal [facility] Comment on above: Order Comment: Speci men Type: BLOOD SPECIMENOrdering Facility: [facility] Address: [address] [place], [place] [address] Performed By: #### 5 7021-8, 4536-7 ####[facility] LABCLIA [id number] [place] [address] [place] MCH (RBC) [Entitic mass] 30.9 pg Normal 26.0-34.0 [facility] Comment on above: Order Comment: Speci men Type: BLOOD SPECIMENOrdering Facility: [facility] Address: [address] [place], [place] [address] Performed By: #### 5 7021-8, 4536-7 ####[facility] LABCLIA [id number] [place] [address] [place] MCHC (RBC) [Mass/Vol] 34.4 g/dL Normal 30.5-36.0 [facility] Comment on above: Order Comment: Speci men Type: BLOOD SPECIMENOrdering Facility: [facility] Address: [address] [place], [place] [address] Performed By: #### 5 7021-8, 4536-7 ####[facility] LABCLIA [id number] [place] [address] [place] MCV (RBC) [Entitic vol] 90.0 fL Normal 80.0-100.0 [facility] Comment on above: Order Comment: Speci men Type: BLOOD SPECIMENOrdering Facility: [facility] Address: [address] [place], [place] [address] Performed By: #### 5 7021-8, 4536-7 ####[facility] LABCLIA [id number] [place] [address] [place] Monocytes (Bld) [#/Vol] 1.50 10*3/uL High <0.87 [facility] Comment on above: Order Comment: Speci men Type: BLOOD SPECIMENOrdering Facility: [facility] Address: [address] [address] Performed By: #### 5 7021-8, 7 ####[facility] LABCLIA [id number] [place] [address] [place] Monocytes/100 WBC (Bld) 7.0 % Normal [facility] Comment on above: Order Comment: Speci men Type: BLOOD SPECIMENOrdering Facility: [facility] Address: [address] [address] Performed By: #### 5 7021-8, 7 ####[facility] LABCLIA [id number] [place] [address] [place] MYELO% 1.0 % Normal [facility] Comment on above: Order Comment: Speci men Type: BLOOD SPECIMENOrdering Facility: [facility] Address: [address] [address] Performed By: #### 5 7021-8, 7 ####[facility] LABCLIA [id number] [place] [address] [place] Neutrophils (Bld) [#/Vol] 14.95 10*3/uL High 1.45-7.50 [facility] Comment on above: Order Comment: Speci men Type: BLOOD SPECIMENOrdering Facility: [facility] Address: [address] Performed By: #### 5 7021-8, 4536-08 ####[facility] LABCLIA [id number] [place] [address] [place] Neutrophils/100 WBC (Bld) 70.0 % Normal [facility] Comment on above: Order Comment: Speci men Type: BLOOD SPECIMENOrdering Facility: [facility] Address: [address] [place], [place] [address] Performed By: #### 5 7021-8, 7 ####[facility] LABCLIA [id number] [facility] [address] [place] Nucleated RBC (Bld) [#/Vol] 10*3/uL Normal <0.01 [facility] Comment on above: Order Comment: Speci men Type: BLOOD SPECIMENOrdering Facility: [facility] Address: [address] [place], [place] [address] Performed By: #### 5 7021-8, 7 ####[facility] LABIA [id number] [place] [address] [place] Nucleated RBC/100 WBC (Bld) [Ratio] 0.0 /100 WBC Normal [facility] Comment on above: Order Comment: Speci men Type: BLOOD SPECIMENOrdering Facility: [facility] Address: [address] [place], [place] [address] Performed By: #### 5 7021-8, 7 ####[facility] LABIA [id number] [place] [address] [place] Platelet mean volume (Bld) [Entitic vol] 8.6 fL Low 9.0-12.7 [facility] Comment on above: Order Comment: Speci men Type: BLOOD SPECIMENOrdering Facility: [facility] Address: [address] [place], [place] [address] Performed By: #### 5 7021-8, 7 ####[facility] LABIA [id number] [place] [address] [place] Platelets (Bld) [#/Vol] 465 10*3/uL High 150-400 [facility] Comment on above: Order Comment: Speci men Type: BLOOD SPECIMENOrdering Facility: [facility] Address: [address] [address] Performed By: #### 5 7021-8, 4536-7 ####[facility] LABIA [id number] [place] [address] [place] Platelets Estimate (Bld) [#/Vol] Increased Normal [facility] Comment on above: Order Comment: Speci men Type: BLOOD SPECIMENOrdering Facility: [facility] Address: [address] [place] [address] Performed By: #### 5 7021-8, 7-7 ####[facility] LABCLIA [id number] [place] [address] [place] Polychromasia LM Ql (Bld) Slight Normal [facility] Comment on above: Order Comment: Speci men Type: BLOOD SPECIMENOrdering Facility: [facility] Address: [address] [place], [place] [address] Performed By: #### 5 7021-8, 4536-7 ####[facility] LABCLIA [id number] [place] [address] [place] RBC (Bld) [#/Vol] 4.69 10*6/uL Normal 3.90-5.20 [facility] Comment on above: Order Comment: Speci men Type: BLOOD SPECIMENOrdering Facility: [facility] Address: [address] [place], [place] [address] Performed By: #### 5 7021-8, 4536-7 ####[facility] LABCLIA [id number] [place] [address] [place] RED CELL MORPH Reviewed: unremarkable Normal [facility] Comment on above: Order Comment: Speci men Type: BLOOD SPECIMENOrdering Facility: [facility] Address: [address] [place], [place] [address] Performed By: #### 5 7021-8, 4536-7 ####[facility] LABCLIA [id number] [place] [address] [place] WBC (Bld) [#/Vol] 21.36 10*3/uL High 3.70-11.00 [facility] Comment on above: Order Comment: Speci men Type: BLOOD SPECIMENOrdering Facility: [facility] Address: [address] [address] Performed By: #### 5 7021-8, 4537-7 ####[facility] LABCLIA [id number] [address] [place] WBC Left Shift Ql (Bld) Present Normal [facility] Comment on above: Order Comment: Speci men Type: BLOOD SPECIMENOrdering Facility: [facility] Address: [address] [place] [address] Performed By: #### 5 7021-8, 4537-7 ####[facility] LABIA [id number] [address] [place] CK SerPl-cCncon 06-24-2022 CK [Catalytic activity/Vol] 37 U/L Low 42-196 [facility] Comment on above: Order Comment: Speci men Type: BLOOD SPECIMENOrdering Facility: [facility] Address: [address] [place] [address] Performed By: #### 2 157-6, 13731-7, 48249-8, 3084-1 ####[facility] LABCLIA [id number] [address] [place] CNOVon 06-24-2022 CNOV Office Visit (DARNELL ) SHELLY WILSON ([id number]) 1955 F Date Time Provider Department 06/24/22 2:00 PM JONH LIZ During your visit today, we recorded [...] showing osteoarthritis. Dr Lala her PCP from [facility] in [place] prescribed prednisone 40 mg/d x 5. Reduced [...] Rv 3 (more content not included)... Normal [facility] CRP SerPl-mCncon 06-24-2022 CRP [Mass/Vol] 0.5 mg/dL Normal <0.9 [facility] Comment on above: Order Comment: Speci men Type: BLOOD SPECIMENOrdering Facility: [facility] Address: [address] [place] [address] Performed By: #### 1 988-5, 2885-2 ####[facility] LABCLIA [id number] [place] [address] [place] [facility] Comprehensive metabolic 2000 panelon 06-24-2022 Albumin [Mass/Vol] 4.0 g/dL Normal 3.9-4.9 [facility] Comment on above: Order Comment: Roberti yaniv Type: BLOOD SPECIMENOrdering Facility: [facility] Address: [address] [place] [address] Performed By: #### 2 157-6, 26167-1, 63124-0, 3084-1 ####[facility] LABCLIA [id number] [address] [place] ALP [Catalytic activity/Vol] 75 U/L Normal 34-123 [facility] Comment on above: Order Comment: Speci men Type: BLOOD SPECIMENOrdering Facility: [facility] Address: [address] [place], [place] [address] Performed By: #### 2 157-6, 49560-5, 38041-9, 3084-1 ####[facility] LABCLIA [id number] [address] ALT [Catalytic activity/Vol] 21 U/L Normal 7-38 [facility] Comment on above: Order Comment: Speci men Type: BLOOD SPECIMENOrdering Facility: [facility] Address: [address] [place] [address] Performed By: #### 2 157-6, 17884-9, 03786-8, 3084-1 ####[facility] LABCLIA [id number] [place] [address] [place] Anion gap [Moles/Vol] 13 mmol/L Normal 9-18 [facility] Comment on above: Order Comment: Speci men Type: BLOOD SPECIMENOrdering Facility: [facility] Address: [address] [place], [place] [address] Performed By: #### 2 157-6, 05992-7, 48160-5, 3084-1 ####[facility] LABCLIA [id number] [place] [address] [place] AST [Catalytic activity/Vol] 15 U/L Normal 13-35 [facility] Comment on above: Order Comment: Speci men Type: BLOOD SPECIMENOrdering Facility: [facility] Address: [address] [place] [address] Performed By: #### 2 157-6, 70189-0, 17183-9, 3084-1 ####[facility] LABCLIA [id number] [place] [address] [place] Bilirubin [Mass/Vol] 0.3 mg/dL Normal 0.2-1.3 [facility] Comment on above: Order Comment: Speci men Type: BLOOD SPECIMENOrdering Facility: [facility] Address: [address] [place], [place] [address] Performed By: #### 2 157-6, 71418-4, 54349-6, 3084-1 ####[facility] LABCLIA [id number] [place] [address] [place] Calcium [Mass/Vol] 9.8 mg/dL Normal 8.5-10.2 [facility] Comment on above: Order Comment: Speci men Type: BLOOD SPECIMENOrdering Facility: [facility] Address: [address] [place], [place] [address] Performed By: #### 2 157-6, 78047-7, 08071-1, 3084-1 ####[facility] LABCLIA [id number] [place] [address] [place] Chloride [Moles/Vol] 100 mmol/L Normal 97-105 [facility] Comment on above: Order Comment: Speci men Type: BLOOD SPECIMENOrdering Facility: [facility] Address: [address] [place] [address] Performed By: #### 2 157-6, 63882-3, 69136-7, 3084-1 ####[facility] LABCLIA [id number] [place] [address] [place] CO2 [Moles/Vol] 25 mmol/L Normal 22-30 [facility] Comment on above: Order Comment: Speci men Type: BLOOD SPECIMENOrdering Facility: [facility] Address: [address] [place] [address] Performed By: #### 2 157-6, 57720-7, 55870-7, 3084-1 ####[facility] LABCLIA [id number] [place] [address] [place] Creatinine [Mass/Vol] 0.71 mg/dL Normal 0.58-0.96 [facility] Comment on above: Order Comment: Speci men Type: BLOOD SPECIMENOrdering Facility: [facility] Address: [address] [place] [address] Performed By: #### 2 157-6, 45665-8, 91952-1, 3084-1 ####[facility] LABCLIA [id number] [place] [address] [place] ESTIMATED GLOMERULAR FILTRATION RATE 94 mL/min/1.73m??? Normal >=60 [facility] Comment on above: Order Comment: Speci men Type: BLOOD SPECIMENOrdering Facility: [facility] Address: [address] [place], [place] [address] Result Comment: Carmen mated Glomerular Filtration Rate [...] actual GFR. Performed By: #### 2 157-6, 12883-8, 99067-1, 3084-1 ####[facility] LABCLIA [id number] [address] [address] [place] Glucose [Mass/Vol] 62 mg/dL Low 74-99 [facility] Comment on above: Order Comment: Tam purvis Type: BLOOD SPECIMENOrdering Facility: [facility] Address: [address] [place], [place] [address] Result Comment: The [place] [employer] (ADA) provides guidance for cutoff [...] Standards of Medical Care in Diabetes 2016, [place] [employer]. Diabetes Care. 2016.39(Suppl 1). Performed By: #### 2 157-6, 99047-5, 70939-9, 3084-1 ####[facility] LABIA [id number] [place] [id number] [place] Potassium [Moles/Vol] 4.2 mmol/L Normal 3.7-5.1 [facility] Comment on above: Order Comment: Tam purvis Type: BLOOD SPECIMENOrdering Facility: [facility] Address: [address] [place] [address] Performed By: #### 2 157-6, 32601-8, 86249-2, 3084-1 ####[facility] LABCLIA [id number] [place] [id number] [place] Protein [Mass/Vol] 6.8 g/dL Normal 6.3-8.0 [facility] Comment on above: Order Comment: Speci men Type: BLOOD SPECIMENOrdering Facility: [facility] Address: [address] [place] [address] Performed By: #### 2 157-6, 23842-5, 00106-4, 3084-1 ####[facility] LABIA [id number] [place] [address] [place] Sodium [Moles/Vol] 138 mmol/L Normal 136-144 [facility] Comment on above: Order Comment: Speci men Type: BLOOD SPECIMENOrdering Facility: [facility] Address: [address] [place] [address] Performed By: #### 2 157-6, 41016-4, 93838-3, 3084-1 ####[facility] LABIA [id number] [place] [address] [place] Urea nitrogen [Mass/Vol] 17 mg/dL Normal 7-21 [facility] Comment on above: Order Comment: Speci men Type: BLOOD SPECIMENOrdering Facility: [facility] Address: [address] [place], [place] [address] Performed By: #### 2 157-6, 17954-1, 26473-6, 3084-1 ####[facility] LABIA [id number] [place] [address] [place] Cyclic citrullinated peptide IgG Qnon 06-24-2022 CCP ANTIBODY IGG QUALITATIVE Positive Abnormal Negative [facility] Comment on above: Order Comment: Speci men Type: BLOOD SPECIMENOrdering Facility: [facility] Address: [address] [place] [address] Performed By: #### 4 7383-5, 19370-7 ####[facility] LABCLIA [id number] [place] [address] [place] ESR Westergren method (Bld) [Velocity]on 06-24-2022 ESR (Bld) [Velocity] 21 mm/h High 0-20 [facility] Comment on above: Order Comment: Speci men Type: BLOOD SPECIMENOrdering Facility: [facility] Address: [address] [place] [address] Performed By: #### 5 7021-8, 4537-7 ####[facility] LABIA [id number] [address] [place] No Panel Informationon 06-24 [facility] Nuclear Ab IA Ql (S)on 06-24 BABATUNDE BY EIA, QUAL Negative Normal Negative [facility] Comment on above: Order Comment: Speci men Type: BLOOD SPECIMENOrdering Facility: [facility] Address: [address] [place] [address] Result Comment: The qualitative antinuclear antibody screen test performed using enzyme immunoassay including the following antigens: dsDNA, histones, SS-A, SS-B, Sm, Sm/STRIP STAMP STRAIGHTENER, Scl-70, Elham-1, and centromeric antigens. Performed By: #### 4 7383-5, 71802-3 ####[facility] LABIA [id number] [address] [place] PROTEIN ELECTROPHORESIS SERU M (P)on 06-24-2022 Albumin [Mass/Vol] 3.51 g/dL Normal 3.43-5.41 [facility] Comment on above: Order Comment: Speci men Type: BLOOD SPECIMENOrdering Facility: [facility] Address: [address] [place] [address] Performed By: #### L [id number] ####[facility] LABCLIA [id number] [address] [place] Alpha 1 globulin Elph [Mass/Vol] 0.36 g/dL Normal 0.18-0.43 [facility] Comment on above: Order Comment: Speci men Type: BLOOD SPECIMENOrdering Facility: [facility] Address: [address] [place] [address] Performed By: #### L [id number] ####[facility] LABCLIA [id number] [place] [address] [place] Alpha 2 globulin Elph [Mass/Vol] 1.04 g/dL High 0.42-0.98 [facility] Comment on above: Order Comment: Speci men Type: BLOOD SPECIMENOrdering Facility: [facility] Address: [address] [place], [place] [address] Performed By: #### L [id number] ####[facility] LABIA [id number] [place] [address] [place] Beta globulin Elph [Mass/Vol] 0.88 g/dL Normal 0.61-1.17 [facility] Comment on above: Order Comment: Speci men Type: BLOOD SPECIMENOrdering Facility: [facility] Address: [address] [place], [place] [address] Performed By: #### L [id number] ####[facility] LABIA [id number] [place] [address] [place] Gamma globulin Elph [Mass/Vol] 0.71 g/dL Normal 0.53-1.51 [facility] Comment on above: Order Comment: Speci men Type: BLOOD SPECIMENOrdering Facility: [facility] Address: [address] [place], [place] [address] Performed By: #### L [id number] ####[facility] LABIA [id number] [place] [address] [place] M-PROTEIN LOCATION Normal [facility] Comment on above: Order Comment: Speci men Type: BLOOD SPECIMENOrdering Facility: [facility] Address: [address] [place], [place] [address] Result Comment: Not Applicable. Performed By: #### L [id number] ####[facility] LABCLIA [id number] [address] Protein Fractions [Interp] No definitive M protein is identified on protein electrophoresis. Normal No definitive M protein is identified on protein electrophoresi s. [facility] Comment on above: Order Comment: Speci men Type: BLOOD SPECIMENOrdering Facility: [facility] Address: [address] [place] [address] Performed By: #### L [id number] ####[facility] LABIA [id number] [address] Protein.monoclonal Elph [Mass/Vol] 0.00 g/dL Normal <=0.00 [facility] Comment on above: Order Comment: Speci men Type: BLOOD SPECIMENOrdering Facility: [facility] Address: [address] [place] [address] Performed By: #### L [id number] ####[facility] LABIA [id number] [address] SPE STAFF REVIEW Reviewed by Dr. Jacob Benitez MD [facility] Comment on above: Order Comment: Speci men Type: BLOOD SPECIMENOrdering Facility: [facility] Address: [address] [place] [address] Performed By: #### L [id number] ####[facility] LABIA [id number] [address] [place] Prot SerPl-mCncon 06-24-2022 Protein [Mass/Vol] 6.5 g/dL Normal 6.3-8.0 [facility] Comment on above: Order Comment: Speci men Type: BLOOD SPECIMENOrdering Facility: [facility] Address: [address] [place] [address] Performed By: #### 1 988-5, 2885-2 ####[facility] LABCLIA [id number] [place] [id number] [place] Rheumatoid fact SerPl-aCncon 06-24-2022 Rheumatoid factor Qn [IU]/mL Normal <16 [facility] Comment on above: Order Comment: Speci men Type: BLOOD SPECIMENOrdering Facility: [facility] Address: [address] [place] [address] Performed By: #### 2 157-6, 05848-8, 46754-6, 3084-1 ####[facility] LABCLIA [id number] [place] [address] [place] Urate SerPl-mCncon Urate [Mass/Vol] 4.4 mg/dL Normal 2.5-6.6 [facility] Comment on above: Order Comment: Speci men Type: BLOOD SPECIMENOrdering Facility: [facility] Address: [address] [place] [address] Performed By: #### 2 157-6, 67055-8, 31816-0, 3084-1 ####[facility] LABIA [id number] [place] [id number] [place] XR CHEST 2V [...] Exaggerated thoracic kyphosis with degenerative changes. IMPRESSION: Servicing Manager: RENA Transcribe Date/Time: Jun 27 2022 2:09P Dictated by : LEE HIGGINS MD This examination was interpreted and the report reviewed and electronically signed by: LEE HIGGINS MD on Jun 27 2022 2:10PM EST [id number] Normal [facility] XR FOOT 3V AP/LAT/OBL BILon 06-24-2022 [...] IMPRESSION: Degenerative arthritis. No evidence of erosions. Servicing Manager: PSCB Transcribe Date/Time: Jun 24 2022 3:36P Dictated by : REA MILLER MD This examination was interpreted and the report reviewed and electronically signed by: REA MILLER MD on Jun 24 2022 3:37PM EST [id number] Normal [facility] XR HAND/WRIST SURVEY 1V PA B [...] IMPRESSION: Degenerative arthritis. No evidence of erosions. Servicing Manager: RENA Transcribe Date/Time: Jun 24 2022 3:34P Dictated by : REA MILLER MD This examination was interpreted and the report reviewed and electronically signed by: REA MILLER MD on Jun 24 2022 3:36PM EST [id number] Normal [facility] cCP IgG SerPl-aCncon 023 Cyclic citrullinated peptide IgG Qn 78 Units High <20 [facility] Comment on above: Order Comment: Speci men Type: BLOOD SPECIMENOrdering Facility: [facility] Address: [address] [place] [address] Performed By: #### 4 7383-5, 45736-9 ####[facility] LABCLIA [id number] [address] [place] US VENOUS DOPPLER BENJAMIN [...] by: WADE YU Date: 2022-06-19 20:02 Normal [facility] Coding Summary.on 06-05-2022 Coding Summary. CD:[id number] Ww +PGhlYWQ+RB5ALQYzY21xy VIcoZ4uH7GAVBiWXajbLXN FWTbJCcMvovHaRT8buGWmZ XJu IC8+YN8sBEOoCofwzPOhi9 A7cIY5Q42kex7mFOxinCK1 YTPlGvSkrhino8xqbAg9LP cuNmluOyBt QRUgaH46MSI4oI00Xz72pX GinWOqk4osbLx9TjGrESXz CGN2eEfvCVtqx9UfRBIcQ2 6npJTaf6I6 BGXamJeyaTAaGtBykNH5hJ 0jQWywhfqbj0htmrgzKhe3 fl55xWNcy9Z4aSL1I3Phow V6VEYcoIFb TwgpnKEWyS8fkewbg5yjly snAoFlEOBcEYr1DTh3YZJu eGyrNmVhQU20ERH0FNYwtt PxC9ViUJAq gWhvFgI4q6B1Ld8IM6RQCi bvF8UILHYBZZviwFN+PC90 cv30N4AkVizeHww0EWLnNV U2tHQ6fW6i BCPzUBnzg4D1sNT1N6Vazy Zjcx5xj1dqHUEcPVviR51z hERwt2C5HQZpxJU3XBQvdP qsEmJsrT67 Oyc+IHFnkLmek2KwCcgna8 rex5yakBs1DxtxUGUaemCz cVbmFTO1f7GiLw0xZPIlgM P6mLS1lQ3w LyGhMjX6RPmwR980YjGkrA YuYuieQ29oV7DekVO+PHRy Zdu2YRBalAhhUP9yO1HbFM RpbmctbGVm dIzcUP3yYSOylupoQEKdzJ 4jWVLpX2c6UnVzHaG3DVoa A4FsQARuatdiYt46oM1oNc EoTqC8OTcw A1FmcaB3KEHzqPFnVKixPG G3H65ab3V2MKGmNHAhATV6 lRS9rO6vlSawtojscXZpmV sgdmVydGlj UXpcHRdzH416NROovYfpCc NvZGluZyBEYXRlOiAgMDQv MTkvMjAyMzwvdGQ+PHRkIH G0sExxZHJb fWQcWOtwGp1ryRjffRanJC 8hFIRaqvzbAZBafY6dWDTl yXKfzHkeZD0rUUNvcgbix7 62XqNwXDR0 YCInuKEoO1FbyZ7gVhVdUA KzIPNnG7YrsWNfKEmpU160 USoxCcX8MDEbmsNfD3SiDJ FsaWduOiB0 x0Y4Hp5Hc2BbunmzN6LkuN RgSoEtLsmdXKk6V2RsXgza dHI+GX66QYJcHL61EQb4VY S3fTrhCAom LSFaD0JivI7yFkKqTBWrVW RkOyc+PHRhYmxlIHdpZHRo IVsgPJLyTbYybJikKB9cPm 9yZGVyLWNv qDlbjUWuYtFfr8hhOWTfEF klTH9npIaoF8IyhFJ7YKAq x7n4Ti76W61sL6NcpOY+PG MjtMF6eBQ5 nB2hBmOlUjJ3NCahQ598Is BwlLQcUmvoj5ias1qhaDi9 XmI4RBNclwXcvBfzXIC7y6 EaZa92E83s IHdpZHRoPSIxNSUiIHZhbG awua1iaC7bYf6+PGNvbCB3 dYS7bZ4aRwZuHxM5SRncF4 49InRvcCIv Wwfmp6ovs1yhdNa9PuZsBL FcmvCezUpaMFX0p8WoJa46 Z4DnpDllh5BxVfq5to33tI Zei9U1eHI3 W7SbAOSvqwbuqOGttAbuCM 8iQUWenxszEHYbnZ3fFEVo C7z6UeBpVhL2KCmlS5Cvld C7EEVthCTt CRLotZFRfH1kscdtv1cebk vhJkQuOAOvHPs2CRd3XBVf sNtpSeWwTXM9CuP7QVH3uU DcjL1snMvr vlpwcP6wIfd+PIK8uIMcnO KOKR7mAoltyCG+PHRkIHN0 xWyyCYobTQXoiX1fNLHuW4 o8BuOoBdC4 VUtpV6JjguD5VAKiwWInMQ RekHEQvQ9mxfxyw0brfaur FnKuXECfGOw3BAq4FLMlgD duOiBsZWZ0 HmK9YJI6sWKwdI5goTgshm abiV0aUhq+QmlydGggRGF0 FVv3R7GmErm5ZIPudMnjBD 0ncGFkZGlu Mm2dsVlfoDzaLI0pUWIfku bvh352NkExl5ttUALqlDLr SXvxOSR9I39jx8J5OGSyFI IaBNF2sSC3 xP1mmEarixaqiWSnaBwyno BtxYjlIScbJLphW325TQIk oLgvXcQmFLb6L9AqLhd7CP XnvOosNB0n iWDnJHokDb9jcZaolXylQD 2hNTIwdczgc733NgEph3yn WIFjnAVeZOqkYWK1Q16ph0 M9NVEdFHGq RPH7uIA4hB5enIytigebqH VmdDsgdmVydGljYWwtYWxp I322TJQvqMocJqBqnFa1A4 UpKve2COYz zAldAP0ayBQaRSuyQb6uaK jipAgiGY3rIGQyxtnnj917 BgPwo4zuMCCghHMmDCgjJJ N6G27bz8A1 ZFSnJHQqCPW0gHY1xL6vqR lnbjogbGVmdDsgdmVydGlj FAvzPKylK889KFEayHvbFm BhdGllbnQg SVmyXFf8N7QnUwjpgDF+PC 54IBPyLF76tTFikRSam1ba lPx7UfCfBBYeGEI2kEzvLT lbw3WfCQJt B25xmMGtx6A9CCWslFwdpA SiQcEbsBR8kB5bBMxgujva f2ekgatdPqdvc8sooh72xV 99Q75aNMjx ZHRoPSIzMCUiIHZhbGlnbj 6hmC2kOo6+IGOfgBF8bMD4 qE0dTASmLgI7ZYqtQ123Jl RvcCIvPjxj f9lzh4hwiTm4AbZ2FSWpoy JzdYvtHLR5v8YeOy22J04p IHdpZHRoPSIyMCUiIHZhbG mpdu2ioQ4o Ii8+TAMbeAB9oTH8oP9vCj IqKtP5HKkwH961FpUytRQi KdphR41nY7HqgOP+PHRyPj z8LJMljEmx YJ0xnCJmLDliZw3gZJD2Kp SwSjXvKGqoO4BhCXHaysgu xgxayYE9LWTsNSRgxO15Mo 9udDogMTBw kMWXuF7nodagh1aaqzjfQn OfRITfHLl3BHx4HAJdeKyw ThKlNPS7HsC2IPW4kZLqbO 1hbGlnbjog jW7cX6QqKXAdhgliXf68oJ 1aMkWbAwT9YAfwKob+Qkla F5YLZmusCh7WAu2kZPehuU Q+PHRkIHN0 fLxuQFqeKGVubR5rAJTgV8 z7IwQxFpM4TRohA4ZzYGVt oadqKo80vI0eInNhEqV5EW zlQ5LcbxH2 HGIxeWYmQDdaZCS0T93mh4 Z5WVMzLQNaZDG3hMW7aH3o bGlnbjogbGVmdDsgdmVydG ljYWwtYWxp M104RQXziJvkRqE3TwYsNa K8PTH9Y2VcTlm4OZFymYlv HW5vrWChYTtoKv0ixXxeqF dvLB8ePZEn ezwbBXLbaM5hNJJmnVLohZ xeOS0fWUUlollwc156VmDc SIQ0TFEupBNxN1GwaQ4fDg AjMDAwMDAw T7HgxGHwKXnqG867WTmhFs B7TBUtzqGdX4DwCECorSdh JjJ8b8X2Yg94HnVYJMOkdd wvdGQ+PHRk QEQ6dKkcTPtxVHNndY4qXR LkU9t2LuLaVnD0VVlwU4Bn XRJsvzkdNh94gU2hNqMaVb H2RKfeK6Js mpL7TRIakWCwEVcfNFZ1V8 9yn7U9TIOaOMJvVIE9cOT4 cD2oiImmijubkGIxkCodzb VydGljYWwt SUihL512AOZsgNnzZyZzqJ FsZTwvdGQ+UIVjJDE2dXle MGoeALGwgP8tRYNoU9u3Yt HeUwV0ZKzv X9GiHONzneomJk99dE3mDg CuHjH3JUssV1IqkoA7NTOv fJZiHZezMRE3R95ox5O3IB MwMDAwMDA7 iAY4kL5vmYopvalveRRykH xxfmPywXpjIRphMEjhU218 WUWjhXbdFt20fSKlcHxgls R3F8SqTnxy dHI+LB41XDLrOB85iZYxlX Fjv8mjgQc7XnWqXINmUDW4 nSixHPume7VzHHQuF12ckQ Dxu4Y1SLHr xLkeuWTtWjNniOG2fC1zDH khysiwv8sqgkxkXfhdm3ie ye79jZ33S81aARvfRQSnWA IzMCUiIHZh iNbeuy1bvZ6gBq5+PGNvbC C1vLQ6fV1pSkDeNsR6BXjj Q629BbOibVFxLwjjp7lwx6 umqZb0ImZp CNKskaKfeRjoVEY1r4LeAp 71M28tDIgpGSEbRTTaZHWw SGDtuPwvri6cvT5hOj1+PC 2pp2lvup65 wU60oKS+ZKVfTUG0gNifPU tyZZSqbP7zZXfyVbG7VFZw JhFwvU69hRJbYXjoDp5kzP reiJwyNA1u VPJqmlvpz325UhXgm9igQN WehCEhXIcpRUN2Y83pg1Q6 BHAiIOLqZEK3oXP0nB8viJ lnbjogbGVm dDsgdmVydGljYWwtYWxpZ2 98XGPipGfwXmMduFAtH9ek iyHEXW2lBmociEM+PHRkIH Z2sZaoSNob ZBOkxK5pKLSrM9c8MwBdKd Y1VUzuG2TdytZ3VCLfrBTr BWGppUODrB6obuhgf0ysdp ogIzAwMDAw KSp8XKq5AIXzdCxmHpIbUD P4YdC1YLS2cPXsrK1mfOrn nvtiqP4jGin+RklOOjwvdG Q+PHRkIHN0 eBqmYGzqXCTjhY6pEHXkR8 v8PeCkYwC3MCvyJ7TzqkQ0 PDKnqJFkBJGbgFNPkM3uka aad6eryutx NtZlLIUzICb3PTn4TKXbvK jpKxOzCGE1UfQ9EUO6jPWn iJ0ruRlzzdpzuO2zRmc+TV JOOjwvdGQ+ MYLuPWQ9cHcjZCyrYATprC 0sDLDfK2f1GvXyYpX6EUvn F1XaycE2BGGxrBBjQLQbsZ DVkN7bxuhb p1tspabcYbVtWILgGIm0TX x6FAYrlCiqYkTwFXM6YyP8 KIT9qJGniN9tcQwnojovqB 9wOyc+UGF5 ZJX3RQ25KC17S2SyKibwpK FibGU+PHRhYmxlIHdpZHRo WSuyZHCoPcSanHdjSE9kRh 9yZGVyLWNv bGxhcHNl (more content not included)... Normal [facility] MRI Spine Lumbar w/o Contras ton 05-31-2022 [...] HERMINIO Technologist: FAYE Technical Comments None Normal [facility] XR Spine Lumbosacral Minimum 4 Viewson [...] spine. Lumbar vertebral body heights are maintained. Xazf-st-zosizbsn intervertebral disc height loss throughout the lumbar [...] in mGy = na DAP = na Normal [facility] Consent for Treatmenton 04- Consent for Treatment [id number]#1.0 0CD:127 Normal [facility] RAD - MRI Screening Formon 0 05-30-2022 RAD - MRI Screening Form [id number]#1. 00CD:127 Normal [facility] Physician Orderon 05-23-2022 Physician Order [id number]#1.0 0CD:127 Normal [facility] Physician Order [id number]#1. 00CD:127 Normal [facility] Physician Order [id number]#1. 00CD:127 Normal [facility] Workers' Comp Officeon 05-23 Workers' Comp Office [id number] [facility] [id number]#2. 00CD:127 Normal [facility] Coding Summary.on 05-14-2022 Coding Summary. CD:[id number] Ww +PGhlYWQ+YH7ESBZfA93kl DShqB6rI3AYYHaJYybxKMK YMNoMRgIzwhBvHY8hgUGcM XJu IC8+IX6pCKHmIvrbmRQyf4 L3zPC6R63zvm1mGFholJG3 REAsVvEtdtrxl0mkqYl5JF cuNmluOyBt BGPmsO20BYQ6oW92Eo66tZ AbnIRmm9sfhEz7KzXqOUXa QSA0lBpsOEoms8KkXKFwX6 5ytRUkg5U4 QKBhzZcxzDPiSiVqfKK6cA 5vURjhwyphv6olutdbHtd7 qe34rRYhs5R4dBK8L0Nvbe X7QMPxmZZt OrqckGOUoT9hcocvp7buyy yoPuTjPHGtCBh5NCw8FGNs rFuyCdVmHX29HZD7JVYjus YgC0GrSDQv jItkFcC2f5L4Gw4DM4MPCj maJ2HNLEISTJawwBM+PC90 ie91C6AhBannCwh3YOYpFU T4nGY2yX4m YPRjLLvwc8E2rUG6M8Kequ Huuc5it7ajZYOkBDpeS62e uGJze9C6XWTmqMC7YGZxtU vyDdOucL90 Oyc+JVIrfIkwh6YbGnozx3 msv0jzbYb7DypiPDRgtaDt pErpACB2x6XjRn2zTLXyeO R4kML1aO9i LuVhAoO9SOwuK908RpXmjW OiXgazB51lW6ZjbGD+PHRy Djg8SGLbuBwlSI2uB4IxZR RpbmctbGVm dIjdHJ5rGTNkkpkpQXKlzX 4vVWFnG9b4TlYuXyS8LMic C4RwAWQoulxbHy08rA7eZl MmQgD0HSnq Z9QcefH5LDEnyPApKYanOZ L4W75bv3B6LYOhSAWnOCJ9 vTS6wD4paSrjkialgYMorL sgdmVydGlj AShsOYkkW776TDTomOxgEx NvZGluZyBEYXRlOiAgMDMv MjgvMjAyMzwvdGQ+PHRkIH Z0sAtuKFYf jPGoBNaqNn0pwFbdlXgsJP 6eGNJvkntkOBYorF1jPFFm oKYhrAevOX4gDQLtixsqt7 52LnIdUSI0 IVSbvPNmA7NmjF3uSrTkVS FaSAXdA0OunQWpEImcK491 HNmpBrG8WCJuykQdJ4ShYT FsaWduOiB0 i5E5Pl3Ai6VixibkN3CrxB YqCqYzJnudGMa9U4JoQqoe dHI+GO21QSXkDH50KZw2LD V8hEcwFFvz GDNoV9YguJ1uOjYxWAVnTB RkOyc+PHRhYmxlIHdpZHRo CJcaLXWoNjPtgLvwGA0dDw 9yZGVyLWNv bIutrXBkMyQwr1nwOCXbFD naPW5rdNhrC2OchTD1MSSz q2s8Br39M40jV1UydKW+PG RheEK0yBD7 hX5lIgOnMeJ3ZPioN284Kx MksYZgGyakw0qhj6mbuPc2 QmF1YACqmiEioJhuXBZ5p0 ClSp27N96c IHdpZHRoPSIxNSUiIHZhbG ifpj4bsI0sJt0+PGNvbCB3 jMO3eT2nMmPvRjG7WMijC1 49InRvcCIv Mwglw0bcz0cemWr9TpRcYV SzwcXjiGukPDJ9u3SjQs02 B2GxjFbto8YtTlf0uv01jP Nbt9P5vEO1 H4AoHLLkkmjbiKAclJqmFK 8yGYLonjtqBBBefK2fPMJu X0d7QpRkGtZ3QLufY8Rgms P1VUQisAXw TFXpeXGKdZ3ekbuqm3kuxo gePvFtYSYbPMh6LVc7ZYSf dLnsKjJuVMV3UtS2NJF6rU TdgV5meNvq ocrgsM9aEic+SVF9fTHzfO VYKK6dAaulmDU+PHRkIHN0 iXekSBveBONlyM6lAYEfQ2 p5ZoEwFoG2 PNswY3KxkfG1XFWnlAPwMW KlqHXPiB3ekulmx2gxapru DbZxJUBjHOj3RZw3ZATcrF duOiBsZWZ0 WfR8LQT6jPDhfM9syAxwcp yvsS3eAqp+QmlydGggRGF0 STf4U2KhTvh9NSShdAgdZB 0ncGFkZGlu Ro9iqLiniSadPG0qRRUwqv juz440PjAea3uhZQCvtEXr ZVwzWZT7C19lm8F1LYStPF IxRFD8qUM0 tE6biGsktdrdlCBiaInctn LibDrdAFxrKLaeE382ZFSy tVwkHvJfZTj9A5GoTay3QL LeqSpwYR8l iJHzEUbgYa3vyZjihInsIH 2vSOHlvdnbg365KeXhc9lc NOLefOFxYPoeDAC1Z67na9 V1DNDfQMAk DGH3rMC3wC9jtHtmpkrhtG VmdDsgdmVydGljYWwtYWxp T742GUTjbPpdNnJecUg5Q4 KbDtn0JFMr lJadFU3buCXjMZnxYr9rxZ pvkJhjHE8qPCSilcssx359 VnWxl7fpCPHdePPnMTumGI O1D14cr7P1 EMDxWUQoLQR8dYJ9nC4crJ lnbjogbGVmdDsgdmVydGlj MUnnKQqlR324JXRucOetPk BhdGllbnQg XXiiBHc2T0UxZcbosIA+PC 93ECJbFJ33oWQctUHbo0sh lSh8YbMxUVTkDBV7dSutQM zfu4WmUPMv J54efGIqp4S9LYFcwLacfG NcDfDvzAW5mP8iPAkqizvg k5zfdtgbUhyzo9zgns65iO 99C25gVEwd ZHRoPSIzMCUiIHZhbGlnbj 1xzY7xEs6+OYUeqIN5fWN8 mU4vJBHbXcZ8KNuyW452Ny RvcCIvPjxj c1nbi3sbzHq9QqV1BGMsfy JljCjnOUG7d2SqDw08T44u IHdpZHRoPSIyMCUiIHZhbG sxmm7ggS3b Ii8+IOBdrQM9zNE6pI6gUi PwYeT2TQjzT631ViLsxUBz VnzzX21sB4HhdXZ+PHRyPj e5EVAheZgj UG1zeZBjQGjkSv8gFNP8Ny SyJkLnILfjZ8QkYNJheirq jbkcdXF7AWLgRJAjqK05Nr 9udDogMTBw kGTMvY2vutupi2flziveDa RlGPHiZSz0CDu5LVWcvQgj WxNgXVT1YrB1AKJ0eMAigK 1hbGlnbjog mO9kJ2TePMTqmjjtUv65vB 2yCgEgQoQ2DUlqFek+Qkla R4MIGbdnUb5UJj7jMUwxnS Q+PHRkIHN0 oRiyQPcyIVBpgM1rIPNbC2 h5PhStKvY7NOfaU3AlAJId arekUl09yI6uGiQoRuU0WQ pcL5OtciA8 MCXuyAQmQFvoSPH4R16bk5 A0VEHcEKQyKUV4sDB6mT0q bGlnbjogbGVmdDsgdmVydG ljYWwtYWxp Q715EDAhzNapKzA0IlHlNm D3IVG4N0AdBgv3TUQmeWac RN2znFGoKYikEz6hvXgwaP myOU4dWYNe kqvzQXCtuC2cHWMdgGHicK jrEQ3pXUVkhrdcv116JuYl XWX7XLAiyDItI4TvyQ2vKf AjMDAwMDAw G7FzfXUaUSheZ029QYllHa X6TDZslsFyQ9TaEWUvbQnv LzU1i1F6Oh93HtLGOJCluj wvdGQ+PHRk BXT5dNvyBFlfYKJwbI9eKP IvE9u9HvSbIpW1ZHgmC3Ou FXQhraqaWl75pO3xEdXvLh Q1LJrtF2En muA7YSIxvPAsUUooDSV2I2 2ej1T6EEVdUBKgPCM6gWO1 pE4jhFivprgixZSkqXpedj VydGljYWwt FAteO342BWHuiNerFnQivQ FsZTwvdGQ+XDZjNVD3jIzf LBgcTVYamF8fISZwZ8g9Ou YiFwQ5UUwj H5YzVETozgekPo25hD4lVi HjUhF0EWkyD9TybeP9WPXf qOKpTVofXYZ0G49ab4U9DE MwMDAwMDA7 xCJ9cC9ciMxbourcpYNitG zshpBwoIhlYIdqYLtvZ007 ZRKweHqkAfVfbU7fEFVeUY dlbWVudDwv dGQ+XG57wx82K7EsQpgiLt m8IKCbWZF1oQG4lB4aSUUy XTyti9P7tWZ3H9BawqKygp 0tf3sqWKLg IAmkR70aaWPte5P8FNRddX W4FVUddKhqNqJzcU83Ppq+ YOGdkAzvb6KjQepyy9myb1 zstRo8IwEq OBNyncBicOcbVDO1a1HqGy 25J91pSTvmQWPnYNYlXAPl UDQzfHuzjs3goC7hMt4+PG IduWX3dUP3 vQ1wZrWyCzG8JUohV379Qb TcuKMhXauzl5img8lfdZz1 PkTqLWHlypBteRhtLMN2z2 HdCf45Z7Pr wFuxr4PlEye3lj71fPFat2 S6sGH0Y5EhKSWnfywlnIJo mQkhPE5nMHLjwetdIAIssN 9rOIFpG0d6 FbJvKzX0ATxsW7OixfC4XQ QsjWDvXTZvfWOZbA2mfthu t8fgzuofEwIvBLVsZNn7CR n3TKAwnNzs IaEgZEN8PqA8MYZ1xFGppW 1dcYljkjcgdF8kAln+UGh5 v2vvwCJiKW9uiLG8HC26LJ 36mRTpd3B5 wTR3P7YgEAZyhoxynzkqzB V5VOFcKNEciG24Iv0iaWce Tu1sQKMtUDF0DTAtcUVjG1 SqqY7qJoBr SSGsUPEyC7QyhSJdCQknY9 94UReiKyJ2PQGnzgLxA2Ai QIHdiRcgNxW4o0I9Ct1BWW 48KX41IY12 aYInc7U4rGL8A8VxHKJelg vurpwtlCT3UIUmLHXydJ44 Dp3kqToxOi9bGGRkVNY6LP GtqVGkG5Tv dZ6yMqJgNVTkTLFmI8MrhL EwAZxgA644TPbkSnM9BHQl paSzP4GiSFMumDbxKxM7k8 R3Um3EWf23 UF44EQ94eJXsg3I6dMF2M2 UcKURfpookgxkhrSX9UZTm XXDlpL08Uh7kvGlyDd3kTL NfGZI2UFHq yZGrR9CenP6uBrMtWGCcOX XpU8TeyXYgJJlgA656BKej IiI5NTWoyiWbW4JkPYNwjQ gjNjA0d6V0 Uj8XAMbgqmu9J2ZwWchpnS I+AN06RLCgSA02lNQhkQUq g7romJw2AvLdCPOvXHE3lD tsBLldp4Uh DGXzU99r (more content not included)... Normal [facility] US KIDNEYSon 05-14-2022 US KIDNEYS EXAMINATION: [...] by: SOFIE PATTERSON Date: 2022-05-14 14:20 Normal [facility] Consent for Treatmenton 04-18 Consent for Treatment [id number]#1. 00CD:127 Normal [facility] Legal Correspondence Officeo n 05-09-2022 Legal Correspondence Office [id number]#1. 00CD:127 Normal [facility] Office/Clinic Note-Physician on 05-09-2022 Office/Clinic Note-Physician [id number]#1. 00CD:127 Normal [facility] Patient Correspondenceon Patient Correspondence [id number]#1. 00CD:127 Normal [facility] Patient Correspondence [id number]#1. 00CD:127 Normal [facility] Patient Correspondence [id number]#1. 00CD:127 Normal [facility] Patient History Officeon Patient History Office [id number]#1. 00CD:127 Normal [facility] INSULINon 04-26-2022 Insulin 25.3 uIU/mL Critically high 2.6-24.9 [facility] Comment on above: Performed By: #### I NSULIN ####[facility] [address] [place] [address]Dr. Marion Bullard CBC AUTO DIFFon 04-25-2022 BASO # 0.1 103/ul Normal 0.0-0.1 [facility] Comment on above: Performed By: #### C BC #### [facility] [address] [place], [place] [address] Dr. Marion Bullard Basophils/100 WBC (Bld) 0.6 % Normal 0.2-2.0 [facility] Comment on above: Performed By: #### C BC #### [facility] [address] [place] [address] Dr. Marion Bullard EO # 0.2 103/ul Normal 0.0-0.7 [facility] Comment on above: Performed By: #### C BC #### [facility] [address] [place] [address] Dr. Marion Bullard Eosinophils/100 WBC (Bld) 1.1 % Normal 0.9-7.0 [facility] Comment on above: Performed By: #### C BC #### [facility] [address] [place] [address] Dr. Marion Bullard Erythrocyte distribution width (RBC) [Ratio] 12.7 % Normal 11.0-15.0 [facility] Comment on above: Performed By: #### C BC #### [facility] [address] [place] [address] Dr. Marion Bullard Hematocrit (Bld) [Volume fraction] 43.8 % Normal 36.0-48.0 [facility] Comment on above: Performed By: #### C BC #### [facility] [address] [place] [address] Dr. Marion Bullard Hemoglobin (Bld) [Mass/Vol] 14.6 g/dL Normal 12.0-16.0 [facility] Comment on above: Performed By: #### C BC #### [facility] [address] [place] [address] Dr. Marion Bullard IG # 0.11 10e3/ul Critically high 0.00-0.03 [facility] Comment on above: Performed By: #### C BC #### [facility] [address] [place] [address] Dr. Marion Bullard IG % 0.7 % Critically high 0.0-0.5 [facility] Comment on above: Performed By: #### C BC #### [facility] [address] [place] [address] Dr. Marion Bullard LYMPH # 3.1 103/ul Normal 1.2-3.8 [facility] Comment on above: Performed By: #### C BC #### [facility] [address] [place] [address] Dr. Marion Bullard Lymphocytes/100 WBC (Bld) 19.4 % Critically low 20.5-60.0 [facility] Comment on above: Performed By: #### C BC #### [facility] [address] [place] [address] Dr. Marion Bullard MANUAL DIFF REQ NO Normal [facility] Comment on above: Performed By: #### C BC #### [facility] [address] [place] [address] Dr. Marion Bullard MCH (RBC) [Entitic mass] 29.9 pg Normal 26.7-34.0 [facility] Comment on above: Performed By: #### C BC #### [facility] [address] [place] [address] Dr. Marion Bullard MCHC (RBC) [Mass/Vol] 33.3 g/dL Normal 29.9-35.2 [facility] Comment on above: Performed By: #### C BC #### [facility] [address] [place] [address] Dr. Marion Bullard MCV (RBC) [Entitic vol] 89.8 fL Normal 81.0-99.0 [facility] Comment on above: Performed By: #### C BC #### [facility] [address] [place] [address] Dr. Marion Bullard MONO # 1.3 103/ul Critically high 0.3-0.8 [facility] Comment on above: Performed By: #### C BC #### [facility] [address] [place] [address] Dr. Marion Bullard Monocytes/100 WBC (Bld) 8.1 % Normal 1.7-12.0 [facility] Comment on above: Performed By: #### C BC #### [facility] [address] [place] [address] Dr. Marion Bullard NEUT # 11.3 103/ul Critically high 1.4-6.5 [facility] Comment on above: Performed By: #### C BC #### [facility] [address] [place] [address] [address] Marion Bullard Neutrophils/100 WBC (Bld) 70.1 % Normal 43.0-75.0 [facility] Comment on above: Performed By: #### C BC #### [facility] [address] [place] [address] [address] Marion Bullard Platelet mean volume (Bld) [Entitic vol] 8.5 fL Critically low 9.5-13.5 [facility] Comment on above: Performed By: #### C BC #### [facility] [address] [place] [address] [address] Marion Bullard PLT 488 103/ul Critically high 150-450 [facility] Comment on above: Performed By: #### C BC #### [facility] [address] [place] [address] [address] Marion Bullard RBC 4.88 106/ul Normal 4.20-5.40 [facility] Comment on above: Performed By: #### C BC #### [facility] [address] [place] [address] [address] Marion Bullard WBC 16.1 103/ul Critically high 4.0-11.0 [facility] Comment on above: Performed By: #### C BC #### [facility] [address] [place] [address] [address] Marion Bullard FREE THYROXINE INDEX T7on FTI 2.69 Normal 1.30-4.50 [facility] Comment on above: Performed By: #### L IPID, CMP, T7, TSH ####[facility] [address] [place] [id number]. Marion Bullard T3U 34.0 % Normal 30.0-39.0 [facility] Comment on above: Performed By: #### L IPID, CMP, T7, TSH ####[facility] [address] [place] [id number]. Marion Bullard T4 [Mass/Vol] 7.90 ug/dL Normal 4.80-13.90 [facility] Comment on above: Performed By: #### L IPID, CMP, T7, TSH ####[facility] [address] [place] [id number] Bullard GLYCOHEMOGLOBIN A1Con 2022 ADA RECOMMENDATION SEE BELOW Normal [facility] Comment on above: Result Comment: ADA RECOMMENDED LIMIT 4.0 - 6.0 ADA THERAPEUTIC TARGET < 7.0 ACTION SUGGESTED > 7.0 Performed By: #### A 1C ####[facility] [address] [place] [address]DrSolitario Bullard Glucose [Mass/Vol] 120 mg/dL Normal [facility] Comment on above: Performed By: #### A 1C ####[facility] [address] [place] [address]DrSolitario Bullard HbA1c (Bld) [Mass fraction] 5.8 % Normal 4.5-6.2 [facility] Comment on above: Performed By: #### A 1C ####[facility] [address] [place] [address]DrSolitario Bullard IRONon 04-25-2022 Iron [Mass/Vol] 94.0 ug/dL Normal 50.0-170.0 [facility] Comment on above: Performed By: #### I NANCY #### [facility] [address] [place] [address] [address] Marion Bullard LIPID PROFILEon 04-25-2022 CHOL-HDL RATIO NORM SEE BELOW Normal [facility] Comment on above: Result Comment: 3.3 - 4.4 LOW RISK 4.4 - 7.1 AVERAGE RISK 7.1 - 11.0 MODERATE RISK >11.0 HIGH RISK Performed By: #### L IPID, CMP, T7, TSH #### [facility] [address] [place] [address] [address] Marion Bullard Cholesterol [Mass/Vol] 193 mg/dL Normal <=200 [facility] Comment on above: Performed By: #### L IPID, CMP, T7, TSH #### [facility] [address] [place] [address] [address] Marion Bullard Cholesterol in HDL [Mass/Vol] 49 mg/dL Normal 40-60 [facility] Comment on above: Performed By: #### L IPID, CMP, T7, TSH #### [facility] [address] [place] [address] [address] Marion Bullard Cholesterol in LDL [Mass/Vol] 122.4 mg/dL Normal [facility] Comment on above: Performed By: #### L IPID, CMP, T7, TSH #### [facility] [address] [place] [address] [address] Marion Bullard Cholesterol.total/Ch olesterol in HDL [Mass ratio] 3.9 {ratio} Normal [facility] Comment on above: Performed By: #### L IPID, CMP, T7, TSH #### [facility] [address] [place] [address] [address] Marion Bullard HDL NORMAL > or = 60 mg/dl - LO W CARDIOVASCULAR RISK <40 mg/dl - HIGH CARDIOVASCULAR RISK Normal [facility] Comment on above: Performed By: #### L IPID, CMP, T7, TSH #### [facility] [address] [place] [address] [address] Marion Bullard LDL CALC NORMAL SEE BELOW Normal [facility] Comment on above: Result Comment: <100 mg/dl OPTIMAL 100 - 129 mg/dl NEAR OR ABOVE OPTIMAL 130 - 159 mg/dl BORDERLINE HIGH 160 - 189 mg/dl HIGH >190 mg/dl VERY HIGH Performed By: #### L IPID, CMP, T7, TSH #### [facility] [address] [place] [address] [address] Marion Bullard Triglyceride [Mass/Vol] 108 mg/dL Normal <=150 [facility] Comment on above: Performed By: #### L IPID, CMP, T7, TSH #### [facility] [address] [place] [address] [address] Marion Bullard VLDL CALC 21.6 mg/dL Normal [facility] Comment on above: Performed By: #### L IPID, CMP, T7, TSH #### [facility] [address] [place] [address] [address] Marion Bullard PROF 14(COMP METB)on 023 Albumin [Mass/Vol] 3.4 g/dL Normal 3.4-5.0 [facility] Comment on above: Performed By: #### L IPID, CMP, T7, TSH #### [facility] [address] [place] [address] [address] Marion Bullard Albumin/Globulin [Mass ratio] 0.9 {ratio} Normal [facility] Comment on above: Performed By: #### L IPID, CMP, T7, TSH #### [facility] [address] [place] [address] [address] Marion Bullard ALP [Catalytic activity/Vol] 93 U/L Normal 46-116 [facility] Comment on above: Performed By: #### L IPID, CMP, T7, TSH #### [facility] [address] [place] [address] Dr. Marion Bullard ALT [Catalytic activity/Vol] 26 U/L Normal 14-59 [facility] Comment on above: Performed By: #### L IPID, CMP, T7, TSH #### [facility] [address] [place] [address] [address] Marion Bullard Anion gap [Moles/Vol] 12.7 mmol/L Normal [facility] Comment on above: Performed By: #### L IPID, CMP, T7, TSH #### [facility] [address] [place] [address] [address] Marion Bullard AST [Catalytic activity/Vol] 21 U/L Normal 15-37 [facility] Comment on above: Performed By: #### L IPID, CMP, T7, TSH #### [facility] [address] [place] [address] [address] Marion Bullard Bilirubin [Mass/Vol] 0.5 mg/dL Normal 0.2-1.0 [facility] Comment on above: Performed By: #### L IPID, CMP, T7, TSH #### [facility] [address] [place] [address] [address] Marion Bullard Calcium [Mass/Vol] 9.1 mg/dL Normal 8.5-10.1 [facility] Comment on above: Performed By: #### L IPID, CMP, T7, TSH #### [facility] [address] [place] [address] [address] Marion Bullard Chloride [Moles/Vol] 104 mmol/L Normal 98-107 [facility] Comment on above: Performed By: #### L IPID, CMP, T7, TSH #### [facility] [address] [place] [address] [address] Marion Bullard CO2 [Moles/Vol] 29.2 mmol/L Normal 21.0-32.0 [facility] Comment on above: Performed By: #### L IPID, CMP, T7, TSH #### [facility] [address] [place] [address] Dr. Marion Bullard Creatinine [Mass/Vol] 0.68 mg/dL Normal 0.55-1.02 [facility] Comment on above: Performed By: #### L IPID, CMP, T7, TSH #### [facility] [address] [place] [address] Dr. Marion Bullard EGFR-AF PRYDEINIG >60 Normal >=60 [facility] Comment on above: Performed By: #### L IPID, CMP, T7, TSH #### [facility] [address] [place] [address] Dr. Marion Bullard EGFR-NON AF PRYDEINIG >60 Normal >=60 [facility] Comment on above: Performed By: #### L IPID, CMP, T7, TSH #### [facility] [address] [place] [address] Dr. Marion Bullard Globulin (S) [Mass/Vol] 3.9 g/dL Normal [facility] Comment on above: Performed By: #### L IPID, CMP, T7, TSH #### [facility] [address] [place] [address] Dr. Marion Bullard Glucose [Mass/Vol] 103 mg/dL Normal 74-106 [facility] Comment on above: Performed By: #### L IPID, CMP, T7, TSH #### [facility] [address] [place] [address] [address] Marion Bullard Potassium [Moles/Vol] 3.9 mmol/L Normal 3.5-5.1 [facility] Comment on above: Performed By: #### L IPID, CMP, T7, TSH #### [facility] [address] [place] [address] [address] Marion Bullard Protein [Mass/Vol] 7.3 g/dL Normal 6.4-8.2 [facility] Comment on above: Performed By: #### L IPID, CMP, T7, TSH #### [facility] [address] [place] [address] Dr. Marion Bullard Sodium [Moles/Vol] 142 mmol/L Normal 136-145 [facility] Comment on above: Performed By: #### L IPID, CMP, T7, TSH #### [facility] [address] [place] [address] Dr. Marion Bullard Urea nitrogen [Mass/Vol] 13.0 mg/dL Normal 7.0-18.0 [facility] Comment on above: Performed By: #### L IPID, CMP, T7, TSH #### [facility] [address] [place] [address] [address] Marion Bullard Urea nitrogen/Creatinine [Mass ratio] 19.1 mg/mg Normal [facility] Comment on above: Performed By: #### L IPID, CMP, T7, TSH #### [facility] [address] [place] [address] Dr. Marion Bullard PROTIMEon 04-25-2022 INR Coag (PPP) [Relative time] 0.95 {INR} Normal [facility] Comment on above: Performed By: #### P TT, PT #### [facility] [address] [place] [address] Dr. Marion Bullard INR GUIDELINES SEE BELOW Normal [facility] Comment on above: Result Comment: YARELI RED INR: 2.0 - 3.0 CONDITIONS NOT LISTED BELOW 2.5 - 3.5 FOR PROSTHETIC HEART VALVE REPLACEMENT 2.5 - 3.5 RECURRENT THROMBOSIS Performed By: #### P TT, PT #### [facility] [address] [place], [place] [address] Dr. Marion Bullard PT Coag (PPP) [Time] 10.1 s Normal 9.0-11.6 [facility] Comment on above: Performed By: #### P TT, PT #### [facility] [address] [place], [place] [address] Dr. Marion Bullard PTTon 04-25-2022 aPTT Coag (Bld) [Time] 27.3 s Normal 22.3-36.2 [facility] Comment on above: Performed By: #### P TT, PT #### [facility] [address] [place], [place] [address] Dr. Marion Bullard TSHon 04-25-2022 TSH 3.782 uIU/mL Critically high 0.358-3.740 [facility] Comment on above: Performed By: #### L IPID, CMP, T7, TSH #### [facility] [address] [place], [place] [id number] Dr. Marion Bullard XR HAND LT MIN [...] by: JANNA SON Date: 2022-03-29 16:06 Normal [facility] Coding Summary.on 03-21-2022 Coding Summary. [id number] Gh 0bWw+PGhlYWQ+IB7YVDIxX 50kpKSxmL5HB0dIMB8ZMVD RMTIRLR0SAB6upAN1XBdnW 2VybiAv JacpgMLdBY56IAl2DBW0jY hnRSevcO9rvSAdS4x7ZgEb YM41gU90TZifJRPrSqY6Cp ZpbjsgbWFy K4tmJqUnqHFgIqn+PHRhYm xlIHdpZHRoPScxMDAlJyBz pPhbMR0oYs9yFIJwFOOpeL xhcHNlOiBj c5imYCLtNNtrKC2sbXquX7 NypXH3TPEbn0r1Pr90qFE+ VMJuLHE1jIypYVuub694Af Ggh2gzYMM7 cNPxXYejEPI6W75uq1K9HD HkGEFhYKO0gLF5gA7dyCkj fvzmE9GhaNHlUfG7RTS8eZ LzeD8ctQho btfghP8rCpn+K04WRR5RAG TKVD6MTlb3B1EaAgbxbFJ+ BL63OMUiHL81jKIwdPSft5 mvnMs8UaGy AQGoHER3mBvlFVpfl1ZwXT TrT66dzEOen0B9QQRcsWcu eUJmWpSekZL3kI6tGOpvgz wnq0pniqvy Frcjv2adxd16aE38H05dHA xfBLQtFLR5CMYxBUCuhEnn gi2xfS1tZh4+KReny9vta3 cqxSn8QfYz DYZmxzHxyRnyWSD7m5GxZu 99G9NwnYuiv2CdOhm9py75 dIAam5B1rYO4SIzpJQQluC 4vLLpfDeU8 TZFyIyBqxO64wKVdGIbhWs 2gmMrdyUfrUX2vSPNtwtmc KKKjtZ4iOFHsyPLozEuqVV 4wNTBpbjtm k654OxOnGGK7NYScqJKfH0 IchX8oLhGaYHJgNTZtZ8Cn dVXgGRenL565TBfiWzG0KM QykcZaG9Us FZGarHuiRqY4p3Z3By1Tf0 RnfigwGOS7KXunJDIxMdBk FbYwVcT2Y2OkLpm7OLWibN xoZT0uR6Fz NKFlyccudrmqqRS6BRToRO IjoU39xYYzIKrpWy8ln4X9 p927SITdYYRoqS62Zk8nlJ ogMTBwdCBU lS0uwvjaz8wuzmehBwVpKV LnNWp9LYw5UBGkkQqaRrVo GKC5LtE9STA4fTGquM5ovS ukitsxxJ4t Oyc+N63swV0rPGT8UOF1dd pwYTNpnaUoKX46HI92U8Uu PjwvdGFibGU+PGRpdiBzdH phSH4rJaUn j4hax1KxXWzkO3TnTOKhJA arWvv5ZKSwZQY8uMC3cB2e NHLdXGzmv6W2tGG8R1Jlht Qysn9vh5kd EEUtVWewS45kkWXpk3G9FZ KuoZJ7GJGpnKmfZaLelT28 Oyc+FPRxfJbld7BaUzflk9 bxs7wshSe3 UjRcZWEcuhErqCerAWJ9a3 OoQd15V11oZSwePOQsTQFi WLRmHZBgsRcuuo4xpT5qMo 8+PGNvbCB3 yXO6vP1lOYMeWqR4YBhfU7 70EuPfoGZsDghtd6lyb8rf qPn2NdVhOHYpbxOeiTaxMT E2b1IaCp85 U16zCCnzJEQqTKKyQBApLH OfiYfnmx1qdA1tJf7+PC9j n5ufvq61mE80yDO+PHRkIH P9xNvqIXhu EHDfyK5kFEvfYeS7LMTaZe JrfM94tAEqYTteHq6keBup oCqpZR6nYRStdrvqq919Ak Guy1xfMGLr tWXpKGisAHL5D35ml8R7WH UoMKCmXFJ6wAP0pP8pcGru bjogbGVmdDsgdmVydGljYW jbMOnnE127 IHRvcDsnPlBhdGllbnQgTm VlHWe7Q8YfGth0MWQrgIoh YK7njECrIUpaTj9idMuzcO ebDB1dIBNp vsifh823ZpAyi7nrXESsdP QyCShsZOR2I16ko5Z4XBMw IGNtQXY8tEJ4fE5sjAvzho ogbGVmdDsg iuIudGchSZyrQVeqV186FT RvcDsnPkJpcnRoIERhdGU6 IE27BN75qBIdr7O1jAM9J1 BhZGRpbmct yuhkqUE8KTTiNAAmbY07Qu 0iqTlcDq7jEKRmTJH2KSUf pIAaG5LgiI6jMyWzTYBoQM LkS1SngJYk QFijS066UGqdQeL7XTQaar YpE3IsVXIdzBmrUzZ4o5P1 Ah6MC2J4MW86DU57pFClt8 S0jCG3P0Zp CVAijxslpvaipJK6MXCcOZ BzxO60Pl7idBviEs4tRHQs SFE9OFAzeIBuC8QgcW8iZy AjMDAwMDAw F8UtsLOgPIrdK432NReePb S6KOSvroCvZ3KuOUMceLmf EwZ5b5P9Qf7QYNm7TZ03XF 59vEOsn9P0 oOF5G8TrNRBxxhppicrwhT I3JCTkOEZtsH17Nf1aqDxj Jn5fBKNvRQW3UCPgiQSuU2 MkhD0oIzHa XAIjZZOrB2TeeNFmOYebH4 40ORihNpJ0YDOdhnYkL7Es CXPzoDiyGkI4u9U5Zf8HCN UnOV08YWJ6 vST1NL57QA29F8RaRxcmtB FibGU+PHRhYmxlIHdpZHRo XPveIARqRjCieTpiVU7hNx 9yZGVyLWNv kTyieIFnRbItb6mtDTIjCX cwXA3yyPnnQ4SvnOV4AIEu s8p6Ja84O95tQ9DbrCU+PG DnjXE2pTE2 nW6uBeQcHqX1EKbjM871Ry MqqNKvYmlmp5uju3unqWd7 LhW9TRYqxsAalCjkRPK6g6 EpIo81E38u IHdpZHRoPSIxNSUiIHZhbG dada9mjO5cFu0+PGNvbCB3 rCR7fO8kOlYfCvH7CHjeZ1 49InRvcCIv Syeqx9wco7oseLa9LeEvAF EyhjIvjYkeKQQ1n8CoKt90 B3UoqXmql7XqKys0ab85yW Okd5W3gGN9 R4ZrMIBdidwgeLRobGgcTY 7eXJNpredkRBIgnD7ePOWi O4p4RvGdHwG1GPasU2Mnzk N4DNRvlNYh HHymJZL1C13so2W3UVMkPA WbOLG7jLO0vO4ieKvppqpj bGVmdDsgdmVydGljYWwtYW lcZ469PHWz cRtcJXDumC2uHHZkdGAicN giJJ0cEBTsdurqHtHGEp5C GXzxYQlMFI0FRZ94X7WfDc n6TIEujHiz BT1eeAWsWIvxGg5jzNwskD onNS3zWFLynvjkNKLifJ4u VQPtuZIywVipAA7tNJTkjj uue052PhAx GOK9JSAgbGZgG0WhhE5rZk JiEITvBKGbW3BfbQIdZRax V699MJwmIeY7VQPpmlFpP3 FsLWFsaWdu MjM0w4I3Kw8xFJ6gSf8nYE G1MR49WG48bQOov1P9dZY1 O1CtLSOusvjfgcrulYH1YT MzYXYciF62 cUTbNKpqTc6xn0Z7e417UI NhSLVqqG37Rp4fsQseEFMw lHKGqB6cdohks5myatjsEz AwMDAwMDt0 JUg6WRPirOkbDqNvVCH7Tp C3CDC6hBVjuZ8ffTrvjwve xF2vIzx+QwVoCRVlhnN5O1 MjZjv9JYRx hPkkZV3szDNpKKitHb9qsG jciJlpKZ1wIFZbcawxPDRa bN0dQKGwhNAggVldKE5jCY Mzuedsw779 WpXwMBF0UKWtrWZuF9KosH 4gWmKlEFVpITWtE0PwmSIv YWfoF416ALtmHgV5LXGhbl PhV5AsTTTe gNwxEvS1z2X2Wu8WNR4muO W0L7MhYvt9NBWyrHkqMS8e lPRdYGxsOd8bgFcjeJdsII 4wNTBpbjtw JNNxoS5sZDPsoPYolCtlIY 2mLGWgbdcrx257VnBtYDX3 DZJytDIfZ7NorW2vDjWuYB OwIYAqL2Ec eXPnLBcuY220IHxnDzT8WZ TnplWgW9VlCMAoqVkcPpH1 i4A2Pd1AEKzfUZ6rdlPcYU 5zvjJ7N8Vq PjwvdHI+DY20GGEtFL56aL ZwmPRtf8gvbDp0RgKuKIQh FVA4wBwwXQnkk3PrMBSmP2 8kdPOzy8B8 UTSzbIyewNFqRqQqkBP1vR 0lHYvlykraj1tvdyjqYrwg d8riju01iG30W31yWUqdYW RoPSIzMCUi TULibEwcbv4yrF1zEh3+PG XvvFW5iYJ3iK2lQpOcFrL7 EYobU540BiXkfUGuQkvyp2 bfa5qbnOa8 EoStYOHwtiHerEfnQCU7e5 JvWr48X58nLTfvOESrNFFw FTCbENVbcFjwub1pyZ7oDu 8+PX8vi3ck tz36gT34mDF+WLMpBEA8uI cxCSqjBRBmeC8lBItbLpB0 RDXpTqIpdP01qJMjWLxgLj 1yaWdodDog BT9tINByhpldc559GmFtb7 zfGAKaiMMuDFtbMQW4O74f e0G5OSYnDFWbLFH3sAA2iO 1hbGlnbjog bGVmdDsgdmVydGljYWwtYW ayS278SAEhkBezLyVzeJQi R7hmylUWVK6eYzpfrTE+PH AlYQZ1iUvw VDuiHLYqaQ2sSGBiB4c9Ls KiSpF5VNnmL1UwrtF4GQUw kARlGLKbuYQKhT3dbfunm9 xvcjogIzAw VWCnOMp1XSx4QODlwJfcPv RmHLI5XoO9NNR7tHNgzU6g xNyvtlsntJ7gPnz+RklOOj wvdGQ+PHRk QHT5kAkvSPduXKUfcC8dHU MoU7n4RqSjEwE5JBsvA4Dw fgL4SBKvoZDjZIPpqRNJwK 0uicqsy8uf scouMbKpBRShGPy7ZRu4OD HtvJnaQkJrMVL7NiL3MWI3 kLQzyV0lwAywqedaaM7wMq c+TVJOOjwv dGQ+TBYpNVF8jTdaEEfoIS MqhT8yKRGiR9u2JpXwKhE3 YPyrH9EfmbP5QYHtfCNkPZ OsdHBNqZ7a uzfhy0tehirkVjLvXUNyOX k5AUm4HYOuiLskJcXjBRO6 UsF3NTQ8gFAzsJ5xzZmcvb eohG4yFgd+ HBR5PSF9GQ84LC21M9GaZu wvdGFibGU+PHRhYmxlIHdp ZHRoPScxMDAlJyBzdHlsZT 8fKm8mICUn LWNv (more content not included)... [facility] Consent for Procedure/Surger yon 03-20-2022 Consent for Procedure/Surgery [id number]#1.0 0CD:127 [facility] Consent for Treatmenton Consent for Treatment [id number]#1. 00CD:127 [facility] Discharge Instructionson Discharge Instructions [id number]#1.0 0CD:127 [facility] IntraOperative Documentson 0 03-20-2022 IntraOperative Documents [id number]#1.0 0CD:127 [facility] IntraOperative Documents [id number]#1.0 0CD:127 [facility] Main OR Intraoperative Recor don 03-20-2022 Main OR Intraoperative Record IntraOp Document Type FTPM Summary Primary Physician: Gerald Pham MD Finalized Date/Time: 03/20/22 13:43:47 Pt. Name: SHELLY HUMPHREYS/Sex: 1955 Female Med Rec #: [id number] Physician: Gerald Pham MD Financial #: [id number] Pt. 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 Owner Operator Truck Driver - Primary Scrub - Primary Time In [...] Ronak Rodriguez Role Performed Staff - Other Company Marker Time In 03/20/22 13:34:00 03/20/22 13:34:00 Time Out 03/20/22 13:43:00 03/20/22 13:43:00 Procedure LUMBAR EPIDURAL STEROID LUMBAR EPIDURAL STEROID INJECTION(.) INJECTION(.) Comments Last Modified By: Mary ROSE, Addis Malone RN 03/20/22 13:43:41 03/20/22 13:43:41 Perioperative Protocols FTPM [...] No Time Out Betsy ROSE, Diane Alva, Benito Kramer RN, Ankit Hare MD, Mary Duarte [...] and tissue Entry 1 Skin Integrity Intact, [place], Warm, and Skin Abnormality No Dry Outcomes [...] Extended Posit (more content not included)... Normal Alves [facility] Main OR Preoperative Recordo n 03-20-2022 Main OR Preoperative Record Holding Area Document Type FTPM Summary Primary Physician: Gerald Pham MD Finalized Date/Time: 03/20/22 13:30:04 Pt. Name: SHELLY HUMPHREYS Rei Lawrence/Sex: 1955 Female Med Rec #: [id number] Physician: Gerald Pham MD Financial #: [id number] Pt. Type: P Room/Bed: / Admit/Disch: 03/20/22 [...] Signed By: Brittnee Blackburn RN 03/20/22 13:30 [facility] Operative Reporton Operative Report SURGERY DATE: [...] condition. Gerald Pham M.D. lr Dictated: 03/20/2022 [id number] Transcribed: 03/20/2022 [facility] Comment on above: Result Comment: Elec tronically Signed By: Ankit HUDSON, Gerald\.br\Date and Time Signed: 03/20/22 16:39 EST Patient Correspondenceon Patient Correspondence [id number] 0CD:127 [facility] Vital Signs Date Time Vital Sign Value Performing Clinician Facility 02-21-2023 15:11-0500 Diastolic blood pressure 101 mm[Hg] Nyasia Helton [facility] 02-21-2023 15:11-0500 Heart rate 74 /min Nyasia Helton [facility] 02-21-2023 15:11-0500 Mean blood pressure 116 mm[Hg] Nyasia Helton [facility] 02-21-2023 15:11-0500 Respiratory rate 18 /min Nyasia Helton [facility] 02-21-2023 15:11-0500 Systolic blood pressure 147 mm[Hg] Nyasia Helton [facility] 01-20-2023 13:49-0500 Heart rate 81 /min Barry Neeraj [facility] 01-20-2023 13:49-0500 SaO2% (BldA) [Mass fraction] 98 % Barry Neeraj [facility] 01-20-2023 13:49-0500 Diastolic blood pressure 84 mm[Hg] Barry Neeraj [facility] 01-20-2023 13:49-0500 Mean blood pressure 109 mm[Hg] Barry Neeraj [facility] 01-20-2023 13:49-0500 Systolic blood pressure 160 mm[Hg] Barry Neeraj [facility] 01-20-2023 13:49-0500 Respiratory rate 16 /min Barry Neeraj [facility] 01-20-2023 13:43-0500 Diastolic blood pressure 94 mm[Hg] Barry Neeraj [facility] 01-20-2023 13:43-0500 Heart rate 76 /min Barry Neeraj [facility] 01-20-2023 13:43-0500 SaO2% (BldA) [Mass fraction] 98 % Barry Pickard [facility] 01-20-2023 13:43-0500 Systolic blood pressure 159 mm[Hg] Barry Neeraj [facility] 01-20-2023 13:35-0500 Heart rate 87 /min Barry Pickard [facility] 01-20-2023 13:35-0500 SaO2% (BldA) [Mass fraction] 98 % Barry Pickard [facility] 01-20-2023 13:35-0500 Diastolic blood pressure 77 mm[Hg] Barry Pickard [facility] 01-20-2023 13:35-0500 Mean blood pressure 98 mm[Hg] Barry Pickard [facility] 01-20-2023 13:35-0500 Systolic blood pressure 140 mm[Hg] Barry Pickard [facility] 01-20-2023 13:33-0500 Respiratory rate 14 /min Barry Pickard [facility] 06-24-2022 13:44-0400 Body temperature 98.49 [degF] John Liz MD Work Phone: [facility] 06-24-2022 13:44-0400 Body weight 93.44 kg John Liz MD Work Phone: [facility] 05-09-2022 14:51-0400 Diastolic blood pressure 79 mm[Hg] Gerald Zumbar [facility] 05-09-2022 14:51-0400 Heart rate 90 /min Gerald Zumbar [facility] 05-09-2022 14:51-0400 Mean blood pressure 94 mm[Hg] Gerald Zumbar [facility] 05-09-2022 14:51-0400 Respiratory rate 16 /min Gerald Zumbar [facility] 05-09-2022 14:51-0400 Systolic blood pressure 125 mm[Hg] Gerald Zumbar [facility] 03-20-2022 13:46-0500 Diastolic blood pressure 65 mm[Hg] Gerald Zumbar [facility] 03-20-2022 13:46-0500 Heart rate 89 /min Gerald Zumbar [facility] 03-20-2022 13:46-0500 Mean blood pressure 85 mm[Hg] Gerald Zumbar [facility] 03-20-2022 13:46-0500 Systolic blood pressure 124 mm[Hg] Gerald Zumbar [facility] 03-20-2022 13:37-0500 Diastolic blood pressure 107 mm[Hg] Gerald Zumbar [facility] 03-20-2022 13:37-0500 Heart rate 80 /min Gerald Zumbar [facility] 03-20-2022 13:37-0500 Respiratory rate 14 /min Gerald Zumbar [facility] 03-20-2022 13:37-0500 SaO2% (BldA) [Mass fraction] 98 % Gerald Zumbar [facility] 03-20-2022 13:37-0500 Systolic blood pressure 144 mm[Hg] Gerald Zumbar [facility] 03-20-2022 13:23-0500 Heart rate 82 /min Gerald Zumbar [facility] 03-20-2022 13:23-0500 SaO2% (BldA) [Mass fraction] 96 % Gerald Zumbar [facility] 03-20-2022 13:23-0500 Diastolic blood pressure 85 mm[Hg] Gerald Zumbar [facility] 03-20-2022 13:23-0500 Mean blood pressure 107 mm[Hg] Gerald Zumbar [facility] 03-20-2022 13:23-0500 Systolic blood pressure 149 mm[Hg] Gerald Zumbar [facility] 03-20-2022 13:23-0500 Body temperature 98.06 [degF] Gerald Zumbar [facility] 03-20-2022 13:22-0500 Respiratory rate 12 /min Gerald Zumbar [facility] 01-23-2022 09:24-0500 Diastolic blood pressure 81 mm[Hg] Gerald Zumbar [facility] 01-23-2022 09:24-0500 Heart rate 81 /min Gerald Zumbar [facility] 01-23-2022 09:24-0500 Mean blood pressure 100 mm[Hg] Gerald Zumbar [facility] 01-23-2022 09:24-0500 Respiratory rate 12 /min Gerald Zumbar [facility] 01-23-2022 09:24-0500 Systolic blood pressure 137 mm[Hg] Gerald Zumbar [facility] 11-20-2021 07:59-0400 Diastolic blood pressure 94 mm[Hg] Cezar Coe [facility] 11-20-2021 07:59-0400 Heart rate 76 /min Cezar Coe [facility] 11-20-2021 07:59-0400 Mean blood pressure 115 mm[Hg] Cezar Coe [facility] 11-20-2021 07:59-0400 Systolic blood pressure 158 mm[Hg] Cezar Coe [facility] 11-15-2021 14:24-0400 Diastolic blood pressure 89 mm[Hg] Gerald Zumbar [facility] 11-15-2021 14:24-0400 Heart rate 83 /min Gerald Zumbar [facility] 11-15-2021 14:24-0400 Mean blood pressure 108 mm[Hg] Gerald Zumbar [facility] 11-15-2021 14:24-0400 Respiratory rate 12 /min Gerald Zumbar [facility] 11-15-2021 14:24-0400 Systolic blood pressure 145 mm[Hg] Gerald Zumbar [facility] Encounters Encounter Date Encounter Type Care Provider Facility Start: 03-10-2023 End: 03-10-2023 ambulatory ADÁN LALA Facility:[facility] Start: 02-21-2023 End: 02-22-2023 ambulatory Nyasia Helton Facility:[facility] Start: 02-21-2023 End: 02-21-2023 Pain Management Nyasia Helton [facility] Start: 01-22-2023 End: 01-22-2023 ambulatory ADÁN LALA Facility:[facility] Start: 01-22-2023 End: 01-22-2023 Patient encounter procedure John Liz MD Work Phone: Rheumatology Comment on above: Seropositive rheumat oid arthritis (HCC) (Primary Dx); Medication monitoring encounter Start: 01-20-2023 End: 01-21-2023 ambulatory Barry Pickard Facility:[facility] Start: 01-20-2023 End: 01-20-2023 Pain Management Barry Pickard [facility] Start: 01-17-2023 End: 01-17-2023 ambulatory ADÁN LALA Facility:[facility] Start: 12-12-2022 Refill John Liz MD Work Phone: Rheumatology Comment on above: Refill Request Start: 11-08-2022 Telephone encounter Yanna De Santiago ala, MD Work Phone: Dermatology Comment on above: Patient Question Start: 11-06-2022 Refill Yanna Miller MD Work Phone: Dermatology Comment on above: Refill Request Start: 10-28-2022 Telephone encounter John Liz MD Work Phone: Rheumatology Comment on above: Patient Update (Penelopei sing) Start: 10-01-2022 Telephone encounter John Liz MD Work Phone: Rheumatology Comment on above: Medication Problem Start: 09-25-2022 End: 09-25-2022 ambulatory JOHN MODEL Facility:[facility] Start: 09-25-2022 End: 09-25-2022 Patient encounter procedure John Liz MD Work Phone: Rheumatology Comment on above: Seropositive rheumat oid arthritis (HCC) (Primary Dx); Medication monitoring encounter Start: 08-06-2022 End: 08-06-2022 ambulatory JOHN MODEL Facility:[facility] Start: 06-27-2022 End: 06-28-2022 ambulatory YANNA MILLER Facility:[facility] Start: 06-27-2022 End: 06-27-2022 Patient encounter procedure Yanna Miller MD Work Phone: Dermatology Comment on above: Psoriasis (Primary D x); Intertrigo Start: 06-26-2022 Telephone encounter John Liz MD Work Phone: Rheumatology Comment on above: Results Start: 06-26-2022 End: 06-27-2022 ambulatory MD Gerald Pham Facility:[facility] Start: 06-24-2022 End: 06-24-2022 ambulatory JOHN MODEL Facility:[facility] Start: 06-24-2022 End: 06-24-2022 Patient encounter procedure John Liz MD Work Phone: Rheumatology Comment on above: Bilateral hand swell ing (Primary Dx); Psoriasis Start: 06-19-2022 End: 06-20-[address] ADÁN LALA . Facility: Start: 05-30-2022 End: 05-31-2022 ambulatory Gerald Pham Facility:[facility] Start: 05-30-2022 End: 05-30-2022 Patient encounter procedure Gerald Pham [facility] Start: 05-14-2022 End: 05-15-[address] ADÁN LALA . Facility: Start: 05-09-2022 End: 05-10-2022 ambulatory Gerald Pham Facility:[facility] Start: 05-09-2022 End: 05-09-2022 Pain Management Gerald Pham [facility] Start: 04-25-2022 End: 04-26-[address] ADÁN LALA . Facility: Start: 03-29-2022 End: 03-30-[address] ADÁN LALA . Facility: Start: 03-20-2022 End: 03-21-2022 ambulatory Gerald Pham Facility:[facility] Start: 03-20-2022 End: 03-20-2022 Pain Management Gerald Pham [facility] Start: 01-23-2022 End: 01-23-2022 Pain Management Gerald Pham [facility] Start: 11-20-2021 End: 11-20-2021 Patient encounter procedure Cezar Coe [facility] Start: 11-15-2021 End: 11-15-2021 Pain Management Gerald Pham [facility] Procedures Date Procedure Procedure Detail Performing Clinician [...] DTaP,Tdap,Td Vaccine (2 - Td or Tdap) [facility] Start: 01-17-2026 Diabetes Screening Diabetes Screenin [facility] Start: 09-25-2025 DIABETES SCREEN DIABETES SCREEN [facility] Start: 09-25-2025 Diabetes Screening Diabetes Screenin [facility] Start: 08-06-2025 DIABETES SCREEN DIABETES SCREEN [facility] Start: 06-24-2025 DIABETES SCREEN DIABETES SCREEN [facility] Start: 04-23-2023 End: 01-23-2024 CBC W Auto Differential panel - Blood CBC + DIFF Lab Routine Seropositive rheumatoid arthritis (HCC) Medication monitoring encounter Expected: 04/23/2023, Expires: 01/23/2024 [facility] Work Phone: Comment on above: Expected: 04/23/2023 , Expires: 01/23/2024 Start: 04-23-2023 End: 01-23-2024 Comprehensive metabolic 2000 panel - Serum or Plasma COMP METABOLIC PANEL Lab Routine Seropositive rheumatoid arthritis (HCC) Medication monitoring encounter Expected: 04/23/2023, Expires: 01/23/2024 [facility] Work Phone: Comment on above: Expected: 04/23/2023 , Expires: 01/23/2024 Start: 04-23-2023 End: 01-23-2024 Erythrocyte sedimentation rate SED RATE WESTERGREN Lab Routine Seropositive rheumatoid arthritis (HCC) Medication monitoring encounter Expected: 04/23/2023, Expires: 01/23/2024 [facility] Work Phone: Comment on above: Expected: 04/23/2023 , Expires: 01/23/2024 Start: 12-12-2022 End: 12-13-2023 CBC W Auto Differential panel - Blood CBC + DIFF Lab Routine Seropositive rheumatoid arthritis (HCC) Medication monitoring encounter Expected: 12/12/2022, Expires: 12/13/2023 [facility] Work Phone: Comment on above: Expected: 12/12/2022 , Expires: 12/13/2023 Start: 12-12-2022 End: 12-13-2023 Comprehensive metabolic 2000 panel - Serum or Plasma COMP METABOLIC PANEL Lab Routine Seropositive rheumatoid arthritis (HCC) Medication monitoring encounter Expected: 12/12/2022, Expires: 12/13/2023 [facility] Work Phone: Comment on above: Expected: 12/12/2022 , Expires: 12/13/2023 Start: 12-12-2022 End: 12-13-2023 Erythrocyte sedimentation rate SED RATE WESTERGREN Lab Routine Seropositive rheumatoid arthritis (HCC) Medication monitoring encounter Expected: 12/12/2022, Expires: 12/13/2023 [facility] Work Phone: Comment on above: Expected: 12/12/2022 , Expires: 12/13/2023 Start: 10-18-2022 Influenza vaccination C [facility] Start: 09-25-2022 End: 09-26-2023 Comprehensive metabolic 2000 panel - Serum or Plasma [facility] Work Phone: Comment on above: Expected: 09/25/2022 , Expires: 09/26/2023 Start: 09-25-2022 End: 09-26-2023 Erythrocyte sedimentation rate [facility] Work Phone: Comment on above: Expected: 09/25/2022 , Expires: 09/26/2023 Start: 06-26-2022 End: 06-27-2023 CBC W Auto Differential panel - Blood CBC + DIFF Lab Routine Inflammatory arthritis Medication monitoring encounter Expected: 06/26/2022, Expires: 06/27/2023 [facility] Work Phone: Comment on above: Expected: 06/26/2022 , Expires: 06/27/2023 Start: 06-26-2022 End: 08-26-2022 Chronic hepatitis differentiation between hepatitis B and C virus panel - Serum or Plasma HEP REMOTE PANEL BL Lab Routine Inflammatory arthritis Medication monitoring encounter Expected: 06/26/2022, Expires: 08/26/2022 [facility] Work Phone: Comment on above: Expected: 06/26/2022 , Expires: 08/26/2022 Start: 06-26-2022 End: 06-27-2023 Comprehensive metabolic 2000 panel - Serum or Plasma COMP METABOLIC PANEL Lab Routine Inflammatory arthritis Medication monitoring encounter Expected: 06/26/2022, Expires: 06/27/2023 [facility] Work Phone: Comment on above: Expected: 06/26/2022 , Expires: 06/27/2023 Start: 06-26-2022 End: 06-27-2023 Erythrocyte sedimentation rate SED RATE WESTERGREN Lab Routine Inflammatory arthritis Medication monitoring encounter Expected: 06/26/2022, Expires: 06/27/2023 [facility] Work Phone: Comment on above: Expected: 06/26/2022 , Expires: 06/27/2023 Start: 06-24-2022 End: 06-25-2023 C reactive protein [Mass/volume] in Serum or Plasma [facility] Work Phone: Comment on above: Expected: 06/24/2022 , Expires: 06/25/2023 Start: 06-24-2022 End: 08-24-2022 Comprehensive metabolic 2000 panel - Serum or Plasma [facility] Work Phone: Comment on above: Expected: 06/24/2022 , Expires: 08/24/2022 Start: 06-24-2022 End: 08-24-2022 Creatine kinase [Enzymatic activity/volume] in Serum or Plasma [facility] Work Phone: Comment on above: Expected: 06/24/2022 , Expires: 08/24/2022 Start: 06-24-2022 End: 06-25-2023 Cyclic citrullinated peptide IgG Ab [Units/volume] in Serum or Plasma [facility] Work Phone: Comment on above: Expected: 06/24/2022 , Expires: 06/25/2023 Start: 06-24-2022 End: 06-25-2023 Nuclear Ab [Presence] in Serum by Immunoassay [facility] Work Phone: Comment on above: Expected: 06/24/2022 , Expires: 06/25/2023 Start: 06-24-2022 End: 08-24-2022 PROTEIN ELECTROPHORESIS SERUM W/INTERP [facility] Work Phone: Comment on above: Expected: 06/24/2022 , Expires: 08/24/2022 Start: 06-24-2022 End: 06-25-2023 Rheumatoid factor [Units/volume] in Serum or Plasma [facility] Work Phone: Comment on above: Expected: 06/24/2022 , Expires: 06/25/2023 Start: 06-24-2022 End: 08-24-2022 Urate [Mass/volume] in Serum or Plasma [facility] Work Phone: Comment on above: Expected: 06/24/2022 , Expires: 08/24/2022 Start: 02-17-2022 ADVANCE DIRECTIVE DISCUSSION ADVANCE DIRECTIVE DISCUSSION [facility] Start: 02-17-2022 DEPRESSION ASSESSMENT DEPRESSION ASS ESSMENT [facility] Start: 09-28-2020 BONE DENSITY BONE DENSITY [facility] Start: 09-28-2020 Bone Density Screening Bone Density Screening [facility] Start: 09-28-2020 PNEUMOCOCCAL: 65+ (1 - PCV) PNEUMOCOCCAL: 65+ (1 - PCV) [facility] Start: 02-28-2017 Pneumococcal Vaccine : 65+ (2 - PCV) Pneumococcal Vaccine: 65+ (2 - PCV) [facility] Start: 2015 RSV Vaccine (1 - 1-d ose 60+ series) RSV Vaccine (1 - 1-dose 60+ series) [facility] Start: 09-28-2005 SHINGRIX VACCINE (1 of 2) BA GRIX VACCINE (1 of 2) [facility] Start: 09-28-2000 COLOGUARD (FIT-DNA) COLOGUARD (FIT-D NA) [facility] Start: 09-28-2000 Colonoscopy COLONOSCOPY [facility] Start: 09-28-2000 COLORECTAL CANCER SCREENING COLORECTAL CANCER SCREENING [facility] Start: 09-28-[address] COLONOGRAPHY [facility] Start: 09-28-2000 DIABETES SCREEN DIABETES SCREEN [facility] Start: 09-28-2000 FECAL OCCULT BLOOD FECAL OCCULT BLOO D [facility] Start: 09-28-2000 Lipid 1996 panel - S west or Plasma Lipid Screening [facility] Start: 09-28-2000 LIPID SCREEN LIPID SCREEN [facility] Start: 09-28-2000 SIGMOIDOSCOPY SIGMOIDOSCOPY [facility] Start: 1995 Mammography [facility] Start: 09-28-1974 SHINGRIX VACCINE (1 of 2) BA GRIX VACCINE (1 of 2) [facility] Start: 09-28-1974 Urine microalbumin profile [facility] Start: 09-28-1973 HEPATITIS C SCREENING HEPATITIS C SC REENING [facility] Start: 09-28-1961 Pneumococcal Vaccine : 65+ (1 - PCV) Pneumococcal Vaccine: 65+ (1 - PCV) [facility] Start: 09-28-1961 PNEUMOCOCCAL: 65+ (1 - PCV) PNEUMOCOCCAL: 65+ (1 - PCV) [facility] Start: 09-28-1960 COVID-19 VACCINE (#1) COVID-19 VACCI NE (#1) [facility] Start: 03-31-1956 COVID-19 VACCINE (#1) COVID-19 VACCI NE (#1) [facility] CBC W Auto Different ial panel - Blood CBC + DIFF Lab Routine Bilateral hand swelling 06/24/2022 3:03 PM EDT [facility] Work Phone: End: 07-24-2023 Radiologic exam chest 2 views XR CHEST 2V FRONTAL/LAT Radiology Routine Bilateral hand swelling 1 Occurrences starting 06/24/2022 until 07/24/2023 [facility] Work Phone: Comment on above: 1 Occurrences starti ng 06/24/2022 until 07/24/2023 Radiologic exam ches t 2 views XR CHEST 2V FRONTAL/LAT Radiology Routine Bilateral hand swelling 06/24/2022 3:26 PM EDT [facility] Work Phone: [facility] Immunizations Immunization Date Immunization Notes Care Provider Foreign caputo 12-20-2018 influenza virus vaccine, unspecified formulation John Liz MD Work Phone: [facility] 12-18-2018 influenza virus vaccine, live, attenuated, for intranasal use Gerald Pham [facility] [place] Payers Date Payer Category Payer Worker's Compensation [id number] 2022 Worker's Compensation [id number] 2021 Medicaid MEDICAID [facility] MEDICAID [id number] 2021-Present [phone] [address] [place] [address] Medicaid [id number] 1959 Medicaid [id number] 1959 Medicare [id number] 1955 Unknown [id number] 2.16.840.1.580064.3.579.2.59 3 1955 Unknown [id number] 2.16.840.1.271687.3.579.2.59 3 1955 Unknown [id number] 2.16.840.1.829226.3.579.2.59 3 1955 Unknown [id number] 2.16.840.1.335952.3.579.2.59 3 1955 Unknown [id number] 2.16.840.1.310259.3.579.2.72 7 1955 Unknown [id number] 2.16.840.1.079425.3.579.2.72 7 1955 Unknown [id number] 2.16.840.1.062993.3.579.2.72 7 1955 Unknown [id number] 2.16.840.1.504833.3.579.2.72 7 1955 Unknown [id number] 2.16.840.1.397922.3.579.2.72 7 1955 Unknown [id number] 2.16.840.1.113915.3.579.2.72 7 Social History Date Type Detail Facility Start: 02-15-2021 Tobacco smoking status Heavy t obacco smoker (finding) [facility] Start: 06-23-2022 End: 06-24-2022 Sex Assigned At Female [facility] Work Phone: Start: 1955 Sex Assigned At Female [facility] Start: 06-23-2022 End: 06-24-2022 History of Social function [facility] Adult Depression Screening Assessment 2 [facility] Start: 06-23-2022 Gender identity Identifies as female gender (finding) [facility] Start: 06-23-2022 Sexual orientation Heterosexual (criselda rascon) [facility] Functional Status Date Assessment Result Facility 02-21-2023 Functional Status N/A [facility] 01-20-2023 Functional Status N/A [facility] 05-09-2022 Functional Status N/A [facility] 03-20-2022 Functional Status N/A [facility] 01-23-2022 Functional Status N/A [facility] 11-20-2021 Functional Status N/A [facility] 11-15-2021 Functional Status N/A [facility] Clinical Notes 03-20-2022 to 03-10-2023 Note Date & Type Note Facility 03-10-2023 Note HNO ID: [id number] Author: YANNA MILLER MD Service: ? Author [...] on the intergluteal cleft, buttocks, dorsal hands [place] macerated plaques on the abdominal pannus A/P: Sehlly Wilson is a 66 year old female [...] direct input. Yanna Miller MD Dermatology Staff [facility] 02-21-2023 Evaluation + Plan note Extrac joshua from: Title:Pain Managment Follow up Author:Nyasia Miller Date:02/21/23 Impression and Plan Patient is a 67-year-old female with a past medical history significant for a [facility] claim. The approved diagnosis codes are lumbosacral [...] injections. She is going to continue on [place] given to her by her PCP. She is going to start Lyrica 50 mg twice daily. Potential side effects were discussed. How to use the medication was discussed. OARRS was reviewed. COLLETTE score: 46%. Follow-up in 1 month. Future Appointments Appointment Date:03/28/2023 02:15:00 PM Scheduled Provider:Nyasia Helton PA-C Location:[facility] Appointment Type:Pain Management - Workmans Comp Follow U [facility]12-06-2023 NoteHNO ID: [id number] Author: John Liz MD Service: ? Author [...] showing osteoarthritis. Dr Lala her PCP from [facility] in [place] prescribed prednisone 40 mg/d x 5. Reduced [...] Future Standing Expiration Da (more content not included)...[facility] 01-22-2023 History of Present illness Narrative* John [...] showing osteoarthritis. Dr Lala her PCP from [facility] in [place] prescribed prednisone 40 mg/d x 5. Reduced [...] mo John Liz MD [facility]-2023 Note [id number]#[id number] 12[facility]22 Miscellaneous Notes* Telephone Encounter - John [...] Visit Type Date Time Department FLAVIO EST [facility] MEDICAL 01/22/2023 1:40 PM [facility] CBC: CBC Latest Ref Rng & [...] Instance) Lab Orders None documented in [facility] encounter[facility]09-22-2023 Miscellaneous Notes* Telephone Encounter - Hallie Stallings - 11/08/2022 11:07 AM EDT Patient called in to let Dr. Miller that the triamcinolone (KENALOG) 0.025 % ointment does not work. Patient wants to know if she can be prescribed something else. ketoconazole (NIZORAL) 2 % cream is working well for the patient. documented in this encounterSouth[facility] Center09-21-2023 Miscellaneous Notes* Telephone Encounter - Doreen William - 11/07/2022 8:54 AM EDT Patient last seen 06/2022 RX Ketoconazole Please approve prescription and any additional refills and e-script to designated pharmacy. Thank you, Doreen William documented in this encounterSouth[facility] Center09-12-2023 Miscellaneous Notes* Telephone Encounter - Lucinda Agarwal [...] better. MTX higher dose may takelonger to donato Liz MD * Telephone Encounter - Lucinda [...] give us a call back. Lucinda MONGE, RN * Telephone Encounter - Noa Underwood [...] from 21 to 16. documented in this encounterSouth[facility]08-16-2023 Miscellaneous Notes* Telephone Encounter - Karyn Koenig [...] feet and anklesare swelling Please call pt [phone] documented in this encounterSouthwest [facility] Center08-09-2023 NoteHNO ID: [id number] Author: John Liz MD Service: ? Author [...] showing osteoarthritis. Dr Lala her PCP from [facility] in [place] prescribed prednisone 40 mg/d x 5. Reduced [...] RATE WESTERGREN Rv 3 mo John Liz [facility]08-09-2023 History of Present illness Narrative* John Liz [...] showing osteoarthritis. Dr Lala her PCP from [facility] in [place] prescribed prednisone 40 mg/d x 5. Reduced [...] mo John Liz MD documented in this encounterSouth[facility]05-11-2023 NoteHNO ID: [id number] Author: Yanna Miller MD Service: ? Author [...] Lymph 1.00 - 4.00 k/uL 4.49 (H) [place]% % 7.0 Abs [place] <0.87 k/uL 1.50 (H) Eosin% % 0.0 [...] systemic rheumatologic management sugges (more content not included)...[facility]05-11-2023 History of Present illness Narrative* Yanna Miller MD - 06/27/2022 11:07 AM EDT New patient Consultation requested by Dr. Liz for an opinion regarding psoriasis. My final recommendations will be communicated back to the requesting physician by way of shared Medical record or letter to requesting physician via US mail. CC: roxana HPI: Shelly Wilson 66 year old female [...] Lymph 1.00 - 4.00 k/uL 4.49 (H) [place]% % 7.0 Abs [place] <0.87 k/uL 1.50 (H) Eosin% % 0.0 [...] use ofOTC miconazole powder. Will inform Dr. Liz of [...] arises. Yanna Miller MD documented in this encounterSouthwest [facility] Center05-10-2023 Miscellaneous Notes* Telephone Encounter - Karyn Koenig [...] mail. She said please send Rx to [facility] pharmacy in [place], [place] on [address]. She also notes that her hands are stiff and swollen again. She stopped prednisone Friday (she is out of pills) and the stiffness and swelling came back this morning. Also - she made an appointment to see Derm at [facility]. Her appointment is tomorrow 06/27. 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 Joint swelling/steroid responsive Skin rash, no formal [...] swollen? John Liz MD documented in this encounterSouthwest [facility] Center05-08-2023 NoteHNO ID: [id number] Author: John Liz MD Service: ? Author [...] showing osteoarthritis. Dr Lala her PCP from [facility] in [place] prescribed prednisone 40 mg/d x 5. Reduced [...] which included preparing to see the patient, [id number] patient care, completing clinical documentation, obtaining and/or reviewing separately obtained (more content not included)...[facility]05-08-2023 History of Present illness Narrative* John Liz [...] showing osteoarthritis. Dr Lala her PCP from [facility] in [place] prescribed prednisone 40 mg/d x 5. Reduced [...] which included preparing to see the patient, [id number] patient care, completing clinical documentation, obtaining and/or reviewing separately obtained history, performing a medically appropriate examination, counseling and educating the pat ient/family/caregiver, and ordering medications, tests, or procedures. documented in this encounterSouthwest [facility] Center03-25-2023 NoteHOSPITAL REGULATIONS: All Positive and Important Negative [...] stenosis at the L4-5 foramen. I reviewed [employer] Automated Prescription Reporting System report on her [...] total. Gerald Pham M.D. lr Dictated: 05/09/2022 [id number] Transcribed: 05/10/2022 cc:Adán Lala M.D.[facility] HospitalComment on above:Result Comment: Electronically Signed By: Gerald Pham MD\.br\Date and Time Signed: 05/11/22 18:51 [id number] Note [id number]:127[facility] Evaluation + Plan note Future Appointments Appointment Date:11/20/2021 08:00:00 AM Scheduled Provider:Cezar Coe MD Location:[facility] Appointment Type:[facility] - Worker's Comp [facility] Future Appointments Appointment Date:05/09/2022 02:30:00 PM Scheduled Provider:Gerald Pham MD Location:[facility]mt [place] Appointment Type:Pain Management - Follow Up ([facility] Future Appointments Appointment Date:06/26/2022 11:15:00 AM Scheduled Provider:Gerald Pham MD Location:[facility] [place] Appointment Type:Pain Management - Workmans Comp [facility] Future Appointments Appointment Date:02/21/2023 03:15:00 PM Scheduled Provider:Nyasia Helton PA-C Location:[facility] [place] Appointment Type:Pain Management - Follow Up ([facility]* Diagnosis Bilateral hand swelling- Primary Psoriasis Other psoriasis documented in this encounter [facility]* Diagnosis 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 Medication monitoring encounter Encounter for therapeutic drug monitoring documented in this encounter [facility]* Diagnosis Psoriasis- Primary Other psoriasis Intertrigo Other specified erythematous condition documented in this encounter [facility]* Diagnosis Seropositive rheumatoid arthritis (HCC)- Primary Rheumatoid arthritis Medication monitoring encounter Encounter for therapeutic drug monitoring documented in this encounter [facility]* Diagnosis Seropositive rheumatoid arthritis (HCC)- Primary Rheumatoid arthritis Medication monitoring encounter Encounter for therapeutic drug monitoring [facility] Narrative No data available for this section [facility] Dis[facility] instructions No data available for this section [facility] note No data available for this section [facility] Reason for Referral Specialty Diagnoses / Procedures Referred By Contac t Referred To Contact Dermatology Diagnoses Psoriasis Procedures CONSULT TO DERMATOLOGY OFFICE/OUTPATIENT [facility] 60-[place] [address] [place] [address] Referral ID Status Reason Start Date Expiration Date Visits Requested Visits Authorized [id number] Authorized PCP Requested Referral 06/24/2022 06/24/2023 1 1 Specialty Diagnoses / Procedures Referred By Contac t Referred To Contact XR IMAGING Diagnoses Bilateral hand swelling Procedures XR FOOT GENERAL 3V AP/LAT/OBL BILATERAL RADEX FOOT COMPLETE MINIMUM 3 VIEWS John Liz MD [address] [place] [address] Xr Imaging Referral ID Status Reason Start Date Expiration Date V isits Requested Visits Authorized [id number] Closed Auto-Generate d Referral 06/24/2022 07/24/2023 1 1 Specialty Diagnoses / Procedures Referred By Contac t Referred To Contact XR IMAGING Diagnoses Bilateral hand swelling Procedures XR HAND/WRIST SURVEY ARTHRITIS 1V PA BILATERAL JOINT SURVEY SINGLE VIEW 2 OR MORE JOINTS John Liz MD [address] [place] [address] Xr Imaging Referral ID Status Reason Start Date Expiration Date V isits Requested Visits Authorized [id number] Closed Auto-Generate d Referral 06/24/2022 07/24/2023 1 1 Summary Purpose Family History No Family History Records Found No data available for this section No data available for this section No Family History Records FoundNo Family History Records Found Advance Directives No Advanced Directives Records FoundNo Advanced Directives Records FoundNo Advanced Directives Records Found Additional Source Comments Care Team (unrecognized sect ion and content) Hearing Health Technician Relationship Specialty Start Date End Date Eula Tyler [address] [place] [address] PCP - General Family Medicine 06/21/22 Eula Tyler [address] [place] [address] Referring Family Medicine 06/21/22 Hearing Health Technician Relationship Specialty Start Date End Date Eula Tyler [address] [place] [address] PCP - General Family Medicine 06/21/22 Eula Tyler [address] [place] [address] Referring Family Medicine 06/21/22 Hearing Health Technician Relationship Specialty Start Date End Date Eula Tyler [address] [place] [address] PCP - General Family Medicine 06/21/22 Eula Tyler [address] [place] [address] Referring Family Medicine 06/21/22 Hearing Health Technician Relationship Specialty Start Date End Date Eula Tyler [address] [place] [address] PCP - General Family Medicine 06/21/22 Eula Tyler [address] [place] [address] Referring Family Medicine 06/21/22 Hearing Health Technician Relationship Specialty Start Date End Date Eula Tyler [address] [place] [address] PCP - General Family Medicine 06/21/22 Eula Tyler [address] [place] [address] Referring Family Medicine 06/21/22 Hearing Health Technician Relationship Specialty Start Date End Date Eula Tyler PA [address] [place] [address] PCP - General Family Medicine 06/21/22 Eula Tyler PA [address] [place] [address] Referring Family Medicine 06/21/22 Hearing Health Technician Relationship Specialty Start Date End Date Eula Tyler PA [address] [place] [address] PCP - General Family Medicine 06/21/22 Eula Tyler PA [address] [place] [address] Referring Family Medicine 06/21/22 Hearing Health Technician Relationship Specialty Start Date End Date Eula Tyler PA [address] [place] [address] PCP - General Family Medicine 06/21/22 Eula Tyler PA [address] [place] [address] Referring Family Medicine 06/21/22 Hearing Health Technician Relationship Specialty Start Date End Date Eula Tyler PA [address] [place] [address] PCP - General Family Medicine 06/21/22 Eula Tyler PA [address] [facility] [address] [place] [address] Referring Family Medicine 06/21/22 Hearing Health Technician Relationship Specialty Start Date End Date Adán Lala MD [address] [place] [address] PCP - General Family Medicine 01/17/23 Eula Tyler PA [address] [facility] [address] [place] [address] Referring Family Medicine 06/21/22 Source Comments (unrecognize d section and content) In the event this informatio n is protected by the Federal Confidentiality of Alcohol and Drug Abuse Patient Records regulations: The Federal rules restrict any use of the information to criminally investigate or prosecute any alcohol or drug abuse patient.[facility] CenterIn the event this information is protected by the Federal Confidentiality of Alcohol and Drug Abuse Patient Records regulations: The Federal rules restrict any use of the information to criminally investigate or prosecute any alcohol or drug abuse patient.[facility] CenterIn the event this information is protected by the Federal Confidentiality of Alcohol and Drug Abuse Patient Records regulations: The Federal rules restrict any use of the information to criminally investigate or prosecute any alcohol or drug abuse patient.[facility] CenterIn the event this information is protected by the Federal Confidentiality of Alcohol and Drug Abuse Patient Records regulations: The Federal rules restrict any use of the information to criminally investigate or prosecute any alcohol or drug abuse patient.[facility] CenterIn the event this information is protected by the Federal Confidentiality of Alcohol and Drug Abuse Patient Records regulations: The Federal rules restrict any use of the information to criminally investigate or prosecute any alcohol or drug abuse patient.[facility] CenterIn the event this information is protected by the Federal Confidentiality of Alcohol and Drug Abuse Patient Records regulations: The Federal rules restrict any use of the information to criminally investigate or prosecute any alcohol or drug abuse patient.[facility] CenterIn the event this information is protected by the Federal Confidentiality of Alcohol and Drug Abuse Patient Records regulations: The Federal rules restrict any use of the information to criminally investigate or prosecute any alcohol or drug abuse patient.[facility] CenterIn the event this information is protected by the Federal Confidentiality of Alcohol and Drug Abuse Patient Records regulations: The Federal rules restrict any use of the information to criminally investigate or prosecute any alcohol or drug abuse patient.[facility] CenterIn the event this information is protected by the Federal Confidentiality of Alcohol and Drug Abuse Patient Records regulations: The Federal rules restrict any use of the information to criminally investigate or prosecute any alcohol or drug abuse patient.[facility] CenterIn the event this information is protected by the Federal Confidentiality of Alcohol and Drug Abuse Patient Records regulations: The Federal rules restrict any use of the information to criminally investigate or prosecute any alcohol or drug abuse patient.[facility] Reason for Visit (unrecogniz ed section and content) Reason Comments New Patient Reason Comments Results Reason Comments Full Body Skin Check Psoriasis/ blisters sparatic on the body Reason Comments Established Patient Reason Comments Medication Problem Reason Comments Patient Update Bruising Reason Comments Refill Request Reason Comments Patient Question INFORMATION SOURCE (unrecogn ized section and content) DATE CREATED AUTHOR 06/27/2022 Yue Chung [facility] DATE CREATED AUTHOR AUTHOR'S ORGANIZ ATION 02/22/2023 [facility] DATE CREATED AUTHOR AUTHOR'S ORGANIZ ATION 03/14/2023 [facility] FOR RECORDS PERTAINING TO PATIENTS WHO [...] BE BASED ON THE PRIMARY CLINICAL RECORDS. [facility] [employer] [facility]. provides no warranty or guarantee of the accuracy or completeness of information in this document.
== END 2023-03-17 13:38 | disposition home or self-care (01) ==
LOC: VC 13:39
PROVIDERS: PCP Radiology Diagnostic Radiology; Visit Provider Radiology Diagnostic Radiology
DX: I80.01 Phlebitis and thrombophlebitis of superficial vessels of right lower extremity (principal)
CPT/HCPCS: 93971; G0463

== ENCOUNTER 2023-03-21 12:33 | Outpatient (OUT) | payer MEDICARE, MEDICAID, SELFPAY ==
--- NOTE | 2023-03-21 12:36 | VEIN_ITS ---
[address] [address] Patient Name: DAVION HUMPHREYS MRN: [id number] date: 1955 Sex: F Assigned Patient Location: Current Patient Location: Accession/Order Number: [id number] Exam Date: 03/21/2023 12:35 Report Date: 03/21/2023 13:44 At the request of: WADE YU Procedure: VC Endovenous Ablation 1VeinLT EXAMINATION: VC Endovenous Ablation 1VeinLT HISTORY: Pain due to varicose veins of bilateral legs I83.813 The risks and benefits of the procedure had been previously discussed, and were rediscussed at length. Informed written consent was obtained. Itz Cheng RN and Shelley Diane RDMS assisted. Time out procedure was performed. The left lower extremity was prepared and draped in the usual sterile fashion to allow knee flexion in the sterile field. Duplex ultrasound probe was draped in a sterile cover, sterile transmission gel was used. Venous mapping was performed with the areas of dilation and large tributaries marked. The total length was 57 cm from the entry 3 cm above the ankle to 3 cm below the Saphenofemoral junction. The diameter of the left great saphenous vein ranged from 5.5 mm. A 30 gauge needle and 1% buffered lidocaine was used to anesthetize the entry site. A 4 mm incision was made with a scalpel and the saphenous vein was entered percutaneously under direct ultrasound guidance with a micropuncture set, a single stick was successful in gaining access. A micro-guide wire was inserted and the needle removed. A micro-set including a dilator was inserted over the microwire and the needle and dilator were removed. A guide wire was inserted through the micro-set and guided through the saphenous vein to the saphenofemoral junction. The dilator was removed and an introducer sheath was inserted over the wire until the end of the sheath entered the saphenofemoral junction. The dilator and wire were removed and the 600 micron fiber was introduced and placed and positioned so that it extended beyond the sheath and was 3 cm distal to the saphenofemoral or saphenopopliteal junction. Final position of the fiber was determined by ultrasound guidance and duplex imaging. Tumescent anesthetic was delivered by ultrasound guidance. 375 cc of fluid was delivered along the entire course of the saphenous vein. The solution consisted of 1000 cc of normal saline with 40 mL of 1% lidocaine and 20 mL of sodium bicarbonate. A final positioning check was made. The energy source was turned on by means of the foot pedal and the fiber and sheath were withdrawn. The total number of Joules delivered was 2915. The laser was active for 3 and 64 seconds under continuous pulse, average laser use of 8 J. Laser start time 1:24 PM, 03/21/2023. Laser stop time 1:32 PM, 03/21/2023. A duplex ultrasound revealed compressibility and flow at the saphenofemoral junction immediately after the procedure. Hemostasis at the access site was achieved. The skin incision of the saphenous vein was closed with a 4 x 4. A compression stocking was applied. Postop instructions were given. A follow up appointment was recommended and scheduled. The patient tolerated the procedure well. Electronically authenticated by: SOFIE PATTERSON Date: 03/21/2023 13:44
--- OUTSIDE RECORDS SUMMARY | 2023-03-21 12:44 | XMS_ITS | CCD ---
Author Name Unknown Address [address] [place] [address] Organization [facility] Care Team Providers Care Ecclesiastical Worker Name Role Phone Adán Lala Primary Care Physician [phone] Eula Tyler Unavailable Eula Tyler Primary Care [...] Unavailable HOY ., DR MCCAIN Attending Unavailable BASTROP, DR WADE Lozada Consulting Unavailable HOY ., DR MCCAIN Consulting Unavailable HOY ., DR MCCAIN Primary Care Unavailable HOY ., DR MCCAIN Admitting Unavailable HOY ., DR MCCAIN Attending Unavailable YESENIA, DR SOFIE Shepherd Consulting Unavailable Eula Tyler Unavailable Eula Tyler Primary Care Provider Eula Vital Unavailable Eula Vital Primary Care Provider Adán Lala MD Primary Care Provider [phone] Kiya Phamchary Admitting Unavailable Zumbar Gerald Attending Unavailable Ankit Gerald Referring Unavailable Gerald Pham Admitting Unavailable Adán Lala Referring Unavailable Zumbar Gerald Attending Unavailable Zumbar, MD Gerald Admitting Unavailable Dai Adán Referring Unavailable Gerald Pham Attending Unavailable Nyasia Helton Attending Unavailable JOSE ANTONIO Hleton Admitting Unavailabl e Dai Adán Referring Unavailable [...] [CODEINE] Drug Allergy 06-27-[address] [facility] Repository (8 sources) Codeine Drug Allergy 06-27-20[address] GI [address] [facility] Medications Current Medications Medication Drug Class(es) [...] Start: 12-19-2022 take 2 tablets by mo [facility] once daily predniSONE (DELTASONE) 5 mg [...] ESTHER EVERY DAY Take 2 tablets by [facility] once daily. pregabalin 50 mg oral capsule (1 source) Start: 02-21-2023 End: 03-23-2023 take 1 capsule by mouth twice daily pregabalin 50 mg Cap 50 mg = 1 cap(s), Oral, BID, X 30 day(s), # 60 cap(s), Refills(s) 0, Pharmacy: [facility]/pharmacy #[id number], 158, cm, 02/21/23 15:08:00 EST, [...] TWICE DAILY FOR SKIN FOLDS triamcinolone acetonide 0.45542 mg/mg topical ointment (8 sources) Corticosteroid Start: [...] Test Name Value Interpretation Reference Range Facility Wilian 03-17-2023 DAWSON Telephone (DARNELL) SHELLY WILSON ([id number]) 1955 F Date Time Provider Department 03/17/23 JOHN LIZ During your visit today, we recorded the following information about you: Elena Hoyt 03/17/2023 11:42 AM Signed Pt is calling and states that her knuckles and wrist have been swollen for the last two weeks. She has no operations/dispatch strength and she doesn't see Dr. Liz until 04/23/2023 at 140 pm. She would like to know if there is anything to do for the pain. Lucinda Agarwal RN 03/17/2023 1:48 PM Signed I tried to call the patient, left a VM for her to call us back. Lucinda Agarwal RN 03/18/2023 11:37 AM Signed I spoke with Shelly. She confirmed her knuckles and wrists on both hands are swollen, this started 2 weeks ago not too long after she came off prednisone. Also having sharp hand pain, 4/10 with movement, worse at night and first thing in the morning. Does not have total use of her hands, able to make a fist but unable to operations/dispatch things. Denies any joint redness or excessive warmth to skin. Takes OTC Tylenol regular strength 2 tabs once a day for pain which helps a little. Pharmacy [facility] [place] [facility] in the vent a script is sent in. John Liz MD 03/18/2023 12:36 PM Signed She can restart prednisone 10 mg/d We will discuss biologics at her next visit She can think about Humira start John Liz MD Orders Placed This Encounter predniSONE (DELTASONE) 10 mg tablet Sig: Take 1 tablet by mouth once daily. Dispense: 30 tablet Refill: 1 Karyn Koenig RN 03/19/2023 12:02 PM Signed Left message on both home and cell voicemail informing patient of the message below from Dr. Liz. Left office number for patient to call back with any questions, or if she would like a sooner appointment, we can add her to our cancellation waitlist. Allergies As of Date: 03/17/2023 Noted Allergy Reaction CODEINE 06/27/2022 8 - GI Upset Date Reviewed: 03/10/2023 Reviewed by: Mariah Rebolledo RN - Fully Assessed Reason for Visit: Patient Update [1234] Order(s):predniSONE (DELTASONE) 10 mg tabletTake 1 tablet by mouth once daily.Disp: 30 tabletRfl: 1 Prescriptions as of 03/19/2023 - predniSONE (DELTASONE) 10 mg tablet Take 1 tablet by mouth once daily. - tapinarof (VTAMA) 1 % cream Apply [...] pain. prn Problem List As Of Date: 03/17/2023 (None) Prescriptions ordered this encounter Disp Refills Start End PREDNISONE 10 MG TABLET 30 t* 1 03/18/2023 Route: ORAL Sig: Take 1 tablet by mouth once daily. Encounter Status:Closed by ELENA HOYT on 03/19/23 [facility] Tammi 03-10-2023 CNOV Office Visit (DERMMN ) SHELLY WILSON ([id number]) 1955 F Date Time Provider Department 03/10/23 [...] on the intergluteal cleft, buttocks, dorsal hands [place] macerated plaques on the abdominal pannus A/P: [...] Upset Date Reviewed: 03/10/2023 Reviewed by: Mariah Rebolledo, ROSE - Fully Assessed Reason for Visit: Psoriasis [...] mouth once (more content not included)... Normal [facility] CNPSammi 03-10-2023 CNPN Telephone (DERMMN) SHELLY WILSON ([id number]) 1955 F Date Time Provider Department 03/10/23 YANNA MILLER DERMMN During your visit today, we recorded the following information about you: Richi Blanc 03/10/2023 2:14 PM Signed I have sent PA form to [facility] for patients VTAMA. Sent electronically through [employer] used L40.9 Sims: [id number] Richi Blanc 03/10/2023 4:27 PM Signed Received [...] Faxed appeal with letter of necessity to [facility] @ [phone] Richi Blanc 03/13/2023 8:46 AM Signed Received APPROVAL for patient's VTAMA Document uploaded to chart. Dates reflect: 03/10/2023 until further notice Informing patient of approval through [employer]. Allergies As of Date: 03/10/2023 Noted Allergy [...] Status:Closed by HALLIE STALLINGS on 03/11/23 Normal [facility] Consent for Treatmenton Consent for Treatment [id number]#1. 00TIFF Normal [facility] Consultation Noteon 02-21-19 Consultation Note Patient: [...] that she rates a 4/10. She has [place] given to her by her PCP. She [...] day(s), # 60 cap(s), Refills(s) 0, Pharmacy: [facility]/pharmacy #[id number], 158, cm, 02/21/23 15:08:00 EST, [...] list: All Problems Hyperlipidemia / SNOMED CT 39325794 / Confirmed Hypertension / SNOMED CT 6395608859 / Confirmed Obesity / SNOMED CT 0259205165 / Confirmed Smoker / SNOMED CT 687925342 / Confirmed History of osteoarthritis / SNOMED CT 721417615 / Confirmed Resolved: Ganglion cyst of right wrist / SNOMED CT 347202098024074 Objective Measurements from flowsheet : Measurements 02/21/2023 [...] Last Charted Weight 99.3 kg (FEB 21 15:) BMI 39.78 (FEB 21 15:) General: Alert and oriented, No acute distress. Overweight Eye: Normal conjunctiva. HENT: Normocephalic, Normal hearing. Cardiovascular: No edema. Musculoskeletal Normal range of motion. Normal strength. 5/5 lower extremity strength Integumentary: Warm, Dry, [place]. Injection site well-healed Neurologic: Alert, Oriented. Psychiatric: Cooperative, Appropriate mood & affect. Impression and Plan Patient is a 67-year-old female with a past medical history significant for a [facility] claim. The approved diagnosis codes [...] injections. She is going to continue on [place] given to her by her PCP. She is going to start Lyrica 50 mg twice daily. Potential side effects were discussed. How to use the medication was discussed. OARRS was reviewed. COLLETTE score: 46%. Follow-up in 1 month. Normal [facility] Comment on above: Result Comment: Elec tronically Signed By: Sunitha BRADY, Nyasia\.br\Date and Time Signed: 02/21/23 15:28 EST Legal Correspondence Officeo n 02-21-2023 Legal Correspondence Office [id number]#1.0 0TIFF Normal [facility] Office/Clinic Note-Physician on 02-21-2023 Office/Clinic Note-Physician [id number]#1.0 0TIFF Normal [facility] Patient Correspondenceon Patient Correspondence [id number]#1.0 0TIFF Normal [facility] Patient Correspondence [id number]#1.0 0TIFF Normal [facility] Patient Correspondence [id number]#1.0 0TIFF Normal [facility] Patient Correspondence [id number]#1.0 0TIFF [facility] Patient History Officeon Patient History Office [id number]#1.0 0TIFF [facility] Operative Reporton 3 Operative Report Patient: [...] Correction: Diagnosis: spinal stenosis, lumbosacral region Normal [facility] Comment on above: Result Comment: Elec tronically Signed By: Neeraj HUDSON, Barry Means.br\Date and Time Signed: 01/28/23 12:16 EST LEONARDAon 01-22-2023 CNOV Office Visit (DARNELL ) SHELLY WILSON ([id number]) 1955 F Date Time Provider Department 01/22/23 [...] Dr Lala her PCP from [facility] in [place] prescribed prednisone 40 mg/d x 5. Reduced [...] See ophthalmology (more content not included)... Normal [facility] Consent for Procedure/Surger yon 01-20-2023 Consent for Procedure/Surgery [id number]#1. 00TIFF [facility] Consent for Treatmenton Consent for Treatment [id number]#1.0 0TIFF [facility] Discharge Instructionson Discharge Instructions [id number]#1. 00TIFF [facility] IntraOperative Documentson 1 03-23-2022 IntraOperative Documents [id number]#1. 00TIFF [facility] Main OR Intraoperative Recor don 01-20-2023 Main OR Intraoperative Record IntraOp Document Type FTPM Summary Primary Physician: Barry Pickard MD Finalized Date/Time: 01/20/23 13:46:44 Pt. Name: SHELLY HUMPHREYS/Sex: 1955 Female Med Rec #: [id number] Physician: Barry Pickard MD Financial #: [id number] Pt. Type: P Room/Bed: / Admit/Disch: 01/20/23 13:21:57 - Institution: Case Times FTPM Entry 1 Patient Times In Room 12/04/23 13:40:00 Out Room 01/20/23 13:46:00 Procedure Times Start 01/20/23 13:43:00 Stop 01/20/23 13:45:00 Anesthesia Times Last Modified By: Padmini Morejon RN 01/20/23 13:46:05 Case Attendance FTPM Entry 1 Entry 2 Entry 3 Case Attendee Neeraj HUDSON, Barry Morejon RN, Padmini Hernandez RN, Addis Perez Role Performed Surgeon - Primary Graduate Rn - Primary Scrub - Primary Time In 01/20/23 13:40:00 01/20/23 13:40:00 01/20/23 13:40:00 Time Out 01/20/23 13:46:00 01/20/23 13:46:00 01/20/23 13:46:00 Procedure TRANSFORAMINAL EPIDURAL TRANSFORAMINAL EPIDURAL TRANSFORAMINAL EPIDURAL STEROID STEROID STEROID INJECTIO(Bilateral) INJECTIO(Bilateral) INJECTIO(Bilateral) Comments Last Modified By: Padmini Morejon RN, RN, Padmini Jimenez RN 01/20/23 13:46:06 01/20/23 13:46:06 01/20/23 13:46:06 Entry 4 Case Attendee Shannon Christian (R) Role Performed Toll Line Inspector Time In 01/20/23 13:40:00 Time Out 01/20/23 [...] X-ray Applicable) PreOp Antibiotic No Time Out Jean-PierrePadmini arredondo RN, Given Participants Mary ROSE, Addis Perez, Neeraj HUDSON, Barry Medina, Jessy RT(R), Shannon Time Out Complete 01/20/23 13:40:00 Outcomes [...] and tissue Entry 1 Skin Integrity Intact, [place], Warm, and Skin Abnormality No Dry Outcomes [...] Safety Strap, (more content not included)... Normal [facility] Main OR Preoperative Recordo n 01-20-2023 Main OR Preoperative Record Holding Area Document Type FTPM Summary Primary Physician: Barry Pickard MD Finalized Date/Time: 01/20/23 13:38:50 Pt. Name: SHELLY HUMPHREYS./Sex: 1955 Female Med Rec #: [id number] Physician: Barry Pickard MD Financial #: [id number] Pt. Type: P Room/Bed: / Admit/Disch: 01/20/23 [...] By: Suzette Ferrer RN 01/20/23 13:38 Normal [facility] CBC W Auto Differential pane l (Bld)on 01-17-2023 Basophils (Bld) [#/Vol] 0.12 10*3/uL High <0.11 [facility] Comment on above: Order Comment: Speci men Type: BLOOD SPECIMENOrdering Facility: [facility] Address: [address] [place] [address] Performed By: #### 5 7021-8 ####[facility] LABCLIA [id number] [place] [address] Basophils/100 WBC (Bld) 0.8 % Normal [facility] Comment on above: Order Comment: Speci men Type: BLOOD SPECIMENOrdering Facility: [facility] Address: [address] [place] [address] Performed By: #### 5 7021-8 ####[facility] LABCLIA [id number] [place] [address] Differential cell count method Nom (Bld) Auto Normal [facility] Comment on above: Order Comment: Speci men Type: BLOOD SPECIMENOrdering Facility: [facility] Address: [address] [place] [address] Performed By: #### 5 7021-8 ####[facility]CLIA [id number] [place] [address] Eosinophils (Bld) [#/Vol] 0.17 10*3/uL Normal <0.46 [facility] Comment on above: Order Comment: Speci men Type: BLOOD SPECIMENOrdering Facility: [facility] Address: [address] [place] [address] Performed By: #### 5 7021-8 ####[facility]CLIA [id number] [place] [address] Eosinophils/100 WBC (Bld) 1.1 % Normal [facility] Comment on above: Order Comment: Speci men Type: BLOOD SPECIMENOrdering Facility: [facility] Address: [address] [place] [address] Performed By: #### 5 7021-8 ####[facility]CLIA [id number] [place] [address] Erythrocyte distribution width (RBC) [Ratio] 13.2 % Normal 11.5-15.0 [facility] Comment on above: Order Comment: Speci men Type: BLOOD SPECIMENOrdering Facility: [facility] Address: [address] [place] [address] Performed By: #### 5 7021-8 ####[facility]CLIA [id number] [place] [address] Hematocrit (Bld) [Volume fraction] 44.1 % Normal 36.0-46.0 [facility] Comment on above: Order Comment: Speci men Type: BLOOD SPECIMENOrdering Facility: [facility] Address: [address] [place] [address] Performed By: #### 5 7021-8 ####[facility]CLIA [id number] [place] [address] Hemoglobin (Bld) [Mass/Vol] 14.4 g/dL Normal 11.5-15.5 [facility] Comment on above: Order Comment: Speci men Type: BLOOD SPECIMENOrdering Facility: [facility] Address: [address] [place] [address] Performed By: #### 5 7021-8 ####[facility]CLIA [id number] [place] [address] Immature granulocytes (Bld) [#/Vol] 0.12 10*3/uL High <0.10 [facility] Comment on above: Order Comment: Speci men Type: BLOOD SPECIMENOrdering Facility: [facility] Address: [address] [place], [place] [address] Performed By: #### 5 7021-8 ####[facility]CLIA [id number] [place] [address] Immature granulocytes/100 WBC (Bld) 0.8 % Normal [facility] Comment on above: Order Comment: Speci men Type: BLOOD SPECIMENOrdering Facility: [facility] Address: [address] [place] [address] Performed By: #### 5 7021-8 ####[facility] LABCLIA [id number] [place] [address] Lymphocytes (Bld) [#/Vol] 2.38 10*3/uL Normal 1.00-4.00 [facility] Comment on above: Order Comment: Speci men Type: BLOOD SPECIMENOrdering Facility: [facility] Address: [address] [place] [address] Performed By: #### 5 7021-8 ####[facility]CLIA [id number] [place] [address] Lymphocytes/100 WBC (Bld) 15.3 % Normal [facility] Comment on above: Order Comment: Speci men Type: BLOOD SPECIMENOrdering Facility: [facility] Address: [address] [place] [address] Performed By: #### 5 7021-8 ####[facility] LABCLIA [id number] [place] [address] MCH (RBC) [Entitic mass] 31.4 pg Normal 26.0-34.0 [facility] Comment on above: Order Comment: Speci men Type: BLOOD SPECIMENOrdering Facility: [facility] Address: [address] [place] [address] Performed By: #### 5 7021-8 ####[facility] LABCLIA [id number] [place] [address] MCHC (RBC) [Mass/Vol] 32.7 g/dL Normal 30.5-36.0 [facility] Comment on above: Order Comment: Speci men Type: BLOOD SPECIMENOrdering Facility: [facility] Address: [address] [place] [address] Performed By: #### 5 7021-8 ####[facility] LABCLIA [id number] [place] [address] MCV (RBC) [Entitic vol] 96.3 fL Normal 80.0-100.0 [facility] Comment on above: Order Comment: Speci men Type: BLOOD SPECIMENOrdering Facility: [facility] Address: [address] [place] [address] Performed By: #### 5 7021-8 ####[facility] LABCLIA [id number] [place] [address] Monocytes (Bld) [#/Vol] 1.19 10*3/uL High <0.87 [facility] Comment on above: Order Comment: Speci men Type: BLOOD SPECIMENOrdering Facility: [facility] Address: [address] [place] [address] Performed By: #### 5 7021-8 ####[facility] LABCLIA [id number] [place] [address] Monocytes/100 WBC (Bld) 7.7 % Normal [facility] Comment on above: Order Comment: Speci men Type: BLOOD SPECIMENOrdering Facility: [facility] Address: [address] [place] [address] Performed By: #### 5 7021-8 ####[facility] LABCLIA [id number] [place] [address] Neutrophils (Bld) [#/Vol] 11.55 10*3/uL High 1.45-7.50 [facility] Comment on above: Order Comment: Speci men Type: BLOOD SPECIMENOrdering Facility: [facility] Address: [address] [place] [address] Performed By: #### 5 7021-8 ####[facility] LABCLIA [id number] [place] [address] Neutrophils/100 WBC (Bld) 74.3 % Normal [facility] Comment on above: Order Comment: Speci men Type: BLOOD SPECIMENOrdering Facility: [facility] Address: [address] [place] [address] Performed By: #### 5 7021-8 ####[facility] LABCLIA [id number] [place] [address] Nucleated RBC (Bld) [#/Vol] 10*3/uL Normal <0.01 [facility] Comment on above: Order Comment: Speci men Type: BLOOD SPECIMENOrdering Facility: [facility] Address: [address] [place] [address] Performed By: #### 5 7021-8 ####[facility] LABIA [id number] [place] [address] Nucleated RBC/100 WBC (Bld) [Ratio] 0.0 /100 WBC Normal [facility] Comment on above: Order Comment: Speci men Type: BLOOD SPECIMENOrdering Facility: [facility] Address: [address] [place] [address] Performed By: #### 5 7021-8 ####[facility] LABCLIA [id number] [place] [address] Platelet mean volume (Bld) [Entitic vol] 8.8 fL Low 9.0-12.7 [facility] Comment on above: Order Comment: Speci men Type: BLOOD SPECIMENOrdering Facility: [facility] Address: [address] [place] [address] Performed By: #### 5 7021-8 ####[facility] LABIA [id number] [place] [address] Platelets (Bld) [#/Vol] 413 10*3/uL High 150-400 [facility] Comment on above: Order Comment: Speci men Type: BLOOD SPECIMENOrdering Facility: [facility] Address: [address] [place] [address] Performed By: #### 5 7021-8 ####[facility] LABCLIA [id number] [place] [address] RBC (Bld) [#/Vol] 4.58 10*6/uL Normal 3.90-5.20 [facility] Comment on above: Order Comment: Speci men Type: BLOOD SPECIMENOrdering Facility: [facility] Address: [address] [place] [address] Performed By: #### 5 7021-8 ####[facility] LABCLIA [id number] [place] [address] WBC (Bld) [#/Vol] 15.53 10*3/uL High 3.70-11.00 [facility] Comment on above: Order Comment: Speci men Type: BLOOD SPECIMENOrdering Facility: [facility] Address: [address] [place] [address] Performed By: #### 5 7021-8 ####[facility] LABCLIA [id number] [place] [address] Comprehensive metabolic 2000 panelon 01-17-2023 Albumin [Mass/Vol] 4.5 g/dL Normal 3.9-4.9 [facility] Comment on above: Order Comment: Speci men Type: BLOOD SPECIMENOrdering Facility: [facility] Address: [address] [place] [address] Performed By: #### 2 4323-8 ####[facility] LABCLIA [id number] [place] [address] ALP [Catalytic activity/Vol] 75 U/L Normal 34-123 [facility] Comment on above: Order Comment: Speci men Type: BLOOD SPECIMENOrdering Facility: [facility] Address: [address] [place] [address] Performed By: #### 2 4323-8 ####[facility] LABCLIA [id number] [place] [address] ALT [Catalytic activity/Vol] 12 U/L Normal 7-38 [facility] Comment on above: Order Comment: Speci men Type: BLOOD SPECIMENOrdering Facility: [facility] Address: [address] [place] [address] Performed By: #### 2 4323-8 ####[facility] LABCLIA [id number] [place] [address] Anion gap [Moles/Vol] 9 mmol/L Normal 9-18 [facility] Comment on above: Order Comment: Speci men Type: BLOOD SPECIMENOrdering Facility: [facility] Address: [address] [place] [address] Performed By: #### 2 4323-8 ####[facility] LABCLIA [id number] [place] [address] AST [Catalytic activity/Vol] 17 U/L Normal 13-35 [facility] Comment on above: Order Comment: Speci men Type: BLOOD SPECIMENOrdering Facility: [facility] Address: [address] [place] [address] Performed By: #### 2 4323-8 ####[facility] LABCLIA [id number] [place] [address] Bilirubin [Mass/Vol] 0.4 mg/dL Normal 0.2-1.3 [facility] Comment on above: Order Comment: Speci men Type: BLOOD SPECIMENOrdering Facility: [facility] Address: [address] [place] [address] Performed By: #### 2 4323-8 ####[facility] LABCLIA [id number] [place] [address] Calcium [Mass/Vol] 9.6 mg/dL Normal 8.5-10.2 [facility] Comment on above: Order Comment: Speci men Type: BLOOD SPECIMENOrdering Facility: [facility] Address: [address] [place] [address] Performed By: #### 2 4323-8 ####[facility] LABCLIA [id number] [place] [address] Chloride [Moles/Vol] 101 mmol/L Normal 97-105 [facility] Comment on above: Order Comment: Speci men Type: BLOOD SPECIMENOrdering Facility: [facility] Address: [address] [place] [address] Performed By: #### 2 4323-8 ####[facility] LABCLIA [id number] [place] [address] CO2 [Moles/Vol] 28 mmol/L Normal 22-30 [facility] Comment on above: Order Comment: Speci men Type: BLOOD SPECIMENOrdering Facility: [facility] Address: [address] [place] [address] Performed By: #### 2 4323-8 ####[facility] LABCLIA [id number] [place] [address] Creatinine [Mass/Vol] 0.67 mg/dL Normal 0.58-0.96 [facility] Comment on above: Order Comment: Speci men Type: BLOOD SPECIMENOrdering Facility: [facility] Address: [address] [place] [address] Performed By: #### 2 4323-8 ####[facility] LABCLIA [id number] [place] [address] Creatinine and Glomerular filtration rate.predicted panel (S/P/Bld) 96 mL/min/1.73m??? Normal >=60 [facility] Comment on above: Order Comment: Speci men Type: BLOOD SPECIMENOrdering Facility: [facility] Address: [address] [place] [address] Result Comment: Carmen mated Glomerular Filtration Rate [...] actual GFR. Performed By: #### 2 4323-8 ####[facility] LABCLIA [id number] [place] [address] Glucose [Mass/Vol] 104 mg/dL High 74-99 [facility] Comment on above: Order Comment: Speci men Type: BLOOD SPECIMENOrdering Facility: [facility] Address: [address] [place] [address] Result Comment: The [place] Diabetes Association (ADA) provides guidance for cutoff [...] Standards of Medical Care in Diabetes 2016, [place] [employer] Association. Diabetes Care. 2016.39(Suppl 1). Performed By: #### 2 4323-8 ####[facility] LABCLIA [id number] [place] [address] Potassium [Moles/Vol] 4.1 mmol/L Normal 3.7-5.1 [facility] Comment on above: Order Comment: Speci men Type: BLOOD SPECIMENOrdering Facility: [facility] Address: [address] [place] [address] Performed By: #### 2 4323-8 ####[facility] LABCLIA [id number] [place] [address] Protein [Mass/Vol] 6.9 g/dL Normal 6.3-8.0 [facility] Comment on above: Order Comment: Speci men Type: BLOOD SPECIMENOrdering Facility: [facility] Address: [address] [place] [address] Performed By: #### 2 4323-8 ####[facility] LABCLIA [id number] [place] [address] Sodium [Moles/Vol] 138 mmol/L Normal 136-144 [facility] Comment on above: Order Comment: Speci men Type: BLOOD SPECIMENOrdering Facility: [facility] Address: [place] [address] Performed By: #### 2 4323-8 ####[facility] LABCLIA [id number] [place] [address] Urea nitrogen [Mass/Vol] 11 mg/dL Normal 7-21 [facility] Comment on above: Order Comment: Speci men Type: BLOOD SPECIMENOrdering Facility: [facility] Address: [address] [facility] [place] [address] Performed By: #### 2 4323-8 ####[facility] LABCLIA [id number] [place] [address] ESR Westergren method (Bld) [Velocity]on 01-17-2023 ESR (Bld) [Velocity] 12 mm/h Normal 0-20 [facility] Comment on above: Order Comment: Speci men Type: BLOOD SPECIMENOrdering Facility: [facility] Address: [place] [address] Performed By: #### 4 537-7 ####[facility] LABCLIA [id number] [facility] [id number] [id number] [place] Patient Correspondenceon Patient Correspondence [id number]#1.0 0TIFF Normal [facility] Workers' Comp Officeon 01-02 Workers' Comp Office [id number]#5.0 0TIFF Normal [facility] CNPSammi 11-08-2022 TRACYN Telephone (DERMMN) SHELLY WILSON ([id number]) 1955 F Date Time Provider Department 11/08/22 [...] is working well for the patient. Yanna iMller MD 11/10/2022 2:00 PM Signed Virtual visit for psoriasis please. Christina Pereira 11/11/2022 2:43 PM Signed Patient is scheduling a virtual visit with Dr. Miller. Allergies As of Date: 11/08/2022 Noted Allergy Reaction CODEINE 06/27/2022 8 - GI Upset Date Reviewed: 09/25/2022 Reviewed by: Yasmin Abdul Ma - Fully Assessed Reason for Visit: Patient Question [7207] Prescriptions as of 11/11/2022 - ketoconazole (NIZORAL) [...] Encounter Status:Closed by HALLIE STALLINGS on 11/08/22 [facility] 10-28-2022 CNPN Telephone (DARNELL) SHELLY WILSON ([id number]) 1955 F Date Time Provider Department 10/28/22 [...] us a call back. Lucinda MONGE, RN Lucinda Agarwal RN 10/29/2022 1:38 PM Signed Patient called [...] Encounter Status:Closed by LUCINDA AGARWAL on 10/29/22 [facility] 10-01-2022 CNPN Telephone (DARNELL) SHELLY WILSON ([id number]) 1955 F Date Time Provider Department 10/01/22 JOHN LIZ During your visit today, we recorded the following information about you: Liana Lynn 10/01/2022 4:14 PM Signed Pt called to let dr. Liz know since she changed how she takes her medications her feet and ankles are swelling Please call pt [phone] John Liz MD 10/02/2022 10:53 AM Signed [...] Status:Closed by KARYN KOENIG on 10/02/22 Normal [facility] CBC W Auto Differential pane l (Bld)on 09-25-2022 Basophils (Bld) [#/Vol] 0.08 10*3/uL <0.11 k/uL [facility] Basophils/100 WBC (Bld) 0.4 % [facility] Differential cell count method Nom (Bld) Auto [facility] Eosinophils (Bld) [#/Vol] <0.46 k/uL [facility] Eosinophils/100 WBC (Bld) 0.1 % [facility] Erythrocyte distribution width (RBC) [Ratio] 14.6 % 11.5 - 15.0 % [facility] Hematocrit (Bld) [Volume fraction] 46.6 % High 36.0 - 46.0 % [facility] Hemoglobin (Bld) [Mass/Vol] 15.4 g/dL 11.5 - 15.5 g/dL [facility] Immature granulocytes (Bld) [#/Vol] 0.23 10*3/uL High <0.10 k/uL [facility] Immature granulocytes/100 WBC (Bld) 1.2 % [facility] Lymphocytes (Bld) [#/Vol] 1.81 10*3/uL 1.00 - 4.00 k/uL [facility] Lymphocytes/100 WBC (Bld) 9.3 % [facility] MCH (RBC) [Entitic mass] 30.8 pg 26.0 - 34.[address] [facility] MCHC (RBC) [Mass/Vol] 33.0 g/dL 30.5 - 36.0 g/dL [facility] MCV (RBC) [Entitic vol] 93.2 fL 80.0 - 100.[address] [facility] Monocytes (Bld) [#/Vol] 1.05 10*3/uL High <0.87 k/uL [facility] Monocytes/100 WBC (Bld) 5.4 % [facility] Neutrophils (Bld) [#/Vol] 16.19 10*3/uL High 1.45 - 7.50 k/uL [facility] Neutrophils/100 WBC (Bld) 83.6 % [facility] Nucleated RBC (Bld) [#/Vol] <0.01 k/uL [facility] Nucleated RBC/100 WBC (Bld) [Ratio] 0.0 /[address] [facility] Platelet mean volume (Bld) [Entitic vol] 9.4 fL 9.0 - 12.[address] [facility] Platelets (Bld) [#/Vol] 454 10*3/uL High 150 - 400 k/uL [facility] RBC (Bld) [#/Vol] 5.00 10*6/uL 3.90 - 5.2 0 m/uL [facility] WBC (Bld) [#/Vol] 19.38 10*3/uL High 3.70 - 11 .00 k/uL [facility] Basophils (Bld) [#/Vol] 0.08 10*3/uL Normal <0.11 [facility] Comment on above: Order Comment: Speci men Type: BLOOD SPECIMENOrdering Facility: [facility] Address: [address] [address] Performed By: #### 5 7021-8, 4537-7 ####[facility] LABCLIA [id number] [address] OF [facility] Basophils/100 WBC (Bld) 0.4 % Normal [facility] Comment on above: Order Comment: Speci men Type: BLOOD SPECIMENOrdering Facility: [facility] Address: [address] [address] Performed By: #### 5 7021-8, 4536-7 ####[facility] LABCLIA [id number] [place] [address] [place] Differential cell count method Nom (Bld) Auto Normal [facility] Comment on above: Order Comment: Speci men Type: BLOOD SPECIMENOrdering Facility: [facility] Address: [address] [place], [place] [address] Performed By: #### 5 7021-8, 7 ####[facility] LABCLIA [id number] [place] [address] [place] Eosinophils (Bld) [#/Vol] 10*3/uL Normal <0.46 [facility] Comment on above: Order Comment: Speci men Type: BLOOD SPECIMENOrdering Facility: [facility] Address: [address] [place], [place] [address] Performed By: #### 5 7021-8, 7 ####[facility] LABCLIA [id number] [place] [address] [place] Eosinophils/100 WBC (Bld) 0.1 % Normal [facility] Comment on above: Order Comment: Speci men Type: BLOOD SPECIMENOrdering Facility: [facility] Address: [address] [place], [place] [address] Performed By: #### 5 7021-8, 7 ####[facility] LABCLIA [id number] [place] [address] [place] Erythrocyte distribution width (RBC) [Ratio] 14.6 % Normal 11.5-15.0 [facility] Comment on above: Order Comment: Speci men Type: BLOOD SPECIMENOrdering Facility: [facility] Address: [address] Performed By: #### 5 7021-8, 4536-7 ####[facility] LABCLIA [id number] [place] [id number] [place] Hematocrit (Bld) [Volume fraction] 46.6 % High 36.0-46.0 [facility] Comment on above: Order Comment: Speci men Type: BLOOD SPECIMENOrdering Facility: [facility] Address: [address] [place] [address] Performed By: #### 5 7021-8, 4537-7 ####[facility] LABCLIA [id number] [place] [address] [place] Hemoglobin (Bld) [Mass/Vol] 15.4 g/dL Normal 11.5-15.5 [facility] Comment on above: Order Comment: Speci men Type: BLOOD SPECIMENOrdering Facility: [facility] Address: [address] [place] [address] Performed By: #### 5 7021-8, 7-7 ####[facility] LABCLIA [id number] [place] [address] [place] Immature granulocytes (Bld) [#/Vol] 0.23 10*3/uL High <0.10 [facility] Comment on above: Order Comment: Speci men Type: BLOOD SPECIMENOrdering Facility: [facility] Address: [address] [place] [address] Performed By: #### 5 7021-8, 7-7 ####[facility] LABCLIA [id number] [place] [address] [place] Immature granulocytes/100 WBC (Bld) 1.2 % Normal [facility] Comment on above: Order Comment: Speci men Type: BLOOD SPECIMENOrdering Facility: [facility] Address: [address] [place], [place] [address] Performed By: #### 5 7021-8, 7-7 ####[facility] LABCLIA [id number] [place] [address] [place] Lymphocytes (Bld) [#/Vol] 1.81 10*3/uL Normal 1.00-4.00 [facility] Comment on above: Order Comment: Speci men Type: BLOOD SPECIMENOrdering Facility: [facility] Address: [address] [place] [address] Performed By: #### 5 7021-8, 4536-7 ####[facility] LABCLIA [id number] [address] [facility] Lymphocytes/100 WBC (Bld) 9.3 % Normal [facility] Comment on above: Order Comment: Speci men Type: BLOOD SPECIMENOrdering Facility: [facility] Address: [address] [place] [address] Performed By: #### 5 7021-8, 7 ####[facility] LABCLIA [id number] [place] [address] [place] MCH (RBC) [Entitic mass] 30.8 pg Normal 26.0-34.0 [facility] Comment on above: Order Comment: Speci men Type: BLOOD SPECIMENOrdering Facility: [facility] Address: [address] [place], [place] [address] Performed By: #### 5 7021-8, 7 ####[facility] LABIA [id number] [address] [place] MCHC (RBC) [Mass/Vol] 33.0 g/dL Normal 30.5-36.0 [facility] Comment on above: Order Comment: Speci men Type: BLOOD SPECIMENOrdering Facility: [facility] Address: [address] [place], [place] [address] Performed By: #### 5 7021-8, 4536-7 ####[facility] LABCLIA [id number] [address] [place] MCV (RBC) [Entitic vol] 93.2 fL Normal 80.0-100.0 [facility] Comment on above: Order Comment: Speci men Type: BLOOD SPECIMENOrdering Facility: [facility] Address: [address] Performed By: #### 5 7021-8, 4536-7 ####[facility] LABCLIA [id number] [place] [address] [place] Monocytes (Bld) [#/Vol] 1.05 10*3/uL High <0.87 [facility] Comment on above: Order Comment: Speci men Type: BLOOD SPECIMENOrdering Facility: [facility] Address: [address] Performed By: #### 5 7021-8, 4536-7 ####[facility] LABCLIA [id number] [place] [address] [place] Monocytes/100 WBC (Bld) 5.4 % Normal [facility] Comment on above: Order Comment: Speci men Type: BLOOD SPECIMENOrdering Facility: [facility] Address: [address] Performed By: #### 5 7021-8, 4536-7 ####[facility] LABIA [id number] [place] [address] [place] Neutrophils (Bld) [#/Vol] 16.19 10*3/uL High 1.45-7.50 [facility] Comment on above: Order Comment: Speci men Type: BLOOD SPECIMENOrdering Facility: [facility] Address: [address] Performed By: #### 5 7021-8, 4536-7 ####[facility] LABCLIA [id number] [place] [address] [place] Neutrophils/100 WBC (Bld) 83.6 % Normal [facility] Comment on above: Order Comment: Speci men Type: BLOOD SPECIMENOrdering Facility: [facility] Address: [address] [place] [address] Performed By: #### 5 7021-8, 4536-7 ####[facility] LABCLIA [id number] [place] [address] [place] Nucleated RBC (Bld) [#/Vol] 10*3/uL Normal <0.01 [facility] Comment on above: Order Comment: Speci men Type: BLOOD SPECIMENOrdering Facility: [facility] Address: [address] [place] [address] Performed By: #### 5 7021-8, 4536-7 ####[facility] LABCLIA [id number] [place] [address] [place] Nucleated RBC/100 WBC (Bld) [Ratio] 0.0 /100 WBC Normal [facility] Comment on above: Order Comment: Speci men Type: BLOOD SPECIMENOrdering Facility: [facility] Address: [address] [place] [address] Performed By: #### 5 7021-8, 4536-7 ####[facility] LABCLIA [id number] [place] [address] [place] Platelet mean volume (Bld) [Entitic vol] 9.4 fL Normal 9.0-12.7 [facility] Comment on above: Order Comment: Speci men Type: BLOOD SPECIMENOrdering Facility: [facility] Address: [address] [place] [address] Performed By: #### 5 7021-8, 7 ####[facility] LABCLIA [id number] [place] [address] [place] Platelets (Bld) [#/Vol] 454 10*3/uL High 150-400 [facility] Comment on above: Order Comment: Speci men Type: BLOOD SPECIMENOrdering Facility: [facility] Address: [address] [place], [place] [address] Performed By: #### 5 7021-8, 7-7 ####[facility] LABCLIA [id number] [place] [address] [place] RBC (Bld) [#/Vol] 5.00 10*6/uL Normal 3.90-5.20 [facility] Comment on above: Order Comment: Speci men Type: BLOOD SPECIMENOrdering Facility: [facility] Address: [address] [place] [address] Performed By: #### 5 7021-8, 4537-7 ####[facility] LABCLIA [id number] [place] [address] [place] WBC (Bld) [#/Vol] 19.38 10*3/uL High 3.70-11.00 [facility] Comment on above: Order Comment: Speci men Type: BLOOD SPECIMENOrdering Facility: [facility] Address: [address] [place] [address] Performed By: #### 5 7021-8, 4537-7 ####[facility] LABCLIA [id number] [address] [place] CNOVon 09-25-2022 CNOV Office Visit (DARNELL ) SHELLY WILSON ([id number]) 1955 F Date Time Provider Department 09/25/22 [...] Dr Lala her PCP from [facility] in [place] prescribed prednisone 40 mg/d x 5. Reduced [...] John Liz MD Referring Provider: JOHN LIZ [[id number]] Allergies As of Date: 09/25/2022 Noted Allergy Reaction CODEINE 06/27/2022 8 - GI Upset Date Reviewed: 09/25/2022 Reviewed by: Chantell Minaya (more content not included)... Normal [facility] Comprehensive metabolic 2000 panelon 09-25-2022 Albumin [Mass/Vol] 4.2 g/dL Normal 3.9-4.9 [facility] Comment on above: Order Comment: Speci men Type: BLOOD SPECIMENOrdering Facility: [facility] Address: [address] [address] Performed By: #### 2 4323-8 ####[facility] LABCLIA [id number] [place] [address] [place] ALP [Catalytic activity/Vol] 72 U/L Normal 34-123 [facility] Comment on above: Order Comment: Speci men Type: BLOOD SPECIMENOrdering Facility: [facility] Address: [address] [address] Performed By: #### 2 4323-8 ####[facility] LABCLIA [id number] [place] [address] [place] ALT [Catalytic activity/Vol] 28 U/L Normal 7-38 [facility] Comment on above: Order Comment: Speci men Type: BLOOD SPECIMENOrdering Facility: [facility] Address: [address] [address] Performed By: #### 2 4323-8 ####[facility] LABCLIA [id number] [place] [address] [place] Anion gap [Moles/Vol] 12 mmol/L Normal 9-18 [facility] Comment on above: Order Comment: Speci men Type: BLOOD SPECIMENOrdering Facility: [facility] Address: [address] [address] Performed By: #### 2 4323-8 ####[facility] LABCLIA [id number] [place] [address] [place] AST [Catalytic activity/Vol] 24 U/L Normal 13-35 [facility] Comment on above: Order Comment: Speci men Type: BLOOD SPECIMENOrdering Facility: [facility] Address: [address] [place] [address] Performed By: #### 2 4323-8 ####[facility] LABCLIA [id number] [place] [address] [place] Bilirubin [Mass/Vol] 0.4 mg/dL Normal 0.2-1.3 [facility] Comment on above: Order Comment: Speci men Type: BLOOD SPECIMENOrdering Facility: [facility] Address: [address] [place] [address] Performed By: #### 2 4323-8 ####[facility] LABCLIA [id number] [place] [address] [place] Calcium [Mass/Vol] 9.9 mg/dL Normal 8.5-10.2 [facility] Comment on above: Order Comment: Speci men Type: BLOOD SPECIMENOrdering Facility: [facility] Address: [address] [place] [address] Performed By: #### 2 4323-8 ####[facility] LABCLIA [id number] [place] [address] [place] Chloride [Moles/Vol] 102 mmol/L Normal 97-105 [facility] Comment on above: Order Comment: Speci men Type: BLOOD SPECIMENOrdering Facility: [facility] Address: [address] [place] [address] Performed By: #### 2 4323-8 ####[facility] LABCLIA [id number] [place] [address] [place] CO2 [Moles/Vol] 26 mmol/L Normal 22-30 [facility] Comment on above: Order Comment: Speci men Type: BLOOD SPECIMENOrdering Facility: [facility] Address: [address] [address] Performed By: #### 2 4323-8 ####[facility] [id number] [address] STATES OF [facility] Creatinine [Mass/Vol] 0.62 mg/dL Normal 0.58-0.96 [facility] Comment on above: Order Comment: Speci men Type: BLOOD SPECIMENOrdering Facility: [facility] Address: [address] [address] Performed By: #### 2 4323-8 ####[facility] [id number] [address] OF [facility] ESTIMATED GLOMERULAR FILTRATION RATE 98 mL/min/1.73m??? Normal >=60 [facility] Comment on above: Order Comment: Speci men Type: BLOOD SPECIMENOrdering Facility: [facility] Address: [address] [address] Result Comment: Carmen mated Glomerular Filtration Rate [...] actual GFR. Performed By: #### 2 4323-8 ####[facility] [id number] [place] [address] [place] Glucose [Mass/Vol] 101 mg/dL High 74-99 [facility] Comment on above: Order Comment: Roberti men Type: BLOOD SPECIMENOrdering Facility: [facility] Address: [address] [place] [address] Result Comment: The [place] [employer] (ADA) provides guidance for cutoff [...] Standards of Medical Care in Diabetes 2016, [place] [employer]. Diabetes Care. 2016.39(Suppl 1). Performed By: #### 2 4323-8 ####[facility] LABCLIA [id number] [place] [address] [place] Potassium [Moles/Vol] 4.6 mmol/L Normal 3.7-5.1 [facility] Comment on above: Order Comment: Speci men Type: BLOOD SPECIMENOrdering Facility: [facility] Address: [address] [place] [address] Performed By: #### 2 4323-8 ####[facility] LABIA [id number] [place] [address] [place] Protein [Mass/Vol] 6.8 g/dL Normal 6.3-8.0 [facility] Comment on above: Order Comment: Roberti men Type: BLOOD SPECIMENOrdering Facility: [facility] Address: [address] [address] Performed By: #### 2 4323-8 ####[facility] LABIA [id number] [place] [address] [place] Sodium [Moles/Vol] 140 mmol/L Normal 136-144 [facility] Comment on above: Order Comment: Speci men Type: BLOOD SPECIMENOrdering Facility: [facility] Address: [address] [address] Performed By: #### 2 4323-8 ####[facility] LABCLIA [id number] [place] [address] [place] Urea nitrogen [Mass/Vol] 15 mg/dL Normal 7-21 [facility] Comment on above: Order Comment: Speci men Type: BLOOD SPECIMENOrdering Facility: [facility] Address: [address] [place] [address] Performed By: #### 2 4323-8 ####[facility] LABCLIA [id number] [address] OF [facility] ESR Westergren method (Bld) [Velocity]on 09-25-2022 ESR (Bld) [Velocity] 15 mm/h Normal 0-20 [facility] Comment on above: Order Comment: Speci men Type: BLOOD SPECIMENOrdering Facility: [facility] Address: [address] [place] [address] Performed By: #### 5 7021-8, 4537-7 ####[facility] LABCLIA [id number] [address] OF [facility] CBC W Auto Differential pane l (Bld)on 08-06-2022 Basophils (Bld) [#/Vol] 0.11 10*3/uL High <0.11 [facility] Comment on above: Order Comment: Speci men Type: BLOOD SPECIMENOrdering Facility: [facility] Address: [address] [place] [address] Performed By: #### 5 7021-8 ####[facility] LABCLIA [id number] [place] [address] Basophils/100 WBC (Bld) 0.6 % Normal [facility] Comment on above: Order Comment: Speci men Type: BLOOD SPECIMENOrdering Facility: [facility] Address: [address] [place] [address] Performed By: #### 5 7021-8 ####[facility] LABCLIA [id number] [place] [address] Differential cell count method Nom (Bld) Auto Normal [facility] Comment on above: Order Comment: Speci men Type: BLOOD SPECIMENOrdering Facility: [facility] Address: [address] [address] Performed By: #### 5 7021-8 ####[facility] LABCLIA [id number] [place] [address] Eosinophils (Bld) [#/Vol] 0.09 10*3/uL Normal <0.46 [facility] Comment on above: Order Comment: Speci men Type: BLOOD SPECIMENOrdering Facility: [facility] Address: [address] [address] Performed By: #### 5 7021-8 ####[facility] LABCLIA [id number] [place] [address] Eosinophils/100 WBC (Bld) 0.5 % Normal [facility] Comment on above: Order Comment: Speci men Type: BLOOD SPECIMENOrdering Facility: [facility] Address: [address] [place] [address] Performed By: #### 5 7021-8 ####[facility] LABCLIA [id number] [place] [address] Erythrocyte distribution width (RBC) [Ratio] 13.5 % Normal 11.5-15.0 [facility] Comment on above: Order Comment: Speci men Type: BLOOD SPECIMENOrdering Facility: [facility] Address: [address] [place] [address] Performed By: #### 5 7021-8 ####[facility] LABCLIA [id number] [place] [address] Hematocrit (Bld) [Volume fraction] 43.1 % Normal 36.0-46.0 [facility] Comment on above: Order Comment: Speci men Type: BLOOD SPECIMENOrdering Facility: [facility] Address: [address] [place] [address] Performed By: #### 5 7021-8 ####[facility] LABCLIA [id number] [place] [address] Hemoglobin (Bld) [Mass/Vol] 14.2 g/dL Normal 11.5-15.5 [facility] Comment on above: Order Comment: Speci men Type: BLOOD SPECIMENOrdering Facility: [facility] Address: [address] [place] [address] Performed By: #### 5 7021-8 ####[facility] LABCLIA [id number] [place] [address] Immature granulocytes (Bld) [#/Vol] 0.20 10*3/uL High <0.10 [facility] Comment on above: Order Comment: Speci men Type: BLOOD SPECIMENOrdering Facility: [facility] Address: [address] [place] [address] Performed By: #### 5 7021-8 ####[facility] LABCLIA [id number] [place] [address] Immature granulocytes/100 WBC (Bld) 1.1 % Normal [facility] Comment on above: Order Comment: Speci men Type: BLOOD SPECIMENOrdering Facility: [facility] Address: [address] [place] [address] Performed By: #### 5 7021-8 ####[facility] LABCLIA [id number] [place] [address] Lymphocytes (Bld) [#/Vol] 2.21 10*3/uL Normal 1.00-4.00 [facility] Comment on above: Order Comment: Speci men Type: BLOOD SPECIMENOrdering Facility: [facility] Address: [address] [place] [address] Performed By: #### 5 7021-8 ####[facility] LABCLIA [id number] [place] [address] Lymphocytes/100 WBC (Bld) 12.5 % Normal [facility] Comment on above: Order Comment: Speci men Type: BLOOD SPECIMENOrdering Facility: [facility] Address: [address] [place] [address] Performed By: #### 5 7021-8 ####[facility] LABCLIA [id number] [place] [address] MCH (RBC) [Entitic mass] 29.7 pg Normal 26.0-34.0 [facility] Comment on above: Order Comment: Speci men Type: BLOOD SPECIMENOrdering Facility: [facility] Address: [address] [place] [address] Performed By: #### 5 7021-8 ####[facility] LABCLIA [id number] [place] [address] MCHC (RBC) [Mass/Vol] 32.9 g/dL Normal 30.5-36.0 [facility] Comment on above: Order Comment: Speci men Type: BLOOD SPECIMENOrdering Facility: [facility] Address: [address] [place] [address] Performed By: #### 5 7021-8 ####[facility] LABIA [id number] [place] [address] MCV (RBC) [Entitic vol] 90.2 fL Normal 80.0-100.0 [facility] Comment on above: Order Comment: Speci men Type: BLOOD SPECIMENOrdering Facility: [facility] Address: [address] [place] [address] Performed By: #### 5 7021-8 ####[facility] LABCLIA [id number] [place] [address] Monocytes (Bld) [#/Vol] 1.36 10*3/uL High <0.87 [facility] Comment on above: Order Comment: Speci men Type: BLOOD SPECIMENOrdering Facility: [facility] Address: [address] [place] [address] Performed By: #### 5 7021-8 ####[facility] LABCLIA [id number] [place] [address] Monocytes/100 WBC (Bld) 7.7 % Normal [facility] Comment on above: Order Comment: Speci men Type: BLOOD SPECIMENOrdering Facility: [facility] Address: [address] [address] Performed By: #### 5 7021-8 ####[facility] LABCLIA [id number] [place] [address] Neutrophils (Bld) [#/Vol] 13.72 10*3/uL High 1.45-7.50 [facility] Comment on above: Order Comment: Speci men Type: BLOOD SPECIMENOrdering Facility: [facility] Address: [address] [address] Performed By: #### 5 7021-8 ####[facility] LABCLIA [id number] [place] [address] Neutrophils/100 WBC (Bld) 77.6 % Normal [facility] Comment on above: Order Comment: Speci men Type: BLOOD SPECIMENOrdering Facility: [facility] Address: [address] [address] Performed By: #### 5 7021-8 ####[facility] LABCLIA [id number] [place] [address] Nucleated RBC (Bld) [#/Vol] 10*3/uL Normal <0.01 [facility] Comment on above: Order Comment: Speci men Type: BLOOD SPECIMENOrdering Facility: [facility] Address: [address] [address] Performed By: #### 5 7021-8 ####[facility] LABCLIA [id number] [place] [address] Nucleated RBC/100 WBC (Bld) [Ratio] 0.0 /100 WBC Normal [facility] Comment on above: Order Comment: Speci men Type: BLOOD SPECIMENOrdering Facility: [facility] Address: [address] [address] Performed By: #### 5 7021-8 ####[facility] LABCLIA [id number] [place] [address] Platelet mean volume (Bld) [Entitic vol] 8.3 fL Low 9.0-12.7 [facility] Comment on above: Order Comment: Speci men Type: BLOOD SPECIMENOrdering Facility: [facility] Address: [address] [place] [address] Performed By: #### 5 7021-8 ####[facility] LABCLIA [id number] [place] [address] Platelets (Bld) [#/Vol] 431 10*3/uL High 150-400 [facility] Comment on above: Order Comment: Speci men Type: BLOOD SPECIMENOrdering Facility: [facility] Address: [address] [place] [address] Performed By: #### 5 7021-8 ####[facility] LABIA [id number] [place] [address] RBC (Bld) [#/Vol] 4.78 10*6/uL Normal 3.90-5.20 [facility] Comment on above: Order Comment: Speci men Type: BLOOD SPECIMENOrdering Facility: [facility] Address: [address] [place] [address] Performed By: #### 5 7021-8 ####[facility] LABIA [id number] [place] [address] WBC (Bld) [#/Vol] 17.69 10*3/uL High 3.70-11.00 [facility] Comment on above: Order Comment: Speci men Type: BLOOD SPECIMENOrdering Facility: [facility] Address: [address] [place] [address] Performed By: #### 5 7021-8 ####[facility] LABCLIA [id number] [place] [address] Comprehensive metabolic 2000 panelon 08-06-2022 Albumin [Mass/Vol] 4.0 g/dL Normal 3.9-4.9 [facility] Comment on above: Order Comment: Speci men Type: BLOOD SPECIMENOrdering Facility: [facility] Address: [address] [place] [address] Performed By: #### 2 4323-8 ####[facility] LABCLIA [id number] [place] [address] ALP [Catalytic activity/Vol] 68 U/L Normal 34-123 [facility] Comment on above: Order Comment: Speci men Type: BLOOD SPECIMENOrdering Facility: [facility] Address: [address] [address] Performed By: #### 2 4323-8 ####[facility] LABCLIA [id number] [place] [address] ALT [Catalytic activity/Vol] 16 U/L Normal 7-38 [facility] Comment on above: Order Comment: Speci men Type: BLOOD SPECIMENOrdering Facility: [facility] Address: [address] [address] Performed By: #### 2 4323-8 ####[facility] LABCLIA [id number] [place] [address] Anion gap [Moles/Vol] 7 mmol/L Low 9-18 [facility] Comment on above: Order Comment: Speci men Type: BLOOD SPECIMENOrdering Facility: [facility] Address: [address] [address] Performed By: #### 2 4323-8 ####[facility] LABCLIA [id number] [place] [address] AST [Catalytic activity/Vol] 16 U/L Normal 13-35 [facility] Comment on above: Order Comment: Speci men Type: BLOOD SPECIMENOrdering Facility: [facility] Address: [address] [address] Performed By: #### 2 4323-8 ####[facility] LABCLIA [id number] [place] [address] Bilirubin [Mass/Vol] 0.4 mg/dL Normal 0.2-1.3 [facility] Comment on above: Order Comment: Speci men Type: BLOOD SPECIMENOrdering Facility: [facility] Address: [address] [place] [address] Performed By: #### 2 4323-8 ####[facility] LABCLIA [id number] [place] [address] Calcium [Mass/Vol] 9.8 mg/dL Normal 8.5-10.2 [facility] Comment on above: Order Comment: Speci men Type: BLOOD SPECIMENOrdering Facility: [facility] Address: [address] [place] [address] Performed By: #### 2 4323-8 ####[facility] LABCLIA [id number] [place] [address] Chloride [Moles/Vol] 102 mmol/L Normal 97-105 [facility] Comment on above: Order Comment: Speci men Type: BLOOD SPECIMENOrdering Facility: [facility] Address: [address] [place] [address] Performed By: #### 2 4323-8 ####[facility] LABCLIA [id number] [place] [address] CO2 [Moles/Vol] 28 mmol/L Normal 22-30 [facility] Comment on above: Order Comment: Speci men Type: BLOOD SPECIMENOrdering Facility: [facility] Address: [address] [place] [address] Performed By: #### 2 4323-8 ####[facility] LABCLIA [id number] [place] [address] Creatinine [Mass/Vol] 0.66 mg/dL Normal 0.58-0.96 [facility] Comment on above: Order Comment: Speci men Type: BLOOD SPECIMENOrdering Facility: [facility] Address: [address] [address] Performed By: #### 2 4323-8 ####[facility] LABCLIA [id number] [place] [address] ESTIMATED GLOMERULAR FILTRATION RATE 97 mL/min/1.73m??? Normal >=60 [facility] Comment on above: Order Comment: Speci men Type: BLOOD SPECIMENOrdering Facility: [facility] Address: [address] [place] [address] Result Comment: Carmen mated Glomerular Filtration Rate [...] actual GFR. Performed By: #### 2 4323-8 ####[facility] LABCLIA [id number] [place] [address] Glucose [Mass/Vol] 118 mg/dL High 74-99 [facility] Comment on above: Order Comment: Speci men Type: BLOOD SPECIMENOrdering Facility: [facility] Address: [address] [place] [address] Result Comment: The [place] [employer] (ADA) provides guidance for cutoff [...] Standards of Medical Care in Diabetes 2016, [place] [employer]. Diabetes Care. 2016.39(Suppl 1). Performed By: #### 2 4323-8 ####[facility] LABCLIA [id number] [place] [address] Potassium [Moles/Vol] 4.3 mmol/L Normal 3.7-5.1 [facility] Comment on above: Order Comment: Speci men Type: BLOOD SPECIMENOrdering Facility: [facility] Address: [address] [place] [address] Performed By: #### 2 4323-8 ####[facility] LABCLIA [id number] [place] [address] Protein [Mass/Vol] 6.6 g/dL Normal 6.3-8.0 [facility] Comment on above: Order Comment: Speci men Type: BLOOD SPECIMENOrdering Facility: [facility] Address: [address] [place] [address] Performed By: #### 2 4323-8 ####[facility] LABCLIA [id number] [place] [address] Sodium [Moles/Vol] 137 mmol/L Normal 136-144 [facility] Comment on above: Order Comment: Speci men Type: BLOOD SPECIMENOrdering Facility: [facility] Address: [address] [place] [address] Performed By: #### 2 4323-8 ####[facility] LABCLIA [id number] [place] [address] Urea nitrogen [Mass/Vol] 16 mg/dL Normal 7-21 [facility] Comment on above: Order Comment: Speci men Type: BLOOD SPECIMENOrdering Facility: [facility] Address: [address] [place] [address] Performed By: #### 2 4323-8 ####[facility] LABIA [id number] [place] [address] ESR Westergren method (Bld) [Velocity]on 08-06-2022 ESR (Bld) [Velocity] 18 mm/h Normal 0-20 [facility] Comment on above: Order Comment: Speci men Type: BLOOD SPECIMENOrdering Facility: [facility] Address: [address] [place] [address] Performed By: #### 4 537-7 ####[facility] LABCLIA [id number] [address] HBV core Ab Ser Qlon 023 HBV core Ab Ql (S) Negative Normal Negative [facility] Comment on above: Order Comment: Speci men Type: BLOOD SPECIMENOrdering Facility: [facility] Address: [address] [place] [address] Result Comment: No e vidence of current or past infection with Hepatitis B virus. Should recent infection be suspected, repeat testing may be considered 3-4 weeks after this draw. Performed By: #### 1 6933-4, 5-3, 36546-7 ####[facility] LABCLIA [id number] [address] HBV surface Ab Ql (S)on 07-19 HBV surface Ab Qn (S) <8.00 Low >=12.00 [facility] Comment on above: Order Comment: Speci men Type: BLOOD SPECIMENOrdering Facility: [facility] Address: [address] [place] [address] Performed By: #### 1 6933-4, 5-3, 47499-9 ####[facility] LABCLIA [id number] [address] [place] HBV surface Ab Ser Qlon 07-19 HBV surface Ab Ql (S) Negative Abnormal Positive [facility] Comment on above: Order Comment: Speci men Type: BLOOD SPECIMENOrdering Facility: [facility] Address: [address] [place] [address] Result Comment: No e vidence of antibodies to Hepatitis B surface antigen. Performed By: #### 1 6933-4, 5195-3, 27143-3 ####[facility] LABCLIA [id number] [address] [place] HBV surface Ag Ser Qlon 07-19 HBV surface Ag Ql (S) Negative Normal Negative [facility] Comment on above: Order Comment: Speci men Type: BLOOD SPECIMENOrdering Facility: [facility] Address: [address] [place] [address] Performed By: #### 1 6933-4, 5195-3, 59240-0 ####[facility] LABIA [id number] [address] HCV Ab Ser Qlon 08-06-2022 HCV Ab Ql (S) Negative Normal Negative [facility] Comment on above: Order Comment: Speci men Type: BLOOD SPECIMENOrdering Facility: [facility] Address: [address] [place] [address] Result Comment: The result suggests no evidence of active infection with Hepatitis C virus. Should recent infection be suspected, repeat testing may be considered 4-6 weeks after this draw. Performed By: #### 1 6128-1 ####[facility] LABCLIA [id number] [address] OF [facility] Workers' Comp Officeon 07-26 Workers' Comp Office [id number]#1. 00CD:127 Normal [facility] CNOVon 06-27-2022 CNOV Office Visit (DERMMN ) SHELLY WILSON ([id number]) 1955 F Date Time Provider Department 06/27/22 [...] Lymph 1.00 - 4.00 k/uL 4.49 (H) [place]% % 7.0 Abs [place] <0.87 k/uL 1.50 (H) Eosin% % 0.0 [...] skin folds (more content not included)... Normal [facility] Consultation Noteon 06-28-19 Consultation Note Chief [...] after the procedure for repeat evaluation. 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 She said please send Rx to [facility] pharmacy in [place], [place] on [facility]. She also notes that her hands are stiff and swollen again. She stopped prednisone Friday (she is out of pills) and the stiffness and swelling came back this morning. Also - she made an appointment to see Derm at [facility]. Her appointment is tomorrow 06/27. John Liz [...] 2 CBC + DIFF [SQCBCDIF] Order #: [id number] FUTURE COMP METABOLIC PANEL [SQCMP] Order #: [id number] FUTURE SED RATE WESTERGREN [SQWSR] Order #: [id number] FUTURE HEP REMOTE PANEL BL [SQHREMOP] Order #: [id number] FUTURE Prescriptions as of 06/26/2022 - methotrexate [...] Number: 76 (more content not included)... Normal [facility] Consent for Treatmenton 06-17 Consent for Treatment [id number]#1. 00CD:127 Normal [facility] Office/Clinic Note-Physician on 06-26-2022 Office/Clinic Note-Physician [id number]#1.0 0CD:127 Normal [facility] Patient Correspondenceon Patient Correspondence [id number]#1.0 0CD:127 Normal [facility] Patient Correspondence [id number]#1.0 0CD:127 Normal [facility] Patient History Officeon Patient History Office [id number]#1.0 0CD:127 Normal [facility] ESR Westergren method (Bld) [Velocity]on 06-25-2022 ESR (Bld) [Velocity] 21 mm/h High 0 - 20 mm/hr [facility] CBC W Auto Differential pane l (Bld)on 06-24-2022 Basophils (Bld) [#/Vol] 0.21 10*3/uL High <0.11 [facility] Comment on above: Order Comment: Speci men Type: BLOOD SPECIMENOrdering Facility: [facility] Address: [address] [place] [address] Performed By: #### 5 7021-8, 4536-08 ####[facility] LABCLIA [id number] [place] [address] [place] Basophils/100 WBC (Bld) 1.0 % Normal [facility] Comment on above: Order Comment: Speci men Type: BLOOD SPECIMENOrdering Facility: [facility] Address: [address] [place] [address] Performed By: #### 5 7021-8, 7 ####[facility] LABCLIA [id number] [place] [address] [place] Differential cell count method Nom (Bld) Manual Normal [facility] Comment on above: Order Comment: Speci men Type: BLOOD SPECIMENOrdering Facility: [facility] Address: [address] [place] [address] Performed By: #### 5 7021-8, 7 ####[facility] LABCLIA [id number] [place] [address] [place] Eosinophils (Bld) [#/Vol] 0.00 10*3/uL Normal <0.46 [facility] Comment on above: Order Comment: Speci men Type: BLOOD SPECIMENOrdering Facility: [facility] Address: [address] [place] [address] Performed By: #### 5 7021-8, 7 ####[facility] LABCLIA [id number] [address] [place] Eosinophils/100 WBC (Bld) 0.0 % Normal [facility] Comment on above: Order Comment: Speci men Type: BLOOD SPECIMENOrdering Facility: [facility] Address: [address] [place], [place] [address] Performed By: #### 5 7021-8, 4536-7 ####[facility] LABCLIA [id number] [place] [address] [place] Erythrocyte distribution width (RBC) [Ratio] 12.4 % Normal 11.5-15.0 [facility] Comment on above: Order Comment: Speci men Type: BLOOD SPECIMENOrdering Facility: [facility] Address: [address] [place], [place] [address] Performed By: #### 5 7021-8, 4537-7 ####[facility] LABCLIA [id number] [place] [address] [place] Hematocrit (Bld) [Volume fraction] 42.2 % Normal 36.0-46.0 [facility] Comment on above: Order Comment: Speci men Type: BLOOD SPECIMENOrdering Facility: [facility] Address: [address] [place], [place] [address] Performed By: #### 5 7021-8, 4537-7 ####[facility] LABCLIA [id number] [place] [address] [place] Hemoglobin (Bld) [Mass/Vol] 14.5 g/dL Normal 11.5-15.5 [facility] Comment on above: Order Comment: Speci men Type: BLOOD SPECIMENOrdering Facility: [facility] Address: [address] [place], [place] [address] Performed By: #### 5 7021-8, 7-7 ####[facility] LABCLIA [id number] [place] [address] [place] Lymphocytes (Bld) [#/Vol] 4.49 10*3/uL High 1.00-4.00 [facility] Comment on above: Order Comment: Speci men Type: BLOOD SPECIMENOrdering Facility: [facility] Address: [address] [place], [place] [address] Performed By: #### 5 7021-8, 7-7 ####[facility] LABCLIA [id number] [place] [address] [place] Lymphocytes/100 WBC (Bld) 21.0 % Normal [facility] Comment on above: Order Comment: Speci men Type: BLOOD SPECIMENOrdering Facility: [facility] Address: [address] [place] [address] Performed By: #### 5 7021-8, 4537-7 ####[facility] LABCLIA [id number] [address] [place] MCH (RBC) [Entitic mass] 30.9 pg Normal 26.0-34.0 [facility] Comment on above: Order Comment: Speci men Type: BLOOD SPECIMENOrdering Facility: [facility] Address: [address] [place] [address] Performed By: #### 5 7021-8, 453-7 ####[facility] LABIA [id number] [address] [place] MCHC (RBC) [Mass/Vol] 34.4 g/dL Normal 30.5-36.0 [facility] Comment on above: Order Comment: Speci men Type: BLOOD SPECIMENOrdering Facility: [facility] Address: [address] [place] [address] Performed By: #### 5 7021-8, 4536-7 ####[facility] LABIA [id number] [place] [address] [place] MCV (RBC) [Entitic vol] 90.0 fL Normal 80.0-100.0 [facility] Comment on above: Order Comment: Speci men Type: BLOOD SPECIMENOrdering Facility: [facility] Address: [address] [place], [place] [address] Performed By: #### 5 7021-8, 4537-7 ####[facility] LABIA [id number] [place] [address] [place] Monocytes (Bld) [#/Vol] 1.50 10*3/uL High <0.87 [facility] Comment on above: Order Comment: Speci men Type: BLOOD SPECIMENOrdering Facility: [facility] Address: [address] [place], [place] [address] Performed By: #### 5 7021-8, 7 ####[facility] LABCLIA [id number] [place] [address] [place] Monocytes/100 WBC (Bld) 7.0 % Normal [facility] Comment on above: Order Comment: Speci men Type: BLOOD SPECIMENOrdering Facility: [facility] Address: [address] [place], [place] [address] Performed By: #### 5 7021-8, 4536-08 ####[facility] LABCLIA [id number] [place] [address] [place] MYELO% 1.0 % Normal [facility] Comment on above: Order Comment: Speci men Type: BLOOD SPECIMENOrdering Facility: [facility] Address: [address] [place], [place] [address] Performed By: #### 5 7021-8, 4536-08 ####[facility] LABCLIA [id number] [place] [address] [place] Neutrophils (Bld) [#/Vol] 14.95 10*3/uL High 1.45-7.50 [facility] Comment on above: Order Comment: Speci men Type: BLOOD SPECIMENOrdering Facility: [facility] Address: [address] [place], [place] [address] Performed By: #### 5 7021-8, 4536-08 ####[facility]CL[facility] [id number] [place] [address] [place] Neutrophils/100 WBC (Bld) 70.0 % Normal [facility] Comment on above: Order Comment: Speci men Type: BLOOD SPECIMENOrdering Facility: [facility] Address: [address] [place], [place] [address] Performed By: #### 5 7021-8, 4536- ####[facility] [id number] [place] [address] [place] Nucleated RBC (Bld) [#/Vol] 10*3/uL Normal <0.01 [facility] Comment on above: Order Comment: Speci men Type: BLOOD SPECIMENOrdering Facility: [facility] Address: [address] [place] [address] Performed By: #### 5 7021-8, 4536-7 ####[facility] LABIA [id number] [place] [address] [place] Nucleated RBC/100 WBC (Bld) [Ratio] 0.0 /100 WBC Normal [facility] Comment on above: Order Comment: Speci men Type: BLOOD SPECIMENOrdering Facility: [facility] Address: [address] [place] [address] Performed By: #### 5 7021-8, 4536-7 ####[facility] LABIA [id number] [place] [address] [place] Platelet mean volume (Bld) [Entitic vol] 8.6 fL Low 9.0-12.7 [facility] Comment on above: Order Comment: Speci men Type: BLOOD SPECIMENOrdering Facility: [facility] Address: [address] [place], [place] [address] Performed By: #### 5 7021-8, 4536-7 ####[facility] LABIA [id number] [place] [address] [place] Platelets (Bld) [#/Vol] 465 10*3/uL High 150-400 [facility] Comment on above: Order Comment: Speci men Type: BLOOD SPECIMENOrdering Facility: [facility] Address: [address] [place], [place] [address] Performed By: #### 5 7021-8, 4536-7 ####[facility]CL[facility] [id number] [place] [address] [place] Platelets Estimate (Bld) [#/Vol] Increased Normal [facility] Comment on above: Order Comment: Speci men Type: BLOOD SPECIMENOrdering Facility: [facility] Address: [address] [place] [address] Performed By: #### 5 7021-8, 4536-7 ####[facility]CL[facility] [id number] [place] [address] [place] Polychromasia LM Ql (Bld) Slight Normal [facility] Comment on above: Order Comment: Speci men Type: BLOOD SPECIMENOrdering Facility: [facility] Address: [address] [place] [address] Performed By: #### 5 7021-8, 4536-7 ####[facility]CL[facility] [id number] [place] [address] [place] RBC (Bld) [#/Vol] 4.69 10*6/uL Normal 3.90-5.20 [facility] Comment on above: Order Comment: Speci men Type: BLOOD SPECIMENOrdering Facility: [facility] Address: [address] [place] [address] Performed By: #### 5 7021-8, 4536-7 ####[facility]CLIA [id number] [place] [address] [place] RED CELL MORPH Reviewed: unremarkable Normal [facility] Comment on above: Order Comment: Speci men Type: BLOOD SPECIMENOrdering Facility: [facility] Address: [address] [place] [address] Performed By: #### 5 7021-8, 4536-7 ####[facility]CL[facility] [id number] [place] [address] [place] WBC (Bld) [#/Vol] 21.36 10*3/uL High 3.70-11.00 [facility] Comment on above: Order Comment: Speci men Type: BLOOD SPECIMENOrdering Facility: [facility] Address: [address] [address] Performed By: #### 5 7021-8, 4537-7 ####[facility]CLIA [id number] [address] WBC Left Shift Ql (Bld) Present Normal [facility] Comment on above: Order Comment: Speci men Type: BLOOD SPECIMENOrdering Facility: [facility] Address: [address] [place] [address] Performed By: #### 5 7021-8, 4537-7 ####[facility] LABIA [id number] [address] [place] CK SerPl-cCncon 06-24-2022 CK [Catalytic activity/Vol] 37 U/L Low 42-196 [facility] Comment on above: Order Comment: Speci men Type: BLOOD SPECIMENOrdering Facility: [facility] Address: [address] [place] [address] Performed By: #### 2 157-6, 99782-9, 59381-2, 3084-1 ####[facility] LABIA [id number] [address] OF [facility] CNOVon 06-24-2022 CNOV Office Visit (DARNELL ) SHELLY WILSON ([id number]) 1955 F Date Time Provider Department 06/24/22 [...] Dr Lala her PCP from [facility] in [place] prescribed prednisone 40 mg/d x 5. Reduced [...] Rv 3 (more content not included)... Normal [facility] CRP SerPl-mCncon 06-24-2022 CRP [Mass/Vol] 0.5 mg/dL Normal <0.9 [facility] Comment on above: Order Comment: Speci men Type: BLOOD SPECIMENOrdering Facility: [facility] Address: [address] [place] [address] Performed By: #### 1 988-5, 2885-2 ####[facility]CLIA [id number] [place] [address] [place] Comprehensive metabolic 2000 panelon 06-24-2022 Albumin [Mass/Vol] 4.0 g/dL Normal 3.9-4.9 [facility] Comment on above: Order Comment: Speci men Type: BLOOD SPECIMENOrdering Facility: [facility] Address: [address] [place] [address] Performed By: #### 2 157-6, 10287-4, 30191-0, 3084-1 ####[facility]CLIA [id number] [place] [address] [place] ALP [Catalytic activity/Vol] 75 U/L Normal 34-123 [facility] Comment on above: Order Comment: Speci men Type: BLOOD SPECIMENOrdering Facility: [facility] Address: [address] [place] [address] Performed By: #### 2 157-6, 16048-2, 43323-3, 3084-1 ####[facility]CL[facility] [id number] [address] [place] ALT [Catalytic activity/Vol] 21 U/L Normal 7-38 [facility] Comment on above: Order Comment: Speci men Type: BLOOD SPECIMENOrdering Facility: [facility] Address: [address] [place] [address] Performed By: #### 2 157-6, 09991-9, 30083-5, 3084-1 ####[facility] LABCLIA [id number] [address] [address] [place] Anion gap [Moles/Vol] 13 mmol/L Normal 9-18 [facility] Comment on above: Order Comment: Speci men Type: BLOOD SPECIMENOrdering Facility: [facility] Address: [address] [place] [address] Performed By: #### 2 157-6, 97460-3, 57524-3, 3083- ####[facility]CLIA [id number] [address] [address] [place] AST [Catalytic activity/Vol] 15 U/L Normal 13-35 [facility] Comment on above: Order Comment: Speci men Type: BLOOD SPECIMENOrdering Facility: [facility] Address: [address] [place] [address] Performed By: #### 2 157-6, 73334-7, 56053-9, 3083- ####[facility]CLIA [id number] [address] [address] [place] Bilirubin [Mass/Vol] 0.3 mg/dL Normal 0.2-1.3 [facility] Comment on above: Order Comment: Speci men Type: BLOOD SPECIMENOrdering Facility: [facility] Address: [address] [place], [place] [address] Performed By: #### 2 157-6, 37392-7, 31965-0, 3083- ####[facility]CLIA [id number] [address] [address] [place] Calcium [Mass/Vol] 9.8 mg/dL Normal 8.5-10.2 [facility] Comment on above: Order Comment: Speci men Type: BLOOD SPECIMENOrdering Facility: [facility] Address: [address] [place], [place] [address] Performed By: #### 2 157-6, 93723-1, 28000-5, 3083 ####[facility]CLIA [id number] [place] [address] [place] Chloride [Moles/Vol] 100 mmol/L Normal 97-105 [facility] Comment on above: Order Comment: Speci men Type: BLOOD SPECIMENOrdering Facility: [facility] Address: [address] [place] [address] Performed By: #### 2 157-6, 00414-1, 37474-3, [facility]4 ####[facility]CLIA [id number] [place] [address] [place] CO2 [Moles/Vol] 25 mmol/L Normal 22-30 [facility] Comment on above: Order Comment: Speci men Type: BLOOD SPECIMENOrdering Facility: [facility] Address: [address] [place] [address] Performed By: #### 2 157-6, 29661-0, 78339-6, [facility] ####[facility] LABIA [id number] [place] [address] [place] Creatinine [Mass/Vol] 0.71 mg/dL Normal 0.58-0.96 [facility] Comment on above: Order Comment: Speci men Type: BLOOD SPECIMENOrdering Facility: [facility] Address: [address] [place] [address] Performed By: #### 2 157-6, 54249-5, 31551-3, [facility]4 ####[facility] LABIA [id number] [place] [address] [place] ESTIMATED GLOMERULAR FILTRATION RATE 94 mL/min/1.73m??? Normal >=60 [facility] Comment on above: Order Comment: Speci men Type: BLOOD SPECIMENOrdering Facility: [facility] Address: [address] [place] [address] Result Comment: Carmen mated Glomerular Filtration Rate [...] actual GFR. Performed By: #### 2 157-6, 34120-2, 40001-4, 3084-1 ####[facility] LABCLIA [id number] [place] [address] [place] Glucose [Mass/Vol] 62 mg/dL Low 74-99 [facility] Comment on above: Order Comment: Tam purvis Type: BLOOD SPECIMENOrdering Facility: [facility] Address: [address] [place] [address] Result Comment: The [place] [employer] Association (ADA) provides guidance for cutoff [...] Standards of Medical Care in Diabetes 2016, [place] [employer]. Diabetes Care. 2016.39(Suppl 1). Performed By: #### 2 157-6, 17708-7, 66548-5, 3083- ####[facility] LABCLIA [id number] [place] [id number] [place] Potassium [Moles/Vol] 4.2 mmol/L Normal 3.7-5.1 [facility] Comment on above: Order Comment: Tam purvis Type: BLOOD SPECIMENOrdering Facility: [facility] Address: [address] [id number] Performed By: #### 2 157-6, 73483-2, 29915-7, 3084-1 ####[facility] LABCLIA [id number] [address] [address] [place] Protein [Mass/Vol] 6.8 g/dL Normal 6.3-8.0 [facility] Comment on above: Order Comment: Speci men Type: BLOOD SPECIMENOrdering Facility: [facility] Address: [address] [place] [address] Performed By: #### 2 157-6, 22284-9, 12060-8, 3084-1 ####[facility] LABCLIA [id number] [place] [address] [place] Sodium [Moles/Vol] 138 mmol/L Normal 136-144 [facility] Comment on above: Order Comment: Speci men Type: BLOOD SPECIMENOrdering Facility: [facility] Address: [address] [place] [address] Performed By: #### 2 157-6, 56564-3, 88603-3, 3084-1 ####[facility] LABCLIA [id number] [place] [address] [place] Urea nitrogen [Mass/Vol] 17 mg/dL Normal 7-21 [facility] Comment on above: Order Comment: Speci men Type: BLOOD SPECIMENOrdering Facility: [facility] Address: [address] [place] [address] Performed By: #### 2 157-6, 77149-3, 78650-8, 3084-1 ####[facility] LABCLIA [id number] [place] [address] [place] Cyclic citrullinated peptide IgG Qnon 06-24-2022 CCP ANTIBODY IGG QUALITATIVE Positive Abnormal Negative [facility] Comment on above: Order Comment: Speci men Type: BLOOD SPECIMENOrdering Facility: [facility] Address: [address] [place] [address] Performed By: #### 4 7383-5, 21282-7 ####[facility]CLIA [id number] [place] [address] [place] ESR Westergren method (Bld) [Velocity]on 06-24-2022 ESR (Bld) [Velocity] 21 mm/h High 0-20 [facility] Comment on above: Order Comment: Speci men Type: BLOOD SPECIMENOrdering Facility: [facility] Address: [address] [address] Performed By: #### 5 7021-8, 4537-7 ####[facility] LABIA [id number] [place] [address] [place] No Panel Informationon 06-[address] [facility] Nuclear Ab IA Ql (S)on 06-24 BABATUNDE BY EIA, QUAL Negative Normal Negative [facility] Comment on above: Order Comment: Speci men Type: BLOOD SPECIMENOrdering Facility: [facility] Address: [address] [place] [address] Result Comment: The qualitative antinuclear antibody screen test performed using enzyme immunoassay including the following antigens: dsDNA, histones, SS-A, SS-B, Sm, Sm/DIALYSIS SOCIAL WORKER, Scl-70, Elham-1, and centromeric antigens. Performed By: #### 4 7383-5, 66174-2 ####[facility] LABIA [id number] [place] [address] [place] PROTEIN ELECTROPHORESIS SERU M (P)on 06-24-2022 Albumin [Mass/Vol] 3.51 g/dL Normal 3.43-5.41 [facility] Comment on above: Order Comment: Speci men Type: BLOOD SPECIMENOrdering Facility: [facility] Address: [address] [place] [address] Performed By: #### L [id number] ####[facility] LABIA [id number] [place] [address] [place] Alpha 1 globulin Elph [Mass/Vol] 0.36 g/dL Normal 0.18-0.43 [facility] Comment on above: Order Comment: Speci men Type: BLOOD SPECIMENOrdering Facility: [facility] Address: [address] [address] Performed By: #### L [id number] ####[facility] LABCLIA [id number] [address] [place] Alpha 2 globulin Elph [Mass/Vol] 1.04 g/dL High 0.42-0.98 [facility] Comment on above: Order Comment: Speci men Type: BLOOD SPECIMENOrdering Facility: [facility] Address: [address] [address] Performed By: #### L [id number] ####[facility] LABIA [id number] [address] [place] Beta globulin Elph [Mass/Vol] 0.88 g/dL Normal 0.61-1.17 [facility] Comment on above: Order Comment: Speci men Type: BLOOD SPECIMENOrdering Facility: [facility] Address: [address] [address] Performed By: #### L [id number] ####[facility] LABIA [id number] [address] [place] Gamma globulin Elph [Mass/Vol] 0.71 g/dL Normal 0.53-1.51 [facility] Comment on above: Order Comment: Speci men Type: BLOOD SPECIMENOrdering Facility: [facility] Address: [address] [place] [address] Performed By: #### L [id number] ####[facility] LABIA [id number] [place] [address] [place] M-PROTEIN LOCATION Normal [facility] Comment on above: Order Comment: Speci men Type: BLOOD SPECIMENOrdering Facility: [facility] Address: [address] [address] Result Comment: Not Applicable. Performed By: #### L [id number] ####[facility] LABIA [id number] [address] [place] Protein Fractions [Interp] No definitive M protein is identified on protein electrophoresis. Normal No definitive M protein is identified on protein electrophoresi s. [facility] Comment on above: Order Comment: Speci men Type: BLOOD SPECIMENOrdering Facility: [facility] Address: [address] [place] [address] Performed By: #### L [id number] ####[facility] LABIA [id number] [address] [place] Protein.monoclonal Elph [Mass/Vol] 0.00 g/dL Normal <=0.00 [facility] Comment on above: Order Comment: Speci men Type: BLOOD SPECIMENOrdering Facility: [facility] Address: [address] [place] [address] Performed By: #### L [id number] ####[facility] [id number] [address] SPE STAFF REVIEW Reviewed by Dr. Jacob Benitez MD [facility] Comment on above: Order Comment: Speci men Type: BLOOD SPECIMENOrdering Facility: [facility] Address: [address] [place] [address] Performed By: #### L [id number] ####[facility] LABIA [id number] [place] [address] [place] Prot SerPl-mCncon 06-24-2022 Protein [Mass/Vol] 6.5 g/dL Normal 6.3-8.0 [facility] Comment on above: Order Comment: Speci men Type: BLOOD SPECIMENOrdering Facility: [facility] Address: [address] [place] [address] Performed By: #### 1 988-5, 2885-2 ####[facility] LABIA [id number] [address] [place] Rheumatoid fact SerPl-aCncon 06-24-2022 Rheumatoid factor Qn [IU]/mL Normal <16 [facility] Comment on above: Order Comment: Speci men Type: BLOOD SPECIMENOrdering Facility: [facility] Address: [address] [place], [place] [id number] Performed By: #### 2 157-6, 91278-4, 61984-7, 3084-1 ####[facility] LABCLIA [id number] [place] [id number] [facility] [place] Urate SerPl-mCncon Urate [Mass/Vol] 4.4 mg/dL Normal 2.5-6.6 [facility] Comment on above: Order Comment: Speci men Type: BLOOD SPECIMENOrdering Facility: [facility] Address: [address] [place], [place] [id number] Performed By: #### 2 157-6, 36141-7, 47074-5, 3084-1 ####[facility] LABCLIA [id number] [place] [id number] [place] XR CHEST 2V [...] Exaggerated thoracic kyphosis with degenerative changes. IMPRESSION: School Childcare Attendant: RENA Transcribe Date/Time: Jun 27 2022 2:09P Dictated by : LEE HGIGINS MD This examination was interpreted and the report reviewed and electronically signed by: LEE HIGGINS MD on Jun 27 2022 2:10PM EST [id number] Normal [facility] XR FOOT 3V AP/LAT/OBL BILon 06-24-2022 [...] IMPRESSION: Degenerative arthritis. No evidence of erosions. School Childcare Attendant: [facility]PITALChang Transcribe Date/Time: Jun 24 2022 3:36P Dictated by : REA MILLER MD This examination was interpreted and the report reviewed and electronically signed by: REA MILLER MD on Jun 24 2022 3:37PM EST [id number] Normal [facility] XR HAND/WRIST SURVEY 1V PA B [...] IMPRESSION: Degenerative arthritis. No evidence of erosions. School Childcare Attendant: RENA Transcribe Date/Time: Jun 24 2022 3:34P Dictated by : REA MILLER MD This examination was interpreted and the report reviewed and electronically signed by: REA MILLER MD on Jun 24 2022 3:36PM EST [id number] Normal [facility] cCP IgG SerPl-aCncon 023 Cyclic citrullinated peptide IgG Qn 78 Units High <20 [facility] Comment on above: Order Comment: Speci men Type: BLOOD SPECIMENOrdering Facility: [facility] Address: [address] [place] [address] Performed By: #### 4 7383-5, 17247-6 ####[facility] LABCLIA [id number] [address] OF [facility] US VENOUS DOPPLER BENJAMIN Leonard 06-19-2022 US [...] by: WADE YU Date: 2022-06-19 20:02 Normal [facility] Coding Summary.on 06-05-2022 Coding Summary. CD:[id number] Ww +PGhlYWQ+KF3TMXUuU47zi HEnfJ8vF0QWTUbDXyuqDTG SVCbPNySxgnVpRK9alGPjN XJu IC8+WT8eFBGyJwzcyXXmd5 K4zFQ0L46hmh9uIUzmqFN4 WQLxGuGmtwsyn3qtzIt4DS cuNmluOyBt RKIizA68RAF8dI82Zq50wY DvlSCpy4nkfOf8OmNzTBYc DXG9nTkvLEcqh7OkXCOkQ3 6alVDll7P5 LSWdaNghrBEfHqNjaDT7pL 1iDBwjaelpx1biwkzdXzu1 pr88lDAiv3V6vAY5V1Pcmu G1LYIccIIc JpselHLLeI9uhxdxr0ztop xhCuLkIOTwLQd0DNd1DGBf rSgrJuPeBU00DAP0FAZlkr ElZ9JbPKJg dVlzWpP3e9Q9Hh2QK9GKSd hrN1EAVGQBEObmtRA+PC90 bn20F4LyJvrrOoq5JZXwZO Y7oCN8dA1i MVNxASkhq7V6hOK8F5Bkgd Mjtw8ry2euDPXnZYpyH19y oVBur7M7TNRvbDM2FTVjcQ aoPrLhbZ45 Oyc+SSVweJlae4MwMkovq3 kkk7zvwXi5GkrkJBRypmBh mHbzLME3m4YoAh1gZAFchJ T4uQT2dY5f UvNnYnA2OSjpX206CjVqrC NiKulhB24eE5KhsHL+PHRy Ieg7MHYhtYslKB3hM3GzEA RpbmctbGVm wGacZI5dEWYvriwpOIOybD 2yAECuA5h1PjDhNpY6XMad S5NgAVVeayrgDu76rY7vHi MiTkC4IBpg K8EsorK0PJTwgRHtFEmyUQ N0I56rw2B4LSNxGVTySRU6 wLZ5oA3dhLtcvbsdjUJtyM sgdmVydGlj TIhzKNriJ485ZUGlnSbgGj NvZGluZyBEYXRlOiAgMDQv MTkvMjAyMzwvdGQ+PHRkIH P2dRcqPPZw zOJiNYubVr0ehLdqvGduAW 0aYQRtxspdDZNelK9yZLMc tOSpiNynSD6pZQKlifrpl3 66JnLyWZW7 DWGniIEvW6XarW6iRmUvYD QrFHLgV8RkkRHaDQrhR722 WCklTzR9QFXbjtKkU8MyZE FsaWduOiB0 v6T1Nm4Ap4HabwyxD0TxeX AwDfSuTkstXJg4H2EhNbzg dHI+GZ73OCTmWU14XWs6FD W0kAojYZum DPNbB6IgxG5dSlPiVBYtZT RkOyc+PHRhYmxlIHdpZHRo BDtfADWfTkHnaHjyQC8aJp 9yZGVyLWNv wAqrbEFgGzZkc4bfVIDfHX hiIZ9dfDvsL0QarNM5RQEg b6z5Wk16Y09lN9VkdLQ+PG KipGT6gEV7 vW8xByCuZhV1SNiuN298Rv AmsUPdVqgpw0qxd6dilEn8 PeQ4QSEgicPahVptXPK4k5 WlCz36U57o IHdpZHRoPSIxNSUiIHZhbG hmzk2jfH6lYj2+PGNvbCB3 mSX1bU3hReOyCkK5ZXdrB4 49InRvcCIv Ptykr9dau4xpkYs9LmGuNP IhcnRbePuoWDV1w6XvAs11 C2VlaWtud9MjKws1qc65zR Fsw2M9cLZ0 V6SsBXCcgrrxnVIcrQmlKA 6eFSFzsdqbJYAggU2bNGWz J6w2ZxXuAwA6OBljP2Wkbi A1NFHfeDKc ACLlrJORwL4qfjkrc7kedl hiNhMsBKKrVUz3WFe0ZCDk kYbaOlJgOVF6HiE0OEG3kE PhoK9lhOty rvnwkY8vJgt+HPR7oEGulO NONJ2cWjgkaNM+PHRkIHN0 zAckRPwgBHTmkN1sTKOhL2 g8QqVrNfJ9 TGyoB8KnssE7CKWekSVpPT WeqIJAzT1edxfqv2ncspwz TzBlEYOiAPb4MTz0JETqcG duOiBsZWZ0 FzF5QYT5rUNueR5ymOxdfi hagY6bAks+QmlydGggRGF0 EXe2M7OtWad0IJSsmWgnCG 0ncGFkZGlu Lt1kfKyirZmrOO4wVABwwt jic280JpKsv1mtTCPngYEh IEayDLE9U92zj4O2GDAcTS ScKLM2hWE2 qM7onPuerklrqPWglBpkav BiwZazZUhpWRpjS616EXPb eEowOfLfNFd1N6AkOzj1RO XfaTuqEC7p bULgQQjlYc7cbObhqJigUE 6aFGNavikos922AuJjm8rv WCVopVAwZXdcQLT9L35et3 N8IFKiFROb WRH3cFF0gL3gxSbanejbuA VmdDsgdmVydGljYWwtYWxp E401FYBdsOivXxAnyTf1E5 NmJkw1JYMp dYihHG3kkIBvKSanIs6kkA hiwAtoHQ8oOWRsccbvk377 TyYvp8lkLMOywTMhBGbwCN E4S94vu0K8 NNVqHJAqWRH2eTB3wB3iiB lnbjogbGVmdDsgdmVydGlj CPvdOVmuX311ZFNrrAvjKj BhdGllbnQg MKmvUGy7I5BpPysorXH+PC 76ZICxDC25lOObeUJxa1zi tOm4TyRpPVTaGUA2cGscIV rsj1NxXRSa N31vxQEcb8Z5ZVYgvUfvdB OpSpFbrUI0oD1kLTvidqfd f4zxhpksBoabx0rjpq39yH 05R99tPNqy ZHRoPSIzMCUiIHZhbGlnbj 2bvC4xJv0+WSWanAY9iLJ5 dW1jHHNsDvK3AZbdE886Tp RvcCIvPjxj s4rlt9tynGa3WmJ7BFXptf DvhNlsEZT2f8WwPw96E83i IHdpZHRoPSIyMCUiIHZhbG brya7doE3o Ii8+NHXlcKE5yDY5oK8qSe YjOnE9BCoxV719FrGijURz UpdxC18uY3KcsIT+PHRyPj q0JZOslAud WM4pmLRzUBcyGo4fHIU2Gf HnTuYsRJgvX4ZqFPCqdolv xnxihJR1ZPTwREMkyL73Gg 9udDogMTBw fSEWjO2zaudwa6fcpvoxTb MtSBLdMXb5CUh1SHXisObu UzNeMTF9QgQ5WBD8bPSzvR 1hbGlnbjog hX6eE5UvHBWxdkujHj48mE 4bGgOvXsN0JQkgQhw+Qkla Q4OJVxhpSa7ADv1aPAwshY Q+PHRkIHN0 iXedGIhgQAWyjD3uZQReF3 d7JqCvFaI3WTryO6KeGEBn wkbiSy53bQ3fAzSdAtZ2NP luT6QzawH4 CLSixMDoYGjcQUA0K00to1 O6VRVuLIHvAHO8tQB3fU7b bGlnbjogbGVmdDsgdmVydG ljYWwtYWxp M036YAMftHhbNwK0XvRaQa Z9CKG9I7GtMmq6EZBklKly TY6gtCDkFIgmMk1klPygcK lkKS4dBZPs kkebGXKqrI2gAPSkyROcmT nlKV3jIWQzxkgje767GnNy YFR9XTYaoCBuY0ManV3zEx AjMDAwMDAw A9XxmZWgNXqgJ098SLcfZz X9RRCyioPyE7EtGSVndZcx XuQ3i0T7Sp95YvIFLDBjld wvdGQ+PHRk XKT6aJdbVVlyTXUtcW4bXB JrU1l6WeLlXyC4ZOqcU6Vo GIGwfwfpZd30pW0dEtPgEy K9LErzR1Km ngY4ROKyeKSqVYjeQCG9A2 3ay5U1UHIbJYQrPRE8mCL0 cQ0rpIphudtsqIYdjWsrll VydGljYWwt WBbzX727BWImvIlkJiRsvQ FsZTwvdGQ+QYVjSEK9aLjo KDtyCUNpbB3gIQWkP5u0Lg IpIiC1DJkw P6HkRMTffahyLv92cM5rGa SgAiC4LFxzC8BjuyY4LUPs iFHcMSmeIMB8C04ut0S1NR MwMDAwMDA7 xZK3jA4dmXagvrcdcSSobG qquoJfkYdwKZmyHLhrR618 YDSmpQueHb94hWOzyHmttq I7Q0UrWzna dHI+LL35DVWxGQ37tUSbdM Btv4ncxBl0QzEhCWXmSSR4 kWceOAwue7ZyKVFwK54xtX Spe7T9HHBd kSojqSTgZhFwmDH8rA2xAO kgnsiye4rttsqfWbvsi3fr yq73kU57Y70bPOpoPWZlUP IzMCUiIHZh mButvc9oyY2bQb0+PGNvbC Z8wHN2oC8sMiUgLhK3MJza B440AcPcfTBqYbbwq4zuz6 nsdIg5VdSi ZEOnczZaiMvsHJS0e9HoAo 73F63tIGruCZObZYLhHTVe KXGykQapqu2afL5jKp1+PC 1xc7wcik78 vJ82iSQ+IJWgCMI0jUfwBW asTYXvhG6dLVjlBjK1AOWu CoAomX94cHCqMBatMl0nxY enlSfvHU7s NBQwmyehj552JdTom2hnZZ XsrTOqSLglGFZ5B81qc6Y0 SIFiUAExARH6zRA6pP4ijJ lnbjogbGVm dDsgdmVydGljYWwtYWxpZ2 64WNRbcJkoFoDdvFShD3yj hpUFQI7xKapizFF+PHRkIH G4lWkiMVgg YKPsnL6iHJMnS7q9KgJnXm B3VXghR1AmheL0LUQzgJRm NLLbhRSQdD3claqsa6jvrx ogIzAwMDAw ERa4SQb7JTJxzLynBvFdLM Y6NjK1AMT6nUUhiT9euSsm zbreiH2yNcs+RklOOjwvdG Q+PHRkIHN0 aGknSVbjPNXexE9tIZEuB5 o3BqWtJqJ8JHxhA2JmspW4 NKEdpSRoKWWynWPChJ6aod xmo8gmdomz VeHfFMFvUCd4TDe9MGBdcR bvMaEkEPY8HlH3WTG5qEYf dI5dgBibmxuduV1kXac+TV JOOjwvdGQ+ QGJzAYL9uTaeVBwyOXEmdU 1jAGIgR4f2TcKuNnI5TCgs F8VtgjW8IBHatFIiKDBrvN BMrJ0cmjwf w6tykqvyLsFsZUMgTFw0GC v6OEWlmNgpZkIyAEQ4VjC5 ORU8pUSwuW0yqXhauonjoB 9wOyc+UGF5 LQH9PT77QW86K9GhRjdjlM FibGU+PHRhYmxlIHdpZHRo RErqTGJiNnCkuImzUI4fMk 9yZGVyLWNv bGxhcHNl (more content not included)... [facility] MRI Spine Lumbar w/o Contras ton [...] HERMINIO Technologist: FAYE Technical Comments None Normal [facility] XR Spine Lumbosacral Minimum 4 Viewson [...] spine. Lumbar vertebral body heights are maintained. Ftxw-vn-vepnsjwm intervertebral disc height loss throughout the lumbar [...] mGy = na DAP = na Normal [facility] Consent for Treatmenton 05-18 Consent for Treatment [id number]#1.0 0CD:127 Normal [facility] RAD - MRI Screening Formon 0 05-30-2022 RAD - MRI Screening Form [id number]#1. 00CD:127 Normal [facility] Physician Orderon 05-23-2022 Physician Order [id number]#1.0 0CD:127 Normal [facility] Physician Order [id number]#1. 00CD:127 Normal [facility] Physician Order [id number]#1. 00CD:127 Normal [facility] Workers' Comp Officeon 05-23 Workers' Comp Office [id number] [id number]#2. 00CD:127 [facility] Coding Summary.on 05-14-2022 Coding Summary. CD:[id number] Ww +PGhlYWQ+QL7GMGDgA75cd UFxgP1jB0PRPUqJIpifETM SURaKKtJpjuZiDF2wkBNcX XJu IC8+EG4iYBNuWwovtFOkq4 Q7vGW6B33kos9qONihoWB3 JMGyLvStreqmi2dxeWc2GG cuNmluOyBt YUApsJ45IMU8nX07Sc83pU GwfOUch4dreFu6BaUyWRWe QIC4rUsdBQlvz8LbAEAaN6 5qpWPdv0R2 YOBedJchmAIdWyEoiOZ8yM 5yIDradhunr1fzwyqiOfi8 ss20bTYxn9E2iEK7J1Bcte S2QNCnpKGo EjldjOJKuR9plmuql4axqu ztAgUjYRPwTHe3EAi8AIQn jNvcMdAtGZ28NIL6NLHbbq OjA7QeACRz aVopDpZ7g2J2Gh5YQ0JUIo tjY4UAANTZMCrezKH+PC90 gw34G7KyCknzAsy3KJMgGX G9wYU3bK9r LCMqPMfrj3U8hRZ7D3Mfce Doah4gx9ayUBJlTOhmN50i uWQza6F2DGGctTU7QTJivR twPaWpzY27 Oyc+MNMfgQzav9IkJnqqs2 pej6orpDm7AzuuDIEjmhYv kVphRUM2e1AbQa1rWCLrrE U5aJH1fB0b YcNxSyD7EUeeW886CoXytO WpMjkoD21wX6JzfWY+PHRy Sfq6ZCXojNmtLL2oX8FkMO RpbmctbGVm lBwnLS6zIWXtoxnzEUSliX 9vNAEzI9i5MoIqFmR4DMcl S6XzEPLokpeqFx99jZ7iVt DkDbV7HUkf V8SbitQ8LUGguKCkWFwvGX Z7R39cy5B9QNJpXCQvJRW7 pIG8sD6hdUkapgwdpSGrhL sgdmVydGlj VLprQEuvC433IDXwnUfzNy NvZGluZyBEYXRlOiAgMDMv MjgvMjAyMzwvdGQ+PHRkIH N3oFwtITUt uGUpCYkjHb6xlTxlxWguFT 5cWQLwgbehRXNqfF4mRENo tMObsHgiOT4mZGBaikpyp6 27MkVkPAC5 XBRvxWJfJ0VjbV1oHeDmAI PkTNFcJ9FndSXuIQuvR112 HPgwDnD1FGWueuHiU7WtNX FsaWduOiB0 s5J2Ic6Kn1DbxekjO9WiiM GqOhLoMjjaKZc8X0ExLdgo dHI+PD77QHMaMQ03UIy1JH I4zSaqRUxi NSUmS4NdiS9dHqNiNUTvQH RkOyc+PHRhYmxlIHdpZHRo ATrbZXWfYrZbjEjqZG1cTu 9yZGVyLWNv vWuvvMNbNaIvk5fdMCApCT zsUS8gvPwsI8HkxSV2TSBb o8c9Jy51L83kF9XfsFJ+PG YmnJH7yJT1 jF0zGeXzTvW6LRfaA644Wh LqtVAnFockh8cvl0pzdJc4 SoK2CIZjgxCutWslNDX7t3 RxNk14D84z IHdpZHRoPSIxNSUiIHZhbG rwbb4vtA4oNm3+PGNvbCB3 eVT6rP6vLsOdSiK1PDzvJ4 49InRvcCIv Htiuo1muf5jvqSq2CkTpFN ZdonQcwSezZRZ9f9PiNz99 S8KsmEayw1KlOrz8fo84lI Dlh1F9gWS7 N7SyHPYxuhkpwCCahPchJX 6lZJHzjakwFMTfwY0iFXLh R7d5PbRcYnM1GSwoN6Lsho P7JJUbvOMm ECZrwDJSzA1txhxys9vagq dqUpXwZDRrYYc8ATb2KXIv zHbiCyIpRZH8FcR7EID6yE RhdN7pgQgt ycjpyJ9hScu+NDG6qGWzaF HIDN5lFvdpbDS+PHRkIHN0 nBojGIgxPIXkqU8fNWAmN8 x0QrStUwZ9 BPegY8EqpqN8VKOedTKdFK HaiSNMrO6ickdhb6eqkbpc JjFfZHYjUAs0XMn9MNUcgS duOiBsZWZ0 KgV0HIR2qBIdvM9hlYoknx wnsB4oLvd+QmlydGggRGF0 GIk7Q5AkEmk6HAMvnEnfXR 0ncGFkZGlu Hk7bpWdysAnqZG0tPQNtvf zgr438HgQfw5hpTPRdpZAo LXzgLQY4A23os3D5RSDuAH HyLPI6xZQ4 aR6opSysmmhldGRtoEwlsh BanKeqEAwoYWtqO748NVCk wWzfYkSrXWn4E5VhIgy4KU MicSzoVS5o dCVkOUorNo4kxTywvJksMV 6kMLJiktcdw317VbOoo8gz UYUaeSOaGOuhAJT6X71jz2 H4YQIgMBAu VAU1fXG0uT4lvLbwdxcmkA VmdDsgdmVydGljYWwtYWxp C058MWJxmNvnErCkuIv6W8 MfFji4SEPn vLwbUZ6ppRTxCYkiBe8qaR zyjEzoAM7oXVZtaedyu584 VjZgh6ayZXGqwRLdDGofVU N7R41by4H0 ZCHdDUSdEVG6aSE2qX4ifX lnbjogbGVmdDsgdmVydGlj KBpiJUkxM223JZUhwLlnSg BhdGllbnQg MOsuCVq0Z7CoEylqkSR+PC 95EAOkIU74iNVwgLZxr9ar rDg9WvUfUIIdYZG0sYfkJI xdy5LyZFEa S45zzAOyk9U9SDTjmHkssV ZoTvKnoDG7rB0rYTfxnprt p7oxwpuxEzjvg5ooyi26qN 19O62gJInj ZHRoPSIzMCUiIHZhbGlnbj 1zxM7kSs3+KLOmdLR8vMD1 tX7hKMMbTqK1GPheT021Eq RvcCIvPjxj v3ezp3xmdGi4DxZ0RCKrml PitJbqPSM2s0DoGc19D93u IHdpZHRoPSIyMCUiIHZhbG hntj0hyR7l Ii8+MQKjsUR5kDH1iI3pTh GsXvB0QSgxB617YkIrwYSm CobdO31hP2VuiMF+PHRyPj l8CYScwRai FT0byXGjFYdtQv0tALJ1Dz AsRmZgVMegT4IvDWQaffgb mupuoKT0WIWlWFQnlD42Gc 9udDogMTBw yRVEeK7frdlzm6jmynxdLq DoGQOgCBh2KLb4DYMacNcm WqAcDAL4QgO0OZO4aLFsmB 1hbGlnbjog nD4bU0CaUFZlsjvbFs00cQ 8iQqXkGdU9VChbSpv+Qkla T2TCXejlFz2CVs0lDTxonE Q+PHRkIHN0 sVhzDDytVZHxgX9hPVTdJ9 i8NhFpWmE7VEanQ3IoDELy pllaQi63sT8oTfNlOhY8OZ dvH5GkraV7 ACZlgWBaIYhtGLY0E59on1 F5ZIOiNCLmDYZ2xST2uJ0t bGlnbjogbGVmdDsgdmVydG ljYWwtYWxp T387MAZkiKluWkA2UvEwQa G9GRS7J3JcCff5LEIamQmz VS1ngNMoNRdkHd5pyEjiyZ bcZM1zGYAq uzdqSMFdqO2nYAVqiNDehK hfJY4pBNUdsqeax793IiFs PLI5BMXhaWDdP0ZvnH7kWe AjMDAwMDAw D0KrfBLeQDrwZ318BXpgBi X6IHGdovGvT8YpRBEkdGgp AsC4h3O2Jc05XtBMPBDqjt wvdGQ+PHRk OBN4dBlbDIieMDIygE4eDP WhC1m4GmLnIzZ2CWouQ0Gr MISmjzbjQp87lW3zVbZaJr Z9QHonL9Wq lhM4BFHphBNjGPvlPRB8S7 7na0C7JHDbOJDuOOK8pSL9 rS7utVswnmvttNDseFdwqw VydGljYWwt SKmiF034PNQqnHugMjMfcX FsZTwvdGQ+VONrPBX2iNge CLalTWDexQ4jJWPrZ9z1Hw RyBzZ6OVek C3WrWHYyqoguUr40xA6jIx VfVuV9AXmsG2IdnwM2TKKq nVTzMTpoFVY2D67gr0K3WA MwMDAwMDA7 jGR5rE3dwAhllqscwRZkaA teddErzOwlRVlbCFfxC048 AKKvhHikDwOedU1eIPDrSQ dlbWVudDwv dGQ+WY14ux86W0CoBwxhFb s0FBItFPH7uSU8nA5aRVQa NKxvz5Q1gCB1E8HjyqYmkq 5ri5pxPRFy ZZjgR62ibVAed5S0YOQcpA L9NUEutIvmJvFdmK19Gka+ YMZdnOomw3NeNgmhb3tai9 dvqMe3DpFi PKSlzgRjgMpwDXL6o1CbNd 82B71mWXjdTSBiOOZqCIMa MWChwTsgvp1pvS8gGq3+PG RjvTZ1pPV8 mN7rAbGbHyV8UUapI969Co TgrENbUxxrk7peh9whzFf0 GeDbIMQkytNlcQurGGE7u3 SdBy72I0Iz xHcfg2IvPpy5yz79wUSca3 A1tWD4G1MyDUBwfiyxoROg hEvyBC5bHKUclxwoOULssP 4xXUYvF2e7 OgRnYnZ2DUtbS9YophP0IE XxnFTdMRGtxVTJjE7seubw u6kqrznsBqXyTQLnEDa6NU l3YRDlrObu UkXwDXP7AyS9MDE4iAHcbJ 3feSxiynuvaP0nDqn+UGh5 r8rshLNaRG7zrNR9QH30TX 00cORpc6Z2 mKV1G7IjOBYthhaorpbnuP M1LIKpKNGnwC05Za6mzCvh Bb1uIEKmKSA2VCAlaFAgK9 YixS5dGaUm TINnRJGnH5HywOMsKOdqO1 00LXwkZeA9ZXCsykLvP1Hp SCMclLhdExU4j5K5Rg3YIW 56FT59WE95 qDYuz7I7cQE1Q1XvZREscz zarkbwnDL2KDRmAMQweQ66 Qu3lxZguOw7aKOVkHUU2FM SazGJpG1Ic kD3mDvQiZNKxMBSnQ4UblJ OfOGocL474WTprNmL5UHYh tfPzO6HfKKDljPxrTmQ3c2 P9Wy6WOy49 MT87MB17cEBzx3D5iZN8U0 LwRRHewbeybuxxnJI1EQKn CENszQ75Ui7tsEhzAo8hOZ GcCFK6LSKw aGGaZ1TsiP3fYdHtHGEpPZ ViE3BhjEDnMOhtU355SBga PtO5NZAzrvRoB9MaYEQlvC lxHeT1m0F4 Or4ZRZmwhpx0N3DpRkgmhP I+HP72MOAyUC02aHOgdTFi y4gugXk3TrHoTCVuRMO1sA efWJvmd7Mp FXTrI10l (more content not included)... Normal [facility] US KIDNEYSon 05-14-2022 US KIDNEYS EXAMINATION: [...] by: SOFIE PATTERSON Date: 2022-05-14 14:20 Normal [facility] Consent for Treatmenton 04-18 Consent for Treatment [id number]#1. 00CD:127 Normal [facility] Legal Correspondence Officeo n 05-09-2022 Legal Correspondence Office [id number]#1. 00CD:127 Normal [facility] Office/Clinic Note-Physician on 05-09-2022 Office/Clinic Note-Physician [id number]#1. 00CD:127 Normal [facility] Patient Correspondenceon Patient Correspondence [id number]#1. 00CD:127 Normal [facility] Patient Correspondence [id number]#1. 00CD:127 Normal [facility] Patient Correspondence [id number]#1. 00CD:127 Normal [facility] Patient History Officeon Patient History Office [id number]#1. 00CD:127 Normal [facility] INSULINon 04-26-2022 Insulin 25.3 uIU/mL Critically high 2.6-24.9 [facility] Comment on above: Performed By: #### I NSULIN ####[facility] [address] [place], [place] [address]YmDr. Marion Bullard CBC AUTO DIFFon 04-25-2022 BASO # 0.1 103/ul Normal 0.0-0.1 [facility] Comment on above: Performed By: #### C BC #### [facility] [address] [place], [place] [address] Dr. Marion Bullard Basophils/100 WBC (Bld) 0.6 % Normal 0.2-2.0 [facility] Comment on above: Performed By: #### C BC #### [facility] [address] [place] [address] [address] Marion Bullard EO # 0.2 103/ul Normal 0.0-0.7 [facility] Comment on above: Performed By: #### C BC #### [facility] [address] [place] [address] [address] Marion Bullard Eosinophils/100 WBC (Bld) 1.1 % Normal 0.9-7.0 [facility] Comment on above: Performed By: #### C BC #### [facility] [address] [place] [address] Dr. Marion Bullard Erythrocyte distribution width (RBC) [Ratio] 12.7 % Normal 11.0-15.0 [facility] Comment on above: Performed By: #### C BC #### [facility] [address] [place] [address] Dr. Marion Bullard Hematocrit (Bld) [Volume fraction] 43.8 % Normal 36.0-48.0 [facility] Comment on above: Performed By: #### C BC #### [facility] [address] [place] [address] Dr. Marion Bulalrd Hemoglobin (Bld) [Mass/Vol] 14.6 g/dL Normal 12.0-16.0 [facility] Comment on above: Performed By: #### C BC #### [facility] [address] [place] [address] [address] Marion Bullard IG # 0.11 10e3/ul Critically high 0.00-0.03 [facility] Comment on above: Performed By: #### C BC #### [facility] [address] [place] [address] Dr. Marion Bullard IG % 0.7 % Critically high 0.0-0.5 [facility] Comment on above: Performed By: #### C BC #### [facility] [address] [place] [address] [address] Marion Bullard LYMPH # 3.1 103/ul Normal 1.2-3.[address] [facility] Comment on above: Performed By: #### C BC #### [facility] [address] [place] [address] Dr. Marion Bullard Lymphocytes/100 WBC (Bld) 19.4 % Critically low 20.5-60.0 [facility] Comment on above: Performed By: #### C BC #### [facility] [address] [place] [address] Dr. Marion Bullard MANUAL DIFF REQ NO Normal [facility] Comment on above: Performed By: #### C BC #### [facility] [address] [place] [address] Dr. Marion Bullard MCH (RBC) [Entitic mass] 29.9 pg Normal 26.7-34.[address] [facility] Comment on above: Performed By: #### C BC #### [facility] [address] [place] [address] Dr. Marion Bullard MCHC (RBC) [Mass/Vol] 33.3 g/dL Normal 29.9-35.[address] [facility] Comment on above: Performed By: #### C BC #### [facility] [address] [place] [address] Dr. Marion Bullard MCV (RBC) [Entitic vol] 89.8 fL Normal 81.0-99.0 [facility] Comment on above: Performed By: #### C BC #### [facility] [address] [place] [address] Dr. Marion Bullard MONO # 1.3 103/ul Critically high 0.3-0.8 [facility] Comment on above: Performed By: #### C BC #### [facility] [address] [place] [address] Dr. Marion Bullard Monocytes/100 WBC (Bld) 8.1 % Normal 1.7-12.[address] [facility] Comment on above: Performed By: #### C BC #### [facility] [address] [place] [address] Dr. Marion Bullard NEUT # 11.3 103/ul Critically high 1.4-6.5 [facility] Comment on above: Performed By: #### C BC #### [facility] [address] [place], [place] [address] Dr. Marion Bullard Neutrophils/100 WBC (Bld) 70.1 % Normal 43.0-75.0 [facility] Comment on above: Performed By: #### C BC #### [facility] [address] [place] [address] [address] Marion Bullard Platelet mean volume (Bld) [Entitic vol] 8.5 fL Critically low 9.5-13.[address] [facility] Comment on above: Performed By: #### C BC #### [facility] [address] [place] [address] [address] Marion Bullard PLT 488 103/ul Critically high 150-450 [facility] Comment on above: Performed By: #### C BC #### [facility] [address] [place] [address] [address] Marion Bullard RBC 4.88 106/ul Normal 4.20-5.[address] [facility] Comment on above: Performed By: #### C BC #### [facility] [address] [place] [address] [address] Marion Bullard WBC 16.1 103/ul Critically high 4.0-11.0 [facility] Comment on above: Performed By: #### C BC #### [facility] [address] [place] [address] [address] Marion Bullard FREE THYROXINE INDEX T7on FTI 2.69 Normal 1.30-4.[address] [facility] Comment on above: Performed By: #### L IPID, CMP, T7, TSH ####[facility] [address] [place], [place] [address]UeSolitario Bullard T3U 34.0 % Normal 30.0-39.[address] [facility] Comment on above: Performed By: #### L IPID, CMP, T7, TSH ####[facility] [address] [place], [place] [address]HtDr. Marion Bullard T4 [Mass/Vol] 7.90 ug/dL Normal 4.80-13.90 [facility] Comment on above: Performed By: #### L IPID, CMP, T7, TSH ####[facility] [address] [place], [place] [address]BrSolitario Bullard GLYCOHEMOGLOBIN A1Con 2022 ADA RECOMMENDATION SEE BELOW Normal [facility] Comment on above: Result Comment: ADA RECOMMENDED LIMIT 4.0 - 6.0 ADA THERAPEUTIC TARGET < 7.0 ACTION SUGGESTED > 7.0 Performed By: #### A 1C ####[facility] [address] [place] [id number][address] Marion Bullard Glucose [Mass/Vol] 120 mg/dL Normal [facility] Comment on above: Performed By: #### A 1C ####[facility] [address] [place] [address]DrSolitario Bullard HbA1c (Bld) [Mass fraction] 5.8 % Normal 4.5-6.2 [facility] Comment on above: Performed By: #### A 1C ####[facility] [address] [place] [address]Dr. Marion Bullard IRONon 04-25-2022 Iron [Mass/Vol] 94.0 ug/dL Normal 50.0-170.0 [facility] Comment on above: Performed By: #### I NANCY #### [facility] [address] [place] [address] [address] Marion Bullard LIPID PROFILEon 04-25-2022 CHOL-HDL RATIO NORM SEE BELOW Normal [facility] Comment on above: Result Comment: 3.3 - 4.4 LOW RISK 4.4 - 7.1 AVERAGE RISK 7.1 - 11.0 MODERATE RISK >11.0 HIGH RISK Performed By: #### L IPID, CMP, T7, TSH #### [facility] [address] [place] [address] [address] Marion Bullard Cholesterol [Mass/Vol] 193 mg/dL Normal <=[address] [facility] Comment on above: Performed By: #### L IPID, CMP, T7, TSH #### [facility] [address] [place] [address] [address] Marion Bullard Cholesterol in HDL [Mass/Vol] 49 mg/dL Normal 40-60 [facility] Comment on above: Performed By: #### L IPID, CMP, T7, TSH #### [facility] [address] [place] [address] [address] Marion Bullard Cholesterol in LDL [Mass/Vol] 122.4 mg/dL Normal [facility] Comment on above: Performed By: #### L IPID, CMP, T7, TSH #### [facility] [address] [place] [address] [address] Marion Bullard Cholesterol.total/Ch olesterol in HDL [Mass ratio] 3.9 {ratio} Normal [facility] Comment on above: Performed By: #### L IPID, CMP, T7, TSH #### [facility] [address] [place] [address] [address] Marion Bullard HDL NORMAL > or = 60 mg/dl - LO W CARDIOVASCULAR RISK <40 mg/dl - HIGH CARDIOVASCULAR RISK Normal [facility] Comment on above: Performed By: #### L IPID, CMP, T7, TSH #### [facility] [address] [place] [address] [address] Marion Bullard LDL CALC NORMAL SEE BELOW Normal [facility] Comment on above: Result Comment: <100 mg/dl OPTIMAL 100 - 129 mg/dl NEAR OR ABOVE OPTIMAL 130 - 159 mg/dl BORDERLINE HIGH 160 - 189 mg/dl HIGH >190 mg/dl VERY HIGH Performed By: #### L IPID, CMP, T7, TSH #### [facility] [address] [place] [address] [address] Marion Bulalrd Triglyceride [Mass/Vol] 108 mg/dL Normal <=150 [facility] Comment on above: Performed By: #### L IPID, CMP, T7, TSH #### [facility] [address] [place] [address] [address] Marion Bullard VLDL CALC 21.6 mg/dL Normal [facility] Comment on above: Performed By: #### L IPID, CMP, T7, TSH #### [facility] [address] [address] [address] Marion Bullard PROF 14(COMP METB)on 03-09-2 023 Albumin [Mass/Vol] 3.4 g/dL Normal 3.4-5.0 [facility] Comment on above: Performed By: #### L IPID, CMP, T7, TSH #### [facility] [address] [address] [address] Marion Bullard Albumin/Globulin [Mass ratio] 0.9 {ratio} Normal [facility] Comment on above: Performed By: #### L IPID, CMP, T7, TSH #### [facility] [address] [address] [address] Marion Bullard ALP [Catalytic activity/Vol] 93 U/L Normal 46-116 [facility] Comment on above: Performed By: #### L IPID, CMP, T7, TSH #### [facility] [address] [place] [address] Dr. Marion Bullard ALT [Catalytic activity/Vol] 26 U/L Normal 14-59 [facility] Comment on above: Performed By: #### L IPID, CMP, T7, TSH #### [facility] [address] [place] [address] Dr. Marion Bullard Anion gap [Moles/Vol] 12.7 mmol/L Normal [facility] Comment on above: Performed By: #### L IPID, CMP, T7, TSH #### [facility] [address] [place] [address] Dr. Marion Bullard AST [Catalytic activity/Vol] 21 U/L Normal 15-37 [facility] Comment on above: Performed By: #### L IPID, CMP, T7, TSH #### [facility] [address] [place] [address] Dr. Marion Bullard Bilirubin [Mass/Vol] 0.5 mg/dL Normal 0.2-1.0 [facility] Comment on above: Performed By: #### L IPID, CMP, T7, TSH #### [facility] [address] [place] [address] Dr. Marion Bullard Calcium [Mass/Vol] 9.1 mg/dL Normal 8.5-10.1 [facility] Comment on above: Performed By: #### L IPID, CMP, T7, TSH #### [facility] [address] [address] [address] Marion Bullard Chloride [Moles/Vol] 104 mmol/L Normal 98-107 [facility] Comment on above: Performed By: #### L IPID, CMP, T7, TSH #### [facility] [address] [place] [address] Dr. Marion Bullard CO2 [Moles/Vol] 29.2 mmol/L Normal 21.0-32.0 [facility] Comment on above: Performed By: #### L IPID, CMP, T7, TSH #### [facility] [address] [place] [address] Dr. Marion Bullard Creatinine [Mass/Vol] 0.68 mg/dL Normal 0.55-1.02 [facility] Comment on above: Performed By: #### L IPID, CMP, T7, TSH #### [facility] [address] [place] [address] Dr. Marion Bullard EGFR-AF ENGLISH >60 Normal >=60 [facility] Comment on above: Performed By: #### L IPID, CMP, T7, TSH #### [facility] [address] [place] [address] Dr. Marion Bullard EGFR-NON AF ENGLISH >60 Normal >=60 [facility] Comment on above: Performed By: #### L IPID, CMP, T7, TSH #### [facility] [address] [place] [address] Dr. Marion Bullard Globulin (S) [Mass/Vol] 3.9 g/dL Normal [facility] Comment on above: Performed By: #### L IPID, CMP, T7, TSH #### [facility] [address] [place] [address] Dr. Marion Bullard Glucose [Mass/Vol] 103 mg/dL Normal 74-106 [facility] Comment on above: Performed By: #### L IPID, CMP, T7, TSH #### [facility] [address] [place] [address] Dr. Marion Bullard Potassium [Moles/Vol] 3.9 mmol/L Normal 3.5-5.[address] [facility] Comment on above: Performed By: #### L IPID, CMP, T7, TSH #### [facility] [address] [place] [address] Dr. Marion Bullard Protein [Mass/Vol] 7.3 g/dL Normal 6.4-8.2 [facility] Comment on above: Performed By: #### L IPID, CMP, T7, TSH #### [facility] [address] [place] [address] Dr. Marion Bullard Sodium [Moles/Vol] 142 mmol/L Normal 136-145 [facility] Comment on above: Performed By: #### L IPID, CMP, T7, TSH #### [facility] [address] [place] [address] Dr. Marion Bullard Urea nitrogen [Mass/Vol] 13.0 mg/dL Normal 7.0-18.[address] [facility] Comment on above: Performed By: #### L IPID, CMP, T7, TSH #### [facility] [address] [place] [address] Dr. Marion Bullard Urea nitrogen/Creatinine [Mass ratio] 19.1 mg/mg Normal [facility] Comment on above: Performed By: #### L IPID, CMP, T7, TSH #### [facility] [address] [place] [address] Dr. Marion Bullard PROTIMEon 04-25-2022 INR Coag (PPP) [Relative time] 0.95 {INR} Normal [facility] Comment on above: Performed By: #### P TT, PT #### [facility] [address] [place] [address] Dr. Marion Bullard INR GUIDELINES SEE BELOW Normal [facility] Comment on above: Result Comment: YARELI RED INR: 2.0 - 3.0 CONDITIONS NOT LISTED BELOW 2.5 - 3.5 FOR PROSTHETIC HEART VALVE REPLACEMENT 2.5 - 3.5 RECURRENT THROMBOSIS Performed By: #### P TT, PT #### [facility] [address] [place] [address] Dr. Marion Bullard PT Coag (PPP) [Time] 10.1 s Normal 9.0-11.6 [facility] Comment on above: Performed By: #### P TT, PT #### [facility] [address], [place] [address] Dr. Marion Bullard PTTon 04-25-2022 aPTT Coag (Bld) [Time] 27.3 s Normal 22.3-36.2 [facility] Comment on above: Performed By: #### P TT, PT #### [facility] [address], [place] [address] Dr. Marion Bullard TSHon 04-25-2022 TSH 3.782 uIU/mL Critically high 0.358-3.740 [facility] Comment on above: Performed By: #### L IPID, CMP, T7, TSH #### [facility] [address], [place] [address] Dr. Marion Bullard XR HAND LT MIN [...] by: JANNA SON Date: 2022-03-29 16:06 Normal [facility] Coding Summary.on 03-21-2022 Coding Summary. [id number] Gh 0bWw+PGhlYWQ+SG9BWPFcU 71ipNJljY0KB1vVNI3ZZOR VIFVJII2LKK3bdZS6JGpeK 2VybiAv ZbgzgKFbXP56YSn5BHA8rO viYVveyY4umZGgL6a9ZiIz TD58zA33IZqlBIDwQoK3Fd ZpbjsgbWFy E4clVcSjeAPePfu+PHRhYm xlIHdpZHRoPScxMDAlJyBz yStoAJ3gRm4tRFIrVVCybE xhcHNlOiBj q3wzFTRzOKkzMY6ljVdiO0 IpnZB6TWCdm4n2Im49cLM+ AUUmJOD6qKlwSLdvg971Qz Yzo3ijLHG4 vALdUTnhUPC5S39mc9Q7DA ZsNGGrLZU9lDL2uI9jlClr ztioI2LldSIePkN1XEN1dS NljC7ssVmc nljteS1gUxw+O96NHN9DSB SDMS9EZby4N5VoEjrspSG+ YX31FDUrCU06hIUwlIGcy6 gduZx5DuUo UNAyXWQ6xEytUMxhq8OrOJ XqC78yeRScu7G9VRCeqDkr oGLsQgWbmGD0fV9hBGgzix iud9uxlggx Jktdf6wwtk50sZ26V62wDV beFALbAQF1OZPwKTHvtSxi aq8bvP2wGt9+HRkas5pro0 yqtIh9UqIf ENByfxLqbYzePNP9r3KzEb 27A1FadWtil8VeKuj1ws15 oZZpw8J8eEO4PZtqCXLtrS 7wAGhwLfE4 PCZbWbLesI62fFGiZPlqJd 2szStcgXekPJ8oMOQibsve MTOocG3zCGZrcYDouMbsRS 4wNTBpbjtm s640HoAfCDU9LMOmmUPxP0 HwuS0mMjQsKFOhJDXcC7Wu yWReOXzqR426QVycSwY8ZX VauaXkN3Vi TRRxbDruOmW1o7X0Ab4Gs5 LrttqlDRY2QRnmLBVnCwUh BxCfZnI3X1JkLfn4ISUzdA hjCZ5hZ5Jo YWMdojoduofvaJW6PRMqXL UriV01sEYhQItgBc4tk9K7 h881MBIoGZNioK65Ah1bfW ogMTBwdCBU eF0dsznna2dgxznaWjTrFN FuQXk4BZy0GXXpeWuoHdGu BQZ7SzG7TPQ7kCPvyS3wyA cjcothjF3t Oyc+P89aiM6bXGB0VDQ9cm idNOYawxIaBZ70NY34A1Pz PjwvdGFibGU+PGRpdiBzdH vzXV7hIvVx w6skz6SnERorW3EaJNMkPD pzQlz1XWZiEUI5hHB1tU3u QJRkOHkbu2I1qQV6P8Ujnp Clhz7pm6rx SDDoWHydE95vdWCgc6B4HX AvdGC6JDPclKrmRzKamU34 Oyc+JKZhaBsgd4KvKknja4 rgl8aveTv2 GmQiFDUxdiRarXyxNVO2r6 XuBi68C96vHLgwCYHmYFEx WDIuZZSshBnbym7ymW8xAi 8+PGNvbCB3 oMB6tB4iKDIqVtZ2QAmtS4 18AyLjjMMiUfnnw1trc5nj dVl6YxWnHMLorvAutZygQT A1f9VdUq03 I44wEGbnWYKrUZQhXXDkPM UdtXcqbp2kvJ8hTj7+PC9j y5mthw32rK78rCM+PHRkIH E1wFqsBKuo BCFvwY2fMQrxUnY9JPDqMw MegY76wUShLYrlUv1eyMsp bEemHN7fBKZgahdab570Xm Jeg5woSYYp gNGgMOswRTP4U72it2E2QT LoSRRnERJ2gII5oL0tqDer bjogbGVmdDsgdmVydGljYW qeURxvF235 IHRvcDsnPlBhdGllbnQgTm KrYZu5X8EcCon1QGGcbHfs BO9trCOxWVbfMx6jiXiniM wpRR5aYRDz mhrex020BeOmw4ktPMSitE RkDSorXBS3C95zn3X2LHOv OPHrLUM6kIQ7yB0tlChntr ogbGVmdDsg fqLcyMixGWgpYFphO633OZ RvcDsnPkJpcnRoIERhdGU6 SN83LL39aFMzk5E1nJJ3O8 BhZGRpbmct oretoPC9FVMoCCKfwJ20Iw 2rrSirZv0rESPuIWN5SLNc jNXlQ5JahD2zRaZoXZEjCG GkI8JqvXUy GChyZ155QXnuKgH4XSPfak AuM9AkASZuxCshGpF1r6L9 Fc0QG6R7AH41IJ22eDCog6 C7jSB9N5Ja PUWownuohtuavGV3TGVrEC SrlE87Dw3oyElkDj9xUUAu VVZ3RJBigGZsE8EvpR0rUd AjMDAwMDAw E2TitHMdDGavC629MPzfMx V5JZIitlWkF4MaXVCnvYkv FyR7x3H4Dy5SFDf3HF97YA 03bLMcs2X0 uRX4K4YoMFHekkexsiytjM E7DYUxGMFfnS01Ia5uhZpi Tf7fRVTdXYW4DUJaqHTkH0 MzmP8qOvFh JHVyKVVrH5ByaWXdFRmvU9 33DYcjZxV7LLLgwgFxP6Ff VPLofThlAcV3y9J9Si2GJD HeWT48TUA1 hJX6UU93HZ48G6NfHgximB FibGU+PHRhYmxlIHdpZHRo JBtyEEOgNfStgGnxVD0wWe 9yZGVyLWNv gKybaWKdEzWcg3ofOZZlRN hsNV2zmSxcH1UkaTA9AIDe w2j2Pr75Z59bR4UbrNJ+PG PaaBI2jLD1 bF7aVwUzPvG6KBhlZ310Vc DcfYOkFdzev1uom4eoqQs9 SrV6WXXiesXkhFezERI7q6 ReAy94W12s IHdpZHRoPSIxNSUiIHZhbG uohx7spZ8mMv0+PGNvbCB3 xUV5uK8wGyTfCwQ9ZHbvY0 49InRvcCIv Gcxdo9dxp7pkpPo8YdOgRD LqpkOxmKbyZLB4e9VcRd06 E0HbeKjpm6XiJow8cn57bF Mbl0B0dXI6 R1XwYHGnxbqjoXXfwEamXK 2bMMMmexbnBPHngA2rGIUw D1c8LnTvAvR3RFbmG1Oshu X1PFJqpGKk KHfiYZH1E76hz0U8TUXsYU QiUXE0xIH8tB4pyMpgghdt bGVmdDsgdmVydGljYWwtYW kvC063POWl lFkxTOOioY2tVSVezUEtlE plQF0vESDcmvhmYyJORx0V WGmwBDaMKX8KVD01J4BgYa l1WEXxpVye NB8wlFFhOIdhLv9teRnhuG alVN6xQULoznniISBcaO2o IUUlnHDfeUcfBD5fCAKdsj omi101HpKf RTB1ALJjfXIaO8NapQ7yOq ZsBSRlLWUaN5FvtORxZNmf Z283PLysKtW5FJWmndRaX9 FsLWFsaWdu KaT2h8P6Sx1iFA1jIv1fZS Y2HP84QE79qYCes2M1iOV8 N2CdMIHtjcckzsqhiFX8GE DoJQRvaG23 sLIoATchLc4eq9R0y320JQ XvABGzdS87Fg5loYhfHYDa wJABqT9plbrez0jnmkhvDi AwMDAwMDt0 WBt0OECniVdbMrLhPYP2Em L3AVX6zJJqbL4xbKcradxx sN3qJlv+MvTaCKJkdyA8V2 GjEdh6FYUq eHtfSO1uhVMnITzoUh8tpC kgtOrwMZ5eFZHkxckoZTLi oZ5tAGVptKAaeCfoCL5zDQ Vasbbsj804 ZaInCIX2CEPdeYYzZ9GamM 2wSiKzZYZdEUPjI8ZffMVk QUmyY046EEoqHzA9NDKgss OkB0ZtKGPz hBgoIcT5x8V2Zn2HFV2yuV Q3L1HwVwo5PSNxsZtdDC6x mWEuEQevYf0gtNvvhHvmZR 4wNTBpbjtw PYVenM1fOGHtsJAutWzbBC 4gOJJtzxfyu565VsAgJSW3 GMMjrNScV1CumN4cYjGoJR GnAXMiN4Mw dECxJZpeU473TDlcYlE2DC CzyfHtF0YpQDNueIroNzB3 b9Q9Dr9NGVjkLZ5sxnLuXN 3hnpN9V7Rh PjwvdHI+GE94OQSaHP62vH DktWYus9bstLh6DrEtUYMs LCP2xXelFMrbz2OsQLExD8 7jgBGhq5Z2 GPOdmPlvzXEmYfZzrPR0gT 9yCGixxoagh9xvshwwPwoo v6yrfr82jB95R02gRMzgVY RoPSIzMCUi QJWhzBuhef5nlH1fZr0+PG PwuHL4qQR5kJ8vSaTgKqG2 WOlfV427WbCxqJDiMqghx5 ntt8qerXz7 LwUxMBBpuaUgrVskBPB8i3 WxCs04B15xSFjkUANtBYEd QMDbSCLnwUmqmn1akB8iMq 8+CN0lu7ig kj88mX04rRZ+UPXzYJK3wS wkTAopUFBgzJ9sFVjfSrX4 STOuNdGpcT22lBGiGFqxIj 1yaWdodDog AY1kODQuzfsyi806HbNkr3 rlGWZylFUvDWiiKXB0W14x i2S4FYUiINWlIWE1mRD1nW 1hbGlnbjog bGVmdDsgdmVydGljYWwtYW zbI140TPUjcGzsMaBmiOQc Y3saqbNWYE7oQbcycHG+PH FdBWI3dZgu JWeuPHOhiD1vBLWbU8z4Qz MuEyO7FLnsJ6LlrzT0CVRk pJFaXKKbjBLElU9fjddiu4 xvcjogIzAw GUGvLKs7DPa2URXpkFigUt UoWBX5BgQ4UJC3yFAacA4q pAnznntcdP3zIwt+RklOOj wvdGQ+PHRk IRU3qWviEGpiIQIkwA5xXO QlW0r4NpQqLwL7DVxxC2Mv dpN9GMVfcOBmFPXbySURnK 7yldhbh8ki kghnYfLsNCPgLBx3QYc6KN TwzQarMuJmDTT7WvM2MLI4 mOMrzV0wfFggxpxktE0dFh c+TVJOOjwv dGQ+JYOwYNW5tPkuPRyePW YghI8aLUEkA2i2XoMpBaG3 ABqeI0RqepZ2CTYorRCjDN EevQDFkG1u nesdu2taiguxUoIsDIFcGT b8WSs2SWUpcPmrIjFjUOZ2 LrB2QPY5eYCprE4izHmlhm xdhI8uGrd+ BQH1XCC6QP71QD19E7QhVo wvdGFibGU+PHRhYmxlIHdp ZHRoPScxMDAlJyBzdHlsZT 2oPy0eNAOi LWNv (more content not included)... [facility] Consent for Procedure/Surger yon 03-20-2022 Consent for Procedure/Surgery [id number]#1.0 0CD:127 [facility] Consent for Treatmenton Consent for Treatment [id number]#1. 00CD:127 [facility] Discharge Instructionson Discharge Instructions [id number]#1.0 0CD:127 [facility] IntraOperative Documentson 0 03-20-2022 IntraOperative Documents [id number]#1.0 0CD:127 [facility] IntraOperative Documents [id number]#1.0 0CD:127 [facility] Main OR Intraoperative Recor don 03-20-2022 Main OR Intraoperative Record IntraOp Document Type FTPM Summary Primary Physician: Gerald Pham MD Finalized Date/Time: 03/20/22 13:43:47 Pt. Name: SHELLY HUMPHREYS/Sex: 1955 Female Med Rec #: [id number] Physician: Gerald Pham MD Financial #: [id number] Pt. Type: P Room/Bed: / Admit/Disch: 03/20/22 [...] RN, Ananya Role Performed Surgeon - Primary Graduate Rn - Primary Scrub - Primary Time In 03/20/22 13:34:00 03/20/22 13:34:00 03/20/22 13:34:00 Time Out 03/20/22 13:43:00 03/20/22 13:43:00 03/20/22 13:43:00 Procedure LUMBAR EPIDURAL STEROID LUMBAR EPIDURAL STEROID LUMBAR EPIDURAL STEROID INJECTION(.) INJECTION(.) INJECTION(.) Comments Last Modified By: Mary ROSE, Addis Hernandez RN, Addis Hernandez RN, Addis Perez 03/20/22 13:43:41 03/20/22 13:43:41 03/20/22 13:43:41 Entry 4 Entry 5 Case Attendee Mary ROSE, Ronak Rodriguez Role Performed Staff - Other Toll Line Inspector Time In 03/20/22 13:34:00 03/20/22 13:34:00 Time Out 03/20/22 13:43:00 03/20/22 13:43:00 Procedure LUMBAR EPIDURAL STEROID LUMBAR EPIDURAL STEROID INJECTION(.) INJECTION(.) Comments Last Modified By: Mary ROSE, Addis Hernandez RN, Addis Perez 03/20/22 13:43:41 03/20/22 13:43:41 Perioperative Protocols FTPM [...] Given Participants Williams ROSE, Ankit Hare MD, Mary Duarte RN, Jason [...] and tissue Entry 1 Skin Integrity Intact, [place], Warm, and Skin Abnormality No Dry Outcomes [...] Extended Posit (more content not included)... Normal [facility] Main OR Preoperative Recordo n 03-20-2022 Main OR Preoperative Record Holding Area Document Type FTPM Summary Primary Physician: Gerald Pham MD Finalized Date/Time: 03/20/22 13:30:04 Pt. Name: SHELLY HUMPHREYS Rei Gamboa/Sex: 1955 Female Med Rec #: [id number] Physician: Gerald Pham MD Financial #: [id number] Pt. Type: P Room/Bed: / Admit/Disch: 03/20/22 [...] Signed By: Brittnee Blackburn RN 03/20/22 13:30 [facility] Operative Reporton Operative Report SURGERY DATE: [...] condition. Gerald Pham M.D. lr Dictated: 03/20/2022 [id number] Transcribed: 03/20/2022 [facility] Comment on above: Result Comment: Elec tronically Signed By: Ankit HUDSON, Gerald\.br\Date and Time Signed: 03/20/22 16:39 EST Patient Correspondenceon Patient Correspondence [id number]#1.0 0CD:127 Normal [facility] Vital Signs Date Time Vital Sign Value Performing Clinician Facility 02-21-2023 [id number] Diastolic blood pressure 101 mm[Hg] Nyasia TIKI.VN [facility] 02-21-2023 15:11-0500 Heart rate 74 /min Nyasia Helton [facility] 02-21-2023 15:11-0500 Mean blood pressure 116 mm[Hg] Nyasia Helton [facility] 02-21-2023 15:11-0500 Respiratory rate 18 /min Nyasia Helton [facility] 02-21-2023 15:11-0500 Systolic blood pressure 147 mm[Hg] Nyasiataras Helton [facility] 01-20-2023 13:49-0500 Heart rate 81 /min Barry Neeraj [facility] 01-20-2023 13:49-0500 SaO2% (BldA) [Mass fraction] 98 % Barry Neeraj [facility] 01-20-2023 13:49-0500 Diastolic blood pressure 84 mm[Hg] Barry Neeraj [facility] 01-20-2023 13:49-0500 Mean blood pressure 109 mm[Hg] Barry Neeraj [facility] 01-20-2023 13:49-0500 Systolic blood pressure 160 mm[Hg] Barry Neeraj [facility] 01-20-2023 13:49-0500 Respiratory rate 16 /min Barry Neeraj [facility] 01-20-2023 13:43-0500 Diastolic blood pressure 94 mm[Hg] Barry Neeraj [facility] 01-20-2023 13:43-0500 Heart rate 76 /min Barry Neeraj [facility] 01-20-2023 13:43-0500 SaO2% (BldA) [Mass fraction] 98 % Barry Neeraj [facility] 01-20-2023 13:43-0500 Systolic blood pressure 159 mm[Hg] Barry Pickard [facility] 01-20-2023 13:35-0500 Heart rate 87 /min Barry Pickard [facility] 01-20-2023 13:35-0500 SaO2% (BldA) [Mass fraction] 98 % Barry Pickard [facility] 01-20-2023 13:35-0500 Diastolic blood pressure 77 mm[Hg] Barry Pickard [facility] 01-20-2023 13:35-0500 Mean blood pressure 98 mm[Hg] Barry Pickard [facility] 01-20-2023 13:35-0500 Systolic blood pressure 140 mm[Hg] Barry Pickard [facility] 01-20-2023 13:33-0500 Respiratory rate 14 /min Barry Pickard [facility] 06-24-2022 13:44-0400 Body temperature 98.49 [degF] John Liz MD Work Phone: [facility] 06-24-2022 13:44-0400 Body weight 93.44 kg John Liz MD Work Phone: [facility] 05-09-2022 14:51-0400 Diastolic blood pressure 79 mm[Hg] Gerald Zumbar [facility] 05-09-2022 14:51-0400 Heart rate 90 /min Gerald Zumbar [facility] 05-09-2022 14:51-0400 Mean blood pressure 94 mm[Hg] Gerald Zumbar [facility] 05-09-2022 14:51-0400 Respiratory rate 16 /min Gerald Zumbar [facility] 05-09-2022 14:51-0400 Systolic blood pressure 125 mm[Hg] Gerald Zumbar [facility] 03-20-2022 13:46-0500 Diastolic blood pressure 65 mm[Hg] Gerald Zumbar [facility] 03-20-2022 13:46-0500 Heart rate 89 /min Gerald Zumbar [facility] 03-20-2022 13:46-0500 Mean blood pressure 85 mm[Hg] Gerald Zumbar [facility] 03-20-2022 13:46-0500 Systolic blood pressure 124 mm[Hg] Gerald Zumbar [facility] 03-20-2022 13:37-0500 Diastolic blood pressure 107 mm[Hg] Gerald Zumbar [facility] 03-20-2022 13:37-0500 Heart rate 80 /min Gerald Zumbar [facility] 03-20-2022 13:37-0500 Respiratory rate 14 /min Gerald Zumbar [facility] 03-20-2022 13:37-0500 SaO2% (BldA) [Mass fraction] 98 % Gerald Zumbar [facility] 03-20-2022 13:37-0500 Systolic blood pressure 144 mm[Hg] Gerald Zumbar [facility] 03-20-2022 13:23-0500 Heart rate 82 /min Gerald Zumbar [facility] 03-20-2022 13:23-0500 SaO2% (BldA) [Mass fraction] 96 % Gerald Zumbar [facility] 03-20-2022 13:23-0500 Diastolic blood pressure 85 mm[Hg] Gerald Zumbar [facility] 03-20-2022 13:23-0500 Mean blood pressure 107 mm[Hg] Gerald Zumbar [facility] 03-20-2022 13:23-0500 Systolic blood pressure 149 mm[Hg] Gerald Zumbar [facility] 03-20-2022 13:23-0500 Body temperature 98.06 [degF] Gerald Zumbar [facility] 03-20-2022 13:22-0500 Respiratory rate 12 /min Gerald Zumbar [facility] 01-23-2022 09:24-0500 Diastolic blood pressure 81 mm[Hg] Gerald Zumbar [facility] 01-23-2022 09:24-0500 Heart rate 81 /min Gerald Zumbar [facility] 01-23-2022 09:24-0500 Mean blood pressure 100 mm[Hg] Gerald Zumbar [facility] 01-23-2022 09:24-0500 Respiratory rate 12 /min Gerald Zumbar [facility] 01-23-2022 09:24-0500 Systolic blood pressure 137 mm[Hg] Gerald Zumbar [facility] 11-20-2021 07:59-0400 Diastolic blood pressure 94 mm[Hg] Cezar Coe [facility] 11-20-2021 07:59-0400 Heart rate 76 /min Cezar Coe [facility] 11-20-2021 07:59-0400 Mean blood pressure 115 mm[Hg] Cezar Coe [facility] 11-20-2021 07:59-0400 Systolic blood pressure 158 mm[Hg] Cezar Coe [facility] 11-15-2021 14:24-0400 Diastolic blood pressure 89 mm[Hg] Gerald Zumbar [facility] 11-15-2021 14:24-0400 Heart rate 83 /min Gerald Zumbar [facility] 11-15-2021 14:24-0400 Mean blood pressure 108 mm[Hg] Gerald Zumbar [facility] 11-15-2021 14:24-0400 Respiratory rate 12 /min Gerald Zumbar [facility] 11-15-2021 14:24-0400 Systolic blood pressure 145 mm[Hg] Gerald Zumbar [facility] Encounters Encounter Date Encounter Type Care Provider Facility Start: 03-10-2023 End: 03-10-2023 ambulatory ADÁN LALA Facility:[facility] Start: 02-21-2023 End: 02-22-2023 ambulatory Nyasia Hel[place] Start: 02-21-2023 End: 02-21-2023 Pain Management Nyasia Helton [facility] Start: 01-22-2023 End: 01-22-2023 ambulatory ADÁN LALA Facility:[facility] Start: 01-22-2023 End: 01-22-2023 Patient encounter procedure John Liz MD Work Phone: Rheumatology Comment on above: Seropositive rheumat oid arthritis (HCC) (Primary Dx); Medication monitoring encounter Start: 01-20-2023 End: 01-21-2023 ambulatory Barry Pickard [place] Start: 01-20-2023 End: 01-20-2023 Pain Management Barry Pickard [facility] Start: 01-17-2023 End: 01-17-2023 ambulatory ADÁN LALA Facility:[facility] Start: 12-12-2022 Refill John Liz MD [...] End: 09-25-2022 ambulatory JOHN MODEL Facility:[facility] Start: 09-25-2022 End: 09-25-2022 Patient encounter procedure John Liz MD Work Phone: Rheumatology Comment on above: Seropositive rheumat oid arthritis (HCC) (Primary Dx); Medication monitoring encounter Start: 08-06-2022 End: 08-06-2022 ambulatory JOHN MODEL Facility:[facility] Start: 06-27-2022 End: 06-28-2022 ambulatory YANNA MILLER Facility:[facility] Start: 06-27-2022 End: 06-27-2022 Patient encounter procedure Yanna Milelr MD Work Phone: Dermatology Comment on above: Psoriasis (Primary D x); Intertrigo Start: 06-26-2022 Telephone encounter John Liz MD Work Phone: Rheumatology Comment on above: Results Start: 06-26-2022 End: 06-27-2022 ambulatory MD Gerald Pham [place] [place]: 06-24-2022 End: 06-24-2022 ambulatory JOHN LIZ Facility:[facility] Start: 06-24-2022 End: 06-24-2022 Patient encounter procedure John Liz MD Work Phone: Rheumatology Comment on above: Bilateral hand swell ing (Primary Dx); Psoriasis Start: 06-19-2022 End: 06-20-[address] ADÁN LALA . Facility: Start: 05-30-2022 End: 05-31-2022 ambulatory Gerald Pham [place] Start: 05-30-2022 End: 05-30-2022 Patient encounter procedure Gerald Pham [facility] Start: 05-14-2022 End: 05-15-[address] ADÁN LALA . Facility: Start: 05-09-2022 End: 05-10-2022 ambulatory Gerald Pham [place] Start: 05-09-2022 End: 05-09-2022 Pain Management Gerald Pham [facility] Start: 04-25-2022 End: 04-26-[address] ADÁN LALA . Facility: Start: 03-29-2022 End: 03-30-[address] ADÁN LALA . Facility: Start: 03-20-2022 End: 03-21-2022 ambulatory Gerald Pham [place] Start: 03-20-2022 End: 03-20-2022 Pain Management Gerald Pham [facility] Start: 01-23-2022 End: 01-23-2022 Pain Management Gerald Arangoumbcathleen [facility] Start: 11-20-2021 End: 11-20-2021 Patient encounter procedure Cezar Coe [facility] Start: 11-15-2021 End: 11-15-2021 Pain Management Gerald Pham [facility] Procedures Date Procedure Procedure Detail Performing Clinician Start: 01-20-2023 Injection of nerve r oot of lumbar spine using fluoroscopic guidance Nyasia Helton Comment on above: 02/21/2023 15:13 SHARMIN Fisher RN, Janay Minaya 85% x2 weeks, now 0% Start: 05-09-2022 Epidural injection o f thoracic spine using fluoroscopic guidance Gerald Lateshacathleen Comment on above: [id number] SANJAY- no relief [...] DTaP,Tdap,Td Vaccine (2 - Td or Tdap) [facility] Start: 01-17-2026 Diabetes Screening [facility] Start: 09-25-2025 DIABETES SCREEN DIABETES SCREEN [facility] Start: 09-25-2025 Diabetes Screening Diabetes [facility] Start: 08-06-2025 DIABETES SCREEN DIABETES SCREEN [facility] Start: 06-24-2025 DIABETES SCREEN DIABETES SCREEN [facility] Start: 04-23-2023 End: 01-23-2024 CBC W Auto Differential panel - Blood CBC + DIFF Lab Routine Seropositive rheumatoid arthritis (HCC) Medication monitoring encounter Expected: 04/23/2023, Expires: 01/23/2024 [facility] Work Phone: Comment on above: Expected: 04/23/2023 , Expires: 01/23/2024 Start: 04-23-2023 End: 01-23-2024 Comprehensive metabolic 2000 panel - Serum or Plasma COMP METABOLIC PANEL Lab Routine Seropositive rheumatoid arthritis (HCC) Medication monitoring encounter Expected: 04/23/2023, Expires: 01/23/2024 [facility] Work Phone: Comment on above: Expected: 04/23/2023 , Expires: 01/23/2024 Start: 04-23-2023 End: 01-23-2024 Erythrocyte sedimentation rate SED RATE WESTERGREN Lab Routine Seropositive rheumatoid arthritis (HCC) Medication monitoring encounter Expected: 04/23/2023, Expires: 01/23/2024 [facility] Work Phone: Comment on above: Expected: 04/23/2023 , Expires: 01/23/2024 Start: 12-12-2022 End: 12-13-2023 CBC W Auto Differential panel - Blood CBC + DIFF Lab Routine Seropositive rheumatoid arthritis (HCC) Medication monitoring encounter Expected: 12/12/2022, Expires: 12/13/2023 [facility] Work Phone: Comment on above: Expected: 12/12/2022 , Expires: 12/13/2023 Start: 12-12-2022 End: 12-13-2023 Comprehensive metabolic 2000 panel - Serum or Plasma COMP METABOLIC PANEL Lab Routine Seropositive rheumatoid arthritis (HCC) Medication monitoring encounter Expected: 12/12/2022, Expires: 12/13/2023 [facility] Work Phone: Comment on above: Expected: 12/12/2022 , Expires: 12/13/2023 Start: 12-12-2022 End: 12-13-2023 Erythrocyte sedimentation rate SED RATE WESTERGREN Lab Routine Seropositive rheumatoid arthritis (HCC) Medication monitoring encounter Expected: 12/12/2022, Expires: 12/13/2023 [facility] Work Phone: Comment on above: Expected: 12/12/2022 , Expires: 12/13/2023 Start: 10-18-2022 Influenza vaccination [facility] Start: 09-25-2022 End: 09-26-2023 Comprehensive metabolic 2000 panel - Serum or Plasma [facility] Work Phone: Comment on above: Expected: 09/25/2022 , Expires: 09/26/2023 Start: 09-25-2022 End: 09-26-2023 Erythrocyte sedimentation rate [facility] Work Phone: Comment on above: Expected: 09/25/2022 , Expires: 09/26/2023 Start: 06-26-2022 End: 06-27-2023 CBC W Auto Differential panel - Blood CBC + DIFF Lab Routine Inflammatory arthritis Medication monitoring encounter Expected: 06/26/2022, Expires: 06/27/2023 [facility] Work Phone: Comment on above: Expected: 06/26/2022 , Expires: 06/27/2023 Start: 06-26-2022 End: 08-26-2022 Chronic hepatitis differentiation between hepatitis B and C virus panel - Serum or Plasma HEP REMOTE PANEL BL Lab Routine Inflammatory arthritis Medication monitoring encounter Expected: 06/26/2022, Expires: 08/26/2022 [facility] Work Phone: Comment on above: Expected: 06/26/2022 , Expires: 08/26/2022 Start: 06-26-2022 End: 06-27-2023 Comprehensive metabolic 2000 panel - Serum or Plasma COMP METABOLIC PANEL Lab Routine Inflammatory arthritis Medication monitoring encounter Expected: 06/26/2022, Expires: 06/27/2023 [facility] Work Phone: Comment on above: Expected: 06/26/2022 , Expires: 06/27/2023 Start: 06-26-2022 End: 06-27-2023 Erythrocyte sedimentation rate SED RATE WESTERGREN Lab Routine Inflammatory arthritis Medication monitoring encounter Expected: 06/26/2022, Expires: 06/27/2023 [facility] Work Phone: Comment on above: Expected: 06/26/2022 , Expires: 06/27/2023 Start: 06-24-2022 End: 06-25-2023 C reactive protein [Mass/volume] in Serum or Plasma [facility] Work Phone: Comment on above: Expected: 06/24/2022 , Expires: 06/25/2023 Start: 06-24-2022 End: 08-24-2022 Comprehensive metabolic 2000 panel - Serum or Plasma [facility] Work Phone: Comment on above: Expected: 06/24/2022 , Expires: 08/24/2022 Start: 06-24-2022 End: 08-24-2022 Creatine kinase [Enzymatic activity/volume] in Serum or Plasma [facility] Work Phone: Comment on above: Expected: 06/24/2022 , Expires: 08/24/2022 Start: 06-24-2022 End: 06-25-2023 Cyclic citrullinated peptide IgG Ab [Units/volume] in Serum or Plasma [facility] Work Phone: Comment on above: Expected: 06/24/2022 , Expires: 06/25/2023 Start: 06-24-2022 End: 06-25-2023 Nuclear Ab [Presence] in Serum by Immunoassay [facility] Work Phone: Comment on above: Expected: 06/24/2022 , Expires: 06/25/2023 Start: 06-24-2022 End: 08-24-2022 PROTEIN ELECTROPHORESIS SERUM W/INTERP [facility] Work Phone: Comment on above: Expected: 06/24/2022 , Expires: 08/24/2022 Start: 06-24-2022 End: 06-25-2023 Rheumatoid factor [Units/volume] in Serum or Plasma [facility] Work Phone: Comment on above: Expected: 06/24/2022 , Expires: 06/25/2023 Start: 06-24-2022 End: 08-24-2022 Urate [Mass/volume] in Serum or Plasma [facility] Work Phone: Comment on above: Expected: 06/24/2022 , Expires: 08/24/2022 Start: 02-17-2022 ADVANCE DIRECTIVE DISCUSSION ADVANCE DIRECTIVE DISCUSSION [facility] Start: 02-17-2022 DEPRESSION ASSESSMENT DEPRESSION ASS ESSMENT [facility] Start: 09-28-2020 BONE DENSITY BONE DENSITY [facility] Start: 09-28-2020 Bone Density Screening Bone Density Screening [facility] Start: 09-28-2020 PNEUMOCOCCAL: 65+ (1 - PCV) PNEUMOCOCCAL: 65+ (1 - PCV) [facility] Start: 02-28-2017 Pneumococcal Vaccine : 65+ (2 - PCV) Pneumococcal Vaccine: 65+ (2 - PCV) [facility] Start: 2015 RSV Vaccine (1 - 1-d ose 60+ series) RSV Vaccine (1 - 1-dose 60+ series) [facility] Start: 09-28-2005 SHINGRIX VACCINE (1 of 2) BA GRIX VACCINE (1 of 2) [facility] Start: 09-28-2000 COLOGUARD (FIT-DNA) COLOGUARD (FIT-D NA) [facility] Start: 09-28-2000 Colonoscopy COLONOSCOPY [facility] Start: 09-28-2000 COLORECTAL CANCER SCREENING COLORECTAL CANCER SCREENING [facility] Start: 09-28-[address] COLONOGRAPHY [facility] Start: 09-28-2000 DIABETES SCREEN DIABETES SCREEN [facility] Start: 09-28-2000 FECAL OCCULT BLOOD FECAL OCCULT BLOO D [facility] Start: 09-28-2000 Lipid 1996 panel - S west or Plasma Lipid Screening [facility] Start: 09-28-2000 LIPID SCREEN LIPID SCREEN [facility] Start: 09-28-2000 SIGMOIDOSCOPY SIGMOIDOSCOPY [facility] Start: [address] [facility] Start: 09-28-1974 SHINGRIX VACCINE (1 of 2) BA GRIX VACCINE (1 of 2) [facility] Start: 09-28-1974 Urine microalbumin profile [facility] Start: 09-28-1973 HEPATITIS C SCREENING HEPATITIS C SC JOSE [facility] Start: 09-28-1961 Pneumococcal Vaccine : 65+ (1 - PCV) Pneumococcal Vaccine: 65+ (1 - PCV) [facility] Start: 09-28-1961 PNEUMOCOCCAL: 65+ (1 - PCV) PNEUMOCOCCAL: 65+ (1 - PCV) [facility] Start: 09-28-1960 COVID-19 VACCINE (#1) COVID-19 VACCI NE (#1) [facility] Start: 03-31-1956 COVID-19 VACCINE (#1) COVID-19 VACCI NE (#1) [facility] CBC W Auto Different ial panel - Blood CBC + DIFF Lab Routine Bilateral hand swelling 06/24/2022 3:03 PM EDT [facility] Work Phone: End: 07-24-2023 Radiologic exam chest 2 views XR CHEST 2V FRONTAL/LAT Radiology Routine Bilateral hand swelling 1 Occurrences starting 06/24/2022 until 07/24/2023 [facility] Work Phone: Comment on above: 1 Occurrences starti ng 06/24/2022 until 07/24/2023 Radiologic exam ches t 2 views XR CHEST 2V FRONTAL/LAT Radiology Routine Bilateral hand swelling 06/24/2022 3:26 PM EDT [facility] Work Phone: [facility] Immunizations Immunization Date Immunization Notes Care Provider Foreign sampson 12-20-2018 influenza virus vaccine, unspecified formulation John Liz MD Work Phone: [facility] 12-18-2018 influenza virus vaccine, live, attenuated, for intranasal use Gerald Pham [facility] [place] Payers Date Payer Category Payer Worker's Compensation [id number] 2022 Worker's Compensation [id number] 2021 Medicaid MEDICAID [facility] MEDICAID [id number] 2021-Present [phone] [address] [place] [address] Medicaid [id number] 1959 Medicaid [id number] 1959 Medicare [id number] 1955 Unknown [id number] 3 1955 Unknown [id number] 3 1955 Unknown [id number] 3 1955 Unknown [id number] 3 1955 Unknown [id number] 7 1955 Unknown [id number] 7 1955 Unknown [id number] 7 1955 Unknown [id number] 7 1955 Unknown [id number] 7 1955 Unknown [id number] 7 Social History Date Type Detail Facility Start: 02-15-2021 Tobacco smoking status Heavy t obacco smoker (finding) [facility] Start: 06-23-2022 End: 06-24-2022 Sex Assigned At Female [facility] Tobacco smoking stat [facility] Tobacco smoking consumption unknown [facility] Work Phone: Start: 1955 Sex Assigned At Female [facility] Start: 06-23-2022 End: 06-24-2022 History of Social function [facility] Adult Depression Screening Assessment [address] [facility] Start: 06-23-2022 Gender identity Identifies as female gender (finding) [facility] Start: 06-23-2022 Sexual orientation Heterosexual (criselda rascon) [facility] Functional Status Date Assessment Result Facility 02-21-2023 Functional Status N/A [facility] 01-20-2023 Functional Status N/A [facility] 05-09-2022 Functional Status N/A [facility] 03-20-2022 Functional Status N/A [facility] 01-23-2022 Functional Status N/A [facility] 11-20-2021 Functional Status N/A [facility] 11-15-2021 Functional Status N/A [facility] Clinical Notes 03-20-2022 to 03-10-2023 Note Date & Type Note Facility 03-10-2023 Note HNO ID: [id number] Author: YANNA MILLER MD Service: ? Author [...] on the intergluteal cleft, buttocks, dorsal hands [place] macerated plaques on the abdominal pannus A/P: [...] direct input. Yanna Miller MD Dermatology Staff [facility] 02-21-2023 Evaluation + Plan note Extrac joshua from: Title:Pain Managment Follow up Author:Nyasia Miller Date:02/21/23 Impression and Plan Patient is a 67-year-old female with a past medical history significant for a [facility] claim. The approved diagnosis codes [...] injections. She is going to continue on [place] given to her by her PCP. She is going to start Lyrica 50 mg twice daily. Potential side effects were discussed. How to use the medication was discussed. OARRS was reviewed. COLLETTE score: 46%. Follow-up in 1 month. Future Appointments Appointment Date:03/28/2023 02:15:00 PM Scheduled Provider:Nyasia Helton PA-C Location[facility] Appointment Type:Pain Management - Workmans Comp Follow U [facility]12-06-2023 NoteHNO ID: [id number] Author: John Liz MD Service: ? Author [...] Dr Lala her PCP from [facility] in [place] prescribed prednisone 40 mg/d x 5. Reduced [...] Future Standing Expiration Da (more content not included)...[facility] 01-22-2023 History of Present illness Narrative* [...] Dr Lala her PCP from [facility] in [place] prescribed prednisone 40 mg/d x 5. Reduced [...] mo John Liz MD documented in this encounterMer[facility]12[facility]2023 Note [id number] Regional [facility] 12-12-2022 Miscellaneous Notes* Telephone Encounter - John [...] MD 06/24/2022 Bilateral hand swelling Rheumatology John iLz MD Upcoming Rheumatology Appointments - Next 365 Days Visit Type Date Time Department [facility] 01/22/2023 1:40 PM [facility] CBC: CBC Latest Ref Rng & [...] Instance) Lab Orders None documented in this encounterMer[facility]23 Miscellaneous Notes* Telephone Encounter - Hallie Stallings - 11/08/2022 11:07 AM EDT Patient called in to let Dr. Miller that the triamcinolone (KENALOG) 0.025 % ointment does not work. Patient wants to know if she can be prescribed something else. ketoconazole (NIZORAL) 2 % cream is working well for the patient. documented in this encounterMer[facility]09[facility]2023 Miscellaneous Notes* Telephone Encounter - Doreen William - 11/07/2022 8:54 AM EDT Patient last seen 06/2022 RX Ketoconazole Please approve prescription and any additional refills and e-script to designated pharmacy. Thank you, Doreen William documented in this encounterMer[facility]09-12-2023 Miscellaneous Notes* Telephone Encounter - Lucinda [...] from 21 to 16. documented in [address] encounter[facility]08-16-2023 Miscellaneous Notes* Telephone Encounter - Karyn [...] feet and anklesare swelling Please call pt [phone] documented in [address] [facility]08-09-2023 NoteHNO ID: [id number] Author: John Liz MD Service: ? Author [...] Dr Lala her PCP from [facility] in [place] prescribed prednisone 40 mg/d x 5. Reduced [...] RATE WESTERGREN Rv 3 mo [facility]08-09-2023 History of Present illness Narrative* John [...] Dr Lala her PCP from [facility] in [place] prescribed prednisone 40 mg/d x 5. Reduced [...] mo John Liz MD documented in this encounterMer[facility]05-11-2023 NoteHNO ID: [id number] Author: Yanna Miller MD Service: ? Author [...] Lymph 1.00 - 4.00 k/uL 4.49 (H) [place]% % 7.0 Abs [place] <0.87 k/uL 1.50 (H) Eosin% % 0.0 [...] systemic rheumatologic management sugges (more content not included)...[facility]05-11-2023 History of Present illness Narrative* Yanna [...] Lymph 1.00 - 4.00 k/uL 4.49 (H) [place]% % 7.0 Abs [place] <0.87 k/uL 1.50 (H) Eosin% % 0.0 [...] arises. Yanna Miller MD documented in this encounterMer[facility]05-10-2023 Miscellaneous Notes* Telephone Encounter - Karyn [...] mail. She said please send Rx to [facility] pharmacy in [place], [place] on [address]. She also notes that her hands are stiff and swollen again. She stopped prednisone Friday (she is out of pills) and the stiffness and swelling came back this morning. Also - she made an appointment to see Derm at [facility]. Her appointment is tomorrow 06/27. 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 John Liz MD documented in this encounterMer[facility]05-08-2023 NoteHNO ID: [id number] Author: John Liz MD Service: ? Author [...] Dr Lala her PCP from [facility] in [place] prescribed prednisone 40 mg/d x 5. Reduced [...] which included preparing to see the patient, [id number] patient care, completing clinical documentation, obtaining and/or reviewing separately obtained (more content not included)...[facility]05-08-2023 History of Present illness Narrative* John [...] Dr Lala her PCP from [facility] in [place] prescribed prednisone 40 mg/d x 5. Reduced [...] which included preparing to see the patient, [id number] patient care, completing clinical documentation, obtaining and/or reviewing separately obtained history, performing a medically appropriate examination, counseling and educating the pat ient/family/caregiver, and ordering medications, tests, or procedures. documented in this encounterMer[facility] Health [facility]03-25-2023 NoteHOSPITAL REGULATIONS: All Positive and Important Negative Findings Shall Be Recorded Date of Consultation: 05/09/2022 Attending Physician: Adán M. Hoy, M.D. Consulting Physician: Gerald Pham M.D. CHIEF [...] stenosis at the L4-5 foramen. I reviewed [employer] Automated Prescription Reporting System report on her [...] total. Gerald Pham M.D. lr Dictated: 05/09/2022 [id number] Transcribed: 05/10/2022 cc:Adán Lala M.D.[facility] HospitalComment on above:Result Comment: Electronically Signed By: Gerald Pham MD\.br\Date and Time Signed: 05/11/22 18:51 [id number] Note [id number]:127[facility] Evaluation + Plan note Future Appointments Appointment Date:11/20/2021 08:00:00 AM Scheduled Provider:Cezar Coe MD [facility] Appointment Type:[facility] - Worker's Comp [facility] ([place] Future Appointments Appointment Date:05/09/2022 02:30:00 PM Scheduled Provider:Gerald Pham MD Location:[facility] Appointment Type:Pain Management - Follow Up ([facility]) [facility] Future Appointments Appointment Date:06/26/2022 11:15:00 AM Scheduled Provider:Gerald Pham MD Location:[facility] Appointment Type:Pain Management - Workmans Comp [facility] Future Appointments Appointment Date:02/21/2023 03:15:00 PM Scheduled Provider:Nyasia Helton PA-C Location:[facility] Appointment Type:Pain Management - Follow Up ([facility]) [facility]* Diagnosis Bilateral hand swelling- Primary Psoriasis Other psoriasis documented in this encounter [facility]* Diagnosis 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 Medication monitoring encounter Encounter for therapeutic drug monitoring documented in this encounter [facility]* Diagnosis Psoriasis- Primary Other psoriasis Intertrigo Other specified erythematous condition documented in this encounter [facility]* Diagnosis Seropositive rheumatoid arthritis (HCC)- Primary Rheumatoid arthritis Medication monitoring encounter Encounter for therapeutic drug monitoring documented in this encounter [facility]* Diagnosis Seropositive rheumatoid arthritis (HCC)- Primary Rheumatoid arthritis Medication monitoring encounter Encounter for therapeutic drug monitoring [facility] Narrative No data available for this section [facility] No data available for this section [facility] No data available for this section [facility] Reason for Referral Specialty Diagnoses / Procedures Referred By Contac t Referred To Contact Dermatology Diagnoses Psoriasis Procedures CONSULT TO DERMATOLOGY OFFICE/OUTPATIENT [facility] 60-74 MINUTES John Liz MD [address] [place] [address] Referral ID Status Reason Start Date Expiration Date Visits Requested Visits Authorized [id number] Authorized PCP Requested Referral 06/24/2022 06/24/2023 1 1 Specialty Diagnoses / Procedures Referred By Contac t Referred To Contact XR IMAGING Diagnoses Bilateral hand swelling Procedures XR FOOT GENERAL 3V AP/LAT/OBL BILATERAL RADEX FOOT COMPLETE MINIMUM 3 VIEWS John Liz MD [address] [place] [address] Xr Imaging Referral ID Status Reason Start Date Expiration Date V isits Requested Visits Authorized [id number] Closed Auto-Generate d Referral 06/24/2022 07/24/2023 1 1 Specialty Diagnoses / Procedures Referred By Contac t Referred To Contact XR IMAGING Diagnoses Bilateral hand swelling Procedures XR HAND/WRIST SURVEY ARTHRITIS 1V PA BILATERAL JOINT SURVEY SINGLE VIEW 2 OR MORE JOINTS John Liz MD [address] [place] [address] Xr Imaging Referral ID Status Reason Start Date Expiration Date V isits Requested Visits Authorized [id number] Closed Auto-Generate d Referral 06/24/2022 07/24/2023 1 1 Summary Purpose Family History No Family History Records Found No data available for this section No data available for this section No Family History Records FoundNo Family History Records Found Advance Directives No Advanced Directives Records FoundNo Advanced Directives Records FoundNo Advanced Directives Records Found Additional Source Comments Care Team (unrecognized sect ion and content) Ecclesiastical Worker Relationship Specialty Start Date End Date Eula Tyler [address] [place] [address] PCP - General Family Medicine 06/21/22 Eula Tyler [address] [place] [address] Referring Family Medicine 06/21/22 Ecclesiastical Worker Relationship Specialty Start Date End Date Eula Tyler [address] [place] [address] PCP - General Family Medicine 06/21/22 Eula Tyler [address] [place] [address] Referring Family Medicine 06/21/22 Ecclesiastical Worker Relationship Specialty Start Date End Date Eula Tyler [address] [place] [address] PCP - General Family Medicine 06/21/22 Eula Tyler [address] [place] [address] Referring Family Medicine 06/21/22 Ecclesiastical Worker Relationship Specialty Start Date End Date Eula Tyler [address] [place] [address] PCP - General Family Medicine 06/21/22 Eula Tyler [address] [place] [address] Referring Family Medicine 06/21/22 Ecclesiastical Worker Relationship Specialty Start Date End Date Eula Tyler [address] [place] [address] PCP - General Family Medicine 06/21/22 Eula Tyler [address] [place] [address] Referring Family Medicine 06/21/22 Ecclesiastical Worker Relationship Specialty Start Date End Date Eula Tyler PA [address] [place] [address] PCP - General Family Medicine 06/21/22 Eula Tyler PA [address] [place] [address] Referring Family Medicine 06/21/22 Ecclesiastical Worker Relationship Specialty Start Date End Date Eula Tyler PA [address] [place] [address] PCP - General Family Medicine 06/21/22 Eula Tyler PA [address] [place] [address] Referring Family Medicine 06/21/22 Ecclesiastical Worker Relationship Specialty Start Date End Date Eula Tyler PA [address] [place] [address] PCP - General Family Medicine 06/21/22 Eula Tyler PA [address] [place] [address] Referring Family Medicine 06/21/22 Ecclesiastical Worker Relationship Specialty Start Date End Date Eula Tyler PA [address] [place] [address] PCP - General Family Medicine 06/21/22 Eula Tyler PA [address] [facility] [address] [place] [address] Referring Family Medicine 06/21/22 Ecclesiastical Worker Relationship Specialty Start Date End Date Adán Lala MD [address] [place] [address] PCP - General Family Medicine 01/17/23 Eula Tyler PA [address] [facility] [address] [place] [address] Referring Family Medicine 06/21/22 Source Comments (unrecognize d section and content) In the event this informatio n is protected by the Federal Confidentiality of Alcohol and Drug Abuse Patient Records regulations: The Federal rules restrict any use of the information to criminally investigate or prosecute any alcohol or drug abuse patient.[facility] HospitalIn the event this information is protected by the Federal Confidentiality of Alcohol and Drug Abuse Patient Records regulations: The Federal rules restrict any use of the information to criminally investigate or prosecute any alcohol or drug abuse patient.[facility] HospitalIn the event this information is protected by the Federal Confidentiality of Alcohol and Drug Abuse Patient Records regulations: The Federal rules restrict any use of the information to criminally investigate or prosecute any alcohol or drug abuse patient.[facility] HospitalIn the event this information is protected by the Federal Confidentiality of Alcohol and Drug Abuse Patient Records regulations: The Federal rules restrict any use of the information to criminally investigate or prosecute any alcohol or drug abuse patient.[facility] HospitalIn the event this information is protected by the Federal Confidentiality of Alcohol and Drug Abuse Patient Records regulations: The Federal rules restrict any use of the information to criminally investigate or prosecute any alcohol or drug abuse patient.[facility] HospitalIn the event this information is protected by the Federal Confidentiality of Alcohol and Drug Abuse Patient Records regulations: The Federal rules restrict any use of the information to criminally investigate or prosecute any alcohol or drug abuse patient.[facility] HospitalIn the event this information is protected by the Federal Confidentiality of Alcohol and Drug Abuse Patient Records regulations: The Federal rules restrict any use of the information to criminally investigate or prosecute any alcohol or drug abuse patient.[facility] HospitalIn the event this information is protected by the Federal Confidentiality of Alcohol and Drug Abuse Patient Records regulations: The Federal rules restrict any use of the information to criminally investigate or prosecute any alcohol or drug abuse patient.[facility] HospitalIn the event this information is protected by the Federal Confidentiality of Alcohol and Drug Abuse Patient Records regulations: The Federal rules restrict any use of the information to criminally investigate or prosecute any alcohol or drug abuse patient.[facility] HospitalIn the event this information is protected by the Federal Confidentiality of Alcohol and Drug Abuse Patient Records regulations: The Federal rules restrict any use of the information to criminally investigate or prosecute any alcohol or drug abuse patient.[facility] Reason for Visit (unrecogniz ed section and content) Reason Comments New Patient Reason Comments Results Reason Comments Full Body Skin Check Psoriasis/ blisters sparatic on the body Reason Comments Established Patient Reason Comments Medication Problem Reason Comments Patient Update Bruising Reason Comments Refill Request Reason Comments Patient Question INFORMATION SOURCE (unrecogn ized section and content) DATE CREATED AUTHOR 06/27/2022 Emmy Lowery [facility] DATE CREATED AUTHOR AUTHOR'S ORGANIZ ATION 02/22/2023 [facility] DATE CREATED AUTHOR AUTHOR'S ORGANIZ ATION 03/21/2023 [facility] FOR RECORDS PERTAINING TO PATIENTS WHO [...] BE BASED ON THE PRIMARY CLINICAL RECORDS. [employer] provides no warranty or guarantee of the accuracy or completeness of information in this document.
[2023-03-21] MEDS: LIDOCAINE HCL 1% 100 MG/10 ML MDV INJ (12:59)
[2023-03-21] MEDS: 0.9 % SODIUM CHLORIDE 500 ML, LIDOCAINE HCL 20 ML, SODIUM BICARBONATE 10 MEQ INJ (12:59)
== END 2023-03-21 12:34 | disposition home or self-care (01) ==
LOC: VC 12:34
PROVIDERS: PCP Radiology Diagnostic Radiology; Visit Provider Radiology Diagnostic Radiology
DX: I83.813 Varicose veins of bilateral lower extremities with pain (principal)
CPT/HCPCS: 36478

== ENCOUNTER 2023-03-24 12:56 | Outpatient (OUT) | payer MEDICARE, MEDICAID, SELFPAY ==
--- NOTE | 2023-03-24 12:58 | VEIN_ITS ---
Patient Name: DAVION HUMPHREYS MR#: [id number] : 1955 Exam Date: 03/24/2023 Ordering Doctor: DR JAMIR SPRAGUE M.D. RADIOLOGY REPORT PROCEDURE: [facility] EST [facility] - OFFICE VISIT FOLLOW UP [facility] PROGRESS NOTES: The patient reports no significant problems following intravenous laser ablation of the left great saphenous vein. The patient did not require oral analgesics. The patient has worn her compression stockings. The patient has tried exercise within the abilities of her rheumatoid arthritis Physical exam demonstrates mild subcutaneous edema below the left knee. The incision is sealed. No erythema or warmth to suggest cellulitis or thrombophlebitis. The thrombosed eft great saphenous vein can be partially palpated. Review of the ultrasound performed the same day demonstrates occlusive thrombus extending throughout the treated left great saphenous vein with propagation of clot into the vein of Giacomini. Heat induced thrombus is 2.8 cm in the saphenofemoral junction. No deep vein thrombus. The patient expressed a desire to proceed with treatment of incompetent varicose veins with micro foam chemical ablation. VEIN/[facility] EST TD IMPRESSION: 1. Successful ablation of the left great saphenous vein 2. Persistent incompetent bilateral varicose veins. PLAN: Micro foam chemical ablation right leg incompetent varicose veins Nurse notes, history and physical were reviewed and confirmed, see attached forms. The nurse was present throughout the physical exam and consultation Dictated by: Jamir Sprague MD on 03/24/2023 at 13:43 Approved by: Jamir Sprague MD on 03/24/2023 at 13:45
--- NOTE | 2023-03-24 12:58 | VEIN_ITS ---
Patient Name: DAVION HUMPHREYS MR#: [id number] : 1955 Exam Date: 03/24/2023 Ordering Doctor: DR JAMIR SPRAGUE M.D. RADIOLOGY REPORT PROCEDURE: VC EXT VENOUS LT LIMITED COMPARISON: None. INDICATIONS: I80.02 Phlebitis of superficial veins of left lower extremity TECHNIQUE: Lower extremity gardner scale and Duplex Doppler evaluation of the deep venous system from the inguinal ligament through the calf veins. FINDINGS: REGION: Left lower extremity. THROMBI: Negative for DVT. Heat induced thrombus in left GSV 2.8 cm from SFJ and extends to distal lower leg. Proximal/posterior branch off of GSV also thrombosed. COMPRESSIBILITY: Non-compressible segments corresponding to thrombus FLOW: Areas of no flow corresponding to thrombus CONCLUSION: Post ablation occlusion of the left great saphenous vein with heat induced thrombus 2.8 cm from the saphenofemoral junction. Dictated by: Jamir Sprague MD on 03/24/2023 at 13:32 Approved by: Jamir Sprague MD on 03/24/2023 at 13:35
--- OUTSIDE RECORDS SUMMARY | 2023-03-24 12:59 | XMS_ITS | CCD ---
Author Name Unknown Address [address] [place] [address] Organization [facility] Care Team Providers Care Bulb Packer Name Role Phone Adán Lala Primary Care Physician [phone] Eula Tyler Unavailable Eula Tyler Primary Care Provider [phone] DAI Jerez, DR MCCAIN Primary Care Unavailable [...] Unavailable HOY ., DR MCCAIN Attending Unavailable SHELDON, DR WADE Lozada Consulting Unavailable HOY ., DR MCCAIN Consulting Unavailable HOY ., DR MCCAIN Primary Care Unavailable HOY ., DR MCCAIN Admitting Unavailable HOY ., DR MCCAIN Attending Unavailable YESENIA, DR SOFIE Shepherd Consulting Unavailable Eula Tyler Unavailable Eula Tyler Primary Care Provider [phone] Eula Vital Unavailable Eula Vital Primary Care Provider Adán Lala MD Primary Care Provider [phone] Felice Phamry Admitting Unavailable Zumbar Gerald Attending [...] Codeine; Translations: [CODEINE] Drug Allergy 06-27-[address] [facility] Repository (8 sources) Codeine Drug Allergy 06-27-2022 GI Upset [facility] Medications Current Medications Medication Drug Class(es) [...] Start: 12-19-2022 take 2 tablets by mo [facility] once daily predniSONE (DELTASONE) 5 mg tablet [...] ESTHER EVERY DAY Take 2 tablets by [facility] once daily. pregabalin 50 mg oral capsule (1 source) Start: 02-21-2023 End: 03-23-2023 take 1 capsule by mouth twice daily pregabalin 50 mg Cap 50 mg = 1 cap(s), Oral, BID, X 30 day(s), # 60 cap(s), Refills(s) 0, Pharmacy: [facility]/pharmacy #[id number], 158, cm, 02/21/23 15:08:00 EST, [...] TWICE DAILY FOR SKIN FOLDS triamcinolone acetonide 0.92066 mg/mg topical ointment (8 sources) Corticosteroid Start: [...] Wilian 03-17-2023 DAWSON Telephone (DARNELL) SHELLY WILSON ([id number]) 1955 F Date Time Provider Department 03/17/23 JOHN LIZ During your visit today, we recorded the following information about you: Elena Hoyt 03/17/2023 11:42 AM Signed Pt is calling and states that her knuckles and wrist have been swollen for the last two weeks. She has no tilting head band sawyer strength and she doesn't see Dr. Liz [...] to make a fist but unable to tilting head band sawyer things. Denies any joint redness or excessive warmth to skin. Takes OTC Tylenol regular strength 2 tabs once a day for pain which helps a little. Pharmacy [facility] [place] on [facility] in the vent a script is sent [...] Encounter Status:Closed by ELENA HOYT on 03/19/23 [facility] Tammi 03-10-2023 CNOV Office Visit (DERMMN ) SHELLY WILSON ([id number]) 1955 F Date Time Provider Department 03/10/23 [...] on the intergluteal cleft, buttocks, dorsal hands [facility] macerated plaques on the abdominal pannus A/P: [...] mouth once (more content not included)... Normal [facility] CNPSammi 03-10-2023 CNPN Telephone (DERMMN) SHELLY WILSON ([id number]) 1955 F Date Time Provider Department 03/10/23 YANNA MILLER DERMMN During your visit today, we recorded the following information about you: Richi Blanc 03/10/2023 2:14 PM Signed I have sent PA form to [facility] for patients VTAMA. Sent electronically through [employer] used L40.9 Sims: [id number] Richi Blanc 03/10/2023 4:27 PM Signed Received [...] Faxed appeal with letter of necessity to [facility] @ [phone] Richi Blanc 03/13/2023 8:46 AM Signed Received APPROVAL for patient's VTAMA Document uploaded to chart. Dates reflect: 03/10/2023 until further notice Informing patient of approval through [employer]. Allergies As of Date: 03/10/2023 Noted Allergy [...] Status:Closed by HALLIE STALLINGS on 03/11/23 Normal [facility] Consent for Treatmenton Consent for Treatment [id number]#1. 00TIFF Normal [facility] Consultation Noteon 02-21-19 Consultation Note Patient: SHELLY [...] that she rates a 4/10. She has Mesa given to her by her PCP. She [...] day(s), # 60 cap(s), Refills(s) 0, Pharmacy: [facility]/pharmacy #[id number], 158, cm, 02/21/23 15:08:00 EST, [...] list: All Problems Hyperlipidemia / SNOMED CT 05374510 / Confirmed Hypertension / SNOMED CT 0020939949 / Confirmed Obesity / SNOMED CT 9508538361 / Confirmed Smoker / SNOMED CT 167553697 / Confirmed History of osteoarthritis / SNOMED CT 776396563 / Confirmed Resolved: Ganglion cyst of right wrist / SNOMED CT 450740142009178 Objective Measurements from flowsheet : Measurements 02/21/2023 [...] 5/5 lower extremity strength Integumentary: Warm, Dry, [facility]. Injection site well-healed Neurologic: Alert, Oriented. Psychiatric: Cooperative, Appropriate mood & affect. Impression and Plan Patient is a 67-year-old female with a past medical history significant for a [facility] claim. The approved diagnosis codes are lumbosacral [...] injections. She is going to continue on Mesa given to her by her PCP. She is going to start Lyrica 50 mg twice daily. Potential side effects were discussed. How to use the medication was discussed. OARRS was reviewed. COLLETTE score: 46%. Follow-up in 1 month. Normal [facility] Comment on above: Result Comment: Elec tronically Signed By: Sunitha BRADY, Nyasia\.br\Date and Time Signed: 02/21/23 15:28 EST Legal Correspondence Officeo n 02-21-2023 Legal Correspondence Office [id number]#1.0 0TIFF Normal [facility] Office/Clinic Note-Physician on 02-21-2023 Office/Clinic Note-Physician [id number]#1.0 0TIFF Normal [facility] Patient Correspondenceon Patient Correspondence [id number]#1.0 0TIFF Normal [facility] Patient Correspondence [id number]#1.0 0TIFF Normal [facility] Patient Correspondence [id number]#1.0 0TIFF Normal [facility] Patient Correspondence [id number]#1.0 0TIFF [facility] Patient History Officeon Patient History Office [id number]#1.0 0TIFF [facility] Operative Reporton 3 Operative Report Patient: SHELLY [...] Correction: Diagnosis: spinal stenosis, lumbosacral region Normal [facility] Comment on above: Result Comment: Elec tronically Signed By: Neeraj HUDSON, Barry Means.br\Date and Time Signed: 01/28/23 12:16 EST LEONARDAon 01-22-2023 CNOV Office Visit (DARNELL ) SHELLY WILSON ([id number]) 1955 F Date Time Provider Department 01/22/23 [...] showing osteoarthritis. Dr Lala her PCP from [facility] in [place] prescribed prednisone 40 mg/d x 5. Reduced [...] See ophthalmology (more content not included)... Normal [facility] Consent for Procedure/Surger yon 01-20-2023 Consent for Procedure/Surgery [id number]#1. 00TIFF [facility] Consent for Treatmenton Consent for Treatment [id number]#1.0 0TIFF [facility] Discharge Instructionson Discharge Instructions [id number]#1. 00TIFF [facility] IntraOperative Documentson 1 03-23-2022 IntraOperative Documents [id number]#1. 00TIFF [facility] Main OR Intraoperative Recor don 01-20-2023 Main OR Intraoperative Record IntraOp Document Type FTPM Summary Primary Physician: Barry Pickard MD Finalized Date/Time: 01/20/23 13:46:44 Pt. Name: SHELLY HUMPHREYS/Sex: 1955 Female Med Rec #: [id number] Physician: Barry Pickard MD Financial #: [id number] Pt. Type: P Room/Bed: / Admit/Disch: 01/20/23 [...] Addis Perez Role Performed Surgeon - Primary Automation And Controls Manager - Primary Scrub - Primary Time In 01/20/23 13:40:00 01/20/23 13:40:00 01/20/23 13:40:00 Time Out 01/20/23 13:46:00 01/20/23 13:46:00 01/20/23 13:46:00 Procedure TRANSFORAMINAL EPIDURAL TRANSFORAMINAL EPIDURAL TRANSFORAMINAL EPIDURAL STEROID STEROID STEROID INJECTIO(Bilateral) INJECTIO(Bilateral) INJECTIO(Bilateral) Comments Last Modified By: Padmini Morejon RN, RN, Padmini Jimenez RN 01/20/23 13:46:06 01/20/23 13:46:06 01/20/23 13:46:06 Entry 4 Case Attendee Shannon Christian (R) Role Performed Drying Machine Receiver Time In 01/20/23 13:40:00 Time Out 01/20/23 [...] and tissue Entry 1 Skin Integrity Intact, [facility], Warm, and Skin Abnormality No Dry Outcomes [...] Safety Strap, (more content not included)... Normal [facility] Main OR Preoperative Recordo n 01-20-2023 Main OR Preoperative Record Holding Area Document Type FTPM Summary Primary Physician: Barry Pickard MD Finalized Date/Time: 01/20/23 13:38:50 Pt. Name: SHELLY HUMPHREYS./Sex: 1955 Female Med Rec #: [id number] Physician: Barry Pickard MD Financial #: [id number] Pt. Type: P Room/Bed: / Admit/Disch: 01/20/23 [...] By: Suzette Ferrer RN 01/20/23 13:38 Normal [facility] CBC W Auto Differential pane l (Bld)on 01-17-2023 Basophils (Bld) [#/Vol] 0.12 10*3/uL High <0.11 [facility] Comment on above: Order Comment: Speci men Type: BLOOD SPECIMENOrdering Facility: [facility] Address: [address] [place] [address] Performed By: #### 5 7021-8 ####[facility] LABCLIA [id number] [place] [address] Basophils/100 WBC (Bld) 0.8 % Normal [facility] Comment on above: Order Comment: Speci men Type: BLOOD SPECIMENOrdering Facility: [facility] Address: [address] [place] [address] Performed By: #### 5 7021-8 ####[facility] LABCLIA [id number] [place] [address] Differential cell count method Nom (Bld) Auto Normal [facility] Comment on above: Order Comment: Speci men Type: BLOOD SPECIMENOrdering Facility: [facility] Address: [address] [place] [address] Performed By: #### 5 7021-8 ####[facility] LABCLIA [id number] [place] [address] Eosinophils (Bld) [#/Vol] 0.17 10*3/uL Normal <0.46 [facility] Comment on above: Order Comment: Speci men Type: BLOOD SPECIMENOrdering Facility: [facility] Address: [address] [place] [address] Performed By: #### 5 7021-8 ####[facility] LABCLIA [id number] [place] [address] Eosinophils/100 WBC (Bld) 1.1 % Normal [facility] Comment on above: Order Comment: Speci men Type: BLOOD SPECIMENOrdering Facility: [facility] Address: [address] [place] [address] Performed By: #### 5 7021-8 ####[facility] LABCLIA [id number] [place] [address] Erythrocyte distribution width (RBC) [Ratio] 13.2 % Normal 11.5-15.0 [facility] Comment on above: Order Comment: Speci men Type: BLOOD SPECIMENOrdering Facility: [facility] Address: [address] [place] [address] Performed By: #### 5 7021-8 ####[facility] LABCLIA [id number] [place] [address] Hematocrit (Bld) [Volume fraction] 44.1 % Normal 36.0-46.0 [facility] Comment on above: Order Comment: Speci men Type: BLOOD SPECIMENOrdering Facility: [facility] Address: [address] [place] [address] Performed By: #### 5 7021-8 ####[facility] LABCLIA [id number] [place] [address] Hemoglobin (Bld) [Mass/Vol] 14.4 g/dL Normal 11.5-15.5 [facility] Comment on above: Order Comment: Speci men Type: BLOOD SPECIMENOrdering Facility: [facility] Address: [address] [place] [address] Performed By: #### 5 7021-8 ####[facility] LABCLIA [id number] [place] [address] Immature granulocytes (Bld) [#/Vol] 0.12 10*3/uL High <0.10 [facility] Comment on above: Order Comment: Speci men Type: BLOOD SPECIMENOrdering Facility: [facility] Address: [address] [place], [place] [address] Performed By: #### 5 7021-8 ####[facility] LABCLIA [id number] [place] [address] Immature granulocytes/100 WBC (Bld) 0.8 % Normal [facility] Comment on above: Order Comment: Speci men Type: BLOOD SPECIMENOrdering Facility: [facility] Address: [address] [place] [address] Performed By: #### 5 7021-8 ####[facility] LABCLIA [id number] [place] [address] Lymphocytes (Bld) [#/Vol] 2.38 10*3/uL Normal 1.00-4.00 [facility] Comment on above: Order Comment: Speci men Type: BLOOD SPECIMENOrdering Facility: [facility] Address: [address] [place] [address] Performed By: #### 5 7021-8 ####[facility] LABCLIA [id number] [place] [address] Lymphocytes/100 WBC (Bld) 15.3 % Normal [facility] Comment on above: Order Comment: Speci men Type: BLOOD SPECIMENOrdering Facility: [facility] Address: [address] [place] [address] Performed By: #### 5 7021-8 ####[facility] LABCLIA [id number] [place] [address] MCH (RBC) [Entitic mass] 31.4 pg Normal 26.0-34.0 [facility] Comment on above: Order Comment: Speci men Type: BLOOD SPECIMENOrdering Facility: [facility] Address: [address] [place] [address] Performed By: #### 5 7021-8 ####[facility] LABCLIA [id number] [place] [address] MCHC (RBC) [Mass/Vol] 32.7 g/dL Normal 30.5-36.0 [facility] Comment on above: Order Comment: Speci men Type: BLOOD SPECIMENOrdering Facility: [facility] Address: [address] [place] [address] Performed By: #### 5 7021-8 ####[facility] LABCLIA [id number] [place] [address] MCV (RBC) [Entitic vol] 96.3 fL Normal 80.0-100.0 [facility] Comment on above: Order Comment: Speci men Type: BLOOD SPECIMENOrdering Facility: [facility] Address: [address] [place] [address] Performed By: #### 5 7021-8 ####[facility] LABCLIA [id number] [place] [address] Monocytes (Bld) [#/Vol] 1.19 10*3/uL High <0.87 [facility] Comment on above: Order Comment: Speci men Type: BLOOD SPECIMENOrdering Facility: [facility] Address: [address] [place] [address] Performed By: #### 5 7021-8 ####[facility] LABCLIA [id number] [place] [address] Monocytes/100 WBC (Bld) 7.7 % Normal [facility] Comment on above: Order Comment: Speci men Type: BLOOD SPECIMENOrdering Facility: [facility] Address: [address] [place] [address] Performed By: #### 5 7021-8 ####[facility] LABCLIA [id number] [place] [address] Neutrophils (Bld) [#/Vol] 11.55 10*3/uL High 1.45-7.50 [facility] Comment on above: Order Comment: Speci men Type: BLOOD SPECIMENOrdering Facility: [facility] Address: [address] [place] [address] Performed By: #### 5 7021-8 ####[facility] LABCLIA [id number] [place] [address] Neutrophils/100 WBC (Bld) 74.3 % Normal [facility] Comment on above: Order Comment: Speci men Type: BLOOD SPECIMENOrdering Facility: [facility] Address: [address] [place] [address] Performed By: #### 5 7021-8 ####[facility] LABCLIA [id number] [place] [address] Nucleated RBC (Bld) [#/Vol] 10*3/uL Normal <0.01 [facility] Comment on above: Order Comment: Speci men Type: BLOOD SPECIMENOrdering Facility: [facility] Address: [address] [place] [address] Performed By: #### 5 7021-8 ####[facility] LABIA [id number] [place] [address] Nucleated RBC/100 WBC (Bld) [Ratio] 0.0 /100 WBC Normal [facility] Comment on above: Order Comment: Speci men Type: BLOOD SPECIMENOrdering Facility: [facility] Address: [address] [place] [address] Performed By: #### 5 7021-8 ####[facility] LABCLIA [id number] [place] [address] Platelet mean volume (Bld) [Entitic vol] 8.8 fL Low 9.0-12.7 [facility] Comment on above: Order Comment: Speci men Type: BLOOD SPECIMENOrdering Facility: [facility] Address: [address] [place] [address] Performed By: #### 5 7021-8 ####[facility] LABIA [id number] [place] [address] Platelets (Bld) [#/Vol] 413 10*3/uL High 150-400 [facility] Comment on above: Order Comment: Speci men Type: BLOOD SPECIMENOrdering Facility: [facility] Address: [address] [place] [address] Performed By: #### 5 7021-8 ####[facility] LABCLIA [id number] [place] [address] RBC (Bld) [#/Vol] 4.58 10*6/uL Normal 3.90-5.20 [facility] Comment on above: Order Comment: Speci men Type: BLOOD SPECIMENOrdering Facility: [facility] Address: [address] [place] [address] Performed By: #### 5 7021-8 ####[facility] LABCLIA [id number] [place] [address] WBC (Bld) [#/Vol] 15.53 10*3/uL High 3.70-11.00 [facility] Comment on above: Order Comment: Speci men Type: BLOOD SPECIMENOrdering Facility: [facility] Address: [address] [place] [address] Performed By: #### 5 7021-8 ####[facility] LABCLIA [id number] [place] [address] Comprehensive metabolic 2000 panelon 01-17-2023 Albumin [Mass/Vol] 4.5 g/dL Normal 3.9-4.9 [facility] Comment on above: Order Comment: Speci men Type: BLOOD SPECIMENOrdering Facility: [facility] Address: [address] [place] [address] Performed By: #### 2 4323-8 ####[facility] LABCLIA [id number] [place] [address] ALP [Catalytic activity/Vol] 75 U/L Normal 34-123 [facility] Comment on above: Order Comment: Speci men Type: BLOOD SPECIMENOrdering Facility: [facility] Address: [address] [place] [address] Performed By: #### 2 4323-8 ####[facility] LABCLIA [id number] [place] [address] ALT [Catalytic activity/Vol] 12 U/L Normal 7-38 [facility] Comment on above: Order Comment: Speci men Type: BLOOD SPECIMENOrdering Facility: [facility] Address: [address] [place] [address] Performed By: #### 2 4323-8 ####[facility] LABCLIA [id number] [place] [address] Anion gap [Moles/Vol] 9 mmol/L Normal 9-18 [facility] Comment on above: Order Comment: Speci men Type: BLOOD SPECIMENOrdering Facility: [facility] Address: [address] [place] [address] Performed By: #### 2 4323-8 ####[facility] LABCLIA [id number] [place] [address] AST [Catalytic activity/Vol] 17 U/L Normal 13-35 [facility] Comment on above: Order Comment: Speci men Type: BLOOD SPECIMENOrdering Facility: [facility] Address: [address] [place] [address] Performed By: #### 2 4323-8 ####[facility] LABCLIA [id number] [place] [address] Bilirubin [Mass/Vol] 0.4 mg/dL Normal 0.2-1.3 [facility] Comment on above: Order Comment: Speci men Type: BLOOD SPECIMENOrdering Facility: [facility] Address: [address] [place] [address] Performed By: #### 2 4323-8 ####[facility] LABCLIA [id number] [place] [address] Calcium [Mass/Vol] 9.6 mg/dL Normal 8.5-10.2 [facility] Comment on above: Order Comment: Speci men Type: BLOOD SPECIMENOrdering Facility: [facility] Address: [address] [place] [address] Performed By: #### 2 4323-8 ####[facility] LABCLIA [id number] [place] [address] Chloride [Moles/Vol] 101 mmol/L Normal 97-105 [facility] Comment on above: Order Comment: Speci men Type: BLOOD SPECIMENOrdering Facility: [facility] Address: [address] [place] [address] Performed By: #### 2 4323-8 ####[facility] LABCLIA [id number] [place] [address] CO2 [Moles/Vol] 28 mmol/L Normal 22-30 [facility] Comment on above: Order Comment: Speci men Type: BLOOD SPECIMENOrdering Facility: [facility] Address: [address] [place] [address] Performed By: #### 2 4323-8 ####[facility] LABCLIA [id number] [place] [address] Creatinine [Mass/Vol] 0.67 mg/dL Normal 0.58-0.96 [facility] Comment on above: Order Comment: Speci men Type: BLOOD SPECIMENOrdering Facility: [facility] Address: [address] [place] [address] Performed By: #### 2 4323-8 ####[facility] LABCLIA [id number] [place] [address] Creatinine and Glomerular filtration rate.predicted panel (S/P/Bld) 96 mL/min/1.73m??? Normal >=60 [facility] Comment on above: Order Comment: Speci men Type: BLOOD SPECIMENOrdering Facility: [facility] Address: [address] [place] [address] Result Comment: Carmen mated Glomerular Filtration Rate [...] actual GFR. Performed By: #### 2 4323-8 ####[facility] LABCLIA [id number] [place] [address] Glucose [Mass/Vol] 104 mg/dL High 74-99 [facility] Comment on above: Order Comment: Speci men Type: BLOOD SPECIMENOrdering Facility: [facility] Address: [address] [place] [address] Result Comment: The [place] [employer] (ADA) provides guidance for cutoff [...] Standards of Medical Care in Diabetes 2016, [place] [employer]. Diabetes Care. 2016.39(Suppl 1). Performed By: #### 2 4323-8 ####[facility] LABCLIA [id number] [place] [address] Potassium [Moles/Vol] 4.1 mmol/L Normal 3.7-5.1 [facility] Comment on above: Order Comment: Speci men Type: BLOOD SPECIMENOrdering Facility: [facility] Address: [address] [place] [address] Performed By: #### 2 4323-8 ####[facility] LABCLIA [id number] [place] [address] Protein [Mass/Vol] 6.9 g/dL Normal 6.3-8.0 [facility] Comment on above: Order Comment: Speci men Type: BLOOD SPECIMENOrdering Facility: [facility] Address: [address] [place] [address] Performed By: #### 2 4323-8 ####[facility] LABCLIA [id number] [place] [address] Sodium [Moles/Vol] 138 mmol/L Normal 136-144 [facility] Comment on above: Order Comment: Speci men Type: BLOOD SPECIMENOrdering Facility: [facility] Address: [address] [place] [address] Performed By: #### 2 4323-8 ####[facility] LABCLIA [id number] [place] [address] Urea nitrogen [Mass/Vol] 11 mg/dL Normal 7-21 [facility] Comment on above: Order Comment: Speci men Type: BLOOD SPECIMENOrdering Facility: [facility] Address: [address] [facility] [place] [address] Performed By: #### 2 4323-8 ####[facility] LABCLIA [id number] [place] [address] ESR Westergren method (Bld) [Velocity]on 01-17-2023 ESR (Bld) [Velocity] 12 mm/h Normal 0-20 [facility] Comment on above: Order Comment: Speci men Type: BLOOD SPECIMENOrdering Facility: [facility] Address: Edu [place] [address] Performed By: #### 4 537-7 ####[facility] LABCLIA [id number] [facility] [address] [place] [id number] [place] Patient Correspondenceon Patient Correspondence [id number]#1.0 0TIFF Normal [facility] Workers' Comp Officeon 01-02 Workers' Comp Office [id number]#5.0 0TIFF Normal [facility] CNPSammi 11-08-2022 TRACYN Telephone (DERMMN) SHELLY WILSON ([id number]) 1955 F Date Time Provider Department 11/08/22 [...] Fully Assessed Reason for Visit: Patient Question [7] Prescriptions as of 11/11/2022 - ketoconazole (NIZORAL) [...] Encounter Status:Closed by HALLIE STALLINGS on 11/08/22 [facility] 10-28-2022 CNPN Telephone (DARNELL) SHELLY WILSON ([id number]) 1955 F Date Time Provider Department 10/28/22 [...] Encounter Status:Closed by LUCINDA AGARWAL on 10/29/22 [facility] 10-01-2022 CNPN Telephone (DARNELL) SHELLY WILSON ([id number]) 1955 F Date Time Provider Department 10/01/22 JOHN LIZ During your visit today, we recorded the following information about you: Liana Lynn 10/01/2022 4:14 PM Signed Pt called to let dr. Liz know since she changed how she takes her medications her feet and ankles are swelling Please call pt [phone] John Liz MD 10/02/2022 10:53 AM Signed [...] Status:Closed by KARYN KOENIG on 10/02/22 Normal [facility] CBC W Auto Differential pane l (Bld)on 09-25-2022 Basophils (Bld) [#/Vol] 0.08 10*3/uL <0.11 k/uL [facility] Basophils/100 WBC (Bld) 0.4 % [facility] Differential cell count method Nom (Bld) Auto [facility] Eosinophils (Bld) [#/Vol] <0.46 k/uL [facility] Eosinophils/100 WBC (Bld) 0.1 % [facility] Erythrocyte distribution width (RBC) [Ratio] 14.6 % 11.5 - 15.0 % [facility] Hematocrit (Bld) [Volume fraction] 46.6 % High 36.0 - 46.0 % [facility] Hemoglobin (Bld) [Mass/Vol] 15.4 g/dL 11.5 - 15.5 g/dL [facility] Immature granulocytes (Bld) [#/Vol] 0.23 10*3/uL High <0.10 k/uL [facility] Immature granulocytes/100 WBC (Bld) 1.2 % [facility] Lymphocytes (Bld) [#/Vol] 1.81 10*3/uL 1.00 - 4.00 k/uL [facility] Lymphocytes/100 WBC (Bld) 9.3 % [facility] MCH (RBC) [Entitic mass] 30.8 pg 26.0 - 34.0 pg [facility] MCHC (RBC) [Mass/Vol] 33.0 g/dL 30.5 - 36.0 g/dL [facility] MCV (RBC) [Entitic vol] 93.2 fL 80.0 - 100.0 fL [facility] Monocytes (Bld) [#/Vol] 1.05 10*3/uL High <0.87 k/uL [facility] Monocytes/100 WBC (Bld) 5.4 % [facility] Neutrophils (Bld) [#/Vol] 16.19 10*3/uL High 1.45 - 7.50 k/uL [facility] Neutrophils/100 WBC (Bld) 83.6 % [facility] Nucleated RBC (Bld) [#/Vol] <0.01 k/uL [facility] Nucleated RBC/100 WBC (Bld) [Ratio] 0.0 /100 WBC [facility] Platelet mean volume (Bld) [Entitic vol] 9.4 fL 9.0 - 12.7 fL [facility] Platelets (Bld) [#/Vol] 454 10*3/uL High 150 - 400 k/uL [facility] RBC (Bld) [#/Vol] 5.00 10*6/uL 3.90 - 5.2 0 m/uL [facility] WBC (Bld) [#/Vol] 19.38 10*3/uL High 3.70 - 11 .00 k/uL [facility] Basophils (Bld) [#/Vol] 0.08 10*3/uL Normal <0.11 [facility] Comment on above: Order Comment: Speci men Type: BLOOD SPECIMENOrdering Facility: [facility] Address: [address] [address] Performed By: #### 5 7021-8, 4537-7 ####[facility] LABCLIA [id number] [address] OF [facility] Basophils/100 WBC (Bld) 0.4 % Normal [facility] Comment on above: Order Comment: Speci men Type: BLOOD SPECIMENOrdering Facility: [facility] Address: [address] [address] Performed By: #### 5 7021-8, 4536-7 ####[facility] LABCLIA [id number] [place] [address] [place] Differential cell count method Nom (Bld) Auto Normal [facility] Comment on above: Order Comment: Speci men Type: BLOOD SPECIMENOrdering Facility: [facility] Address: [address] [place], [place] [address] Performed By: #### 5 7021-8, 7 ####[facility] LABCLIA [id number] [place] [address] [place] Eosinophils (Bld) [#/Vol] 10*3/uL Normal <0.46 [facility] Comment on above: Order Comment: Speci men Type: BLOOD SPECIMENOrdering Facility: [facility] Address: [address] [place], [place] [address] Performed By: #### 5 7021-8, 7 ####[facility] LABCLIA [id number] [place] [address] [place] Eosinophils/100 WBC (Bld) 0.1 % Normal [facility] Comment on above: Order Comment: Speci men Type: BLOOD SPECIMENOrdering Facility: [facility] Address: [address] [place], [place] [address] Performed By: #### 5 7021-8, 7 ####[facility] LABCLIA [id number] [place] [address] [place] Erythrocyte distribution width (RBC) [Ratio] 14.6 % Normal 11.5-15.0 [facility] Comment on above: Order Comment: Speci men Type: BLOOD SPECIMENOrdering Facility: [facility] Address: [address] Performed By: #### 5 7021-8, 4536-7 ####[facility] LABCLIA [id number] [place] [id number] [place] Hematocrit (Bld) [Volume fraction] 46.6 % High 36.0-46.0 [facility] Comment on above: Order Comment: Speci men Type: BLOOD SPECIMENOrdering Facility: [facility] Address: [address] [place] [address] Performed By: #### 5 7021-8, 4537-7 ####[facility] LABCLIA [id number] [place] [address] [place] Hemoglobin (Bld) [Mass/Vol] 15.4 g/dL Normal 11.5-15.5 [facility] Comment on above: Order Comment: Speci men Type: BLOOD SPECIMENOrdering Facility: [facility] Address: [address] [place] [address] Performed By: #### 5 7021-8, 7-7 ####[facility] LABCLIA [id number] [place] [address] [place] Immature granulocytes (Bld) [#/Vol] 0.23 10*3/uL High <0.10 [facility] Comment on above: Order Comment: Speci men Type: BLOOD SPECIMENOrdering Facility: [facility] Address: [address] [place], [place] [address] Performed By: #### 5 7021-8, 7-7 ####[facility] LABCLIA [id number] [place] [address] [place] Immature granulocytes/100 WBC (Bld) 1.2 % Normal [facility] Comment on above: Order Comment: Speci men Type: BLOOD SPECIMENOrdering Facility: [facility] Address: [address] [place], [place] [address] Performed By: #### 5 7021-8, 7-7 ####[facility] LABCLIA [id number] [place] [address] [place] Lymphocytes (Bld) [#/Vol] 1.81 10*3/uL Normal 1.00-4.00 [facility] Comment on above: Order Comment: Speci men Type: BLOOD SPECIMENOrdering Facility: [facility] Address: [address] [place] [address] Performed By: #### 5 7021-8, 4536-7 ####[facility] LABCLIA [id number] [address] STATES [facility] Lymphocytes/100 WBC (Bld) 9.3 % Normal [facility] Comment on above: Order Comment: Speci men Type: BLOOD SPECIMENOrdering Facility: [facility] Address: [address] [place] [address] Performed By: #### 5 7021-8, 7 ####[facility] LABCLIA [id number] [place] [address] [place] MCH (RBC) [Entitic mass] 30.8 pg Normal 26.0-34.0 [facility] Comment on above: Order Comment: Speci men Type: BLOOD SPECIMENOrdering Facility: [facility] Address: [address] [place], [place] [address] Performed By: #### 5 7021-8, 7 ####[facility] LABIA [id number] [address] [place] MCHC (RBC) [Mass/Vol] 33.0 g/dL Normal 30.5-36.0 [facility] Comment on above: Order Comment: Speci men Type: BLOOD SPECIMENOrdering Facility: [facility] Address: [address] [place], [place] [address] Performed By: #### 5 7021-8, 4536-7 ####[facility] LABCLIA [id number] [address] [place] MCV (RBC) [Entitic vol] 93.2 fL Normal 80.0-100.0 [facility] Comment on above: Order Comment: Speci men Type: BLOOD SPECIMENOrdering Facility: [facility] Address: [address] Performed By: #### 5 7021-8, 4536-7 ####[facility] LABCLIA [id number] [place] [address] [place] Monocytes (Bld) [#/Vol] 1.05 10*3/uL High <0.87 [facility] Comment on above: Order Comment: Speci men Type: BLOOD SPECIMENOrdering Facility: [facility] Address: [address] Performed By: #### 5 7021-8, 4536-7 ####[facility] LABCLIA [id number] [place] [address] [place] Monocytes/100 WBC (Bld) 5.4 % Normal [facility] Comment on above: Order Comment: Speci men Type: BLOOD SPECIMENOrdering Facility: [facility] Address: [address] Performed By: #### 5 7021-8, 4536-7 ####[facility] LABIA [id number] [place] [address] [place] Neutrophils (Bld) [#/Vol] 16.19 10*3/uL High 1.45-7.50 [facility] Comment on above: Order Comment: Speci men Type: BLOOD SPECIMENOrdering Facility: [facility] Address: [address] Performed By: #### 5 7021-8, 4536-7 ####[facility] LABCLIA [id number] [place] [address] [place] Neutrophils/100 WBC (Bld) 83.6 % Normal [facility] Comment on above: Order Comment: Speci men Type: BLOOD SPECIMENOrdering Facility: [facility] Address: [address] [place], [place] [address] Performed By: #### 5 7021-8, 4536-7 ####[facility] LABCLIA [id number] [place] [address] [place] Nucleated RBC (Bld) [#/Vol] 10*3/uL Normal <0.01 [facility] Comment on above: Order Comment: Speci men Type: BLOOD SPECIMENOrdering Facility: [facility] Address: [address] [place], [place] [address] Performed By: #### 5 7021-8, 4536-7 ####[facility] LABCLIA [id number] [place] [address] [place] Nucleated RBC/100 WBC (Bld) [Ratio] 0.0 /100 WBC Normal [facility] Comment on above: Order Comment: Speci men Type: BLOOD SPECIMENOrdering Facility: [facility] Address: [address] [place], [place] [address] Performed By: #### 5 7021-8, 4536-7 ####[facility] LABCLIA [id number] [place] [address] [place] Platelet mean volume (Bld) [Entitic vol] 9.4 fL Normal 9.0-12.7 [facility] Comment on above: Order Comment: Speci men Type: BLOOD SPECIMENOrdering Facility: [facility] Address: [address] [place], [place] [address] Performed By: #### 5 7021-8, 7 ####[facility] LABCLIA [id number] [place] [address] [place] Platelets (Bld) [#/Vol] 454 10*3/uL High 150-400 [facility] Comment on above: Order Comment: Speci men Type: BLOOD SPECIMENOrdering Facility: [facility] Address: [address] [place], [place] [address] Performed By: #### 5 7021-8, 7-7 ####[facility] LABCLIA [id number] [place] [address] [place] RBC (Bld) [#/Vol] 5.00 10*6/uL Normal 3.90-5.20 [facility] Comment on above: Order Comment: Speci men Type: BLOOD SPECIMENOrdering Facility: [facility] Address: [address] [place] [address] Performed By: #### 5 7021-8, 4537-7 ####[facility] LABCLIA [id number] [place] [address] [place] WBC (Bld) [#/Vol] 19.38 10*3/uL High 3.70-11.00 [facility] Comment on above: Order Comment: Speci men Type: BLOOD SPECIMENOrdering Facility: [facility] Address: [address] [place] [address] Performed By: #### 5 7021-8, 4537-7 ####[facility] LABCLIA [id number] [address] [place] CNOVon 09-25-2022 CNOV Office Visit (DARNELL ) SHELLY WILSON ([id number]) 1955 F Date Time Provider Department 09/25/22 [...] showing osteoarthritis. Dr Lala her PCP from [facility] in [place] prescribed prednisone 40 mg/d x 5. Reduced [...] John Liz MD Referring Provider: JOHN LIZ [[id number]] Allergies As of Date: 09/25/2022 Noted Allergy Reaction CODEINE 06/27/2022 8 - GI Upset Date Reviewed: 09/25/2022 Reviewed by: Chantell Minaya (more content not included)... Normal [facility] Comprehensive metabolic 2000 panelon 09-25-2022 Albumin [Mass/Vol] 4.2 g/dL Normal 3.9-4.9 [facility] Comment on above: Order Comment: Speci men Type: BLOOD SPECIMENOrdering Facility: [facility] Address: [address] [address] Performed By: #### 2 4323-8 ####[facility] LABCLIA [id number] [place] [address] [place] ALP [Catalytic activity/Vol] 72 U/L Normal 34-123 [facility] Comment on above: Order Comment: Speci men Type: BLOOD SPECIMENOrdering Facility: [facility] Address: [address] [address] Performed By: #### 2 4323-8 ####[facility] LABCLIA [id number] [place] [address] [place] ALT [Catalytic activity/Vol] 28 U/L Normal 7-38 [facility] Comment on above: Order Comment: Speci men Type: BLOOD SPECIMENOrdering Facility: [facility] Address: [address] [address] Performed By: #### 2 4323-8 ####[facility] LABCLIA [id number] [place] [address] [place] Anion gap [Moles/Vol] 12 mmol/L Normal 9-18 [facility] Comment on above: Order Comment: Speci men Type: BLOOD SPECIMENOrdering Facility: [facility] Address: [address] [address] Performed By: #### 2 4323-8 ####[facility] LABCLIA [id number] [place] [address] [place] AST [Catalytic activity/Vol] 24 U/L Normal 13-35 [facility] Comment on above: Order Comment: Speci men Type: BLOOD SPECIMENOrdering Facility: [facility] Address: [address] [place] [address] Performed By: #### 2 4323-8 ####[facility] LABCLIA [id number] [place] [address] [place] Bilirubin [Mass/Vol] 0.4 mg/dL Normal 0.2-1.3 [facility] Comment on above: Order Comment: Speci men Type: BLOOD SPECIMENOrdering Facility: [facility] Address: [address] [place] [address] Performed By: #### 2 4323-8 ####[facility] LABCLIA [id number] [place] [address] [place] Calcium [Mass/Vol] 9.9 mg/dL Normal 8.5-10.2 [facility] Comment on above: Order Comment: Speci men Type: BLOOD SPECIMENOrdering Facility: [facility] Address: [address] [place] [address] Performed By: #### 2 4323-8 ####[facility] LABCLIA [id number] [place] [address] [place] Chloride [Moles/Vol] 102 mmol/L Normal 97-105 [facility] Comment on above: Order Comment: Speci men Type: BLOOD SPECIMENOrdering Facility: [facility] Address: [address] [place] [address] Performed By: #### 2 4323-8 ####[facility] LABCLIA [id number] [place] [address] [place] CO2 [Moles/Vol] 26 mmol/L Normal 22-30 [facility] Comment on above: Order Comment: Speci men Type: BLOOD SPECIMENOrdering Facility: [facility] Address: [address] [address] Performed By: #### 2 4323-8 ####[facility] [id number] [address] STATES OF [facility] Creatinine [Mass/Vol] 0.62 mg/dL Normal 0.58-0.96 [facility] Comment on above: Order Comment: Speci men Type: BLOOD SPECIMENOrdering Facility: [facility] Address: [address] [address] Performed By: #### 2 4323-8 ####[facility] [id number] [address] OF [facility] ESTIMATED GLOMERULAR FILTRATION RATE 98 mL/min/1.73m??? Normal >=60 [facility] Comment on above: Order Comment: Speci men Type: BLOOD SPECIMENOrdering Facility: [facility] Address: [address] [address] Result Comment: Carmen mated Glomerular Filtration Rate [...] actual GFR. Performed By: #### 2 4323-8 ####[facility] [id number] [place] [address] [place] Glucose [Mass/Vol] 101 mg/dL High 74-99 [facility] Comment on above: Order Comment: Roberti men Type: BLOOD SPECIMENOrdering Facility: [facility] Address: [address] [place] [address] Result Comment: The [place] [employer] (ADA) provides guidance for cutoff [...] Standards of Medical Care in Diabetes 2016, [place] [employer]. Diabetes Care. 2016.39(Suppl 1). Performed By: #### 2 4323-8 ####[facility] LABCLIA [id number] [place] [address] [place] Potassium [Moles/Vol] 4.6 mmol/L Normal 3.7-5.1 [facility] Comment on above: Order Comment: Speci men Type: BLOOD SPECIMENOrdering Facility: [facility] Address: [address] [place] [address] Performed By: #### 2 4323-8 ####[facility] LABIA [id number] [place] [address] [place] Protein [Mass/Vol] 6.8 g/dL Normal 6.3-8.0 [facility] Comment on above: Order Comment: Roberti men Type: BLOOD SPECIMENOrdering Facility: [facility] Address: [address] [address] Performed By: #### 2 4323-8 ####[facility] LABIA [id number] [place] [address] [place] Sodium [Moles/Vol] 140 mmol/L Normal 136-144 [facility] Comment on above: Order Comment: Speci men Type: BLOOD SPECIMENOrdering Facility: [facility] Address: [address] [address] Performed By: #### 2 4323-8 ####[facility] LABCLIA [id number] [place] [address] [place] Urea nitrogen [Mass/Vol] 15 mg/dL Normal 7-21 [facility] Comment on above: Order Comment: Speci men Type: BLOOD SPECIMENOrdering Facility: [facility] Address: [address] [place] [address] Performed By: #### 2 4323-8 ####[facility] LABCLIA [id number] [address] OF [facility] ESR Westergren method (Bld) [Velocity]on 09-25-2022 ESR (Bld) [Velocity] 15 mm/h Normal 0-20 [facility] Comment on above: Order Comment: Speci men Type: BLOOD SPECIMENOrdering Facility: [facility] Address: [address] [place] [address] Performed By: #### 5 7021-8, 4537-7 ####[facility] LABCLIA [id number] [address] OF [facility] CBC W Auto Differential pane l (Bld)on 08-06-2022 Basophils (Bld) [#/Vol] 0.11 10*3/uL High <0.11 [facility] Comment on above: Order Comment: Speci men Type: BLOOD SPECIMENOrdering Facility: [facility] Address: [address] [place] [address] Performed By: #### 5 7021-8 ####[facility] LABCLIA [id number] [place] [address] Basophils/100 WBC (Bld) 0.6 % Normal [facility] Comment on above: Order Comment: Speci men Type: BLOOD SPECIMENOrdering Facility: [facility] Address: [address] [place] [address] Performed By: #### 5 7021-8 ####[facility] LABCLIA [id number] [place] [address] Differential cell count method Nom (Bld) Auto Normal [facility] Comment on above: Order Comment: Speci men Type: BLOOD SPECIMENOrdering Facility: [facility] Address: [address] [address] Performed By: #### 5 7021-8 ####[facility] LABCLIA [id number] [place] [address] Eosinophils (Bld) [#/Vol] 0.09 10*3/uL Normal <0.46 [facility] Comment on above: Order Comment: Speci men Type: BLOOD SPECIMENOrdering Facility: [facility] Address: [address] [address] Performed By: #### 5 7021-8 ####[facility] LABCLIA [id number] [place] [address] Eosinophils/100 WBC (Bld) 0.5 % Normal [facility] Comment on above: Order Comment: Speci men Type: BLOOD SPECIMENOrdering Facility: [facility] Address: [address] [place] [address] Performed By: #### 5 7021-8 ####[facility] LABCLIA [id number] [place] [address] Erythrocyte distribution width (RBC) [Ratio] 13.5 % Normal 11.5-15.0 [facility] Comment on above: Order Comment: Speci men Type: BLOOD SPECIMENOrdering Facility: [facility] Address: [address] [place] [address] Performed By: #### 5 7021-8 ####[facility] LABCLIA [id number] [place] [address] Hematocrit (Bld) [Volume fraction] 43.1 % Normal 36.0-46.0 [facility] Comment on above: Order Comment: Speci men Type: BLOOD SPECIMENOrdering Facility: [facility] Address: [address] [place] [address] Performed By: #### 5 7021-8 ####[facility] LABCLIA [id number] [place] [address] Hemoglobin (Bld) [Mass/Vol] 14.2 g/dL Normal 11.5-15.5 [facility] Comment on above: Order Comment: Speci men Type: BLOOD SPECIMENOrdering Facility: [facility] Address: [address] [place] [address] Performed By: #### 5 7021-8 ####[facility] LABCLIA [id number] [place] [address] Immature granulocytes (Bld) [#/Vol] 0.20 10*3/uL High <0.10 [facility] Comment on above: Order Comment: Speci men Type: BLOOD SPECIMENOrdering Facility: [facility] Address: [address] [place] [address] Performed By: #### 5 7021-8 ####[facility] LABCLIA [id number] [place] [address] Immature granulocytes/100 WBC (Bld) 1.1 % Normal [facility] Comment on above: Order Comment: Speci men Type: BLOOD SPECIMENOrdering Facility: [facility] Address: [address] [place] [address] Performed By: #### 5 7021-8 ####[facility] LABCLIA [id number] [place] [address] Lymphocytes (Bld) [#/Vol] 2.21 10*3/uL Normal 1.00-4.00 [facility] Comment on above: Order Comment: Speci men Type: BLOOD SPECIMENOrdering Facility: [facility] Address: [address] [place] [address] Performed By: #### 5 7021-8 ####[facility] LABCLIA [id number] [place] [address] Lymphocytes/100 WBC (Bld) 12.5 % Normal [facility] Comment on above: Order Comment: Speci men Type: BLOOD SPECIMENOrdering Facility: [facility] Address: [address] [place] [address] Performed By: #### 5 7021-8 ####[facility] LABCLIA [id number] [place] [address] MCH (RBC) [Entitic mass] 29.7 pg Normal 26.0-34.0 [facility] Comment on above: Order Comment: Speci men Type: BLOOD SPECIMENOrdering Facility: [facility] Address: [address] [place] [address] Performed By: #### 5 7021-8 ####[facility] LABCLIA [id number] [place] [address] MCHC (RBC) [Mass/Vol] 32.9 g/dL Normal 30.5-36.0 [facility] Comment on above: Order Comment: Speci men Type: BLOOD SPECIMENOrdering Facility: [facility] Address: [address] [place] [address] Performed By: #### 5 7021-8 ####[facility] LABIA [id number] [place] [address] MCV (RBC) [Entitic vol] 90.2 fL Normal 80.0-100.0 [facility] Comment on above: Order Comment: Speci men Type: BLOOD SPECIMENOrdering Facility: [facility] Address: [address] [place] [address] Performed By: #### 5 7021-8 ####[facility] LABCLIA [id number] [place] [address] Monocytes (Bld) [#/Vol] 1.36 10*3/uL High <0.87 [facility] Comment on above: Order Comment: Speci men Type: BLOOD SPECIMENOrdering Facility: [facility] Address: [address] [place] [address] Performed By: #### 5 7021-8 ####[facility] LABCLIA [id number] [place] [address] Monocytes/100 WBC (Bld) 7.7 % Normal [facility] Comment on above: Order Comment: Speci men Type: BLOOD SPECIMENOrdering Facility: [facility] Address: [address] [address] Performed By: #### 5 7021-8 ####[facility] LABCLIA [id number] [place] [address] Neutrophils (Bld) [#/Vol] 13.72 10*3/uL High 1.45-7.50 [facility] Comment on above: Order Comment: Speci men Type: BLOOD SPECIMENOrdering Facility: [facility] Address: [address] [address] Performed By: #### 5 7021-8 ####[facility] LABCLIA [id number] [place] [address] Neutrophils/100 WBC (Bld) 77.6 % Normal [facility] Comment on above: Order Comment: Speci men Type: BLOOD SPECIMENOrdering Facility: [facility] Address: [address] [address] Performed By: #### 5 7021-8 ####[facility] LABCLIA [id number] [place] [address] Nucleated RBC (Bld) [#/Vol] 10*3/uL Normal <0.01 [facility] Comment on above: Order Comment: Speci men Type: BLOOD SPECIMENOrdering Facility: [facility] Address: [address] [address] Performed By: #### 5 7021-8 ####[facility] LABCLIA [id number] [place] [address] Nucleated RBC/100 WBC (Bld) [Ratio] 0.0 /100 WBC Normal [facility] Comment on above: Order Comment: Speci men Type: BLOOD SPECIMENOrdering Facility: [facility] Address: [address] [address] Performed By: #### 5 7021-8 ####[facility] LABCLIA [id number] [place] [address] Platelet mean volume (Bld) [Entitic vol] 8.3 fL Low 9.0-12.7 [facility] Comment on above: Order Comment: Speci men Type: BLOOD SPECIMENOrdering Facility: [facility] Address: [address] [place] [address] Performed By: #### 5 7021-8 ####[facility] LABCLIA [id number] [place] [address] Platelets (Bld) [#/Vol] 431 10*3/uL High 150-400 [facility] Comment on above: Order Comment: Speci men Type: BLOOD SPECIMENOrdering Facility: [facility] Address: [address] [place] [address] Performed By: #### 5 7021-8 ####[facility] LABIA [id number] [place] [address] RBC (Bld) [#/Vol] 4.78 10*6/uL Normal 3.90-5.20 [facility] Comment on above: Order Comment: Speci men Type: BLOOD SPECIMENOrdering Facility: [facility] Address: [address] [place] [address] Performed By: #### 5 7021-8 ####[facility] LABIA [id number] [place] [address] WBC (Bld) [#/Vol] 17.69 10*3/uL High 3.70-11.00 [facility] Comment on above: Order Comment: Speci men Type: BLOOD SPECIMENOrdering Facility: [facility] Address: [address] [place] [address] Performed By: #### 5 7021-8 ####[facility] LABCLIA [id number] [place] [address] Comprehensive metabolic 2000 panelon 08-06-2022 Albumin [Mass/Vol] 4.0 g/dL Normal 3.9-4.9 [facility] Comment on above: Order Comment: Speci men Type: BLOOD SPECIMENOrdering Facility: [facility] Address: [address] [place] [address] Performed By: #### 2 4323-8 ####[facility] LABCLIA [id number] [place] [address] ALP [Catalytic activity/Vol] 68 U/L Normal 34-123 [facility] Comment on above: Order Comment: Speci men Type: BLOOD SPECIMENOrdering Facility: [facility] Address: [address] [address] Performed By: #### 2 4323-8 ####[facility] LABCLIA [id number] [place] [address] ALT [Catalytic activity/Vol] 16 U/L Normal 7-38 [facility] Comment on above: Order Comment: Speci men Type: BLOOD SPECIMENOrdering Facility: [facility] Address: [address] [address] Performed By: #### 2 4323-8 ####[facility] LABCLIA [id number] [place] [address] Anion gap [Moles/Vol] 7 mmol/L Low 9-18 [facility] Comment on above: Order Comment: Speci men Type: BLOOD SPECIMENOrdering Facility: [facility] Address: [address] [address] Performed By: #### 2 4323-8 ####[facility] LABCLIA [id number] [place] [address] AST [Catalytic activity/Vol] 16 U/L Normal 13-35 [facility] Comment on above: Order Comment: Speci men Type: BLOOD SPECIMENOrdering Facility: [facility] Address: [address] [address] Performed By: #### 2 4323-8 ####[facility] LABCLIA [id number] [place] [address] Bilirubin [Mass/Vol] 0.4 mg/dL Normal 0.2-1.3 [facility] Comment on above: Order Comment: Speci men Type: BLOOD SPECIMENOrdering Facility: [facility] Address: [address] [place] [address] Performed By: #### 2 4323-8 ####[facility] LABCLIA [id number] [place] [address] Calcium [Mass/Vol] 9.8 mg/dL Normal 8.5-10.2 [facility] Comment on above: Order Comment: Speci men Type: BLOOD SPECIMENOrdering Facility: [facility] Address: [address] [place] [address] Performed By: #### 2 4323-8 ####[facility] LABCLIA [id number] [place] [address] Chloride [Moles/Vol] 102 mmol/L Normal 97-105 [facility] Comment on above: Order Comment: Speci men Type: BLOOD SPECIMENOrdering Facility: [facility] Address: [address] [place] [address] Performed By: #### 2 4323-8 ####[facility] LABCLIA [id number] [place] [address] CO2 [Moles/Vol] 28 mmol/L Normal 22-30 [facility] Comment on above: Order Comment: Speci men Type: BLOOD SPECIMENOrdering Facility: [facility] Address: [address] [place] [address] Performed By: #### 2 4323-8 ####[facility] LABCLIA [id number] [place] [address] Creatinine [Mass/Vol] 0.66 mg/dL Normal 0.58-0.96 [facility] Comment on above: Order Comment: Speci men Type: BLOOD SPECIMENOrdering Facility: [facility] Address: [address] [address] Performed By: #### 2 4323-8 ####[facility] LABCLIA [id number] [place] [address] ESTIMATED GLOMERULAR FILTRATION RATE 97 mL/min/1.73m??? Normal >=60 [facility] Comment on above: Order Comment: Speci men Type: BLOOD SPECIMENOrdering Facility: [facility] Address: [address] [place] [address] Result Comment: Carmen mated Glomerular Filtration Rate [...] actual GFR. Performed By: #### 2 4323-8 ####[facility] LABCLIA [id number] [place] [address] Glucose [Mass/Vol] 118 mg/dL High 74-99 [facility] Comment on above: Order Comment: Speci men Type: BLOOD SPECIMENOrdering Facility: [facility] Address: [address] [place] [address] Result Comment: The [place] [employer] (ADA) provides guidance for cutoff [...] Standards of Medical Care in Diabetes 2016, [place] [employer]. Diabetes Care. 2016.39(Suppl 1). Performed By: #### 2 4323-8 ####[facility] LABCLIA [id number] [place] [address] Potassium [Moles/Vol] 4.3 mmol/L Normal 3.7-5.1 [facility] Comment on above: Order Comment: Speci men Type: BLOOD SPECIMENOrdering Facility: [facility] Address: [address] [place] [address] Performed By: #### 2 4323-8 ####[facility] LABCLIA [id number] [place] [address] Protein [Mass/Vol] 6.6 g/dL Normal 6.3-8.0 [facility] Comment on above: Order Comment: Speci men Type: BLOOD SPECIMENOrdering Facility: [facility] Address: [address] [place] [address] Performed By: #### 2 4323-8 ####[facility] LABCLIA [id number] [place] [address] Sodium [Moles/Vol] 137 mmol/L Normal 136-144 [facility] Comment on above: Order Comment: Speci men Type: BLOOD SPECIMENOrdering Facility: [facility] Address: [address] [place] [address] Performed By: #### 2 4323-8 ####[facility] LABCLIA [id number] [place] [address] Urea nitrogen [Mass/Vol] 16 mg/dL Normal 7-21 [facility] Comment on above: Order Comment: Speci men Type: BLOOD SPECIMENOrdering Facility: [facility] Address: [address] [place] [address] Performed By: #### 2 4323-8 ####[facility] LABIA [id number] [place] [address] ESR Westergren method (Bld) [Velocity]on 08-06-2022 ESR (Bld) [Velocity] 18 mm/h Normal 0-20 [facility] Comment on above: Order Comment: Speci men Type: BLOOD SPECIMENOrdering Facility: [facility] Address: [address] [place] [address] Performed By: #### 4 537-7 ####[facility] LABCLIA [id number] [address] HBV core Ab Ser Qlon 023 HBV core Ab Ql (S) Negative Normal Negative [facility] Comment on above: Order Comment: Speci men Type: BLOOD SPECIMENOrdering Facility: [facility] Address: [address] [place] [address] Result Comment: No e vidence of current or past infection with Hepatitis B virus. Should recent infection be suspected, repeat testing may be considered 3-4 weeks after this draw. Performed By: #### 1 6933-4, 5-3, 86982-2 ####[facility] LABCLIA [id number] [address] HBV surface Ab Ql (S)on 07-19 HBV surface Ab Qn (S) <8.00 Low >=12.00 [facility] Comment on above: Order Comment: Speci men Type: BLOOD SPECIMENOrdering Facility: [facility] Address: [address] [place] [address] Performed By: #### 1 6933-4, 5-3, 22096-1 ####[facility] LABCLIA [id number] [address] [place] HBV surface Ab Ser Qlon 07-19 HBV surface Ab Ql (S) Negative Abnormal Positive [facility] Comment on above: Order Comment: Speci men Type: BLOOD SPECIMENOrdering Facility: [facility] Address: [address] [place] [address] Result Comment: No e vidence of antibodies to Hepatitis B surface antigen. Performed By: #### 1 6933-4, 5195-3, 97646-4 ####[facility] LABCLIA [id number] [address] [place] HBV surface Ag Ser Qlon 07-19 HBV surface Ag Ql (S) Negative Normal Negative [facility] Comment on above: Order Comment: Speci men Type: BLOOD SPECIMENOrdering Facility: [facility] Address: [address] [place] [address] Performed By: #### 1 6933-4, 5195-3, 78979-0 ####[facility] LABIA [id number] [address] HCV Ab Ser Qlon 08-06-2022 HCV Ab Ql (S) Negative Normal Negative [facility] Comment on above: Order Comment: Speci men Type: BLOOD SPECIMENOrdering Facility: [facility] Address: [address] [place] [address] Result Comment: The result suggests no evidence of active infection with Hepatitis C virus. Should recent infection be suspected, repeat testing may be considered 4-6 weeks after this draw. Performed By: #### 1 6128-1 ####[facility] LABCLIA [id number] [address] OF [facility] Workers' Comp Officeon 07-26 Workers' Comp Office [id number]#1. 00CD:127 Normal [facility] CNOVon 06-27-2022 CNOV Office Visit (DERMMN ) SHELLY WILSON ([id number]) 1955 F Date Time Provider Department 06/27/22 [...] Lymph 1.00 - 4.00 k/uL 4.49 (H) Faulk% % 7.0 Abs Faulk <0.87 k/uL 1.50 (H) Eosin% % 0.0 [...] skin folds (more content not included)... Normal [facility] Consultation Noteon 06-28-19 Consultation Note Chief [...] after the procedure for repeat evaluation. 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 She said please send Rx to [facility] pharmacy in [place], [place] on [address] [facility]. She also notes that her hands are stiff and swollen again. She stopped prednisone Friday (she is out of pills) and the stiffness and swelling came back this morning. Also - she made an appointment to see Derm at [facility]. Her appointment is tomorrow 06/27. John [...] 2 CBC + DIFF [SQCBCDIF] Order #: [id number] FUTURE COMP METABOLIC PANEL [SQCMP] Order #: [id number] FUTURE SED RATE WESTERGREN [SQWSR] Order #: [id number] FUTURE HEP REMOTE PANEL BL [SQHREMOP] Order #: [id number] FUTURE Prescriptions as of 06/26/2022 - methotrexate [...] Number: 76 (more content not included)... Normal [facility] Consent for Treatmenton 06-17 Consent for Treatment [id number]#1. 00CD:127 Normal [facility] Office/Clinic Note-Physician on 06-26-2022 Office/Clinic Note-Physician [id number]#1.0 0CD:127 Normal [facility] Patient Correspondenceon Patient Correspondence [id number]#1.0 0CD:127 Normal [facility] Patient Correspondence [id number]#1.0 0CD:127 Normal [facility] Patient History Officeon Patient History Office [id number]#1.0 0CD:127 Normal [facility] ESR Westergren method (Bld) [Velocity]on 06-25-2022 ESR (Bld) [Velocity] 21 mm/h High 0 - 20 mm/hr [facility] CBC W Auto Differential pane l (Bld)on 06-24-2022 Basophils (Bld) [#/Vol] 0.21 10*3/uL High <0.11 [facility] Comment on above: Order Comment: Speci men Type: BLOOD SPECIMENOrdering Facility: [facility] Address: [address] [place] [id number] Performed By: #### 5 7021-8, 4536-08 ####[facility] LABCLIA [id number] [place] [address] [place] Basophils/100 WBC (Bld) 1.0 % Normal [facility] Comment on above: Order Comment: Speci men Type: BLOOD SPECIMENOrdering Facility: [facility] Address: [address] [place] [address] Performed By: #### 5 7021-8, 7 ####[facility] LABCLIA [id number] [place] [address] [place] Differential cell count method Nom (Bld) Manual Normal [facility] Comment on above: Order Comment: Speci men Type: BLOOD SPECIMENOrdering Facility: [facility] Address: [address] [place] [address] Performed By: #### 5 7021-8, 7 ####[facility] LABCLIA [id number] [place] [address] [place] Eosinophils (Bld) [#/Vol] 0.00 10*3/uL Normal <0.46 [facility] Comment on above: Order Comment: Speci men Type: BLOOD SPECIMENOrdering Facility: [facility] Address: [address] [place] [address] Performed By: #### 5 7021-8, 7 ####[facility] LABCLIA [id number] [address] [place] Eosinophils/100 WBC (Bld) 0.0 % Normal [facility] Comment on above: Order Comment: Speci men Type: BLOOD SPECIMENOrdering Facility: [facility] Address: [address] [place], [place] [address] Performed By: #### 5 7021-8, 4536-7 ####[facility] LABCLIA [id number] [place] [address] [place] Erythrocyte distribution width (RBC) [Ratio] 12.4 % Normal 11.5-15.0 [facility] Comment on above: Order Comment: Speci men Type: BLOOD SPECIMENOrdering Facility: [facility] Address: [address] [place], [place] [address] Performed By: #### 5 7021-8, 4537-7 ####[facility] LABCLIA [id number] [place] [address] [place] Hematocrit (Bld) [Volume fraction] 42.2 % Normal 36.0-46.0 [facility] Comment on above: Order Comment: Speci men Type: BLOOD SPECIMENOrdering Facility: [facility] Address: [address] [place], [place] [address] Performed By: #### 5 7021-8, 4537-7 ####[facility] LABCLIA [id number] [place] [address] [place] Hemoglobin (Bld) [Mass/Vol] 14.5 g/dL Normal 11.5-15.5 [facility] Comment on above: Order Comment: Speci men Type: BLOOD SPECIMENOrdering Facility: [facility] Address: [address] [place], [place] [address] Performed By: #### 5 7021-8, 7-7 ####[facility] LABCLIA [id number] [place] [address] [place] Lymphocytes (Bld) [#/Vol] 4.49 10*3/uL High 1.00-4.00 [facility] Comment on above: Order Comment: Speci men Type: BLOOD SPECIMENOrdering Facility: [facility] Address: [address] [place], [place] [address] Performed By: #### 5 7021-8, 7-7 ####[facility] LABCLIA [id number] [place] [address] [place] Lymphocytes/100 WBC (Bld) 21.0 % Normal [facility] Comment on above: Order Comment: Speci men Type: BLOOD SPECIMENOrdering Facility: [facility] Address: [address] [place] [address] Performed By: #### 5 7021-8, 4537-7 ####[facility] LABCLIA [id number] [address] [place] MCH (RBC) [Entitic mass] 30.9 pg Normal 26.0-34.0 [facility] Comment on above: Order Comment: Speci men Type: BLOOD SPECIMENOrdering Facility: [facility] Address: [address] [place] [address] Performed By: #### 5 7021-8, 453-7 ####[facility] LABIA [id number] [address] [place] MCHC (RBC) [Mass/Vol] 34.4 g/dL Normal 30.5-36.0 [facility] Comment on above: Order Comment: Speci men Type: BLOOD SPECIMENOrdering Facility: [facility] Address: [address] [place] [address] Performed By: #### 5 7021-8, 4536-7 ####[facility] LABIA [id number] [place] [address] [place] MCV (RBC) [Entitic vol] 90.0 fL Normal 80.0-100.0 [facility] Comment on above: Order Comment: Speci men Type: BLOOD SPECIMENOrdering Facility: [facility] Address: [address] [place], [place] [address] Performed By: #### 5 7021-8, 4537-7 ####[facility] LABIA [id number] [place] [address] [place] Monocytes (Bld) [#/Vol] 1.50 10*3/uL High <0.87 [facility] Comment on above: Order Comment: Speci men Type: BLOOD SPECIMENOrdering Facility: [facility] Address: [address] [place], [place] [address] Performed By: #### 5 7021-8, 7 ####[facility] LABCLIA [id number] [place] [address] [place] Monocytes/100 WBC (Bld) 7.0 % Normal [facility] Comment on above: Order Comment: Speci men Type: BLOOD SPECIMENOrdering Facility: [facility] Address: [address] [place], [place] [address] Performed By: #### 5 7021-8, 4536-08 ####[facility] LABCLIA [id number] [place] [address] [place] MYELO% 1.0 % Normal [facility] Comment on above: Order Comment: Speci men Type: BLOOD SPECIMENOrdering Facility: [facility] Address: [address] [place], [place] [address] Performed By: #### 5 7021-8, 4536-08 ####[facility] LABCLIA [id number] [place] [address] [place] Neutrophils (Bld) [#/Vol] 14.95 10*3/uL High 1.45-7.50 [facility] Comment on above: Order Comment: Speci men Type: BLOOD SPECIMENOrdering Facility: [facility] Address: [address] [place], [place] [address] Performed By: #### 5 7021-8, 4536-08 ####[facility] LABCLIA [id number] [place] [address] [place] Neutrophils/100 WBC (Bld) 70.0 % Normal [facility] Comment on above: Order Comment: Speci men Type: BLOOD SPECIMENOrdering Facility: [facility] Address: [address] [place], [place] [address] Performed By: #### 5 7021-8, 4536- ####[facility] LABCLIA [id number] [place] [address] [place] Nucleated RBC (Bld) [#/Vol] 10*3/uL Normal <0.01 [facility] Comment on above: Order Comment: Speci men Type: BLOOD SPECIMENOrdering Facility: [facility] Address: [address] [place], [place] [address] Performed By: #### 5 7021-8, 4536-7 ####[facility] LABIA [id number] [place] [address] [place] Nucleated RBC/100 WBC (Bld) [Ratio] 0.0 /100 WBC Normal [facility] Comment on above: Order Comment: Speci men Type: BLOOD SPECIMENOrdering Facility: [facility] Address: [address] [place], [place] [address] Performed By: #### 5 7021-8, 4536-7 ####[facility] LABIA [id number] [place] [address] [place] Platelet mean volume (Bld) [Entitic vol] 8.6 fL Low 9.0-12.7 [facility] Comment on above: Order Comment: Speci men Type: BLOOD SPECIMENOrdering Facility: [facility] Address: [address] [place], [place] [address] Performed By: #### 5 7021-8, 4536-7 ####[facility] LABIA [id number] [place] [address] [place] Platelets (Bld) [#/Vol] 465 10*3/uL High 150-400 [facility] Comment on above: Order Comment: Speci men Type: BLOOD SPECIMENOrdering Facility: [facility] Address: [address] [place], [place] [address] Performed By: #### 5 7021-8, 4536-7 ####[facility] LABCLIA [id number] [place] [address] [place] Platelets Estimate (Bld) [#/Vol] Increased Normal [facility] Comment on above: Order Comment: Speci men Type: BLOOD SPECIMENOrdering Facility: [facility] Address: [address] [place], [place] [address] Performed By: #### 5 7021-8, 4536-7 ####[facility] LABCLIA [id number] [place] [address] [place] Polychromasia LM Ql (Bld) Slight Normal [facility] Comment on above: Order Comment: Speci men Type: BLOOD SPECIMENOrdering Facility: [facility] Address: [address] [place], [place] [address] Performed By: #### 5 7021-8, 4536-7 ####[facility] LABCLIA [id number] [place] [address] [place] RBC (Bld) [#/Vol] 4.69 10*6/uL Normal 3.90-5.20 [facility] Comment on above: Order Comment: Speci men Type: BLOOD SPECIMENOrdering Facility: [facility] Address: [address] [place], [place] [address] Performed By: #### 5 7021-8, 4536-7 ####[facility] LABCLIA [id number] [place] [address] [place] RED CELL MORPH Reviewed: unremarkable Normal [facility] Comment on above: Order Comment: Speci men Type: BLOOD SPECIMENOrdering Facility: [facility] Address: [address] [place], [place] [address] Performed By: #### 5 7021-8, 4536-7 ####[facility] LABCLIA [id number] [place] [address] [place] WBC (Bld) [#/Vol] 21.36 10*3/uL High 3.70-11.00 [facility] Comment on above: Order Comment: Speci men Type: BLOOD SPECIMENOrdering Facility: [facility] Address: [address] [address] Performed By: #### 5 7021-8, 4537-7 ####[facility] LABCLIA [id number] [address] WBC Left Shift Ql (Bld) Present Normal [facility] Comment on above: Order Comment: Speci men Type: BLOOD SPECIMENOrdering Facility: [facility] Address: [address] [address] Performed By: #### 5 7021-8, 4537-7 ####[facility] LABIA [id number] [address] [place] CK SerPl-cCncon 06-24-2022 CK [Catalytic activity/Vol] 37 U/L Low 42-196 [facility] Comment on above: Order Comment: Speci men Type: BLOOD SPECIMENOrdering Facility: [facility] Address: [address] [place] [address] Performed By: #### 2 157-6, 26033-9, 51571-4, 3084-1 ####[facility] LABIA [id number] [address] OF [facility] CNOVon 06-24-2022 CNOV Office Visit (DARNELL ) SHELLY WLISON ([id number]) 1955 F Date Time Provider Department 06/24/22 [...] showing osteoarthritis. Dr Lala her PCP from [facility] in [place] prescribed prednisone 40 mg/d x 5. Reduced [...] Rv 3 (more content not included)... Normal [facility] CRP SerPl-mCncon 06-24-2022 CRP [Mass/Vol] 0.5 mg/dL Normal <0.9 [facility] Comment on above: Order Comment: Speci men Type: BLOOD SPECIMENOrdering Facility: [facility] Address: [address] [place] [address] Performed By: #### 1 988-5, 2885-2 ####[facility] LABCLIA [id number] [place] [address] [place] Comprehensive metabolic 2000 panelon 06-24-2022 Albumin [Mass/Vol] 4.0 g/dL Normal 3.9-4.9 [facility] Comment on above: Order Comment: Speci men Type: BLOOD SPECIMENOrdering Facility: [facility] Address: [address] [place] [address] Performed By: #### 2 157-6, 42871-5, 29266-2, 3084-1 ####[facility] LABCLIA [id number] [place] [address] [place] ALP [Catalytic activity/Vol] 75 U/L Normal 34-123 [facility] Comment on above: Order Comment: Speci men Type: BLOOD SPECIMENOrdering Facility: [facility] Address: [address] [place] [address] Performed By: #### 2 157-6, 87156-3, 07103-5, 3084-1 ####[facility] LABCLIA [id number] [address] [place] ALT [Catalytic activity/Vol] 21 U/L Normal 7-38 [facility] Comment on above: Order Comment: Speci men Type: BLOOD SPECIMENOrdering Facility: [facility] Address: [address] [place] [address] Performed By: #### 2 157-6, 62098-4, 84292-3, 3084-1 ####[facility] LABCLIA [id number] [address] [address] [place] Anion gap [Moles/Vol] 13 mmol/L Normal 9-18 [facility] Comment on above: Order Comment: Speci men Type: BLOOD SPECIMENOrdering Facility: [facility] Address: [address] [place] [address] Performed By: #### 2 157-6, 67199-0, 19915-9, 3083- ####[facility] LABCLIA [id number] [address] [address] [place] AST [Catalytic activity/Vol] 15 U/L Normal 13-35 [facility] Comment on above: Order Comment: Speci men Type: BLOOD SPECIMENOrdering Facility: [facility] Address: [address] [place] [address] Performed By: #### 2 157-6, 00319-1, 68391-5, 3083- ####[facility] LABCLIA [id number] [address] [address] [place] Bilirubin [Mass/Vol] 0.3 mg/dL Normal 0.2-1.3 [facility] Comment on above: Order Comment: Speci men Type: BLOOD SPECIMENOrdering Facility: [facility] Address: [address] [place], [place] [address] Performed By: #### 2 157-6, 13106-2, 31927-9, 3083- ####[facility] LABCLIA [id number] [address] [address] [place] Calcium [Mass/Vol] 9.8 mg/dL Normal 8.5-10.2 [facility] Comment on above: Order Comment: Speci men Type: BLOOD SPECIMENOrdering Facility: [facility] Address: [address] [place], [place] [address] Performed By: #### 2 157-6, 16778-9, 84076-8, 3083 ####[facility] LABCLIA [id number] [place] [address] [place] Chloride [Moles/Vol] 100 mmol/L Normal 97-105 [facility] Comment on above: Order Comment: Speci men Type: BLOOD SPECIMENOrdering Facility: [facility] Address: [address] [place] [address] Performed By: #### 2 157-6, 49244-0, 14318-3, [facility]4 ####[facility] LABCLIA [id number] [place] [address] [place] CO2 [Moles/Vol] 25 mmol/L Normal 22-30 [facility] Comment on above: Order Comment: Speci men Type: BLOOD SPECIMENOrdering Facility: [facility] Address: [address] [place] [address] Performed By: #### 2 157-6, 43947-8, 03561-4, [facility] ####[facility] LABIA [id number] [place] [address] [place] Creatinine [Mass/Vol] 0.71 mg/dL Normal 0.58-0.96 [facility] Comment on above: Order Comment: Speci men Type: BLOOD SPECIMENOrdering Facility: [facility] Address: [address] [place] [address] Performed By: #### 2 157-6, 85646-3, 89142-8, [facility]4 ####[facility] LABIA [id number] [place] [address] [place] ESTIMATED GLOMERULAR FILTRATION RATE 94 mL/min/1.73m??? Normal >=60 [facility] Comment on above: Order Comment: Speci men Type: BLOOD SPECIMENOrdering Facility: [facility] Address: [address] [place] [address] Result Comment: Carmen mated Glomerular Filtration Rate [...] actual GFR. Performed By: #### 2 157-6, 89526-7, 11649-2, 3084-1 ####[facility] LABCLIA [id number] [place] [address] [place] Glucose [Mass/Vol] 62 mg/dL Low 74-99 [facility] Comment on above: Order Comment: Tam purvis Type: BLOOD SPECIMENOrdering Facility: [facility] Address: [address] [place] [address] Result Comment: The [place] [employer] (ADA) provides guidance for cutoff [...] Standards of Medical Care in Diabetes 2016, [place] [employer]. Diabetes Care. 2016.39(Suppl 1). Performed By: #### 2 157-6, 28038-8, 54947-7, 3083- ####[facility] LABCLIA [id number] [place] [address] [place] Potassium [Moles/Vol] 4.2 mmol/L Normal 3.7-5.1 [facility] Comment on above: Order Comment: Tam purvis Type: BLOOD SPECIMENOrdering Facility: [facility] Address: [address] [id number] Performed By: #### 2 157-6, 17064-3, 91968-8, 3084-1 ####[facility] LABCLIA [id number] [address] [address] [place] Protein [Mass/Vol] 6.8 g/dL Normal 6.3-8.0 [facility] Comment on above: Order Comment: Speci men Type: BLOOD SPECIMENOrdering Facility: [facility] Address: [address] [place] [address] Performed By: #### 2 157-6, 21495-5, 34874-2, 3084-1 ####[facility] LABCLIA [id number] [place] [address] [place] Sodium [Moles/Vol] 138 mmol/L Normal 136-144 [facility] Comment on above: Order Comment: Speci men Type: BLOOD SPECIMENOrdering Facility: [facility] Address: [address] [place] [address] Performed By: #### 2 157-6, 17573-2, 99767-3, 3084-1 ####[facility] LABCLIA [id number] [place] [address] [place] Urea nitrogen [Mass/Vol] 17 mg/dL Normal 7-21 [facility] Comment on above: Order Comment: Speci men Type: BLOOD SPECIMENOrdering Facility: [facility] Address: [address] [place] [address] Performed By: #### 2 157-6, 43773-8, 78885-8, 3084-1 ####[facility] LABCLIA [id number] [place] [address] [place] Cyclic citrullinated peptide IgG Qnon 06-24-2022 CCP ANTIBODY IGG QUALITATIVE Positive Abnormal Negative [facility] Comment on above: Order Comment: Speci men Type: BLOOD SPECIMENOrdering Facility: [facility] Address: [address] [place] [address] Performed By: #### 4 7383-5, 77429-6 ####[facility] LABCLIA [id number] [place] [address] [place] ESR Westergren method (Bld) [Velocity]on 06-24-2022 ESR (Bld) [Velocity] 21 mm/h High 0-20 [facility] Comment on above: Order Comment: Speci men Type: BLOOD SPECIMENOrdering Facility: [facility] Address: [address] [address] Performed By: #### 5 7021-8, 4537-7 ####[facility] LABIA [id number] [place] [address] [place] No Panel Informationon 06-24 [facility] Nuclear Ab IA Ql (S)on 06-24 BABATUNDE BY EIA, QUAL Negative Normal Negative [facility] Comment on above: Order Comment: Speci men Type: BLOOD SPECIMENOrdering Facility: [facility] Address: [address] [place] [address] Result Comment: The qualitative antinuclear antibody screen test performed using enzyme immunoassay including the following antigens: dsDNA, histones, SS-A, SS-B, Sm, Sm/DRAWER IN JACQUARD LOOM, Scl-70, Elham-1, and centromeric antigens. Performed By: #### 4 7383-5, 86042-2 ####[facility] LABIA [id number] [place] [address] [place] PROTEIN ELECTROPHORESIS SERU M (P)on 06-24-2022 Albumin [Mass/Vol] 3.51 g/dL Normal 3.43-5.41 [facility] Comment on above: Order Comment: Speci men Type: BLOOD SPECIMENOrdering Facility: [facility] Address: [address] [place] [address] Performed By: #### L [id number] ####[facility] LABIA [id number] [place] [address] [place] Alpha 1 globulin Elph [Mass/Vol] 0.36 g/dL Normal 0.18-0.43 [facility] Comment on above: Order Comment: Speci men Type: BLOOD SPECIMENOrdering Facility: [facility] Address: [address] [address] Performed By: #### L [id number] ####[facility] LABCLIA [id number] [address] [place] Alpha 2 globulin Elph [Mass/Vol] 1.04 g/dL High 0.42-0.98 [facility] Comment on above: Order Comment: Speci men Type: BLOOD SPECIMENOrdering Facility: [facility] Address: [address] [address] Performed By: #### L [id number] ####[facility] LABIA [id number] [address] [place] Beta globulin Elph [Mass/Vol] 0.88 g/dL Normal 0.61-1.17 [facility] Comment on above: Order Comment: Speci men Type: BLOOD SPECIMENOrdering Facility: [facility] Address: [address] [address] Performed By: #### L [id number] ####[facility] LABIA [id number] [address] [place] Gamma globulin Elph [Mass/Vol] 0.71 g/dL Normal 0.53-1.51 [facility] Comment on above: Order Comment: Speci men Type: BLOOD SPECIMENOrdering Facility: [facility] Address: [address] [place] [address] Performed By: #### L [id number] ####[facility] LABIA [id number] [place] [address] [place] M-PROTEIN LOCATION Normal [facility] Comment on above: Order Comment: Speci men Type: BLOOD SPECIMENOrdering Facility: [facility] Address: [address] [address] Result Comment: Not Applicable. Performed By: #### L [id number] ####[facility] LABIA [id number] [address] [place] Protein Fractions [Interp] No definitive M protein is identified on protein electrophoresis. Normal No definitive M protein is identified on protein electrophoresi s. [facility] Comment on above: Order Comment: Speci men Type: BLOOD SPECIMENOrdering Facility: [facility] Address: [address] [place] [address] Performed By: #### L [id number] ####[facility] LABIA [id number] [address] [place] Protein.monoclonal Elph [Mass/Vol] 0.00 g/dL Normal <=0.00 [facility] Comment on above: Order Comment: Speci men Type: BLOOD SPECIMENOrdering Facility: [facility] Address: [address] [place] [address] Performed By: #### L [id number] ####[facility] [id number] [address] SPE STAFF REVIEW Reviewed by Dr. Jacob Benitez MD [facility] Comment on above: Order Comment: Speci men Type: BLOOD SPECIMENOrdering Facility: [facility] Address: [address] [place] [address] Performed By: #### L [id number] ####[facility] LABIA [id number] [place] [address] [place] Prot SerPl-mCncon 06-24-2022 Protein [Mass/Vol] 6.5 g/dL Normal 6.3-8.0 [facility] Comment on above: Order Comment: Speci men Type: BLOOD SPECIMENOrdering Facility: [facility] Address: [address] [place] [address] Performed By: #### 1 988-5, 2885-2 ####[facility] LABIA [id number] [address] [place] Rheumatoid fact SerPl-aCncon 06-24-2022 Rheumatoid factor Qn [IU]/mL Normal <16 [facility] Comment on above: Order Comment: Speci men Type: BLOOD SPECIMENOrdering Facility: [facility] Address: [address] [place], [place] [address] Performed By: #### 2 157-6, 91778-6, 28981-6, 3084-1 ####[facility] LABCLIA [id number] [place] [id number] [facility] [place] Urate SerPl-mCncon Urate [Mass/Vol] 4.4 mg/dL Normal 2.5-6.6 [facility] Comment on above: Order Comment: Speci men Type: BLOOD SPECIMENOrdering Facility: [facility] Address: [address] [place], [place] [address] Performed By: #### 2 157-6, 28657-6, 95203-4, 3084-1 ####[facility] LABCLIA [id number] [place] [id number] [place] XR CHEST 2V [...] Exaggerated thoracic kyphosis with degenerative changes. 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 No evidence of erosions. 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 No evidence of erosions. Dockworker: RENA Transcribe Date/Time: Jun 24 2022 3:34P Dictated by : REA MILLER MD This examination was interpreted and the report reviewed and electronically signed by: REA MILLER MD on Jun 24 2022 3:36PM EST [id number] Normal [facility] cCP IgG SerPl-aCncon 023 Cyclic citrullinated peptide IgG Qn 78 Units High <20 [facility] Comment on above: Order Comment: Speci men Type: BLOOD SPECIMENOrdering Facility: [facility] Address: [address] [place] [address] Performed By: #### 4 7383-5, 41844-5 ####[facility] LABCLIA [id number] [address] OF [facility] US VENOUS DOPPLER BENJAMIN Leonard 06-19-2022 US [...] by: WADE YU Date: 2022-06-19 20:02 Normal [facility] Coding Summary.on 06-05-2022 Coding Summary. CD:[id number] Ww +PGhlYWQ+GO8FZQRhO61bz POmyZ4fA7MNYItQThidHBA NZBmMKqQooqAwMZ5dyKKhN XJu IC8+QR0iZAAmTmqpwJYym7 I0eWT5G07kmp5lLHcsaKN0 HSCiXyAsqmuiq6gtxGr7FS cuNmluOyBt WVLsmT58QON2pE99Wk44nR AngYJwv7kdjCh0PbBqEHSs PCE4qIrmAOegv5GfOWWgZ7 1mhIGnj2B8 XOSgwNockOUxNjXwsPX8vE 3bXBeyyvoal3pckygjDqt8 zu76zYGho5O6kHP0U1Gmmh L3RHVvbABh QlsntKFQeE8kaskfy5shxu saWrYoQQSsNSp2CDz5GOTu nLbuAzArER02ROL1GYCbdb UcA7BxLNLn eMgoXjY2s6C5Yf2MC1ZBLk kwV3JTVWOEXRythIZ+PC90 rn19K5YxXhrjRby5ICAqMN I7pNR4xP2m OUJiBAoaq4E5aIZ0R2Allj Xhfn8at3uyGGIgFDdoE97p tPDur0L3YTYvtGO8IJJbiG swHzZiuU01 Oyc+DWQxqPdlr9TnAasek5 knd5bmgWp2RjovYEQjtdEr eHprEXO3c9LnHt9zHZMqoS X8rNV0lK6x IgKkOuO4QQjxF898FzXybT UgHuqsR31xR5MayRD+PHRy Obh4MIJqvGxaXH6eK3WdAQ RpbmctbGVm fEkjRH7qLTGpnyoeLNWtfA 9hMXWmN4s9WyPnQcI3PFfz D4GkFCRwsmenLm17lW2tQt AdYmX1PLvv Q4TnxxR2EKBmzYNgLZkvNO P1S29fd5P3WLMdFBTtRZG5 cTI8zD0pbYkxblqmoYLcrP sgdmVydGlj RJznQMlnV667UPDseFqjHg NvZGluZyBEYXRlOiAgMDQv MTkvMjAyMzwvdGQ+PHRkIH C3mSvqIWHp xSNdXWruSb9mgZahyWqzNI 0bITFxigjcKVTvdZ1qYKQt cSSlrSpsDY6oXIQztehyj8 95SeMoDGG4 WZUkrEQkE0FomI7rPiXxDF HfKPUyK4IyvPNkMTcjF149 GYtdLsF9UUHywuWlM1XbGN FsaWduOiB0 t3S7Nj8Dn2UkelrvK4QgmI UkJqVxMkyzGPs8O2AeTfmr dHI+BY26PFIdAX18EIo7VG Q4nAzkNZja IZAqE9DojR4gUoWwUFGpXB RkOyc+PHRhYmxlIHdpZHRo IZepYJGbHeWdlDqvYB3nVw 9yZGVyLWNv cAjdyOGkXdHie2wqRFYoYX gzNW4exWyzK9JwqSZ4YQEi v9a1Zr17M14zF2HfcMJ+PG MhoXJ4nJF0 bJ4dZdWeGpO2ILouB528It AduVHwCulqf0yew6fnjCj2 WnA8FLFqcaWuuTqgLXM6s3 NiJz56Q12i IHdpZHRoPSIxNSUiIHZhbG pqje0pvJ5iJb1+PGNvbCB3 nVB7uS2bBgSiVxC3KAhwD5 49InRvcCIv Sogyx5pit2tazTi8XhHeYL JvflZnoQgyPCT7p4YaHw16 W0WpqAjsh4OjRgv0vs96gN Nmw3G7tXQ3 M6CsBQCrpsplcKEdgSifAH 2nUNOepvayYQDgqD0gZYUd Z3y0VtIkIeY8DPjxX4Styw E1EIRhgXJi EWIrhJDNgX5vmyhtl7ignh poHaViLHMpZNs5TYc2RCSv oMxfOqQwCIX3HyX7RSM7hY PplT2swYwr mxpuyM1qScj+UAK6eKAueM OQIR2pFkrivLD+PHRkIHN0 mXgvAZvvMJAgjJ6fXWTyF2 m2AfFmIdC7 JKduW8RgpkF2UFAtsXMlUW CgfMDWmL8jrwqkd0bdeaxm AjZuYNZbPAs6YDm3FYGhkC duOiBsZWZ0 TsQ3WNG8fANyhH0wmMkcqq kwyW1cLki+QmlydGggRGF0 KYv0Y9LvAek3JYVucWupRF 0ncGFkZGlu Bk5zxKusbXwoDI9sFGQebe pvw582NnFst0mqDOCiwNMl XAqoLFA5K42cw9R0BMReGR GhZMM9iQF9 sI9eoEpkbjyccSSppOvjuj PmlQfxNUagOPkiX534IRQh sZndNnBzCPi1C7ZpFlj0QS WtmRveHH2y tTRhFTapOz0efQhvhSbbCK 2pOFBvxufmw172GxFoa0hx FPNteLZlLCfpNCX4O02qq6 G8HZNvKLPc QSY0eMB2fY2iyVszrxyfsR VmdDsgdmVydGljYWwtYWxp H336MERcmIhrQdMoaCe5G6 VyJyi3TJEv yLxdAW9ifCHePBfaEq9dnZ avvYvnLZ7mMUTxocezh617 CbOhe7glUXQbzLPxIAezYO T2M22du3Q2 WOBbBEYgZLB7cRH7nG4asG lnbjogbGVmdDsgdmVydGlj YHaeSKijR201ONTsqBfqOt BhdGllbnQg CZwfDTd2I9ToKsurvWG+PC 14JPIgFC70gVQimZOvg3hr rFh9WuIiVXSbFAR6cSucJN edk7GzCTWc N47qpLVjk7G4ZIKshLoymB FuNvUinDP8lE6xNDmvrkbc r7tnyoucTvitt1pfvv61rR 17C69qEFvc ZHRoPSIzMCUiIHZhbGlnbj 6fpJ2hPm6+HXGliDY0pVO0 xM7dGDPdNpX7SIebT620Oa RvcCIvPjxj y9grv7leoGa8OjX2BIWmvj SooXmzEGK0d5UjOb02L16t IHdpZHRoPSIyMCUiIHZhbG fwdi2bsX3s Ii8+QBVlgGJ9dYH1uA1bHa CePbT0LOfsG168FmQxqYWt FnszD36rA1GseLT+PHRyPj t6ZQMzaBld UM5jrHMiCLjcBi4fTGC9Kt XkPtDcBVsgZ5BwKLTqhkap aqqfrFG3NOJtLACjeG09Re 9udDogMTBw pQPQcO6vcrtom9biybuwMx TfWCEtAPv3AQk7BOUukDhk MnUhOVS9OgE8QZK4lJDdmX 1hbGlnbjog cY7cE7FeXWYbkbvnQx37bX 7sKmDeLhF5IUtcViv+Qkla D0MVPcpnXa5LDo3wWRrnxL Q+PHRkIHN0 cFszPSrtVDWltV3dSXTkA8 d8XtWhJjY9LYklO0MuCILp evqfQs82wJ5cRoWfPpU0YR enI8UaeuN6 XDPpsITrCWvwVID7K59ed0 Z5URQwCUSvRFT3jYV0lV8d bGlnbjogbGVmdDsgdmVydG ljYWwtYWxp H806USBepYmdWgJ8OqMxDd K1NYD7E2ShYjh5HJPelNim DF2unOQuWPaiLo2kkWozwX nrLF3pWIUt dmdbZXKtoS9sAVOusIPlrN klDM1lAUSggpwls215BsMf GUF3CMXseABiF3YpnF1jRr AjMDAwMDAw T5IekMIcGSaiR501XUhtRo Z7ACFzwoJbC2PtPGNduFeh KyG0b8Q7En53HqRGDNFgkl wvdGQ+PHRk QNG2aWglXHrhZEQsmM4aXE XhW3d4DiZjTrX4CSveK9Sv NRDphmsoVs42uQ5lEzAqQa B9UCtfU4Xh yyU4TDAzwXTnEFdbWIJ8I3 0ie3W4ZEVvDDDmIYL9jZS3 fP4ecCddzbdefJZknCneja VydGljYWwt AUtjF091CGYbwSccEuBrsR FsZTwvdGQ+AMIdIXH0qPqz ZRyeOGZjqT9tTHNfE5o2Mi LiWhG4GZcq D6KyOVUlmgszBx73lC7xUy GlTmX1HTdqH6DenbD5UXDf iFVcLEsoUTI7I16hk4L8QP MwMDAwMDA7 fGS3eM6aaJieqnkjyLAopF foalFseXrkWQwwNKukA450 OGArmQemYq74tOBibTosrs H6H1HyFqhr dHI+TR94BRTqHL08tYWcvF Bgr8fjuQu7HnVgQOIvXBI9 eHvjPDjuw4HcGBQtF48ccK Nxe7I7CLBy nErkeXTaNgGjsNS3tW6jMN qcrmfxc5otisehKltgw6ig qw54gT86Q75bJRpdANFcMN IzMCUiIHZh nPlokk3xaZ2qAo8+PGNvbC N0tSB7fU8iVtDbHzA5MPlo R892YiHidKElBqzey7nmu3 gzmLz3XnCs TYNmuvMasOpxYWT7t8QmUn 25G59lMYjlOXStAGWvOSDt FNEmgNmkse0obG8sJc5+PC 9tn7pdri16 iU46pFB+MPPyCGN4kBliWL nrELFtmU0qIUmpZbT2DCUs WmNebA04gENjESctRk2xvG kruAvdPM5l LHNbzesjr855ClWsj5ktRN BoxTZyIRrmPVB3Y27mm7L8 RERnJSOhARB4sXS8fC1nvJ lnbjogbGVm dDsgdmVydGljYWwtYWxpZ2 35YXWcvHubYmBzpAUkZ8id czYIVW7jRkxmcJX+PHRkIH Y1kBxeKQwb RILguA1sYSUsM4l9FxUlSb W9RElpQ8KgmcF9LIXtqFLj HMXooJMNgF9vmcbox8mrfi ogIzAwMDAw LYx8MLi5GMNzxAuaQrXhOZ F7VnC8LHC2bPLsuB9euPwk areqxU5kVgs+RklOOjwvdG Q+PHRkIHN0 pVnqCJjeSBEcfU5kVIVqM3 h2BdXxEfA0SFeoS5YwngS6 LTYhxSBuHXTpeWZVpA6ben ibt9jduawq KcMaAFWjUIx1QGb4QUBtdC spFcClXWF9WrJ7KMJ5kGSv oZ5aiZfdtgwkeX4uQgg+TV JOOjwvdGQ+ BBDyGOB9tGbwZYohLCWtfF 5dHMGeU9s7YeYyJoX1CWcj M0TmiqD6DLDqeNGgXKEtvC RSnG1urzru y0ijvwlzVsNpCZWsSRr3MU y8MYDqmPvmRnSbBFR1GoP6 OIU8eXQsgT7myWkfvuzdpP 9wOyc+UGF5 XON5HP17QF90S0LyKyagnT FibGU+PHRhYmxlIHdpZHRo ZKwxHOAgVcCwfZzuNP2dXt 9yZGVyLWNv bGxhcHNl (more content not included)... [facility] MRI Spine Lumbar w/o Contras ton 05-31-2022 [...] HERMINIO Technologist: FAYE Technical Comments None Normal [facility] XR Spine Lumbosacral Minimum 4 Viewson 05-31-2022 [...] spine. Lumbar vertebral body heights are maintained. Atok-qd-ynerhfiz intervertebral disc height loss throughout the lumbar [...] mGy = na DAP = na Normal [facility] Consent for Treatmenton 05-18 Consent for Treatment [id number]#1.0 0CD:127 Normal [facility] RAD - MRI Screening Formon 0 05-30-2022 RAD - MRI Screening Form [id number]#1. 00CD:127 Normal [facility] Physician Orderon 05-23-2022 Physician Order [id number]#1.0 0CD:127 Normal [facility] Physician Order [id number]#1. 00CD:127 Normal [facility] Physician Order [id number]#1. 00CD:127 Normal [facility] Workers' Comp Officeon 05-23 Workers' Comp Office [id number] [facility] [id number]#2. 00CD:127 [facility] Coding Summary.on 05-14-2022 Coding Summary. CD:[id number] Ww +PGhlYWQ+OA0ERVBuM42au LHunV3yT2TVNSlYVsraNTE QGOiXWtKrtvWyZP1gaRPnE XJu IC8+NJ8sILYbWpwsgSTfi0 Q6dRI2X54jkt5sVLgffEE7 TLVzYbMdsscsq1hfwCy4RT cuNmluOyBt OXJewQ98HWO4eK14Hs94uP BvdHZir5lciCa8TeNfPJBr ILQ9eJdwDZqum8XvFDOpA5 1swUVvw6U0 QHLpwPottIJnJyTwhRX0vT 5aVYqskmwjp5sjfdauAdr5 xt03cMTbo0P5qSI8E8Tykx B5OFWlkHEa BusosGZBrX7ivgslz4cztj aeWpDnFAObOPt6TYt6LEFz aVyxVfNsKC18ZFV1IMKprr UjQ9CdXTEx dWwfSzN3r9C3Ck8OY9FFKs snH0WDXJUDREstvBO+PC90 cx70Z5YsLdauVxi6BARrWO N2lWN2cC8q TENnSAzwh7A6fAX5W2Fpip Uwyw5tj1psEGUySMdxI03u xOBsr6H2UZSryYC3BHSuiM maFnSzmG46 Oyc+CKHyaMfav1WqQojeh1 hkd8iduEm5FwzkMMZvnkNd yRcqOZD9o1GjWs4fRHUlkH W3kRS7nG6r EaTnKjZ4HQrtC410RsSfwZ ChHtwbM70dD8MjlNR+PHRy Gke7YYNxpOukXH3zG7QpWH RpbmctbGVm cOorWJ7xMAJrasobIOUezD 4eNHCoC7s5SmEoJgJ2WTze Q3YdQVRvoqlkBd18zK3wLb TmApK0GMfw H6EaeqZ6MEVliSQxFUcbLI D0A19op5G6SRZjHIXtMOJ2 bDM5pI4pfAbynexjxEAxsG sgdmVydGlj MJzzMKvdD103KHRsfCppHp NvZGluZyBEYXRlOiAgMDMv MjgvMjAyMzwvdGQ+PHRkIH W6xMniPOJl cAVnKNgsZp0arLarlQlpQO 5bVCJrvtxvTGLuaU4fEYGw aQLceTyyDB4fAIJiwgzjt6 51BlTvXVE1 PVLubXIrN5CufF2oQdOoAZ BcWFPoJ2FqbOUiMOsgV769 QUafMoP9KUVrgfLgV2RmJZ FsaWduOiB0 b9H5Lt9Oi7GqlzqqG7GgsH FcCaTyHbxtNYy0U4RfEish dHI+TF81JHBuXH36MFd3LY U9iAenZViu VZLfM1PwdR3zXpRfWBQqKU RkOyc+PHRhYmxlIHdpZHRo RUpmEEOtHcWznFiqSM3qHr 9yZGVyLWNv uPlzbQMjZzLnb8ikSZDtSI anHS0hwZqfY3ZdlYU8GEHd c4r9Gw84F37zZ9BtaGY+PG NeyYD1qWB9 iU4xXxSlFaH8XVooC808Ql HdbMZyJdttu1tpt6cdnMd6 NuY7IFWnhxLwfLiyNKB4v3 EfBx80Y08s IHdpZHRoPSIxNSUiIHZhbG rdnt5hmL8jUc2+PGNvbCB3 aPY6gL4rMkXdPiG4USvjC1 49InRvcCIv Idrsj3pjj2leaWl8VuBcMH PuemKjiNjiCXQ9b0VwLg21 I2VipQcao2SjNzi4ok43vR Gfu5N8qCB0 Q5PeXEBmpioawCSuhTjtSK 6tBTZhqitsGGVpkG0sEVBt M1o8VhBjSpX2JIysR4Jdel L6GWQzbZNv IUYzpYBSyP9xkbgru1yuvi kpWePdLILpJRj6TFc9WMKw qUseVwGqPRC2AkW9NAM5mF UohG0aiEti stbvsP2gMcd+NBP5pHWgyJ GNWE1eFujmmIR+PHRkIHN0 kPyrXVmfOZMxyE0aIBHsW1 b2KqLpZhZ5 JLgwI9DlbpQ9GUPxkLJaMN JnjBKCyP0ewtoop9qzphel TfXoQUBsMKx2UDv5PBVksG duOiBsZWZ0 GkT5GUP8rEPrmI9saXdqbb zcrO2vClw+QmlydGggRGF0 LUs6Z5LdOui1JICmzPfzAO 0ncGFkZGlu Oq3nlOwbyKfjZL2bVNGypv tsb775StYmw4erWNMwsJEe ZOcuTHL3L25wg2M7RMQsER OuFDO8cXY6 xE7hlTztnhsbmARljYhijj FeyEglHIztCHzuO371GEIc gJsaDhBtOZm5O6AnSex7KX EuiLfmEK8q wTEtGBcaTa4imWjskZjbII 8kFVEcbwerc328UiKya5vn BALkhXAkUDgdPWY0U21yh9 C2UGOdVFXr CHP5rBI4aV3znYhejwoeoY VmdDsgdmVydGljYWwtYWxp K050RATeeHhjFqJgvUz4R2 TbBly8CXUr tOzoBJ8elEGlSYsxMu9saU bwvDksNH6zDJFbhzxrz675 DfEqo0jtYLAtqEQmPQnuLI L7D49hy1C1 MBBsVHZvZEU6vCZ2gA2caL lnbjogbGVmdDsgdmVydGlj RZuzRMnlK853UIIosYckEh BhdGllbnQg AOslDVk8F0RrQcqwuTU+PC 03CHPoWJ74fRDngSJnh1az jTp0FtZyDLSyPMX7hKfiWL vuo3VeAWOs D04hsRPaf6V4QKXmqFskgL BhXnSqcED7oJ9uXCcdemjx i4vbmrkwDmtjl9xryy39aK 76E18bCLzm ZHRoPSIzMCUiIHZhbGlnbj 5xxV8hNq6+LPBcdNJ8eTH2 fF4pVEHoEwY7HHruD313Oq RvcCIvPjxj a2bma1gazSw0QbO0STKsew SrhBraOQF5l3DqOz25P42v IHdpZHRoPSIyMCUiIHZhbG iimc9zvL9z Ii8+RWElsWH4iDS3pO4nCk UuRzF7KLbhL252SaYntKGg IrlxY26yV9UsqPD+PHRyPj p9ZFJjyPmh FV7edFIcMYwcJn6iBXD2Pq AjGiZbIFerD8RmHMGqbprz wmlkxIU0NKEiIMYqzW59Ap 9udDogMTBw pADWfY8zctmwn4jxeugpTp OaUJBlDUm1TCr3GIGvzFpx XkCrTKL1VuL1QHB0kTGxsH 1hbGlnbjog oE0jZ2DgPTZqgiduGp88xQ 5iMuFzEmV8PMxbGxt+Qkla Q5JDAnqjJy1IIy2hQVsjoM Q+PHRkIHN0 fWghXAvaSTKdcX5nMWGoC6 b4WfVfNgV0OMscA2PgCILw zegvRd33lT1lUdZvNlY3JC kpL6IofsN0 AWDgmBNkELfcAFR7Y71su0 C9IAGrBRYuLKF3yEN5cJ7s bGlnbjogbGVmdDsgdmVydG ljYWwtYWxp T183TFAlgUjtDeN3XsIzTa K6VAJ7Z1KoJvp3MKWitUqg YX6bsQFfIOstLj6foSbfvS meHG0jSLCs xfngXWGbkO7gGMPntWGzlE utYY4uUPZbgdkth322FtHb DUO9LKKjoHOlX9YtvQ0wZf AjMDAwMDAw D4FlsCBgVNonG686PCsmQb C5JYGgsjSoC9RaOYQygIef WlZ1c8F2Aw84NlWGECYwkr wvdGQ+PHRk PCX8rXncVEzdXCKtvE1vUH BhU9p1OrAyFzP8FLshG2Qy WLNlobkgJu70vI8lMrBlYp I9GIafW3Zj ayF8GOKblXLvWIbpMNZ2G6 9is4V9EYDqYVHbPJG4nKU7 eF1wuIiwrdmxkBEihZkxbb VydGljYWwt CUpbV280OQVpsAzgRaCojM FsZTwvdGQ+AAWbVER8lFmx DItlIWEjkT3bZGUqZ4k5Zz PmXbL8IYeg M2RvJVTyagokVo61xZ7qYa JwUeQ5TQobU8JqwoH9UJPj tWSxGBbsZJG0K99ss0F0KJ MwMDAwMDA7 kQK8vE1fiCtvlpyrhTOcnQ iiyqXlgMbcCIsiNZbaX489 OUMwqJtfMwXwbE4eBJMjFL dlbWVudDwv dGQ+UX85jy37N8LeLhbvJf e9TFYiFZO8yGV1gD8qDTSp SJjdn3Y1sFQ5D9AfyvCknl 2hs3haGCGi KFouG99jlAQvo1J7EHCzhI D9VZLoqPioXoYdnZ99Yny+ XHTiiZnxd7AiAqbqn3dzy6 dskXb7EfBa VHLlxqOscFzeZOX2x3NkQa 96K85pOKapOLQlQKCsUJMf XHRclPswcn4bkA2eSs2+PG FywYG4uVW4 sH0uXhQsIqO3SQsfF209Oj AurTKdCpfxr8vkt9kvcHl0 RnXnYIWelcVtdDmnSNC5j0 BcVs31X6Oj dXswa9LyImd4xs91tWArn4 K9nRE3Q5VlGNKuugyonPVv lKvuHI3oKMXakwjmUKJjnL 3bTABuO8e5 VkWfDuL3EHrlA7BwueN2XC YnvCHuZIEyoFUMiG7lzeza p9jnphyuGmGgHZMqDRb6UR c4EHAcoMhn QmYmXNN2YtA6RSQ7oYQswX 3diXvtwludgJ3tTwt+UGh5 w7jcdDYxDX8seXB3NO45VH 35eJAjg1X9 gHW5U9ObPNUjtpqqreijkT G1EOQyFHDuwE78Hn8xpXrx Hv3fNAKvWIA3UVOqaNCnJ7 TkvL5vSbZx CIUiAPFgV8PliNRvXRccF0 15KQumKuC7SUYwdqTcQ7Wj FZXwuWsiQpV4n8U9Vu9JJX 57KE47ZI98 mUMqr6M7mHG4S9AaPNJgon dmhyekxDK5HSEvDUCieL88 Pd5goCytOk5gZYBqRID5QP XzoIEpK3Ue tL3oDdAuLMIzPBUtL6ZquS JoVWptR448DCtbTmY5TPEa abEhM1XqRDCguWqfSvD4l4 T9Sj5LAq99 JS79WE88eJHlr7A5eTY2M0 LhIDFhfsnoedntaQP6LUWw UMSfqP76Oj0qbVjdFi7zVW RcNKB9GKTw zTJiM6JddM8hGnMeGGVeBH LwW5MwqXWyMOcyB246OPzp ImF7RTTamlZaB2OwBASjlC ybCeM9s5W1 Kd1UECaseue8T9StZdzchL I+HY69VAEmBH10rJVotNTr k2incSs5SkPzKYAhNMF2oX dgSNaqq8Pm MGYeO23c (more content not included)... Normal [facility] US KIDNEYSon 05-14-2022 US KIDNEYS EXAMINATION: US [...] by: SOFIE PATTERSON Date: 2022-05-14 14:20 Normal [facility] Consent for Treatmenton 04-18 Consent for Treatment [id number]#1. 00CD:127 Normal [facility] Legal Correspondence Officeo n 05-09-2022 Legal Correspondence Office [id number]#1. 00CD:127 Normal [facility] Office/Clinic Note-Physician on 05-09-2022 Office/Clinic Note-Physician [id number]#1. 00CD:127 Normal [facility] Patient Correspondenceon Patient Correspondence [id number]#1. 00CD:127 Normal [facility] Patient Correspondence [id number]#1. 00CD:127 Normal [facility] Patient Correspondence [id number]#1. 00CD:127 Normal [facility] Patient History Officeon Patient History Office [id number]#1. 00CD:127 Normal [facility] INSULINon 04-26-2022 Insulin 25.3 uIU/mL Critically high 2.6-24.9 [facility] Comment on above: Performed By: #### I NSULIN ####[facility] [address] [place], [place] [address]CiDr. Marion Bullard CBC AUTO DIFFon 04-25-2022 BASO # 0.1 103/ul Normal 0.0-0.1 [facility] Comment on above: Performed By: #### C BC #### [facility] [address] [place], [place] [address] Dr. Marion Bullard Basophils/100 WBC (Bld) 0.6 % Normal 0.2-2.0 [facility] Comment on above: Performed By: #### C BC #### [facility] [address] [place] [address] [address] Marion Bullard EO # 0.2 103/ul Normal 0.0-0.7 [facility] Comment on above: Performed By: #### C BC #### [facility] [address] [place] [address] [address] Marion Bullard Eosinophils/100 WBC (Bld) 1.1 % Normal 0.9-7.0 [facility] Comment on above: Performed By: #### C BC #### [facility] [address] [place] [address] Dr. Marion Bullard Erythrocyte distribution width (RBC) [Ratio] 12.7 % Normal 11.0-15.0 [facility] Comment on above: Performed By: #### C BC #### [facility] [address] [place] [address] Dr. Marion Bullard Hematocrit (Bld) [Volume fraction] 43.8 % Normal 36.0-48.0 [facility] Comment on above: Performed By: #### C BC #### [facility] [address] [place] [address] Dr. Marion Bullard Hemoglobin (Bld) [Mass/Vol] 14.6 g/dL Normal 12.0-16.0 [facility] Comment on above: Performed By: #### C BC #### [facility] [address] [place] [address] [address] Marion Bullard IG # 0.11 10e3/ul Critically high 0.00-0.03 [facility] Comment on above: Performed By: #### C BC #### [facility] [address] [place] [address] Dr. Marion Bullard IG % 0.7 % Critically high 0.0-0.5 [facility] Comment on above: Performed By: #### C BC #### [facility] [address] [place] [address] [address] Marion Bullard LYMPH # 3.1 103/ul Normal 1.2-3.[address] [facility] Comment on above: Performed By: #### C BC #### [facility] [address] [place] [address] Dr. Marion Bullard Lymphocytes/100 WBC (Bld) 19.4 % Critically low 20.5-60.0 [facility] Comment on above: Performed By: #### C BC #### [facility] [address] [place] [address] Dr. Marion Bullard MANUAL DIFF REQ NO Normal [facility] Comment on above: Performed By: #### C BC #### [facility] [address] [place] [address] Dr. Marion Bullrad MCH (RBC) [Entitic mass] 29.9 pg Normal 26.7-34.[address] [facility] Comment on above: Performed By: #### C BC #### [facility] [address] [place] [address] Dr. Marion Bullard MCHC (RBC) [Mass/Vol] 33.3 g/dL Normal 29.9-35.[address] [facility] Comment on above: Performed By: #### C BC #### [facility] [address] [place] [address] Dr. Marion Bullard MCV (RBC) [Entitic vol] 89.8 fL Normal 81.0-99.0 [facility] Comment on above: Performed By: #### C BC #### [facility] [address] [place] [address] Dr. Marion Bullard MONO # 1.3 103/ul Critically high 0.3-0.8 [facility] Comment on above: Performed By: #### C BC #### [facility] [address] [place] [address] Dr. Marion Bullard Monocytes/100 WBC (Bld) 8.1 % Normal 1.7-12.[address] [facility] Comment on above: Performed By: #### C BC #### [facility] [address] [place] [address] Dr. Marion Bullard NEUT # 11.3 103/ul Critically high 1.4-6.5 [facility] Comment on above: Performed By: #### C BC #### [facility] [address] [place], [place] [address] Dr. Marion Bullard Neutrophils/100 WBC (Bld) 70.1 % Normal 43.0-75.0 [facility] Comment on above: Performed By: #### C BC #### [facility] [address] [address] [address] Marion Bullard Platelet mean volume (Bld) [Entitic vol] 8.5 fL Critically low 9.5-13.[address] [facility] Comment on above: Performed By: #### C BC #### [facility] [address] [address] [address] Marion Bullard PLT 488 103/ul Critically high 150-450 [facility] Comment on above: Performed By: #### C BC #### [facility] [address] [address] [address] Marion Bullard RBC 4.88 106/ul Normal 4.20-5.[address] [facility] Comment on above: Performed By: #### C BC #### [facility] [address] [address] [address] Marion Bullard WBC 16.1 103/ul Critically high 4.0-11.0 [facility] Comment on above: Performed By: #### C BC #### [facility] [address] [address] [address] Marion Bullard FREE THYROXINE INDEX T7on FTI 2.69 Normal 1.30-4.[address] [facility] Comment on above: Performed By: #### L IPID, CMP, T7, TSH ####[facility] [address] [place], [place] [address]SqSolitario Bullard T3U 34.0 % Normal 30.0-39.[address] [facility] Comment on above: Performed By: #### L IPID, CMP, T7, TSH ####[facility] [address] [place], [place] [address]OvDr. Marion Bullard T4 [Mass/Vol] 7.90 ug/dL Normal 4.80-13.90 [facility] Comment on above: Performed By: #### L IPID, CMP, T7, TSH ####[facility] [address] [place], [place] [address]QcSolitario Bullard GLYCOHEMOGLOBIN A1Con 2022 ADA RECOMMENDATION SEE BELOW Normal [facility] Comment on above: Result Comment: ADA RECOMMENDED LIMIT 4.0 - 6.0 ADA THERAPEUTIC TARGET < 7.0 ACTION SUGGESTED > 7.0 Performed By: #### A 1C ####[facility] [address] [place] [id number][address] Marion Bullard Glucose [Mass/Vol] 120 mg/dL Normal [facility] Comment on above: Performed By: #### A 1C ####[facility] [address] [address]DrSolitario Bullard HbA1c (Bld) [Mass fraction] 5.8 % Normal 4.5-6.2 [facility] Comment on above: Performed By: #### A 1C ####[facility] [address] [address]Dr. Marion Bullard IRONon 04-25-2022 Iron [Mass/Vol] 94.0 ug/dL Normal 50.0-170.0 [facility] Comment on above: Performed By: #### I NANCY #### [facility] [address] [address] [address] Marion Bullard LIPID PROFILEon 04-25-2022 CHOL-HDL RATIO NORM SEE BELOW Normal [facility] Comment on above: Result Comment: 3.3 - 4.4 LOW RISK 4.4 - 7.1 AVERAGE RISK 7.1 - 11.0 MODERATE RISK >11.0 HIGH RISK Performed By: #### L IPID, CMP, T7, TSH #### [facility] [address] [address] [address] Marion Bullard Cholesterol [Mass/Vol] 193 mg/dL Normal <=[address] [facility] Comment on above: Performed By: #### L IPID, CMP, T7, TSH #### [facility] [address] [address] [address] Marion Bullard Cholesterol in HDL [Mass/Vol] 49 mg/dL Normal 40-60 [facility] Comment on above: Performed By: #### L IPID, CMP, T7, TSH #### [facility] [address] [address] [address] Marion Bullard Cholesterol in LDL [Mass/Vol] 122.4 mg/dL Normal [facility] Comment on above: Performed By: #### L IPID, CMP, T7, TSH #### [facility] [address] [address] [address] Marion Bullard Cholesterol.total/Ch olesterol in HDL [Mass ratio] 3.9 {ratio} Normal [facility] Comment on above: Performed By: #### L IPID, CMP, T7, TSH #### [facility] [address] [address] [address] Marion Bullard HDL NORMAL > or = 60 mg/dl - LO W CARDIOVASCULAR RISK <40 mg/dl - HIGH CARDIOVASCULAR RISK Normal [facility] Comment on above: Performed By: #### L IPID, CMP, T7, TSH #### [facility] [address] [address] [address] Marion Bullard LDL CALC NORMAL SEE BELOW Normal [facility] Comment on above: Result Comment: <100 mg/dl OPTIMAL 100 - 129 mg/dl NEAR OR ABOVE OPTIMAL 130 - 159 mg/dl BORDERLINE HIGH 160 - 189 mg/dl HIGH >190 mg/dl VERY HIGH Performed By: #### L IPID, CMP, T7, TSH #### [facility] [address] [address] [address] Marion Bullard Triglyceride [Mass/Vol] 108 mg/dL Normal <=150 [facility] Comment on above: Performed By: #### L IPID, CMP, T7, TSH #### [facility] [address] [address] [address] Marion Bullard VLDL CALC 21.6 mg/dL Normal [facility] Comment on above: Performed By: #### L IPID, CMP, T7, TSH #### [facility] [address] [address] [address] Marion Bullard PROF 14(COMP METB)on 03-09-2 023 Albumin [Mass/Vol] 3.4 g/dL Normal 3.4-5.0 [facility] Comment on above: Performed By: #### L IPID, CMP, T7, TSH #### [facility] [address] [address] [address] Marion Bullard Albumin/Globulin [Mass ratio] 0.9 {ratio} Normal [facility] Comment on above: Performed By: #### L IPID, CMP, T7, TSH #### [facility] [address] [address] [address] Marion Bullard ALP [Catalytic activity/Vol] 93 U/L Normal 46-116 [facility] Comment on above: Performed By: #### L IPID, CMP, T7, TSH #### [facility] [address] [place] [address] Dr. Marion Bullard ALT [Catalytic activity/Vol] 26 U/L Normal 14-59 [facility] Comment on above: Performed By: #### L IPID, CMP, T7, TSH #### [facility] [address] [place] [address] Dr. Marion Bullard Anion gap [Moles/Vol] 12.7 mmol/L Normal [facility] Comment on above: Performed By: #### L IPID, CMP, T7, TSH #### [facility] [address] [place] [address] Dr. Marion Bullard AST [Catalytic activity/Vol] 21 U/L Normal 15-37 [facility] Comment on above: Performed By: #### L IPID, CMP, T7, TSH #### [facility] [address] [place] [address] Dr. Marion Bullard Bilirubin [Mass/Vol] 0.5 mg/dL Normal 0.2-1.0 [facility] Comment on above: Performed By: #### L IPID, CMP, T7, TSH #### [facility] [address] [place] [address] Dr. Marion Bullard Calcium [Mass/Vol] 9.1 mg/dL Normal 8.5-10.1 [facility] Comment on above: Performed By: #### L IPID, CMP, T7, TSH #### [facility] [address] [address] [address] Marion Bullard Chloride [Moles/Vol] 104 mmol/L Normal 98-107 [facility] Comment on above: Performed By: #### L IPID, CMP, T7, TSH #### [facility] [address] [place] [address] Dr. Marion Bullard CO2 [Moles/Vol] 29.2 mmol/L Normal 21.0-32.0 [facility] Comment on above: Performed By: #### L IPID, CMP, T7, TSH #### [facility] [address] [place] [address] Dr. Marion Bullard Creatinine [Mass/Vol] 0.68 mg/dL Normal 0.55-1.02 [facility] Comment on above: Performed By: #### L IPID, CMP, T7, TSH #### [facility] [address] [place] [address] Dr. Marion Bullard EGFR-AF LATVIAN >60 Normal >=60 [facility] Comment on above: Performed By: #### L IPID, CMP, T7, TSH #### [facility] [address] [place] [address] Dr. Marion Bullard EGFR-NON AF LATVIAN >60 Normal >=60 [facility] Comment on above: Performed By: #### L IPID, CMP, T7, TSH #### [facility] [address] [place] [address] Dr. Marion Bullard Globulin (S) [Mass/Vol] 3.9 g/dL Normal [facility] Comment on above: Performed By: #### L IPID, CMP, T7, TSH #### [facility] [address] [place] [address] Dr. Marion Bullard Glucose [Mass/Vol] 103 mg/dL Normal 74-106 [facility] [facility] Comment on above: Performed By: #### L IPID, CMP, T7, TSH #### [facility] [address] [place] [address] Dr. Marion Bullard Potassium [Moles/Vol] 3.9 mmol/L Normal 3.5-5.[address] [facility] Comment on above: Performed By: #### L IPID, CMP, T7, TSH #### [facility] [address] [place] [address] Dr. Marion Bullard Protein [Mass/Vol] 7.3 g/dL Normal 6.4-8.2 [facility] Comment on above: Performed By: #### L IPID, CMP, T7, TSH #### [facility] [address] [place] [address] Dr. Marion Bullard Sodium [Moles/Vol] 142 mmol/L Normal 136-145 [facility] Comment on above: Performed By: #### L IPID, CMP, T7, TSH #### [facility] [address] [place] [address] Dr. Marion Bullard Urea nitrogen [Mass/Vol] 13.0 mg/dL Normal 7.0-18.[address] [facility] Comment on above: Performed By: #### L IPID, CMP, T7, TSH #### [facility] [address] [place] [address] Dr. Marion Bullard Urea nitrogen/Creatinine [Mass ratio] 19.1 mg/mg Normal [facility] Comment on above: Performed By: #### L IPID, CMP, T7, TSH #### [facility] [address] [place] [address] Dr. Marion Bullard PROTIMEon 04-25-2022 INR Coag (PPP) [Relative time] 0.95 {INR} Normal [facility] Comment on above: Performed By: #### P TT, PT #### [facility] [address] [place] [address] Dr. Marion Bullard INR GUIDELINES SEE BELOW Normal [facility] Comment on above: Result Comment: YARELI RED INR: 2.0 - 3.0 CONDITIONS NOT LISTED BELOW 2.5 - 3.5 FOR PROSTHETIC HEART VALVE REPLACEMENT 2.5 - 3.5 RECURRENT THROMBOSIS Performed By: #### P TT, PT #### [facility] [address] [place] [address] Dr. Marion Bullard PT Coag (PPP) [Time] 10.1 s Normal 9.0-11.6 [facility] Comment on above: Performed By: #### P TT, PT #### [facility] [address] [place], [place] [address] Dr. Marion Bullard PTTon 04-25-2022 aPTT Coag (Bld) [Time] 27.3 s Normal 22.3-36.2 [facility] Comment on above: Performed By: #### P TT, PT #### [facility] [address] [place], [place] [address] Dr. Marion Bullard TSHon 04-25-2022 TSH 3.782 uIU/mL Critically high 0.358-3.740 [facility] Comment on above: Performed By: #### L IPID, CMP, T7, TSH #### [facility] [address] [place], [place] [address] Dr. Marion Bullard XR HAND LT MIN [...] by: JANNA SON Date: 2022-03-29 16:06 Normal [facility] Coding Summary.on 03-21-2022 Coding Summary. CD:[id number] Gh 0bWw+PGhlYWQ+RZ1PYYRxO 15utYPjnI1BZ6aYPQ2LPYP MDTVBER9HYV2ufOY1OSseU 2VybiAv RvdxoQIiLL99ZOg4YEL5vW cuVHstkK6mmSGjH7n3ScMs XU43yA43RPpoXXFyHvS7Ht ZpbjsgbWFy W4ohViDtfWBrDym+PHRhYm xlIHdpZHRoPScxMDAlJyBz nDkjXJ4sXy8qUHUuIBUfxC xhcHNlOiBj u4yrHFPfOAbsJV1ifGdnL4 PxbYF2QEKvo2b6Wp15iQD+ LSRnPKK0cQoaPHvmo515Pc Zrj3gnNCD6 bAIjOCyrJAK6E70wn2K1US DsMSOrLPQ0lDP7qI0fgKvn gsofN7JwlGCoRyR8FLU6fG LijX1ueVkc uwixiB7kFzm+K45VCH1MSY LUCF6NNdu3M4ZtPrvtpDQ+ FJ81DIZnSD05tJRfcNWll9 hbjWo3WtCe SCCfNOX8sBrkIMifc3UtNK PrH07mzWCyh4J3LUErsHeo uRGfTuTqqCT0aK4tWQrjvi hyz8coofbv Jpdho4dmxx46dH69Z62sGD lnHUFxFHH4TRVpDPFvjFdd kc7wlF7tJt1+ESvup6jyv7 cdcUt5ErHk AXLxpuJnmTpjYSY3c9AxMj 02X8DslHasd6HpAku9bn16 pIJqt3M0jED8EXixJPFrlR 2tIGyqEfY2 PEXgJfAobS97cDJgTDghQu 1wiRqsnEgiBL2iIKSfjwex QUXdnD3zUVOgcOZvmFfbOB 4wNTBpbjtm u492ZaJzSCZ0KIAaeLCoV9 VmuZ6hAgHzEFJpBXQeE8Zc dOTdWSqhL168OZqmRjC7UT EapaPuX7Ay ZFCluZgnSiR3l9E5Ln7Dk1 RjznqvVXM7ZXdfMPVjEeZl WnVkEuN1Z4KmDmm8SKNldC rzOY2aX0Jb JZFrrtwinhwulOV8HWWuZM OuaV84iVEpQVmlBl3bg0R0 t742IHYgKBYzdC62Mz1laB ogMTBwdCBU xV5mvbkrb6tbmlvoWaUmDU JfEXm7KNv2HEWidQwtDeXa RZJ1YbP7UFR8tAGxkI9jxM mbdhkwaH2o Oyc+L19pqJ9jUOX0PDW7dz msUKVuynWpNJ02AY42K6Jp PjwvdGFibGU+PGRpdiBzdH cbXF1yPdBb h0pgj7XrSQplJ7NvUIAnXK duOlu0CDOrQZX6qFR2kR5b OJUzXIdll5S4wHW8E0Xkze Ixji6im5kt EXKdDPxrP41nnJVvi2I3SQ UkeYU9NQPxvAxoYlBqyI83 Oyc+CTTabHbhv7XhCjioj5 awx9oogPr9 LhPwDEYkmrJwsYxkZTI1v8 HpJk71B32wMLcwXBJcZBEw IOFoCRCkyHgvdw0riT9aJw 8+PGNvbCB3 nFO9wO3rALEgKdH6ZXilL2 18DwMvyDElOotsp7ioi1mc gMi8TeLcQMFqdhEsaWniXR U4f4SaVo57 U67wYOtgAKUeBFUeYMHjXQ OtkTqhce6hdT1aHj4+PC9j q4fzqv90iA37rVS+PHRkIH T3zYpqNPvk GXSqhP8zLWehGcP8GICxIt AibV75iXZiZLdxBd8gmSqo wNfnWN6tDPByukjqk063Np Lje4orFMJh ePDfFGvdJEQ9Z09xn6F1VI MzXMBbMXW7jCD6pD6elUpp bjogbGVmdDsgdmVydGljYW qfOPujH811 IHRvcDsnPlBhdGllbnQgTm BpDWt7H7SdXyp7BTNirXei DA2gyDEhDBdoHu7fgGcgyE cxFG3kGCNg zvsgw833LmAwd3oaNMFbjT AbGUgeYSP4H18lh2W6YCYj VVGgOQK0pVJ9qR2nvYmsey ogbGVmdDsg szHacJmzBGivEBklY705GJ RvcDsnPkJpcnRoIERhdGU6 QM73YN89wSVzb4D4sSN5M0 BhZGRpbmct ubhonFW1LWVpZGQhxW17Ce 0dbIrgFz0pGKSxVTB9CPPv gLKjX4XncX1dHfKxRWAkKY HgZ0ZedNEm HRctK232FIivLaS0TLNoxe UjK7MtYTKvcVlbWfD7i9E1 Uj2NM1Y2JH57VK43lXWoa0 P5sQS2Z4Fh AWCakfnsdllvaXR4JKAuQZ YrnC44Cj1eyKykAl6sLKIb VYM5DDRkxXNxZ9VtuK3eUa AjMDAwMDAw Y7BmsTAqKZcnN217GKcnJc G9XNQwgkOnB5AiGMXkfIwb TaM6a5F8Pt4VJYf4ML50FC 80jKMbs2E6 iON5R9ZiEJVtngqucchbfQ N1CMKzLIErwA78Io5etYkg Nd3mOYRuZHE6YEFmwHZbS1 KuaE1lJoDe NJNvQPBlO5PjoOQyEYjvO8 66NEdgHyL7PVLqxbFsM8Qj POZwoCfjUhI8k1J8Po5XDE DvJC11DIU8 uQF9SJ48II94W7TbSukvgX FibGU+PHRhYmxlIHdpZHRo BFsdRWQcCsNacNxuVY6eQx 9yZGVyLWNv jFgahBRvJbJlq4uuQSGqQZ qaBC5osWchB9TniYS6CXZw w2q6Og03V27eN6CzlTB+PG ZvbUB9bGX8 dP7oQnHvRxU5BGxbM592Tg RvoRVdGxbze4bnd0widTb7 MmC0FPBogrZiuZdlAHH7v9 FoVs70T81m IHdpZHRoPSIxNSUiIHZhbG xxki1ccL8tXc3+PGNvbCB3 vLU4iS7oNuKvWdK4EWddD2 49InRvcCIv Zdbfi2bgn4mykQh1DtYtPA CxluNhlTzzNJY6m8GoKy12 W7PbfRrsa2RnOuq6fn40uH Jna6B1nMA3 R1YlCEJcbtvfjWKqcWhjXJ 4lFSWgaupkZPXppW6pCQMf M0p7KrTgXjW0VDpiS9Otxm S5TTCfzHKw PZsoRBE2P19il3Y4HIEwGX DwQWD0cUK9rZ3bjFgmgdsw bGVmdDsgdmVydGljYWwtYW vzE812YFFu sCxdEWFsoG5mQYWaqZWqvA jcTS9hYEUghcdfAzPNVn1A JBgxVWwWML0BMB92Z3RkXt d6FAWcpIgf LC0wdJNeDKukOw1dnVwmfB wrBR2zCOYwaavsZBOahM1e MQBkmDNdeVejAK0gPZBnxv nbp374PpQn KDZ1MLPumWHyN5SjsP6eZf UxDFTvHLUyS6AjyJZuCPby L669WYbcMuZ6PGEsawRjH3 FsLWFsaWdu IiG9m2X6Uw9iIW5nHt9mIX D6DL90YG75oRSfi1Z5jRD7 N0XkICQtygghimskqVN2QM QmSRClwI05 wMFwJZizOk3vi7W1h602FD OgJUIkjL82Ck5kyLxqUMTw tGWZvD0tobmrq5sscvumDe AwMDAwMDt0 YOm2JOOhrAkzMqHeDVA0Op F8MAW0xQQxrD4orZgfjfha wK6qUrt+LnEcITEomkA3P3 EpYgg9WRXd hRjoDE7ncTGhGJeoMj5trQ kpcFycNA6wQPAehchjNOGu bK5wFNYutSVqgObwGT2wZA Gsfskbu951 ErPgKMU1IDDfxAQhH5HerA 7sKnDhBENmZOOkN2OvnFBl UDyeX930EBgvIoB9KNSkzf HzK3NsXNYa xKwdTxV0k2R9Wd9RPR7wrN Y4I0ScXpz8TZCvgRspRU3p eFPdENioSt1wwHropAnsYQ 4wNTBpbjtw AWApuT5xHPKydTCiiCfiFN 8zRRTgsohzv389TePlTUK6 LJDeiPLrE6BywQ8lHlUeNV JjHMElQ2Aa nQDqOFwwM390DLgmVbK4PA WtoxNyW3ZlSXPbhSopPbK6 f9M0Qh5TZWcfXE6zycEpGO 3ctiP6L0Ws PjwvdHI+SX39AOFlRQ65pF HgiFKiz4bgfPv9TiCsCUJr DYO8kZmqORzll6FcAWUwW7 9xoORid1H0 VSNruTioqOLgGuYojDD3pD 6hBRbcyjevf0ccavryBsfl g3sxda49mQ88T20tUDrnYW RoPSIzMCUi RSZfrPvnlc0feA6bHo8+PG YmbNP2eZN2yW1kFqAwAkS7 QSbnZ685IcVfhXUkZobxc0 xvm1aheQo5 JpIeNCNpqeWrpSbmSCS5s6 GqKu34S90jLXttWHPqOCIw VXUvZUPdaEcqpx0qjJ0nJo 8+GH4fk5sa ii66qJ73uXN+PYOaNEB0iI syJUqeIIXwyM6zEOpmLjR2 MZHgZkUfyT04iGMvGJjgSs 1yaWdodDog DJ5nHUOrfuqhm951VwPpe7 qtXELxqSFkMValOIA5F13v q8F1ZJRoIUAkRXJ3pOU8xX 1hbGlnbjog bGVmdDsgdmVydGljYWwtYW lxG134KOZygOhuHwWfeWGo L1hvmsDGHX2fTiozhCH+PH ZtTAM5vHoe XCdkACUbqA6vAXTbF6v9Ap VjLsY2OLykZ4ZazbK1IQTt zAVrFOUsySOZzQ5ksgdxp4 xvcjogIzAw XVKtCYy1GQx7EMNpqBomLn QmUCR8ErT8ZFU9uGSxcT6r qOrfdylcxF8nXvi+RklOOj wvdGQ+PHRk JER5mZpfUOfmPPHjgP1bQQ IdH9i3ZwObIcO8IDgdP7Xa vsQ9HZIosLErUFJvbTIUoR 6xtyvpr2fc ytxvIfVnASWbWAc0CDg3MA DfkPthEeItMVO7TsL7RGA3 mKWnrF0hfKlcoskjcN6fOs c+TVJOOjwv dGQ+OYXgQIN6nTbuRRovCL TriP8kAKSlU4d5OxUxDoP0 PHfiN3LsrfK4CJHqfTYqYZ YjiMEBoC3j qubkc5zmcmfkIiOfAWNyBW b2XLl8EZZihGwrYgHqBBE3 ZdV7OYE4oGUxiO0vqQzbsu axfI7yEvl+ PKL5GQY9AQ93UZ85V7UoUf wvdGFibGU+PHRhYmxlIHdp ZHRoPScxMDAlJyBzdHlsZT 4iDp3dHVPl LWNv (more content not included)... [facility] Consent for Procedure/Surger yon 03-20-2022 Consent for Procedure/Surgery [id number]#1.0 0CD:127 [facility] Consent for Treatmenton Consent for Treatment [id number]#1. 00CD:127 [facility] Discharge Instructionson Discharge Instructions [id number]#1.0 0CD:127 [facility] IntraOperative Documentson 0 03-20-2022 IntraOperative Documents [id number]#1.0 0CD:127 [facility] IntraOperative Documents [id number]#1.0 0CD:127 [facility] Main OR Intraoperative Recor don 03-20-2022 Main OR Intraoperative Record IntraOp Document Type FTPM Summary Primary Physician: Gerald Pham MD Finalized Date/Time: 03/20/22 13:43:47 Pt. Name: SHELLY HUMPHREYS/Sex: 1955 Female Med Rec #: [id number] Physician: Gerald Pham MD Financial #: [id number] Pt. Type: P Room/Bed: / Admit/Disch: 03/20/22 [...] RN, Ananya Role Performed Surgeon - Primary Automation And Controls Manager - Primary Scrub - Primary Time In [...] Ronak Rodriguez Role Performed Staff - Other Drying Machine Receiver Time In 03/20/22 13:34:00 03/20/22 13:34:00 Time [...] and tissue Entry 1 Skin Integrity Intact, [place], Warm, and Skin Abnormality No Dry Outcomes [...] Extended Posit (more content not included)... Normal [facility] Main OR Preoperative Recordo n 03-20-2022 Main OR Preoperative Record Holding Area Document Type FTPM Summary Primary Physician: Gerald Pham MD Finalized Date/Time: 03/20/22 13:30:04 Pt. Name: SHELLY HUMPHREYS Rei Gamboa/Sex: 1955 Female Med Rec #: [id number] Physician: Gerald Pham MD Financial #: [id number] Pt. Type: P Room/Bed: / Admit/Disch: 03/20/22 [...] Signed By: Brittnee Blackburn RN 03/20/22 13:30 [facility] Operative Reporton Operative Report SURGERY DATE: 03/20/2022 [...] condition. Gerald Pham M.D. lr Dictated: 03/20/2022 [id number] Transcribed: 03/20/2022 [facility] Comment on above: Result Comment: Elec tronically Signed By: Ankit HUDSON, Gerald\.br\Date and Time Signed: 03/20/22 16:39 EST Patient Correspondenceon Patient Correspondence [id number]#1.0 0CD:127 Normal [facility] Vital Signs Date Time Vital Sign Value Performing Clinician Facility 02-21-2023 [id number] Diastolic blood pressure 101 mm[Hg] Nyasia [employer] [facility] 02-21-2023 15:11-0500 Heart rate 74 /min Nyasia Helton [facility] 02-21-2023 15:11-0500 Mean blood pressure 116 mm[Hg] Nyasia Helton [facility] 02-21-2023 15:11-0500 Respiratory rate 18 /min Nyasia Helton [facility] 02-21-2023 15:11-0500 Systolic blood pressure 147 mm[Hg] Nyasiataras Helton [facility] 01-20-2023 13:49-0500 Heart rate 81 /min Barry Neeraj [facility] 01-20-2023 13:49-0500 SaO2% (BldA) [Mass fraction] 98 % Barry Neeraj [facility] 01-20-2023 13:49-0500 Diastolic blood pressure 84 mm[Hg] Barry Neeraj [facility] 01-20-2023 13:49-0500 Mean blood pressure 109 mm[Hg] Barry Neeraj [facility] 01-20-2023 13:49-0500 Systolic blood pressure 160 mm[Hg] Barry Neeraj [facility] 01-20-2023 13:49-0500 Respiratory rate 16 /min Barry Neeraj [facility] 01-20-2023 13:43-0500 Diastolic blood pressure 94 mm[Hg] Barry Neeraj [facility] 01-20-2023 13:43-0500 Heart rate 76 /min Barry Neeraj [facility] 01-20-2023 13:43-0500 SaO2% (BldA) [Mass fraction] 98 % Barry Neeraj [facility] 01-20-2023 13:43-0500 Systolic blood pressure 159 mm[Hg] Barry Pickard [facility] 01-20-2023 13:35-0500 Heart rate 87 /min Barry Pickard [facility] 01-20-2023 13:35-0500 SaO2% (BldA) [Mass fraction] 98 % Barry Pickard [facility] 01-20-2023 13:35-0500 Diastolic blood pressure 77 mm[Hg] Barry Pickard [facility] 01-20-2023 13:35-0500 Mean blood pressure 98 mm[Hg] Barry Pickard [facility] 01-20-2023 13:35-0500 Systolic blood pressure 140 mm[Hg] Barry Pickard [facility] 01-20-2023 13:33-0500 Respiratory rate 14 /min Barry Pickard [facility] 06-24-2022 13:44-0400 Body temperature 98.49 [degF] John Liz MD Work Phone: [facility] 06-24-2022 13:44-0400 Body weight 93.44 kg John Liz MD Work Phone: [facility] 05-09-2022 14:51-0400 Diastolic blood pressure 79 [...] 03-20-2022 13:23-0500 Systolic blood pressure 149 mm[Hg] Egrald Zumbar [facility] 03-20-2022 13:23-0500 Body temperature [...] Start: 03-10-2023 End: 03-10-2023 ambulatory ADÁN LALA Facility:[facility] Start: 02-21-2023 End: 02-22-2023 ambulatory Nyasia Helton Facility:[facility] Start: 02-21-2023 End: 02-21-2023 Pain Management Nyasia Helton [facility] Start: 01-22-2023 End: 01-22-2023 ambulatory ADÁN LALA Facility:[facility] Start: 01-22-2023 End: 01-22-2023 Patient encounter procedure John Liz MD Work Phone: Rheumatology Comment on above: Seropositive rheumat oid arthritis (HCC) (Primary Dx); Medication monitoring encounter Start: 01-20-2023 End: 01-21-2023 ambulatory Barry Pickard Facility:[facility] Start: 01-20-2023 End: 01-20-2023 Pain Management Barry Pickard [facility] Start: 01-17-2023 End: 01-17-2023 ambulatory ADÁN LALA Facility:[facility] Start: 12-12-2022 Refill John Liz MD Work [...] Start: 09-25-2022 End: 09-25-2022 ambulatory JOHN MODEL Facility:[facility] Start: 09-25-2022 End: 09-25-2022 Patient encounter procedure John Liz MD Work Phone: Rheumatology Comment on above: Seropositive rheumat oid arthritis (HCC) (Primary Dx); Medication monitoring encounter Start: 08-06-2022 End: 08-06-2022 ambulatory JOHN MODEL Facility:[facility] Start: 06-27-2022 End: 06-28-2022 ambulatory YNANA MILLER Facility:[facility] Start: 06-27-2022 End: 06-27-2022 Patient encounter procedure Yanna Miller MD Work Phone: Dermatology Comment on above: Psoriasis (Primary D x); Intertrigo Start: 06-26-2022 Telephone encounter John Liz MD Work Phone: Rheumatology Comment on above: Results Start: 06-26-2022 End: 06-27-2022 ambulatory MD Gerald Pham Facility:[facility] Start: 06-24-2022 End: 06-24-2022 ambulatory JOHN LIZ Facility:[facility] Start: 06-24-2022 End: 06-24-2022 Patient encounter procedure John Liz MD Work Phone: Rheumatology Comment on above: Bilateral hand swell ing (Primary Dx); Psoriasis Start: 06-19-2022 End: 06-20-[address] ADÁN LALA . Facility: Start: 05-30-2022 End: 05-31-2022 ambulatory Gerald Pham Facility:[facility] Start: 05-30-2022 End: 05-30-2022 Patient encounter procedure Gerald Pham [facility] Start: 05-14-2022 End: 05-15-[address] ADÁN LALA . Facility: Start: 05-09-2022 End: 05-10-2022 ambulatory Gerald Pham Facility:[facility] Start: 05-09-2022 End: 05-09-2022 Pain Management Gerald Pham [facility] Start: 04-25-2022 End: 04-26-[address] ADÁN LALA . Facility: Start: 03-29-2022 End: 03-30-[address] ADÁN LALA . Facility: Start: 03-20-2022 End: 03-21-2022 ambulatory Gerald Pham Facility:[facility] Start: 03-20-2022 End: 03-20-2022 Pain Management Gerald Pham [facility] Start: 01-23-2022 End: 01-23-2022 Pain Management Gerald Arangoumbcathleen [facility] Start: 11-20-2021 End: 11-20-2021 Patient [...] L5 TFESI- 90-100% relief. 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) Gerald Pham Dilation and curetta ge of uterus Gerald Pham Plan of Treatment Date Care Activity Detail Author Start: 12-20-2028 Urine microalbumin profile DTaP,Tdap,Td Vaccine (2 - Td or Tdap) [facility] Start: 01-17-2026 Diabetes Screening Diabetes Screenin [facility] Start: 09-25-2025 DIABETES SCREEN DIABETES SCREEN [facility] Start: 09-25-2025 Diabetes Screening Diabetes Screenin [facility] Start: 08-06-2025 DIABETES SCREEN DIABETES SCREEN [facility] Start: 06-24-2025 DIABETES SCREEN DIABETES SCREEN [facility] Start: 04-23-2023 End: 01-23-2024 CBC W Auto Differential panel - Blood CBC + DIFF Lab Routine Seropositive rheumatoid arthritis (HCC) Medication monitoring encounter Expected: 04/23/2023, Expires: 01/23/2024 [facility] Work Phone: Comment on above: Expected: 04/23/2023 , Expires: 01/23/2024 Start: 04-23-2023 End: 01-23-2024 Comprehensive metabolic 2000 panel - Serum or Plasma COMP METABOLIC PANEL Lab Routine Seropositive rheumatoid arthritis (HCC) Medication monitoring encounter Expected: 04/23/2023, Expires: 01/23/2024 [facility] Work Phone: Comment on above: Expected: 04/23/2023 , Expires: 01/23/2024 Start: 04-23-2023 End: 01-23-2024 Erythrocyte sedimentation rate SED RATE WESTERGREN Lab Routine Seropositive rheumatoid arthritis (HCC) Medication monitoring encounter Expected: 04/23/2023, Expires: 01/23/2024 [facility] Work Phone: Comment on above: Expected: 04/23/2023 , Expires: 01/23/2024 Start: 12-12-2022 End: 12-13-2023 CBC W Auto Differential panel - Blood CBC + DIFF Lab Routine Seropositive rheumatoid arthritis (HCC) Medication monitoring encounter Expected: 12/12/2022, Expires: 12/13/2023 [facility] Work Phone: Comment on above: Expected: 12/12/2022 , Expires: 12/13/2023 Start: 12-12-2022 End: 12-13-2023 Comprehensive metabolic 2000 panel - Serum or Plasma COMP METABOLIC PANEL Lab Routine Seropositive rheumatoid arthritis (HCC) Medication monitoring encounter Expected: 12/12/2022, Expires: 12/13/2023 [facility] Work Phone: Comment on above: Expected: 12/12/2022 , Expires: 12/13/2023 Start: 12-12-2022 End: 12-13-2023 Erythrocyte sedimentation rate SED RATE WESTERGREN Lab Routine Seropositive rheumatoid arthritis (HCC) Medication monitoring encounter Expected: 12/12/2022, Expires: 12/13/2023 [facility] Work Phone: Comment on above: Expected: 12/12/2022 , Expires: 12/13/2023 Start: 10-18-2022 Influenza vaccination C [facility] Start: 09-25-2022 End: 09-26-2023 Comprehensive metabolic 2000 panel - Serum or Plasma [facility] Work Phone: Comment on above: Expected: 09/25/2022 , Expires: 09/26/2023 Start: 09-25-2022 End: 09-26-2023 Erythrocyte sedimentation rate [facility] Work Phone: Comment on above: Expected: 09/25/2022 , Expires: 09/26/2023 Start: 06-26-2022 End: 06-27-2023 CBC W Auto Differential panel - Blood CBC + DIFF Lab Routine Inflammatory arthritis Medication monitoring encounter Expected: 06/26/2022, Expires: 06/27/2023 [facility] Work Phone: Comment on above: Expected: 06/26/2022 , Expires: 06/27/2023 Start: 06-26-2022 End: 08-26-2022 Chronic hepatitis differentiation between hepatitis B and C virus panel - Serum or Plasma HEP REMOTE PANEL BL Lab Routine Inflammatory arthritis Medication monitoring encounter Expected: 06/26/2022, Expires: 08/26/2022 [facility] Work Phone: Comment on above: Expected: 06/26/2022 , Expires: 08/26/2022 Start: 06-26-2022 End: 06-27-2023 Comprehensive metabolic 2000 panel - Serum or Plasma COMP METABOLIC PANEL Lab Routine Inflammatory arthritis Medication monitoring encounter Expected: 06/26/2022, Expires: 06/27/2023 [facility] Work Phone: Comment on above: Expected: 06/26/2022 , Expires: 06/27/2023 Start: 06-26-2022 End: 06-27-2023 Erythrocyte sedimentation rate SED RATE WESTERGREN Lab Routine Inflammatory arthritis Medication monitoring encounter Expected: 06/26/2022, Expires: 06/27/2023 [facility] Work Phone: Comment on above: Expected: 06/26/2022 , Expires: 06/27/2023 Start: 06-24-2022 End: 06-25-2023 C reactive protein [Mass/volume] in Serum or Plasma [facility] Work Phone: Comment on above: Expected: 06/24/2022 , Expires: 06/25/2023 Start: 06-24-2022 End: 08-24-2022 Comprehensive metabolic 2000 panel - Serum or Plasma [facility] Work Phone: Comment on above: Expected: 06/24/2022 , Expires: 08/24/2022 Start: 06-24-2022 End: 08-24-2022 Creatine kinase [Enzymatic activity/volume] in Serum or Plasma [facility] Work Phone: Comment on above: Expected: 06/24/2022 , Expires: 08/24/2022 Start: 06-24-2022 End: 06-25-2023 Cyclic citrullinated peptide IgG Ab [Units/volume] in Serum or Plasma [facility] Work Phone: Comment on above: Expected: 06/24/2022 , Expires: 06/25/2023 Start: 06-24-2022 End: 06-25-2023 Nuclear Ab [Presence] in Serum by Immunoassay [facility] Work Phone: Comment on above: Expected: 06/24/2022 , Expires: 06/25/2023 Start: 06-24-2022 End: 08-24-2022 PROTEIN ELECTROPHORESIS SERUM W/INTERP [facility] Work Phone: Comment on above: Expected: 06/24/2022 , Expires: 08/24/2022 Start: 06-24-2022 End: 06-25-2023 Rheumatoid factor [Units/volume] in Serum or Plasma [facility] Work Phone: Comment on above: Expected: 06/24/2022 , Expires: 06/25/2023 Start: 06-24-2022 End: 08-24-2022 Urate [Mass/volume] in Serum or Plasma [facility] Work Phone: Comment on above: Expected: 06/24/2022 , Expires: 08/24/2022 Start: 02-17-2022 ADVANCE DIRECTIVE DISCUSSION ADVANCE DIRECTIVE DISCUSSION [facility] Start: 02-17-2022 DEPRESSION ASSESSMENT DEPRESSION ASS ESSMENT [facility] Start: 09-28-2020 BONE DENSITY BONE DENSITY [facility] Start: 09-28-2020 Bone Density Screening Bone Density Screening [facility] Start: 09-28-2020 PNEUMOCOCCAL: 65+ (1 - PCV) PNEUMOCOCCAL: 65+ (1 - PCV) [facility] Start: 02-28-2017 Pneumococcal Vaccine : 65+ (2 - PCV) Pneumococcal Vaccine: 65+ (2 - PCV) [facility] Start: 2015 RSV Vaccine (1 - 1-d ose 60+ series) RSV Vaccine (1 - 1-dose 60+ series) [facility] Start: 09-28-2005 SHINGRIX VACCINE (1 of 2) BA GRIX VACCINE (1 of 2) [facility] Start: 09-28-2000 COLOGUARD (FIT-DNA) COLOGUARD (FIT-D NA) [facility] Start: 09-28-2000 Colonoscopy COLONOSCOPY [facility] Start: 09-28-2000 COLORECTAL CANCER SCREENING COLORECTAL CANCER SCREENING [facility] Start: 09-28-[address] COLONOGRAPHY [facility] Start: 09-28-2000 DIABETES SCREEN DIABETES SCREEN [facility] Start: 09-28-2000 FECAL OCCULT BLOOD FECAL OCCULT BLOO D [facility] Start: 09-28-2000 Lipid 1996 panel - S west or Plasma Lipid Screening [facility] Start: 09-28-2000 LIPID SCREEN LIPID SCREEN [facility] Start: 09-28-2000 SIGMOIDOSCOPY SIGMOIDOSCOPY [facility] Start: 1995 Mammography [facility] Start: 09-28-1974 SHINGRIX VACCINE (1 of 2) BA GRIX VACCINE (1 of 2) [facility] Start: 09-28-1974 Urine microalbumin profile [facility] Start: 09-28-1973 HEPATITIS C SCREENING HEPATITIS C SC JOSE [facility] Start: 09-28-1961 Pneumococcal Vaccine : 65+ (1 - PCV) Pneumococcal Vaccine: 65+ (1 - PCV) [facility] Start: 09-28-1961 PNEUMOCOCCAL: 65+ (1 - PCV) PNEUMOCOCCAL: 65+ (1 - PCV) [facility] Start: 09-28-1960 COVID-19 VACCINE (#1) COVID-19 VACCI NE (#1) [facility] Start: 03-31-1956 COVID-19 VACCINE (#1) COVID-19 VACCI NE (#1) [facility] CBC W Auto Different ial panel - Blood CBC + DIFF Lab Routine Bilateral hand swelling 06/24/2022 3:03 PM EDT [facility] Work Phone: End: 07-24-2023 Radiologic exam chest 2 views XR CHEST 2V FRONTAL/LAT Radiology Routine Bilateral hand swelling 1 Occurrences starting 06/24/2022 until 07/24/2023 [facility] Work Phone: Comment on above: 1 Occurrences starti ng 06/24/2022 until 07/24/2023 Radiologic exam ches t 2 views XR CHEST 2V FRONTAL/LAT Radiology Routine Bilateral hand swelling 06/24/2022 3:26 PM EDT [facility] Work Phone: [facility] Immunizations Immunization Date Immunization Notes Care Provider Foreign [facility] 12-20-2018 influenza virus vaccine, unspecified formulation John Liz MD Work Phone: [facility] 12-18-2018 influenza virus vaccine, live, attenuated, for intranasal use [facility] [place] Payers Date Payer Category Payer Worker's Compensation [id number] 2022 Worker's Compensation [id number] 2021 Medicaid MEDICAID [facility] MEDICAID [id number] 2021-Present [phone] [address] [place] [address] Medicaid [id number] 1959 Medicaid [id number] 1959 Medicare [id number] 1955 Unknown [id number] 3 1955 Unknown [id number] [id number] 3 1955 Unknown [id number] 2.16.840.1.471709.3.579.2.59 3 1955 Unknown [id number] [id number] 3 1955 Unknown [id number] 2.16.840.1.124864.3.579.2.72 7 1955 Unknown [id number] 2.16.840.1.159406.3.579.2.72 7 1955 Unknown [id number] [id number] 7 1955 Unknown [id number] 2.16.840.1.691374.3.579.2.72 7 1955 Unknown [id number] [id number] 7 1955 Unknown [id number] 7 Social History Date Type Detail Facility Start: 02-15-2021 Tobacco smoking status Heavy t obacco smoker (finding) [facility] Start: 06-23-2022 End: 06-24-2022 Sex Assigned At Female [facility] Tobacco smoking stat [facility] Tobacco smoking consumption unknown [facility] Work Phone: Start: 1955 Sex Assigned At Female [facility] Start: 06-23-2022 End: 06-24-2022 History of Social function [facility] Adult Depression Screening Assessment 2 [facility] Start: 06-23-2022 Gender identity Identifies as female gender (finding) [facility] Start: 06-23-2022 Sexual orientation Heterosexual (criselda rascon) [facility] Functional Status Date Assessment Result Facility 02-21-2023 Functional Status N/A [facility] 01-20-2023 Functional Status N/A [facility] 05-09-2022 Functional Status N/A [facility] 03-20-2022 Functional Status N/A [facility] 01-23-2022 Functional Status N/A [facility] 11-20-2021 Functional Status N/A [facility] 11-15-2021 Functional Status N/A [facility] Clinical Notes 03-20-2022 to 03-10-2023 Note Date & Type Note Facility 03-10-2023 Note HNO ID: [id number] Author: YANNA MILLER MD Service: ? Author [...] on the intergluteal cleft, buttocks, dorsal hands [facility] macerated plaques on the abdominal pannus A/P: [...] direct input. Yanna Miller MD Dermatology Staff [facility] 02-21-2023 Evaluation + Plan note Extrac joshua from: Title:Pain Managment Follow up Author:Nyasia Miller Date:02/21/23 Impression and Plan Patient is a 67-year-old female with a past medical history significant for a [facility] claim. The approved diagnosis codes are lumbosacral [...] injections. She is going to continue on Mesa given to her by her PCP. She is going to start Lyrica 50 mg twice daily. Potential side effects were discussed. How to use the medication was discussed. OARRS was reviewed. COLLETTE score: 46%. Follow-up in 1 month. Future Appointments Appointment Date:03/28/2023 02:15:00 PM Scheduled Provider:Nyasia Helton PA-C Location[facility] Appointment Type:Pain Management - Workmans Comp Follow U [facility]12-06-2023 NoteHNO ID: [id number] Author: John Liz MD Service: ? Author [...] showing osteoarthritis. Dr Lala her PCP from [facility] in [place] prescribed prednisone 40 mg/d x 5. Reduced [...] Future Standing Expiration Da (more content not included)...[facility] 01-22-2023 History of Present illness Narrative* [...] showing osteoarthritis. Dr Lala her PCP from [facility] in [place] prescribed prednisone 40 mg/d x 5. Reduced [...] mo John Liz MD [facility]12-[facility]2023 Note [id number] 12-12-2022 Miscellaneous Notes* Telephone Encounter - [...] Visit Type Date Time Department [facility] 01/22/2023 1:40 PM [facility] CBC: CBC Latest Ref Rng & [...] Instance) Lab Orders None documented in [facility] encounter[facility]09-[facility]23 Miscellaneous Notes* Telephone Encounter - Hallie Stallings - 11/08/2022 11:07 AM EDT Patient called in to let Dr. Miller that the triamcinolone (KENALOG) 0.025 % ointment does not work. Patient wants to know if she can be prescribed something else. ketoconazole (NIZORAL) 2 % cream is working well for the patient. documented in [facility] encounterDel[facility]09-21-2023 Miscellaneous Notes* Telephone Encounter - Doreen William - 11/07/2022 8:54 AM EDT Patient last seen 06/2022 RX Ketoconazole Please approve prescription and any additional refills and e-script to designated pharmacy. Thank you, Doreen William documented in this encounterDel[facility]09-12-2023 Miscellaneous Notes* Telephone Encounter - Lucinda [...] from 21 to 16. documented in this encounterDel[facility]08-16-2023 Miscellaneous Notes* Telephone Encounter - Karyn [...] feet and anklesare swelling Please call pt [phone] documented in this encounterDel[facility] Hospital08-09-2023 NoteHNO ID: [id number] Author: John Liz MD Service: ? Author [...] showing osteoarthritis. Dr Lala her PCP from [facility] in [place] prescribed prednisone 40 mg/d x 5. Reduced [...] RATE WESTERGREN Rv 3 mo John Liz [facility]08-09-2023 History of Present illness Narrative* John Liz [...] showing osteoarthritis. Dr Lala her PCP from [facility] in [place] prescribed prednisone 40 mg/d x 5. Reduced [...] mo John Liz MD documented in this encounterDel[facility]05-11-2023 NoteHNO ID: [id number] Author: Yanna Miller MD Service: ? Author [...] Lymph 1.00 - 4.00 k/uL 4.49 (H) Faulk% % 7.0 Abs Faulk <0.87 k/uL 1.50 (H) Eosin% % 0.0 [...] systemic rheumatologic management sugges (more content not included)...[facility]05-11-2023 History of Present illness Narrative* Yanna [...] Lymph 1.00 - 4.00 k/uL 4.49 (H) Faulk% % 7.0 Abs Faulk <0.87 k/uL 1.50 (H) Eosin% % 0.0 [...] arises. Yanna Miller MD documented in this encounterDelaware [facility] Hospital05-10-2023 Miscellaneous Notes* Telephone Encounter - Karyn [...] mail. She said please send Rx to [facility] pharmacy in [place], [place] on [address]. She also notes that her hands are stiff and swollen again. She stopped prednisone Friday (she is out of pills) and the stiffness and swelling came back this morning. Also - she made an appointment to see Derm at [facility]. Her appointment is tomorrow 06/27. 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 John Liz MD documented in this encounterDelaware [facility] Hospital05-08-2023 NoteHNO ID: [id number] Author: John Liz MD Service: ? Author [...] showing osteoarthritis. Dr Lala her PCP from [facility] in [place] prescribed prednisone 40 mg/d x 5. Reduced [...] which included preparing to see the patient, ohmu-fi-eohl patient care, completing clinical documentation, obtaining and/or reviewing separately obtained (more content not included)...[facility]05-08-2023 History of Present illness Narrative* John [...] showing osteoarthritis. Dr Lala her PCP from [facility] in [place] prescribed prednisone 40 mg/d x 5. Reduced [...] which included preparing to see the patient, dncz-ms-mzah patient care, completing clinical documentation, obtaining and/or reviewing separately obtained history, performing a medically appropriate examination, counseling and educating the pat ient/family/caregiver, and ordering medications, tests, or procedures. documented in this encounterDelaware [facility] Hospital03-25-2023 NoteHOSPITAL REGULATIONS: All Positive and Important [...] stenosis at the L4-5 foramen. I reviewed [employer] Automated Prescription Reporting System report on her [...] total. Gerald Pham M.D. lr Dictated: 05/09/2022 [id number] Transcribed: 05/10/2022 cc:Adán Lala M.D.[facility] SystemComment on above:Result Comment: Electronically Signed By: Gerald Pham MD\.br\Date and Time Signed: 05/11/22 18:51 [id number] Note [id number]:127[facility] Evaluation + Plan note Future Appointments Appointment Date:11/20/2021 08:00:00 AM Scheduled Provider:Cezar Coe MD [facility] Future Appointments Appointment Date:05/09/2022 02:30:00 PM Scheduled Provider:Gerald Pham MD Location:[facility] App[facility]ment Type:[facility] Future Appointments Appointment Date:06/26/2022 11:15:00 AM Scheduled Provider:Gerald Pham MD Location:[facility] Appointment Type:Pain Management - [facility]mans Comp [facility] Future Appointments Appointment Date:02/21/2023 03:15:00 PM Scheduled Provider:Nyasia Helton PA-C Location:[facility] Appointment Type:[facility] Management - [facility] ([facility] Diagnosis Bilateral hand swelling- Primary Psoriasis Other psoriasis [facility]* Diagnosis 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 Medication monitoring encounter Encounter for therapeutic drug monitoring documented in this encounter [facility]* Diagnosis Psoriasis- Primary Other psoriasis Intertrigo Other specified erythematous condition documented in this encounter [facility]* Diagnosis Seropositive rheumatoid arthritis (HCC)- Primary Rheumatoid arthritis Medication monitoring encounter Encounter for therapeutic drug monitoring documented in this encounter [facility]* Diagnosis Seropositive rheumatoid arthritis (HCC)- Primary Rheumatoid arthritis Medication monitoring encounter Encounter for therapeutic drug monitoring documented in this [facility] Narrative No data available for this section [facility] No data available for this section [facility] No data available for this section [facility] Reason for Referral Specialty Diagnoses / Procedures Referred By Contac t Referred To Contact Dermatology Diagnoses Psoriasis Procedures CONSULT TO DERMATOLOGY OFFICE/OUTPATIENT [facility] 60-74 MINUTES John Liz MD [address] [place] [address] Referral ID Status Reason Start Date Expiration Date Visits Requested Visits Authorized [id number] Authorized PCP Requested Referral 06/24/2022 06/24/2023 1 1 Specialty Diagnoses / Procedures Referred By Contac t Referred To Contact XR IMAGING Diagnoses Bilateral hand swelling Procedures XR FOOT GENERAL 3V AP/LAT/OBL BILATERAL RADEX FOOT COMPLETE MINIMUM 3 VIEWS John Liz MD [address] [place] [address] Xr Imaging Referral ID Status Reason Start Date Expiration Date V isits Requested Visits Authorized [id number] Closed Auto-Generate d Referral 06/24/2022 07/24/2023 1 1 Specialty Diagnoses / Procedures Referred By Contac t Referred To Contact XR IMAGING Diagnoses Bilateral hand swelling Procedures XR HAND/WRIST SURVEY ARTHRITIS 1V PA BILATERAL JOINT SURVEY SINGLE VIEW 2 OR MORE JOINTS John Liz MD [address] [place] [address] Xr Imaging Referral ID Status Reason Start Date Expiration Date V isits Requested Visits Authorized [id number] Closed Auto-Generate d Referral 06/24/2022 07/24/2023 1 1 Summary Purpose Family History No Family History Records Found No data available for this section No data available for this section No Family History Records FoundNo Family History Records Found Advance Directives No Advanced Directives Records FoundNo Advanced Directives Records FoundNo Advanced Directives Records Found Additional Source Comments Care Team (unrecognized sect ion and content) Bulb Packer Relationship Specialty Start Date End Date Eula Tyler [address] [place] [address] PCP - General Family Medicine 06/21/22 Eula Tyler [address] [place] [address] Referring Family Medicine 06/21/22 Bulb Packer Relationship Specialty Start Date End Date Eula Tyler [address] [place] [address] PCP - General Family Medicine 06/21/22 Eula Tyler [address] [place] [address] Referring Family Medicine 06/21/22 Bulb Packer Relationship Specialty Start Date End Date Eula Tyler [address] [place] [address] PCP - General Family Medicine 06/21/22 Eula Tyler [address] [place] [address] Referring Family Medicine 06/21/22 Bulb Packer Relationship Specialty Start Date End Date Eula Tyler [address] [place] [address] PCP - General Family Medicine 06/21/22 Eula Tyler [address] [place] [address] Referring Family Medicine 06/21/22 Bulb Packer Relationship Specialty Start Date End Date Eula Tyler [address] [place] [address] PCP - General Family Medicine 06/21/22 Eula Tyler [address] [place] [address] Referring Family Medicine 06/21/22 Bulb Packer Relationship Specialty Start Date End Date Eula Tyler PA [address] [place] [address] PCP - General Family Medicine 06/21/22 Eula Tyler PA [address] [place] [address] Referring Family Medicine 06/21/22 Bulb Packer Relationship Specialty Start Date End Date Eula Tyler PA [address] [place] [address] PCP - General Family Medicine 06/21/22 Eula Tyler PA [address] [place] [address] Referring Family Medicine 06/21/22 Bulb Packer Relationship Specialty Start Date End Date Eula Tyler PA [address] [place] [address] PCP - General Family Medicine 06/21/22 Eula Tyler PA [address] [place] [address] Referring Family Medicine 06/21/22 Bulb Packer Relationship Specialty Start Date End Date Eula Tyler PA [address] [place] [address] PCP - General Family Medicine 06/21/22 Eula Tyler PA [address] [facility] [address] [place] [address] Referring Family Medicine 06/21/22 Bulb Packer Relationship Specialty Start Date End Date Adán Lala MD [address] [place] [address] PCP - General Family Medicine 01/17/23 Eula Tyler PA [address] [facility] [address] [place] [address] Referring Family Medicine 06/21/22 Source Comments (unrecognize d section and content) In the event this informatio n is protected by the Federal Confidentiality of Alcohol and Drug Abuse Patient Records regulations: The Federal rules restrict any use of the information to criminally investigate or prosecute any alcohol or drug abuse patient.[facility] HospitalIn the event this information is protected by the Federal Confidentiality of Alcohol and Drug Abuse Patient Records regulations: The Federal rules restrict any use of the information to criminally investigate or prosecute any alcohol or drug abuse patient.[facility] HospitalIn the event this information is protected by the Federal Confidentiality of Alcohol and Drug Abuse Patient Records regulations: The Federal rules restrict any use of the information to criminally investigate or prosecute any alcohol or drug abuse patient.[facility] HospitalIn the event this information is protected by the Federal Confidentiality of Alcohol and Drug Abuse Patient Records regulations: The Federal rules restrict any use of the information to criminally investigate or prosecute any alcohol or drug abuse patient.[facility] HospitalIn the event this information is protected by the Federal Confidentiality of Alcohol and Drug Abuse Patient Records regulations: The Federal rules restrict any use of the information to criminally investigate or prosecute any alcohol or drug abuse patient.[facility] HospitalIn the event this information is protected by the Federal Confidentiality of Alcohol and Drug Abuse Patient Records regulations: The Federal rules restrict any use of the information to criminally investigate or prosecute any alcohol or drug abuse patient.[facility] HospitalIn the event this information is protected by the Federal Confidentiality of Alcohol and Drug Abuse Patient Records regulations: The Federal rules restrict any use of the information to criminally investigate or prosecute any alcohol or drug abuse patient.[facility] HospitalIn the event this information is protected by the Federal Confidentiality of Alcohol and Drug Abuse Patient Records regulations: The Federal rules restrict any use of the information to criminally investigate or prosecute any alcohol or drug abuse patient.[facility] HospitalIn the event this information is protected by the Federal Confidentiality of Alcohol and Drug Abuse Patient Records regulations: The Federal rules restrict any use of the information to criminally investigate or prosecute any alcohol or drug abuse patient.[facility] HospitalIn the event this information is protected [...] content) DATE CREATED AUTHOR 06/27/2022 [facility]y [facility] DATE CREATED AUTHOR AUTHOR'S ORGANIZ ATION 02/22/2023 [facility] DATE CREATED AUTHOR AUTHOR'S ORGANIZ ATION 03/21/2023 [facility] FOR RECORDS PERTAINING TO PATIENTS WHO [...] BE BASED ON THE PRIMARY CLINICAL RECORDS. [employer] provides no warranty or guarantee of the accuracy or completeness of information in this document.
== END 2023-03-24 12:57 | disposition home or self-care (01) ==
LOC: VC 12:56
PROVIDERS: PCP Radiology Diagnostic Radiology; Visit Provider Radiology Diagnostic Radiology
DX: I80.02 Phlebitis and thrombophlebitis of superficial vessels of left lower extremity (principal)
CPT/HCPCS: 93971; G0463

== ENCOUNTER 2023-03-26 12:56 | Outpatient (OUT) | payer MEDICARE, MEDICAID, SELFPAY ==
--- NOTE | 2023-03-26 13:02 | VEIN_ITS ---
[address] [address] Patient Name: DAVION HUMPHREYS MRN: [id number] date: 1955 Sex: F Assigned Patient Location: Current Patient Location: Accession/Order Number: [id number] Exam Date: 03/26/2023 13:15 Report Date: 03/26/2023 14:11 At the request of: WADE YU Procedure: VC INJ Foam Sclerosant WUS PROJECT DEVELOPER PROCEDURE: VC INJ Foam Sclerosant WUS PROJECT DEVELOPER COMPARISON: None. HISTORY: Pain due to varicose veins of bilateral legs I83.813 Pre-operative Diagnosis: CEAP class C3 venous insufficiency with pain, tenderness, edema and incompetent right saphenous and varicose vein(s), chronic venous insufficiency right leg secondary to venous incompetence Post-operative Diagnosis: CEAP class C3 venous insufficiency with pain, tenderness, edema and incompetent right saphenous and varicose vein(s), chronic venous insufficiency right leg secondary to venous incompetence Procedure Performed: 1. Ultrasound-guided microfoam chemical ablation with Varithenaregistered 2. Intraoperative ultrasound guidance Anesthesia: None Indications for Procedure: 67-year-old female who presents with a long history of lower extremity pain and swelling. The patient failed conservative medical therapy including medical compression stockings, exercise and analgesics. Prior procedures include endovenous laser ablation. Multiple incompetent varicosities of the right leg. Duplex scan showed reflux and enlarged diameters up to 5 mm. The patient underwent informed consent including management options where the complications of infection, bleeding, pain, and skin injury were discussed. Particular attention was spent discussing thrombus extension and deep vein thrombosis as well as the possibility of pulmonary embolus and treatment with oral or injectable blood thinners. Procedure: The patient walked to the procedure room. All applicable staff donned appropriate apparel. A procedure timeout was performed to confirm correct patient, correct extremity, correct procedure, and correct room set-up including presence of all applicable supplies, devices, and drugs. A duplex ultrasound, performed by myself confirmed the location and incompetence of branch saphenous varicosities and their course was marked on the skin together with the dilated tributaries. The extent of treatment of the vein and the associated varicosities was determined through ultrasound mapping. The skin was prepped and then punctured with a butterfly needle and advanced under ultrasound guidance. The Varithenaregistered canister was activated and the canister was primed and purged as required in the instructions for use. Varithenaregistered was drawn into a sterile syringe. Following injections were made: 2 cc injected into a 3 mm varicose vein medial ankle 6 cc injected into a 5 mm varicose vein medial distal lower leg 5 cc injected into a 4 mm varicose vein medial distal thigh Varithenaregistered was slowly administered at 0.5-1.0 cc/second with close observation by ultrasound of its course in the vessels. Total volume utilized was: 13cc. Following administration of Varithenaregistered the leg was elevated and the patient was asked to repeatedly dorsiflex the ankle to limit flow of Varithenaregistered into perforating veins. Once appropriate spasm had been confirmed in the treated veins, the vascular catheter was removed from the leg and light pressure was applied over the puncture site for hemostasis. The common femoral and deep superficial veins were then evaluated for flow and compressibility prior to dressing placement. The lower extremity was kept elevated at 45 degrees above the horizontal and cording material was applied over the saphenous segments and tributaries to allow for eccentric compression over the target vessels including the targeted saphenous vein(s). A multilayer dressing was applied consisting of foam pads, coban and thigh-high 20-30 mm Hg compression elastic support hose were placed on the patient. The leg was lowered only after compression had been applied and the patient was immediately ambulatory. The patient ambulated 10 minutes under supervision and was without apparent concerns at time of release. Post-care instructions include advising patient to keep post-treatment bandages in place and dry for 48 hours, avoid extended periods of inactivity, avoid heavy exercise for one week, wear compression stockings on the treated leg continuously for two weeks, to walk daily for 10 minutes over the next month. The patient was instructed to take an anti-inflammatory medicine as needed and to follow up for color duplex scan of the Saphenous veins, the treated branch saphenous varicosities, the adjacent deep veins, and additional treatment within 7 days. PERSONNEL: Itz Cheng RN Electronically authenticated by: WADE YU Date: 03/26/2023 14:11
--- OUTSIDE RECORDS SUMMARY | 2023-03-26 13:06 | XMS_ITS | CCD ---
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 Name Role Phone Adán Lala Primary Care Physician [phone] Eula Tyler Unavailable Eula Tyler Primary Care Provider [phone] DAI Jerez, DR MCCAIN Primary Care Unavailable [...] Unavailable HOY ., DR MCCAIN Attending Unavailable BOISE, DR WADE Lozada Consulting Unavailable HOY ., DR MCCAIN Consulting Unavailable HOY ., DR MCCAIN Primary Care Unavailable HOY ., DR MCCAIN Admitting Unavailable HOY ., DR MCCAIN Attending Unavailable YESENIA, DR SOFIE Shepherd Consulting Unavailable Eula Tyler Unavailable Eula Tyler Primary Care Provider Eula Vital Unavailable [phone] Eula Vital Primary Care Provider Adán Lala MD Primary Care Provider [phone] Felice Phamry Admitting Unavailable Zumbar Gerald Attending [...] Codeine; Translations: [CODEINE] Drug Allergy 06-27-2022 The [facility] Repository (8 sources) Codeine Drug Allergy 06-27-2022 GI Upset [facility] Medications Current Medications Medication Drug Class(es) [...] Start: 12-19-2022 take 2 tablets by mo [facility] once daily predniSONE (DELTASONE) 5 mg [...] ESTHER EVERY DAY Take 2 tablets by [facility] once daily. pregabalin 50 mg oral capsule (1 source) Start: 02-21-2023 End: 03-23-2023 take 1 capsule by mouth twice daily pregabalin 50 mg Cap 50 mg = 1 cap(s), Oral, BID, X 30 day(s), # 60 cap(s), Refills(s) 0, Pharmacy: [facility]/pharmacy #[id number], 158, cm, 02/21/23 15:08:00 EST, [...] TWICE DAILY FOR SKIN FOLDS triamcinolone acetonide 0.61411 mg/mg topical ointment (8 sources) Corticosteroid Start: [...] Wilian 03-17-2023 DAWSON Telephone (DARNELL) SHELLY WILSON ([id number]) 1955 F Date Time Provider Department 03/17/23 JOHN LIZ During your visit today, we recorded the following information about you: Elena Hoyt 03/17/2023 11:42 AM Signed Pt is calling and states that her knuckles and wrist have been swollen for the last two weeks. She has no foundry helper strength and she doesn't see Dr. Liz [...] to make a fist but unable to foundry helper things. Denies any joint redness or excessive warmth to skin. Takes OTC Tylenol regular strength 2 tabs once a day for pain which helps a little. Pharmacy [facility] [place] on [facility] in the vent a script is sent [...] Encounter Status:Closed by ELENA HOYT on 03/19/23 [facility] Tammi 03-10-2023 CNOV Office Visit (DERMMN ) SHELLY WILSON ([id number]) 1955 F Date Time Provider Department 03/10/23 [...] on the intergluteal cleft, buttocks, dorsal hands Uncertain macerated plaques on the abdominal pannus A/P: [...] mouth once (more content not included)... Normal [facility] CNPSammi 03-10-2023 CNPN Telephone (DERMMN) SHELLY WILSON ([id number]) 1955 F Date Time Provider Department 03/10/23 YANNA MILLER DERMMN During your visit today, we recorded the following information about you: Richi Blanc 03/10/2023 2:14 PM Signed I have sent PA form to [facility] for patients VTAMA. Sent electronically through [employer] DX used L40.9 Sims: [id number] Richi Blanc 03/10/2023 4:27 PM Signed Received [...] Faxed appeal with letter of necessity to [facility] @ [phone] Richi Blanc 03/13/2023 8:46 AM Signed Received APPROVAL for patient's VTAMA Document uploaded to chart. Dates reflect: 03/10/2023 until further notice Informing patient of approval through [employer]. Allergies As of Date: 03/10/2023 Noted Allergy [...] Status:Closed by HALLIE STALLINGS on 03/11/23 Normal [facility] Consent for Treatmenton Consent for Treatment [id number]#1. 00TIFF Normal [facility] Consultation Noteon 02-21-19 Consultation Note Patient: SHELLY [...] that she rates a 4/10. She has Nebo given to her by her PCP. She [...] day(s), # 60 cap(s), Refills(s) 0, Pharmacy: [facility]/pharmacy #[id number], 158, cm, 02/21/23 15:08:00 EST, [...] list: All Problems Hyperlipidemia / SNOMED CT 55201810 / Confirmed Hypertension / SNOMED CT 5315611218 / Confirmed Obesity / SNOMED CT 0461616900 / Confirmed Smoker / SNOMED CT 701055285 / Confirmed History of osteoarthritis / SNOMED CT 671710395 / Confirmed Resolved: Ganglion cyst of right wrist / SNOMED CT 914915570818573 Objective Measurements from flowsheet : Measurements 02/21/2023 [...] 5/5 lower extremity strength Integumentary: Warm, Dry, Uncertain. Injection site well-healed Neurologic: Alert, Oriented. Psychiatric: Cooperative, Appropriate mood & affect. Impression and Plan Patient is a 67-year-old female with a past medical history significant for a [facility] claim. The approved diagnosis codes are [...] injections. She is going to continue on Nebo given to her by her PCP. She is going to start Lyrica 50 mg twice daily. Potential side effects were discussed. How to use the medication was discussed. OARRS was reviewed. COLLETTE score: 46%. Follow-up in 1 month. Normal [facility] Comment on above: Result Comment: Elec tronically Signed By: Sunitha BRADY, Nyasia\.br\Date and Time Signed: 02/21/23 15:28 EST Legal Correspondence Officeo n 02-21-2023 Legal Correspondence Office [id number]#1.0 0TIFF Normal [facility] Office/Clinic Note-Physician on 02-21-2023 Office/Clinic Note-Physician [id number]#1.0 0TIFF Normal [facility] Patient Correspondenceon Patient Correspondence [id number]#1.0 0TIFF Normal [facility] Patient Correspondence [id number]#1.0 0TIFF Normal [facility] Patient Correspondence [id number]#1.0 0TIFF Normal [facility] Patient Correspondence [id number]#1.0 0TIFF [facility] Patient History Officeon Patient History Office [id number]#1.0 0TIFF [facility] Operative Reporton 3 Operative Report Patient: SHELLY [...] Correction: Diagnosis: spinal stenosis, lumbosacral region Normal [facility] Comment on above: Result Comment: Elec tronically Signed By: Neeraj HUDSON, Barry Means.br\Date and Time Signed: 01/28/23 12:16 EST LEONARDAon 01-22-2023 CNOV Office Visit (DARNELL ) SHELLY WILSON ([id number]) 1955 F Date Time Provider Department 01/22/23 [...] showing osteoarthritis. Dr Lala her PCP from [facility] in [place] prescribed prednisone 40 mg/d x 5. Reduced [...] See ophthalmology (more content not included)... Normal [facility] Consent for Procedure/Surger yon 01-20-2023 Consent for Procedure/Surgery [id number]#1. 00TIFF [facility] Consent for Treatmenton Consent for Treatment [id number]#1.0 0TIFF [facility] Discharge Instructionson Discharge Instructions [id number]#1. 00TIFF [facility] IntraOperative Documentson 1 03-23-2022 IntraOperative Documents [id number]#1. 00TIFF [facility] Main OR Intraoperative Recor don 01-20-2023 Main OR Intraoperative Record IntraOp Document Type FTPM Summary Primary Physician: Barry Pickard MD Finalized Date/Time: 01/20/23 13:46:44 Pt. Name: SHELLY HUMPHREYS/Sex: 1955 Female Med Rec #: [id number] Physician: Barry Pickard MD Financial #: [id number] Pt. Type: P Room/Bed: / Admit/Disch: 01/20/23 13:21:57 - Institution: Case Times FTPM Entry 1 Patient Times In Room 12/04/23 13:40:00 Out Room 01/20/23 13:46:00 Procedure Times Start 01/20/23 13:43:00 Stop 01/20/23 13:45:00 Anesthesia Times Last Modified By: Padmini Morejon RN 01/20/23 13:46:05 Case Attendance FTPM Entry 1 Entry 2 Entry 3 Case Attendee Neeraj HUDSON, Barry Morejon RN, Padmini Hernandez RN, dAdis Perez Role Performed Surgeon - Primary Leases And Land Supervisor - Primary Scrub - Primary Time In 01/20/23 13:40:00 01/20/23 13:40:00 01/20/23 13:40:00 Time Out 01/20/23 13:46:00 01/20/23 13:46:00 01/20/23 13:46:00 Procedure TRANSFORAMINAL EPIDURAL TRANSFORAMINAL EPIDURAL TRANSFORAMINAL EPIDURAL STEROID STEROID STEROID INJECTIO(Bilateral) INJECTIO(Bilateral) INJECTIO(Bilateral) Comments Last Modified By: Padmini Morejon RN, RN, Padmini Jimenez RN 01/20/23 13:46:06 01/20/23 13:46:06 01/20/23 13:46:06 Entry 4 Case Attendee Shannon Christian (R) Role Performed Editor House Organ Time In 01/20/23 13:40:00 Time Out 01/20/23 [...] and tissue Entry 1 Skin Integrity Intact, Uncertain, Warm, and Skin Abnormality No Dry Outcomes [...] Safety Strap, (more content not included)... Normal [facility] Main OR Preoperative Recordo n 01-20-2023 Main OR Preoperative Record Holding Area Document Type FTPM Summary Primary Physician: Barry Pickard MD Finalized Date/Time: 01/20/23 13:38:50 Pt. Name: SHELLY HUMPHREYS./Sex: 1955 Female Med Rec #: [id number] Physician: Barry Pickard MD Financial #: [id number] Pt. Type: P Room/Bed: / Admit/Disch: 01/20/23 [...] By: Suzette Ferrer RN 01/20/23 13:38 Normal [facility] CBC W Auto Differential pane l (Bld)on 01-17-2023 Basophils (Bld) [#/Vol] 0.12 10*3/uL High <0.11 [facility] Comment on above: Order Comment: Speci men Type: BLOOD SPECIMENOrdering Facility: Address: [address] [place] [address] Performed By: #### 5 7021-8 ####[facility] LABCLIA [id number] [place] [address] Basophils/100 WBC (Bld) 0.8 % Normal [facility] Comment on above: Order Comment: Speci men Type: BLOOD SPECIMENOrdering Facility: Address: [address] [place] [address] Performed By: #### 5 7021-8 ####[facility] LABCLIA [id number] [place] [address] Differential cell count method Nom (Bld) Auto Normal [facility] Comment on above: Order Comment: Speci men Type: BLOOD SPECIMENOrdering Facility: Address: [address] [place] [address] Performed By: #### 5 7021-8 ####[facility] LABCLIA [id number] [place] [address] Eosinophils (Bld) [#/Vol] 0.17 10*3/uL Normal <0.46 [facility] Comment on above: Order Comment: Speci men Type: BLOOD SPECIMENOrdering Facility: Address: [address] [place] [address] Performed By: #### 5 7021-8 ####[facility] LABCLIA [id number] [place] [address] Eosinophils/100 WBC (Bld) 1.1 % Normal [facility] Comment on above: Order Comment: Speci men Type: BLOOD SPECIMENOrdering Facility: Address: [address] [place] [address] Performed By: #### 5 7021-8 ####[facility] LABCLIA [id number] [place] [address] Erythrocyte distribution width (RBC) [Ratio] 13.2 % Normal 11.5-15.0 [facility] Comment on above: Order Comment: Speci men Type: BLOOD SPECIMENOrdering Facility: Address: [address] [place] [address] Performed By: #### 5 7021-8 ####[facility] LABCLIA [id number] [place] [address] Hematocrit (Bld) [Volume fraction] 44.1 % Normal 36.0-46.0 [facility] Comment on above: Order Comment: Speci men Type: BLOOD SPECIMENOrdering Facility: Address: [address] [place] [address] Performed By: #### 5 7021-8 ####[facility] LABCLIA [id number] [place] [address] Hemoglobin (Bld) [Mass/Vol] 14.4 g/dL Normal 11.5-15.5 [facility] Comment on above: Order Comment: Speci men Type: BLOOD SPECIMENOrdering Facility: Address: [address] [place] [address] Performed By: #### 5 7021-8 ####[facility] LABCLIA [id number] [place] [address] Immature granulocytes (Bld) [#/Vol] 0.12 10*3/uL High <0.10 [facility] Comment on above: Order Comment: Speci men Type: BLOOD SPECIMENOrdering Facility: Address: [address] [place], [place] [address] Performed By: #### 5 7021-8 ####[facility] LABCLIA [id number] [place] [address] Immature granulocytes/100 WBC (Bld) 0.8 % Normal [facility] Comment on above: Order Comment: Speci men Type: BLOOD SPECIMENOrdering Facility: Address: [address] [place] [address] Performed By: #### 5 7021-8 ####[facility] LABCLIA [id number] [place] [address] Lymphocytes (Bld) [#/Vol] 2.38 10*3/uL Normal 1.00-4.00 [facility] Comment on above: Order Comment: Speci men Type: BLOOD SPECIMENOrdering Facility: Address: [address] [place] [address] Performed By: #### 5 7021-8 ####[facility] LABCLIA [id number] [place] [address] Lymphocytes/100 WBC (Bld) 15.3 % Normal [facility] Comment on above: Order Comment: Speci men Type: BLOOD SPECIMENOrdering Facility: Address: [address] [place] [address] Performed By: #### 5 7021-8 ####[facility] LABCLIA [id number] [place] [address] MCH (RBC) [Entitic mass] 31.4 pg Normal 26.0-34.0 [facility] Comment on above: Order Comment: Speci men Type: BLOOD SPECIMENOrdering Facility: Address: [address] [place] [address] Performed By: #### 5 7021-8 ####[facility] LABCLIA [id number] [place] [address] MCHC (RBC) [Mass/Vol] 32.7 g/dL Normal 30.5-36.0 [facility] Comment on above: Order Comment: Speci men Type: BLOOD SPECIMENOrdering Facility: Address: [address] [place] [address] Performed By: #### 5 7021-8 ####[facility] LABCLIA [id number] [place] [address] MCV (RBC) [Entitic vol] 96.3 fL Normal 80.0-100.0 [facility] Comment on above: Order Comment: Speci men Type: BLOOD SPECIMENOrdering Facility: Address: [address] [place] [address] Performed By: #### 5 7021-8 ####[facility] LABCLIA [id number] [place] [address] Monocytes (Bld) [#/Vol] 1.19 10*3/uL High <0.87 [facility] Comment on above: Order Comment: Speci men Type: BLOOD SPECIMENOrdering Facility: Address: [address] [place] [address] Performed By: #### 5 7021-8 ####[facility] LABCLIA [id number] [place] [address] Monocytes/100 WBC (Bld) 7.7 % Normal [facility] Comment on above: Order Comment: Speci men Type: BLOOD SPECIMENOrdering Facility: Address: [address] [place] [address] Performed By: #### 5 7021-8 ####[facility] LABCLIA [id number] [place] [address] Neutrophils (Bld) [#/Vol] 11.55 10*3/uL High 1.45-7.50 [facility] Comment on above: Order Comment: Speci men Type: BLOOD SPECIMENOrdering Facility: Address: [address] [place] [address] Performed By: #### 5 7021-8 ####[facility] LABCLIA [id number] [place] [address] Neutrophils/100 WBC (Bld) 74.3 % Normal [facility] Comment on above: Order Comment: Speci men Type: BLOOD SPECIMENOrdering Facility: Address: [address] [place] [address] Performed By: #### 5 7021-8 ####[facility] LABCLIA [id number] [place] [address] Nucleated RBC (Bld) [#/Vol] 10*3/uL Normal <0.01 [facility] Comment on above: Order Comment: Speci men Type: BLOOD SPECIMENOrdering Facility: Address: [address] [place] [address] Performed By: #### 5 7021-8 ####[facility] LABIA [id number] [place] [address] Nucleated RBC/100 WBC (Bld) [Ratio] 0.0 /100 WBC Normal [facility] Comment on above: Order Comment: Speci men Type: BLOOD SPECIMENOrdering Facility: Address: [address] [place] [address] Performed By: #### 5 7021-8 ####[facility] LABCLIA [id number] [place] [address] Platelet mean volume (Bld) [Entitic vol] 8.8 fL Low 9.0-12.7 [facility] Comment on above: Order Comment: Speci men Type: BLOOD SPECIMENOrdering Facility: Address: [address] [place] [address] Performed By: #### 5 7021-8 ####[facility] LABIA [id number] [place] [address] Platelets (Bld) [#/Vol] 413 10*3/uL High 150-400 [facility] Comment on above: Order Comment: Speci men Type: BLOOD SPECIMENOrdering Facility: Address: [address] [place] [address] Performed By: #### 5 7021-8 ####[facility] LABCLIA [id number] [place] [address] RBC (Bld) [#/Vol] 4.58 10*6/uL Normal 3.90-5.20 [facility] Comment on above: Order Comment: Speci men Type: BLOOD SPECIMENOrdering Facility: Address: [address] [place] [address] Performed By: #### 5 7021-8 ####[facility] LABCLIA [id number] [place] [address] WBC (Bld) [#/Vol] 15.53 10*3/uL High 3.70-11.00 [facility] Comment on above: Order Comment: Speci men Type: BLOOD SPECIMENOrdering Facility: Address: [address] [place] [address] Performed By: #### 5 7021-8 ####[facility] LABCLIA [id number] [place] [address] Comprehensive metabolic 2000 panelon 01-17-2023 Albumin [Mass/Vol] 4.5 g/dL Normal 3.9-4.9 [facility] Comment on above: Order Comment: Speci men Type: BLOOD SPECIMENOrdering Facility: Address: [address] [place] [address] Performed By: #### 2 4323-8 ####[facility] LABCLIA [id number] [place] [address] ALP [Catalytic activity/Vol] 75 U/L Normal 34-123 [facility] Comment on above: Order Comment: Speci men Type: BLOOD SPECIMENOrdering Facility: Address: [address] [place] [address] Performed By: #### 2 4323-8 ####[facility] LABCLIA [id number] [place] [address] ALT [Catalytic activity/Vol] 12 U/L Normal 7-38 [facility] Comment on above: Order Comment: Speci men Type: BLOOD SPECIMENOrdering Facility: Address: [address] [place] [address] Performed By: #### 2 4323-8 ####[facility] LABCLIA [id number] [place] [address] Anion gap [Moles/Vol] 9 mmol/L Normal 9-18 [facility] Comment on above: Order Comment: Speci men Type: BLOOD SPECIMENOrdering Facility: Address: [address] [place] [address] Performed By: #### 2 4323-8 ####[facility] LABCLIA [id number] [place] [address] AST [Catalytic activity/Vol] 17 U/L Normal 13-35 [facility] Comment on above: Order Comment: Speci men Type: BLOOD SPECIMENOrdering Facility: Address: [address] [place] [address] Performed By: #### 2 4323-8 ####[facility] LABCLIA [id number] [place] [address] Bilirubin [Mass/Vol] 0.4 mg/dL Normal 0.2-1.3 [facility] Comment on above: Order Comment: Speci men Type: BLOOD SPECIMENOrdering Facility: Address: [address] [place] [address] Performed By: #### 2 4323-8 ####[facility] LABCLIA [id number] [place] [address] Calcium [Mass/Vol] 9.6 mg/dL Normal 8.5-10.2 [facility] Comment on above: Order Comment: Speci men Type: BLOOD SPECIMENOrdering Facility: Address: [address] [place] [address] Performed By: #### 2 4323-8 ####[facility] LABCLIA [id number] [place] [address] Chloride [Moles/Vol] 101 mmol/L Normal 97-105 [facility] Comment on above: Order Comment: Speci men Type: BLOOD SPECIMENOrdering Facility: Address: [address] [place] [address] Performed By: #### 2 4323-8 ####[facility] LABCLIA [id number] [place] [address] CO2 [Moles/Vol] 28 mmol/L Normal 22-30 [facility] Comment on above: Order Comment: Speci men Type: BLOOD SPECIMENOrdering Facility: Address: [address] [place] [address] Performed By: #### 2 4323-8 ####[facility] LABCLIA [id number] [place] [address] Creatinine [Mass/Vol] 0.67 mg/dL Normal 0.58-0.96 [facility] Comment on above: Order Comment: Speci men Type: BLOOD SPECIMENOrdering Facility: Address: [address] [place] [address] Performed By: #### 2 4323-8 ####[facility] LABCLIA [id number] [place] [address] Creatinine and Glomerular filtration rate.predicted panel (S/P/Bld) 96 mL/min/1.73m??? Normal >=60 [facility] Comment on above: Order Comment: Speci men Type: BLOOD SPECIMENOrdering Facility: Address: [address] [place] [address] Result Comment: Carmen mated Glomerular Filtration Rate [...] actual GFR. Performed By: #### 2 4323-8 ####[facility] LABCLIA [id number] [place] [address] Glucose [Mass/Vol] 104 mg/dL High 74-99 [facility] Comment on above: Order Comment: Speci men Type: BLOOD SPECIMENOrdering Facility: Address: [address] [place] [address] Result Comment: The [place] [employer] (ADA) provides guidance for cutoff [...] Standards of Medical Care in Diabetes 2016, [place] [employer]. Diabetes Care. 2016.39(Suppl 1). Performed By: #### 2 4323-8 ####[facility] LABCLIA [id number] [place] [address] Potassium [Moles/Vol] 4.1 mmol/L Normal 3.7-5.1 [facility] Comment on above: Order Comment: Speci men Type: BLOOD SPECIMENOrdering Facility: Address: [address] [place] [address] Performed By: #### 2 4323-8 ####[facility] LABCLIA [id number] [place] [address] Protein [Mass/Vol] 6.9 g/dL Normal 6.3-8.0 [facility] Comment on above: Order Comment: Speci men Type: BLOOD SPECIMENOrdering Facility: Address: [address] [place] [address] Performed By: #### 2 4323-8 ####[facility] LABCLIA [id number] [place] [address] Sodium [Moles/Vol] 138 mmol/L Normal 136-144 [facility] Comment on above: Order Comment: Speci men Type: BLOOD SPECIMENOrdering Facility: Address: [place] [address] Performed By: #### 2 4323-8 ####[facility] LABCLIA [id number] [place] [address] Urea nitrogen [Mass/Vol] 11 mg/dL Normal 7-21 [facility] Comment on above: Order Comment: Speci men Type: BLOOD SPECIMENOrdering Facility: Address: [address] [facility] [place] [address] Performed By: #### 2 4323-8 ####[facility] LABCLIA [id number] [place] [address] ESR Westergren method (Bld) [Velocity]on 01-17-2023 ESR (Bld) [Velocity] 12 mm/h Normal 0-20 [facility] Comment on above: Order Comment: Speci men Type: BLOOD SPECIMENOrdering Facility: Address: [place] [address] Performed By: #### 4 537-7 ####[facility] LABCLIA [id number] [facility] [id number] [address] [place] Patient Correspondenceon Patient Correspondence [id number]#1.0 0TIFF Normal [facility] Workers' Comp Officeon 01-02 Workers' Comp Office [id number]#5.0 0TIFF Normal [facility] CNPSammi 11-08-2022 TRACYN Telephone (DERMMN) SHELLY WILSON ([id number]) 1955 F Date Time Provider Department 11/08/22 [...] Fully Assessed Reason for Visit: Patient Question [9187] Prescriptions as of 11/11/2022 - ketoconazole (NIZORAL) [...] Encounter Status:Closed by HALLIE STALLINGS on 11/08/22 [facility] 10-28-2022 CNPN Telephone (DARNELL) SHELLY WILSON ([id number]) 1955 F Date Time Provider Department 10/28/22 [...] Encounter Status:Closed by LUCINDA AGARWAL on 10/29/22 [facility] Wilian 10-01-2022 CNPN Telephone (DARNELL) SHELLY WILSON ([id number]) 1955 F Date Time Provider Department 10/01/22 JOHN LIZ During your visit today, we recorded the following information about you: Liana Lynn 10/01/2022 4:14 PM Signed Pt called to let dr. Liz know since she changed how she takes her medications her feet and ankles are swelling Please call pt [phone] John Liz MD 10/02/2022 10:53 AM Signed [...] Status:Closed by KARYN KOENIG on 10/02/22 Normal [facility] CBC W Auto Differential pane l (Bld)on 09-25-2022 Basophils (Bld) [#/Vol] 0.08 10*3/uL <0.11 k/uL [facility] Basophils/100 WBC (Bld) 0.4 % [facility] Differential cell count method Nom (Bld) Auto [facility] Eosinophils (Bld) [#/Vol] <0.46 k/uL [facility] Eosinophils/100 WBC (Bld) 0.1 % [facility] Erythrocyte distribution width (RBC) [Ratio] 14.6 % 11.5 - 15.0 % [facility] Hematocrit (Bld) [Volume fraction] 46.6 % High 36.0 - 46.0 % [facility] Hemoglobin (Bld) [Mass/Vol] 15.4 g/dL 11.5 - 15.5 g/dL [facility] Immature granulocytes (Bld) [#/Vol] 0.23 10*3/uL High <0.10 k/uL [facility] Immature granulocytes/100 WBC (Bld) 1.2 % [facility] Lymphocytes (Bld) [#/Vol] 1.81 10*3/uL 1.00 - 4.00 k/uL [facility] Lymphocytes/100 WBC (Bld) 9.3 % [facility] MCH (RBC) [Entitic mass] 30.8 pg 26.0 - 34.0 pg [facility] MCHC (RBC) [Mass/Vol] 33.0 g/dL 30.5 - 36.0 g/dL [facility] MCV (RBC) [Entitic vol] 93.2 fL 80.0 - 100.0 fL [facility] Monocytes (Bld) [#/Vol] 1.05 10*3/uL High <0.87 k/uL [facility] Monocytes/100 WBC (Bld) 5.4 % [facility] Neutrophils (Bld) [#/Vol] 16.19 10*3/uL High 1.45 - 7.50 k/uL [facility] Neutrophils/100 WBC (Bld) 83.6 % [facility] Nucleated RBC (Bld) [#/Vol] <0.01 k/uL [facility] Nucleated RBC/100 WBC (Bld) [Ratio] 0.0 /100 WBC [facility] Platelet mean volume (Bld) [Entitic vol] 9.4 fL 9.0 - 12.7 fL [facility] Platelets (Bld) [#/Vol] 454 10*3/uL High 150 - 400 k/uL [facility] RBC (Bld) [#/Vol] 5.00 10*6/uL 3.90 - 5.2 0 m/uL [facility] WBC (Bld) [#/Vol] 19.38 10*3/uL High 3.70 - 11 .00 k/uL [facility] Basophils (Bld) [#/Vol] 0.08 10*3/uL Normal <0.11 [facility] Comment on above: Order Comment: Speci men Type: BLOOD SPECIMENOrdering Facility: Address: [address] [address] Performed By: #### 5 7021-8, 4537-7 ####[facility] LABCLIA [id number] [address] OF [facility] Basophils/100 WBC (Bld) 0.4 % Normal [facility] Comment on above: Order Comment: Speci men Type: BLOOD SPECIMENOrdering Facility: Address: [address] [address] Performed By: #### 5 7021-8, 4536-7 ####[facility] LABCLIA [id number] [place] [address] [place] Differential cell count method Nom (Bld) Auto Normal [facility] Comment on above: Order Comment: Speci men Type: BLOOD SPECIMENOrdering Facility: Address: [address] [place], [place] [address] Performed By: #### 5 7021-8, 7 ####[facility] LABCLIA [id number] [place] [address] [place] Eosinophils (Bld) [#/Vol] 10*3/uL Normal <0.46 [facility] Comment on above: Order Comment: Speci men Type: BLOOD SPECIMENOrdering Facility: Address: [address] [place], [place] [address] Performed By: #### 5 7021-8, 7 ####[facility] LABCLIA [id number] [place] [address] [place] Eosinophils/100 WBC (Bld) 0.1 % Normal [facility] Comment on above: Order Comment: Speci men Type: BLOOD SPECIMENOrdering Facility: Address: [address] [place], [place] [address] Performed By: #### 5 7021-8, 7 ####[facility] LABCLIA [id number] [place] [address] [place] Erythrocyte distribution width (RBC) [Ratio] 14.6 % Normal 11.5-15.0 [facility] Comment on above: Order Comment: Speci men Type: BLOOD SPECIMENOrdering Facility: Address: [address] Performed By: #### 5 7021-8, 4536-7 ####[facility] LABCLIA [id number] [place] [id number] [place] Hematocrit (Bld) [Volume fraction] 46.6 % High 36.0-46.0 [facility] Comment on above: Order Comment: Speci men Type: BLOOD SPECIMENOrdering Facility: Address: [address] [place] [address] Performed By: #### 5 7021-8, 4537-7 ####[facility] LABCLIA [id number] [place] [address] [place] Hemoglobin (Bld) [Mass/Vol] 15.4 g/dL Normal 11.5-15.5 [facility] Comment on above: Order Comment: Speci men Type: BLOOD SPECIMENOrdering Facility: Address: [address] [place] [address] Performed By: #### 5 7021-8, 7-7 ####[facility] LABCLIA [id number] [place] [address] [place] Immature granulocytes (Bld) [#/Vol] 0.23 10*3/uL High <0.10 [facility] Comment on above: Order Comment: Speci men Type: BLOOD SPECIMENOrdering Facility: Address: [address] [place], [place] [address] Performed By: #### 5 7021-8, 7-7 ####[facility] LABCLIA [id number] [place] [address] [place] Immature granulocytes/100 WBC (Bld) 1.2 % Normal [facility] Comment on above: Order Comment: Speci men Type: BLOOD SPECIMENOrdering Facility: Address: [address] [place], [place] [address] Performed By: #### 5 7021-8, 7-7 ####[facility] LABCLIA [id number] [place] [address] [place] Lymphocytes (Bld) [#/Vol] 1.81 10*3/uL Normal 1.00-4.00 [facility] Comment on above: Order Comment: Speci men Type: BLOOD SPECIMENOrdering Facility: Address: [address] [place] [address] Performed By: #### 5 7021-8, 4536-7 ####[facility] LABCLIA [id number] [address] [place] [facility] Lymphocytes/100 WBC (Bld) 9.3 % Normal [facility] Comment on above: Order Comment: Speci men Type: BLOOD SPECIMENOrdering Facility: Address: [address] [place] [address] Performed By: #### 5 7021-8, 7 ####[facility] LABCLIA [id number] [place] [address] [place] MCH (RBC) [Entitic mass] 30.8 pg Normal 26.0-34.0 [facility] Comment on above: Order Comment: Speci men Type: BLOOD SPECIMENOrdering Facility: Address: [address] [place], [place] [address] Performed By: #### 5 7021-8, 7 ####[facility] LABIA [id number] [address] [place] MCHC (RBC) [Mass/Vol] 33.0 g/dL Normal 30.5-36.0 [facility] Comment on above: Order Comment: Speci men Type: BLOOD SPECIMENOrdering Facility: Address: [address] [place], [place] [address] Performed By: #### 5 7021-8, 4536-7 ####[facility] LABCLIA [id number] [address] [place] MCV (RBC) [Entitic vol] 93.2 fL Normal 80.0-100.0 [facility] Comment on above: Order Comment: Speci men Type: BLOOD SPECIMENOrdering Facility: Address: [address] Performed By: #### 5 7021-8, 4536-7 ####[facility] LABCLIA [id number] [place] [address] [place] Monocytes (Bld) [#/Vol] 1.05 10*3/uL High <0.87 [facility] Comment on above: Order Comment: Speci men Type: BLOOD SPECIMENOrdering Facility: Address: [address] Performed By: #### 5 7021-8, 4536-7 ####[facility] LABCLIA [id number] [place] [address] [place] Monocytes/100 WBC (Bld) 5.4 % Normal [facility] Comment on above: Order Comment: Speci men Type: BLOOD SPECIMENOrdering Facility: Address: [address] Performed By: #### 5 7021-8, 4536-7 ####[facility] LABIA [id number] [place] [address] [place] Neutrophils (Bld) [#/Vol] 16.19 10*3/uL High 1.45-7.50 [facility] Comment on above: Order Comment: Speci men Type: BLOOD SPECIMENOrdering Facility: Address: [address] Performed By: #### 5 7021-8, 4536-7 ####[facility] LABCLIA [id number] [place] [address] [place] Neutrophils/100 WBC (Bld) 83.6 % Normal [facility] Comment on above: Order Comment: Speci men Type: BLOOD SPECIMENOrdering Facility: Address: [address] [place], [place] [address] Performed By: #### 5 7021-8, 4536-7 ####[facility] LABCLIA [id number] [place] [address] [place] Nucleated RBC (Bld) [#/Vol] 10*3/uL Normal <0.01 [facility] Comment on above: Order Comment: Speci men Type: BLOOD SPECIMENOrdering Facility: Address: [address] [place], [place] [address] Performed By: #### 5 7021-8, 4536-7 ####[facility] LABCLIA [id number] [place] [address] [place] Nucleated RBC/100 WBC (Bld) [Ratio] 0.0 /100 WBC Normal [facility] Comment on above: Order Comment: Speci men Type: BLOOD SPECIMENOrdering Facility: Address: [address] [place], [place] [address] Performed By: #### 5 7021-8, 4536-7 ####[facility] LABCLIA [id number] [place] [address] [place] Platelet mean volume (Bld) [Entitic vol] 9.4 fL Normal 9.0-12.7 [facility] Comment on above: Order Comment: Speci men Type: BLOOD SPECIMENOrdering Facility: Address: [address] [place], [place] [address] Performed By: #### 5 7021-8, 7 ####[facility] LABCLIA [id number] [place] [address] [place] Platelets (Bld) [#/Vol] 454 10*3/uL High 150-400 [facility] Comment on above: Order Comment: Speci men Type: BLOOD SPECIMENOrdering Facility: Address: [address] [place], [place] [address] Performed By: #### 5 7021-8, 7-7 ####[facility] LABCLIA [id number] [place] [address] [place] RBC (Bld) [#/Vol] 5.00 10*6/uL Normal 3.90-5.20 [facility] Comment on above: Order Comment: Speci men Type: BLOOD SPECIMENOrdering Facility: Address: [address] [place] [address] Performed By: #### 5 7021-8, 4537-7 ####[facility] LABCLIA [id number] [place] [address] [place] WBC (Bld) [#/Vol] 19.38 10*3/uL High 3.70-11.00 [facility] Comment on above: Order Comment: Speci men Type: BLOOD SPECIMENOrdering Facility: Address: [address] [place] [address] Performed By: #### 5 7021-8, 4537-7 ####[facility] LABCLIA [id number] [address] [place] CNOVon 09-25-2022 CNOV Office Visit (DARNELL ) SHELLY WILSON ([id number]) 1955 F Date Time Provider Department 09/25/22 [...] showing osteoarthritis. Dr Lala her PCP from [facility] in [place] prescribed prednisone 40 mg/d x 5. Reduced [...] John Liz MD Referring Provider: JOHN LIZ [[id number]] Allergies As of Date: 09/25/2022 Noted Allergy Reaction CODEINE 06/27/2022 8 - GI Upset Date Reviewed: 09/25/2022 Reviewed by: Chantell Minaya (more content not included)... Normal [facility] Comprehensive metabolic 2000 panelon 09-25-2022 Albumin [Mass/Vol] 4.2 g/dL Normal 3.9-4.9 [facility] Comment on above: Order Comment: Speci men Type: BLOOD SPECIMENOrdering Facility: Address: [address] [address] Performed By: #### 2 4323-8 ####[facility] LABCLIA [id number] [place] [address] [place] ALP [Catalytic activity/Vol] 72 U/L Normal 34-123 [facility] Comment on above: Order Comment: Speci men Type: BLOOD SPECIMENOrdering Facility: Address: [address] [address] Performed By: #### 2 4323-8 ####[facility] LABCLIA [id number] [place] [address] [place] ALT [Catalytic activity/Vol] 28 U/L Normal 7-38 [facility] Comment on above: Order Comment: Speci men Type: BLOOD SPECIMENOrdering Facility: Address: [address] [address] Performed By: #### 2 4323-8 ####[facility] LABCLIA [id number] [place] [address] [place] Anion gap [Moles/Vol] 12 mmol/L Normal 9-18 [facility] Comment on above: Order Comment: Speci men Type: BLOOD SPECIMENOrdering Facility: Address: [address] [address] Performed By: #### 2 4323-8 ####[facility] LABCLIA [id number] [place] [address] [place] AST [Catalytic activity/Vol] 24 U/L Normal 13-35 [facility] Comment on above: Order Comment: Speci men Type: BLOOD SPECIMENOrdering Facility: Address: [address] [place] [address] Performed By: #### 2 4323-8 ####[facility] LABCLIA [id number] [place] [address] [place] Bilirubin [Mass/Vol] 0.4 mg/dL Normal 0.2-1.3 [facility] Comment on above: Order Comment: Speci men Type: BLOOD SPECIMENOrdering Facility: Address: [address] [place] [address] Performed By: #### 2 4323-8 ####[facility] LABCLIA [id number] [place] [address] [place] Calcium [Mass/Vol] 9.9 mg/dL Normal 8.5-10.2 [facility] Comment on above: Order Comment: Speci men Type: BLOOD SPECIMENOrdering Facility: Address: [address] [place] [address] Performed By: #### 2 4323-8 ####[facility] LABCLIA [id number] [place] [address] [place] Chloride [Moles/Vol] 102 mmol/L Normal 97-105 [facility] Comment on above: Order Comment: Speci men Type: BLOOD SPECIMENOrdering Facility: Address: [address] [place] [address] Performed By: #### 2 4323-8 ####[facility] LABCLIA [id number] [place] [address] [place] CO2 [Moles/Vol] 26 mmol/L Normal 22-30 [facility] Comment on above: Order Comment: Speci men Type: BLOOD SPECIMENOrdering Facility: Address: [address] [address] Performed By: #### 2 4323-8 ####[facility] [id number] [address] STATES OF [facility] Creatinine [Mass/Vol] 0.62 mg/dL Normal 0.58-0.96 [facility] Comment on above: Order Comment: Speci men Type: BLOOD SPECIMENOrdering Facility: Address: [address] [address] Performed By: #### 2 4323-8 ####[facility] [id number] [address] OF [facility] ESTIMATED GLOMERULAR FILTRATION RATE 98 mL/min/1.73m??? Normal >=60 [facility] Comment on above: Order Comment: Speci men Type: BLOOD SPECIMENOrdering Facility: Address: [address] [address] Result Comment: Carmen mated Glomerular Filtration Rate [...] actual GFR. Performed By: #### 2 4323-8 ####[facility] [id number] [place] [address] [place] Glucose [Mass/Vol] 101 mg/dL High 74-99 [facility] Comment on above: Order Comment: Roberti men Type: BLOOD SPECIMENOrdering Facility: Address: [address] [place] [address] Result Comment: The [place] [employer] (ADA) provides guidance for cutoff [...] Standards of Medical Care in Diabetes 2016, [place] [employer]. Diabetes Care. 2016.39(Suppl 1). Performed By: #### 2 4323-8 ####[facility] LABCLIA [id number] [place] [address] [place] Potassium [Moles/Vol] 4.6 mmol/L Normal 3.7-5.1 [facility] Comment on above: Order Comment: Speci men Type: BLOOD SPECIMENOrdering Facility: Address: [address] [place] [address] Performed By: #### 2 4323-8 ####[facility] LABIA [id number] [place] [address] [place] Protein [Mass/Vol] 6.8 g/dL Normal 6.3-8.0 [facility] Comment on above: Order Comment: Roberti men Type: BLOOD SPECIMENOrdering Facility: Address: [address] [address] Performed By: #### 2 4323-8 ####[facility] LABIA [id number] [place] [address] [place] Sodium [Moles/Vol] 140 mmol/L Normal 136-144 [facility] Comment on above: Order Comment: Speci men Type: BLOOD SPECIMENOrdering Facility: Address: [address] [address] Performed By: #### 2 4323-8 ####[facility] LABCLIA [id number] [place] [address] [place] Urea nitrogen [Mass/Vol] 15 mg/dL Normal 7-21 [facility] Comment on above: Order Comment: Speci men Type: BLOOD SPECIMENOrdering Facility: Address: [address] [place] [address] Performed By: #### 2 4323-8 ####[facility] LABCLIA [id number] [address] OF [facility] ESR Westergren method (Bld) [Velocity]on 09-25-2022 ESR (Bld) [Velocity] 15 mm/h Normal 0-20 [facility] Comment on above: Order Comment: Speci men Type: BLOOD SPECIMENOrdering Facility: Address: [address] [place] [address] Performed By: #### 5 7021-8, 4537-7 ####[facility] LABCLIA [id number] [address] OF [facility] CBC W Auto Differential pane l (Bld)on 08-06-2022 Basophils (Bld) [#/Vol] 0.11 10*3/uL High <0.11 [facility] Comment on above: Order Comment: Speci men Type: BLOOD SPECIMENOrdering Facility: Address: [address] [place] [address] Performed By: #### 5 7021-8 ####[facility] LABCLIA [id number] [place] [address] Basophils/100 WBC (Bld) 0.6 % Normal [facility] Comment on above: Order Comment: Speci men Type: BLOOD SPECIMENOrdering Facility: Address: [address] [place] [address] Performed By: #### 5 7021-8 ####[facility] LABCLIA [id number] [place] [address] Differential cell count method Nom (Bld) Auto Normal [facility] Comment on above: Order Comment: Speci men Type: BLOOD SPECIMENOrdering Facility: Address: [address] [address] Performed By: #### 5 7021-8 ####[facility] LABCLIA [id number] [place] [address] Eosinophils (Bld) [#/Vol] 0.09 10*3/uL Normal <0.46 [facility] Comment on above: Order Comment: Speci men Type: BLOOD SPECIMENOrdering Facility: Address: [address] [address] Performed By: #### 5 7021-8 ####[facility] LABCLIA [id number] [place] [address] Eosinophils/100 WBC (Bld) 0.5 % Normal [facility] Comment on above: Order Comment: Speci men Type: BLOOD SPECIMENOrdering Facility: Address: [address] [place] [address] Performed By: #### 5 7021-8 ####[facility] LABCLIA [id number] [place] [address] Erythrocyte distribution width (RBC) [Ratio] 13.5 % Normal 11.5-15.0 [facility] Comment on above: Order Comment: Speci men Type: BLOOD SPECIMENOrdering Facility: Address: [address] [place] [address] Performed By: #### 5 7021-8 ####[facility] LABCLIA [id number] [place] [address] Hematocrit (Bld) [Volume fraction] 43.1 % Normal 36.0-46.0 [facility] Comment on above: Order Comment: Speci men Type: BLOOD SPECIMENOrdering Facility: Address: [address] [place] [address] Performed By: #### 5 7021-8 ####[facility] LABCLIA [id number] [place] [address] Hemoglobin (Bld) [Mass/Vol] 14.2 g/dL Normal 11.5-15.5 [facility] Comment on above: Order Comment: Speci men Type: BLOOD SPECIMENOrdering Facility: Address: [address] [place] [address] Performed By: #### 5 7021-8 ####[facility] LABCLIA [id number] [place] [address] Immature granulocytes (Bld) [#/Vol] 0.20 10*3/uL High <0.10 [facility] Comment on above: Order Comment: Speci men Type: BLOOD SPECIMENOrdering Facility: Address: [address] [place] [address] Performed By: #### 5 7021-8 ####[facility] LABCLIA [id number] [place] [address] Immature granulocytes/100 WBC (Bld) 1.1 % Normal [facility] Comment on above: Order Comment: Speci men Type: BLOOD SPECIMENOrdering Facility: Address: [address] [place] [address] Performed By: #### 5 7021-8 ####[facility] LABCLIA [id number] [place] [address] Lymphocytes (Bld) [#/Vol] 2.21 10*3/uL Normal 1.00-4.00 [facility] Comment on above: Order Comment: Speci men Type: BLOOD SPECIMENOrdering Facility: Address: [address] [place] [address] Performed By: #### 5 7021-8 ####[facility] LABCLIA [id number] [place] [address] Lymphocytes/100 WBC (Bld) 12.5 % Normal [facility] Comment on above: Order Comment: Speci men Type: BLOOD SPECIMENOrdering Facility: Address: [address] [place] [address] Performed By: #### 5 7021-8 ####[facility] LABCLIA [id number] [place] [address] MCH (RBC) [Entitic mass] 29.7 pg Normal 26.0-34.0 [facility] Comment on above: Order Comment: Speci men Type: BLOOD SPECIMENOrdering Facility: Address: [address] [place] [address] Performed By: #### 5 7021-8 ####[facility] LABCLIA [id number] [place] [address] MCHC (RBC) [Mass/Vol] 32.9 g/dL Normal 30.5-36.0 [facility] Comment on above: Order Comment: Speci men Type: BLOOD SPECIMENOrdering Facility: Address: [address] [place] [address] Performed By: #### 5 7021-8 ####[facility] LABIA [id number] [place] [address] MCV (RBC) [Entitic vol] 90.2 fL Normal 80.0-100.0 [facility] Comment on above: Order Comment: Speci men Type: BLOOD SPECIMENOrdering Facility: Address: [address] [place] [address] Performed By: #### 5 7021-8 ####[facility] LABCLIA [id number] [place] [address] Monocytes (Bld) [#/Vol] 1.36 10*3/uL High <0.87 [facility] Comment on above: Order Comment: Speci men Type: BLOOD SPECIMENOrdering Facility: Address: [address] [place] [address] Performed By: #### 5 7021-8 ####[facility] LABCLIA [id number] [place] [address] Monocytes/100 WBC (Bld) 7.7 % Normal [facility] Comment on above: Order Comment: Speci men Type: BLOOD SPECIMENOrdering Facility: Address: [address] [address] Performed By: #### 5 7021-8 ####[facility] LABCLIA [id number] [place] [address] Neutrophils (Bld) [#/Vol] 13.72 10*3/uL High 1.45-7.50 [facility] Comment on above: Order Comment: Speci men Type: BLOOD SPECIMENOrdering Facility: Address: [address] [address] Performed By: #### 5 7021-8 ####[facility] LABCLIA [id number] [place] [address] Neutrophils/100 WBC (Bld) 77.6 % Normal [facility] Comment on above: Order Comment: Speci men Type: BLOOD SPECIMENOrdering Facility: Address: [address] [address] Performed By: #### 5 7021-8 ####[facility] LABCLIA [id number] [place] [address] Nucleated RBC (Bld) [#/Vol] 10*3/uL Normal <0.01 [facility] Comment on above: Order Comment: Speci men Type: BLOOD SPECIMENOrdering Facility: Address: [address] [address] Performed By: #### 5 7021-8 ####[facility] LABCLIA [id number] [place] [address] Nucleated RBC/100 WBC (Bld) [Ratio] 0.0 /100 WBC Normal [facility] Comment on above: Order Comment: Speci men Type: BLOOD SPECIMENOrdering Facility: Address: [address] [address] Performed By: #### 5 7021-8 ####[facility] LABCLIA [id number] [place] [address] Platelet mean volume (Bld) [Entitic vol] 8.3 fL Low 9.0-12.7 [facility] Comment on above: Order Comment: Speci men Type: BLOOD SPECIMENOrdering Facility: Address: [address] [place] [address] Performed By: #### 5 7021-8 ####[facility] LABCLIA [id number] [place] [address] Platelets (Bld) [#/Vol] 431 10*3/uL High 150-400 [facility] Comment on above: Order Comment: Speci men Type: BLOOD SPECIMENOrdering Facility: Address: [address] [place] [address] Performed By: #### 5 7021-8 ####[facility] LABIA [id number] [place] [address] RBC (Bld) [#/Vol] 4.78 10*6/uL Normal 3.90-5.20 [facility] Comment on above: Order Comment: Speci men Type: BLOOD SPECIMENOrdering Facility: Address: [address] [place] [address] Performed By: #### 5 7021-8 ####[facility] LABIA [id number] [place] [address] WBC (Bld) [#/Vol] 17.69 10*3/uL High 3.70-11.00 [facility] Comment on above: Order Comment: Speci men Type: BLOOD SPECIMENOrdering Facility: Address: [address] [place] [address] Performed By: #### 5 7021-8 ####[facility] LABCLIA [id number] [place] [address] Comprehensive metabolic 2000 panelon 08-06-2022 Albumin [Mass/Vol] 4.0 g/dL Normal 3.9-4.9 [facility] Comment on above: Order Comment: Speci men Type: BLOOD SPECIMENOrdering Facility: Address: [address] [place] [address] Performed By: #### 2 4323-8 ####[facility] LABCLIA [id number] [place] [address] ALP [Catalytic activity/Vol] 68 U/L Normal 34-123 [facility] Comment on above: Order Comment: Speci men Type: BLOOD SPECIMENOrdering Facility: Address: [address] [address] Performed By: #### 2 4323-8 ####[facility] LABCLIA [id number] [place] [address] ALT [Catalytic activity/Vol] 16 U/L Normal 7-38 [facility] Comment on above: Order Comment: Speci men Type: BLOOD SPECIMENOrdering Facility: Address: [address] [address] Performed By: #### 2 4323-8 ####[facility] LABCLIA [id number] [place] [address] Anion gap [Moles/Vol] 7 mmol/L Low 9-18 [facility] Comment on above: Order Comment: Speci men Type: BLOOD SPECIMENOrdering Facility: Address: [address] [address] Performed By: #### 2 4323-8 ####[facility] LABCLIA [id number] [place] [address] AST [Catalytic activity/Vol] 16 U/L Normal 13-35 [facility] Comment on above: Order Comment: Speci men Type: BLOOD SPECIMENOrdering Facility: Address: [address] [address] Performed By: #### 2 4323-8 ####[facility] LABCLIA [id number] [place] [address] Bilirubin [Mass/Vol] 0.4 mg/dL Normal 0.2-1.3 [facility] Comment on above: Order Comment: Speci men Type: BLOOD SPECIMENOrdering Facility: Address: [address] [place] [address] Performed By: #### 2 4323-8 ####[facility] LABCLIA [id number] [place] [address] Calcium [Mass/Vol] 9.8 mg/dL Normal 8.5-10.2 [facility] Comment on above: Order Comment: Speci men Type: BLOOD SPECIMENOrdering Facility: Address: [address] [place] [address] Performed By: #### 2 4323-8 ####[facility] LABCLIA [id number] [place] [address] Chloride [Moles/Vol] 102 mmol/L Normal 97-105 [facility] Comment on above: Order Comment: Speci men Type: BLOOD SPECIMENOrdering Facility: Address: [address] [place] [address] Performed By: #### 2 4323-8 ####[facility] LABCLIA [id number] [place] [address] CO2 [Moles/Vol] 28 mmol/L Normal 22-30 [facility] Comment on above: Order Comment: Speci men Type: BLOOD SPECIMENOrdering Facility: Address: [address] [place] [address] Performed By: #### 2 4323-8 ####[facility] LABCLIA [id number] [place] [address] Creatinine [Mass/Vol] 0.66 mg/dL Normal 0.58-0.96 [facility] Comment on above: Order Comment: Speci men Type: BLOOD SPECIMENOrdering Facility: Address: [address] [address] Performed By: #### 2 4323-8 ####[facility] LABCLIA [id number] [place] [address] ESTIMATED GLOMERULAR FILTRATION RATE 97 mL/min/1.73m??? Normal >=60 [facility] Comment on above: Order Comment: Speci men Type: BLOOD SPECIMENOrdering Facility: Address: [address] [place] [address] Result Comment: Carmen mated Glomerular Filtration Rate [...] actual GFR. Performed By: #### 2 4323-8 ####[facility] LABCLIA [id number] [place] [address] Glucose [Mass/Vol] 118 mg/dL High 74-99 [facility] Comment on above: Order Comment: Speci men Type: BLOOD SPECIMENOrdering Facility: Address: [address] [place] [address] Result Comment: The [place] [employer] (ADA) provides guidance for cutoff [...] Standards of Medical Care in Diabetes 2016, [place] [employer]. Diabetes Care. 2016.39(Suppl 1). Performed By: #### 2 4323-8 ####[facility] LABCLIA [id number] [place] [address] Potassium [Moles/Vol] 4.3 mmol/L Normal 3.7-5.1 [facility] Comment on above: Order Comment: Speci men Type: BLOOD SPECIMENOrdering Facility: Address: [address] [place] [address] Performed By: #### 2 4323-8 ####[facility] LABCLIA [id number] [place] [address] Protein [Mass/Vol] 6.6 g/dL Normal 6.3-8.0 [facility] Comment on above: Order Comment: Speci men Type: BLOOD SPECIMENOrdering Facility: Address: [address] [place] [address] Performed By: #### 2 4323-8 ####[facility] LABCLIA [id number] [place] [address] Sodium [Moles/Vol] 137 mmol/L Normal 136-144 [facility] Comment on above: Order Comment: Speci men Type: BLOOD SPECIMENOrdering Facility: Address: [address] [place] [address] Performed By: #### 2 4323-8 ####[facility] LABCLIA [id number] [place] [address] Urea nitrogen [Mass/Vol] 16 mg/dL Normal 7-21 [facility] Comment on above: Order Comment: Speci men Type: BLOOD SPECIMENOrdering Facility: Address: [address] [place] [address] Performed By: #### 2 4323-8 ####[facility] LABIA [id number] [place] [address] ESR Westergren method (Bld) [Velocity]on 08-06-2022 ESR (Bld) [Velocity] 18 mm/h Normal 0-20 [facility] Comment on above: Order Comment: Speci men Type: BLOOD SPECIMENOrdering Facility: Address: [address] [place] [address] Performed By: #### 4 537-7 ####[facility] LABCLIA [id number] [address] HBV core Ab Ser Qlon 023 HBV core Ab Ql (S) Negative Normal Negative [facility] Comment on above: Order Comment: Speci men Type: BLOOD SPECIMENOrdering Facility: Address: [address] [place] [address] Result Comment: No e vidence of current or past infection with Hepatitis B virus. Should recent infection be suspected, repeat testing may be considered 3-4 weeks after this draw. Performed By: #### 1 6933-4, 5-3, 52608-5 ####[facility] LABCLIA [id number] [address] HBV surface Ab Ql (S)on 07-19 HBV surface Ab Qn (S) <8.00 Low >=12.00 [facility] Comment on above: Order Comment: Speci men Type: BLOOD SPECIMENOrdering Facility: Address: [address] [place] [address] Performed By: #### 1 6933-4, 5-3, 53518-6 ####[facility] LABCLIA [id number] [address] [place] HBV surface Ab Ser Qlon 07-19 HBV surface Ab Ql (S) Negative Abnormal Positive [facility] Comment on above: Order Comment: Speci men Type: BLOOD SPECIMENOrdering Facility: Address: [address] [place] [address] Result Comment: No e vidence of antibodies to Hepatitis B surface antigen. Performed By: #### 1 6933-4, 5195-3, 21370-0 ####[facility] LABCLIA [id number] [address] [place] HBV surface Ag Ser Qlon 07-19 HBV surface Ag Ql (S) Negative Normal Negative [facility] Comment on above: Order Comment: Speci men Type: BLOOD SPECIMENOrdering Facility: Address: [address] [place] [address] Performed By: #### 1 6933-4, 5195-3, 72821-4 ####[facility] LABIA [id number] [address] HCV Ab Ser Qlon 08-06-2022 HCV Ab Ql (S) Negative Normal Negative [facility] Comment on above: Order Comment: Speci men Type: BLOOD SPECIMENOrdering Facility: Address: [address] [place] [address] Result Comment: The result suggests no evidence of active infection with Hepatitis C virus. Should recent infection be suspected, repeat testing may be considered 4-6 weeks after this draw. Performed By: #### 1 6128-1 ####[facility] LABCLIA [id number] [address] OF [facility] Workers' Comp Officeon 07-26 Workers' Comp Office [id number]#1. 00CD:127 Normal [facility] CNOVon 06-27-2022 CNOV Office Visit (DERMMN ) SHELLY WILSON ([id number]) 1955 F Date Time Provider Department 06/27/22 [...] Lymph 1.00 - 4.00 k/uL 4.49 (H) Pike% % 7.0 Abs Pike <0.87 k/uL 1.50 (H) Eosin% % 0.0 [...] skin folds (more content not included)... Normal [facility] Consultation Noteon 06-28-19 Consultation Note Chief complaint: [...] after the procedure for repeat evaluation. 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 She said please send Rx to [facility] pharmacy in [place], [place] on [facility]. She also notes that her hands are stiff and swollen again. She stopped prednisone Friday (she is out of pills) and the stiffness and swelling came back this morning. Also - she made an appointment to see Derm at [facility]. Her appointment is tomorrow 06/27. John [...] 2 CBC + DIFF [SQCBCDIF] Order #: [id number] FUTURE COMP METABOLIC PANEL [SQCMP] Order #: [id number] FUTURE SED RATE WESTERGREN [SQWSR] Order #: [id number] FUTURE HEP REMOTE PANEL BL [SQHREMOP] Order #: [id number] FUTURE Prescriptions as of 06/26/2022 - methotrexate [...] Number: 76 (more content not included)... Normal [facility] Consent for Treatmenton 06-17 Consent for Treatment [id number]#1. 00CD:127 Normal [facility] Office/Clinic Note-Physician on 06-26-2022 Office/Clinic Note-Physician [id number]#1.0 0CD:127 Normal [facility] Patient Correspondenceon Patient Correspondence [id number]#1.0 0CD:127 Normal [facility] Patient Correspondence [id number]#1.0 0CD:127 Normal [facility] Patient History Officeon Patient History Office [id number]#1.0 0CD:127 Normal [facility] ESR Westergren method (Bld) [Velocity]on 06-25-2022 ESR (Bld) [Velocity] 21 mm/h High 0 - 20 mm/hr [facility] CBC W Auto Differential pane l (Bld)on 06-24-2022 Basophils (Bld) [#/Vol] 0.21 10*3/uL High <0.11 [facility] Comment on above: Order Comment: Speci men Type: BLOOD SPECIMENOrdering Facility: Address: [address] [place] [address] Performed By: #### 5 7021-8, 4536-08 ####[facility] LABCLIA [id number] [place] [address] [place] Basophils/100 WBC (Bld) 1.0 % Normal [facility] Comment on above: Order Comment: Speci men Type: BLOOD SPECIMENOrdering Facility: Address: [address] [place] [address] Performed By: #### 5 7021-8, 7 ####[facility] LABCLIA [id number] [place] [address] [place] Differential cell count method Nom (Bld) Manual Normal [facility] Comment on above: Order Comment: Speci men Type: BLOOD SPECIMENOrdering Facility: Address: [address] [place] [address] Performed By: #### 5 7021-8, 7 ####[facility] LABCLIA [id number] [place] [address] [place] Eosinophils (Bld) [#/Vol] 0.00 10*3/uL Normal <0.46 [facility] Comment on above: Order Comment: Speci men Type: BLOOD SPECIMENOrdering Facility: Address: [address] [place] [address] Performed By: #### 5 7021-8, 7 ####[facility] LABCLIA [id number] [address] [place] Eosinophils/100 WBC (Bld) 0.0 % Normal [facility] Comment on above: Order Comment: Speci men Type: BLOOD SPECIMENOrdering Facility: Address: [address] [place], [place] [address] Performed By: #### 5 7021-8, 4536-7 ####[facility] LABCLIA [id number] [place] [address] [place] Erythrocyte distribution width (RBC) [Ratio] 12.4 % Normal 11.5-15.0 [facility] Comment on above: Order Comment: Speci men Type: BLOOD SPECIMENOrdering Facility: Address: [address] [place], [place] [address] Performed By: #### 5 7021-8, 4537-7 ####[facility] LABCLIA [id number] [place] [address] [place] Hematocrit (Bld) [Volume fraction] 42.2 % Normal 36.0-46.0 [facility] Comment on above: Order Comment: Speci men Type: BLOOD SPECIMENOrdering Facility: Address: [address] [place], [place] [address] Performed By: #### 5 7021-8, 4537-7 ####[facility] LABCLIA [id number] [place] [address] [place] Hemoglobin (Bld) [Mass/Vol] 14.5 g/dL Normal 11.5-15.5 [facility] Comment on above: Order Comment: Speci men Type: BLOOD SPECIMENOrdering Facility: Address: [address] [place], [place] [address] Performed By: #### 5 7021-8, 7-7 ####[facility] LABCLIA [id number] [place] [address] [place] Lymphocytes (Bld) [#/Vol] 4.49 10*3/uL High 1.00-4.00 [facility] Comment on above: Order Comment: Speci men Type: BLOOD SPECIMENOrdering Facility: Address: [address] [place], [place] [address] Performed By: #### 5 7021-8, 7-7 ####[facility] LABCLIA [id number] [place] [address] [place] Lymphocytes/100 WBC (Bld) 21.0 % Normal [facility] Comment on above: Order Comment: Speci men Type: BLOOD SPECIMENOrdering Facility: Address: [address] [place] [address] Performed By: #### 5 7021-8, 4537-7 ####[facility] LABCLIA [id number] [address] [place] MCH (RBC) [Entitic mass] 30.9 pg Normal 26.0-34.0 [facility] Comment on above: Order Comment: Speci men Type: BLOOD SPECIMENOrdering Facility: Address: [address] [place] [address] Performed By: #### 5 7021-8, 453-7 ####[facility] LABIA [id number] [address] [place] MCHC (RBC) [Mass/Vol] 34.4 g/dL Normal 30.5-36.0 [facility] Comment on above: Order Comment: Speci men Type: BLOOD SPECIMENOrdering Facility: Address: [address] [place] [address] Performed By: #### 5 7021-8, 4536-7 ####[facility] LABIA [id number] [place] [address] [place] MCV (RBC) [Entitic vol] 90.0 fL Normal 80.0-100.0 [facility] Comment on above: Order Comment: Speci men Type: BLOOD SPECIMENOrdering Facility: Address: [address] [place], [place] [address] Performed By: #### 5 7021-8, 4537-7 ####[facility] LABIA [id number] [place] [address] [place] Monocytes (Bld) [#/Vol] 1.50 10*3/uL High <0.87 [facility] Comment on above: Order Comment: Speci men Type: BLOOD SPECIMENOrdering Facility: Address: [address] [place], [place] [address] Performed By: #### 5 7021-8, 7 ####[facility] LABCLIA [id number] [place] [address] [place] Monocytes/100 WBC (Bld) 7.0 % Normal [facility] Comment on above: Order Comment: Speci men Type: BLOOD SPECIMENOrdering Facility: Address: [address] [place], [place] [address] Performed By: #### 5 7021-8, 4536-08 ####[facility] LABCLIA [id number] [place] [address] [place] MYELO% 1.0 % Normal [facility] Comment on above: Order Comment: Speci men Type: BLOOD SPECIMENOrdering Facility: Address: [address] [place], [place] [address] Performed By: #### 5 7021-8, 4536-08 ####[facility] LABCLIA [id number] [place] [address] [place] Neutrophils (Bld) [#/Vol] 14.95 10*3/uL High 1.45-7.50 [facility] Comment on above: Order Comment: Speci men Type: BLOOD SPECIMENOrdering Facility: Address: [address] [place], [place] [address] Performed By: #### 5 7021-8, 4536-08 ####[facility] LABCLIA [id number] [place] [address] [place] Neutrophils/100 WBC (Bld) 70.0 % Normal [facility] Comment on above: Order Comment: Speci men Type: BLOOD SPECIMENOrdering Facility: Address: [address] [place], [place] [address] Performed By: #### 5 7021-8, 4536- ####[facility] LABCLIA [id number] [place] [address] [place] Nucleated RBC (Bld) [#/Vol] 10*3/uL Normal <0.01 [facility] Comment on above: Order Comment: Speci men Type: BLOOD SPECIMENOrdering Facility: Address: [address] [place], [place] [address] Performed By: #### 5 7021-8, 4536-7 ####[facility] LABIA [id number] [place] [address] [place] Nucleated RBC/100 WBC (Bld) [Ratio] 0.0 /100 WBC Normal [facility] Comment on above: Order Comment: Speci men Type: BLOOD SPECIMENOrdering Facility: Address: [address] [place], [place] [address] Performed By: #### 5 7021-8, 4536-7 ####[facility] LABIA [id number] [place] [address] [place] Platelet mean volume (Bld) [Entitic vol] 8.6 fL Low 9.0-12.7 [facility] Comment on above: Order Comment: Speci men Type: BLOOD SPECIMENOrdering Facility: Address: [address] [place], [place] [address] Performed By: #### 5 7021-8, 4536-7 ####[facility] LABIA [id number] [place] [address] [place] Platelets (Bld) [#/Vol] 465 10*3/uL High 150-400 [facility] Comment on above: Order Comment: Speci men Type: BLOOD SPECIMENOrdering Facility: Address: [address] [place], [place] [address] Performed By: #### 5 7021-8, 4536-7 ####[facility] LABCLIA [id number] [place] [address] [place] Platelets Estimate (Bld) [#/Vol] Increased Normal [facility] Comment on above: Order Comment: Speci men Type: BLOOD SPECIMENOrdering Facility: Address: [address] [place], [place] [address] Performed By: #### 5 7021-8, 4536-7 ####[facility] LABCLIA [id number] [place] [address] [place] Polychromasia LM Ql (Bld) Slight Normal [facility] Comment on above: Order Comment: Speci men Type: BLOOD SPECIMENOrdering Facility: Address: [address] [place], [place] [address] Performed By: #### 5 7021-8, 4536-7 ####[facility] LABCLIA [id number] [place] [address] [place] RBC (Bld) [#/Vol] 4.69 10*6/uL Normal 3.90-5.20 [facility] Comment on above: Order Comment: Speci men Type: BLOOD SPECIMENOrdering Facility: Address: [address] [place], [place] [address] Performed By: #### 5 7021-8, 4536-7 ####[facility] LABCLIA [id number] [place] [address] [place] RED CELL MORPH Reviewed: unremarkable Normal [facility] Comment on above: Order Comment: Speci men Type: BLOOD SPECIMENOrdering Facility: Address: [address] [place], [place] [address] Performed By: #### 5 7021-8, 4536-7 ####[facility] LABCLIA [id number] [place] [address] [place] WBC (Bld) [#/Vol] 21.36 10*3/uL High 3.70-11.00 [facility] Comment on above: Order Comment: Speci men Type: BLOOD SPECIMENOrdering Facility: Address: [address] [address] Performed By: #### 5 7021-8, 4537-7 ####[facility] LABCLIA [id number] [address] WBC Left Shift Ql (Bld) Present Normal [facility] Comment on above: Order Comment: Speci men Type: BLOOD SPECIMENOrdering Facility: Address: [address] [address] Performed By: #### 5 7021-8, 4537-7 ####[facility] LABIA [id number] [address] [place] CK SerPl-cCncon 06-24-2022 CK [Catalytic activity/Vol] 37 U/L Low 42-196 [facility] Comment on above: Order Comment: Speci men Type: BLOOD SPECIMENOrdering Facility: Address: [address] [place] [address] Performed By: #### 2 157-6, 19567-6, 80537-1, 3084-1 ####[facility] LABIA [id number] [address] OF [facility] CNOVon 06-24-2022 CNOV Office Visit (DARNELL ) SHELLY WILSON ([id number]) 1955 F Date Time Provider Department 06/24/22 [...] showing osteoarthritis. Dr Lala her PCP from [facility] in [place] prescribed prednisone 40 mg/d x 5. Reduced [...] Rv 3 (more content not included)... Normal [facility] CRP SerPl-mCncon 06-24-2022 CRP [Mass/Vol] 0.5 mg/dL Normal <0.9 [facility] Comment on above: Order Comment: Speci men Type: BLOOD SPECIMENOrdering Facility: Address: [address] [place] [address] Performed By: #### 1 988-5, 2885-2 ####[facility] LABCLIA [id number] [place] [address] [place] Comprehensive metabolic 2000 panelon 06-24-2022 Albumin [Mass/Vol] 4.0 g/dL Normal 3.9-4.9 [facility] Comment on above: Order Comment: Speci men Type: BLOOD SPECIMENOrdering Facility: Address: [address] [place] [address] Performed By: #### 2 157-6, 76039-2, 59357-6, 3084-1 ####[facility] LABCLIA [id number] [place] [address] [place] ALP [Catalytic activity/Vol] 75 U/L Normal 34-123 [facility] Comment on above: Order Comment: Speci men Type: BLOOD SPECIMENOrdering Facility: Address: [address] [place] [address] Performed By: #### 2 157-6, 91745-3, 67679-0, 3084-1 ####[facility] LABCLIA [id number] [address] [place] ALT [Catalytic activity/Vol] 21 U/L Normal 7-38 [facility] Comment on above: Order Comment: Speci men Type: BLOOD SPECIMENOrdering Facility: Address: [address] [place] [address] Performed By: #### 2 157-6, 16698-3, 98618-0, 3084-1 ####[facility] LABCLIA [id number] [address] [address] [place] Anion gap [Moles/Vol] 13 mmol/L Normal 9-18 [facility] Comment on above: Order Comment: Speci men Type: BLOOD SPECIMENOrdering Facility: Address: [address] [place] [address] Performed By: #### 2 157-6, 25179-0, 39892-0, 3083- ####[facility] LABCLIA [id number] [address] [address] [place] AST [Catalytic activity/Vol] 15 U/L Normal 13-35 [facility] Comment on above: Order Comment: Speci men Type: BLOOD SPECIMENOrdering Facility: Address: [address] [place] [address] Performed By: #### 2 157-6, 14523-6, 88221-4, 3083- ####[facility] LABCLIA [id number] [address] [address] [place] Bilirubin [Mass/Vol] 0.3 mg/dL Normal 0.2-1.3 [facility] Comment on above: Order Comment: Speci men Type: BLOOD SPECIMENOrdering Facility: Address: [address] [place], [place] [address] Performed By: #### 2 157-6, 34051-6, 68720-5, 3083- ####[facility] LABCLIA [id number] [address] [address] [place] Calcium [Mass/Vol] 9.8 mg/dL Normal 8.5-10.2 [facility] Comment on above: Order Comment: Speci men Type: BLOOD SPECIMENOrdering Facility: Address: [address] [place], [place] [address] Performed By: #### 2 157-6, 40812-8, 85679-2, 3083 ####[facility] LABCLIA [id number] [place] [address] [place] Chloride [Moles/Vol] 100 mmol/L Normal 97-105 [facility] Comment on above: Order Comment: Speci men Type: BLOOD SPECIMENOrdering Facility: Address: [address] [place] [address] Performed By: #### 2 157-6, 97364-0, 79150-4, [facility] ####[facility] LABCLIA [id number] [place] [address] [place] CO2 [Moles/Vol] 25 mmol/L Normal 22-30 [facility] Comment on above: Order Comment: Speci men Type: BLOOD SPECIMENOrdering Facility: Address: [address] [place] [address] Performed By: #### 2 157-6, 04430-6, 82143-6, [facility] ####[facility] LABIA [id number] [place] [address] [place] Creatinine [Mass/Vol] 0.71 mg/dL Normal 0.58-0.96 [facility] Comment on above: Order Comment: Speci men Type: BLOOD SPECIMENOrdering Facility: Address: [address] [place] [address] Performed By: #### 2 157-6, 36526-4, 74630-0, [facility] ####[facility] LABIA [id number] [place] [address] [place] ESTIMATED GLOMERULAR FILTRATION RATE 94 mL/min/1.73m??? Normal >=60 [facility] Comment on above: Order Comment: Speci men Type: BLOOD SPECIMENOrdering Facility: Address: [address] [place] [address] Result Comment: Carmen mated Glomerular Filtration Rate [...] actual GFR. Performed By: #### 2 157-6, 39837-8, 77208-2, 3084-1 ####[facility] LABCLIA [id number] [place] [address] [place] Glucose [Mass/Vol] 62 mg/dL Low 74-99 [facility] Comment on above: Order Comment: Tam purvis Type: BLOOD SPECIMENOrdering Facility: Address: [address] [place] [address] Result Comment: The [place] [employer] (ADA) provides guidance for cutoff [...] Standards of Medical Care in Diabetes 2016, [place] [employer]. Diabetes Care. 2016.39(Suppl 1). Performed By: #### 2 157-6, 87162-4, 90714-1, 3083- ####[facility] LABCLIA [id number] [place] [id number] [place] Potassium [Moles/Vol] 4.2 mmol/L Normal 3.7-5.1 [facility] Comment on above: Order Comment: Tam purvis Type: BLOOD SPECIMENOrdering Facility: Address: [address] [id number] Performed By: #### 2 157-6, 48777-7, 66141-5, 3084-1 ####[facility] LABCLIA [id number] [address] [address] [place] Protein [Mass/Vol] 6.8 g/dL Normal 6.3-8.0 [facility] Comment on above: Order Comment: Speci men Type: BLOOD SPECIMENOrdering Facility: Address: [address] [place] [address] Performed By: #### 2 157-6, 27345-5, 54447-1, 3084-1 ####[facility] LABCLIA [id number] [place] [address] [place] Sodium [Moles/Vol] 138 mmol/L Normal 136-144 [facility] Comment on above: Order Comment: Speci men Type: BLOOD SPECIMENOrdering Facility: Address: [address] [place] [address] Performed By: #### 2 157-6, 55602-3, 66166-4, 3084-1 ####[facility] LABCLIA [id number] [place] [address] [place] Urea nitrogen [Mass/Vol] 17 mg/dL Normal 7-21 [facility] Comment on above: Order Comment: Speci men Type: BLOOD SPECIMENOrdering Facility: Address: [address] [place] [address] Performed By: #### 2 157-6, 32236-9, 78181-3, 3084-1 ####[facility] LABCLIA [id number] [place] [address] [place] Cyclic citrullinated peptide IgG Qnon 06-24-2022 CCP ANTIBODY IGG QUALITATIVE Positive Abnormal Negative [facility] Comment on above: Order Comment: Speci men Type: BLOOD SPECIMENOrdering Facility: Address: [address] [place] [address] Performed By: #### 4 7383-5, 28706-4 ####[facility] LABCLIA [id number] [place] [address] [place] ESR Westergren method (Bld) [Velocity]on 06-24-2022 ESR (Bld) [Velocity] 21 mm/h High 0-20 [facility] Comment on above: Order Comment: Speci men Type: BLOOD SPECIMENOrdering Facility: Address: [address] [address] Performed By: #### 5 7021-8, 4537-7 ####[facility] LABIA [id number] [place] [address] [place] No Panel Informationon 06-24 [facility] Nuclear Ab IA Ql (S)on 06-24 BABATUNDE BY EIA, QUAL Negative Normal Negative [facility] Comment on above: Order Comment: Speci men Type: BLOOD SPECIMENOrdering Facility: Address: [address] [place] [address] Result Comment: The qualitative antinuclear antibody screen test performed using enzyme immunoassay including the following antigens: dsDNA, histones, SS-A, SS-B, Sm, Sm/POULTRY BONER, Scl-70, Elham-1, and centromeric antigens. Performed By: #### 4 7383-5, 56770-0 ####[facility] LABIA [id number] [place] [address] [place] PROTEIN ELECTROPHORESIS SERU M (P)on 06-24-2022 Albumin [Mass/Vol] 3.51 g/dL Normal 3.43-5.41 [facility] Comment on above: Order Comment: Speci men Type: BLOOD SPECIMENOrdering Facility: Address: [address] [place] [address] Performed By: #### L [id number] ####[facility] LABIA [id number] [place] [address] [place] Alpha 1 globulin Elph [Mass/Vol] 0.36 g/dL Normal 0.18-0.43 [facility] Comment on above: Order Comment: Speci men Type: BLOOD SPECIMENOrdering Facility: Address: [address] [address] Performed By: #### L [id number] ####[facility] LABCLIA [id number] [address] [place] Alpha 2 globulin Elph [Mass/Vol] 1.04 g/dL High 0.42-0.98 [facility] Comment on above: Order Comment: Speci men Type: BLOOD SPECIMENOrdering Facility: Address: [address] [address] Performed By: #### L [id number] ####[facility] LABIA [id number] [address] [place] Beta globulin Elph [Mass/Vol] 0.88 g/dL Normal 0.61-1.17 [facility] Comment on above: Order Comment: Speci men Type: BLOOD SPECIMENOrdering Facility: Address: [address] [address] Performed By: #### L [id number] ####[facility] LABIA [id number] [address] [place] Gamma globulin Elph [Mass/Vol] 0.71 g/dL Normal 0.53-1.51 [facility] Comment on above: Order Comment: Speci men Type: BLOOD SPECIMENOrdering Facility: Address: [address] [place] [address] Performed By: #### L [id number] ####[facility] LABIA [id number] [place] [address] [place] M-PROTEIN LOCATION Normal [facility] Comment on above: Order Comment: Speci men Type: BLOOD SPECIMENOrdering Facility: Address: [address] [address] Result Comment: Not Applicable. Performed By: #### L [id number] ####[facility] LABIA [id number] [address] [place] Protein Fractions [Interp] No definitive M protein is identified on protein electrophoresis. Normal No definitive M protein is identified on protein electrophoresi s. [facility] Comment on above: Order Comment: Speci men Type: BLOOD SPECIMENOrdering Facility: Address: [address] [place] [address] Performed By: #### L [id number] ####[facility] LABIA [id number] [address] [place] Protein.monoclonal Elph [Mass/Vol] 0.00 g/dL Normal <=0.00 [facility] Comment on above: Order Comment: Speci men Type: BLOOD SPECIMENOrdering Facility: Address: [address] [place] [address] Performed By: #### L [id number] ####[facility] [id number] [address] SPE STAFF REVIEW Reviewed by Dr. Jacob Benitez MD [facility] Comment on above: Order Comment: Speci men Type: BLOOD SPECIMENOrdering Facility: Address: [address] [place] [address] Performed By: #### L [id number] ####[facility] LABIA [id number] [place] [address] [place] Prot SerPl-mCncon 06-24-2022 Protein [Mass/Vol] 6.5 g/dL Normal 6.3-8.0 [facility] Comment on above: Order Comment: Speci men Type: BLOOD SPECIMENOrdering Facility: Address: [address] [place] [address] Performed By: #### 1 988-5, 2885-2 ####[facility] LABIA [id number] [address] [place] Rheumatoid fact SerPl-aCncon 06-24-2022 Rheumatoid factor Qn [IU]/mL Normal <16 [facility] Comment on above: Order Comment: Speci men Type: BLOOD SPECIMENOrdering Facility: Address: [address] [place], [place] [id number] Performed By: #### 2 157-6, 11209-9, 24031-6, 3084-1 ####[facility] LABCLIA [id number] [place] [id number] [facility] [place] Urate SerPl-mCncon Urate [Mass/Vol] 4.4 mg/dL Normal 2.5-6.6 [facility] Comment on above: Order Comment: Speci men Type: BLOOD SPECIMENOrdering Facility: Address: [address] [place], [place] [id number] Performed By: #### 2 157-6, 20290-8, 74673-7, 3084-1 ####[facility] LABCLIA [id number] [place] [id number] [place] XR CHEST 2V [...] Exaggerated thoracic kyphosis with degenerative changes. IMPRESSION: Director Diversity: RENA Transcribe Date/Time: Jun 27 2022 2:09P Dictated by : LEE HIGGINS MD This examination was interpreted and the report reviewed and electronically signed by: LEE HIGGINS MD on Jun 27 2022 2:10PM EST [id number] Normal [facility] XR FOOT 3V AP/LAT/OBL BILon 06-24-2022 XR [...] IMPRESSION: Degenerative arthritis. No evidence of erosions. Director Diversity: [facility] Transcribe Date/Time: Jun 24 2022 3:36P Dictated by : REA MILLER MD This examination was interpreted and the report reviewed and electronically signed by: REA MILLER MD on Jun 24 2022 3:37PM EST [id number] Normal [facility] XR HAND/WRIST SURVEY 1V PA B ILon [...] IMPRESSION: Degenerative arthritis. No evidence of erosions. Director Diversity: RENA Transcribe Date/Time: Jun 24 2022 3:34P Dictated by : REA MILLER MD This examination was interpreted and the report reviewed and electronically signed by: REA MILLER MD on Jun 24 2022 3:36PM EST [id number] Normal [facility] cCP IgG SerPl-aCncon 023 Cyclic citrullinated peptide IgG Qn 78 Units High <20 [facility] Comment on above: Order Comment: Speci men Type: BLOOD SPECIMENOrdering Facility: Address: [address] [place] [address] Performed By: #### 4 7383-5, 43227-9 ####[facility] LABCLIA [id number] [address] OF [facility] US VENOUS DOPPLER BENJAMIN Leonard 06-19-2022 US [...] 20:02 Normal [facility] Coding Summary.on 06-05-2022 Coding Summary. CD:[id number] Ww +PGhlYWQ+HQ6AUXJdV93hp VAwvF8jD7YDRQiXLduoLRD MQRyZVhFlzcYpMB4vcTLnW XJu IC8+TD2cSSBiUbodzUHus8 I8xZM6U71pec2xMBforLF7 WBFwUlAnyewon6iziFa2VG cuNmluOyBt HEUrrO13YOC6lZ49Hr74jJ PwzDTxu8uknMx0XyGxCGDu CWG3bCkkTPctf4FhUHSqP1 0xoKPns7Q7 HMYaxJtjiMDtAeOwvEF8nV 6pEIqcidkjs0bidfpeRbv9 hn83vEJua4X4gAR8V2Jczy T6JLTbpMWf GictfJUYhR1ddxgwz5amiw ypRiWgIBBhXWo5ZRj1TJGa gFrmTlJtSV68HOD0HYDoiy JpT1JlLWSc eTptKoO3g8A1Mi7LQ1LIDz guM7PBGRRMURqnhJN+PC90 bb59T6DgWyptKfa2OIEcWA E0zVD3tR6r IXTtYRlwi8R8kEP7U7Jmsg Uwcb9hf1ddXASoKOjjH92z xAJai2H4RQOzeQE4VDEbgI qaBdVmfP71 Oyc+ORAqbHsav9VbAubbh6 rof3kptYi7KghnJQAcrdZf wBqmLZV5d7VzKm4uACSwiG A1xPZ8eY5d JtNiNdQ9PCpxY637IfGkeP HhTcsfF98uT1RueEZ+PHRy Crb3CFLhtJstSC3zH8ByJK RpbmctbGVm sMmpIQ1iBDXfrtstCODuvP 7gNGRvS5k8GqOdQdM5IOdw I8QgWSGpvzyfLe06nX7cRe RwXlQ5UPpr A4ThgvO9CREcqOKcMEzvED S6V92wd6Y6FFAsDVToPFF0 kXS2fO6orEndhfqgqYDrkL sgdmVydGlj GOeqPItrH905UHDwbLlfGq NvZGluZyBEYXRlOiAgMDQv MTkvMjAyMzwvdGQ+PHRkIH W5dZkuJGBy lKSqRHkkQh8dmNanaEkqOL 8hTMYqmeocNKVthY9mQZZg vATxxXnnQF2cJYAfnewfz6 18QfXcHUL1 CHYxwZAlD6XsoQ3iXuPuMM OoQJJoO0WnbCNtYBmxH585 UGtpWeE0LMOwebUjA3SiPK FsaWduOiB0 k2F3Yk7Te2GnrjevE0JkeM ZjPuOlSmjrBZj4P1LxKhex dHI+LW08RWPwWX78SJs1RR P7rSjrKMag GTAwQ4XxmD4oJpQgEVMnLF RkOyc+PHRhYmxlIHdpZHRo YCeeDFQeCzRhpJkgNF2dRt 9yZGVyLWNv wSibxVZaWmHmh5nyNVDqFM vuHF0izMtpF3NznHO1MKOr d9z0Iy40N10eU9AngIE+PG OjnYM4uCP4 iU4eBxLgPsG8IDuoH436Tq XlzTQlErgho8umf8ohkZa9 KhH2SEFjcqBbqXmhLDU4t2 RlIb34T83f IHdpZHRoPSIxNSUiIHZhbG ydnp9agC0kGw1+PGNvbCB3 yTF9fI3nHdNzRkJ8QDkeQ3 49InRvcCIv Alvhy7jdo7jjmHy7AtZpGW CbvaDxgAhmBEJ5x9PrXc94 P5GwbXqti0LjJqb2kp12hL Ncd9M7dZT2 G3ZhYOConcbhnUHudXnuZS 5kJREgzthcLVFfqM7hQEKc E5b5LnJhOtG2HIbvM5Bjoc X9VFRliZRp ELGubJPPcN0obqddv2tand otCgMlPBPoDGr9OTh0MAGe wOxdNkPfBPT6IkE5UGQ0gQ DkiY9ymPwb krrjeI1bYfk+JBA2pBPihZ VEKJ1nKoaggDF+PHRkIHN0 eTrgPVebORQhhS5aIQLrK7 c0QxOlRaR0 FZeiF7CzszT0SEVleXQvCP DqyZPCrX2uxnsiy8wrjnhi RcVoWUUqAXg0TMb9PJQhfW duOiBsZWZ0 NaG8DXH5vBWskV4glXlsmf fjrW5iZeb+QmlydGggRGF0 YWl0J7DvYgv0KVUcwMreTL 0ncGFkZGlu Ql2cjKnxhNwbMJ7fHDYghh qkk315PoRno7swOGBfjEVb XFhcOQT1D79un4B3TOCvBG FeAOM9dAJ9 wL9sgPvzwkbmzCDnjJfbky WowTpiIOrjNXqgS188USLq eZkeJxIyVCb9D6YiHvc3DD BspVkbAG5q zPYrHPgjOd6zkBavtJkyZN 5gBYVbpoqor488ZeZax6rz JBShyDAtXSmqCYH0B23qb6 F9JLVpKHEn UPL1sXU1sB9udTpyxuvuxT VmdDsgdmVydGljYWwtYWxp Z140TUNdmOikJrDvtAh3B5 YhXro8UVDq oFnrXV6peUDcLNbmEp8caG zsbUveXW6tCFVqevzjh275 DwUtj5glARXfaFUdFNogKQ X2M25pg2V6 CUQtPYYwRJE0hFY6oA6lyE lnbjogbGVmdDsgdmVydGlj WCtlAHohP696NABpfIeqOi BhdGllbnQg EVeeUNq9J5NjIsqabUU+PC 39VVTqVQ05iWYegEYqy6ux fNv0PdPhFVXkHJU0tMayUN kxf7QfFADk W71nsIInj5X8IGSxtWbduS CkUnKhnVY7uH2fXSixulas u6kgwyekBcaxy6lqft83hR 60F99dMTrm ZHRoPSIzMCUiIHZhbGlnbj 5zpX5eXb6+BPHxqEU0kZX2 xU1yKLJvDeC9HKtfA739Bv RvcCIvPjxj i3nzs3kohKp8OyH9VCKonb HtjXzdOFO4i5WoZe40S90z IHdpZHRoPSIyMCUiIHZhbG ncfk6hcB1o Ii8+IEZmpVH3tPV0uY7wKi LyRcG4RKiwF844WlTuqMZh BlirT01lK6ZsqNK+PHRyPj d8FQTceZvm MN5tvUFbJNceCr2wGAZ6Op TsDyMqZYkaO8GbCOSxiiqd uartkLE7ZBVxYJKusQ32Tu 9udDogMTBw mLYUzU1hsfayh6btetdiYl XuAMZlRUd2JGo3NHZumLut AeLbPBM6OpK0NEG1rRVdpQ 1hbGlnbjog aB3sE7IlLLYgmrwcOu23pW 7gZxOeInW9BTstUts+Qkla K2GVNrwhMv7YDp9tCRkxiP Q+PHRkIHN0 qMklGCjwYVFyrY1cRYQlQ8 d1UkUgOhV4SIlyX2MnBQFe mldzSu80pU8nSpCeBmL8QM kvT9NhpnR0 TTExiWUtODofTIY6L50on9 Q3BNXvFNCeQQU6tTO7uR7j bGlnbjogbGVmdDsgdmVydG ljYWwtYWxp Q954JXDmoXflKmP0VfLbZx F0UUI5K2NnFkh9BEEqlObw OZ8yeTAgLHskLf0rmWilgN krWM2cKTAr ioquUYPujB9sRJXmyFOryS miSI8iFQLylndra769SqRo YIP1GZOurITmU4JerU8zOt AjMDAwMDAw J0KqlNVxAHhmM866ULxrZd M5XLSlscJwK4FwRMHjrUpc KfU2f7D1Ee81LtGBYVVjnc wvdGQ+PHRk UGS2fEzkWSgwHGZhmE9dNC YtE5y4OrRwDxL0FXvmY4Ik WXKhgkldNy23oO3cUtObQk L3NAvkT0Ym ugI8BTNofUKlXNeqBWP4X1 1me5C3PYPiZUEiCOM2cPE3 vH7gnZoyrcowqLZexQcrcw VydGljYWwt DIltW401CBWntAspMsKbpZ FsZTwvdGQ+YLBoEUG0bKbm MUvkEDFfgV5gNUMbM0h8Oh NuIqE8NWtd P1AgYTUmwgolWf55wY3vTd PaAdB0NVxvI5IicgF2YODo xYNnLJxvSYC2E27mq3I6XB MwMDAwMDA7 mUD7pF0glDmlbuahzKFrjZ bkqlAqkJmcQPdvSTecP773 UJUdzDluXp72lSTzbXqizd F5D2IlGrql dHI+JD84FQFjUO40eNPzgW Atd5mikFe8JlZyOHSrBTA2 oXksJAkyv6LeZUXhC57psR Cmr8L8KBXg fEgvhSNsIjEktDX0aG8cWN koxxigf1gcxmzqArhje7yl vo20tQ20T00eNXfvDOLvMM IzMCUiIHZh tIzcxl3etQ4hCl6+PGNvbC S5tGP0qE0sTvBmYqU6JCcw C863NtBtdEBrZpqvn4pji5 rozVq2YdZc NUEnqvUxlOroPDM2x3PeKi 69L95bYSmyUFKaSMWxVRUe GXJczMjgny7irJ7bOx5+PC 7dm7nhec18 dH22pEA+UARcQIJ4rQxnXE nnWWCxlE6vEAwrRwZ1KRCs LuStjZ63fXInVSsuLr2xfK ujhHdaPW9u KWQjgzxzx631YfPhy3feOO CtdJMnPEufKES7R87ku2A4 LVQdHSGbOBQ2eXJ8bY0ojU lnbjogbGVm dDsgdmVydGljYWwtYWxpZ2 27CXRtcAenQdYtbMFkM5tf ngSLGA5fOjcuxER+PHRkIH W4kVhtAAym ZNEjyR3bCCDhR3e1QfFxKa R5VVzaB6EthmV0VOPygCDz HFEhcGJBrB4evwsdw7jxqb ogIzAwMDAw CRa2WEf5VLOtdDtdVaMzOP A2XoV1LYV4oZPqqT6npJya hwydkE1hHqo+RklOOjwvdG Q+PHRkIHN0 mUlcYCnpZSEigS6oATUrQ3 t8OjSrHqO8MPtrK0DnpmM8 RTLtgYOzDZCbbGFToW7ovk lmp5plrwyb PiCsBUIqOXw8ULm7QCWslN mkQuGwZGT1ZiY8HIE5mNZe fV1asPifftmykJ7fIuf+TV JOOjwvdGQ+ GETfYGA5hOlnYOioUIOojN 0rMJJyV1j5DoDhIyK8JXdw B4YkebG5SNWgbCBlWAStlC YPpK2qygew s8epyzwaSzQpBLXuKJm5VW r7JDBkgNquVjCxVNV2OaZ2 AGO0dHIomW1czOpvxgzyaF 9wOyc+UGF5 BRZ3TE79XN27W4PzKifraM FibGU+PHRhYmxlIHdpZHRo ZFnyJGRoXiLsfDxvHM2mAl 9yZGVyLWNv bGxhcHNl (more content not included)... [facility] MRI Spine Lumbar w/o Contras ton 05-31-2022 [...] HERMINIO Technologist: FAYE Technical Comments None Normal [facility] XR Spine Lumbosacral Minimum 4 Viewson 05-31-2022 [...] spine. Lumbar vertebral body heights are maintained. Eurl-qx-aotlkoqv intervertebral disc height loss throughout the lumbar [...] mGy = na DAP = na Normal [facility] Consent for Treatmenton 05-18 Consent for Treatment [id number]#1.0 0CD:127 Normal [facility] RAD - MRI Screening Formon 0 05-30-2022 RAD - MRI Screening Form [id number]#1. 00CD:127 Normal [facility] Physician Orderon 05-23-2022 Physician Order [id number]#1.0 0CD:127 Normal [facility] Physician Order [id number]#1. 00CD:127 Normal [facility] Physician Order [id number]#1. 00CD:127 Normal [facility] Workers' Comp Officeon 05-23 Workers' Comp Office [id number] [id number]#2. 00CD:127 [facility] Coding Summary.on 05-14-2022 Coding Summary. CD:[id number] Ww +PGhlYWQ+RL8YGALcI91up IEhaN2wL3OJJYlXKbrnYKG IZAyWOoSgkeAoNL3ibGCkJ XJu IC8+OH3hVQXeAyainBZah0 M3zYV1R30nda1xMJqaxES0 DAXfHwPcauolj6sqrIa3YO cuNmluOyBt KHCblN78FCQ2xN41Ur56dO IkjBNot6gmkEg6CjMfLXAq MAW6gYwdRUfyi7CdDYWbQ2 2hqMDtn3L9 OKIbsDjitVZuYyXudYH2dC 7dYNedlwnbq3fgrqtiMab6 bh47gUKcj4O4zUK5H5Mkuq A0CSAahQJw WrgiqKLNdZ4sjcbmo7ageq muLvGjMSPuOXl5YNd9JWFy eEduHcAkTV60GNP1OJLbfy BjK4WtORAr iUcrMkK3x5F6Wp4MT2NHIj ayE2UVFRACBWprgLR+PC90 xb03N5EvExdrDxf6AXBqHJ Q4dHG3bI3o VKVkIUaug3J4oPD7T2Fnaz Rhhf3yj4pqXXLrQUweJ81h mUJcl7M2MUDgdBI5BPCbrO jlElBedG81 Oyc+PLNpnCdky9JqKehee3 puv1reyGq0YvqhBUUzoeDi sMagXIV8f8XrAa0rKKEyrP X4vFL3hT2t EwOvDuH6HHpbM985OdWdiN XvGcdxU84sN0NqwZQ+PHRy Rkn1GRDptFdnVH3xD6KtDY RpbmctbGVm hQrdMP1uESZgnzjkJTYzeQ 1kMJWvJ8t0PiNiYkU7UIcw D3WcVEQsmeupLp34fO1wHh MrXyD8UKbm J7PtmiN4PFLpqOIuUCtxRT G2F12yr8N4HPAkSHEpNAW9 bRL5xM7plKsswrenlBQnvE sgdmVydGlj FXrxZTieV971CMUarMptRa NvZGluZyBEYXRlOiAgMDMv MjgvMjAyMzwvdGQ+PHRkIH F6dYqsJSFj iYEfGUzeMh8duDohsYlyLJ 3jTKQmcwzfFNKfoQ2cEMAn eBSsrFqxSZ5jLWQnmibzz2 95EbPrRND8 WPXuvNGjP8HnnK4jBqIeKV WuSTYoH4HejHSiZSryC391 KImoHzU4HHLazpQcV2ZbNE FsaWduOiB0 b7G0Jg7Ng7PcoksfE7EbxJ JdNwRyKfaqQGw2Q4PpXdew dHI+EL23EFLzCC43AUi5BI N4oXgcGYak WENfJ0BbdN0gJlIoUDUqXF RkOyc+PHRhYmxlIHdpZHRo GFjqORYnCsEsbCyqWV7tKh 9yZGVyLWNv dBkhvZNlCzAxq3qhRFPiSC kzKE0jbNyjN5BgpXK5EYSx g0h7Nr58X65qW7DnoTW+PG LmwKB1rMB0 zK6uHyElKyO7PWokL183Bc DhjPLoBgsjz8gbl6orhJh1 QuQ9EFJcsiYyrNfiPNV3g8 LmTg89W02s IHdpZHRoPSIxNSUiIHZhbG wund0hvL9tVs4+PGNvbCB3 oFK8zQ8dJlOmScE1YTcgQ1 49InRvcCIv Refjc5fnj1texXx2ZwDePE YtswXmfBblDHU6y7YwEb50 K7SurIkhm2MwOik8ck72wM Ozo0J5wNX3 T7UwCTTdqwmesALstRprHU 4cYSTbguxwRQGllJ2tSTSb I6i9EoZkTfJ8GUouO1Ohti E4WEWdnADp UALeyAUVtB3dtwnrh3pzse kyUtGbOUYoPZx8UXv9WLNl dWlbZpZuIRU1PxQ8RDL2aB NarM6xgMuf iledeA2lQhj+EUS0iEErqF TJOF0cGedxzUM+PHRkIHN0 sVnwBWisFNNgbY4pFAIvN8 u3HgDeObS6 WWfdW7JktlG2VLMjkAAdUY NnyPAHzV7ryflgp4zcjnkg QfEyKUCkXKn0JTm6EWMztF duOiBsZWZ0 YnJ7MJK2nWBidG5gxHgrit brtP8eAqd+QmlydGggRGF0 WBi6P8RtNpj1IXSwyAivYC 0ncGFkZGlu Xs9byAjbaEomCP3eFDBusm efo971DpRcc4tvPCOmgZPc RAfcIXM2C44yx3D1YRMrFY LxSOT3qCQ8 yR5hrNctflfolVJwgQsdpx FljNyjPAwmUQanG646XKFk cAruRyHuPKb7D0SiFzg4HS SjxBgvLH7i aTGlSMlmSg8urCrrzFtcPE 5nSKThbkgem878MmZxf7qd TSOyrLQpANfyNRM0S28sa9 Z0REJdDGKy IDE1aOV2bS8bhOdtorwcjU VmdDsgdmVydGljYWwtYWxp J954VKHhkWdsAzMzjLp4O3 WjYuo3VNDb lSynWR7epOWlDTqnXd5yrY qllMflWS1sYFBdlqjkp239 VnRqu6ayMHHqaZKtNMtnCO Z1P77qw6S7 TAOyVZCfCJN3sFW3hT5znC lnbjogbGVmdDsgdmVydGlj LGjwLNwlH533UPYefMjcAk BhdGllbnQg VMbyFLy4I3AqUgqhvGF+PC 06ILUbIP06nANtkYTtm1xc bFb1ClNeFGWqXVY0yHpdWV hyt9ZaXQQn E97mxJNhx0R9BXYilUnvqI BnKaMusBB3rD4eNGdfoutt e0fxibqyYvlds0duzx81tK 34F15nNTuo ZHRoPSIzMCUiIHZhbGlnbj 5gyX3zPp7+FQTybTY7zXM3 hK5kZJUmUoL7ULbeY895Yy RvcCIvPjxj d5mnm4ewzTk3YlB3ZHUxqv OkaYpdRWA9z6PdQa82R65p IHdpZHRoPSIyMCUiIHZhbG bxib4uxK3r Ii8+BCCyyRK9gCZ9fW2lHr OaBtE8PIotO650QgUdeZIf CqveB45zK9CmwWX+PHRyPj d9LZTwxDii GM3raIElLUaqOh6tNWG8Hq VdYzDkKLvrJ1PlJUWtsxll cbkheDO1BGPhHYLmzL76Gz 9udDogMTBw yGUVqY8imajqw1uhvukqAo SqQYPoETi0POb8YSYbuNwi ShTfGLJ9UsK1KEQ7xCKygN 1hbGlnbjog lD1bL7RrVLEvcrfnLo76lC 9uIxLiTaC0SGcwPfk+Qkla F1BGYrjaVg4WKi6tKKyfdT Q+PHRkIHN0 rXniWUfoRUAiyC0aKNJmE2 t9StNbMxC3UYmsP8KkXHUb wndkPa11hJ6rFjSqXuN2AH meP4EpnpD4 GWYogKIqYSfoSVP2O98ps7 A0SDAxITMnWOB0iOA6sY3p bGlnbjogbGVmdDsgdmVydG ljYWwtYWxp B535HPUyjMsdSiB6HnMxUk Y9EPM4P0EdQbj3QUAifPlm ZE5ccQMlNNqmQl6dkVlppN eqAH7oEETs laylHJTgeH0uVDOpkUBamG msME3sQBShfkiej225JzEz FHB3ZBExqTSpA8RppS6kCv AjMDAwMDAw N5KnnCVmLXhuE048OYqkTx L3BWNdzmXhT0ZbXEFozHtm FmA6a6E8Yh54HtSWTTLffl wvdGQ+PHRk RCJ0cYayWOthIQKjnS3mTO XyQ6l6HnWeSrK0JNjkN8Hr VQYsyurkIc71dR4wAmNjNc Y4WMbeM8Ry boD8IGPfmYPtJRbwGDS0P6 9ut1M5VHPpLQGmVIC2eTO1 oE5vhVltikpdbADphMlflf VydGljYWwt MDmeU455PREiyHmsLoRgpF FsZTwvdGQ+LSJuUUQ3cSku RFloDWGdeN2vUJFxF9r6Mo ZzPmA6AMmb Y7FfIXMiknskFf73gQ1cJh DuIuH4ZZfaT1VokkI9OFSk rCMmWPklWJX4G79wp4R2VC MwMDAwMDA7 wZU3hL8qkNbfqrlgmPOxtS ojbiQbzJibQJydUAvyK342 QYZpvOxzVmUpkM2oJZEtQN dlbWVudDwv dGQ+OV02yp76R1MbQpquBd m4YGBtLVK4aWH1rA6fLTNt QCxgj9Q8eKZ9V3CtvyPpjy 9dd5ftAXCb QMkqL32hqEUwu7G7AULvhB D1DDPojFnrUbMrxQ64Atd+ SKLvmYvmq5IgUrugw1rxv9 mqmZw7AnWd KOYzqmOfcWgyOKE8x4KbRz 16P53vJYzzTOCjVRTyVBQw CFNhtBkztk5gaT9iIy8+PG OkmMZ7aDE2 pE1mPlZoBbC9KWalK325Ct TqvCCzAjqbg8swl8xkzGv9 KcHoPIMbucAggKdhRXO1a1 XoZo04R2Ba nAhxt8BhWyw9nc08eMOwh7 S2kIG0J6NiITYvpswtgRFt tConYN8eAVNcrsbzCVGpcB 1uMMSxY7u4 LsYgHgQ4BJcvD2HsdqA0LX VxwFMlVFXixIVQbX2xolmx k0tfxwsxAnElPAHrZJc3DF x6ZAMdzKsw QoNoJRM9GrS7HQS2aZSqfW 1taIdirwuozL9sMin+UGh5 z1hbzNFbHB7smSZ7PJ09FC 09tQObo0I1 wGH7B1KqUCGonqvhncwgeI N5TMYhKJDitS32Uw4fsGdn Rt3iLUKhONS3JNDpsCQgN9 ChbA0rMmFz JGTnMDCmZ3HcwXFoSAgnM6 36UVreQlU2NAVabwJjN4Ke JFTxfSjhYnR1s5D2Fw3WPO 21HX77DN48 wKIiw1J9lYP3M9PnOCWlwr axmzsxjAV6XYMrWIBqfG16 Vb3qwIvyBm4iYSPeNHY4FR BroKAsY8Ph oE1oHxCgQKPqRROgK9CrxO OaHRayR893WXygJsR8GSBv doAdE6LdBIMmhTzzPaX0v5 M5Ja1HOf00 JC20YY16lKQcv4G6hIH6N6 VrMAKvstkjcucurMI0UPSq CEKinT05Fw8pgGxsOz0uDL HkQWC2OJVo dCHvK6SrqA5iYrEqDCQgKT FpC8QqvBUzUWtmU855JVgm HnP2DGAvqpCnA4ZdVSRosC rzLjS4l0N5 Eo6XGPjbiar1K9YwZjwlcY I+PV30RQYdUQ22yJVkiMKl f3oseLu0XyDrPLYfATE5mP yjSXgzu4Iq RRVnY27e (more content not included)... Normal [facility] US KIDNEYSon 05-14-2022 US KIDNEYS EXAMINATION: US [...] 14:20 Normal [facility] Consent for Treatmenton 04-18 Consent for Treatment [id number]#1. 00CD:127 Normal [facility] Legal Correspondence Officeo n 05-09-2022 Legal Correspondence Office [id number]#1. 00CD:127 Normal [facility] Office/Clinic Note-Physician on 05-09-2022 Office/Clinic Note-Physician [id number]#1. 00CD:127 Normal [facility] Patient Correspondenceon Patient Correspondence [id number]#1. 00CD:127 Normal [facility] Patient Correspondence [id number]#1. 00CD:127 Normal [facility] Patient Correspondence [id number]#1. 00CD:127 Normal [facility] Patient History Officeon Patient History Office [id number]#1. 00CD:127 Normal [facility] INSULINon 04-26-2022 Insulin 25.3 uIU/mL Critically high 2.6-24.9 [facility] Comment on above: Performed By: #### I NSULIN ####[facility] [id number] [place], [place] [address]CsDr. Marion Bullard CBC AUTO DIFFon 04-25-2022 BASO # 0.1 103/ul Normal 0.0-0.1 [facility] Comment on above: Performed By: #### C BC #### [facility] [address] [place], [place] [address] Dr. Marion Bullard Basophils/100 WBC (Bld) 0.6 % Normal 0.2-2.0 [facility] Comment on above: Performed By: #### C BC #### [facility] [address] [place] [address] [address] Marion Bullard EO # 0.2 103/ul Normal 0.0-0.7 [facility] Comment on above: Performed By: #### C BC #### [facility] [address] [place] [address] [address] Marion Bullard Eosinophils/100 WBC (Bld) 1.1 % Normal 0.9-7.0 [facility] Comment on above: Performed By: #### C BC #### [facility] [address] [place] [address] Dr. Marion Bullard Erythrocyte distribution width (RBC) [Ratio] 12.7 % Normal 11.0-15.0 [facility] Comment on above: Performed By: #### C BC #### [facility] [address] [place] [address] Dr. Marion Bullard Hematocrit (Bld) [Volume fraction] 43.8 % Normal 36.0-48.0 [facility] Comment on above: Performed By: #### C BC #### [facility] [address] [place] [address] Dr. Marion Bullard Hemoglobin (Bld) [Mass/Vol] 14.6 g/dL Normal 12.0-16.0 [facility] Comment on above: Performed By: #### C BC #### [facility] [address] [place] [address] [address] Marion Bullard IG # 0.11 10e3/ul Critically high 0.00-0.03 [facility] Comment on above: Performed By: #### C BC #### [facility] [address] [place] [address] Dr. Marion Bullard IG % 0.7 % Critically high 0.0-0.5 [facility] Comment on above: Performed By: #### C BC #### [facility] [address] [place] [address] [address] Marion Bullard LYMPH # 3.1 103/ul Normal 1.2-3.8 The [facility] Comment on above: Performed By: #### C BC #### [facility] [address] [place] [address] Dr. Marion Bullard Lymphocytes/100 WBC (Bld) 19.4 % Critically low 20.5-60.0 [facility] Comment on above: Performed By: #### C BC #### [facility] [address] [place] [address] Dr. Marion Bullard MANUAL DIFF REQ NO Normal [facility] Comment on above: Performed By: #### C BC #### [facility] [address] [place] [address] Dr. Marion Bullard MCH (RBC) [Entitic mass] 29.9 pg Normal 26.7-34.0 The [facility] Comment on above: Performed By: #### C BC #### [facility] [address] [place] [address] Dr. Marion Bullard MCHC (RBC) [Mass/Vol] 33.3 g/dL Normal 29.9-35.2 The [facility] Comment on above: Performed By: #### C BC #### [facility] [address] [place] [address] Dr. Marion Bullard MCV (RBC) [Entitic vol] 89.8 fL Normal 81.0-99.0 [facility] Comment on above: Performed By: #### C BC #### [facility] [address] [place] [address] Dr. Marion Bullard MONO # 1.3 103/ul Critically high 0.3-0.[address] [facility] Comment on above: Performed By: #### C BC #### [facility] [address] [place] [address] Dr. Marion Bullard Monocytes/100 WBC (Bld) 8.1 % Normal 1.7-12.0 The [facility] Comment on above: Performed By: #### C BC #### [facility] [address] [place] [address] Dr. Marion Bullard NEUT # 11.3 103/ul Critically high 1.4-6.5 The [facility] Comment on above: Performed By: #### C BC #### [facility] [address] [place], [place] [address] Dr. Marion Bullard Neutrophils/100 WBC (Bld) 70.1 % Normal 43.0-75.0 [facility] Comment on above: Performed By: #### C BC #### [facility] [address] [place] [address] [address] Marion Bullard Platelet mean volume (Bld) [Entitic vol] 8.5 fL Critically low 9.5-13.5 The [facility] Comment on above: Performed By: #### C BC #### [facility] [address] [place] [address] [address] Marion Bullard PLT 488 103/ul Critically high 150-450 [facility] Comment on above: Performed By: #### C BC #### [facility] [address] [place] [address] [address] Marion Bullard RBC 4.88 106/ul Normal 4.20-5.40 The [facility] Comment on above: Performed By: #### C BC #### [facility] [address] [place] [address] [address] Marion Bullard WBC 16.1 103/ul Critically high 4.0-11.0 [facility] Comment on above: Performed By: #### C BC #### [facility] [address] [place] [address] [address] Marion Bullard FREE THYROXINE INDEX T7on FTI 2.69 Normal 1.30-4.50 The [facility] Comment on above: Performed By: #### L IPID, CMP, T7, TSH ####[facility] [id number] [place], [place] [address]AxSolitario Bullard T3U 34.0 % Normal 30.0-39.0 The [facility] Comment on above: Performed By: #### L IPID, CMP, T7, TSH ####[facility] [id number] [place], [place] [address]OiDr. Marion Bullard T4 [Mass/Vol] 7.90 ug/dL Normal 4.80-13.90 The [facility] Comment on above: Performed By: #### L IPID, CMP, T7, TSH ####[facility] [id number] [place], [place] [address]GuSolitario Bullard GLYCOHEMOGLOBIN A1Con 2022 ADA RECOMMENDATION SEE BELOW Normal [facility] Comment on above: Result Comment: ADA RECOMMENDED LIMIT 4.0 - 6.0 ADA THERAPEUTIC TARGET < 7.0 ACTION SUGGESTED > 7.0 Performed By: #### A 1C ####[facility] [id number] [place] [id number]. Marion Bullard Glucose [Mass/Vol] 120 mg/dL Normal [facility] Comment on above: Performed By: #### A 1C ####[facility] [id number] [place] [address]DrSolitario Bullard HbA1c (Bld) [Mass fraction] 5.8 % Normal 4.5-6.2 [facility] Comment on above: Performed By: #### A 1C ####[facility] [address] [place] [address]Dr. Marion Bullard IRONon 04-25-2022 Iron [Mass/Vol] 94.0 ug/dL Normal 50.0-170.[address] [facility] Comment on above: Performed By: #### I NANCY #### [facility] [address] [place] [address] [address] Marion Bullard LIPID PROFILEon 04-25-2022 CHOL-HDL RATIO NORM SEE BELOW Normal [facility] Comment on above: Result Comment: 3.3 - 4.4 LOW RISK 4.4 - 7.1 AVERAGE RISK 7.1 - 11.0 MODERATE RISK >11.0 HIGH RISK Performed By: #### L IPID, CMP, T7, TSH #### [facility] [address] [place] [address] [address] Marion Bullard Cholesterol [Mass/Vol] 193 mg/dL Normal <=200 The [facility] Comment on above: Performed By: #### L IPID, CMP, T7, TSH #### [facility] [address] [place] [address] [address] Marion Bullard Cholesterol in HDL [Mass/Vol] 49 mg/dL Normal 40-60 [facility] Comment on above: Performed By: #### L IPID, CMP, T7, TSH #### [facility] [address] [place] [address] [address] Marion Bullard Cholesterol in LDL [Mass/Vol] 122.4 mg/dL Normal [facility] Comment on above: Performed By: #### L IPID, CMP, T7, TSH #### [facility] [address] [place] [address] [address] Marion Bullard Cholesterol.total/Ch olesterol in HDL [Mass ratio] 3.9 {ratio} Normal [facility] Comment on above: Performed By: #### L IPID, CMP, T7, TSH #### [facility] [address] [place] [address] [address] Marion Bullard HDL NORMAL > or = 60 mg/dl - LO W CARDIOVASCULAR RISK <40 mg/dl - HIGH CARDIOVASCULAR RISK Normal [facility] Comment on above: Performed By: #### L IPID, CMP, T7, TSH #### [facility] [address] [place] [address] [address] Marion Bullard LDL CALC NORMAL SEE BELOW Normal [facility] Comment on above: Result Comment: <100 mg/dl OPTIMAL 100 - 129 mg/dl NEAR OR ABOVE OPTIMAL 130 - 159 mg/dl BORDERLINE HIGH 160 - 189 mg/dl HIGH >190 mg/dl VERY HIGH Performed By: #### L IPID, CMP, T7, TSH #### [facility] [address] [place] [address] [address] Marion Bullard Triglyceride [Mass/Vol] 108 mg/dL Normal <=150 [facility] Comment on above: Performed By: #### L IPID, CMP, T7, TSH #### [facility] [address] [place] [address] [address] Marion Bullard VLDL CALC 21.6 mg/dL Normal [facility] Comment on above: Performed By: #### L IPID, CMP, T7, TSH #### [facility] [address] [place] [address] [address] Marion Bullard PROF 14(COMP METB)on 03-09-2 023 Albumin [Mass/Vol] 3.4 g/dL Normal 3.4-5.0 [facility] Comment on above: Performed By: #### L IPID, CMP, T7, TSH #### [facility] [address] [place] [address] [address] Marion Bullard Albumin/Globulin [Mass ratio] 0.9 {ratio} Normal [facility] Comment on above: Performed By: #### L IPID, CMP, T7, TSH #### [facility] [address] [place] [address] [address] Marion Bullard ALP [Catalytic activity/Vol] 93 U/L Normal 46-116 [facility] Comment on above: Performed By: #### L IPID, CMP, T7, TSH #### [facility] [address] [place] [address] Dr. Marion Bullard ALT [Catalytic activity/Vol] 26 U/L Normal 14-59 [facility] Comment on above: Performed By: #### L IPID, CMP, T7, TSH #### [facility] [address] [place] [address] Dr. Marion Bullard Anion gap [Moles/Vol] 12.7 mmol/L Normal [facility] Comment on above: Performed By: #### L IPID, CMP, T7, TSH #### [facility] [address] [place] [address] Dr. Marion Bullard AST [Catalytic activity/Vol] 21 U/L Normal 15-37 [facility] Comment on above: Performed By: #### L IPID, CMP, T7, TSH #### [facility] [address] [place] [address] Dr. Marion Bullard Bilirubin [Mass/Vol] 0.5 mg/dL Normal 0.2-1.0 [facility] Comment on above: Performed By: #### L IPID, CMP, T7, TSH #### [facility] [address] [place] [address] Dr. Marion Bullard Calcium [Mass/Vol] 9.1 mg/dL Normal 8.5-10.1 [facility] Comment on above: Performed By: #### L IPID, CMP, T7, TSH #### [facility] [address] [place] [address] [address] Marion Bullard Chloride [Moles/Vol] 104 mmol/L Normal 98-107 [facility] Comment on above: Performed By: #### L IPID, CMP, T7, TSH #### [facility] [address] [place] [address] Dr. Marion Bullard CO2 [Moles/Vol] 29.2 mmol/L Normal 21.0-32.0 [facility] Comment on above: Performed By: #### L IPID, CMP, T7, TSH #### [facility] [address] [place] [address] Dr. Marion Bullard Creatinine [Mass/Vol] 0.68 mg/dL Normal 0.55-1.02 [facility] Comment on above: Performed By: #### L IPID, CMP, T7, TSH #### [facility] [address] [place] [address] Dr. Marion Bullard EGFR-AF UZBEK >60 Normal >=60 [facility] Comment on above: Performed By: #### L IPID, CMP, T7, TSH #### [facility] [address] [place] [address] Dr. Marion Bullard EGFR-NON AF UZBEK >60 Normal >=60 [facility] Comment on above: Performed By: #### L IPID, CMP, T7, TSH #### [facility] [address] [place] [address] Dr. Marion Bullard Globulin (S) [Mass/Vol] 3.9 g/dL Normal [facility] Comment on above: Performed By: #### L IPID, CMP, T7, TSH #### [facility] [address] [place] [address] Dr. Marion Bullard Glucose [Mass/Vol] 103 mg/dL Normal 74-106 [facility] Comment on above: Performed By: #### L IPID, CMP, T7, TSH #### [facility] [address] [place] [address] Dr. Marion Bullard Potassium [Moles/Vol] 3.9 mmol/L Normal 3.5-5.1 The [facility] Comment on above: Performed By: #### L IPID, CMP, T7, TSH #### [facility] [address] [place] [address] Dr. Marion Bullard Protein [Mass/Vol] 7.3 g/dL Normal 6.4-8.2 [facility] Comment on above: Performed By: #### L IPID, CMP, T7, TSH #### [facility] [address] [place] [address] Dr. Marion Bullard Sodium [Moles/Vol] 142 mmol/L Normal 136-145 [facility] Comment on above: Performed By: #### L IPID, CMP, T7, TSH #### [facility] [address] [place] [address] Dr. Marion Bullard Urea nitrogen [Mass/Vol] 13.0 mg/dL Normal 7.0-18.0 The [facility] Comment on above: Performed By: #### L IPID, CMP, T7, TSH #### [facility] [address] [place] [address] Dr. Marion Bullard Urea nitrogen/Creatinine [Mass ratio] 19.1 mg/mg Normal The [facility] Comment on above: Performed By: #### L IPID, CMP, T7, TSH #### [facility] [address] [place] [address] Dr. Marion Bullard PROTIMEon 04-25-2022 INR Coag (PPP) [Relative time] 0.95 {INR} Normal The [facility] Comment on above: Performed By: #### P TT, PT #### [facility] [address] [place] [address] Dr. Marion Bullard INR GUIDELINES SEE BELOW Normal [facility] Comment on above: Result Comment: YARELI RED INR: 2.0 - 3.0 CONDITIONS NOT LISTED BELOW 2.5 - 3.5 FOR PROSTHETIC HEART VALVE REPLACEMENT 2.5 - 3.5 RECURRENT THROMBOSIS Performed By: #### P TT, PT #### [facility] [address] [place] [address] Dr. Marion Bullard PT Coag (PPP) [Time] 10.1 s Normal 9.0-11.6 [facility] Comment on above: Performed By: #### P TT, PT #### [facility] [address] [place], [place] [address] Dr. Marion Bullard PTTon 04-25-2022 aPTT Coag (Bld) [Time] 27.3 s Normal 22.3-36.2 [facility] Comment on above: Performed By: #### P TT, PT #### [facility] [address] [place], [place] [address] Dr. Marion Bullard TSHon 04-25-2022 TSH 3.782 uIU/mL Critically high 0.358-3.740 [facility] Comment on above: Performed By: #### L IPID, CMP, T7, TSH #### [facility] [address] [place], [place] [address] Dr. Marion Bullard XR HAND LT MIN [...] 16:06 Normal [facility] Coding Summary.on 03-21-2022 Coding Summary. CD:[id number] Gh 0bWw+PGhlYWQ+ET5ERREoI 89ugMQvnJ2JC8kTWR2KOVW PWKLBEO7LJX4sjUD6CLpiJ 2VybiAv IdzpkBTbGJ72QEj5XUL8qK wdGIatlD2hnREjA8c9AhAz RK45kS53MSkpVHDkFpH9Bs ZpbjsgbWFy L9mvXtIjyPHnEdn+PHRhYm xlIHdpZHRoPScxMDAlJyBz vEuwAZ3aBy0sNOAfFXDskO xhcHNlOiBj l2ybBAUuZLxsME9czBeiC6 EwmRO7KILdh8a1Xu18wDO+ YBUdLHH6dCzrJBwtq929Hx Imu0gdEWI3 iRPrITgpPQR1O89dd5Y6SI MmZLLjSHH3iWR3rT3acVru uzfyX9HvbQFdRoZ3HUQ6gY AisY8aoIpv logpeQ2mNtb+C70PII7FPX XFHS8JZyz8Y9PvErbbbNN+ TM87RNTfRS69iDImfUQzw2 wsnDg3EwTk YTSrDTX0uXqmXPprq0IxIF MaY19bvTFgt7H5WLAkkShq bCCcHiDbcPH1mQ0lRDxvcq lgg0rainxc Uvigb4nlab23wP65X60xYA nxOQMaQGY2PVTkTQYetUlu lp3srL9aXz4+BBxwc1xoc3 cmxOg2KcCo VQVqjaIwpClfERR4h8AsOb 34R6GluDsml8YoFhd4mv60 wXJcz0U0kNS9EBohSDIzsS 6jONuhDlR8 OVOjIbCdxB40xVNcCCgcCf 3svOqdtEmwGX1gVMBjcvjc OZLyaD5oNUJqnZOxxZndBD 4wNTBpbjtm h207GfZsACX8WYDnjQKfV7 NedO5pSdPsXYKfENPiS6Gb oFArKFcwR555YWupUjI6FO RsiqLbY1Ik IQVrfNdwVvJ8n7J1Id5Cu3 UqyqguAAL0NZgvFHZpZaEi TpVyNmK0Z3PiHqi5EVPcjE hoCD7zF8Ji PWDtnhzdectnvPH6LRGhWA MkwE08xECpKNmtPb5ay8R8 h782YUYjVVMzeE92Ww2ukD ogMTBwdCBU cY5gouinq3hkimtdIoVnAG HlVIa4UJk8FKYwnLmbWiWr XTL6HxG3MDY7sCCbrE6tdT jooqqylF9k Oyc+G74ziL1rTWX7WGM6xn rhKTCfvrSeQN83VJ16X9Zy PjwvdGFibGU+PGRpdiBzdH enER1zKkPh f0tde3WkPAixR4WeMMOeYU zjFty9CDFdSUW9iSF2hE7s ZEHcXReuy5U4xEO6Z9Qcyh Uifo2bw1oe CUYtMXsiD58wgYBzf6Q5TR QubII5TWCewJjbNaRqkT06 Oyc+BXCmpRbxd3AkDbkzp2 cke0ayvTz0 VwDoDUKwdxLegXhdDKA0k7 XpNs75A15qIGmsRULcBNJq TULjTWUidKgsvh3kcI1dFc 8+PGNvbCB3 aGO8uQ5xIQVuUaX9LEaxQ4 37XgZvsRHvGmxsn7ymr0zj gYd2ToHwIKOaqkUvvReuOR B5c6TvCb31 P21nLKfeAVQfARWaTJCaGL JbwFpfpa0zeE7fZc4+PC9j q5blfp98uO15wIZ+PHRkIH E7xWivCLla YACeeV2yHPhsFiF3BPErRc WcjJ28mKCdXHmoQt3jaMjz bZjdWD1hTDCnajpcb126Hp Qwe6fdZXGy qRGfSEjnIRQ8N14ca5C9QY JyHFPiHIA8rUJ8iH3xoBaa bjogbGVmdDsgdmVydGljYW ilKAgqD685 IHRvcDsnPlBhdGllbnQgTm HaTDb0E1OmVgs7OLIlhIet LV0jsJUlMMdcVz9iwNbpgN clTD7wGIOw zdyne527TcIjd0qkLFNooR JrJDvdGWX1T47qk1Y8YUWf QRNtJCB1zTY2mP9gvWhowh ogbGVmdDsg uqTzuXkfCSvkMVvhM752YI RvcDsnPkJpcnRoIERhdGU6 IH98MB92mKQnj7K2cUA3X3 BhZGRpbmct mqyuySK8GFHnGKAheW25Wq 1dtCvtEi8pDUAkAEC6LDJl pMExE2XpwS9qQtIzLBVxIL YfG9MvrMEm XGeqI246XBlrIxU9GECnbr OrK7DaDNYoaKvePtJ7f3A2 Ny8PU8I0SO61WM84cMUjj4 Z6dVE4S5Op PZDuejzhlhnskRU9IQJzMG IaoF39Mk9xwZgsNi6zEFHm OFT5QTAeyYFcC4HziK5tHs AjMDAwMDAw C2CycUZlMPxdG198RHyiUy Y3ZINvtwJnB2AbOCEuvIso QoS1j3L8Df2CRLz2QC81NS 22vYRng8Q7 vEP0D9YfHQKkjjvvygqtzM C1TKYqPZExuW65Kj2leIsw Rz3yGQKoZAR9FKLxyWZyA2 VigQ2jPxXb FWSkNUJlZ3DugNQjTLidA2 51VTuuXrJ7HOJqjgFmW6Jx XEVdbBtlGsX5l1D7Qb0AET PwQY58PRO3 dHQ8OA00LO64W2QyWgrouU FibGU+PHRhYmxlIHdpZHRo JWprFXSwNdXmwRkkFT3mGq 9yZGVyLWNv wFfghCGvHuHgd6kdUWAnRC nvLC0wmHweX1KhbEF1UZHs u9c3Rn78O04xT6TotCT+PG TycSV3tLB1 kD6iGoHdKpI9AZzxA109Vc CgbFRtNqgoe5gzy7okwXf6 BwP8LWQibiJmeNrnWOD3m0 ApAb78V89w IHdpZHRoPSIxNSUiIHZhbG rkcx2kaJ7pUm5+PGNvbCB3 oZD9hN7zKeEoQbC2GLooS9 49InRvcCIv Agtdc6oug3kzkDj7JpKhSC LqmzBwsBdjXLO9d7XdSn41 F8ZdaIbiu7HhWdb5hp51eN Tuz1J1lND0 P1BzXIVzvmvmuRZuuUxeZL 4nXPAjukkbJBLbaD7pEDKo F7n5UwHsWgC9HWxjT3Qbys L4WZUzrAHb DDkxZJS0I45ut1T9VDKgGH XyIYM8vQO8lZ9huUhpzxve bGVmdDsgdmVydGljYWwtYW cgE421VGIr iYxpQWZgkL8oWHOcmAJmyQ bsSW9yFMKieuulMgYZBk0C ZIvcBLgHZO3QMC78O9XfLt k2INLhcQkb TM5lmIFkAFlvYo0adRxbgC qwMO9qNTLxpkpmZCVutJ0d LOMunMTftVsuGY0qTEUagr cmi696SlIc OIG7WIXdeZZrQ6DleJ8lYg QfHFGnYVZdC3HmkAKzDVgk O117DVjoYyM4NBIxnzYeM7 FsLWFsaWdu ElM2q1I6Av9kDD5eVa8sEF N4OF91YL10oUGuv2V8dRF4 E9MdHFUjqtkkdiowwNO5SO TpQDLteR44 fECrUVqmTj1ak0S0c617DM XwQWQuqL28Kg8ciScaAFMn fIQIbF4fxhguo1ixgsxpGt AwMDAwMDt0 GUl6ICHiuOfsKqYoRCL8Ip Q1BFH9mCYdzK4xhFytfxlc uO1uMsm+YyJxOZDgplK7H2 DsBlj2NJHp oZugQS7uyAKjCIhhEf9edX gryMqgVI1xLBFnuenhBRVh cC1vVORabLQhpZwmEJ6kFP Gdndscd287 OcOoIYQ1QUZvaVUoW4ZnhY 1xEwEbCNKeZEVwU1JbjDWj EZduA684WXqbVsR1PWLnqu IoG9PiLNZw hGuiWkD1i6O9Mw0TOI1fgO M9A6CaEhb4XZXlfJerAQ8x wNExSPbzEu5nzWuuxBsoUB 4wNTBpbjtw LDCgaI0dVQEetHQdmHvsKN 8qDPRfgoccx793AgOlGNJ4 STGgeDIwO7ItiX7bIwPiCH IcWFCuV0Hz qOIrWXmqR632VOzlGmN4TR HvebVbX7NbPGKogOptQmY7 e4K5Oh7HXQhsNJ2jzyZeKR 3otkA0O9Qb PjwvdHI+SA33VZXcZP26nA BigMOyl9vmwOx5HeOxGQNg BBG6zOsxLSjvh8XjOLRdB9 7paWYvf8Z1 LZDptBxljJCuExChpYY5aB 7sAVbamoxkn8kyczyqOmon m1syki11iX27I98gEVbhQO RoPSIzMCUi AYFsvBtkph7tqW7vIr7+PG CarQP2jTP0dE3fKuJpCxM2 YBhhZ849NiBcbCQaYetio1 cbx3uxzHh9 TuPsQFAuxtPptZimYLL2i0 LtLy96C08eUEwvMKLoXAMw KJTzIVWjmEsffc9vqL9rOk 8+YV0kf3kj ur84vW94qMG+ROKfDLO2sI pmZZcaTGShkY8tRLfiByX3 BFKiGvJvhZ88uIPbBXtmYw 1yaWdodDog CH4oAZBnopokn525IuKap9 dzNESroDBaUWoeWFQ1M69d v2H5TBPpWOMxWKC9qXQ7fE 1hbGlnbjog bGVmdDsgdmVydGljYWwtYW viK198BJOhfXxdBoGihHQl L2pglcCWIE0lIysndCU+PH FnFDD9wHpt DOfbQNGccF5rFSUvZ2a8Mv OlTzD8MGzfG6CsjcK7ZHPc hCGoPWIwuLHZlG7iqmtmn5 xvcjogIzAw WUYiYId4SNw6CMUkfUqzKu VgHRG5FzG8GXY2yCZfhU5r lSbeevhjlS3uGie+RklOOj wvdGQ+PHRk UIN7rEccCTnqYMLqoO8nTC UdC1i5WfRhLmJ1KEsjM7Dt meQ2VZFvjFKtCXXjvPNDrU 4ujwxyr2rg oxtjMxKnTWJxLOf0AGo5MR ImhYzfJtLkBTI7UeF1XHF8 pUBjkH9wjVlttrmpaO5iIu c+TVJOOjwv dGQ+BLOtYKM7jWufULlmNH GfxL0lGFCwC3x3ImMrSbO7 OMszH4OnclK8UXEybBGaZA GcnEYYuB9w ngmok2oyumeoMpHpSTHpJR z9IZi0JLWyaHdgFsNnTGN3 [id number] opzV4tPen+ [id number] wvdGFibGU+PHRhYmxlIHdp ZHRoPScxMDAlJyBzdHlsZT 1tOw3yNYXl LWNv (more content not included)... [facility] Consent for Procedure/Surger yon 03-20-2022 Consent for Procedure/Surgery [id number] 0CD:127 [facility] Consent for Treatmenton Consent for Treatment [id number]. 00CD:127 [facility] Discharge Instructionson Discharge Instructions [id number] 0CD:127 [facility] IntraOperative Documentson 0 03-20-2022 IntraOperative Documents [id number] 0CD:127 [facility] IntraOperative Documents [id number] 0CD:127 [facility] Main OR Intraoperative Recor don 03-20-2022 Main OR Intraoperative Record IntraOp Document Type FTPM Summary Primary Physician: Gerald Pham MD Finalized Date/Time: 03/20/22 13:43:47 Pt. Name: SHELLY HUMPHREYS/Sex: 1955 Female Med Rec #: [id number] Physician: Gerald Pham MD Financial #: [id number] Pt. Type: P Room/Bed: / Admit/Disch: 03/20/22 [...] RN, Ananya Role Performed Surgeon - Primary Leases And Land Supervisor - Primary Scrub - Primary Time In [...] Ronak Rodriguez Role Performed Staff - Other Editor House Organ Time In 03/20/22 13:34:00 03/20/22 13:34:00 Time [...] and tissue Entry 1 Skin Integrity Intact, Uncertain, Warm, and Skin Abnormality No Dry Outcomes [...] Extended Posit (more content not included)... Normal [facility] Main OR Preoperative Recordo n 03-20-2022 Main OR Preoperative Record Holding Area Document Type FTPM Summary Primary Physician: Gerald Pham MD Finalized Date/Time: 03/20/22 13:30:04 Pt. Name: SHELLY HUMPHREYS Rei Gamboa/Sex: 1955 Female Med Rec #: [id number] Physician: Gerald Pham MD Financial #: [id number] Pt. Type: P Room/Bed: / Admit/Disch: 03/20/22 [...] Signed By: Brittnee Blackburn RN 03/20/22 13:30 [facility] Operative Reporton Operative Report SURGERY DATE: 03/20/2022 [...] condition. Gerald Pham M.D. lr Dictated: 03/20/2022 [id number] Transcribed: 03/20/2022 [facility] Comment on above: Result Comment: Elec tronically Signed By: Ankit HUDSON, Gerald\.br\Date and Time Signed: 03/20/22 16:39 EST Patient Correspondenceon Patient Correspondence [id number] 0CD:127 Normal [facility] Vital Signs Date Time Vital Sign Value Performing Clinician Facility 02-21-2023 [id number] Diastolic blood pressure 101 mm[Hg] Nyasia [employer] [facility] 02-21-2023 15:11-0500 Heart rate 74 /min Nyasia Helton [facility] 02-21-2023 15:11-0500 Mean blood pressure 116 mm[Hg] Nyasia Helton [facility] 02-21-2023 15:11-0500 Respiratory rate 18 /min Nyasia Helton [facility] 02-21-2023 15:11-0500 Systolic blood pressure 147 mm[Hg] Nyasiataras Helton [facility] 01-20-2023 13:49-0500 Heart rate 81 /min Barry Neeraj [facility] 01-20-2023 13:49-0500 SaO2% (BldA) [Mass fraction] 98 % Barry Neeraj [facility] 01-20-2023 13:49-0500 Diastolic blood pressure 84 mm[Hg] Barry Neeraj [facility] 01-20-2023 13:49-0500 Mean blood pressure 109 mm[Hg] Barry Neeraj [facility] 01-20-2023 13:49-0500 Systolic blood pressure 160 mm[Hg] Barry Neeraj [facility] 01-20-2023 13:49-0500 Respiratory rate 16 /min Barry Neeraj [facility] 01-20-2023 13:43-0500 Diastolic blood pressure 94 mm[Hg] Barry Neeraj [facility] 01-20-2023 13:43-0500 Heart rate 76 /min Barry Neeraj [facility] 01-20-2023 13:43-0500 SaO2% (BldA) [Mass fraction] 98 % Barry Neeraj [facility] 01-20-2023 13:43-0500 Systolic blood pressure 159 mm[Hg] Barry Pickard [facility] 01-20-2023 13:35-0500 Heart rate 87 /min Barry Pickard [facility] 01-20-2023 13:35-0500 SaO2% (BldA) [Mass fraction] 98 % Barry Pickard [facility] 01-20-2023 13:35-0500 Diastolic blood pressure 77 mm[Hg] Barry Pickard [facility] 01-20-2023 13:35-0500 Mean blood pressure 98 mm[Hg] Barry Pickard [facility] 01-20-2023 13:35-0500 Systolic blood pressure 140 mm[Hg] Barry Pickard [facility] 01-20-2023 13:33-0500 Respiratory rate 14 /min Barry Pickard [facility] 06-24-2022 13:44-0400 Body temperature 98.49 [degF] John Liz MD Work Phone: [facility] 06-24-2022 13:44-0400 Body weight 93.44 kg John Liz MD Work Phone: [facility] 05-09-2022 14:51-0400 Diastolic blood pressure 79 mm[Hg] Gerald Zumbar [facility] 05-09-2022 14:51-0400 Heart rate 90 /min Gerald Zumbar [facility] 05-09-2022 14:51-0400 Mean blood pressure 94 mm[Hg] Gerald Zumbar [facility] 05-09-2022 14:51-0400 Respiratory rate 16 /min Gerald Zumbar [facility] 05-09-2022 14:51-0400 Systolic blood pressure 125 mm[Hg] Gerald Zumbar [facility] 03-20-2022 13:46-0500 Diastolic blood pressure 65 mm[Hg] Gerald Zumbar [facility] 03-20-2022 13:46-0500 Heart rate 89 /min Egrald Zumbar [facility] 03-20-2022 13:46-0500 Mean blood pressure 85 mm[Hg] Gerald Zumbar [facility] 03-20-2022 13:46-0500 Systolic blood pressure 124 mm[Hg] Gerald Zumbar [facility] 03-20-2022 13:37-0500 Diastolic blood pressure 107 mm[Hg] Gerald Zumbar [facility] 03-20-2022 13:37-0500 Heart rate 80 /min Gerald Zumbar [facility] 03-20-2022 13:37-0500 Respiratory rate 14 /min Gerald Zumbar [facility] 03-20-2022 13:37-0500 SaO2% (BldA) [Mass fraction] 98 % Gerald Zumbar [facility] 03-20-2022 13:37-0500 Systolic blood pressure 144 mm[Hg] Gerald Zumbar [facility] 03-20-2022 13:23-0500 Heart rate 82 /min Gerald Zumbar [facility] 03-20-2022 13:23-0500 SaO2% (BldA) [Mass fraction] 96 % Gerald Zumbar [facility] 03-20-2022 13:23-0500 Diastolic blood pressure 85 mm[Hg] Gerald Zumbar [facility] 03-20-2022 13:23-0500 Mean blood pressure 107 mm[Hg] Gerald Zumbar [facility] 03-20-2022 13:23-0500 Systolic blood pressure 149 mm[Hg] Gerald Zumbar [facility] 03-20-2022 13:23-0500 Body temperature 98.06 [degF] Gerald Zumbar [facility] 03-20-2022 13:22-0500 Respiratory rate 12 /min Gerald Zumbar [facility] 01-23-2022 09:24-0500 Diastolic blood pressure 81 mm[Hg] Gerald Zumbar [facility] 01-23-2022 09:24-0500 Heart rate 81 /min Gerald Zumbar [facility] 01-23-2022 09:24-0500 Mean blood pressure 100 mm[Hg] Gerald Zumbar [facility] 01-23-2022 09:24-0500 Respiratory rate 12 /min Gerald Zumbar [facility] 01-23-2022 09:24-0500 Systolic blood pressure 137 mm[Hg] Gerald Zumbar [facility] 11-20-2021 07:59-0400 Diastolic blood pressure 94 mm[Hg] Cezar Coe [facility] 11-20-2021 07:59-0400 Heart rate 76 /min Cezar Coe [facility] 11-20-2021 07:59-0400 Mean blood pressure 115 mm[Hg] Cezar Coe [facility] 11-20-2021 07:59-0400 Systolic blood pressure 158 mm[Hg] Cezar Coe [facility] 11-15-2021 14:24-0400 Diastolic blood pressure 89 mm[Hg] Gerald Zumbar [facility] 11-15-2021 14:24-0400 Heart rate 83 /min Gerald Zumbar [facility] 11-15-2021 14:24-0400 Mean blood pressure 108 mm[Hg] Gerald Zumbar [facility] 11-15-2021 14:24-0400 Respiratory rate 12 /min Gerald Zumbar [facility] 11-15-2021 14:24-0400 Systolic blood pressure 145 mm[Hg] Gerald Zumbar [facility] Encounters Encounter Date Encounter Type Care Provider Facility Start: 03-10-2023 End: 03-10-2023 ambulatory ADÁN LALA Facility:[facility] Start: 02-21-2023 End: 02-22-2023 ambulatory Nyasia Helton [place] [place]: 02-21-2023 End: 02-21-2023 Pain Management Nyasia Helton [facility] Start: 01-22-2023 End: 01-22-2023 ambulatory ADÁN LALA Facility:[facility] Start: 01-22-2023 End: 01-22-2023 Patient encounter procedure John Liz MD Work Phone: Rheumatology Comment on above: Seropositive rheumat oid arthritis (HCC) (Primary Dx); Medication monitoring encounter Start: 01-20-2023 End: 01-21-2023 ambulatory Barry Pickard [place] [place] Start: 01-20-2023 End: 01-20-2023 Pain Management Barry Pickard [facility] Start: 01-17-2023 End: 01-17-2023 ambulatory ADÁN LALA Facility:[facility] Start: 12-12-2022 Refill John Liz MD [...] Start: 09-25-2022 End: 09-25-2022 ambulatory JOHN MODEL Facility:[facility] Start: 09-25-2022 End: 09-25-2022 Patient encounter procedure John Liz MD Work Phone: Rheumatology Comment on above: Seropositive rheumat oid arthritis (HCC) (Primary Dx); Medication monitoring encounter Start: 08-06-2022 End: 08-06-2022 ambulatory JOHN MODEL Facility:[facility] Start: 06-27-2022 End: 06-28-2022 ambulatory YANNA MILLER Facility:[facility] Start: 06-27-2022 End: 06-27-2022 Patient encounter procedure Yanna Miller MD Work Phone: Dermatology Comment on above: Psoriasis (Primary D x); Intertrigo Start: 06-26-2022 Telephone encounter John Liz MD Work Phone: Rheumatology Comment on above: Results Start: 06-26-2022 End: 06-27-2022 ambulatory MD Gerald Pham [place] [place] Start: 06-24-2022 End: 06-24-2022 ambulatory JOHN LIZ Facility:[facility] Start: 06-24-2022 End: 06-24-2022 Patient encounter procedure John Liz MD Work Phone: Rheumatology Comment on above: Bilateral hand swell ing (Primary Dx); Psoriasis Start: 06-19-2022 End: 06-20-[address] ADÁN LALA . Facility: Start: 05-30-2022 End: 05-31-2022 ambulatory Gerald Pham [place] [place] Start: 05-30-2022 End: 05-30-2022 Patient encounter procedure Gerald Pham [facility] Start: 05-14-2022 End: 05-15-[address] ADÁN LALA . Facility: Start: 05-09-2022 End: 05-10-2022 ambulatory Gerald Pham [place] [place] Start: 05-09-2022 End: 05-09-2022 Pain Management Gerald Pham [facility] Start: 04-25-2022 End: 04-26-[address] ADÁN LALA . Facility: Start: 03-29-2022 End: 03-30-[address] ADÁN LALA . Facility: Start: 03-20-2022 End: 03-21-2022 ambulatory Gerald Pham [place] [place] Start: 03-20-2022 End: 03-20-2022 Pain Management Gerald Pham [facility] Start: 01-23-2022 End: 01-23-2022 Pain Management Gerald Arangoumbcathleen [facility] Start: 11-20-2021 End: 11-20-2021 Patient encounter procedure Cezar Coe [facility] Start: 11-15-2021 End: 11-15-2021 Pain Management Gerald Pham [facility] Procedures Date Procedure Procedure Detail Performing Clinician [...] Vaccine (2 - Td or Tdap) [facility] Start: 01-17-2026 Diabetes Screening Diabetes Screenin [facility] Start: 09-25-2025 DIABETES SCREEN DIABETES SCREEN [facility] Start: 09-25-2025 Diabetes Screening Diabetes Screenin [facility] Start: 08-06-2025 DIABETES SCREEN DIABETES SCREEN [facility] Start: 06-24-2025 DIABETES SCREEN DIABETES SCREEN [facility] Start: 04-23-2023 End: 01-23-2024 CBC W Auto Differential panel - Blood CBC + DIFF Lab Routine Seropositive rheumatoid arthritis (HCC) Medication monitoring encounter Expected: 04/23/2023, Expires: 01/23/2024 [facility] Work Phone: Comment on above: Expected: 04/23/2023 , Expires: 01/23/2024 Start: 04-23-2023 End: 01-23-2024 Comprehensive metabolic 2000 panel - Serum or Plasma COMP METABOLIC PANEL Lab Routine Seropositive rheumatoid arthritis (HCC) Medication monitoring encounter Expected: 04/23/2023, Expires: 01/23/2024 [facility] Work Phone: Comment on above: Expected: 04/23/2023 , Expires: 01/23/2024 Start: 04-23-2023 End: 01-23-2024 Erythrocyte sedimentation rate SED RATE WESTERGREN Lab Routine Seropositive rheumatoid arthritis (HCC) Medication monitoring encounter Expected: 04/23/2023, Expires: 01/23/2024 [facility] Work Phone: Comment on above: Expected: 04/23/2023 , Expires: 01/23/2024 Start: 12-12-2022 End: 12-13-2023 CBC W Auto Differential panel - Blood CBC + DIFF Lab Routine Seropositive rheumatoid arthritis (HCC) Medication monitoring encounter Expected: 12/12/2022, Expires: 12/13/2023 [facility] Work Phone: Comment on above: Expected: 12/12/2022 , Expires: 12/13/2023 Start: 12-12-2022 End: 12-13-2023 Comprehensive metabolic 2000 panel - Serum or Plasma COMP METABOLIC PANEL Lab Routine Seropositive rheumatoid arthritis (HCC) Medication monitoring encounter Expected: 12/12/2022, Expires: 12/13/2023 [facility] Work Phone: Comment on above: Expected: 12/12/2022 , Expires: 12/13/2023 Start: 12-12-2022 End: 12-13-2023 Erythrocyte sedimentation rate SED RATE WESTERGREN Lab Routine Seropositive rheumatoid arthritis (HCC) Medication monitoring encounter Expected: 12/12/2022, Expires: 12/13/2023 [facility] Work Phone: Comment on above: Expected: 12/12/2022 , Expires: 12/13/2023 Start: 10-18-2022 Influenza vaccination C [facility] Start: 09-25-2022 End: 09-26-2023 Comprehensive metabolic 2000 panel - Serum or Plasma [facility] Work Phone: Comment on above: Expected: 09/25/2022 , Expires: 09/26/2023 Start: 09-25-2022 End: 09-26-2023 Erythrocyte sedimentation rate [facility] Work Phone: Comment on above: Expected: 09/25/2022 , Expires: 09/26/2023 Start: 06-26-2022 End: 06-27-2023 CBC W Auto Differential panel - Blood CBC + DIFF Lab Routine Inflammatory arthritis Medication monitoring encounter Expected: 06/26/2022, Expires: 06/27/2023 [facility] Work Phone: Comment on above: Expected: 06/26/2022 , Expires: 06/27/2023 Start: 06-26-2022 End: 08-26-2022 Chronic hepatitis differentiation between hepatitis B and C virus panel - Serum or Plasma HEP REMOTE PANEL BL Lab Routine Inflammatory arthritis Medication monitoring encounter Expected: 06/26/2022, Expires: 08/26/2022 [facility] Work Phone: Comment on above: Expected: 06/26/2022 , Expires: 08/26/2022 Start: 06-26-2022 End: 06-27-2023 Comprehensive metabolic 2000 panel - Serum or Plasma COMP METABOLIC PANEL Lab Routine Inflammatory arthritis Medication monitoring encounter Expected: 06/26/2022, Expires: 06/27/2023 [facility] Work Phone: Comment on above: Expected: 06/26/2022 , Expires: 06/27/2023 Start: 06-26-2022 End: 06-27-2023 Erythrocyte sedimentation rate SED RATE WESTERGREN Lab Routine Inflammatory arthritis Medication monitoring encounter Expected: 06/26/2022, Expires: 06/27/2023 [facility] Work Phone: Comment on above: Expected: 06/26/2022 , Expires: 06/27/2023 Start: 06-24-2022 End: 06-25-2023 C reactive protein [Mass/volume] in Serum or Plasma [facility] Work Phone: Comment on above: Expected: 06/24/2022 , Expires: 06/25/2023 Start: 06-24-2022 End: 08-24-2022 Comprehensive metabolic 2000 panel - Serum or Plasma [facility] Work Phone: Comment on above: Expected: 06/24/2022 , Expires: 08/24/2022 Start: 06-24-2022 End: 08-24-2022 Creatine kinase [Enzymatic activity/volume] in Serum or Plasma [facility] Work Phone: Comment on above: Expected: 06/24/2022 , Expires: 08/24/2022 Start: 06-24-2022 End: 06-25-2023 Cyclic citrullinated peptide IgG Ab [Units/volume] in Serum or Plasma [facility] Work Phone: Comment on above: Expected: 06/24/2022 , Expires: 06/25/2023 Start: 06-24-2022 End: 06-25-2023 Nuclear Ab [Presence] in Serum by Immunoassay [facility] Work Phone: Comment on above: Expected: 06/24/2022 , Expires: 06/25/2023 Start: 06-24-2022 End: 08-24-2022 PROTEIN ELECTROPHORESIS SERUM W/INTERP [facility] Work Phone: Comment on above: Expected: 06/24/2022 , Expires: 08/24/2022 Start: 06-24-2022 End: 06-25-2023 Rheumatoid factor [Units/volume] in Serum or Plasma [facility] Work Phone: Comment on above: Expected: 06/24/2022 , Expires: 06/25/2023 Start: 06-24-2022 End: 08-24-2022 Urate [Mass/volume] in Serum or Plasma [facility] Work Phone: Comment on above: Expected: 06/24/2022 , Expires: 08/24/2022 Start: 02-17-2022 ADVANCE DIRECTIVE DISCUSSION ADVANCE DIRECTIVE DISCUSSION [facility] Start: 02-17-2022 DEPRESSION ASSESSMENT DEPRESSION ASS ESSMENT [facility] Start: 09-28-2020 BONE DENSITY BONE DENSITY [facility] Start: 09-28-2020 Bone Density Screening Bone Density Screening [facility] Start: 09-28-2020 PNEUMOCOCCAL: 65+ (1 - PCV) PNEUMOCOCCAL: 65+ (1 - PCV) [facility] Start: 02-28-2017 Pneumococcal Vaccine : 65+ (2 - PCV) Pneumococcal Vaccine: 65+ (2 - PCV) [facility] Start: 2015 RSV Vaccine (1 - 1-d ose 60+ series) RSV Vaccine (1 - 1-dose 60+ series) [facility] Start: 09-28-2005 SHINGRIX VACCINE (1 of 2) BA GRIX VACCINE (1 of 2) [facility] Start: 09-28-2000 COLOGUARD (FIT-DNA) COLOGUARD (FIT-D NA) [facility] Start: 09-28-2000 Colonoscopy COLONOSCOPY [facility] Start: 09-28-2000 COLORECTAL CANCER SCREENING COLORECTAL CANCER SCREENING [facility] Start: 09-28-[address] COLONOGRAPHY [facility] Start: 09-28-2000 DIABETES SCREEN DIABETES SCREEN [facility] Start: 09-28-2000 FECAL OCCULT BLOOD FECAL OCCULT BLOO D [facility] Start: 09-28-2000 Lipid 1996 panel - S west or Plasma Lipid Screening [facility] Start: 09-28-2000 LIPID SCREEN LIPID SCREEN [facility] Start: 09-28-2000 SIGMOIDOSCOPY SIGMOIDOSCOPY [facility] Start: 1995 Mammography [facility] Start: 09-28-1974 SHINGRIX VACCINE (1 of 2) BA GRIX VACCINE (1 of 2) [facility] Start: 09-28-1974 Urine microalbumin profile [facility] Start: 09-28-1973 HEPATITIS C SCREENING HEPATITIS C SC JOSE [facility] Start: 09-28-1961 Pneumococcal Vaccine : 65+ (1 - PCV) Pneumococcal Vaccine: 65+ (1 - PCV) [facility] Start: 09-28-1961 PNEUMOCOCCAL: 65+ (1 - PCV) PNEUMOCOCCAL: 65+ (1 - PCV) [facility] Start: 09-28-1960 COVID-19 VACCINE (#1) COVID-19 VACCI NE (#1) [facility] Start: 03-31-1956 COVID-19 VACCINE (#1) COVID-19 VACCI NE (#1) [facility] CBC W Auto Different ial panel - Blood CBC + DIFF Lab Routine Bilateral hand swelling 06/24/2022 3:03 PM EDT [facility] Work Phone: End: 07-24-2023 Radiologic exam chest 2 views XR CHEST 2V FRONTAL/LAT Radiology Routine Bilateral hand swelling 1 Occurrences starting 06/24/2022 until 07/24/2023 [facility] Work Phone: Comment on above: 1 Occurrences starti ng 06/24/2022 until 07/24/2023 Radiologic exam ches t 2 views XR CHEST 2V FRONTAL/LAT Radiology Routine Bilateral hand swelling 06/24/2022 3:26 PM EDT [facility] Work Phone: [facility] Immunizations Immunization Date Immunization Notes Care Provider Foreign sampson 12-20-2018 influenza virus vaccine, unspecified formulation John Liz MD Work Phone: [facility] 12-18-2018 influenza virus vaccine, live, attenuated, for intranasal use Gerald Pham [facility] [place] Payers Date Payer Category Payer Worker's Compensation [id number] 2022 Worker's Compensation [id number] 2021 Medicaid MEDICAID [facility] MEDICAID [id number] 2021-Present [phone] [address] [place] [address] Medicaid [id number] 1959 Medicaid [id number] 1959 Medicare [id number] 1955 Unknown [id number] 3 1955 Unknown [id number] 3 1955 Unknown [id number] 3 1955 Unknown [id number] 3 1955 Unknown [id number] 7 1955 Unknown [id number] 7 1955 Unknown [id number] 7 1955 Unknown [id number] 7 1955 Unknown [id number] 7 1955 Unknown [id number] 7 Social History Date Type Detail Facility Start: 02-15-2021 Tobacco smoking status Heavy t obacco smoker (finding) [facility] Start: 06-23-2022 End: 06-24-2022 Sex Assigned At Female [facility] Tobacco smoking stat [facility] Tobacco smoking consumption unknown [facility] Work Phone: Start: 1955 Sex Assigned At Female [facility] Start: 06-23-2022 End: 06-24-2022 History of Social function [place] [facility] Screening Assessment 2 [facility] Start: 06-23-2022 Gender identity Identifies as female gender (finding) [facility] Start: 06-23-2022 Sexual orientation Heterosexual (criselda rascon) [facility] Functional Status Date Assessment Result Facility 02-21-2023 Functional Status N/A [facility] 01-20-2023 Functional Status N/A [facility] 05-09-2022 Functional Status N/A [facility] 03-20-2022 Functional Status N/A [facility] 01-23-2022 Functional Status N/A [facility] 11-20-2021 Functional Status N/A [facility] 11-15-2021 Functional Status N/A [facility] Clinical Notes 03-20-2022 to 03-10-2023 Note Date & Type Note Facility 03-10-2023 Note HNO ID: [id number] Author: YANNA MILLER MD Service: ? Author [...] on the intergluteal cleft, buttocks, dorsal hands Uncertain macerated plaques on the abdominal pannus A/P: [...] direct input. Yanna Miller MD Dermatology Staff [facility] 02-21-2023 Evaluation + Plan note Extrac joshua from: Title:Pain Managment Follow up Author:Nyasia iMller Date:02/21/23 Impression and Plan Patient is a 67-year-old female with a past medical history significant for a [facility] claim. The approved diagnosis codes are [...] injections. She is going to continue on Nebo given to her by her PCP. She is going to start Lyrica 50 mg twice daily. Potential side effects were discussed. How to use the medication was discussed. OARRS was reviewed. COLLETTE score: 46%. Follow-up in 1 month. Future Appointments Appointment Date:03/28/2023 02:15:00 PM Scheduled Provider:Nyasia Helton PA-C Location:.[facility] Appointment Type:Pain Management - Workmans Comp Follow U [facility]12-06-2023 NoteHNO ID: [id number] Author: John Liz MD Service: ? Author [...] showing osteoarthritis. Dr Lala her PCP from [facility] in [place] prescribed prednisone 40 mg/d x 5. Reduced [...] Future Standing Expiration Da (more content not included)...[facility] 01-22-2023 History of Present illness Narrative* John [...] showing osteoarthritis. Dr Lala her PCP from [facility] in [place] prescribed prednisone 40 mg/d x 5. Reduced [...] mo John Liz MD [facility]12-[facility]-2023 Note [id number] 12-[facility]-2022 Miscellaneous Notes* Telephone Encounter - [...] Visit Type Date Time Department FLAVIO EST [facility] 01/22/2023 1:40 PM [facility] IN[facility] CBC: CBC Latest Ref Rng [...] Instance) Lab Orders None documented in this encounterOhio [facility]09-[facility]-2023 Miscellaneous Notes* Telephone Encounter - Hallie Stallings - 11/08/2022 11:07 AM EDT Patient called in to let Dr. Miller that the triamcinolone (KENALOG) 0.025 % ointment does not work. Patient wants to know if she can be prescribed something else. ketoconazole (NIZORAL) 2 % cream is working well for the patient. documented in this encounterOhio [facility]09-21-2023 Miscellaneous Notes* Telephone Encounter - Doreen William - 11/07/2022 8:54 AM EDT Patient last seen 06/2022 RX Ketoconazole Please approve prescription and any additional refills and e-script to designated pharmacy. Thank you, Doreen William documented in this encounterOhio [facility]09-12-2023 Miscellaneous Notes* Telephone Encounter - Lucinda [...] from 21 to 16. documented in this encounterOhio [facility]08-16-2023 Miscellaneous Notes* Telephone Encounter - Karyn [...] feet and anklesare swelling Please call pt [phone] documented in this encounterOhio [facility]08-09-2023 NoteHNO ID: [id number] Author: John Liz MD Service: ? 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 Dr Lala her PCP from [facility] in [place] prescribed prednisone 40 mg/d x 5. Reduced [...] RATE WESTERGREN Rv 3 mo John Liz [facility]08-09-2023 History of Present illness Narrative* John [...] showing osteoarthritis. Dr Lala her PCP from [facility] in [place] prescribed prednisone 40 mg/d x 5. Reduced [...] mo John Liz MD documented in this encounterOhio [facility]05-11-2023 NoteHNO ID: [id number] Author: Yanna Miller MD Service: ? Author [...] Lymph 1.00 - 4.00 k/uL 4.49 (H) Pike% % 7.0 Abs Pike <0.87 k/uL 1.50 (H) Eosin% % 0.0 [...] systemic rheumatologic management sugges (more content not included)...[facility]05-11-2023 History of Present illness Narrative* Yanna Miller [...] Lymph 1.00 - 4.00 k/uL 4.49 (H) Pike% % 7.0 Abs Pike <0.87 k/uL 1.50 (H) Eosin% % 0.0 [...] arises. Yanna Miller MD documented in this encounterOhio [facility] Hospital05-10-2023 Miscellaneous Notes* Telephone Encounter - Karyn [...] mail. She said please send Rx to [facility] pharmacy in [place], [place] on [address]. She also notes that her hands are stiff and swollen again. She stopped prednisone Friday (she is out of pills) and the stiffness and swelling came back this morning. Also - she made an appointment to see Derm at [facility]. Her appointment is tomorrow 06/27. 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 John Liz MD documented in this encounterOhio [facility] Hospital05-08-2023 NoteHNO ID: [id number] Author: John Liz MD Service: ? Author [...] showing osteoarthritis. Dr Lala her PCP from [facility] in [place] prescribed prednisone 40 mg/d x 5. Reduced [...] which included preparing to see the patient, [id number] patient care, completing clinical documentation, obtaining and/or reviewing separately obtained (more content not included)...[facility]05-08-2023 History of Present illness Narrative* John Liz [...] showing osteoarthritis. Dr Lala her PCP from [facility] in [place] prescribed prednisone 40 mg/d x 5. Reduced [...] which included preparing to see the patient, [id number] patient care, completing clinical documentation, obtaining and/or reviewing separately obtained history, performing a medically appropriate examination, counseling and educating the pat ient/family/caregiver, and ordering medications, tests, or procedures. documented in this encounterOhio [facility] Hospital03-25-2023 NoteHOSPITAL REGULATIONS: All Positive and Important [...] stenosis at the L4-5 foramen. I reviewed [facility] Automated Prescription Reporting System report on her [...] total. Gerald Pham M.D. lr Dictated: 05/09/2022 [id number] Transcribed: 05/10/2022 cc:Adán Lala M.D.[facility] CenterComment on above:Result Comment: Electronically Signed By: Gerald Pham MD\.br\Date and Time Signed: 05/11/22 18:51 [id number] Note [id number]:127[facility] Evaluation + Plan note Future Appointments Appointment Date:11/20/2021 08:00:00 AM Scheduled Provider:Cezar Coe MD [facility] Appointment Type:Spine - Worker's Comp [facility] ([place] Future Appointments Appointment Date:05/09/2022 02:30:00 PM Scheduled Provider:Gerald Pham MD Location:[facility] Appointment Type:Pain Management - Follow Up ([facility] Future Appointments Appointment Date:06/26/2022 11:15:00 AM Scheduled Provider:Gerald Pham MD Location:[facility] Appointment Type:Pain Management - Workmans Comp [facility] note Future Appointments Appointment Date:02/21/2023 03:15:00 PM Scheduled Provider:Nyasia Helton PA-C Location:[facility] Appointment Type:Pain Management - Follow Up ([facility] Diagnosis Bilateral hand swelling- Primary Psoriasis Other psoriasis [facility] Diagnosis 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 Medication monitoring encounter Encounter for therapeutic drug monitoring [facility]* Diagnosis Psoriasis- Primary Other psoriasis Intertrigo Other specified erythematous condition documented [facility]* Diagnosis Seropositive rheumatoid arthritis (HCC)- Primary Rheumatoid arthritis Medication monitoring encounter Encounter for therapeutic drug monitoring documented [facility]* Diagnosis Seropositive rheumatoid arthritis (HCC)- Primary Rheumatoid arthritis Medication monitoring encounter Encounter for therapeutic drug monitoring [facility] Narrative No data available for this section [facility] No data available for this section [facility] note No data available for this section [facility] Reason for Referral Specialty Diagnoses / Procedures Referred By Contac t Referred To Contact Dermatology Diagnoses Psoriasis Procedures CONSULT TO DERMATOLOGY OFFICE/OUTPATIENT [facility] 60-74 MINUTES John Liz MD [address] [place] [address] Referral ID Status Reason Start Date Expiration Date Visits Requested Visits Authorized [id number] Authorized PCP Requested Referral 06/24/2022 06/24/2023 1 1 Specialty Diagnoses / Procedures Referred By Contac t Referred To Contact XR IMAGING Diagnoses Bilateral hand swelling Procedures XR FOOT GENERAL 3V AP/LAT/OBL BILATERAL RADEX FOOT COMPLETE MINIMUM 3 VIEWS John Liz MD [address] [place] [address] Xr Imaging Referral ID Status Reason Start Date Expiration Date V isits Requested Visits Authorized [id number] Closed Auto-Generate d Referral 06/24/2022 07/24/2023 1 1 Specialty Diagnoses / Procedures Referred By Contac t Referred To Contact XR IMAGING Diagnoses Bilateral hand swelling Procedures XR HAND/WRIST SURVEY ARTHRITIS 1V PA BILATERAL JOINT SURVEY SINGLE VIEW 2 OR MORE JOINTS John Liz MD [address] [place] [address] Xr Imaging Referral ID Status Reason Start Date Expiration Date V isits Requested Visits Authorized [id number] Closed Auto-Generate d Referral 06/24/2022 07/24/2023 1 1 Summary Purpose Family History No Family History Records Found No data available for this section No data available for this section No Family History Records FoundNo Family History Records Found Advance Directives No Advanced Directives Records FoundNo Advanced Directives Records FoundNo Advanced Directives Records Found Additional Source Comments Care Team (unrecognized sect ion and content) 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 Relationship Specialty Start Date End Date Eula Tyler [address] [place] [address] PCP - General Family Medicine 06/21/22 Eula Tyler [address] [place] [address] Referring Family Medicine 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 Specialty Start Date End Date Eula Tyler [address] [place] [address] PCP - General Family Medicine 06/21/22 Eula Tyler [address] [place] [address] Referring Family Medicine 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 Specialty Start Date End Date Eula Tyler [address] [place] [address] PCP - General Family Medicine 06/21/22 Eula Tyler [address] [place] [address] Referring Family Medicine 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 Specialty Start Date End Date Eula Tyler [address] [place] [address] PCP - General Family Medicine 06/21/22 Eula Tyler [address] [place] [address] Referring Family Medicine 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 Specialty Start Date End Date Eula Tyler [address] [place] [address] PCP - General Family Medicine 06/21/22 Eula Tyler [address] [place] [address] Referring Family Medicine 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 Specialty Start Date End Date Eula Tyler PA [address] [place] [address] PCP - General Family Medicine 06/21/22 Eula Tyler PA [address] [place] [address] Referring Family Medicine 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 Start Date End Date Eula Tyler PA [address] [place] [address] PCP - General Family Medicine 06/21/22 Eula Tyler PA [address] [place] [address] Referring Family Medicine 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 Specialty Start Date End Date Eula Tyler PA [address] [place] [address] PCP - General Family Medicine 06/21/22 Eula Tyler PA [address] [place] [address] Referring Family Medicine 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 Specialty Start Date End Date Eula Tyler PA [address] [place] [address] PCP - General Family Medicine 06/21/22 Eula Tyler PA [address] [facility] [address] [place] [address] Referring Family Medicine 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 Specialty Start Date End Date Adán Lala MD [address] [place] [address] PCP - General Family Medicine 01/17/23 Eula Tyler PA [address] [facility] [address] [place] [address] Referring Family Medicine 06/21/22 Source Comments (unrecognize d section and content) In the event this informatio n is protected by the Federal Confidentiality of Alcohol and Drug Abuse Patient Records regulations: The Federal rules restrict any use of the information to criminally investigate or prosecute any alcohol or drug abuse patient.[facility] HospitalIn the event this information is protected by the Federal Confidentiality of Alcohol and Drug Abuse Patient Records regulations: The Federal rules restrict any use of the information to criminally investigate or prosecute any alcohol or drug abuse patient.[facility] HospitalIn the event this information is protected by the Federal Confidentiality of Alcohol and Drug Abuse Patient Records regulations: The Federal rules restrict any use of the information to criminally investigate or prosecute any alcohol or drug abuse patient.[facility] HospitalIn the event this information is protected by the Federal Confidentiality of Alcohol and Drug Abuse Patient Records regulations: The Federal rules restrict any use of the information to criminally investigate or prosecute any alcohol or drug abuse patient.[facility] HospitalIn the event this information is protected by the Federal Confidentiality of Alcohol and Drug Abuse Patient Records regulations: The Federal rules restrict any use of the information to criminally investigate or prosecute any alcohol or drug abuse patient.[facility] HospitalIn the event this information is protected by the Federal Confidentiality of Alcohol and Drug Abuse Patient Records regulations: The Federal rules restrict any use of the information to criminally investigate or prosecute any alcohol or drug abuse patient.[facility] HospitalIn the event this information is protected by the Federal Confidentiality of Alcohol and Drug Abuse Patient Records regulations: The Federal rules restrict any use of the information to criminally investigate or prosecute any alcohol or drug abuse patient.[facility] HospitalIn the event this information is protected by the Federal Confidentiality of Alcohol and Drug Abuse Patient Records regulations: The Federal rules restrict any use of the information to criminally investigate or prosecute any alcohol or drug abuse patient.[facility] HospitalIn the event this information is protected by the Federal Confidentiality of Alcohol and Drug Abuse Patient Records regulations: The Federal rules restrict any use of the information to criminally investigate or prosecute any alcohol or drug abuse patient.[facility] HospitalIn the event this information is protected [...] content) DATE CREATED AUTHOR 06/27/2022 Emmy Lowery [facility] DATE CREATED AUTHOR AUTHOR'S ORGANIZ ATION 02/22/2023 [facility] DATE CREATED AUTHOR AUTHOR'S ORGANIZ ATION 03/21/2023 [facility] FOR RECORDS PERTAINING TO PATIENTS WHO ARE [...] BE BASED ON THE PRIMARY CLINICAL RECORDS. [employer] provides no warranty or guarantee of the accuracy or completeness of information in this document.
== END 2023-03-26 12:57 | disposition home or self-care (01) ==
LOC: VC 12:57
PROVIDERS: PCP Radiology Diagnostic Radiology; Visit Provider Radiology Diagnostic Radiology
DX: I83.813 Varicose veins of bilateral lower extremities with pain (principal)
CPT/HCPCS: 36466

== ENCOUNTER 2023-03-31 13:00 | Outpatient (OUT) | payer MEDICARE, MEDICAID, SELFPAY ==
--- NOTE | 2023-03-31 13:01 | VEIN_ITS ---
Patient Name: DAVION HUMPHREYS MR#: [id number] : 1955 Exam Date: 03/31/2023 Ordering Doctor: DR JAMIR SPRAGUE M.D. RADIOLOGY REPORT PROCEDURE: VC EXT VENOUS RT LMTD COMPARISON: VC EXT VENOUS RT LMTD, 03/17/2023. INDICATIONS: I80.01 Phlebitis of superficial veins of rt lower extremity TECHNIQUE: Lower extremity gardner scale and Duplex Doppler evaluation of the deep venous system from the inguinal ligament through the calf veins. FINDINGS: REGION: Right lower extremity. THROMBI: Negative for DVT. Chemically induced thrombus in multiple varicose veins in right leg. COMPRESSIBILITY: Non-compressible segments corresponding to thrombus FLOW: Areas of no flow corresponding to thrombus OTHER: Patent varicose vein mid medial right calf measures 2.0 mm. CONCLUSION: Post ablation occlusion of treated right leg incompetent varicose veins. No significant varicose veins remain on the right. Dictated by: Jamir Sprague MD on 03/31/2023 at 13:35 Approved by: Jamir Sprague MD on 03/31/2023 at 13:36
--- NOTE | 2023-03-31 13:01 | VEIN_ITS ---
Patient Name: DAVION HUMPHREYS MR#: [id number] : 1955 Exam Date: 03/31/2023 Ordering Doctor: DR JAMIR SPRAGUE M.D. RADIOLOGY REPORT PROCEDURE: [facility] EST LMTD VEIN CENTER - OFFICE VISIT FOLLOW UP COMPARISON: [facility] EST LMTD, 03/24/2023. [facility] EST LMTD, 03/17/2023. PROGRESS NOTES: The patient reports no significant problems following foam chemical ablation of incompetent right leg varicose veins. The patient has worn her compression stockings. The patient has tried exercise to the best of her ability. Physical exam demonstrates persistent bilateral moderate subcutaneous edema. Slight decrease in erythema from her initial presenting exam. Some scattered reticular and spider veins which the patient did not want treated. Review of the ultrasound performed the same day demonstrates occlusive thrombus extending throughout the treated right leg varicose veins. No residual incompetent right leg varicose veins with small left leg varicose veins measuring up to 4 mm. The patient's treatments are now complete. I asked the patient return in 12-24 months for follow-up exam, sooner if she has any new problems develop. VEIN/[facility] EST LMTD IMPRESSION: 1. Successful ablation of treated right leg incompetent varicose veins 2. No significant residual incompetent veins. PLAN: Treatment plan is complete Follow-up in 12-24 months Nurse notes, history and physical were reviewed and confirmed, see attached forms. The nurse was present throughout the physical exam and consultation Dictated by: Jamir Sprague MD on 03/31/2023 at 13:41 Approved by: Jamir Sprague MD on 03/31/2023 at 13:42
--- OUTSIDE RECORDS SUMMARY | 2023-03-31 13:23 | XMS_ITS | CCD ---
Author Name Unknown Address [address] [place] [address] Organization [facility] Care Team Providers Care Adult Probation Officer Name Role Phone Adán Lala Primary Care Physician [phone] Eula Tyler Unavailable Eula Tyler Primary Care Provider [phone] DAI ., DR MCCAIN Primary Care Unavailable [...] Unavailable HOY ., DR MCCAIN Attending Unavailable ROCKFORD, DR WADE Lozada Consulting Unavailable HOY ., DR MCCAIN Consulting Unavailable HOY ., DR MCCAIN Primary Care Unavailable HOY ., DR MCCAIN Admitting Unavailable HOY ., DR MCCAIN Attending Unavailable YESENIA, DR SOFIE Shepherd Consulting Unavailable Eula Tyler Unavailable Eula Tyler Primary Care Provider Eula Vital Unavailable Eula Vital Primary Care Provider Adán Lala MD Primary Care Provider [phone] MD Gerald Pham Admitting Unavailable Adán Lala Referring Unavailable Gerald Pham Attending Unavailable Nyasia Helton Attending Unavailable JOSE ANTONIO Helton Admitting Unavailabl e Adán Lala Referring Unavailable Nyasia Helton Attending Unavailable JOSE ANTONIO Helton Admitting Unavailabl e Hoethel, Adán Referring Unavailable Hoethel, Adán Referring Unavailable Zumbar, Gerald Admitting Unavailable Ankit, Gerald Attending Unavailable Barry Pickard Attending Unavailable Barry Pickard Referring Unavailable MD Barry Pickard Admitting Unavailable Zumbar, Gerald Admitting Unavailable Zumbar, Gerald Attending Unavailable Zumbar, Gerald Referring Unavailable TYLER, EULA J Primary Care Unavailable MODEL, JOHN Referring Unavailable TYLER, EULA J Primary Care Unavailable UNWALA, YANNA Attending Unavailable TYLER, EULA J Primary Care Unavailable MODEL, JOHN Referring Unavailable MODEL, JOHN Referring Unavailable TYLER, EULA J Primary Care Unavailable TYLER, EULA J Primary Care Unavailable TYLER, EULA J Referring Unavailable MODEL, JOHN Attending Unavailable ADÁN LALA M Primary Care Unavailable UNWALA, YANNA Attending Unavailable MODEL, JOHN Attending Unavailable ADÁN LALA M Primary Care Unavailable ADÁN LALA M Primary Care Unavailable TYLER, EULA J Primary Care Unavailable MODEL, JOHN Referring Unavailable TYLER, EULA J Primary Care Unavailable MODEL, JOHN Attending Unavailable MODEL, JOHN Referring Unavailable Allergies Allergy Classification Reported Allergen(s) Allergy Type Date of Onset Reaction(s) Facility (2 sources) Codeine; Translations: [CODEINE] Drug Allergy 06-27-2022 [facility] Repository (9 sources) Codeine Drug Allergy 06-27-2022 GI Upset [facility] Medications Current Medications Medication Drug Class(es) Dates Sig (Normalized) Sig (Original) acetaminophen 325 mg / HYDROcodone bitartrate 5 mg oral tablet (20 sources) Opioid Agonist Start: 03-03-2019 take 1 [...] mouth. folic acid 1 mg oral tablet (13 sources) Start: 2022 take 1 tablet by mouth once daily folic acid 1 mg Tab TAKE 1 TABLET BY MOUTH EVERY DAY FOR 30 DAYS Start Date: 01/20/23 Status: Ordered Comment on above: Take 1 tablet by esther th once daily. hydroxychloroquine sulfate 200 mg oral tablet (4 sources) Antimalarial, Antirheumatic Agent Start: 2022 take 1 tablet by mouth twice daily hydroxychloroquine 200 mg Tab TAKE 1 TABLET BY MOUTH TWICE A DAY Start Date: 02/21/23 Status: Ordered Comment on above: Take 1 tablet by esther th two times a day. losartan potassium 100 mg oral tablet (20 sources) Angiotensin 2 Receptor Clif Start: 2019 take 1 tablet by mouth once daily losartan 100 mg Tab TAKE 1 TABLET BY MOUTH EVERY DAY Start Date: 02/21/23 Status: Ordered Comment on above: Take 100 mg by mouth once daily. methotrexate 2.5 mg oral tablet (15 sources) Folate Analog Metabolic Inhibitor Start: 2023 take 6 tablets by mouth every week methotrexate 2.5 mg Tab TAKE 6 TABLETS BY MOUTH ONE TIME A WEEK Start Date: 02/21/23 Status: Ordered Start: 01-20-2023 take 4 tablets by mo uth every week methotrexate 2.5 mg Tab TAKE 4 TABLETS BY MOUTH ONCE WEEKLY Start Date: 01/20/23 Status: Ordered Start: 09-25-2022 End: 12-12-2022 take 6 tablets by mouth every week methotrexate 2.5 mg Tab TAKE 6 TABLETS BY MOUTH ONE TIME A WEEK Start Date: 02/21/23 Status: Ordered Start: 06-26-2022 End: 09-25-2022 take 4 tablets [...] 11/15/21 Status: [facility] oxybutynin ER (DITROPAN XL) 10 [...] nce daily. predniSONE 10 mg oral tablet (13 sources) Start: 01-20-2023 take 1 tablet by mouth once daily predniSONE 10 mg Tab TAKE 1 TABLET BY MOUTH EVERY DAY Start Date: 01/20/23 Status: Ordered Start: 12-19-2022 take 2 tablets by mo uth once daily predniSONE (DELTASONE) 5 mg tablet Take 2 tablets by mouth once daily. 180 tablet 0 12/19/2022 Active Start: 09-25-2022 take 1 tablet by esther th once daily predniSONE (DELTASONE) 5 mg tablet [...] EVERY DAY Take 2 tablets by mo ut once daily. pregabalin 50 mg oral capsule (2 sources) Start: 03-28-2023 End: 04-27-2023 take 1 capsule by mouth three times daily pregabalin 50 mg Cap 50 mg = 1 cap(s), Oral, TID, X 30 day(s), # 90 cap(s), Refills(s) 0, Pharmacy: [facility]/pharmacy #[id number], 158, cm, 03/28/23 14:35:00 EST, Height/Length Dosing, 98, kg, 03/28/23 14:35:00 EST, Weight Dosing Start Date: 03/28/23 Stop Date: 04/27/23 Status: Ordered Start: 02-21-2023 End: 03-23-2023 take 1 capsule by mouth twice daily pregabalin 50 mg Cap 50 mg = 1 cap(s), Oral, BID, X 30 day(s), # 60 cap(s), Refills(s) 0, Pharmacy: [facility]/pharmacy #[id number], 158, cm, 02/21/23 15:08:00 EST, Height/Length Dosing, 99.3, kg, 02/21/23 15:08:00 EST, Weight Dosing Start Date: 02/21/23 Stop Date: 03/23/23 Status: Ordered tiZANidine 4 mg oral tablet (18 sources) Central alpha-2 Adrenergic Agonist Start: 01-23-2022 [...] a day ketoconazole 20 mg/ml topical cream (10 sources) Azole Antifungal Start: 023 End: 023 ketoconazole (NIZORAL) 2 % cream APPLY TO AFFECTED AREA TWICE DAILY FOR SKIN FOLDS 60 g 3 11/07/2022 Active Comment on above: Apply to affected ar ea twice daily. For skin folds APPLY TO AFFECTED AR EA TWICE DAILY FOR SKIN FOLDS tapinarof (VTAMA) 1 % cream (1 source) Start: 024 tapinarof (VTAMA) 1 % cream Indications: Psoriasis Apply to affected area once daily. 60 g 4 03/10/2023 Active Comment on above: Apply to affected ar ea once daily. triamcinolone acetonide 0.72738 mg/mg topical ointment (9 sources) Corticosteroid Start: 023 triamcinolone (KENALOG) 0.025 [...] Onset: 04-30-2022 Episodic Disorders of lipid metabolism (10 sources) Hyperlipidemia; Translations: [Hyperlipidemia, unspecified] Onset: 04-30-2022 03-03-2019 Chronic Essential hypertension (10 sources) Hypertensive disorder; Translations: [Essential (primary) hypertension] [...] level monitoring] Episodic Other connective tissue disease (9 sources) Ganglion cyst of right wrist 03-03-2019 [...] Onset: 06-26-2022 Episodic Other connective tissue disease (3 sources) H/O: osteoarthritis 06-26-2022 Episodic Other inflammatory [...] Episodic Other nutritional; endocrine; and metabolic disorders (9 sources) Obesity 11-30-2020 Chronic Other nutritional; endocrine; [...] unspecified] Onset: 09-25-2022 09-25-2022 Chronic Substance-related disorders (9 sources) Smoker 11-30-2020 Chronic Past or Other [...] Test Name Value Interpretation Reference Range Facility Consent for Treatmenton Consent for Treatment [id number]#1. 00TIFF [facility] Consultation Noteon 03-28-19 Consultation Note Patient: SHELLY HUMPHREYS Age: 67 years Sex: Female : 1955 Associated Diagnoses: None Author: Nyasia Helton PA-C Subjective Chief complaint 03/28/2023 14:25 EST back pain . Patient is a 67-year-old female. She presents today for follow-up after taking Lyrica. 50 mg twice daily. This is helpful. She states that some days she feels like may be she would like to be able to take it 3 times a day but she really does not want to increase it if she does not have to Patient underwent previous a bilateral L5-S1 transforaminal epidural steroid injection. This was done on 01/20/2023 and gave her 85% relief but only for 2 weeks. At this time, she still does not want to have any more injections. She states that it is just not worth it for her. She has Four Corners given to her by her PCP. She really does feel like the Lyrica has given her improvement. She feels like things are better. She rates her discomfort a 4/10. She still would like just a little bit more relief. Health Status Allergies: Allergic Reactions (Selected) No Known Allergies, Allergies (1) Active Severity Reaction No Known Allergies None Documented Current medications: (Selected) Prescriptions Prescribed pregabalin 50 mg Cap: 50 mg = 1 cap(s), Oral, TID, X 30 day(s), # 90 cap(s), Refills(s) 0, Pharmacy: [facility]/pharmacy #[id number], 158, cm, 03/28/23 14:35:00 EST, Height/Length Dosing, 98, kg, 03/28/23 14:35:00 EST, Weight Dosing Documented Medications Documented Oxytrol [...] list: All Problems Hyperlipidemia / SNOMED CT 91548554 / Confirmed Hypertension / SNOMED CT 5061212312 / Confirmed Obesity / SNOMED CT 7757280077 / Confirmed Smoker / SNOMED CT 857885934 / Confirmed History of osteoarthritis / SNOMED CT 593476367 / Confirmed Resolved: Ganglion cyst of right wrist / SNOMED CT 751294609572949 Objective Vital Signs 03/28/2023 14:25 EST Peripheral Pulse Rate 82 bpm Respiratory Rate 16 br/min Systolic Blood Pressure 162 mmHg HI Diastolic Blood Pressure 80 mmHg Mean Arterial Pressure, Cuff 107 mmHg General: Alert and oriented, No acute distress. Overweight Eye: Normal conjunctiva. HENT: Normocephalic, Normal hearing. Cardiovascular: No edema. Musculoskeletal Normal range of motion. Normal strength. 5/5 strength Integumentary: Warm, Dry, Ranier. Neurologic: Alert, Oriented. Psychiatric: Cooperative, Appropriate mood & affect. Impression and Plan Patient is a 67-year-old female with a past medical history significant for a [facility] claim. The approved diagnosis codes are lumbosacral spinal stenosis?M48.07 And strain of unspecified muscles in the right thigh?S76.911A. At this time she is using Lyrica 50 mg twice daily. We had a long discussion with the medication. We discussed different options. We discussed increasing this to 3 times a day. Potential side effects were discussed. How to increase it was discussed. Patient would like to trial this. She will follow-up in 2 months for medication management. Call clinic sooner if necessary. OARRS reviewed COLLETTE score: 49% Normal [facility] Comment on above: Result Comment: Elec tronically Signed By: Nyasia Helton PA-C\.teresa\Date and Time Signed: 03/28/23 14:50 EST Office/Clinic Note-Physician on 03-28-2023 Office/Clinic Note-Physician [id number]#1. 00TIFF Normal [facility] Patient Correspondenceon Patient Correspondence [id number]#1. 00TIFF Normal [facility] Patient Correspondence [id number]#1. 00TIFF Normal [facility] Patient History Officeon Patient History Office [id number]#1. 00TIFF Normal [facility] CNPNon 03-17-2023 TRACYN Telephone (DELIAMARICHUY) SHELLY WILSON ([id number]) 1955 F Date Time Provider Department 03/17/23 JOHN LIZ During your visit today, we recorded the following information about you: Elena Hoyt 03/17/2023 11:42 AM Signed Pt is calling and states that her knuckles and wrist have been swollen for the last two weeks. She has no branch office administrator strength and she doesn't see Dr. Liz [...] to make a fist but unable to branch office administrator things. Denies any joint redness or excessive warmth to skin. Takes OTC Tylenol regular strength 2 tabs once a day for pain which helps a little. Pharmacy verified [facility] [place] on [address] in the vent a script is sent in. John Liz MD 03/18/2023 12:36 PM Signed She can restart prednisone 10 mg/d We will discuss biologics at her next visit She can think about Humira start oJhn Liz MD Orders Placed This Encounter predniSONE [...] Encounter Status:Closed by ELENA HOYT on 03/19/23 [facility] Wilian 03-11-2023 CNPN Telephone (DERMMN) SHELLY WILSON ([id number]) 1955 F Date Time Provider Department 03/11/23 MEGAN ARANGO DERMMN During your visit today, we recorded the following information about you: Allergies As of Date: 03/11/2023 Noted Allergy Reaction CODEINE 06/27/2022 8 - GI Upset Date Reviewed: 03/10/2023 Reviewed by: aMriah Rebolledo, ROSE - Fully Assessed Prescriptions as of 03/28/2023 - predniSONE (DELTASONE) 10 mg tablet Take [...] pain. prn Problem List As Of Date: 03/11/2023 (None) Encounter Status:Closed by MEGAN ARANGO on 03/28/23 [facility] CNOVon 03-10-2023 CNOV Office Visit (DERMMN ) SHELLY WILSON ([id number]) 1955 F Date Time Provider Department 03/10/23 [...] on the intergluteal cleft, buttocks, dorsal hands Ranier macerated plaques on the abdominal pannus A/P: [...] that Plaquenil may worsen psoriasis In reserve: Otezluis alberto, discussed risks including GI upset, weight loss, depression (denies history of psychiatric disease/suicide attempt) 2. Intertrigo, improved - associated with obesity - continue ketoconazole 2% to the skin folds BID and keep area clean and dry avoid chafing with use of OTC miconazole powder. Risks/benefits/alterna tives to all procedures and treatments were discussed RTC 2-3 months or sooner if something concerning arises. Resident: Megan Arango MD Dermatology, PGY- 2 I was [...] direct input. Yanna Miller MD Dermatology Staff Megan Arango MD 03/10/2023 11:54 AM Addendum Psoriasis [...] mouth once (more content not included)... Normal [facility] Wilian 03-10-2023 DAWSON Telephone (DERMMN) SHELLY WILSON ([id number]) 1955 F Date Time Provider Department 03/10/23 YANNA MILLER During your visit today, we recorded the following information about you: Dylan Blancrey 03/10/2023 2:14 PM Signed I have sent PA form to [facility] for patients VTAMA. Sent electronically through [employer] used L40.9 Sims: [id number] Dylan Blancrey 03/10/2023 4:27 PM Signed Received DENIAL from [...] appropriate due to the risk of irritation RU Hallie Stallings 03/11/2023 10:59 AM Signed Patient called to see why her Vtama was not sent to the pharmacy. Advised patient, it needed a prior authorization and we are working on the appeal right now. Hallie Stallings 03/11/2023 1:46 PM Signed Faxed appeal with letter of necessity to [facility] @ [phone] Dylan cruzrey 03/13/2023 8:46 AM Signed Received APPROVAL for patient's VTAMA Document uploaded to chart. Dates reflect: 03/10/2023 until further notice Informing patient of approval through [employer]. Allergies As of Date: 03/10/2023 Noted Allergy [...] Status:Closed by HALLIE STALLINGS on 03/11/23 Normal [facility] Consent for Treatmenton Consent for Treatment [id number]#1. 00TIFF Normal [facility] Consultation Noteon 02-21-19 Consultation Note Patient: [...] that she rates a 4/10. She has Four Corners given to her by her PCP. She [...] day(s), # 60 cap(s), Refills(s) 0, Pharmacy: [facility]/pharmacy #[id number], 158, cm, 02/21/23 15:08:00 EST, Height/Length [...] list: All Problems Hyperlipidemia / SNOMED CT 48513823 / Confirmed Hypertension / SNOMED CT 9275430823 / Confirmed Obesity / SNOMED CT 5767504141 / Confirmed Smoker / SNOMED CT 083886211 / Confirmed History of osteoarthritis / SNOMED CT 837217251 / Confirmed Resolved: Ganglion cyst of right wrist / SNOMED CT 027331968129963 Objective Measurements from flowsheet : Measurements 02/21/2023 [...] 5/5 lower extremity strength Integumentary: Warm, Dry, Ranier. Injection site well-healed Neurologic: Alert, Oriented. Psychiatric: Cooperative, Appropriate mood & affect. Impression and Plan Patient is a 67-year-old female with a past medical history significant for a [facility] claim. The approved diagnosis codes are lumbosacral [...] injections. She is going to continue on Four Corners given to her by her PCP. She is going to start Lyrica 50 mg twice daily. Potential side effects were discussed. How to use the medication was discussed. OARRS was reviewed. COLLETTE score: 46%. Follow-up in 1 month. [facility] Comment on above: Result Comment: Elec tronically Signed By: Sunitha BRADY, Nyasia\.br\Date and Time Signed: 02/21/23 15:28 EST Legal Correspondence Officeo n 02-21-2023 Legal Correspondence Office [id number]#1.0 0TIFF [facility] Office/Clinic Note-Physician on 02-21-2023 Office/Clinic Note-Physician [id number]#1.0 0TIFF [facility] Patient Correspondenceon Patient Correspondence [id number]#1.0 0TIFF [facility] Patient Correspondence [id number]#1.0 0TIFF [facility] Patient Correspondence [id number]#1.0 0TIFF [facility] Patient Correspondence [id number]#1.0 0TIFF Normal [facility] Patient History Officeon Patient History Office [id number]#1.0 0TIFF Normal [facility] Operative Reporton 3 Operative Report [...] Correction: Diagnosis: spinal stenosis, lumbosacral region Normal [facility] Comment on above: Result Comment: Elec tronically Signed By: Neeraj HUDSON, Barry Medina\.br\Date and Time Signed: 01/28/23 12:16 EST CNOVon 01-22-2023 CNOV Office Visit (DARNELL ) SHELLY WILSON ([id number]) 1955 F Date Time Provider Department 01/22/23 [...] showing osteoarthritis. Dr Lala her PCP from [facility] in [place] prescribed prednisone 40 mg/d x 5. Reduced [...] See ophthalmology (more content not included)... Normal [facility] Consent for Procedure/Surger yon 01-20-2023 Consent for Procedure/Surgery [id number]#1. 00TIFF [facility] Consent for Treatmenton Consent for Treatment [id number]#1.0 0TIFF [facility] Discharge Instructionson Discharge Instructions [id number]#1. 00TIFF Normal [facility] IntraOperative Documentson 1 03-23-2022 IntraOperative Documents [id number]#1. 00TIFF Normal [facility] Main OR Intraoperative Recor don 01-20-2023 Main OR Intraoperative Record IntraOp Document Type FTPM Summary Primary Physician: Barry Pickard MD Finalized Date/Time: 01/20/23 13:46:44 Pt. Name: SHELLY HUMPHREYS/Sex: 1955 Female Med Rec #: [id number] Physician: Barry Pickard MD Financial #: [id number] Pt. Type: P Room/Bed: / Admit/Disch: 01/20/23 13:21:57 - Institution: Case Times FTPM Entry 1 Patient Times In Room 01/20/23 13:40:00 Out Room 01/20/23 13:46:00 Procedure Times Start 01/20/23 13:43:00 Stop 01/20/23 13:45:00 Anesthesia Times Last Modified By: Jean-Pierre ORSE, Padmini Waters 01/20/23 13:46:05 Case Attendance FTPM Entry 1 Entry 2 Entry 3 Case Attendee Neeraj HUDSON, Barry Morejon RN, Padmini Hernandez RN, Addis Ana Role Performed Surgeon - Primary Anesthesia Resident - Primary Scrub - Primary Time In 01/20/23 13:40:00 01/20/23 13:40:00 01/20/23 13:40:00 Time Out 01/20/23 13:46:00 01/20/23 13:46:00 01/20/23 13:46:00 Procedure TRANSFORAMINAL EPIDURAL TRANSFORAMINAL EPIDURAL TRANSFORAMINAL EPIDURAL STEROID STEROID STEROID INJECTIO(Bilateral) INJECTIO(Bilateral) INJECTIO(Bilateral) Comments Last Modified By: Jean-Pierre ROSE, Padmini Morejon RN, Padmini Morejon RN, Padmini Waters 01/20/23 13:46:06 01/20/23 13:46:06 01/20/23 13:46:06 Entry 4 Case Attendee Jessy FIGUEROA(R)Shannon Role Performed Apprentice Architect Time In 01/20/23 13:40:00 Time Out 01/20/23 [...] Out Padmini Morejon RN, Given Participants Mary ROES, Neeraj Padilla MD, Joshua D, Christman RT(R)Shannon [...] and tissue Entry 1 Skin Integrity Intact, Ranier, Warm, and Skin Abnormality No Dry Outcomes [...] Safety Strap, (more content not included)... Normal [facility] Main OR Preoperative Recordo n 01-20-2023 Main OR Preoperative Record Holding Area Document Type FTPM Summary Primary Physician: Barry Pickard MD Finalized Date/Time: 01/20/23 13:38:50 Pt. Name: SHELLY HUMPHREYS/Sex: 1955 Female Med Rec #: [id number] Physician: Barry Pickard MD Financial #: [id number] Pt. Type: P Room/Bed: / Admit/Disch: 01/20/23 [...] By: Suzette Ferrer RN 01/20/23 13:38 Normal [facility] CBC W Auto Differential pane l (Bld)on 01-17-2023 Basophils (Bld) [#/Vol] 0.12 10*3/uL High <0.11 [facility] Comment on above: Order Comment: Speci men Type: BLOOD SPECIMENOrdering Facility: [facility] Address: [address] [place] [address] Performed By: #### 5 7021-8 ####[facility] LABCLIA [id number] [place] [address] Basophils/100 WBC (Bld) 0.8 % Normal [facility] Comment on above: Order Comment: Speci men Type: BLOOD SPECIMENOrdering Facility: [facility] Address: [address] [place] [address] Performed By: #### 5 7021-8 ####[facility] LABCLIA [id number] [place] [address] Differential cell count method Nom (Bld) Auto Normal [facility] Comment on above: Order Comment: Speci men Type: BLOOD SPECIMENOrdering Facility: [facility] Address: [address] [place] [address] Performed By: #### 5 7021-8 ####[facility] LABCLIA [id number] [place] [address] Eosinophils (Bld) [#/Vol] 0.17 10*3/uL Normal <0.46 [facility] Comment on above: Order Comment: Speci men Type: BLOOD SPECIMENOrdering Facility: [facility] Address: [address] [place] [address] Performed By: #### 5 7021-8 ####[facility] LABCLIA [id number] [place] [address] Eosinophils/100 WBC (Bld) 1.1 % Normal [facility] Comment on above: Order Comment: Speci men Type: BLOOD SPECIMENOrdering Facility: [facility] Address: [address] [place] [address] Performed By: #### 5 7021-8 ####[facility] LABCLIA [id number] [place] [address] Erythrocyte distribution width (RBC) [Ratio] 13.2 % Normal 11.5-15.0 [facility] Comment on above: Order Comment: Speci men Type: BLOOD SPECIMENOrdering Facility: [facility] Address: [address] [place] [address] Performed By: #### 5 7021-8 ####[facility] LABIA [id number] [place] [address] Hematocrit (Bld) [Volume fraction] 44.1 % Normal 36.0-46.0 [facility] Comment on above: Order Comment: Speci men Type: BLOOD SPECIMENOrdering Facility: [facility] Address: [address] [place] [address] Performed By: #### 5 7021-8 ####[facility] LABCLIA [id number] [place] [address] Hemoglobin (Bld) [Mass/Vol] 14.4 g/dL Normal 11.5-15.5 [facility] Comment on above: Order Comment: Speci men Type: BLOOD SPECIMENOrdering Facility: [facility] Address: [address] [place] [address] Performed By: #### 5 7021-8 ####[facility] LABCLIA [id number] [place] [address] Immature granulocytes (Bld) [#/Vol] 0.12 10*3/uL High <0.10 [facility] Comment on above: Order Comment: Speci men Type: BLOOD SPECIMENOrdering Facility: [facility] Address: [address] [place] [address] Performed By: #### 5 7021-8 ####[facility] LABCLIA [id number] [place] [address] Immature granulocytes/100 WBC (Bld) 0.8 % Normal [facility] [facility] Comment on above: Order Comment: Speci men Type: BLOOD SPECIMENOrdering Facility: [facility] Address: [address] [place] [address] Performed By: #### 5 7021-8 ####[facility] LABCLIA [id number] [place] [address] Lymphocytes (Bld) [#/Vol] 2.38 10*3/uL Normal 1.00-4.00 [facility] Comment on above: Order Comment: Speci men Type: BLOOD SPECIMENOrdering Facility: [facility] Address: [address] [place] [address] Performed By: #### 5 7021-8 ####[facility] LABCLIA [id number] [place] [address] Lymphocytes/100 WBC (Bld) 15.3 % Normal [facility] Comment on above: Order Comment: Speci men Type: BLOOD SPECIMENOrdering Facility: [facility] Address: [address] [place] [address] Performed By: #### 5 7021-8 ####[facility] LABCLIA [id number] [place] [address] MCH (RBC) [Entitic mass] 31.4 pg Normal 26.0-34.0 [facility] Comment on above: Order Comment: Speci men Type: BLOOD SPECIMENOrdering Facility: [facility] Address: [address] [place] [address] Performed By: #### 5 7021-8 ####[facility] LABCLIA [id number] [place] [address] MCHC (RBC) [Mass/Vol] 32.7 g/dL Normal 30.5-36.0 [facility] Comment on above: Order Comment: Speci men Type: BLOOD SPECIMENOrdering Facility: [facility] Address: [address] [place] [address] Performed By: #### 5 7021-8 ####[facility] LABIA [id number] [place] [address] MCV (RBC) [Entitic vol] 96.3 fL Normal 80.0-100.0 [facility] Comment on above: Order Comment: Speci men Type: BLOOD SPECIMENOrdering Facility: [facility] Address: [address] [place] [address] Performed By: #### 5 7021-8 ####[facility] LABCLIA [id number] [place] [address] Monocytes (Bld) [#/Vol] 1.19 10*3/uL High <0.87 [facility] Comment on above: Order Comment: Speci men Type: BLOOD SPECIMENOrdering Facility: [facility] Address: [address] [place] [address] Performed By: #### 5 7021-8 ####[facility] LABCLIA [id number] [place] [address] Monocytes/100 WBC (Bld) 7.7 % Normal [facility] Comment on above: Order Comment: Speci men Type: BLOOD SPECIMENOrdering Facility: [facility] Address: [address] [place] [address] Performed By: #### 5 7021-8 ####[facility] LABCLIA [id number] [place] [address] Neutrophils (Bld) [#/Vol] 11.55 10*3/uL High 1.45-7.50 [facility] Comment on above: Order Comment: Speci men Type: BLOOD SPECIMENOrdering Facility: [facility] Address: [address] [place] [address] Performed By: #### 5 7021-8 ####[facility] LABCLIA [id number] [place] [address] Neutrophils/100 WBC (Bld) 74.3 % Normal [facility] Comment on above: Order Comment: Speci men Type: BLOOD SPECIMENOrdering Facility: [facility] Address: [address] [place] [address] Performed By: #### 5 7021-8 ####[facility] LABCLIA [id number] [place] [address] Nucleated RBC (Bld) [#/Vol] 10*3/uL Normal <0.01 [facility] Comment on above: Order Comment: Speci men Type: BLOOD SPECIMENOrdering Facility: [facility] Address: [address] [place] [address] Performed By: #### 5 7021-8 ####[facility] LABIA [id number] [place] [address] Nucleated RBC/100 WBC (Bld) [Ratio] 0.0 /100 WBC Normal [facility] Comment on above: Order Comment: Speci men Type: BLOOD SPECIMENOrdering Facility: [facility] Address: [address] [place] [address] Performed By: #### 5 7021-8 ####[facility] LABCLIA [id number] [place] [address] Platelet mean volume (Bld) [Entitic vol] 8.8 fL Low 9.0-12.7 [facility] Comment on above: Order Comment: Speci men Type: BLOOD SPECIMENOrdering Facility: [facility] Address: [address] [place] [address] Performed By: #### 5 7021-8 ####[facility] LABCLIA [id number] [place] [address] Platelets (Bld) [#/Vol] 413 10*3/uL High 150-400 [facility] Comment on above: Order Comment: Speci men Type: BLOOD SPECIMENOrdering Facility: [facility] Address: [address] [place] [address] Performed By: #### 5 7021-8 ####[facility] LABCLIA [id number] [place] [address] RBC (Bld) [#/Vol] 4.58 10*6/uL Normal 3.90-5.20 [facility] Comment on above: Order Comment: Speci men Type: BLOOD SPECIMENOrdering Facility: [facility] Address: [address] [place] [address] Performed By: #### 5 7021-8 ####[facility] LABCLIA [id number] [place] [address] WBC (Bld) [#/Vol] 15.53 10*3/uL High 3.70-11.00 [facility] Comment on above: Order Comment: Speci men Type: BLOOD SPECIMENOrdering Facility: [facility] Address: [address] [place] [address] Performed By: #### 5 7021-8 ####[facility] LABCLIA [id number] [place] [address] Comprehensive metabolic 2000 panelon 01-17-2023 Albumin [Mass/Vol] 4.5 g/dL Normal 3.9-4.9 [facility] Comment on above: Order Comment: Speci men Type: BLOOD SPECIMENOrdering Facility: [facility] Address: [address] [place] [address] Performed By: #### 2 4323-8 ####[facility] LABCLIA [id number] [place] [address] ALP [Catalytic activity/Vol] 75 U/L Normal 34-123 [facility] Comment on above: Order Comment: Speci men Type: BLOOD SPECIMENOrdering Facility: [facility] Address: [address] [place] [address] Performed By: #### 2 4323-8 ####[facility] LABCLIA [id number] [place] [address] ALT [Catalytic activity/Vol] 12 U/L Normal 7-38 [facility] Comment on above: Order Comment: Speci men Type: BLOOD SPECIMENOrdering Facility: [facility] Address: [address] [place] [address] Performed By: #### 2 4323-8 ####[facility] LABCLIA [id number] [place] [address] Anion gap [Moles/Vol] 9 mmol/L Normal 9-18 [facility] Comment on above: Order Comment: Speci men Type: BLOOD SPECIMENOrdering Facility: [facility] Address: [address] [place] [address] Performed By: #### 2 4323-8 ####[facility] LABCLIA [id number] [place] [address] AST [Catalytic activity/Vol] 17 U/L Normal 13-35 [facility] Comment on above: Order Comment: Speci men Type: BLOOD SPECIMENOrdering Facility: [facility] Address: [address] [place] [address] Performed By: #### 2 4323-8 ####[facility] LABCLIA [id number] [place] [address] Bilirubin [Mass/Vol] 0.4 mg/dL Normal 0.2-1.3 [facility] Comment on above: Order Comment: Speci men Type: BLOOD SPECIMENOrdering Facility: [facility] Address: [address] [place] [address] Performed By: #### 2 4323-8 ####[facility] LABCLIA [id number] [place] [address] Calcium [Mass/Vol] 9.6 mg/dL Normal 8.5-10.2 [facility] Comment on above: Order Comment: Speci men Type: BLOOD SPECIMENOrdering Facility: [facility] Address: [address] [place] [address] Performed By: #### 2 4323-8 ####[facility] LABCLIA [id number] [place] [address] Chloride [Moles/Vol] 101 mmol/L Normal 97-105 [facility] Comment on above: Order Comment: Speci men Type: BLOOD SPECIMENOrdering Facility: [facility] Address: [address] [place] [address] Performed By: #### 2 4323-8 ####[facility] LABCLIA [id number] [place] [address] CO2 [Moles/Vol] 28 mmol/L Normal 22-30 [facility] Comment on above: Order Comment: Speci men Type: BLOOD SPECIMENOrdering Facility: [facility] Address: [address] [place] [address] Performed By: #### 2 4323-8 ####[facility] LABCLIA [id number] [place] [address] Creatinine [Mass/Vol] 0.67 mg/dL Normal 0.58-0.96 [facility] Comment on above: Order Comment: Speci men Type: BLOOD SPECIMENOrdering Facility: [facility] Address: [address] [place] [address] Performed By: #### 2 4323-8 ####[facility] LABCLIA [id number] [place] [address] Creatinine and Glomerular filtration rate.predicted panel (S/P/Bld) 96 mL/min/1.73m??? Normal >=60 [facility] Comment on above: Order Comment: Tam purvis Type: BLOOD SPECIMENOrdering Facility: [facility] Address: [address] [place] [address] Result Comment: Carmen mated Glomerular Filtration Rate [...] actual GFR. Performed By: #### 2 4323-8 ####[facility] LABCLIA [id number] [place] [address] Glucose [Mass/Vol] 104 mg/dL High 74-99 [facility] Comment on above: Order Comment: Tam purvis Type: BLOOD SPECIMENOrdering Facility: [facility] Address: [address] [place] [address] Result Comment: The [place] [employer] (ADA) provides guidance for cutoff [...] Standards of Medical Care in Diabetes 2016, [place] [employer]. Diabetes Care. 2016.39(Suppl 1). Performed By: #### 2 4323-8 ####[facility] LABCLIA [id number] [place] [address] Potassium [Moles/Vol] 4.1 mmol/L Normal 3.7-5.1 [facility] Comment on above: Order Comment: Speci men Type: BLOOD SPECIMENOrdering Facility: [facility] Address: [address] [place] [address] Performed By: #### 2 4323-8 ####[facility] LABCLIA [id number] [place] [address] Protein [Mass/Vol] 6.9 g/dL Normal 6.3-8.0 [facility] Comment on above: Order Comment: Speci men Type: BLOOD SPECIMENOrdering Facility: [facility] Address: [address] [place] [address] Performed By: #### 2 4323-8 ####[facility] LABCLIA [id number] [place] [address] Sodium [Moles/Vol] 138 mmol/L Normal 136-144 [facility] Comment on above: Order Comment: Speci men Type: BLOOD SPECIMENOrdering Facility: [facility] Address: [address] [place] [address] Performed By: #### 2 4323-8 ####[facility] LABCLIA [id number] [place] [address] Urea nitrogen [Mass/Vol] 11 mg/dL Normal 7-21 [facility] Comment on above: Order Comment: Speci men Type: BLOOD SPECIMENOrdering Facility: [facility] Address: [address] [place] [address] Performed By: #### 2 4323-8 ####[facility] LABCLIA [id number] [place] [address] ESR Westergren method (Bld) [Velocity]on 01-17-2023 ESR (Bld) [Velocity] 12 mm/h Normal 0-20 [facility] Comment on above: Order Comment: Speci men Type: BLOOD SPECIMENOrdering Facility: [facility] Address: [address] [place] [address] Performed By: #### 4 537-7 ####[facility] LABCLIA [id number] YESSENIACarol DIAS R25HPTGBOHOLJAMES VILLE [id number] [place] Patient Correspondenceon Patient Correspondence [id number]#1.0 0TIFF Normal [facility] Workers' Comp Officeon 01-02 Workers' Comp Office [id number]#5.0 0TIFF Normal [facility] CNPNon 11-08-2022 CNPN Telephone (DERMMN) SHELLY WILSON ([id number]) 1955 F Date Time Provider Department 11/08/22 [...] Fully Assessed Reason for Visit: Patient Question [0607] Prescriptions as of 11/11/2022 - ketoconazole (NIZORAL) [...] Encounter Status:Closed by HALLIE STALLINGS on 11/08/22 [facility] Wilian 10-28-2022 DAWSON Telephone (DARNELL) SHELLY WILSON ([id number]) 1955 F Date Time Provider Department 10/28/22 [...] Encounter Status:Closed by LUCINDA AGARWAL on 10/29/22 [facility] SHE[facility] WIL[facility] ([id number]) 1955 F Date Time Provider Department 10/01/22 JOHN LIZ During your visit today, we recorded the following information about you: Liana Lynn 10/01/2022 4:14 PM Signed Pt called to let dr. Liz know since she changed how she takes her medications her feet and ankles are swelling Please call pt [phone] John Liz MD 10/02/2022 10:53 AM Signed [...] Status:Closed by KARYN KOENIG on 10/02/22 Normal [facility] CBC W Auto Differential pane l (Bld)on 09-25-2022 Basophils (Bld) [#/Vol] 0.08 10*3/uL <0.11 k/uL [facility] Basophils/100 WBC (Bld) 0.4 % [facility] Differential cell count method Nom (Bld) Auto [facility] Eosinophils (Bld) [#/Vol] <0.46 k/uL [facility] Eosinophils/100 WBC (Bld) 0.1 % [facility] Erythrocyte distribution width (RBC) [Ratio] 14.6 % 11.5 - 15.0 % [facility] Hematocrit (Bld) [Volume fraction] 46.6 % High 36.0 - 46.0 % [facility] Hemoglobin (Bld) [Mass/Vol] 15.4 g/dL 11.5 - 15.5 g/dL [facility] Immature granulocytes (Bld) [#/Vol] 0.23 10*3/uL High <0.10 k/uL [facility] Immature granulocytes/100 WBC (Bld) 1.2 % [facility] Lymphocytes (Bld) [#/Vol] 1.81 10*3/uL 1.00 - 4.00 k/uL [facility] Lymphocytes/100 WBC (Bld) 9.3 % [facility] MCH (RBC) [Entitic mass] 30.8 pg 26.0 - 34.0 pg [facility] MCHC (RBC) [Mass/Vol] 33.0 g/dL 30.5 - 36.0 g/dL [facility] MCV (RBC) [Entitic vol] 93.2 fL 80.0 - 100.0 fL [facility] Monocytes (Bld) [#/Vol] 1.05 10*3/uL High <0.87 k/uL [facility] Monocytes/100 WBC (Bld) 5.4 % [facility] Neutrophils (Bld) [#/Vol] 16.19 10*3/uL High 1.45 - 7.50 k/uL [facility] Neutrophils/100 WBC (Bld) 83.6 % [facility] Nucleated RBC (Bld) [#/Vol] <0.01 k/uL [facility] Nucleated RBC/100 WBC (Bld) [Ratio] 0.0 /100 WBC [facility] Platelet mean volume (Bld) [Entitic vol] 9.4 fL 9.0 - 12.7 fL [facility] Platelets (Bld) [#/Vol] 454 10*3/uL High 150 - 400 k/uL [facility] RBC (Bld) [#/Vol] 5.00 10*6/uL 3.90 - 5.2 0 m/uL [facility] WBC (Bld) [#/Vol] 19.38 10*3/uL High 3.70 - 11 .00 k/uL [facility] Basophils (Bld) [#/Vol] 0.08 10*3/uL Normal <0.11 [facility] Comment on above: Order Comment: Speci men Type: BLOOD SPECIMENOrdering Facility: [facility] Address: [address] [place] [address] Performed By: #### 5 7021-8, 4536-7 ####[facility] LABCLIA [id number] [place] [address] [place] Basophils/100 WBC (Bld) 0.4 % Normal [facility] Comment on above: Order Comment: Speci men Type: BLOOD SPECIMENOrdering Facility: [facility] Address: [address] [place] [address] Performed By: #### 5 7021-8, 7 ####[facility] LABCLIA [id number] [place] [address] [place] Differential cell count method Nom (Bld) Auto Normal [facility] Comment on above: Order Comment: Speci men Type: BLOOD SPECIMENOrdering Facility: [facility] Address: [address] [place] [address] Performed By: #### 5 7021-8, 4536-7 ####[facility] LABCLIA [id number] [place] [address] [place] Eosinophils (Bld) [#/Vol] 10*3/uL Normal <0.46 [facility] Comment on above: Order Comment: Speci men Type: BLOOD SPECIMENOrdering Facility: [facility] Address: [address] [place] [address] Performed By: #### 5 7021-8, 4536-7 ####[facility] LABCLIA [id number] [place] [address] [place] Eosinophils/100 WBC (Bld) 0.1 % Normal [facility] Comment on above: Order Comment: Speci men Type: BLOOD SPECIMENOrdering Facility: [facility] Address: [address] [place] [address] Performed By: #### 5 7021-8, 4536-7 ####[facility] LABCLIA [id number] [place] [address] [place] Erythrocyte distribution width (RBC) [Ratio] 14.6 % Normal 11.5-15.0 [facility] Comment on above: Order Comment: Speci men Type: BLOOD SPECIMENOrdering Facility: [facility] Address: [address] [place] [address] Performed By: #### 5 7021-8, 4536-7 ####[facility] LABCLIA [id number] [place] [address] [place] Hematocrit (Bld) [Volume fraction] 46.6 % High 36.0-46.0 [facility] Comment on above: Order Comment: Speci men Type: BLOOD SPECIMENOrdering Facility: [facility] Address: [address] [place] [address] Performed By: #### 5 7021-8, 4536-7 ####[facility] LABIA [id number] [place] [address] [place] Hemoglobin (Bld) [Mass/Vol] 15.4 g/dL Normal 11.5-15.5 [facility] Comment on above: Order Comment: Speci men Type: BLOOD SPECIMENOrdering Facility: [facility] Address: [address] [place], [place] [address] Performed By: #### 5 7021-8, 4536-7 ####[facility] LABCLIA [id number] [place] [address] [place] Immature granulocytes (Bld) [#/Vol] 0.23 10*3/uL High <0.10 [facility] Comment on above: Order Comment: Speci men Type: BLOOD SPECIMENOrdering Facility: [facility] Address: [address] Performed By: #### 5 7021-8, 4536-7 ####[facility] LABCLIA [id number] [address] [place] [facility] Immature granulocytes/100 WBC (Bld) 1.2 % Normal [facility] Comment on above: Order Comment: Speci men Type: BLOOD SPECIMENOrdering Facility: [facility] Address: [address] Performed By: #### 5 7021-8, 7 ####[facility] LABCLIA [id number] [place] [address] [place] Lymphocytes (Bld) [#/Vol] 1.81 10*3/uL Normal 1.00-4.00 [facility] Comment on above: Order Comment: Speci men Type: BLOOD SPECIMENOrdering Facility: [facility] Address: [address] Performed By: #### 5 7021-8, 7 ####[facility] LABCLIA [id number] [address] [place] Lymphocytes/100 WBC (Bld) 9.3 % Normal [facility] Comment on above: Order Comment: Speci men Type: BLOOD SPECIMENOrdering Facility: [facility] Address: [address] [place], [place] [address] Performed By: #### 5 7021-8, 4536-7 ####[facility] LABIA [id number] [place] [address] [place] MCH (RBC) [Entitic mass] 30.8 pg Normal 26.0-34.0 [facility] Comment on above: Order Comment: Speci men Type: BLOOD SPECIMENOrdering Facility: [facility] Address: [address] [place], [place] [address] Performed By: #### 5 7021-8, 7 ####[facility] LABCLIA [id number] [place] [address] [place] MCHC (RBC) [Mass/Vol] 33.0 g/dL Normal 30.5-36.0 [facility] Comment on above: Order Comment: Speci men Type: BLOOD SPECIMENOrdering Facility: [facility] Address: [address] [place] [address] Performed By: #### 5 7021-8, 7 ####[facility] LABCLIA [id number] [place] [address] [place] MCV (RBC) [Entitic vol] 93.2 fL Normal 80.0-100.0 [facility] Comment on above: Order Comment: Speci men Type: BLOOD SPECIMENOrdering Facility: [facility] Address: [address] [place] [address] Performed By: #### 5 7021-8, 7 ####[facility] LABIA [id number] [place] [address] [place] Monocytes (Bld) [#/Vol] 1.05 10*3/uL High <0.87 [facility] Comment on above: Order Comment: Speci men Type: BLOOD SPECIMENOrdering Facility: [facility] Address: [address] [place] [address] Performed By: #### 5 7021-8, 7 ####[facility] LABCLIA [id number] [place] [address] [place] Monocytes/100 WBC (Bld) 5.4 % Normal [facility] Comment on above: Order Comment: Speci men Type: BLOOD SPECIMENOrdering Facility: [facility] Address: [address] [place] [address] Performed By: #### 5 7021-8, 7 ####[facility] LABCLIA [id number] [place] [address] [place] Neutrophils (Bld) [#/Vol] 16.19 10*3/uL High 1.45-7.50 [facility] Comment on above: Order Comment: Speci men Type: BLOOD SPECIMENOrdering Facility: [facility] Address: [address] [place] [address] Performed By: #### 5 7021-8, 4536-7 ####[facility] LABIA [id number] [place] [address] [place] Neutrophils/100 WBC (Bld) 83.6 % Normal [facility] Comment on above: Order Comment: Speci men Type: BLOOD SPECIMENOrdering Facility: [facility] Address: [address] [place] [address] Performed By: #### 5 7021-8, 4536-7 ####[facility] LABIA [id number] [place] [address] [place] Nucleated RBC (Bld) [#/Vol] 10*3/uL Normal <0.01 [facility] Comment on above: Order Comment: Speci men Type: BLOOD SPECIMENOrdering Facility: [facility] Address: [address] [place] [address] Performed By: #### 5 7021-8, 4536-7 ####[facility] LABIA [id number] [place] [address] [place] Nucleated RBC/100 WBC (Bld) [Ratio] 0.0 /100 WBC Normal [facility] Comment on above: Order Comment: Speci men Type: BLOOD SPECIMENOrdering Facility: [facility] Address: [address] [place], [place] [address] Performed By: #### 5 7021-8, 4536-7 ####[facility] LABIA [id number] [place] [address] [place] Platelet mean volume (Bld) [Entitic vol] 9.4 fL Normal 9.0-12.7 [facility] Comment on above: Order Comment: Speci men Type: BLOOD SPECIMENOrdering Facility: [facility] Address: [address] [place] [address] Performed By: #### 5 7021-8, 7-7 ####[facility] LABCLIA [id number] [place] [address] [place] Platelets (Bld) [#/Vol] 454 10*3/uL High 150-400 [facility] Comment on above: Order Comment: Speci men Type: BLOOD SPECIMENOrdering Facility: [facility] Address: [address] [place], [place] [address] Performed By: #### 5 7021-8, 4536-7 ####[facility] LABCLIA [id number] [place] [address] [place] RBC (Bld) [#/Vol] 5.00 10*6/uL Normal 3.90-5.20 [facility] Comment on above: Order Comment: Speci men Type: BLOOD SPECIMENOrdering Facility: [facility] Address: [address] [place], [place] [address] Performed By: #### 5 7021-8, 4536-7 ####[facility] LABCLIA [id number] [place] [address] [place] WBC (Bld) [#/Vol] 19.38 10*3/uL High 3.70-11.00 [facility] Comment on above: Order Comment: Speci men Type: BLOOD SPECIMENOrdering Facility: [facility] Address: [address] [place] [address] Performed By: #### 5 7021-8, 4536-7 ####[facility] LABCLIA [id number] [place] [id number] [place] CNOVon 09-25-2022 CNOV Office Visit ([facility] ) SHELLY WILSON ([id number]) 1955 F Date Time Provider Department 09/25/22 [...] showing osteoarthritis. Dr Lala her PCP from [facility] in [place] prescribed prednisone 40 mg/d x 5. Reduced [...] John Liz MD Referring Provider: JOHN LIZ [[id number]] Allergies As of Date: 09/25/2022 Noted Allergy Reaction CODEINE 06/27/2022 8 - GI Upset Date Reviewed: 09/25/2022 Reviewed by: Chantell Minaya (more content not included)... Normal [facility] Comprehensive metabolic 2000 panelon 09-25-2022 Albumin [Mass/Vol] 4.2 g/dL Normal 3.9-4.9 [facility] Comment on above: Order Comment: Tam purvis Type: BLOOD SPECIMENOrdering Facility: [facility] Address: [address] [place] [address] Performed By: #### 2 4323-8 ####[facility] LABCLIA [id number] [place] [address] [place] ALP [Catalytic activity/Vol] 72 U/L Normal 34-123 [facility] Comment on above: Order Comment: Tam purvis Type: BLOOD SPECIMENOrdering Facility: [facility] Address: [address] [place] [address] Performed By: #### 2 4323-8 ####[facility] LABCLIA [id number] [place] [address] [place] ALT [Catalytic activity/Vol] 28 U/L Normal 7-38 [facility] Comment on above: Order Comment: Speci men Type: BLOOD SPECIMENOrdering Facility: [facility] Address: [address] [place] [address] Performed By: #### 2 4323-8 ####[facility] LABCLIA [id number] [place] [address] [place] Anion gap [Moles/Vol] 12 mmol/L Normal 9-18 [facility] Comment on above: Order Comment: Speci men Type: BLOOD SPECIMENOrdering Facility: [facility] Address: [address] [place] [address] Performed By: #### 2 4323-8 ####[facility] LABCLIA [id number] [place] [address] [place] AST [Catalytic activity/Vol] 24 U/L Normal 13-35 [facility] Comment on above: Order Comment: Speci men Type: BLOOD SPECIMENOrdering Facility: [facility] Address: [address] [place], [place] [address] Performed By: #### 2 4323-8 ####[facility] LABCLIA [id number] [place] [address] [place] Bilirubin [Mass/Vol] 0.4 mg/dL Normal 0.2-1.3 [facility] Comment on above: Order Comment: Speci men Type: BLOOD SPECIMENOrdering Facility: [facility] Address: [address] [place], [place] [address] Performed By: #### 2 4323-8 ####[facility] LABCLIA [id number] [place] [address] [place] Calcium [Mass/Vol] 9.9 mg/dL Normal 8.5-10.2 [facility] Comment on above: Order Comment: Speci men Type: BLOOD SPECIMENOrdering Facility: [facility] Address: [address] [place] [address] Performed By: #### 2 4323-8 ####[facility] LABCLIA [id number] [place] [address] [place] Chloride [Moles/Vol] 102 mmol/L Normal 97-105 [facility] Comment on above: Order Comment: Speci men Type: BLOOD SPECIMENOrdering Facility: [facility] Address: [address] [place] [address] Performed By: #### 2 4323-8 ####[facility] LABCLIA [id number] [place] [address] [place] CO2 [Moles/Vol] 26 mmol/L Normal 22-30 [facility] Comment on above: Order Comment: Speci men Type: BLOOD SPECIMENOrdering Facility: [facility] Address: [address] [place] [address] Performed By: #### 2 4323-8 ####[facility] LABCLIA [id number] [place] [address] [place] Creatinine [Mass/Vol] 0.62 mg/dL Normal 0.58-0.96 [facility] Comment on above: Order Comment: Speci men Type: BLOOD SPECIMENOrdering Facility: [facility] Address: [address] [place] [address] Performed By: #### 2 4323-8 ####[facility] LABCLIA [id number] [address] [place] ESTIMATED GLOMERULAR FILTRATION RATE 98 mL/min/1.73m??? Normal >=60 [facility] Comment on above: Order Comment: Speci men Type: BLOOD SPECIMENOrdering Facility: [facility] Address: [address] [place] [address] Result Comment: Carmen mated Glomerular Filtration Rate [...] actual GFR. Performed By: #### 2 4323-8 ####[facility] LABCLIA [id number] [place] [address] [place] Glucose [Mass/Vol] 101 mg/dL High 74-99 [facility] Comment on above: Order Comment: Speci men Type: BLOOD SPECIMENOrdering Facility: [facility] Address: [address] [id number] Result Comment: The [place] [employer] (ADA) provides guidance for cutoff [...] Standards of Medical Care in Diabetes 2016, [place] [employer]. Diabetes Care. 2016.39(Suppl 1). Performed By: #### 2 4323-8 ####[facility] LABCLIA [id number] [place] [id number] [place] Potassium [Moles/Vol] 4.6 mmol/L Normal 3.7-5.1 [facility] Comment on above: Order Comment: Specsho purvis Type: BLOOD SPECIMENOrdering Facility: [facility] Address: [address] [place] [address] Performed By: #### 2 4323-8 ####[facility] LABCLIA [id number] [address] [address] [place] Protein [Mass/Vol] 6.8 g/dL Normal 6.3-8.0 [facility] Comment on above: Order Comment: Speci men Type: BLOOD SPECIMENOrdering Facility: [facility] Address: [address] [place] [address] Performed By: #### 2 4323-8 ####[facility] LABIA [id number] [place] [address] [place] Sodium [Moles/Vol] 140 mmol/L Normal 136-144 [facility] Comment on above: Order Comment: Speci men Type: BLOOD SPECIMENOrdering Facility: [facility] Address: [address] [place] [address] Performed By: #### 2 4323-8 ####[facility] LAB[facility] [id number] [address] [place] Urea nitrogen [Mass/Vol] 15 mg/dL Normal 7-21 [facility] Comment on above: Order Comment: Speci men Type: BLOOD SPECIMENOrdering Facility: [facility] Address: [address] [place] [address] Performed By: #### 2 4323-8 ####[facility] [id number] [place] [address] [place] ESR Westergren method (Bld) [Velocity]on 09-25-2022 ESR (Bld) [Velocity] 15 mm/h Normal 0-20 [facility] Comment on above: Order Comment: Speci men Type: BLOOD SPECIMENOrdering Facility: [facility] Address: [address] [place] [address] Performed By: #### 5 7021-8, 4537-7 ####[facility] [id number] [place] [address] [place] CBC W Auto Differential pane l (Bld)on 08-06-2022 Basophils (Bld) [#/Vol] 0.11 10*3/uL High <0.11 [facility] Comment on above: Order Comment: Speci men Type: BLOOD SPECIMENOrdering Facility: [facility] Address: [address] [place] [address] Performed By: #### 5 7021-8 ####[facility] LABCLIA [id number] [place] [address] Basophils/100 WBC (Bld) 0.6 % Normal [facility] Comment on above: Order Comment: Speci men Type: BLOOD SPECIMENOrdering Facility: [facility] Address: [address] [place] [address] Performed By: #### 5 7021-8 ####[facility] LABCLIA [id number] [place] [address] Differential cell count method Nom (Bld) Auto Normal [facility] Comment on above: Order Comment: Speci men Type: BLOOD SPECIMENOrdering Facility: [facility] Address: [address] [place] [address] Performed By: #### 5 7021-8 ####[facility] LABCLIA [id number] [place] [address] Eosinophils (Bld) [#/Vol] 0.09 10*3/uL Normal <0.46 [facility] Comment on above: Order Comment: Speci men Type: BLOOD SPECIMENOrdering Facility: [facility] Address: [address] [place] [address] Performed By: #### 5 7021-8 ####[facility] LABCLIA [id number] [place] [address] Eosinophils/100 WBC (Bld) 0.5 % Normal [facility] Comment on above: Order Comment: Speci men Type: BLOOD SPECIMENOrdering Facility: [facility] Address: [address] [place] [address] Performed By: #### 5 7021-8 ####[facility] LABCLIA [id number] [place] [address] Erythrocyte distribution width (RBC) [Ratio] 13.5 % Normal 11.5-15.0 [facility] Comment on above: Order Comment: Speci men Type: BLOOD SPECIMENOrdering Facility: [facility] Address: [address] [place] [place] [address] Performed By: #### 5 7021-8 ####[facility] LABCLIA [id number] [place] [address] Hematocrit (Bld) [Volume fraction] 43.1 % Normal 36.0-46.0 [facility] Comment on above: Order Comment: Speci men Type: BLOOD SPECIMENOrdering Facility: [facility] Address: [address] [place] [place] [address] Performed By: #### 5 7021-8 ####[facility] LABCLIA [id number] [place] [address] Hemoglobin (Bld) [Mass/Vol] 14.2 g/dL Normal 11.5-15.5 [facility] Comment on above: Order Comment: Speci men Type: BLOOD SPECIMENOrdering Facility: [facility] Address: [address] [place] [address] Performed By: #### 5 7021-8 ####[facility] LABCLIA [id number] [place] [address] Immature granulocytes (Bld) [#/Vol] 0.20 10*3/uL High <0.10 [facility] Comment on above: Order Comment: Speci men Type: BLOOD SPECIMENOrdering Facility: [facility] Address: [address] [place] [place] [address] Performed By: #### 5 7021-8 ####[facility] LABCLIA [id number] [place] [address] Immature granulocytes/100 WBC (Bld) 1.1 % Normal [facility] Comment on above: Order Comment: Speci men Type: BLOOD SPECIMENOrdering Facility: [facility] Address: [address] [place] [address] Performed By: #### 5 7021-8 ####[facility] LABCLIA [id number] [place] [address] Lymphocytes (Bld) [#/Vol] 2.21 10*3/uL Normal 1.00-4.00 [facility] Comment on above: Order Comment: Speci men Type: BLOOD SPECIMENOrdering Facility: [facility] Address: [address] [place] [address] Performed By: #### 5 7021-8 ####[facility] LABCLIA [id number] [place] [address] Lymphocytes/100 WBC (Bld) 12.5 % Normal [facility] Comment on above: Order Comment: Speci men Type: BLOOD SPECIMENOrdering Facility: [facility] Address: [address] [place] [address] Performed By: #### 5 7021-8 ####[facility] LABCLIA [id number] [place] [address] MCH (RBC) [Entitic mass] 29.7 pg Normal 26.0-34.0 [facility] Comment on above: Order Comment: Speci men Type: BLOOD SPECIMENOrdering Facility: [facility] Address: [address] [place] [address] Performed By: #### 5 7021-8 ####[facility] LABCLIA [id number] [place] [address] MCHC (RBC) [Mass/Vol] 32.9 g/dL Normal 30.5-36.0 [facility] Comment on above: Order Comment: Speci men Type: BLOOD SPECIMENOrdering Facility: [facility] Address: [address] [place] [address] Performed By: #### 5 7021-8 ####[facility] LABCLIA [id number] [place] [address] MCV (RBC) [Entitic vol] 90.2 fL Normal 80.0-100.0 [facility] Comment on above: Order Comment: Speci men Type: BLOOD SPECIMENOrdering Facility: [facility] Address: [address] [place] [address] Performed By: #### 5 7021-8 ####[facility] LABCLIA [id number] [place] [address] Monocytes (Bld) [#/Vol] 1.36 10*3/uL High <0.87 [facility] Comment on above: Order Comment: Speci men Type: BLOOD SPECIMENOrdering Facility: [facility] Address: [address] [place] [place] [address] Performed By: #### 5 7021-8 ####[facility] LABCLIA [id number] [place] [address] Monocytes/100 WBC (Bld) 7.7 % Normal [facility] Comment on above: Order Comment: Speci men Type: BLOOD SPECIMENOrdering Facility: [facility] Address: [address] [place] [place] [address] Performed By: #### 5 7021-8 ####[facility] LABCLIA [id number] [place] [address] Neutrophils (Bld) [#/Vol] 13.72 10*3/uL High 1.45-7.50 [facility] Comment on above: Order Comment: Speci men Type: BLOOD SPECIMENOrdering Facility: [facility] Address: [address] [place] [address] Performed By: #### 5 7021-8 ####[facility] LABCLIA [id number] [place] [address] Neutrophils/100 WBC (Bld) 77.6 % Normal [facility] Comment on above: Order Comment: Speci men Type: BLOOD SPECIMENOrdering Facility: [facility] Address: [address] [place] [address] Performed By: #### 5 7021-8 ####[facility] LABCLIA [id number] [place] [address] Nucleated RBC (Bld) [#/Vol] 10*3/uL Normal <0.01 [facility] Comment on above: Order Comment: Speci men Type: BLOOD SPECIMENOrdering Facility: [facility] Address: [address] [place] [address] Performed By: #### 5 7021-8 ####[facility] LABIA [id number] [place] [address] Nucleated RBC/100 WBC (Bld) [Ratio] 0.0 /100 WBC Normal [facility] Comment on above: Order Comment: Speci men Type: BLOOD SPECIMENOrdering Facility: [facility] Address: [address] [place] [address] Performed By: #### 5 7021-8 ####[facility] [id number] [place] [address] Platelet mean volume (Bld) [Entitic vol] 8.3 fL Low 9.0-12.7 [facility] Comment on above: Order Comment: Speci men Type: BLOOD SPECIMENOrdering Facility: [facility] Address: [address] [place] [address] Performed By: #### 5 7021-8 ####[facility] LABIA [id number] [place] [address] Platelets (Bld) [#/Vol] 431 10*3/uL High 150-400 [facility] Comment on above: Order Comment: Speci men Type: BLOOD SPECIMENOrdering Facility: [facility] Address: [address] [place] [address] Performed By: #### 5 7021-8 ####[facility] LABIA [id number] [place] [address] RBC (Bld) [#/Vol] 4.78 10*6/uL Normal 3.90-5.20 [facility] Comment on above: Order Comment: Speci men Type: BLOOD SPECIMENOrdering Facility: [facility] Address: [address] [place] [address] Performed By: #### 5 7021-8 ####[facility] LABCLIA [id number] [place] [address] WBC (Bld) [#/Vol] 17.69 10*3/uL High 3.70-11.00 [facility] Comment on above: Order Comment: Speci men Type: BLOOD SPECIMENOrdering Facility: [facility] Address: [address] [place] [address] Performed By: #### 5 7021-8 ####[facility] LABCLIA [id number] [place] [address] Comprehensive metabolic 2000 panelon 08-06-2022 Albumin [Mass/Vol] 4.0 g/dL Normal 3.9-4.9 [facility] Comment on above: Order Comment: Speci men Type: BLOOD SPECIMENOrdering Facility: [facility] Address: [address] [place] [address] Performed By: #### 2 4323-8 ####[facility] LABCLIA [id number] [place] [address] ALP [Catalytic activity/Vol] 68 U/L Normal 34-123 [facility] Comment on above: Order Comment: Speci men Type: BLOOD SPECIMENOrdering Facility: [facility] Address: [address] [place] [address] Performed By: #### 2 4323-8 ####[facility] LABCLIA [id number] [place] [address] ALT [Catalytic activity/Vol] 16 U/L Normal 7-38 [facility] Comment on above: Order Comment: Speci men Type: BLOOD SPECIMENOrdering Facility: [facility] Address: [address] [place] [address] Performed By: #### 2 4323-8 ####[facility] LABCLIA [id number] [place] [address] Anion gap [Moles/Vol] 7 mmol/L Low 9-18 [facility] Comment on above: Order Comment: Speci men Type: BLOOD SPECIMENOrdering Facility: [facility] Address: [address] [place] [address] Performed By: #### 2 4323-8 ####[facility] LABCLIA [id number] [place] [address] AST [Catalytic activity/Vol] 16 U/L Normal 13-35 [facility] Comment on above: Order Comment: Speci men Type: BLOOD SPECIMENOrdering Facility: [facility] Address: [address] [place] [address] Performed By: #### 2 4323-8 ####[facility] LABCLIA [id number] [place] [address] Bilirubin [Mass/Vol] 0.4 mg/dL Normal 0.2-1.3 [facility] Comment on above: Order Comment: Speci men Type: BLOOD SPECIMENOrdering Facility: [facility] Address: [address] [place] [address] Performed By: #### 2 4323-8 ####[facility] LABCLIA [id number] [place] [address] Calcium [Mass/Vol] 9.8 mg/dL Normal 8.5-10.2 [facility] Comment on above: Order Comment: Speci men Type: BLOOD SPECIMENOrdering Facility: [facility] Address: [address] [place] [address] Performed By: #### 2 4323-8 ####[facility] LABCLIA [id number] [place] [address] Chloride [Moles/Vol] 102 mmol/L Normal 97-105 [facility] Comment on above: Order Comment: Speci men Type: BLOOD SPECIMENOrdering Facility: [facility] Address: [address] [address] Performed By: #### 2 4323-8 ####[facility] LABCLIA [id number] [place] [address] CO2 [Moles/Vol] 28 mmol/L Normal 22-30 [facility] Comment on above: Order Comment: Speci men Type: BLOOD SPECIMENOrdering Facility: [facility] Address: [address] [place] [address] Performed By: #### 2 4323-8 ####[facility] LABCLIA [id number] [place] [address] Creatinine [Mass/Vol] 0.66 mg/dL Normal 0.58-0.96 [facility] Comment on above: Order Comment: Speci men Type: BLOOD SPECIMENOrdering Facility: [facility] Address: [address] [place] [address] Performed By: #### 2 4323-8 ####[facility] LABCLIA [id number] [place] [address] ESTIMATED GLOMERULAR FILTRATION RATE 97 mL/min/1.73m??? Normal >=60 [facility] Comment on above: Order Comment: Speci men Type: BLOOD SPECIMENOrdering Facility: [facility] Address: [address] [place] [address] Result Comment: Carmen mated Glomerular Filtration Rate [...] actual GFR. Performed By: #### 2 4323-8 ####[facility] LABCLIA [id number] [place] [address] Glucose [Mass/Vol] 118 mg/dL High 74-99 [facility] Comment on above: Order Comment: Speci men Type: BLOOD SPECIMENOrdering Facility: [facility] Address: [address] [address] Result Comment: The [place] [employer] (ADA) provides guidance for cutoff [...] Standards of Medical Care in Diabetes 2016, [place] [employer]. Diabetes Care. 2016.39(Suppl 1). Performed By: #### 2 4323-8 ####[facility] LABCLIA [id number] [place] [address] Potassium [Moles/Vol] 4.3 mmol/L Normal 3.7-5.1 [facility] Comment on above: Order Comment: Speci men Type: BLOOD SPECIMENOrdering Facility: [facility] Address: [address] [address] Performed By: #### 2 4323-8 ####[facility] LABCLIA [id number] [place] [address] Protein [Mass/Vol] 6.6 g/dL Normal 6.3-8.0 [facility] Comment on above: Order Comment: Speci men Type: BLOOD SPECIMENOrdering Facility: [facility] Address: [address] [address] Performed By: #### 2 4323-8 ####[facility] LABCLIA [id number] [place] [address] Sodium [Moles/Vol] 137 mmol/L Normal 136-144 [facility] Comment on above: Order Comment: Speci men Type: BLOOD SPECIMENOrdering Facility: [facility] Address: [address] [address] Performed By: #### 2 4323-8 ####[facility] LABCLIA [id number] [place] [address] Urea nitrogen [Mass/Vol] 16 mg/dL Normal 7-21 [facility] Comment on above: Order Comment: Speci men Type: BLOOD SPECIMENOrdering Facility: [facility] Address: [address] [place] [address] Performed By: #### 2 4323-8 ####[facility] LABCLIA [id number] [place] [address] ESR Westergren method (Bld) [Velocity]on 08-06-2022 ESR (Bld) [Velocity] 18 mm/h Normal 0-20 [facility] Comment on above: Order Comment: Speci men Type: BLOOD SPECIMENOrdering Facility: [facility] Address: [address] [place] [address] Performed By: #### 4 537-7 ####[facility] LABIA [id number] [place] [address] [place] HBV core Ab Ser Qlon 023 HBV core Ab Ql (S) Negative Normal Negative [facility] Comment on above: Order Comment: Speci men Type: BLOOD SPECIMENOrdering Facility: [facility] Address: [address] [place] [address] Result Comment: No e vidence of current or past infection with Hepatitis B virus. Should recent infection be suspected, repeat testing may be considered 3-4 weeks after this draw. Performed By: #### 1 6933-4, 5195-3, 58453-3 ####[facility] LABIA [id number] [place] [address] [place] HBV surface Ab Ql (S)on 07-19 HBV surface Ab Qn (S) <8.00 Low >=12.00 [facility] Comment on above: Order Comment: Speci men Type: BLOOD SPECIMENOrdering Facility: [facility] Address: [address] [place], [place] [address] Performed By: #### 1 6933-4, 5194-3, 11475-7 ####[facility] LABCLIA [id number] [address] HBV surface Ab Ser Qlon 07-19 HBV surface Ab Ql (S) Negative Abnormal Positive [facility] Comment on above: Order Comment: Speci men Type: BLOOD SPECIMENOrdering Facility: [facility] Address: [address] [place] [address] Result Comment: No e vidence of antibodies to Hepatitis B surface antigen. Performed By: #### 1 6933-4, 5194-3, 71752-0 ####[facility] LABIA [id number] [address] HBV surface Ag Ser Qlon 07-19 HBV surface Ag Ql (S) Negative Normal Negative [facility] Comment on above: Order Comment: Speci men Type: BLOOD SPECIMENOrdering Facility: [facility] Address: [address] [place] [address] Performed By: #### 1 6933-4, 3, ####[facility] LABCLIA [id number] [address] HCV Ab Ser Qlon 08-06-2022 HCV Ab Ql (S) Negative Normal Negative [facility] Comment on above: Order Comment: Speci men Type: BLOOD SPECIMENOrdering Facility: [facility] Address: [address] [place] [address] Result Comment: The result suggests no evidence of active infection with Hepatitis C virus. Should recent infection be suspected, repeat testing may be considered 4-6 weeks after this draw. Performed By: #### 1 6128-1 ####[facility] LABCLIA [id number] [address] [place] Workers' Comp Officeon 07-26 Workers' Comp Office [id number]#1. 00CD:127 Normal [facility] CNOVon 06-27-2022 CNOV Office Visit (DERMMN ) SHELLY WILSON ([id number]) 1955 F Date Time Provider Department 06/27/22 [...] via US mail. CC: rash HPI: Shelly Karis 66 year old female here for rash. [...] Lymph 1.00 - 4.00 k/uL 4.49 (H) Fergus% % 7.0 Abs Fergus <0.87 k/uL 1.50 (H) Eosin% % 0.0 [...] skin folds (more content not included)... Normal [facility] Consultation Noteon 06-28-19 Consultation Note Chief [...] after the procedure for repeat evaluation. 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 She said please send Rx to [facility] in [place], [place] on [facility]. She also notes that her hands are stiff and swollen again. She stopped prednisone Friday (she is out of pills) and the stiffness and swelling came back this morning. Also - she made an appointment to see Derm at [facility]. Her appointment is tomorrow 06/27. John Liz [...] 2 CBC + DIFF [SQCBCDIF] Order #: [id number] FUTURE COMP METABOLIC PANEL [SQCMP] Order #: [id number] FUTURE SED RATE WESTERGREN [SQWSR] Order #: [id number] FUTURE HEP REMOTE PANEL BL [SQHREMOP] Order #: [id number] FUTURE Prescriptions as of 06/26/2022 - methotrexate [...] Number: 76 (more content not included)... Normal [facility] Consent for Treatmenton 06-17 Consent for Treatment [id number]#1. 00CD:127 Normal [facility] Office/Clinic Note-Physician on 06-26-2022 Office/Clinic Note-Physician [id number]#1.0 0CD:127 Normal [facility] Patient Correspondenceon Patient Correspondence [id number]#1.0 0CD:127 [facility] Patient Correspondence [id number]#1.0 0CD:127 Normal [facility] Patient History Officeon Patient History Office [id number]#1.0 0CD:127 Normal [facility] ESR Westergren method (Bld) [Velocity]on 06-25-2022 ESR (Bld) [Velocity] 21 mm/h High 0 - 20 mm/hr [facility] CBC W Auto Differential pane l (Bld)on 06-24-2022 Basophils (Bld) [#/Vol] 0.21 10*3/uL High <0.11 [facility] Comment on above: Order Comment: Speci men Type: BLOOD SPECIMENOrdering Facility: [facility] Address: [address] [place] [address] Performed By: #### 5 7021-8, 4537-7 ####[facility] LABCLIA [id number] [place] [address] [place] Basophils/100 WBC (Bld) 1.0 % Normal [facility] Comment on above: Order Comment: Speci men Type: BLOOD SPECIMENOrdering Facility: [facility] Address: [address] [place] [address] Performed By: #### 5 7021-8, 4536-7 ####[facility] LABCLIA [id number] [place] [address] [place] Differential cell count method Nom (Bld) Manual Normal [facility] Comment on above: Order Comment: Speci men Type: BLOOD SPECIMENOrdering Facility: [facility] Address: [address] [place] [address] Performed By: #### 5 7021-8, 453-7 ####[facility] LABCLIA [id number] [place] [address] [place] Eosinophils (Bld) [#/Vol] 0.00 10*3/uL Normal <0.46 [facility] Comment on above: Order Comment: Speci men Type: BLOOD SPECIMENOrdering Facility: [facility] Address: [address] [address] Performed By: #### 5 7021-8, 4537-7 ####[facility] LABCLIA [id number] [place] [address] [place] Eosinophils/100 WBC (Bld) 0.0 % Normal [facility] Comment on above: Order Comment: Speci men Type: BLOOD SPECIMENOrdering Facility: [facility] Address: [address] [address] Performed By: #### 5 7021-8, 4536-7 ####[facility] LABCLIA [id number] [place] [address] [place] Erythrocyte distribution width (RBC) [Ratio] 12.4 % Normal 11.5-15.0 [facility] Comment on above: Order Comment: Speci men Type: BLOOD SPECIMENOrdering Facility: [facility] Address: [address] [place] [address] Performed By: #### 5 7021-8, 4536-7 ####[facility] LABIA [id number] [address] [place] Hematocrit (Bld) [Volume fraction] 42.2 % Normal 36.0-46.0 [facility] Comment on above: Order Comment: Speci men Type: BLOOD SPECIMENOrdering Facility: [facility] Address: [address] Performed By: #### 5 7021-8, 4537-7 ####[facility] LABIA [id number] [place] [address] [place] Hemoglobin (Bld) [Mass/Vol] 14.5 g/dL Normal 11.5-15.5 [facility] Comment on above: Order Comment: Speci men Type: BLOOD SPECIMENOrdering Facility: [facility] Address: [address] [place] [address] Performed By: #### 5 7021-8, 4536-7 ####[facility] LABCLIA [id number] [place] [address] [place] Lymphocytes (Bld) [#/Vol] 4.49 10*3/uL High 1.00-4.00 [facility] Comment on above: Order Comment: Speci men Type: BLOOD SPECIMENOrdering Facility: [facility] Address: [address] [place], [place] [address] Performed By: #### 5 7021-8, 7 ####[facility] LABCLIA [id number] [place] [address] [place] Lymphocytes/100 WBC (Bld) 21.0 % Normal [facility] Comment on above: Order Comment: Speci men Type: BLOOD SPECIMENOrdering Facility: [facility] Address: [address] [place], [place] [address] Performed By: #### 5 7021-8, 7 ####[facility] LABCLIA [id number] [place] [address] [place] MCH (RBC) [Entitic mass] 30.9 pg Normal 26.0-34.0 [facility] Comment on above: Order Comment: Speci men Type: BLOOD SPECIMENOrdering Facility: [facility] Address: [address] [place], [place] [address] Performed By: #### 5 7021-8, 7 ####[facility] LABCLIA [id number] [place] [address] [place] MCHC (RBC) [Mass/Vol] 34.4 g/dL Normal 30.5-36.0 [facility] Comment on above: Order Comment: Speci men Type: BLOOD SPECIMENOrdering Facility: [facility] Address: [address] [place], [place] [address] Performed By: #### 5 7021-8, 4536-08 ####[facility] LABCLIA [id number] [place] [address] [place] MCV (RBC) [Entitic vol] 90.0 fL Normal 80.0-100.0 [facility] Comment on above: Order Comment: Speci men Type: BLOOD SPECIMENOrdering Facility: [facility] Address: [address] [place], [place] [address] Performed By: #### 5 7021-8, 4536-08 ####[facility] LABCLIA [id number] [place] [address] [place] Monocytes (Bld) [#/Vol] 1.50 10*3/uL High <0.87 [facility] Comment on above: Order Comment: Speci men Type: BLOOD SPECIMENOrdering Facility: [facility] Address: [address] [place] [address] Performed By: #### 5 7021-8, 4536-08 ####[facility] LABIA [id number] [place] [address] [place] Monocytes/100 WBC (Bld) 7.0 % Normal [facility] Comment on above: Order Comment: Speci men Type: BLOOD SPECIMENOrdering Facility: [facility] Address: [address] [place], [place] [address] Performed By: #### 5 7021-8, 4536-08 ####[facility] LABCLIA [id number] [place] [address] [place] MYELO% 1.0 % Normal [facility] Comment on above: Order Comment: Speci men Type: BLOOD SPECIMENOrdering Facility: [facility] Address: [address] [place], [place] [address] Performed By: #### 5 7021-8, 4536-08 ####[facility] LABCLIA [id number] [place] [address] [place] Neutrophils (Bld) [#/Vol] 14.95 10*3/uL High 1.45-7.50 [facility] Comment on above: Order Comment: Speci men Type: BLOOD SPECIMENOrdering Facility: [facility] Address: [address] [place], [place] [address] Performed By: #### 5 7021-8, 4536-7 ####[facility] LABCLIA [id number] [place] [address] [place] Neutrophils/100 WBC (Bld) 70.0 % Normal [facility] Comment on above: Order Comment: Speci men Type: BLOOD SPECIMENOrdering Facility: [facility] Address: [address] [place], [place] [address] Performed By: #### 5 7021-8, 4536-7 ####[facility] LABCLIA [id number] [place] [address] [place] Nucleated RBC (Bld) [#/Vol] 10*3/uL Normal <0.01 [facility] Comment on above: Order Comment: Speci men Type: BLOOD SPECIMENOrdering Facility: [facility] Address: [address] [place], [place] [address] Performed By: #### 5 7021-8, 4536-7 ####[facility] LABCLIA [id number] [place] [address] [place] Nucleated RBC/100 WBC (Bld) [Ratio] 0.0 /100 WBC Normal [facility] Comment on above: Order Comment: Speci men Type: BLOOD SPECIMENOrdering Facility: [facility] Address: [address] [place], [place] [address] Performed By: #### 5 7021-8, 4536-7 ####[facility] LABCLIA [id number] [place] [address] [place] Platelet mean volume (Bld) [Entitic vol] 8.6 fL Low 9.0-12.7 [facility] Comment on above: Order Comment: Speci men Type: BLOOD SPECIMENOrdering Facility: [facility] Address: [address] [address] Performed By: #### 5 7021-8, 4536-7 ####[facility] LABCLIA [id number] [place] [address] [place] Platelets (Bld) [#/Vol] 465 10*3/uL High 150-400 [facility] Comment on above: Order Comment: Speci men Type: BLOOD SPECIMENOrdering Facility: [facility] Address: [address] [place] [address] Performed By: #### 5 7021-8, 7 ####[facility] LABCLIA [id number] [place] [address] [place] Platelets Estimate (Bld) [#/Vol] Increased Normal [facility] Comment on above: Order Comment: Speci men Type: BLOOD SPECIMENOrdering Facility: [facility] Address: [address] [place], [place] [address] Performed By: #### 5 7021-8, 7 ####[facility] LABCLIA [id number] [place] [address] [place] Polychromasia LM Ql (Bld) Slight Normal [facility] Comment on above: Order Comment: Speci men Type: BLOOD SPECIMENOrdering Facility: [facility] Address: [address] [place], [place] [address] Performed By: #### 5 7021-8, 7 ####[facility] LABCLIA [id number] [place] [address] [place] RBC (Bld) [#/Vol] 4.69 10*6/uL Normal 3.90-5.20 [facility] Comment on above: Order Comment: Speci men Type: BLOOD SPECIMENOrdering Facility: [facility] Address: [address] [place], [place] [address] Performed By: #### 5 7021-8, 4537-7 ####[facility] LABCLIA [id number] [place] [address] [place] RED CELL MORPH Reviewed: unremarkable Normal [facility] Comment on above: Order Comment: Speci men Type: BLOOD SPECIMENOrdering Facility: [facility] Address: [address] [place], [place] [address] Performed By: #### 5 7021-8, 4536-7 ####[facility] LABCLIA [id number] [place] [address] [place] WBC (Bld) [#/Vol] 21.36 10*3/uL High 3.70-11.00 [facility] Comment on above: Order Comment: Speci men Type: BLOOD SPECIMENOrdering Facility: [facility] Address: [address] [place], [place] [address] Performed By: #### 5 7021-8, 4536-7 ####[facility] LABCLIA [id number] [place] [address] [place] WBC Left Shift Ql (Bld) Present Normal [facility] Comment on above: Order Comment: Speci men Type: BLOOD SPECIMENOrdering Facility: [facility] Address: [address] [place] [address] Performed By: #### 5 7021-8, 4536-7 ####[facility] LABCLIA [id number] [place] [address] [place] CK SerPl-cCncon 06-24-2022 CK [Catalytic activity/Vol] 37 U/L Low 42-196 [facility] Comment on above: Order Comment: Speci men Type: BLOOD SPECIMENOrdering Facility: [facility] Address: [address] [place], [place] [address] Performed By: #### 2 4323-8, 17064-3, 3084-1, 2157-6 ####[facility] LABCLIA [id number] [address] [address] [place] CNOVon 06-24-2022 CNOV Office Visit (DARNELL ) SHELLY WILSON ([id number]) 1955 F Date Time Provider Department 06/24/22 [...] showing osteoarthritis. Dr Lala her PCP from [facility] in [place] prescribed prednisone 40 mg/d x 5. Reduced [...] Rv 3 (more content not included)... Normal [facility] CRP SerPl-mCncon 06-24-2022 CRP [Mass/Vol] 0.5 mg/dL Normal <0.9 [facility] Comment on above: Order Comment: Speci men Type: BLOOD SPECIMENOrdering Facility: [facility] Address: [address] [place] [address] Performed By: #### 1 988-5, 2885-2 ####[facility] LABCLIA [id number] [place] [address] [place] Comprehensive metabolic 2000 panelon 06-24-2022 Albumin [Mass/Vol] 4.0 g/dL Normal 3.9-4.9 [facility] Comment on above: Order Comment: Speci men Type: BLOOD SPECIMENOrdering Facility: [facility] Address: [address] [place] [address] Performed By: #### 2 4323-8, 98371-0, 3084-1, 2157-6 ####[facility] LABCLIA [id number] [address] [place] ALP [Catalytic activity/Vol] 75 U/L Normal 34-123 [facility] Comment on above: Order Comment: Speci men Type: BLOOD SPECIMENOrdering Facility: [facility] Address: [address] [place] [address] Performed By: #### 2 4323-8, 03335-3, 3084-1, 6 ####[facility] LABCLIA [id number] [place] [address] [place] ALT [Catalytic activity/Vol] 21 U/L Normal 7-38 [facility] Comment on above: Order Comment: Speci men Type: BLOOD SPECIMENOrdering Facility: [facility] Address: [address] [place] [address] Performed By: #### 2 4323-8, 26562-8, 3084-1, 2156-07 ####[facility] LABCLIA [id number] [place] [address] [place] Anion gap [Moles/Vol] 13 mmol/L Normal 9-18 [facility] Comment on above: Order Comment: Speci men Type: BLOOD SPECIMENOrdering Facility: [facility] Address: [address] [place], [place] [address] Performed By: #### 2 4323-8, 93794-6, 3084-1, 2156-07 ####[facility] LABCLIA [id number] [address] [place] AST [Catalytic activity/Vol] 15 U/L Normal 13-35 [facility] Comment on above: Order Comment: Speci men Type: BLOOD SPECIMENOrdering Facility: [facility] Address: [address] [place], [place] [address] Performed By: #### 2 4323-8, 24401-5, 3084-1, 6 ####[facility] LABCLIA [id number] [place] [id number] [place] Bilirubin [Mass/Vol] 0.3 mg/dL Normal 0.2-1.3 [facility] Comment on above: Order Comment: Speci men Type: BLOOD SPECIMENOrdering Facility: [facility] Address: [address] [place], [place] [address] Performed By: #### 2 4323-8, 41430-3, 3084-1, 2156-6 ####[facility] LABCLIA [id number] [place] [address] [place] Calcium [Mass/Vol] 9.8 mg/dL Normal 8.5-10.2 [facility] Comment on above: Order Comment: Speci men Type: BLOOD SPECIMENOrdering Facility: [facility] Address: [address] [place], [place] [address] Performed By: #### 2 4323-8, 34438-3, 308-1, 2156-07 ####[facility] LABCLIA [id number] [place] [address] [place] Chloride [Moles/Vol] 100 mmol/L Normal 97-105 [facility] Comment on above: Order Comment: Speci men Type: BLOOD SPECIMENOrdering Facility: [facility] Address: [address] [place] [address] Performed By: #### 2 4323-8, 96984-3, 308-1, 2156-07 ####[facility] LABCLIA [id number] [place] [address] [place] CO2 [Moles/Vol] 25 mmol/L Normal 22-30 [facility] Comment on above: Order Comment: Speci men Type: BLOOD SPECIMENOrdering Facility: [facility] Address: [address] [place], [place] [address] Performed By: #### 2 4323-8, 83489-0, 3084-1, 2156-6 ####[facility] LABCLIA [id number] [address] [facility] Creatinine [Mass/Vol] 0.71 mg/dL Normal 0.58-0.96 [facility] Comment on above: Order Comment: Tam purvis Type: BLOOD SPECIMENOrdering Facility: [facility] Address: [address] [id number] Performed By: #### 2 4323-8, 70091-4, 3084-1, 2156-6 ####[facility] LABIA [id number] [address] OF [facility] ESTIMATED GLOMERULAR FILTRATION RATE 94 mL/min/1.73m??? Normal >=60 [facility] Comment on above: Order Comment: Tam purvis Type: BLOOD SPECIMENOrdering Facility: [facility] Address: [address] [place] [address] Result Comment: Carmen mated Glomerular Filtration Rate [...] actual GFR. Performed By: #### 2 4323-8, 10196-9, 3084-1, 2156-6 ####[facility] LABIA [id number] [place] [address] [place] Glucose [Mass/Vol] 62 mg/dL Low 74-99 [facility] Comment on above: Order Comment: Tam purvis Type: BLOOD SPECIMENOrdering Facility: [facility] Address: [address] [address] Result Comment: The [place] [employer] (ADA) provides guidance for cutoff [...] Standards of Medical Care in Diabetes 2016, [place] [employer]. Diabetes Care. 2016.39(Suppl 1). Performed By: #### 2 4323-8, 63445-8, 3084-1, 2156-6 ####[facility] LABCLIA [id number] [place] [address] [place] Potassium [Moles/Vol] 4.2 mmol/L Normal 3.7-5.1 [facility] Comment on above: Order Comment: Tam purvis Type: BLOOD SPECIMENOrdering Facility: [facility] Address: [address] [place] [address] Performed By: #### 2 4323-8, 11201-0, 3083-1, 2156-07 ####[facility] LABIA [id number] [place] [address] [place] Protein [Mass/Vol] 6.8 g/dL Normal 6.3-8.0 [facility] Comment on above: Order Comment: Tam purvis Type: BLOOD SPECIMENOrdering Facility: [facility] Address: [address] [place] [address] Performed By: #### 2 4323-8, 29675-9, 3083-, 2156-07 ####[facility] LABIA [id number] [place] [address] [place] Sodium [Moles/Vol] 138 mmol/L Normal 136-144 [facility] Comment on above: Order Comment: Tam purvis Type: BLOOD SPECIMENOrdering Facility: [facility] Address: [address] [place] [address] Performed By: #### 2 4323-8, 39063-6, 3084-1, 2156-07 ####[facility] LABCLIA [id number] [place] [address] [place] Urea nitrogen [Mass/Vol] 17 mg/dL Normal 7-21 [facility] Comment on above: Order Comment: Speci men Type: BLOOD SPECIMENOrdering Facility: [facility] Address: [address] [place] [address] Performed By: #### 2 4323-8, 92576-7, 3084-1, 2157-6 ####[facility] LABIA [id number] [place] [address] [place] Cyclic citrullinated peptide IgG Qnon 06-24-2022 CCP ANTIBODY IGG QUALITATIVE Positive Abnormal Negative [facility] Comment on above: Order Comment: Speci men Type: BLOOD SPECIMENOrdering Facility: [facility] Address: [address] [place] [address] Performed By: #### 3 3935-8, 50042-7 ####[facility] [id number] [place] [address] [place] ESR Westergren method (Bld) [Velocity]on 06-24-2022 ESR (Bld) [Velocity] 21 mm/h High 0-20 [facility] Comment on above: Order Comment: Speci men Type: BLOOD SPECIMENOrdering Facility: [facility] Address: [address] [place] [address] Performed By: #### 5 7021-8, 4537-7 ####[facility] [id number] [place] [address] [place] No Panel Informationon 06-24 [facility] Nuclear Ab IA Ql (S)on 06-24 BABATUNDE BY EIA, QUAL Negative Normal Negative [facility] Comment on above: Order Comment: Speci men Type: BLOOD SPECIMENOrdering Facility: [facility] Address: [address] [place] [address] Result Comment: The qualitative antinuclear antibody screen test performed using enzyme immunoassay including the following antigens: dsDNA, histones, SS-A, SS-B, Sm, Sm/CUSTOMER SUCCESS REPRESENTATIVE, Scl-70, Elham-1, and centromeric antigens. Performed By: #### 3 3935-8, 06309-6 ####[facility] [id number] [place] [address] [place] PROTEIN ELECTROPHORESIS SERU M (P)on 06-24-2022 Albumin [Mass/Vol] 3.51 g/dL Normal 3.43-5.41 [facility] Comment on above: Order Comment: Speci men Type: BLOOD SPECIMENOrdering Facility: [facility] Address: [address] [place] [address] Performed By: #### L [id number] ####[facility] [id number] [address] [place] Alpha 1 globulin Elph [Mass/Vol] 0.36 g/dL Normal 0.18-0.43 [facility] Comment on above: Order Comment: Speci men Type: BLOOD SPECIMENOrdering Facility: [facility] Address: [address] [address] Performed By: #### L [id number] ####[facility] [id number] [address] [place] Alpha 2 globulin Elph [Mass/Vol] 1.04 g/dL High 0.42-0.98 [facility] Comment on above: Order Comment: Speci men Type: BLOOD SPECIMENOrdering Facility: [facility] Address: [address] [address] Performed By: #### L [id number] ####[facility] LABIA [id number] [place] [address] [place] Beta globulin Elph [Mass/Vol] 0.88 g/dL Normal 0.61-1.17 [facility] Comment on above: Order Comment: Speci men Type: BLOOD SPECIMENOrdering Facility: [facility] Address: [address] [place] [address] Performed By: #### L [id number] ####[facility] LABCLIA [id number] [address] OF [facility] Gamma globulin Elph [Mass/Vol] 0.71 g/dL Normal 0.53-1.51 [facility] Comment on above: Order Comment: Speci men Type: BLOOD SPECIMENOrdering Facility: [facility] Address: [address] [place] [address] Performed By: #### L [id number] ####[facility] LABCLIA [id number] [address] [place] M-PROTEIN LOCATION Normal [facility] Comment on above: Order Comment: Speci men Type: BLOOD SPECIMENOrdering Facility: [facility] Address: [address] [place] [address] Result Comment: Not Applicable. Performed By: #### L [id number] ####[facility]IA [id number] [address] Protein Fractions [Interp] No definitive M protein is identified on protein electrophoresis. Normal No definitive M protein is identified on protein electrophoresi s. [facility] Comment on above: Order Comment: Speci men Type: BLOOD SPECIMENOrdering Facility: [facility] Address: [address] [place] [address] Performed By: #### L [id number] ####[facility]IA [id number] [address] [place] Protein.monoclonal Elph [Mass/Vol] 0.00 g/dL Normal <=0.00 [facility] Comment on above: Order Comment: Speci men Type: BLOOD SPECIMENOrdering Facility: [facility] Address: [address] [place] [address] Performed By: #### L [id number] ####[facility]IA [id number] [id number] [address] [place] SPE STAFF REVIEW Reviewed by Dr. Jacob Benitez MD [facility] Comment on above: Order Comment: Speci men Type: BLOOD SPECIMENOrdering Facility: [facility] Address: [address] [place] [address] Performed By: #### L [id number] ####[facility] LABCLIA [id number] [address] [place] Prot SerPl-mCncon 06-24-2022 Protein [Mass/Vol] 6.5 g/dL Normal 6.3-8.0 [facility] Comment on above: Order Comment: Speci men Type: BLOOD SPECIMENOrdering Facility: [facility] Address: [address] [place] [address] Performed By: #### 1 988-5, 2885-2 ####[facility] LABCLIA [id number] [address] Rheumatoid fact SerPl-aCncon 06-24-2022 Rheumatoid factor Qn [IU]/mL Normal <16 [facility] Comment on above: Order Comment: Speci men Type: BLOOD SPECIMENOrdering Facility: [facility] Address: [address] [place] [address] Performed By: #### 2 4323-8, 37565-2, 3084-1, 2156-6 ####[facility] LABCLIA [id number] [address] [place] Urate SerPl-mCncon 3 Urate [Mass/Vol] 4.4 mg/dL Normal 2.5-6.6 [facility] Comment on above: Order Comment: Speci men Type: BLOOD SPECIMENOrdering Facility: [facility] Address: [address] [place] [address] Performed By: #### 2 4323-8, 08966-7, 3084-1, 2156-6 ####[facility] LABCLIA [id number] [address] [address] [place] XR CHEST 2V [...] Exaggerated thoracic kyphosis with degenerative changes. IMPRESSION: Tentering Machine Off Bearer: RENA Transcribe Date/Time: Jun 27 2022 2:09P Dictated by : LEE HIGGINS MD This examination was interpreted and the report reviewed and electronically signed by: LEE HIGGINS MD on Jun 27 2022 2:10PM EST [id number] Normal [facility] XR FOOT 3V AP/LAT/OBL BILon 06-24-2022 [...] IMPRESSION: Degenerative arthritis. No evidence of erosions. Tentering Machine Off Bearer: [facility] Transcribe Date/Time: Jun 24 2022 3:36P Dictated by : REA MILLER MD This examination was interpreted and the report reviewed and electronically signed by: REA MILLER MD on Jun 24 2022 3:37PM EST [id number] Normal [facility] XR HAND/WRIST SURVEY 1V PA B [...] IMPRESSION: Degenerative arthritis. No evidence of erosions. Tentering Machine Off Bearer: [facility] Transcribe Date/Time: Jun 24 2022 3:34P Dictated by : REA MILLER MD This examination was interpreted and the report reviewed and electronically signed by: REA MILLER MD on Jun 24 2022 3:36PM EST [id number] Normal [facility] cCP IgG SerPl-aCncon 023 Cyclic citrullinated peptide IgG Qn 78 Units High <20 [facility] Comment on above: Order Comment: Speci men Type: BLOOD SPECIMENOrdering Facility: [facility] Address: [address] [id number] Performed By: #### 3 3935-8, 61727-3 ####[facility] LABCLIA [id number] [place] [address] [place] US VENOUS DOPPLER BENJAMIN [...] by: WADE YU Date: 2022-06-19 20:02 Normal [facility] Coding Summary.on 06-05-2022 Coding Summary. CD:[id number] Ww +PGhlYWQ+GO2YQQLwG01qe RLsgL9oD6YBCXwWXeduOGH PPOeJPmTcksYzEC5omPZzH XJu IC8+LV2hBNQtPibtcAOxk3 W3aDC9O17iyl4eKHyriJD3 TCWvBjBtaxqrf9jfaWb6WA cuNmluOyBt RJCdhI07QWC0uD43Xu34tS PkcXMmq2qirLb3SkBaDROm EQG9yAvmKHlan9QePFDjQ6 9hdAMmf9A8 FCKfaQnveQTlAbBinVY0aP 0yRDujvfumw1vhaxgnXgo0 yn20yWNiz4X1nCM6L4Bunx X4FJBtvFYa QhenrVLMhF7rruqjj5vopo kvJdUyUPSqLGe1RGq7GWFk hZnpWpZmAV13QNL1LQZulz UtQ6ArJJXw wEppTcO4r5L4Ap7XV6QDTi iuJ3AQCIOQFQfcwKZ+PC90 tt05Q4UeLayiSyq4NAPuYF Q2eZT4lD8d ALQhZNuwp8G7mOS4G5Dfdv Oszw5ks9biQQBnHSqhX33x uWVnw9S6VWZikBX9KRHvhC dvVtNvdF43 Oyc+RFQxfBskx0MyMhcmi8 dhk5neaXo6XcugYSBwfmGb wYgpLRM7j1VjCb6sZVBsyG W2oLS6dU7v ZzXsFyL7ITjvY600KeVivN CeJafrV38kI5LhaAP+PHRy Ybt2CYHvwWhbEV4wI8ZcDO RpbmctbGVm cIsnQH1vAWYkynqfHNVetN 6sFQEaU2p1NbSsRlP8GIpr P2NkSMQflwvhLs55zI1hEv MaLaK3VKke R2SqosC3KYLckINqRYiyAY R0S81dw5W7LYLpUMFlSVJ4 kPF0oD5jlGkcknpxyGBmxU sgdmVydGlj ETgjAJywV438CPIssKbrZd NvZGluZyBEYXRlOiAgMDQv MTkvMjAyMzwvdGQ+PHRkIH E3pNqyIKNi cYFoDOopRt3huRbtqPsjRJ 2fZMHzdilsZRItbL5oMBZq yGRihBstFY5eRJQvnrgzz8 34DhIpEMA8 USEboFGxA6CpgQ1gLcKpQM FoFLBgQ9AalQIyANxdD725 JFcnWqO0VXHafrRvI6AsSE FsaWduOiB0 m4G7Cb7Ny4CgehewL9ZszQ KqPyHzGlpeZGp5C6XtQsel dHI+PH73DSAaRA32ZYw8KF J2vEnfGLlp XAJwQ9TohM8rQeKnDZHsOC RkOyc+PHRhYmxlIHdpZHRo YUiaRGSnNvLlzPzrRE5pDk 9yZGVyLWNv iHknkHWyFnRit0kmFXEpUD gsCB3qiWsfY1ApoCY4ZZQv i5z1Bx89O05mQ1KnpTY+PG CxhEX6nMA3 xJ2sEbEnPtC1PTkdL673Ei NhmSUtFfrlo4eou8craCy8 SnD2HEWxmoYhgOqxQRK8e7 HqZw95G11c IHdpZHRoPSIxNSUiIHZhbG wmqb3vqH4hNs3+PGNvbCB3 uHX4pP1gWrTuZoU3PPjxC8 49InRvcCIv Cvjua9lwk1yrdOb4MyQeSI VfdxKipQyqYBL9t6UrBw67 E7HbzEyws3RzTss8vo29sG Lxk9H7jSQ2 W0QyGZNxkrncmTKxbClxMF 3tRBBsmdqfBDZexG7oPBWh J7v5ZkDiDlA2SInaL6Urmn Q4ZAKobTSd BPZzjPDGaR3fdqmno9pdmr qmCoCeAWNnDHe2DSx4DLCm xQvcJqMyOJA2DuG2JYF8tK OcxB3oyCpa middzS4eHsz+XWS3nJNowV CGCM1bWqsxrDQ+PHRkIHN0 nIodGVaiTOCdsE8cXKGvN0 m1MdDgWgV4 IBxeO5WijdL7QQXncGMgQC XofPSNiU3knxetm5rfdhge BjYmPBZvSHb9FIz8VRNvzB duOiBsZWZ0 KsZ2NDA4jKArvE0sbGozns sxmU8cRoh+QmlydGggRGF0 GSq6J4HnNir1DZXhbMowTN 0ncGFkZGlu Xe2nuNgpcMhyKG9aSRIigi vrm689IeGlp7xzJXSzfIDx CUmzLIE2R34en8T1DUZsOU OeLLG4cKX4 eH9sdXufyaxjaJNdtCtirs DjpOfcRAhoOJwsJ917ZFRb gDyrQzUgWVy1Q2LkEbw4TV IidFoeTA1h qFNyEDswDw5udRcunEcpBF 6gOMXunxqfc506AiOir3lt KZIvmQXeDBziUBO7R98gc1 U1JVTqCSZe ZOB0oJP0aQ9jlWsttfzyhI VmdDsgdmVydGljYWwtYWxp Z400FZGphObrQfXbxRh5W0 TxHtt5GCGs kTvaMG3onLTsVZdtIv4cjH zveGhuEA8vPUQpftdzz159 YpIgk2gsOITegAQrKNnrCZ J1U76gl1W5 LSEdYEHjZZO8tHC6rO0obI lnbjogbGVmdDsgdmVydGlj ENcfATkgY822VKRtpPmlKj BhdGllbnQg BPsrGWu4E9OzXkoqcVN+PC 59XFTaGC03mQZzyHDta4jt hXt7WiRbCHWiHUC3gMgbXC xre3DrHLEc F41cnXQya6F9QNUisHpvmX PbHiMdmVA4aJ2oTQzifipv p7ypoizxPfckc4bovg11wU 21S86cPZyk ZHRoPSIzMCUiIHZhbGlnbj 4tnT5wUx2+XDOedDD9qID3 oZ8jPNOiXhL1FGwgT788Xr RvcCIvPjxj n9zck1zwqEf1ZdC2SDRnpg DzuOwpBQB2b8OlUj82J68m IHdpZHRoPSIyMCUiIHZhbG nvxt5tqT5u Ii8+QSWkyWS0gEC9cM6jHg CiFrR0JXucM364WnCgzLIh GdloN84uI7VfrYZ+PHRyPj h1DSYrsRnb UJ4gpVGnJWmtXl1jZOK2Hj LoLvZbNCvzJ9NkMLVupiri onlyvPM1PLMdTVWbrE63Dz 9udDogMTBw vWOGpI6rndtfl9padsxcMq KdWIOvVMu0UOa7DVFfpFbu WoVuVET8AsV3JBF1sCMbkC 1hbGlnbjog mE1eX7AhCHIuontlWn68aR 4jZpAiIzT0UUmfIns+Qkla Y5XAGnopMr2MDn6tCXfeuY Q+PHRkIHN0 bYicNMgrQCUufA6rXWWkD1 e1BeVtBbL2GLlsE6NtIRHj ehncVp64tP4yUtUsHkP1II ifG5CflnZ9 RLPywKKoFDvrRZB6H22kk2 W6YTAtIUSvTCZ5aCZ6lC9g bGlnbjogbGVmdDsgdmVydG ljYWwtYWxp X622VAZjzRisWnU4RuWvSm W7NJC4B9YzQsz0QBRxgWee ZP3bpRDaHQmdHm0whNurjF jxWB9nFFCy gztlDGNphU0oSRPzjRRixJ niET9eFDPcbvrok500RnOs INA2SVOncBIkZ6KydQ3dCt AjMDAwMDAw S3BskHErUGrnQ795HQdsUe J1BFFmxeRfW0SpNYWxnVre DiK9m4X7Oh81PtSDCLCtbu wvdGQ+PHRk YKS8zBkmGCxwAAPjfP4cLZ SpB0n1MlRuAuQ4NRntB2Ef RNPwbzoiOv49hI5uCkTlId X7HJckC9Sy tdE7IKThmECbLWoeABG3F5 5wt6J8TBDvNDYmJWE4tYY5 oE2fnKrbeyhmoBCjhZiacb VydGljYWwt NAxaJ425PSPycBpaQiYydK FsZTwvdGQ+NIMeWEE4wHvu OYrpBIPgbR5hXOMxF8y9Od SsCsU0EYii M1MoCHRgablsEw92jJ0jTe YcReV7CRbjX0SvhjD1QUUr gQUyFFybISZ6R29nd9J1KW MwMDAwMDA7 aKP6iC3oeKdfyhcbkLOmjE rtjuPosTgpSHvzAPxdD752 JZAfwAqhIr97hYOrvJejqh G4V5KzHkps dHI+GX81QXBkAV55pONufR Zhr0tjyYr5DrJjYTTiEJU9 aEdjGVlib2UxWIGfW80buQ Cmp1J3KSNg uRicyAMmUsLuyWU8vJ1wCX nhgsnri6lzphaeJglwn6xg ss37tC36M12mYLgpRUHdTZ IzMCUiIHZh fCqrml5wtQ0zOq3+PGNvbC I8aOV3iF2jSiRpNzK3QCiz Z026AqHecDZtGbrib2jpu4 tbmUy8VvXg BECjidUxzCycBIU5w0FuCd 82Q52eYNbfVDCdMQRkJHJw YCDawCxibj8zoX5xQi2+PC 7cq1lqtl17 fV83eRA+JHTdQIW4jYxiFA dvNPGzlJ9gFUzjIqE0WSIq ImEwnW38dKUgHFyzOq3qpQ xpnAwnYH0v GIXgtjyyi451OsInm4gqRW OvvJRuIZhbLVN5G56wh3O5 UHIuCODrCOF0fYZ5mW5kgT lnbjogbGVm dDsgdmVydGljYWwtYWxpZ2 49QYMkbDepMbHbgWLcK0ol xtHBUX7mZbstgNJ+PHRkIH J5zAmlUKnl BGVoaV7zHSDlU9t4WmBcEq O7OYnwY0LdpoU3GJWzaVVe EAXnsRSWuE4sheswx2eoxp ogIzAwMDAw VDs7ZOv9OTYunQpiTmXwPE B7ThH6JVS8zDVsoO3tsGet xpmcdK1uHio+RklOOjwvdG Q+PHRkIHN0 gPqnCWwsEBNsbY8kUBLtL0 a3MgHuGfG2UGkkW6OqnbW5 VLWvdENwVYYnyYXEoD4hud kpp0tseeem GlWiKTXgJHm5KKk2ZCQncE koYuVoXJI7AkX2NSS7pBMl xZ4soEkqootceL0yWvy+TV JOOjwvdGQ+ CHJaKAM8oRfgDUojTNOmsH 5kTOKiC3a5NoRiUdM5DOnw J3DvliR3BULjcORkRGQrjN XPoW7jrxtc n1cqzfqxOpIwDPSpJGm4NP r7ZVHlvZvsKcLqDPG8JwS0 AKE1wZQwlC7dbXvlnggumP 9wOyc+UGF5 MSP8PJ39KF01B3AwHwnuaE FibGU+PHRhYmxlIHdpZHRo XFseKMMwNwYsoOajKW7uUf 9yZGVyLWNv bGxhcHNl (more content not included)... Normal [facility] MRI Spine Lumbar w/o Contras ton [...] HERMINIO Technologist: FAYE Technical Comments None Normal [facility] XR Spine Lumbosacral Minimum 4 Viewson [...] spine. Lumbar vertebral body heights are maintained. Vvjo-sw-lugxarrl intervertebral disc height loss throughout the lumbar [...] in mGy = na DAP = na [facility] Consent for Treatmenton 05-18 Consent for Treatment [id number]#1.0 0CD:127 [facility] RAD - MRI Screening Formon 0 05-30-2022 RAD - MRI Screening Form [id number]#1. 00CD:127 [facility] Physician Orderon 05-23-2022 Physician Order [id number]#1.0 0CD:127 [facility] Physician Order [id number]#1. 00CD:127 [facility] Physician Order [id number]#1. 00CD:127 [facility] Workers' Comp Officeon 05-23 Workers' Comp Office [id number] [facility] [id number]#2. 00CD:127 [facility] Coding Summary.on 05-14-2022 Coding Summary. CD:[id number] Ww +PGhlYWQ+OQ8ALEYyN15ec PBjrE2tD5XJFDoKPahdPNK ISDqYNqNbybUsXG5ryYSyG XJu IC8+SI6gKFRdXgpeuHSjg6 N1xKO2N34ild9nBEowoYU5 SVHcCqStigppc9oitDn8KY cuNmluOyBt JSCeiI33NWP6dQ55Np78iM EsuCJsz5fnnGy1YqZjSKDk ZAY1mYkzFSwxr4EkGJPpU5 4qwAKkl5I1 LVJjpIkvcCGiJwLrfWK3tI 0nTTcoilvfr3wpjuihKic0 zu46rRWdj5M4gMY4W8Xjmi U5BUZhoXGk JkgphCHLpU3vunbct3auue ghWkRnTSGoSQz3PGg2BHIp yJumEhJgDC06XHY5DWUbok LgG8OvHDSw sMtaSnD7w8B3Dw7MU8UZCd fbA8QVYTAIRBwlxIA+PC90 ra46R2BnSrudNsw0ZPKxKN M6zRR3uH3p DBHqWMxwa4O6yRB9A5Sjjb Sabg6eh8duMAQlYOxaM67s qWDhz9Z6JKKifCB3SFCshK pbScHxpO48 Oyc+UZQbgPltu3YvVchww0 fsn5dvuTn9YnxjQMQrsuFs jOfgFWR9c8LpXa5wSXCvkY E7vXR9hH3r DyKiCjG6TYxqE246DuUzsM JtUjuuB97sK3YktQD+PHRy Naf4EUHkyCfjBI3pW8VsRR RpbmctbGVm nRfiMD1dIXTwgeagILNxkI 7pMWRbS1y1LbXwPiT0JIhp P3DsXLRhnjkiHa67fS7dJf AlDoV0EYfd Y4TpgkY0ZZBcnUTaBHqdFD K7K28vy9C1YLAfLURbLYU6 iAJ2bP3kbFmqmednlNOyhY sgdmVydGlj HSrqMYevA690SCZoyCblPn NvZGluZyBEYXRlOiAgMDMv MjgvMjAyMzwvdGQ+PHRkIH K3gAdfDHHr iMTgXSvuRg0tpSvbnCmtBD 9zWFExnsihFYGwhS2dGPGf kOEixTwfMQ5qQXHbjrqxe1 91XkCuHQH4 BONeqQWwG1NejW5nEgPgKQ OyITFdT4JqhGHwYMekF500 POslAlT0ZCHeusJqR9UqHF FsaWduOiB0 r9Y2Ek5Vg0YmotizB9ZviV XmKjFlBtbnQEa4C3UbFylr dHI+FZ78ACInNT05ILc3HJ S2zPvqOXad JNMfB8EmkA6kSxHsKOXySL RkOyc+PHRhYmxlIHdpZHRo KPwhXNIeYcXwkCcmLK3jOp 9yZGVyLWNv hHuwlBShLkLjs4bwNJNlXC tnRM1laSwxE1AqeGZ8GTRb f9l6Yq35B49vY5ZhtIC+PG OpuPW9yAS2 hX3lYmYwOqS0XEeaZ832Ko EabDIeBjope7pvt1gnyBk4 DgX1CWWpyvCowCtsAOM6i3 RoRm91O75f IHdpZHRoPSIxNSUiIHZhbG qqru0eaR4tHn5+PGNvbCB3 hXY4bO8kNqRhFhZ9WOxhK1 49InRvcCIv Gzaof3ica5mmaZk5MnHaPJ RbqzTwmKztQPF8c8YgXe95 B8WwpEpre4HcUhm5lu28mX Jnv2B0pLE0 E0TbGFWeytrrbSAwaWplTI 2cUIQqzwiiUQVbrO4wJCZh P3b9XeNhVfZ1GLyiV0Btne T1MJYwoPNs TIXtpRZZgE0irtxsr0vxdm jxMlNlSZMaKZq2GIw5NITo lYjjNqEeLHW0KpQ1NTW0jY HbpJ3zvGue ftkufZ5mWhr+PTT1pANsmI IAGD9hUofwnHH+PHRkIHN0 oIvtFYmpALUuzT8zVKBwA4 f3YfCcMzP6 IKqqB0BzknL1THLltLVaGI EhiQQLzY5leuwux4jkjhbj LvAzXDMeNAu7HYn4PTQtmQ duOiBsZWZ0 WnR4XKM3xVUbsS3ayXagyl cueE4wYiq+QmlydGggRGF0 JMc4W3TlBdw4XCXykGwcWI 0ncGFkZGlu Jo1iwArfjIntBL9lHOPmka dhz956AcKgr7bvATDxgHOg RZnnYDS8X11so8B5DYCjTD TaXNX1yNJ1 kP4jqBschviwpEEaiCbjkn SmiQtrBYtpMLxbR230VFXh cSnzXtKcPPf5E2FeHfn7KH ZepWewWB2e uMRyHBxjUi3hhKdrcFxqWR 3xDXDoiyjkx726VvGlp7qx YBMdxSNyHAjrBPA1A75vk5 K9IBPgWEDh OVX0rUB6gZ0rdTftstbacD VmdDsgdmVydGljYWwtYWxp V446SJJtdBcvVsYoxZn5K1 PcBhp7JXTy jPhdUF8vySUnTAgdLn0ivD yexVmaEV7lHLSjhlzkn864 LgRof2kbAMFgcKIqVCflFH B8U18uu3Q8 IGFtJQTcQKF4hYP1fU2gyK lnbjogbGVmdDsgdmVydGlj THuyAGogJ478JNQsqTbcZe BhdGllbnQg KKqlVMf8B4QmMmtkaKS+PC 79LMVaTL04fRZzqUVfn1wq sBt4UiAjGITlUCT3kZxzVO pys2ZmBKDs K04rkCUef7K8QAEbdBtmfR JyUtOdqYH5yV5zPXviknub d6aoytrkNlwqf1hfxq30nY 41H37jNNlv ZHRoPSIzMCUiIHZhbGlnbj 6pnN6cWj0+CXBqlCX6dOF1 lU8dXOQtHwE5QGmeJ800Uw RvcCIvPjxj q2ohf3jwqRe3YcT5VDAmym RmxUwjPUW7b1XbSg52G85w IHdpZHRoPSIyMCUiIHZhbG rkbh6ntU0l Ii8+VGZucXK7cYO8yX9kAu QyVgS9GAwsE510SyVskVEa XmrqV64iF6IhuOL+PHRyPj c2PTBzdIbr EN5mjRIlLMuiFc3uBDS4Dz YhIpMnDPzpP0ZfQLKhcbdf fxgkkSX4UMIfRWGycK71Qg 9udDogMTBw zOHHcL2lobpgm3bwqheeBd XeAQZvXMc3DSx7KDIpcJkg XqEmHWB3NhB2ENN1hCFbsX 1hbGlnbjog hZ3oM2VpCISbjkbgTm90pZ 7gMyUmCgI3MDabPnr+Qkla Y8QDTyreRm8JFh5iYLmvsQ Q+PHRkIHN0 bLkgCUbpEEPrfN0pZZDxX5 e8MnXeSmD5GVblN5FfECVd guuhAh04iV9qGuOqYlU7UA fkA2IxbuU0 BAUjsHWwTYydMNS9E24zm8 Q3ZWGiNDGgADF9yDF1gB1o bGlnbjogbGVmdDsgdmVydG ljYWwtYWxp I893ANAuwEszZfV6OdIkSg F5GPG1R7QhKyz5ZJLzfJgr CN8ikMKyIJloKa1rwSfzvS apDG8yGNEu bhiqEHRutI5hKJAjwCRufL ecIA2eEPJdhamsq931YeQg PCQ8SAUxqJMfS6DsoY3bJo AjMDAwMDAw A7UswLKyZDnrI861ZTwdEa V2YTOohcKxJ7TjCZEntHjz NxJ9h0G6Rv95PjBZFMZtgp wvdGQ+PHRk ZVG6mDfiYPumJXQozF3dCB TvW6g2ZyYeMnX9REosB5Mm MBHsthslHq27iI7lLpRrRj L5ROhyW3Jg llN8HJFfpYNvWGbxVFH7P9 8ps9T4XZJhEQWjVKN3uJD9 pY5hhBvnmlflzJBfgGtzlc VydGljYWwt CTgkP854YLZjpWhiMmXfwQ FsZTwvdGQ+ISMcLPE1yTmt MUilPGHlaT5cOHChH8x6Ds LlQuV1UJup M3GvHLTnfvmaOt62hB9fCi GdCxA0QHerL0BoxnR6ZPNl eWCdWDepRSW0E77ii9H1GW MwMDAwMDA7 kOL5jG3skChgzuumaKEgkF hpytChkAhwTEboXEvzS713 ATLrdJrkEkJjsR9gAYFlJP dlbWVudDwv dGQ+CH73xq05R9HyRiaeJc q2SPXcFHF5aOL1cB9nFSYl HKyqi7H4kCY6Y8QvyhKvcx 0ud6rzGFNh XKqqP78mzNTir2L5UPUyaS G1POVbnVvkBcZbkC85Dxf+ ZQObgQnsh1OvPpiqq8net7 wnvMj8QlNs AOLxaaHfkMswFPW9u1CeKj 54C46tCAfyQMBdDNPeGJBk AUAovUunhe4ptQ3uGl1+PG IbgTC4gGL4 kW6zQcSaNtX4OTnsF143Sf CgkQEjVbyan9pmy8egzMn8 HqYyMJHrxhCkaOpmKSO5r3 AjJj42H5Ko sAvbx0VqBif2xs44eBBjn4 Y3oTV9P0TeUEDhzkgliIMm cIqzKE0oYAKkkkghUKTuoE 4sEDYuR2f0 LzJgEfJ0HZzcO3MxymZ5IT PmsUSeMCHdqHYTlX4eiycc g6nessbwQmKaOPFiRPx9WE r3JLWyuYbc ZnCwCPN7UnA3FQX4dTYmfI 3nrEwfeqzdcO7fSwz+UGh5 o5engHHtHJ7skTH4LO94DG 81gMBfp3G6 pPY5S2KlGRUxcmuieuedeP O5DCKoBCSolA32Vb9cxVbg Zu2gLZTkSCI0QLHfeOCqZ4 TwmJ8jUqPf XIPtIYBnY8RkjZGgNJyyI6 05RNgiQeI8RPCiujDrT4Li COMczEfbMxD4v8U8Rw5QLG 63LP46NW44 tDJsv1E9tDX8T1SkZGDndk rddvqtcBO6NDRmNBRgvK03 Xg6toEctCj5cMRAcUQZ5JM SlnHRtY2Hr kT3vCcFrFDZmQHQiO7PvdO QlEYpyB685BOtwHvF2GUJz pwHxY6ZbRTVffUosMsL9z1 W3Fa9KXj90 LN09MO75wRWdm0G6kJK8G0 LeSNJyprddhwbqlZA6FCFd FKHdnY34Ms7hgAzjBl6gYB TzSZA0DLDt uUVhH7AzyN8iPjWhENJdBP XzF7OiwNIxYUoqU610JTkq HqI6IMLtptSyQ0AjMPPclV pjNvH1l8T6 Fx7ELAlamzi6K9OcHpjywE I+CH36IJFuRS99iFHpuJQs t4xktXm9XqJiPJBnGAA8nP iuHYdrb3Ce TDLzT27s (more content not included)... Normal [facility] US KIDNEYSon 05-14-2022 US KIDNEYS EXAMINATION: [...] by: SOFIE PATTERSON Date: 2022-05-14 14:20 Normal [facility] Consent for Treatmenton 04-18 Consent for Treatment [id number]#1. 00CD:127 Normal [facility] Legal Correspondence Officeo n 05-09-2022 Legal Correspondence Office [id number]#1. 00CD:127 Normal [facility] Office/Clinic Note-Physician on 05-09-2022 Office/Clinic Note-Physician [id number]#1. 00CD:127 Normal [facility] Patient Correspondenceon Patient Correspondence [id number]#1. 00CD:127 Normal [facility] Patient Correspondence [id number]#1. 00CD:127 Normal [facility] Patient Correspondence [id number]#1. 00CD:127 Normal [facility] Patient History Officeon Patient History Office [id number]#1. 00CD:127 Normal [facility] INSULINon 04-26-2022 Insulin 25.3 uIU/mL Critically high 2.6-24.9 [facility] Comment on above: Performed By: #### I NSULIN ####[facility] [id number] [id number]. Marion Bullard CBC AUTO DIFFon 04-25-2022 BASO # 0.1 103/ul Normal 0.0-0.1 [facility] Comment on above: Performed By: #### C BC #### [facility] [address] [address] [address] Marion Bullard Basophils/100 WBC (Bld) 0.6 % Normal 0.2-2.0 [facility] Comment on above: Performed By: #### C BC #### [facility] [address] [address] [address] Marion Bullard EO # 0.2 103/ul Normal 0.0-0.7 [facility] Comment on above: Performed By: #### C BC #### [facility] [address] [address] [address] Marion Bullard Eosinophils/100 WBC (Bld) 1.1 % Normal 0.9-7.0 [facility] Comment on above: Performed By: #### C BC #### [facility] [address] [address] [address] Marion Bullard Erythrocyte distribution width (RBC) [Ratio] 12.7 % Normal 11.0-15.0 [facility] Comment on above: Performed By: #### C BC #### [facility] [address] [address] [address] Marion Bullard Hematocrit (Bld) [Volume fraction] 43.8 % Normal 36.0-48.0 [facility] Comment on above: Performed By: #### C BC #### [facility] [address] [address] [address] Marion Bullard Hemoglobin (Bld) [Mass/Vol] 14.6 g/dL Normal 12.0-16.0 [facility] Comment on above: Performed By: #### C BC #### [facility] [address] [address] [address] Marion Bullard IG # 0.11 10e3/ul Critically high 0.00-0.03 [facility] Comment on above: Performed By: #### C BC #### [facility] [address] [address] [address] Marion Bullard IG % 0.7 % Critically high 0.0-0.5 [facility] Comment on above: Performed By: #### C BC #### [facility] [address] [place] [address] Dr. Marion Bullard LYMPH # 3.1 103/ul Normal 1.2-3.8 [facility] Comment on above: Performed By: #### C BC #### [facility] [address] [place] [address] Dr. Marion Bullard Lymphocytes/100 WBC (Bld) 19.4 % Critically low 20.5-60.0 [facility] Comment on above: Performed By: #### C BC #### [facility] [address] [place] [address] Dr. Marion Bullard MANUAL DIFF REQ NO Normal [facility] Comment on above: Performed By: #### C BC #### [facility] [address] [address] [address] Marion Bullard MCH (RBC) [Entitic mass] 29.9 pg Normal 26.7-34.0 [facility] Comment on above: Performed By: #### C BC #### [facility] [address] [place] [address] Dr. Marion Bullard MCHC (RBC) [Mass/Vol] 33.3 g/dL Normal 29.9-35.2 [facility] Comment on above: Performed By: #### C BC #### [facility] [address] [place] [address] Dr. Marion Bullard MCV (RBC) [Entitic vol] 89.8 fL Normal 81.0-99.0 [facility] Comment on above: Performed By: #### C BC #### [facility] [address] [place] [address] Dr. Marion Bullard MONO # 1.3 103/ul Critically high 0.3-0.8 [facility] Comment on above: Performed By: #### C BC #### [facility] [address] [place] [address] Dr. Marion Bullard Monocytes/100 WBC (Bld) 8.1 % Normal 1.7-12.0 [facility] Comment on above: Performed By: #### C BC #### [facility] [address] [place] [address] Dr. Marion Bullard NEUT # 11.3 103/ul Critically high 1.4-6.5 [facility] Comment on above: Performed By: #### C BC #### [facility] [address] [place] [address] Dr. Marion Bullard Neutrophils/100 WBC (Bld) 70.1 % Normal 43.0-75.0 [facility] Comment on above: Performed By: #### C BC #### [facility] [address] [place] [address] Dr. Marion Bullard Platelet mean volume (Bld) [Entitic vol] 8.5 fL Critically low 9.5-13.5 [facility] Comment on above: Performed By: #### C BC #### [facility] [address] [place] [address] Dr. Marion Bullard PLT 488 103/ul Critically high 150-450 [facility] Comment on above: Performed By: #### C BC #### [facility] [address] [place] [address] Dr. Marion Bullard RBC 4.88 106/ul Normal 4.20-5.40 [facility] Comment on above: Performed By: #### C BC #### [facility] [address] [place] [address] Dr. Marion Bullard WBC 16.1 103/ul Critically high 4.0-11.0 [facility] Comment on above: Performed By: #### C BC #### [facility] [address] [place], [place] [address] Dr. Marion Bullard FREE THYROXINE INDEX T7on FTI 2.69 Normal 1.30-4.50 [facility] Comment on above: Performed By: #### L IPID, CMP, T7, TSH ####[facility] [id number] [place], [place] [address]Eg. Marion Bullard T3U 34.0 % Normal 30.0-39.0 [facility] Comment on above: Performed By: #### L IPID, CMP, T7, TSH ####[facility] [id number] [place] [id number] Bullard T4 [Mass/Vol] 7.90 ug/dL Normal 4.80-13.90 [facility] Comment on above: Performed By: #### L IPID, CMP, T7, TSH ####[facility] [id number] [place], [place] [address]OuSolitario Bullard GLYCOHEMOGLOBIN A1Con 2022 ADA RECOMMENDATION SEE BELOW Normal [facility] Comment on above: Result Comment: ADA RECOMMENDED LIMIT 4.0 - 6.0 ADA THERAPEUTIC TARGET < 7.0 ACTION SUGGESTED > 7.0 Performed By: #### A 1C ####[facility] [id number] [place] [id number] Bullard Glucose [Mass/Vol] 120 mg/dL Normal [facility] Comment on above: Performed By: #### A 1C ####[facility] [id number] [place] [id number] Bullard HbA1c (Bld) [Mass fraction] 5.8 % Normal 4.5-6.2 [facility] Comment on above: Performed By: #### A 1C ####[facility] [id number] [place] [id number] Bullard IRONon 04-25-2022 Iron [Mass/Vol] 94.0 ug/dL Normal 50.0-170.0 [facility] Comment on above: Performed By: #### I NANCY #### [facility] [address] [place] [address] [address] Marion Bullard LIPID PROFILEon 04-25-2022 CHOL-HDL RATIO NORM SEE BELOW Normal [facility] Comment on above: Result Comment: 3.3 - 4.4 LOW RISK 4.4 - 7.1 AVERAGE RISK 7.1 - 11.0 MODERATE RISK >11.0 HIGH RISK Performed By: #### L IPID, CMP, T7, TSH #### [facility] [address] [place] [address] [address] Marion Bullard Cholesterol [Mass/Vol] 193 mg/dL Normal <=200 [facility] Comment on above: Performed By: #### L IPID, CMP, T7, TSH #### [facility] [address] [place] [address] [address] Marion Bullard Cholesterol in HDL [Mass/Vol] 49 mg/dL Normal 40-60 [facility] Comment on above: Performed By: #### L IPID, CMP, T7, TSH #### [facility] [address] [place] [address] [address] Marion Bullard Cholesterol in LDL [Mass/Vol] 122.4 mg/dL Normal [facility] Comment on above: Performed By: #### L IPID, CMP, T7, TSH #### [facility] [address] [place] [address] [address] Marion Bullard Cholesterol.total/Ch olesterol in HDL [Mass ratio] 3.9 {ratio} Normal [facility] Comment on above: Performed By: #### L IPID, CMP, T7, TSH #### [facility] [address] [place] [address] [address] Marion Bullard HDL NORMAL > or = 60 mg/dl - LO W CARDIOVASCULAR RISK <40 mg/dl - HIGH CARDIOVASCULAR RISK Normal [facility] Comment on above: Performed By: #### L IPID, CMP, T7, TSH #### [facility] [address] [address] [address] Marion Bullard LDL CALC NORMAL SEE BELOW Normal [facility] Comment on above: Result Comment: <100 mg/dl OPTIMAL 100 - 129 mg/dl NEAR OR ABOVE OPTIMAL 130 - 159 mg/dl BORDERLINE HIGH 160 - 189 mg/dl HIGH >190 mg/dl VERY HIGH Performed By: #### L IPID, CMP, T7, TSH #### [facility] [address] [place] [address] [address] Marion Bullard Triglyceride [Mass/Vol] 108 mg/dL Normal <=150 [facility] Comment on above: Performed By: #### L IPID, CMP, T7, TSH #### [facility] [address] [place] [address] [address] Marion Bullard VLDL CALC 21.6 mg/dL Normal [facility] Comment on above: Performed By: #### L IPID, CMP, T7, TSH #### [facility] [address] [place] [address] Dr. Marion Bullard PROF 14(COMP METB)on 023 Albumin [Mass/Vol] 3.4 g/dL Normal 3.4-5.0 [facility] [place] Comment on above: Performed By: #### L IPID, CMP, T7, TSH #### [facility] [address] [place] [address] [address] Marion Bullard Albumin/Globulin [Mass ratio] 0.9 {ratio} Normal [facility] Comment on above: Performed By: #### L IPID, CMP, T7, TSH #### [facility] [address] [place] [address] [address] Marion Bullard ALP [Catalytic activity/Vol] 93 U/L Normal 46-116 [facility] Comment on above: Performed By: #### L IPID, CMP, T7, TSH #### [facility] [address] [place] [address] [address] Marion Bullard ALT [Catalytic activity/Vol] 26 U/L Normal 14-59 [facility] Comment on above: Performed By: #### L IPID, CMP, T7, TSH #### [facility] [address] [place] [address] [address] Marion Bullard Anion gap [Moles/Vol] 12.7 mmol/L Normal [facility] Comment on above: Performed By: #### L IPID, CMP, T7, TSH #### [facility] [address] [place] [address] [address] Marion Bullard AST [Catalytic activity/Vol] 21 U/L Normal 15-37 [facility] Comment on above: Performed By: #### L IPID, CMP, T7, TSH #### [facility] [address] [place] [address] [address] Marion Bullard Bilirubin [Mass/Vol] 0.5 mg/dL Normal 0.2-1.0 [facility] Comment on above: Performed By: #### L IPID, CMP, T7, TSH #### [facility] [address] [place] [address] Dr. Marion Bullard Calcium [Mass/Vol] 9.1 mg/dL Normal 8.5-10.1 [facility] [place] Comment on above: Performed By: #### L IPID, CMP, T7, TSH #### [facility] [address] [place] [address] [address] Marion Bullard Chloride [Moles/Vol] 104 mmol/L Normal 98-107 [facility] Comment on above: Performed By: #### L IPID, CMP, T7, TSH #### [facility] [address] [place] [address] [address] Marion Bullard CO2 [Moles/Vol] 29.2 mmol/L Normal 21.0-32.0 [facility] Comment on above: Performed By: #### L IPID, CMP, T7, TSH #### [facility] [address] [place] [address] [address] Marion Bullard Creatinine [Mass/Vol] 0.68 mg/dL Normal 0.55-1.02 [facility] Comment on above: Performed By: #### L IPID, CMP, T7, TSH #### [facility] [address] [place] [address] [address] Marion Bullard EGFR-AF THAI >60 Normal >=60 [facility] Comment on above: Performed By: #### L IPID, CMP, T7, TSH #### [facility] [address] [place] [address] [address] Marion Bullard EGFR-NON AF THAI >60 Normal >=60 [facility] Comment on above: Performed By: #### L IPID, CMP, T7, TSH #### [facility] [address] [place] [address] [address] Marion Bullard Globulin (S) [Mass/Vol] 3.9 g/dL Normal [facility] Comment on above: Performed By: #### L IPID, CMP, T7, TSH #### [facility] [address] [place] [address] [address] Marion Bullard Glucose [Mass/Vol] 103 mg/dL Normal 74-106 [facility] [place] Comment on above: Performed By: #### L IPID, CMP, T7, TSH #### [facility] [address] [place] [address] Dr. Marion Bullard Potassium [Moles/Vol] 3.9 mmol/L Normal 3.5-5.1 [facility] Comment on above: Performed By: #### L IPID, CMP, T7, TSH #### [facility] [address] [place] [address] [address] Marion Bullard Protein [Mass/Vol] 7.3 g/dL Normal 6.4-8.2 [facility] Comment on above: Performed By: #### L IPID, CMP, T7, TSH #### [facility] [address] [place] [address] Dr. Marion Bullard Sodium [Moles/Vol] 142 mmol/L Normal 136-145 [facility] Comment on above: Performed By: #### L IPID, CMP, T7, TSH #### [facility] [address] [place] [address] Dr. Marion Bullard Urea nitrogen [Mass/Vol] 13.0 mg/dL Normal 7.0-18.0 [facility] Comment on above: Performed By: #### L IPID, CMP, T7, TSH #### [facility] [address] [place] [address] Dr. Marion Bullard Urea nitrogen/Creatinine [Mass ratio] 19.1 mg/mg Normal [facility] Comment on above: Performed By: #### L IPID, CMP, T7, TSH #### [facility] [address] [place] [address] Dr. Marion Bullard PROTIMEon 04-25-2022 INR Coag (PPP) [Relative time] 0.95 {INR} Normal [facility] Comment on above: Performed By: #### P TT, PT #### [facility] [address] [place] [address] Dr. Marion Bullard INR GUIDELINES SEE BELOW Normal [facility] Comment on above: Result Comment: YARELI RED INR: 2.0 - 3.0 CONDITIONS NOT LISTED BELOW 2.5 - 3.5 FOR PROSTHETIC HEART VALVE REPLACEMENT 2.5 - 3.5 RECURRENT THROMBOSIS Performed By: #### P TT, PT #### [facility] [address] [place] [address] Dr. Marion Bullard PT Coag (PPP) [Time] 10.1 s Normal 9.0-11.6 [facility] Comment on above: Performed By: #### P TT, PT #### [facility] [address] [place] [address] Dr. Marion Bullard PTTon 04-25-2022 aPTT Coag (Bld) [Time] 27.3 s Normal 22.3-36.2 [facility] Comment on above: Performed By: #### P TT, PT #### [facility] [address] [place] [address] Dr. Marion Bullard TSHon 04-25-2022 TSH 3.782 uIU/mL Critically high 0.358-3.740 [facility] Comment on above: Performed By: #### L IPID, CMP, T7, TSH #### [facility] [address] [place] [address] Dr. Marion Bullard XR HAND LT MIN [...] by: JANNA SON Date: 2022-03-29 16:06 Normal [facility] Vital Signs Date Time Vital Sign Value Performing Clinician Facility 03-28-2023 14:25-0500 Diastolic blood pressure 80 mm[Hg] Nyasia Sanguine [facility] 03-28-2023 14:25-0500 Heart rate 82 /min Nyasia Sanguine [facility] 03-28-2023 14:25-0500 Mean blood pressure 107 mm[Hg] Nyasia Sanguine [facility] 03-28-2023 14:25-0500 Respiratory rate 16 /min Nyasia Sanguine [facility] 03-28-2023 14:25-0500 Systolic blood pressure 162 mm[Hg] Nyasia Sanguine [facility] 02-21-2023 15:11-0500 Diastolic blood pressure 101 mm[Hg] Nyasia Sanguine [facility] 02-21-2023 15:11-0500 Heart rate 74 /min Nyasia Sanguine [facility] 02-21-2023 15:11-0500 Mean blood pressure 116 mm[Hg] Nyasia Helton [facility] 02-21-2023 15:11-0500 Respiratory rate 18 /min Nyasia Helton [facility] 02-21-2023 15:11-0500 Systolic blood pressure 147 mm[Hg] Nyasia Helton [facility] 01-20-2023 13:49-0500 Heart rate 81 /min Barry Neeraj [facility] 01-20-2023 13:49-0500 SaO2% (BldA) [Mass fraction] 98 % Barry Neeraj [facility] 01-20-2023 13:49-0500 Diastolic blood pressure 84 mm[Hg] Barry Neeraj [facility] 01-20-2023 13:49-0500 Mean blood pressure 109 mm[Hg] Barry Neeraj [facility] 01-20-2023 13:49-0500 Systolic blood pressure 160 mm[Hg] Barry Neeraj [facility] 01-20-2023 13:49-0500 Respiratory rate 16 /min Barry Neeraj [facility] 01-20-2023 13:43-0500 Diastolic blood pressure 94 mm[Hg] Barry Neeraj [facility] 01-20-2023 13:43-0500 Heart rate 76 /min Barry Neeraj [facility] 01-20-2023 13:43-0500 SaO2% (BldA) [Mass fraction] 98 % Barry Neeraj [facility] 01-20-2023 13:43-0500 Systolic blood pressure 159 mm[Hg] Barry Neeraj [facility] 01-20-2023 13:35-0500 Heart rate 87 /min Barry Pickard [facility] 01-20-2023 13:35-0500 SaO2% (BldA) [Mass fraction] 98 % Barry Pickard [facility] 01-20-2023 13:35-0500 Diastolic blood pressure 77 mm[Hg] Barry Pickard [facility] 01-20-2023 13:35-0500 Mean blood pressure 98 mm[Hg] Barry Pickard [facility] 01-20-2023 13:35-0500 Systolic blood pressure 140 mm[Hg] Barry Pickard [facility] 01-20-2023 13:33-0500 Respiratory rate 14 /min Barry Pickard [facility] 06-24-2022 13:44-0400 Body temperature 98.49 [degF] John Liz MD Work Phone: [facility] 06-24-2022 13:44-0400 Body weight 93.44 kg John Liz MD Work Phone: [facility] 05-09-2022 14:51-0400 Diastolic blood pressure 79 mm[Hg] Gerald Zumbar [facility] 05-09-2022 14:51-0400 Heart rate 90 /min Gerald Zumbar [facility] 05-09-2022 14:51-0400 Mean blood pressure 94 mm[Hg] Gerald Zumbar [facility] 05-09-2022 14:51-0400 Respiratory rate 16 /min Gerald Zumbar [facility] 05-09-2022 14:51-0400 Systolic blood pressure 125 mm[Hg] Gerald Zumbar [facility] 03-20-2022 13:46-0500 Diastolic blood pressure 65 mm[Hg] Gerald Zumbar [facility] 03-20-2022 13:46-0500 Heart rate 89 /min Gerald Zumbar [facility] 03-20-2022 13:46-0500 Mean blood pressure 85 mm[Hg] Gerald Zumbar [facility] 03-20-2022 13:46-0500 Systolic blood pressure 124 mm[Hg] Gerald Zumbar [facility] 03-20-2022 13:37-0500 Diastolic blood pressure 107 mm[Hg] Gerald Zumbar [facility] 03-20-2022 13:37-0500 Heart rate 80 /min Gerald Zumbar [facility] 03-20-2022 13:37-0500 Respiratory rate 14 /min Gerald Zumbar [facility] 03-20-2022 13:37-0500 SaO2% (BldA) [Mass fraction] 98 % Gerald Zumbar [facility] 03-20-2022 13:37-0500 Systolic blood pressure 144 mm[Hg] Gerald Zumbar [facility] 03-20-2022 13:23-0500 Heart rate 82 /min Gerald Zumbar [facility] 03-20-2022 13:23-0500 SaO2% (BldA) [Mass fraction] 96 % Gerald Zumbar [facility] 03-20-2022 13:23-0500 Diastolic blood pressure 85 mm[Hg] Gerald Zumbar [facility] 03-20-2022 13:23-0500 Mean blood pressure 107 mm[Hg] Gerald Zumbar [facility] 03-20-2022 13:23-0500 Systolic blood pressure 149 mm[Hg] Gerald Zumbar [facility] 03-20-2022 13:23-0500 Body temperature 98.06 [degF] Gerald Zumbar [facility] 03-20-2022 13:22-0500 Respiratory rate 12 /min Gerald Zumbar [facility] 01-23-2022 09:24-0500 Diastolic blood pressure 81 mm[Hg] Gerald Zumbar [facility] 01-23-2022 09:24-0500 Heart rate 81 /min Gerald Zumbar [facility] 01-23-2022 09:24-0500 Mean blood pressure 100 mm[Hg] Gerald Zumbar [facility] 01-23-2022 09:24-0500 Respiratory rate 12 /min Gerald Zumbar [facility] 01-23-2022 09:24-0500 Systolic blood pressure 137 mm[Hg] Gerald Zumbar [facility] 11-20-2021 07:59-0400 Diastolic blood pressure 94 mm[Hg] Cezar Coe [facility] 11-20-2021 07:59-0400 Heart rate 76 /min Cezar Coe [facility] 11-20-2021 07:59-0400 Mean blood pressure 115 mm[Hg] Cezar Coe [facility] 11-20-2021 07:59-0400 Systolic blood pressure 158 mm[Hg] Cezar Coe [facility] 11-15-2021 14:24-0400 Diastolic blood pressure 89 mm[Hg] Gerald Zumbar [facility] 11-15-2021 14:24-0400 Heart rate 83 /min Gerald Zumbar [facility] 11-15-2021 14:24-0400 Mean blood pressure 108 mm[Hg] Gerald Zumbar [facility] 11-15-2021 14:24-0400 Respiratory rate 12 /min Gerald Conchitaumbar [facility] 11-15-2021 14:24-0400 Systolic blood pressure 145 mm[Hg] Gerald Zumbar [facility] Encounters Encounter Date Encounter Type Care Provider Facility Start: 03-28-2023 End: 03-29-2023 ambulatory Nyasia Helton Facility:[facility] Start: 03-28-2023 End: 03-28-2023 Pain Management Nyasia Helton [facility] Start: 03-11-2023 Telephone encounter Megan maciel MD Work Phone: Dermatology Start: 03-10-2023 End: 03-10-2023 ambulatory ADÁN LALA Facility:[facility] Start: 02-21-2023 End: 02-22-2023 ambulatory Nyasia Helton Facility:[facility] Start: 02-21-2023 End: 02-21-2023 Pain Management Nyasia Helton [facility] Start: 01-22-2023 End: 01-22-2023 ambulatory JOHN LIZ Facility:[facility] Start: 01-22-2023 End: 01-22-2023 Patient encounter procedure John Liz MD Work Phone: Rheumatology Comment on above: Seropositive rheumat oid arthritis (HCC) (Primary Dx); Medication monitoring encounter Start: 01-20-2023 End: 01-21-2023 ambulatory Barry Pickard Facility:[facility] Start: 01-20-2023 End: 01-20-2023 Pain Management Barry Pickard [facility] Start: 01-17-2023 End: 01-17-2023 ambulatory ADÁN M DAI Facility:[facility] Start: 12-12-2022 Refill John Liz MD Work Phone: Rheumatology Comment on above: Refill Request Start: 11-08-2022 Telephone encounter Yanna De Santiago ala, MD Work Phone: Dermatology Comment on above: Patient Question Start: 11-06-2022 Refill Yanna Miller MD Work Phone: Dermatology Comment on above: Refill Request Start: 10-28-2022 Telephone encounter John Liz MD Work Phone: Rheumatology Comment on above: Patient Update (Ran christopher) Start: 10-01-2022 Telephone encounter John Liz MD Work Phone: Rheumatology Comment on above: Medication Problem Start: 09-25-2022 End: 09-25-2022 ambulatory EULA TYLER Facility:[facility] Start: 09-25-2022 End: 09-25-2022 Patient encounter procedure John Liz MD Work Phone: Rheumatology Comment on above: Seropositive rheumat oid arthritis (HCC) (Primary Dx); Medication monitoring encounter Start: 08-06-2022 End: 08-06-2022 ambulatory EULA TYLER Facility:[facility] Start: 06-27-2022 End: 06-28-2022 ambulatory EULA TYLER Facility:[facility] Start: 06-27-2022 End: 06-27-2022 Patient encounter procedure Yanna Miller MD Work Phone: Dermatology Comment on above: Psoriasis (Primary D x); Intertrigo Start: 06-26-2022 Telephone encounter John Liz MD Work Phone: Rheumatology Comment on above: Results Start: 06-26-2022 End: 06-27-2022 ambulatory MD Gerald Pham Facility:[facility] Start: 06-24-2022 End: 06-24-2022 ambulatory EULA TYLER Facility:[facility] Start: 06-24-2022 End: 06-24-2022 Patient encounter procedure John Liz MD Work Phone: Rheumatology Comment on above: Bilateral hand swell ing (Primary Dx); Psoriasis Start: 06-19-2022 End: 06-20-[address] ADÁN LALA . Facility: Start: 05-30-2022 End: 05-31-2022 ambulatory Gerald Pham Facility:[facility] Start: 05-30-2022 End: 05-30-2022 Patient encounter procedure Gerald Pham [facility] Start: 05-14-2022 End: 05-15-[address] ADÁN LALA . Facility: Start: 05-09-2022 End: 05-10-2022 ambulatory Adán Lala Facility:[facility] Start: 05-09-2022 End: 05-09-2022 Pain Management Gerald Pham [facility] Start: 04-25-2022 End: 04-26-[address] ADÁN LALA . Facility:[facility] Start: 03-29-2022 End: 03-30-[address] ADÁN LALA . Facility: Start: 03-20-2022 End: 03-20-2022 Pain Management Gerald Pham [facility] Start: 01-23-2022 End: 01-23-2022 Pain Management Gerald Pham [facility] Start: 11-20-2021 End: 11-20-2021 Patient encounter procedure Cezar Coe [facility] Start: 11-15-2021 End: 11-15-2021 Pain Management Gerald Ankit [facility] Procedures Date Procedure Procedure Detail Performing Clinician Start: 02-17-2023 Avulsion of varicose vein of leg Nyasia Sanguine Start: 01-20-2023 Injection of nerve r oot of lumbar spine using fluoroscopic guidance Nyasia Sanguine Comment on above: 02/21/2023 15:13 SHARMIN Fisher RN, Janay Minaya 85% x2 weeks, now 0% Start: 05-09-2022 Epidural injection o f thoracic spine using fluoroscopic guidance Gerald Ankit Comment on above: L5-S1 SANJAY- no relief Start: 01-17-2021 Injection of nerve r oot of lumbar spine using fluoroscopic guidance Gerald Zallie Comment on above: Right L4 & L5 TFESI- 90-100% relief. Start: 02-17-1999 Cholecystectomy Gerald Pham Start: 02-17-1961 Tonsillectomy and adenoidectomy Gerald Zjesuscathleen Carpal tunnel syndro me of right wrist (disorder) Gerald Ankit Dilation and curetta ge of uterus Gerald Arangoallie Plan of Treatment Date Care Activity Detail Author Start: 12-20-2028 Urine microalbumin profile DTaP,Tdap,Td Vaccine (2 - Td or Tdap) [facility] Start: 01-17-2026 Diabetes Screening Diabetes Screencarol garcia [facility] Start: 09-25-2025 DIABETES SCREEN DIABETES SCREEN [facility] Start: 09-25-2025 Diabetes Screening Diabetes Screenin g [facility] Start: 08-06-2025 DIABETES SCREEN DIABETES SCREEN [facility] Start: 06-24-2025 DIABETES SCREEN DIABETES SCREEN [facility] Start: 04-23-2023 End: 01-23-2024 CBC W Auto Differential panel - Blood CBC + DIFF Lab Routine Seropositive rheumatoid arthritis (HCC) Medication monitoring encounter Expected: 04/23/2023, Expires: 01/23/2024 [facility] Work Phone: Comment on above: Expected: 04/23/2023 , Expires: 01/23/2024 Start: 04-23-2023 End: 01-23-2024 Comprehensive metabolic 2000 panel - Serum or Plasma COMP METABOLIC PANEL Lab Routine Seropositive rheumatoid arthritis (HCC) Medication monitoring encounter Expected: 04/23/2023, Expires: 01/23/2024 [facility] Work Phone: Comment on above: Expected: 04/23/2023 , Expires: 01/23/2024 Start: 04-23-2023 End: 01-23-2024 Erythrocyte sedimentation rate SED RATE WESTERGREN Lab Routine Seropositive rheumatoid arthritis (HCC) Medication monitoring encounter Expected: 04/23/2023, Expires: 01/23/2024 [facility] Work Phone: Comment on above: Expected: 04/23/2023 , Expires: 01/23/2024 Start: 02-17-2023 Advance Directive Discussion Advance Directive Discussion [facility] Start: 02-17-2023 Depression Assessment Depression Ass essment [facility] Start: 12-12-2022 End: 12-13-2023 CBC W Auto Differential panel - Blood CBC + DIFF Lab Routine Seropositive rheumatoid arthritis (HCC) Medication monitoring encounter Expected: 12/12/2022, Expires: 12/13/2023 [facility] Work Phone: Comment on above: Expected: 12/12/2022 , Expires: 12/13/2023 Start: 12-12-2022 End: 12-13-2023 Comprehensive metabolic 2000 panel - Serum or Plasma COMP METABOLIC PANEL Lab Routine Seropositive rheumatoid arthritis (HCC) Medication monitoring encounter Expected: 12/12/2022, Expires: 12/13/2023 [facility] Work Phone: Comment on above: Expected: 12/12/2022 , Expires: 12/13/2023 Start: 12-12-2022 End: 12-13-2023 Erythrocyte sedimentation rate [facility] Lab Routine Seropositive rheumatoid arthritis (HCC) Medication monitoring encounter Expected: 12/12/2022, Expires: 12/13/2023 [facility] Work Phone: Comment on above: Expected: 12/12/2022 , Expires: 12/13/2023 Start: 10-18-2022 Influenza vaccination [facility] Start: 09-25-2022 End: 09-26-2023 Comprehensive metabolic 2000 panel - Serum or Plasma [facility] Work Phone: Comment on above: Expected: 09/25/2022 , Expires: 09/26/2023 Start: 09-25-2022 End: 09-26-2023 Erythrocyte sedimentation rate [facility] Work Phone: Comment on above: Expected: 09/25/2022 , Expires: 09/26/2023 Start: 06-26-2022 End: 06-27-2023 CBC W Auto Differential panel - Blood CBC + DIFF Lab Routine Inflammatory arthritis Medication monitoring encounter Expected: 06/26/2022, Expires: 06/27/2023 [facility] Work Phone: Comment on above: Expected: 06/26/2022 , Expires: 06/27/2023 Start: 06-26-2022 End: 08-26-2022 Chronic hepatitis differentiation between hepatitis B and C virus panel - Serum or Plasma HEP REMOTE PANEL BL Lab Routine Inflammatory arthritis Medication monitoring encounter Expected: 06/26/2022, Expires: 08/26/2022 [facility] Work Phone: Comment on above: Expected: 06/26/2022 , Expires: 08/26/2022 Start: 06-26-2022 End: 06-27-2023 Comprehensive metabolic 2000 panel - Serum or Plasma COMP METABOLIC PANEL Lab Routine Inflammatory arthritis Medication monitoring encounter Expected: 06/26/2022, Expires: 06/27/2023 [facility] Work Phone: Comment on above: Expected: 06/26/2022 , Expires: 06/27/2023 Start: 06-26-2022 End: 06-27-2023 Erythrocyte sedimentation rate SED RATE WESTERGREN Lab Routine Inflammatory arthritis Medication monitoring encounter Expected: 06/26/2022, Expires: 06/27/2023 [facility] Work Phone: Comment on above: Expected: 06/26/2022 , Expires: 06/27/2023 Start: 06-24-2022 End: 06-25-2023 C reactive protein [Mass/volume] in Serum or Plasma [facility] Work Phone: Comment on above: Expected: 06/24/2022 , Expires: 06/25/2023 Start: 06-24-2022 End: 08-24-2022 Comprehensive metabolic 2000 panel - Serum or Plasma [facility] Work Phone: Comment on above: Expected: 06/24/2022 , Expires: 08/24/2022 Start: 06-24-2022 End: 08-24-2022 Creatine kinase [Enzymatic activity/volume] in Serum or Plasma [facility] Work Phone: Comment on above: Expected: 06/24/2022 , Expires: 08/24/2022 Start: 06-24-2022 End: 06-25-2023 Cyclic citrullinated peptide IgG Ab [Units/volume] in Serum or Plasma [facility] Work Phone: Comment on above: Expected: 06/24/2022 , Expires: 06/25/2023 Start: 06-24-2022 End: 06-25-2023 Nuclear Ab [Presence] in Serum by Immunoassay [facility] Work Phone: Comment on above: Expected: 06/24/2022 , Expires: 06/25/2023 Start: 06-24-2022 End: 08-24-2022 PROTEIN ELECTROPHORESIS SERUM W/INTERP [facility] Work Phone: Comment on above: Expected: 06/24/2022 , Expires: 08/24/2022 Start: 06-24-2022 End: 06-25-2023 Rheumatoid factor [Units/volume] in Serum or Plasma [facility] Work Phone: Comment on above: Expected: 06/24/2022 , Expires: 06/25/2023 Start: 06-24-2022 End: 08-24-2022 Urate [Mass/volume] in Serum or Plasma [facility] Work Phone: Comment on above: Expected: 06/24/2022 , Expires: 08/24/2022 Start: 02-17-2022 ADVANCE DIRECTIVE DISCUSSION ADVANCE DIRECTIVE DISCUSSION [facility] Start: 02-17-2022 DEPRESSION ASSESSMENT DEPRESSION ASS ESSMENT [facility] Start: 09-28-2020 BONE DENSITY BONE DENSITY [facility] Start: 09-28-2020 Bone Density Screening Bone Density Screening [facility] Start: 09-28-2020 PNEUMOCOCCAL: 65+ (1 - PCV) PNEUMOCOCCAL: 65+ (1 - PCV) [facility] Start: 09-28-2020 Screening for osteoporosis Bone Density Screening [facility] Start: 02-28-2017 Pneumococcal Vaccine : 65+ (2 - PCV) Pneumococcal Vaccine: 65+ (2 - PCV) [facility] Start: 02-28-2017 Pneumococcal Vaccine : 65+ (2 of 2 - PCV) Pneumococcal Vaccine: 65+ (2 of 2 - PCV) [facility] Start: 2015 RSV Vaccine (1 - 1-d ose 60+ series) RSV Vaccine (1 - 1-dose 60+ series) [facility] Start: 09-28-2005 SHINGRIX VACCINE (1 of 2) BA GRIX VACCINE (1 of 2) [facility] Start: 09-28-2000 COLOGUARD (FIT-DNA) COLOGUARD (FIT-D NA) [facility] Start: 09-28-2000 Colonoscopy COLONOSCOPY [facility] Start: 09-28-2000 COLORECTAL CANCER SCREENING COLORECTAL CANCER SCREENING [facility] Start: 09-28-[address] COLONOGRAPHY [facility] Start: 09-28-2000 DIABETES SCREEN DIABETES SCREEN [facility] Start: 09-28-2000 FECAL OCCULT BLOOD FECAL OCCULT BLOO D [facility] Start: 09-28-2000 Lipid 1996 panel - S west or Plasma Lipid Screening [facility] Start: 09-28-2000 Lipid panel Lipid Screening [facility] Start: 09-28-2000 LIPID SCREEN LIPID SCREEN [facility] Start: 09-28-2000 Screening for malign ant neoplasm of colon [facility] Start: 09-28-2000 SIGMOIDOSCOPY SIGMOIDOSCOPY [facility] Start: 1995 Mammography [facility] Start: 1995 Screening for malign ant neoplasm of breast Mammogram Screening [facility] Start: 09-28-1974 SHINGRIX VACCINE (1 of 2) BA GRIX VACCINE (1 of 2) [facility] Start: 09-28-1974 Urine microalbumin profile [facility] Start: 09-28-1973 HEPATITIS C SCREENING HEPATITIS C SC REENING [facility] Start: 09-28-1961 Pneumococcal Vaccine : 65+ (1 - PCV) Pneumococcal Vaccine: 65+ (1 - PCV) [facility] Start: 09-28-1961 PNEUMOCOCCAL: 65+ (1 - PCV) PNEUMOCOCCAL: 65+ (1 - PCV) [facility] Start: 09-28-1960 COVID-19 VACCINE (#1) COVID-19 VACCI NE (#1) [facility] Start: 03-31-1956 COVID-19 VACCINE (#1) COVID-19 VACCI NE (#1) [facility] CBC W Auto Different ial panel - Blood CBC + DIFF Lab Routine Bilateral hand swelling 06/24/2022 3:03 PM EDT [facility] Work Phone: End: 07-24-2023 Radiologic exam chest 2 views XR CHEST 2V FRONTAL/LAT Radiology Routine Bilateral hand swelling 1 Occurrences starting 06/24/2022 until 07/24/2023 [facility] Work Phone: Comment on above: 1 Occurrences starti ng 06/24/2022 until 07/24/2023 Radiologic exam ches t 2 views XR CHEST 2V FRONTAL/LAT Radiology Routine Bilateral hand swelling 06/24/2022 3:26 PM EDT [facility] Work Phone: [facility] Immunizations Immunization Date Immunization Notes Care Provider Fa cility 12-20-2018 influenza virus vaccine, unspecified formulation John Model MD Work Phone: [facility] 12-18-2018 influenza virus vaccine, live, attenuated, for intranasal use Gerald Pham [facility] [place] Payers Date Payer Category Payer Worker's Compensation [id number] 2022 Worker's Compensation [id number] 2022 Worker's Compensation [id number] [facility] MEDICAID [id number] 2021-Present [phone] [address] [place] [address] Medicaid [id number] 1959 Medicaid [id number] 1959 Medicare [id number] 1955 Unknown [id number] 3 1955 Unknown [id number] 3 1955 Unknown [id number] 3 1955 Unknown [id number] 3 1955 Unknown [id number] 7 1955 Unknown [id number] 7 1955 Unknown [id number] 7 1955 Unknown [id number] 7 1955 Unknown [id number] 7 1955 Unknown [id number] 7 Social History Date Type Detail Facility Start: 02-15-2021 Tobacco smoking status Heavy t obacco smoker (finding) [facility] Start: 06-23-2022 End: 06-24-2022 Sex Assigned At Female [facility] Tobacco smoking stat [facility] Tobacco smoking consumption unknown [facility] Work Phone: Start: 1955 Sex Assigned At Female [facility] Start: 06-23-2022 End: 06-24-2022 History of Social function [facility] Adult Depression Screening Assessment 2 [facility] Start: 06-23-2022 Gender identity Identifies as female gender (finding) [facility] Start: 06-23-2022 Sexual orientation Heterosexual (fin abiodun) [facility] Functional Status Date Assessment Result Facility 03-28-2023 Functional Status N/A [facility] 02-21-2023 Functional Status N/A [facility] 01-20-2023 Functional Status N/A [facility] 05-09-2022 Functional Status N/A [facility] 03-20-2022 Functional Status N/A [facility] 01-23-2022 Functional Status N/A [facility] 11-20-2021 Functional Status N/A [facility] 11-15-2021 Functional Status N/A [facility] Clinical Notes 05-11-2022 to 03-28-2023 Note Date & Type Note Facility 03-28-2023 Evaluation + Plan note Extrac joshua from: Title:Pain Managment Follow up Author:Nyasia Miller Date:03/28/23 Impression and Plan Patient is a 67-year-old female with a past medical history significant for a [facility] claim. The approved diagnosis codes are lumbosacral spinal stenosis M48.07 And strain of unspecified muscles in the right thigh S76.911A. At this time she is using Lyrica 50 mg twice daily. We had a long discussion with the medication. We discussed different options. We discussed increasing this to 3 times a day. Potential side effects were discussed. How to increase it was discussed. Patient would like to trial this. She will follow-up in 2 months for medication management. Call clinic sooner if necessary. OARRS reviewed COLLETTE score: 49% Future Appointments Appointment Date:05/30/2023 03:00:00 PM Scheduled Provider:Nyasia Helton PA-C Location:[facility] Appointment Type:Pain Management - Workmans Comp Follow U [facility]01-22-2024 NoteHNO ID: [id number] Author: YANNA MILLER MD Service: ? Author [...] on the intergluteal cleft, buttocks, dorsal hands Ranier macerated plaques on the abdominal pannus A/P: [...] or sooner if something concerning arises. Resident: Megan Arango MD Dermatology, PGY- 2 I was [...] my direct input. Yanna Miller MD Dermat[facility] StaffGrand [facility] Evaluation + Plan note Extracted from: Title:Pain Managment Follow up Author:Nyasia Miller Date:02/21/23 Impression and Plan Patient is a 67-year-old female with a past medical history significant for a [facility] claim. The approved diagnosis codes are lumbosacral [...] injections. She is going to continue on [place] given to her by her PCP. She is going to start Lyrica 50 mg twice daily. Potential side effects were discussed. How to use the medication was discussed. OARRS was reviewed. COLLETTE score: 46%. Follow-up in 1 month. Future Appointments Appointment Date:03/28/2023 02:15:00 PM Scheduled Provider:Nyasia Helton PA-C Location:[facility] Appointment Type:Pain Management - Workmans Comp Follow U [facility]12-06-2023 NoteHNO ID: [id number] Author: John Liz MD Service: ? Author [...] showing osteoarthritis. Dr Lala her PCP from [facility] in [place] prescribed prednisone 40 mg/d x 5. Reduced [...] Future Standing Expiration Da (more content not included)...[facility] 01-22-2023 History of Present illness Narrative* [...] showing osteoarthritis. Dr Lala her PCP from [facility] in [place] prescribed prednisone 40 mg/d x 5. Reduced [...] mo John Liz MD documented in this encounterUniversity Hospitals [facility]12-04-2023 Note [id number] 12-12-2022 Miscellaneous Notes* Telephone Encounter - [...] Visit Type Date Time Department FLAVIO [facility] 01/22/2023 1:40 [facility] CBC: CBC Latest Ref Rng & [...] Instance) Lab Orders None documented in this encounterUniversity Hospitals Elyria Medical Center09-22-2023 Miscellaneous Notes* Telephone Encounter - Hallie Stallings - 11/08/2022 11:07 AM EDT Patient called in to let Dr. Miller that the triamcinolone (KENALOG) 0.025 % ointment does not work. Patient wants to know if she can be prescribed something else. ketoconazole (NIZORAL) 2 % cream is working well for the patient. documented in this encounterUniversity Hospitals Elyria [facility] Center09-21-2023 Miscellaneous Notes* Telephone Encounter - Doreen William - 11/07/2022 8:54 AM EDT Patient last seen 06/2022 RX Ketoconazole Please approve prescription and any additional refills and e-script to designated pharmacy. Thank you, Doreen William documented in this encounterUniversity Hospitals Elyria Medical Center09-12-2023 Miscellaneous Notes* Telephone Encounter - Lucinda [...] from 21 to 16. documented in this encounterUniversity Hospitals Elyria Medical Center08-16-2023 Miscellaneous Notes* Telephone Encounter - Karyn [...] PM EDT Pt called to let dr. Lzi know since she changed how she takes her medications her feet and anklesare swelling Please call pt [phone] documented in this encounterUniversity Hospitals Elyria Medical Center08-09-2023 NoteHNO ID: [id number] Author: John Liz MD Service: ? Author [...] showing osteoarthritis. Dr Lala her PCP from [facility] in [place] prescribed prednisone 40 mg/d x 5. Reduced [...] RATE WESTERGREN Rv 3 mo John Liz [facility]08-09-2023 History of Present illness Narrative* [...] showing osteoarthritis. Dr Lala her PCP from [facility] in [place] prescribed prednisone 40 mg/d x 5. Reduced [...] mo John Liz MD documented in this encounterUniversity Hospitals Elyria Medical Center05-11-2023 NoteHNO ID: [id number] Author: Yanna Miller MD Service: ? Author [...] Lymph 1.00 - 4.00 k/uL 4.49 (H) Fergus% % 7.0 Abs Fergus <0.87 k/uL 1.50 (H) Eosin% % 0.0 [...] systemic rheumatologic management sugges (more content not included)...[facility]05-11-2023 History of Present illness Narrative* Yanna [...] Lymph 1.00 - 4.00 k/uL 4.49 (H) Fergus% % 7.0 Abs Fergus <0.87 k/uL 1.50 (H) Eosin% % 0.0 [...] arises. Yanna Miller MD documented in this encounterUniversity Hospitals Elyria Medical Center05-10-2023 Miscellaneous Notes* Telephone Encounter - Karyn [...] mail. She said please send Rx to [facility] pharmacy in [place], [place] on [address]. She also notes that her hands are stiff and swollen again. She stopped prednisone Friday (she is out of pills) and the stiffness and swelling came back this morning. Also - she made an appointment to see Derm at [facility]. Her appointment is tomorrow 06/27. 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 John Liz MD documented in this encounterUniversity Hospitals Elyria Medical Center05-08-2023 NoteHNO ID: [id number] Author: John Liz MD Service: ? Author [...] showing osteoarthritis. Dr Lala her PCP from [facility] in [place] prescribed prednisone 40 mg/d x 5. Reduced [...] which included preparing to see the patient, [id number] patient care, completing clinical documentation, obtaining and/or reviewing separately obtained (more content not included)...[facility]05-08-2023 History of Present illness Narrative* John [...] showing osteoarthritis. Dr Lala her PCP from [facility] in [place] prescribed prednisone 40 mg/d x 5. Reduced [...] which included preparing to see the patient, [id number] patient care, completing clinical documentation, obtaining and/or reviewing separately obtained history, performing a medically appropriate examination, counseling and educating the pat ient/family/caregiver, and ordering medications, tests, or procedures. documented in this encounterUniversity Hospitals Elyria Medical Center03-25-2023 NoteHOSPITAL REGULATIONS: All Positive and Important [...] stenosis at the L4-5 foramen. I reviewed [employer] Automated Prescription Reporting System report on her [...] total. Gerald Pham M.D. lr Dictated: 05/09/2022 [id number] Transcribed: 05/10/2022 cc:Adán Lala M.D.[facility] HospitalComment on above:Result Comment: Electronically Signed By: Gerald Pham MD\.br\Date and Time Signed: 05/11/22 18:51 EDTEvaluation + Plan note Future Appointments Appointment Date:11/20/2021 08:00:00 AM Scheduled Provider:Cezar Coe MD [facility]'s [facility] Future App[facility]ments Appointment Date:05/09/2022 02:30:00 PM Scheduled Provider:Gerald Pham MD Location:[facility] App[facility]ment Type[facility] Future Appointments Appointment Date:06/26/2022 11:15:00 AM Scheduled Provider:Gerald Pham MD Location:[facility] Appointment Type:Pain Management - Workmans Comp [facility] Future Appointments Appointment Date:02/21/2023 03:15:00 PM Scheduled Provider:Nyasia Helton PA-C Location:[facility] Appointment Type:[facility] - [facility] Diagnosis Bilateral hand swelling- Primary Psoriasis Other psoriasis documented in this encounter [facility] note* Diagnosis 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 Medication monitoring encounter Encounter for therapeutic drug monitoring documented in this encounter [facility] note* Diagnosis Psoriasis- Primary Other psoriasis Intertrigo Other specified erythematous condition documented in this encounter [facility] note* Diagnosis Seropositive rheumatoid arthritis (HCC)- Primary Rheumatoid arthritis Medication monitoring encounter Encounter for therapeutic drug monitoring documented in this encounter [facility]* Diagnosis Seropositive rheumatoid arthritis (HCC)- Primary Rheumatoid arthritis Medication monitoring encounter Encounter for therapeutic drug monitoring documented in this encounter [facility] course Narrative No data available for this section [facility] No data available for this section [facility] No data available for this section [facility] Reason for Referral Specialty Diagnoses / Procedures Referred By Contac t Referred To Contact Dermatology Diagnoses Psoriasis Procedures CONSULT TO DERMATOLOGY OFFICE/OUTPATIENT [facility] MDM 60-74 MINUTES John Liz MD [address] [place] [address] Referral ID Status Reason Start Date Expiration Date Visits Requested Visits Authorized [id number] Authorized PCP Requested Referral 06/24/2022 06/24/2023 1 1 Specialty Diagnoses / Procedures Referred By Nicolac t Referred To Contact XR IMAGING Diagnoses Bilateral hand swelling Procedures XR FOOT GENERAL 3V AP/LAT/OBL BILATERAL RADEX FOOT COMPLETE MINIMUM 3 VIEWS John Liz MD [address] [place] [address] Xr Imaging Referral ID Status Reason Start Date Expiration Date V isits Requested Visits Authorized [id number] Closed Auto-Generate d Referral 06/24/2022 07/24/2023 1 1 Specialty Diagnoses / Procedures Referred By Contac t Referred To Contact XR IMAGING Diagnoses Bilateral hand swelling Procedures XR HAND/WRIST SURVEY ARTHRITIS 1V PA BILATERAL JOINT SURVEY SINGLE VIEW 2 OR MORE JOINTS John Liz MD [address] [place] [address] Xr Imaging Referral ID Status Reason Start Date Expiration Date V isits Requested Visits Authorized [id number] Closed Auto-Generate d Referral 06/24/2022 07/24/2023 1 [...] Care Team (unrecognized sect ion and content) Adult Probation Officer Relationship Specialty Start Date End Date Eula Tyler [address] [place] [address] PCP - General Family Medicine 06/21/22 Eula Tyler [address] [place] [address] Referring Family Medicine 06/21/22 Adult Probation Officer Relationship Specialty Start Date End Date Eula Tyler [address] [place] [address] PCP - General Family Medicine 06/21/22 Eula Tyler [address] [place] [address] Referring Family Medicine 06/21/22 Adult Probation Officer Relationship Specialty Start Date End Date Eula Tyler [address] [place] [address] PCP - General Family Medicine 06/21/22 Eula Tyler [address] [place] [address] Referring Family Medicine 06/21/22 Adult Probation Officer Relationship Specialty Start Date End Date Eula Tyler [address] [place] [address] PCP - General Family Medicine 06/21/22 Eula Tyler [address] [place] [address] Referring Family Medicine 06/21/22 Adult Probation Officer Relationship Specialty Start Date End Date Eula Tyler [address] [place] [address] PCP - General Family Medicine 06/21/22 Eula Tyler [address] [place] [address] Referring Family Medicine 06/21/22 Adult Probation Officer Relationship Specialty Start Date End Date Eula Tyler PA [address] [place] [address] PCP - General Family Medicine 06/21/22 Eula Tyler PA [address] [place] [address] Referring Family Medicine 06/21/22 Adult Probation Officer Relationship Specialty Start Date End Date Eula Tyler PA [address] [place] [address] PCP - General Family Medicine 06/21/22 Eula Tyler PA [address] [place] [address] Referring Family Medicine 06/21/22 Adult Probation Officer Relationship Specialty Start Date End Date Eula Tyler PA [address] [place] [address] PCP - General Family Medicine 06/21/22 Eula Tyler PA [address] [place] [address] Referring Family Medicine 06/21/22 Adult Probation Officer Relationship Specialty Start Date End Date Eula Tyler PA [address] [place] [address] PCP - General Family Medicine 06/21/22 Eula Tyler PA [address] [place] [address] Referring Family Medicine 06/21/22 Adult Probation Officer Relationship Specialty Start Date End Date Adán Lala MD [address] [place] [address] PCP - General Family Medicine 01/17/23 Eula Tyler PA [address] [facility] [address] [place], [place] [id number] Referring Family Medicine 06/21/22 Adult Probation Officer Relationship Specialty Start Date End Date Adán Lala MD [address] [place] [address] PCP - General Family Medicine 01/17/23 Eula Tyler PA [address] [facility] [address] [place] [address] Referring Family Medicine 06/21/22 Source Comments (unrecognize d section and content) In the event this informatio n is protected by the Federal Confidentiality of Alcohol and Drug Abuse Patient Records regulations: The Federal rules restrict any use of the information to criminally investigate or prosecute any alcohol or drug abuse patient.[facility] Center[facility] the event this information is protected by the Federal Confidentiality of Alcohol and Drug Abuse Patient Records regulations: The Federal rules restrict any use of the information to criminally investigate or prosecute any alcohol or drug abuse patient.[facility] CenterIn the event this information is protected by the Federal Confidentiality of Alcohol and Drug Abuse Patient Records regulations: The Federal rules restrict any use of the information to criminally investigate or prosecute any alcohol or drug abuse patient.[facility] Center[facility] the event this information is protected by the Federal Confidentiality of Alcohol and Drug Abuse Patient Records regulations: The Federal rules restrict any use of the information to criminally investigate or prosecute any alcohol or drug abuse patient.[facility] CenterIn the event this information is protected by the Federal Confidentiality of Alcohol and Drug Abuse Patient Records regulations: The Federal rules restrict any use of the information to criminally investigate or prosecute any alcohol or drug abuse patient.[facility] CenterIn the event this information is protected by the Federal Confidentiality of Alcohol and Drug Abuse Patient Records regulations: The Federal rules restrict any use of the information to criminally investigate or prosecute any alcohol or drug abuse patient.[facility] CenterIn the event this information is protected by the Federal Confidentiality of Alcohol and Drug Abuse Patient Records regulations: The Federal rules restrict any use of the information to criminally investigate or prosecute any alcohol or drug abuse patient.[facility] CenterIn the event this information is protected by the Federal Confidentiality of Alcohol and Drug Abuse Patient Records regulations: The Federal rules restrict any use of the information to criminally investigate or prosecute any alcohol or drug abuse patient.[facility] CenterIn the event this information is protected by the Federal Confidentiality of Alcohol and Drug Abuse Patient Records regulations: The Federal rules restrict any use of the information to criminally investigate or prosecute any alcohol or drug abuse patient.[facility] CenterIn the event this information is protected by the Federal Confidentiality of Alcohol and Drug Abuse Patient Records regulations: The Federal rules restrict any use of the information to criminally investigate or prosecute any alcohol or drug abuse patient.[facility] CenterIn the event this information is protected by the Federal Confidentiality of Alcohol and Drug Abuse Patient Records regulations: The Federal rules restrict any use of the information to criminally investigate or prosecute any alcohol or drug abuse patient.[facility] Reason for Visit (unrecogniz ed section and content) Reason Comments New Patient Reason Comments Results Reason Comments Full Body Skin Check Psoriasis/ blisters sparatic on the body Reason Comments Established Patient Reason Comments Medication Problem Reason Comments Patient Update Bruising Reason Comments Refill Request Reason Comments Patient Question INFORMATION SOURCE (unrecogn ized section and content) DATE CREATED AUTHOR 06/27/2022 [facility] DATE CREATED AUTHOR AUTHOR'S ORGANIZ ATION 03/30/2023 [facility] DATE CREATED AUTHOR AUTHOR'S ORGANIZ ATION 03/30/2023 [facility] FOR RECORDS PERTAINING TO PATIENTS WHO [...] BE BASED ON THE PRIMARY CLINICAL RECORDS. [employer] [facility]. provides no warranty or guarantee of the accuracy or completeness of information in this document.
== END 2023-03-31 13:01 | disposition home or self-care (01) ==
LOC: VC 13:00
PROVIDERS: PCP Radiology Diagnostic Radiology; Visit Provider Radiology Diagnostic Radiology
DX: I80.01 Phlebitis and thrombophlebitis of superficial vessels of right lower extremity (principal)
CPT/HCPCS: 93971; G0463

== ENCOUNTER 2023-07-31 15:56 | Outpatient (OUT) | payer MEDICARE, SELFPAY ==
--- NOTE | 2023-07-31 15:58 | MM_ITS ---
Patient Name: DAVION HUMPHREYS MR#: [id number] : 1955 Exam Date: 07/31/2023 Ordering Doctor: DR Ajith Miller . RADIOLOGY REPORT PROCEDURE: MM TOMOSYNTHESIS SCREENING BI COMPARISON: MG MAMM BENJAMIN SCRN W CAD DIG, 06/09/2014. MG MAMM BENJAMIN SCRN W CAD DIG, 12/14/2015. INDICATIONS: Screening Calculator Name NCI Breast Cancer Risk Assessment Tool 5 Year Breast Cancer Risk 2.30% Lifetime Breast Cancer Risk 7.90% Personal Breast Cancer No Personal Ovarian Cancer No Treatments None Family Cancers Mother with colon cancer at age ~81; Father with pancreas cancer at age 76; Brother with prostate cancer at age ~54. LOCATION: [facility] BREAST COMPOSITION: There are scattered areas of fibroglandular density. FINDINGS: DIAGNOSTIC CATEGORY 2--BENIGN FINDING. NO CHANGE FROM COMPARISON. Scattered benign-appearing calcifications are present. No significant change has occurred. RIGHT BREAST: No significant suspicious finding. LEFT BREAST: No significant suspicious finding. RECOMMENDATIONS: ROUTINE MAMMOGRAM AND CLINICAL EVALUATION IN 12 MONTHS. PLEASE NOTE: A NORMAL MAMMOGRAM DOES NOT EXCLUDE THE POSSIBILITY OF BREAST CANCER. A CLINICALLY SUSPICIOUS PALPABLE LUMP SHOULD BE BIOPSIED. Dictated by: Jamir Sprague MD on 08/01/2023 at 08:08 Approved by: Jamir Sprague MD on 08/01/2023 at 08:28
== END 2023-07-31 15:57 | disposition home or self-care (01) ==
LOC: MAMMO 15:56
PROVIDERS: PCP Family Medicine; Visit Provider Family Medicine
DX: Z12.31 Encounter for screening mammogram for malignant neoplasm of breast (principal); Z80.0 Family history of malignant neoplasm of digestive organs; Z80.8 Family history of malignant neoplasm of other organs or systems; Z80.42 Family history of malignant neoplasm of prostate
CPT/HCPCS: 77063; 77067